=== PATIENT | female | born 1940 | race Caucasian/White ===

== ENCOUNTER → 2016-08-26 | Outpatient (CLI) | payer OTHER ==
[~2016-08-26] MED LIST: ATOR-26 PO; INDA1TAB3 PO; NABU500T3 PO; PRED-301 PO; PRLSR20 PO; SYN75 PO
--- NOTE | 2016-08-26 14:17 | MAMMOGRAPHY REPORT ---
BILATERAL DIGITAL SCREENING MAMMOGRAM WITH CAD: 08/26/2016 CLINICAL HISTORY: Routine screening. Patient has no complaints. TECHNIQUE: Current study was also evaluated with a Computer Aided Detection (CAD) system. Bilatera l CC and MLO views were obtained. COMPARISON: Comparison is made to exams dated: 10/22/2014 mammogram, 08/29/2012 mammogram, 09/07/2013 mammogram, 07/13/2011 mammogram, 06/29/2010 mammogram, and 06/13/2009 mammogram - [facility]. BREAST COMPOSITION: The tissue of both breasts is heterogeneously dense, which may obscure small ma sses. FINDINGS: No suspicious masses, calcifications, or areas of architectural distortion are noted in e ither breast. There has been no significant interval change compared to prior exams. Bilateral dennis gn vascular calcifications are again noted. IMPRESSION: ACR BI-RADS CATEGORY 2: BENIGN There is no mammographic evidence of malignancy. A 1 year screening mammogram is recommended. The p atient will receive written notification of the results. Approximately 10% of breast cancers are not detected with mammography. A negative mammographic repor t should not delay biopsy if a clinically suggestive mass is present. Amy Schroeder M.D. ah/:08/26/2016 13:45:24 Strategic Sourcing Specialist: Yumiko ARRIOLA(R)(M), [facility] letter sent: Normal 1/2 BI-RADS Code: ACR BI-RADS Category 2: Benign
== END | disposition home or self-care (01) ==
LOC: C.MAMM 13:14
PROVIDERS: ATTEND Internal Medicine
DX: Z12.31 Encounter for screening mammogram for malignant neoplasm of breast (principal); M79.671 Pain in right foot

== ENCOUNTER → 2016-08-26 | Outpatient (CLI) | payer OTHER | END | disposition home or self-care (01) | LOC: C.CPL 14:04 | PROVIDERS: ATTEND Orthopaedic Surgery Sports Medicine | DX: M79.671 Pain in right foot (principal) ==

== ENCOUNTER → 2016-11-02 | Outpatient (CLI) | payer OTHER ==
[2016-11-02 10:20] LABS: BASO % 0.2 %; BASO ABS # 0.02 K/uL (0-0.2); COMPLETE YES; EOS % 2.6 %; HEMATOCRIT 37.8 % (37-47); IG% 0.5 %; MEAN CELL VOLUME 86.7 fL (80-100); MEAN CORPUSCULAR HEMOGLOBIN 27.8 pg (25-34); MEAN PLATELET VOLUME 8.4 fL (7.4-10.4); MONO % 8.4 %; NEUT % 44.3 %; PLATELET COUNT 274 K/uL (130-400); RED BLOOD COUNT 4.36 M/uL (4.2-5.4); WHITE BLOOD COUNT 9.32 K/uL (4.8-10.8)
[2016-11-02 10:53] LABS: BLOOD UREA NITROGEN 25 mg/dl (7-18); BUN/CREATININE RATIO 16.8 (10-20); CALCIUM 8.5 mg/dl (8.5-10.1); CARBON DIOXIDE 29 mmol/L (21-32); CHLORIDE 106 mmol/L (98-107); GLUCOSE 74 mg/dl (70-99); POTASSIUM 4.3 mmol/L (3.5-5.1); SODIUM 141 mmol/L (136-145)
[2016-11-02 11:03] LABS: ESTIMATED AVERAGE GLUCOSE 126 mg/dl; HA1C FLAG Normal (Normal)
[2016-11-02 11:05] LABS: C-REACTIVE PROTEIN 5.69 mg/dl (0-0.29)
--- NOTE | 2016-11-11 11:53 | CODING QUERY MEDICAL NECESSITY ---
SUPPORTING DIAGNOSIS NEEDED A supporting diagnosis is required for the test/procedure performed on this patient in order for us to be reimbursed by the patient's insurance. Please provide a supporting diagnosis for the following test/procedure listed below next to the test name along with your signature. *If there is no additional diagnosis for this patient that would support the following test/procedure please document that below next to the test/procedure. Test(s)/Procedure(s) that require a supporting diagnosis: * GLYCATED HEMOGLOBIN DIAGNOSIS: * DOS:11/02/16 Provider Signature: Date: Thank you Floresita Young Health Information Management Once completed, please kindly fax back to [phone] For questions please call [phone]
== END | disposition home or self-care (01) ==
LOC: C.LAB1850 08:58
PROVIDERS: ATTEND Physician Assistant
DX: M19.90 Unspecified osteoarthritis, unspecified site (principal); N28.9 Disorder of kidney and ureter, unspecified; M06.4 Inflammatory polyarthropathy; R73.9 Hyperglycemia, unspecified

== ENCOUNTER → 2017-03-11 | Outpatient (CLI) | payer OTHER ==
[2017-03-11 12:14] LABS: BASO % 0.3 %; BASO ABS # 0.03 K/uL (0-0.2); COMPLETE YES; EOS % 1.7 %; HEMATOCRIT 39.7 % (37-47); IG% 0.7 %; LYMPH % 26.9 %; LYMPH ABS # 2.43 K/uL (1.2-3.4); MEAN CELL VOLUME 89.4 fL (80-100); MEAN CORPUSCULAR HEMOGLOBIN 28.4 pg (25-34); MEAN CORPUSCULAR HGB CONC 31.7 g/dl (32-36); MEAN PLATELET VOLUME 8.7 fL (7.4-10.4); MONO % 6.4 %; PLATELET COUNT 261 K/uL (130-400); RED BLOOD COUNT 4.44 M/uL (4.2-5.4); WHITE BLOOD COUNT 9.05 K/uL (4.8-10.8)
[2017-03-11 12:34] LABS: ALT/SGPT 26 U/L (12-78); AST/SGOT 21 U/L (15-37)
[2017-03-11 12:36] LABS: ALKALINE PHOSPHATASE 68 U/L (45-117)
== END | disposition home or self-care (01) ==
LOC: C.LAB1850 09:42
PROVIDERS: ATTEND Internal Medicine Rheumatology
DX: M06.041 Rheumatoid arthritis without rheumatoid factor, right hand (principal); M06.042 Rheumatoid arthritis without rheumatoid factor, left hand; Z79.52 Long term (current) use of systemic steroids; Z79.899 Other long term (current) drug therapy

== ENCOUNTER → 2017-04-25 | Outpatient (CLI) | payer OTHER ==
[2017-04-25 10:33] LABS: BASO % 0.1 %; BASO ABS # 0.01 K/uL (0-0.2); COMPLETE YES; EOS % 2.1 %; HEMATOCRIT 39.8 % (37-47); IG% 0.6 %; LYMPH % 39.6 %; LYMPH ABS # 3.45 K/uL (1.2-3.4); MEAN CELL VOLUME 89.8 fL (80-100); MEAN CORPUSCULAR HEMOGLOBIN 28.9 pg (25-34); MEAN CORPUSCULAR HGB CONC 32.2 g/dl (32-36); MEAN PLATELET VOLUME 8.7 fL (7.4-10.4); MONO % 8.5 %; NEUT % 49.1 %; PLATELET COUNT 241 K/uL (130-400); RED BLOOD COUNT 4.43 M/uL (4.2-5.4); WHITE BLOOD COUNT 8.71 K/uL (4.8-10.8)
[2017-04-25 10:57] LABS: ALT/SGPT 23 U/L (12-78); AST/SGOT 18 U/L (15-37); BLOOD UREA NITROGEN 39 mg/dl (7-18); BUN/CREATININE RATIO 24.5 (10-20); CALCIUM 8.6 mg/dl (8.5-10.1); CARBON DIOXIDE 27 mmol/L (21-32); CHLORIDE 106 mmol/L (98-107); GLUCOSE 79 mg/dl (70-99); POTASSIUM 4.4 mmol/L (3.5-5.1); SODIUM 140 mmol/L (136-145)
[2017-04-25 11:08] LABS: CHOLESTEROL 154 mg/dl (0-200); CHOLESTEROL/HDL RATIO 1.8; HDL CHOLESTEROL 85 mg/dl; LDL CHOLESTEROL CALCULATED 35 mg/dl; TRIGLYCERIDES 171 mg/dl (0-150); VERY LOW DENSITY LIPOPROT CALC 34 mg/dl
[2017-04-25 11:28] LABS: ESTIMATED AVERAGE GLUCOSE 123 mg/dl; HA1C FLAG Normal (Normal)
[2017-04-25 17:59] LABS: URINE APPEARANCE CLEAR (CLEAR); URINE BILIRUBIN NEG (NEG); URINE COLOR YELLOW; URINE EPITHELIAL CELL AUTO 0-5 /lpf (0-5); URINE NITRITE NEG (NEG); URINE SPECIFIC GRAVITY 1.019 (1.000-1.030); UROBILINOGEN NEG (NEG)
[2017-04-25 18:03] LABS: MANUAL MICROSCOPIC REQUIRED? NO; REVIEW REQ? NO
--- NOTE | 2017-04-29 12:36 | CODING QUERY MEDICAL NECESSITY ---
SUPPORTING DIAGNOSIS NEEDED A supporting diagnosis is required for the test/procedure performed on this patient in order for us to be reimbursed by the patient's insurance. Please provide a supporting diagnosis for the following test/procedure listed below next to the test name along with your signature. *If there is no additional diagnosis for this patient that would support the following test/procedure please document that below next to the test/procedure. Test(s)/Procedure(s) that require a supporting diagnosis: * HEMOGLOBIN A1C DIAGNOSIS: Provider Signature: Date: Thank you Sharlene Mace [employer] Information Management Once completed, please kindly fax back to [phone] For questions please call [phone]
== END | disposition home or self-care (01) ==
LOC: C.LABBC 08:23
PROVIDERS: ATTEND Internal Medicine
DX: E78.00 Pure hypercholesterolemia, unspecified (principal)

== ENCOUNTER → 2017-07-27 | Outpatient (CLI) | payer OTHER ==
--- NOTE | 2017-07-27 17:16 | DIAGNOSTIC IMAGING REPORT ---
R SHOULDER MIN 2 VIEWS ROUTINE CLINICAL HISTORY: 76 years-old Female presenting with S49.90XA Shoulder injuryright. TECHNIQUE: Internal rotation, external rotation, and Grashey views of the right shoulder were obtained. COMPARISON: Correlation made to chest x-ray from 04/30/2013. FINDINGS: Glenohumeral and acromioclavicular joints congruent. No advanced degenerative change. No acute fracture or malalignment. Cystic change suggested at the greater tuberosity suggesting chronic impingement. No radiographic soft tissue abnormality. Visualized portion of the right hemithorax normal. IMPRESSION: No acute osseous injury of the right shoulder. Electronically signed by: Ronak Guajardo M.D. 07/27/2017 5:14 PM Dictated Date/Time: 07/27/2017 5:13 PM
== END | disposition home or self-care (01) ==
LOC: C.RAD1850 16:17
PROVIDERS: ATTEND Physician Assistant
DX: S49.90XA Unspecified injury of shoulder and upper arm, unspecified arm, initial encounter (principal); X58.XXXA Exposure to other specified factors, initial encounter

== ENCOUNTER → 2017-09-13 | Outpatient (CLI) | payer OTHER ==
--- NOTE | 2017-09-14 13:59 | MAMMOGRAPHY REPORT ---
BILATERAL DIGITAL SCREENING MAMMOGRAM TOMOSYNTHESIS WITH CAD: 09/13/2017 CLINICAL HISTORY: Routine screening. Patient has no complaints. TECHNIQUE: Breast tomosynthesis in addition to standard 2D mammography was performed. Current study was also evaluated with a Computer Aided Detection (CAD) system. COMPARISON: Comparison is made to exams dated: 08/26/2016 mammogram, 10/22/2014 mammogram, 09/07/2013 m ammogram, 08/29/2012 mammogram, 07/13/2011 mammogram, and 06/29/2010 mammogram - [facility]. BREAST COMPOSITION: The tissue of both breasts is heterogeneously dense, which may obscure small mas ses. FINDINGS: There are moderate to marked vascular calcifications in the breasts. The parenchymal patte rn is unchanged. No developing mass, architectural distortion or cluster of suspicious microcalcifica tions is seen in either breast. IMPRESSION: ACR BI-RADS CATEGORY 2: BENIGN There is no mammographic evidence of malignancy. A 1 year screening mammogram is recommended. The pa tient will receive written notification of the results. Approximately 10% of breast cancers are not detected with mammography. A negative mammographic report should not delay biopsy if a clinically suggestive mass is present. Cristine Ervin M.D. ay/:09/13/2017 15:30:32 Software Client Architect: Saranya MOBLEY)(Haf[place])(BD), [facility] letter sent: Normal 1/2 BI-RADS Code: ACR BI-RADS Category 2: Benign
== END ==
LOC: C.MAMM 13:22
PROVIDERS: ATTEND Internal Medicine
DX: Z12.31 Encounter for screening mammogram for malignant neoplasm of breast (principal)

== ENCOUNTER → 2017-11-11 | Outpatient (CLI) | payer OTHER ==
[2017-11-11 09:35] LABS: BASO % 0.4 %; BASO ABS # 0.03 K/uL (0-0.2); EOS % 2.3 %; EOS ABS # 0.19 K/uL (0-0.5); HEMATOCRIT 40.1 % (37-47); HEMOGLOBIN 13.2 g/dL (12.0-16.0); IG# 0.05 K/uL (0.00-0.02); LYMPH % 44.8 %; MEAN CELL VOLUME 91.8 fL (80-100); MEAN CORPUSCULAR HEMOGLOBIN 30.2 pg (25-34); MEAN CORPUSCULAR HGB CONC 32.9 g/dl (32-36); MEAN PLATELET VOLUME 8.2 fL (7.4-10.4); MONO % 9.4 %; MONO ABS # 0.78 K/uL (0.11-0.59); NEUT % 42.5 %; NEUT ABS # 3.51 K/uL (1.4-6.5); PLATELET COUNT 238 K/uL (130-400); RED CELL DISTRIBUTION WIDTH SD 47.5 fL (36.4-46.3); WHITE BLOOD COUNT 8.26 K/uL (4.8-10.8)
[2017-11-11 09:48] LABS: ALBUMIN 3.5 gm/dl (3.4-5.0); ALT/SGPT 23 U/L (12-78); BLOOD UREA NITROGEN 38 mg/dl (7-18); CALCIUM 8.9 mg/dl (8.5-10.1); CARBON DIOXIDE 27 mmol/L (21-32); CHOLESTEROL 131 mg/dl (0-200); CREATININE 1.52 mg/dl (0.60-1.20); GLUCOSE 71 mg/dl (70-99); SODIUM 137 mmol/L (136-145)
[2017-11-11 09:57] LABS: ALKALINE PHOSPHATASE 71 U/L (45-117); AST/SGOT 21 U/L (15-37); LDL CHOLESTEROL CALCULATED 38 mg/dl; TOTAL PROTEIN 6.8 gm/dl (6.4-8.2)
[2017-11-11 10:01] LABS: HEMOGLOBIN A1C 5.8 % (4.5-5.6)
[2017-11-11 10:13] LABS: CREATININE RANDOM URINE 67.7 mg/dl
== END | disposition home or self-care (01) ==
LOC: C.LAB 07:42
PROVIDERS: ATTEND Internal Medicine
DX: M85.80 Other specified disorders of bone density and structure, unspecified site (principal); M19.90 Unspecified osteoarthritis, unspecified site; M06.041 Rheumatoid arthritis without rheumatoid factor, right hand; M06.042 Rheumatoid arthritis without rheumatoid factor, left hand; E78.00 Pure hypercholesterolemia, unspecified; Z79.899 Other long term (current) drug therapy

== ENCOUNTER → 2017-11-17 | Outpatient (CLI) | payer OTHER ==
--- NOTE | 2017-11-17 10:27 | DIAGNOSTIC IMAGING REPORT ---
ULTRASOUND ABDOMEN COMPLETE CLINICAL HISTORY: Generalized abdominal pain. COMPARISON STUDY: Abdominal CT dated 12/06/2007. TECHNIQUE: Real-time, grayscale, and color flow sonography of the abdomen was performed. Images are reviewed in the transverse and longitudinal planes. FINDINGS: Liver: The liver is normal in size and echotexture. There is no intrahepatic biliary ductal dilatation. The main portal vein is patent. Gallbladder: The gallbladder is normal in appearance. No gallstones are identified. There is no gallbladder wall thickening or pericholecystic fluid. A sonographic Guido's sign is reportedly absent. The common bile duct measures up to 0.4 cm in diameter. Pancreas: Visualized portions of the pancreatic head are grossly normal in appearance. The majority of the pancreas was not well visualized. Spleen: The spleen is normal in size and echotexture, measuring 7.6 cm in length. Kidneys: There is markedly asymmetric cortical atrophy of the left kidney as compared to the right. The left kidney is echogenic consistent with medical renal disease. There is no hydronephrosis. The right kidney measures 11.0 cm in length and the left kidney measures 5.2 cm in length. No shadowing calculi are identified. Abdominal vasculature: Visualized portions of the abdominal aorta are normal in caliber. Ascites: None. IMPRESSION: 1. No acute sonographic abnormality is identified. 2. There is markedly asymmetric cortical atrophy of the left kidney as compared to the right. This is similar to prior studies. 3. No gallstones are identified. Electronically signed by: Yanick Wolfe M.D. 11/17/2017 10:25 AM Dictated Date/Time: 11/17/2017 10:23 AM
== END | disposition home or self-care (01) ==
LOC: C.ULTR 09:00
PROVIDERS: ATTEND Internal Medicine
DX: R10.819 Abdominal tenderness, unspecified site (principal)

== ENCOUNTER → 2017-12-06 | Day surgery (SDC) | payer OTHER ==
[2017-12-01 08:54] VITALS: Ht 148.6 cm; Wt 60.0 kg
[~2017-12-06] VITALS: Ht 148.6 cm; Wt 60.0 kg
[~2017-12-06] MED LIST changes: +ACET-1311 PO; +CALC-51 PO; +CHOL2000 PO; +CYCL10TA6 PO; +DIAZ-165 PO; +DICL1GEL12 TD; +EZET10TA63 PO; +FENTANYL CITRATE INJ 50 MCG/1 ML 2 ML VIAL ONE; +HYDR200T5 PO; -INDA1TAB3 PO; +LEVO75TA5 PO; +LIDOCAINE HCL 2% 2 ML VIAL (20MG/ML) ONE; +LISI-729 PO; +MELO7.5T5 PO; +MULTTAB58 PO; -NABU500T3 PO; +OXYC-57 PO; +PROPOFOL IV EMULSION 10 MG/ML 20 ML VIAL ONE; +SODIUM CHLORIDE 0.9% 500ML 500 ML IV ONE; -SYN75 PO; +ULT50 PO
--- NOTE | 2017-12-06 11:53 | Endo History and Physical ---
History & Physical Date of Service: December 06, 2017. Chief Complaint: Change in bowel habits, GERD, Early satiety Referring Physician: Dr. Medina History of Present Illness 77 yo CF who presents for EGD and colonoscopy secondary to GERD, Early satiety and change in bowel habits. Past Surgical History Hx Cardiac Surgery: No Hx Internal Defibrillator: No Hx Pacemaker: No Hx Abdominal Surgery: Yes (HYSTERECTOMY, A&P REPAIR) Hx Post-Op Nausea and Vomiting: No Hx Cancer Surgery: No Hx Thoracic Surgery: No Hx Orthopedic: Yes (R FOOT 2ND TOE AMPUTATED) Hx Urinary Tract Surgery: Yes (URETEROLYSIS-MARCOS) Social History Smoking Status: Former Smoker Hx Substance Use: Yes (OXYCODONE PRN ) Hx Alcohol Use: Yes (OCCASIONAL GLASS OF WINE) Allergies Coded Allergies: No Known Allergies (Verified , 12/01/17) Current Medications Reported Home Medications Medications Dose Route/Sig Max Daily Dose Days Date Category Dose Instructions Vitamin D3 (Cholecalciferol) 2,000 Unit Cap 1 Cap PO DAILY 30 12/01/17 Reported Tylenol (Acetaminophen) 325 Mg Tab 325 Mg PO Q6H PRN 12/01/17 Reported Tramadol HCl 50 Mg Tab 1-2 Tabs PO Q4H PRN 12/01/17 Reported Percocet 5MG/325MG (Oxycodone/Acetaminophen) Tab 1 Tablet PO Q4H PRN 12/01/17 Reported PAIN Multivitamin (Multiple Vitamin) 1 Tab Tab 1 Tab PO DAILY 90 12/01/17 Reported Mobic (Meloxicam) 7.5 Mg Tab 7.5 Mg PO BID 12/01/17 Reported Prinivil (Lisinopril) 5 Mg Tab 5 Mg PO QAM 12/01/17 Reported Plaquenil (Hydroxychloroquine Sulfate) 200 Mg Tab 200 Mg PO DAILY 12/01/17 Reported Zetia (Ezetimibe) 10 Mg Tab 10 Mg PO DAILY 12/01/17 Reported Voltaren 1% Top Gel (Diclofenac Sodium (Topical)) 1 % Gel TD QID 12/01/17 Reported Valium (Diazepam) 5 Mg Tab 5 Mg PO DIRECTED PRN 12/01/17 Reported Flexeril (Cyclobenzaprine Hcl) 10 Mg Tab 1 Tab PO HS 30 12/01/17 Reported Calcium (Calcium Carbonate-Vitamin D) 1 Tab Tab 2 Tabs PO BID 12/01/17 Reported Levothyroxine Sodium 75 Mcg Tab 1 Tab PO DAILY 30 12/01/17 Reported Lipitor (Atorvastatin Calcium) 80 Mg Tab 80 Mg PO DAILY 11/26/07 Reported Prednisone 5 Mg Tab 7.5 Mg PO DAILY 11/26/07 Reported TAKES 1 1/2 TABS Prilosec (Omeprazole) 20 Mg Capcr 20 Mg PO BID 11/26/07 Reported Vital Signs Weight (Kilograms): 60 Height (Feet): 4 Height (Inches): 10.5 Physical Exam General Appearance: WD/WN, no apparent distress Respiratory/Chest: Auscultation: breath sounds normal Cardiovascular: Heart Auscultation: RRR Abdomen: Bowel Sounds: normal Inspection & Palpation: soft, non-distended, no tenderness, guarding & rebound Assessment and Plan Assessment: 77 yo CF who presents for EGD and colonoscopy secondary to GERD, Early satiety and change in bowel habits. Plan: Proceed with EGD and Colonoscopy.
--- NOTE | 2017-12-06 13:59 | Discharge Instructions ---
Endoscopy Patient Instructions Date / Procedure(s) Performed December 06, 2017. Colonoscopy, EGD Allergy Information Coded Allergies: No Known Allergies (Verified , 12/01/17) Discharge Date / Findings December 06, 2017. EGD: Hiatal hernia Colonoscopy: Diverticulosis, Internal hemorrhoids Medication Instructions Stopped Medication(s): Patient was told to hold mobic and plaquenil. OK to resume all medications today as prescribed Reported Home Medications Medications Dose Route/Sig Max Daily Dose Days Date Category Dose Instructions Vitamin D3 (Cholecalciferol) 2,000 Unit Cap 1 Cap PO DAILY 30 12/01/17 Reported Tylenol (Acetaminophen) 325 Mg Tab 325 Mg PO Q6H PRN 12/01/17 Reported Tramadol HCl 50 Mg Tab 1-2 Tabs PO Q4H PRN 12/01/17 Reported Percocet 5MG/325MG (Oxycodone/Acetaminophen) Tab 1 Tablet PO Q4H PRN 12/01/17 Reported PAIN Multivitamin (Multiple Vitamin) 1 Tab Tab 1 Tab PO DAILY 90 12/01/17 Reported Mobic (Meloxicam) 7.5 Mg Tab 7.5 Mg PO BID 12/01/17 Reported Prinivil (Lisinopril) 5 Mg Tab 5 Mg PO QAM 12/01/17 Reported Plaquenil (Hydroxychloroquine Sulfate) 200 Mg Tab 200 Mg PO DAILY 12/01/17 Reported Zetia (Ezetimibe) 10 Mg Tab 10 Mg PO DAILY 12/01/17 Reported Voltaren 1% Top Gel (Diclofenac Sodium (Topical)) 1 % Gel TD QID 12/01/17 Reported Valium (Diazepam) 5 Mg Tab 5 Mg PO DIRECTED PRN 12/01/17 Reported Flexeril (Cyclobenzaprine Hcl) 10 Mg Tab 1 Tab PO HS 30 12/01/17 Reported Calcium (Calcium Carbonate-Vitamin D) 1 Tab Tab 2 Tabs PO BID 12/01/17 Reported Levothyroxine Sodium 75 Mcg Tab 1 Tab PO DAILY 30 12/01/17 Reported Lipitor (Atorvastatin Calcium) 80 Mg Tab 80 Mg PO DAILY 11/26/07 Reported Prednisone 5 Mg Tab 7.5 Mg PO DAILY 11/26/07 Reported TAKES 1 1/2 TABS Prilosec (Omeprazole) 20 Mg Capcr 20 Mg PO BID 11/26/07 Reported Provider Instructions Activity Restrictions - No exercising or heavy lifting for 24 hours. - Do not drink alcohol the day of the procedure. - Do not drive a car or operate machinery until the day after the procedure. - Do not make any important decisions or sign important papers in 24 hours after the procedure. Following Day: - Return to full activity which may include returning to work/school. Diet Start your diet with liquids and light foods (jello, soup, juice, toast). Then eat your usual diet if not nauseated. Treatment For Common After Affects For mild abdominal pain, bloating, or excessive gas: - Rest - Eat lightly - Lie on right side Follow-Up Information Follow-up with Dr. Burke Medina as scheduled Anesthesia Information What You Should Know You have had a procedure that required some medicine to reduce anxiety and discomfort. This treatment is called moderate sedation. After receiving the treatment, you may be sleepy, but you will be able to breathe on your own. The effects of the treatment may last for several hours. Follow these instructions along with Activity/Diet recommendations noted above: * Do NOT do anything where dizziness or clumsiness would be dangerous. * Rest quietly at home today, then you can be up and about tomorrow. * Have a responsible person stay with you the rest of today. * You may have had an I.V. today. If so, you may take the dressing off later today. Recommendations Call your doctor if: * Trouble breathing * Continuous vomiting for more than 24 hours * Temperature above 101 degrees * Severe abdominal pain or bloating * Pain not relieved by pain medicine ordered * There is increased drainage or redness from any incision * A large amount of rectal bleeding greater than 2-3 tablespoons. (If you had a polyp/s removed or have hemorrhoids, a small amount of blood - from the rectum is to be expected.) * You have any unanswered questions or concerns. IN THE EVENT OF A SERIOUS EMERGENCY, GO TO THE NEAREST EMERGENCY ROOM Your discharge instructions were prepared by provider Shawn Jama. Patient Instructions Signature Page Shruthi Brannon Patient (or Guardian) Signature/Date: I have read and understand the instructions given to me by my caregivers. Caregiver/RN/Doctor Signature/Date: The above-named patient and/or guardian has received patient instructions on this date. + Original Patient Signature Page (only) stays with chart. Please make copy for patient.
--- NOTE | 2017-12-06 14:01 | GI REPORT ---
Patient Name: Shruthi Brannon Procedure Date: 12/06/2017 12:10 PM Date of : 1940 Admit Type: Outpatient Age: 77 Gender: Female Attending MD: Shawn Jama DO Procedure: Upper GI endoscopy Providers: Shawn Jama DO Referring MD: Burke Medina Indications: Gastro-esophageal reflux disease, Early satiety Medicines: Monitored Anesthesia Care Complications: No immediate complications. Estimated Blood Loss: Estimated blood loss: none. Procedure: Pre-Anesthesia Assessment: - Prior to the procedure, a History and Physical was performed, and patient medications and allergies were reviewed. The patient's tolerance of previous anesthesia was also reviewed. The risks and benefits of the procedure and the sedation options and risks were discussed with the patient. All questions were answered, and informed consent was obtained. Prior Anticoagulants: The patient has taken no previous anticoagulant or antiplatelet agents. ASA Grade Assessment: III - A patient with severe systemic disease. After reviewing the risks and benefits, the patient was deemed in satisfactory condition to undergo the procedure. After obtaining informed consent, the endoscope was passed under direct vision. Throughout the procedure, the patient's blood pressure, pulse, and oxygen saturations were monitored continuously. The scope was introduced through the mouth, and advanced to the second part of duodenum. The upper GI endoscopy was accomplished without difficulty. The patient tolerated the procedure well. Findings: The esophagus was normal. A large hiatal hernia was present. The examined duodenum was normal. Impression: - Normal esophagus. - Large hiatal hernia. - Normal examined duodenum. - No specimens collected. Recommendation: - Resume previous diet. - Continue present medications. - Return to primary care physician as previously scheduled. - Refer to a surgeon at appointment to be scheduled. Shawn Jama DO 12/06/2017 2:01:32 PM This report has been signed electronically. Note Initiated On: 12/06/2017 12:10 PM Number of Addenda: 0 I attest to the content of the Intraoperative Record and orders documented therein, exceptions below {[id number]}
--- NOTE | 2017-12-06 14:06 | GI REPORT ---
Patient Name: Shruthi Brannon Procedure Date: 12/06/2017 1:25 PM Date of : 1940 Admit Type: Outpatient Age: 77 Gender: Female Attending MD: Shawn Jama DO Procedure: Colonoscopy Providers: Shawn Jama DO Referring MD: Burke Medina Indications: Change in bowel habits Medicines: Monitored Anesthesia Care Complications: No immediate complications. Estimated Blood Loss: Estimated blood loss: none. Procedure: Pre-Anesthesia Assessment: - Prior to the procedure, a History and Physical was performed, and patient medications and allergies were reviewed. The patient's tolerance of previous anesthesia was also reviewed. The risks and benefits of the procedure and the sedation options and risks were discussed with the patient. All questions were answered, and informed consent was obtained. Prior Anticoagulants: The patient has taken no previous anticoagulant or antiplatelet agents. ASA Grade Assessment: III - A patient with severe systemic disease. After reviewing the risks and benefits, the patient was deemed in satisfactory condition to undergo the procedure. After I obtained informed consent, the scope was passed under direct vision. Throughout the procedure, the patient's blood pressure, pulse, and oxygen saturations were monitored continuously. The scope was introduced through the anus and advanced to the terminal ileum. The quality of the bowel preparation was good. The terminal ileum, ileocecal valve, appendiceal orifice, and rectum were photographed. The colonoscopy was performed with moderate difficulty due to restricted mobility of the colon and a redundant colon. Successful completion of the procedure was aided by changing the patient to a supine position and applying abdominal pressure. The patient tolerated the procedure fairly well. Findings: The perianal and digital rectal examinations were normal. Multiple small-mouthed diverticula were found in the sigmoid colon. Non-bleeding internal hemorrhoids were found during retroflexion. The hemorrhoids were small. Impression: - Diverticulosis in the sigmoid colon. - Non-bleeding internal hemorrhoids. - No specimens collected. Recommendation: - Resume previous diet. - Continue present medications. - No repeat colonoscopy due to age and the absence of advanced adenomas. - Return to primary care physician as previously scheduled. Shawn Jama DO 12/06/2017 2:05:46 PM This report has been signed electronically. Note Initiated On: 12/06/2017 1:25 PM Number of Addenda: 0 I attest to the content of the Intraoperative Record and orders documented therein, exceptions below {[id number]}
[2017-12-06 14:22] VITALS: BP 145/97; PULSE 82; O2SAT 100
--- NOTE | 2017-12-06 14:35 | Anesthesiology Progress Note ---
Anesthesia Post Op Note Date & Time December 06, 2017 at 14:34 Vital Signs Pain Intensity: 0 Vital Signs Past 12 Hours Date Time Temp Pulse Resp B/P (MAP) Pulse Ox O2 Delivery O2 Flow Rate FiO2 12/06/17 14:22 82 20 145/97 (113) 100 Room Air 12/06/17 14:12 79 20 153/68 (96) 99 Room Air 12/06/17 14:02 88 20 160/90 (113) 98 Room Air 12/06/17 12:02 36.7 104 22 191/95 (127) 98 Room Air Notes Mental Status: alert / awake / arousable, participated in evaluation Pt Amnestic to Procedure: Yes Nausea / Vomiting: adequately controlled Pain: adequately controlled Airway Patency, RR, SpO2: stable & adequate BP & HR: stable & adequate Hydration State: stable & adequate Anesthetic Complications: no major complications apparent
== END | disposition home or self-care (01) ==
LOC: C.GI 11:35
PROVIDERS: ATTEND Internal Medicine
DX: R19.4 Change in bowel habit (principal); K21.9 Gastro-esophageal reflux disease without esophagitis; R68.81 Early satiety; K57.30 Diverticulosis of large intestine without perforation or abscess without bleeding; K64.8 Other hemorrhoids; K44.9 Diaphragmatic hernia without obstruction or gangrene; I10 Essential (primary) hypertension; N18.9 Chronic kidney disease, unspecified; Z90.710 Acquired absence of both cervix and uterus; Z89.421 Acquired absence of other right toe(s); Z87.891 Personal history of nicotine dependence; Z79.899 Other long term (current) drug therapy; Z85.71 Personal history of Hodgkin lymphoma

== ENCOUNTER 2018-08-15 06:27 | Inpatient (IN) ==
--- NOTE | 2018-07-26 13:24 | Anesthesiology Consultation ---
Date of Service July 26, 2018 Assessment & Plan (1) Encounter for pre-operative examination: Chart Review Chart Review: Acceptable Risk for Surgery (PENDING REVIEW OF PREOP LABS) and Patient seen in Pre Admission Testing Teaching & Discussion Pre-Anesthesia Teaching/Discussion Notes: Instructed NPO after midnight before surgery,except medications with 15 cc of water. Medication instructions provided according to the PAT guidelines. History Surgery Operation Date: 08/15/18 12:30 Proposed Procedures p Right Total Knee Arthroplasty - Rudolph Rodriguez MD Height/Weight Height: 4 ft 10.5 in Weight: 60.5 kg Allergies Allergy/AdvReac Type Severity Reaction Status Date / Time No Known Allergies Allergy Unknown Verified 07/21/18 14:06 Medications Home Medications Medication Instructions Recorded Confirmed Last Taken atorvastatin 80 mg PO HS 05/05/18 07/21/18 05/04/18 cholecalciferol (vitamin D3) 2,000 unit PO QAM 05/05/18 07/21/18 05/05/18 [Vitamin D3] cyclobenzaprine 10 mg PO HS 05/05/18 07/21/18 05/04/18 ezetimibe [Zetia] 10 mg PO QAM 05/05/18 07/21/18 05/05/18 hydroxychloroquine [Plaquenil] 200 mg PO QAM 05/05/18 07/21/18 05/05/18 levothyroxine 75 mcg PO QAM 05/05/18 07/21/18 05/05/18 meloxicam 7.5 mg PO BID 05/05/18 07/21/18 05/05/18 multivitamin 1 tab PO QDD 05/05/18 07/21/18 05/05/18 omeprazole 20 mg PO BID 05/05/18 07/21/18 05/05/18 prednisone 7.5 mg PO DAILY 05/05/18 07/21/18 05/05/18 tramadol 50 - 100 mg PO Q6H PRN 05/05/18 07/21/18 Unknown acetaminophen [Tylenol Extra 1,000 mg PO UD PRN 07/21/18 07/21/18 Unknown Strength] calcium carbonate [Calcium 600] 600 mg PO UD 07/21/18 07/21/18 Unknown lisinopril 10 mg PO QAM 07/21/18 07/21/18 Unknown oxycodone-acetaminophen 1 - 2 tab PO Q6H PRN 07/21/18 07/21/18 Unknown Past Medical History Medical History Acid reflux CONTROLLED Chronic kidney disease 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 Hiatal hernia History of Hodgkin's lymphoma S/P RADIATION/CHEMO (2000) Hyperlipidemia Hypertension Hypothyroidism Mixed stress and urge urinary incontinence Rheumatoid arthritis ON PLAQUENIL AND CHRONIC PREDNISONE 7.5MG DAILY Sciatica Scoliosis Past Family History Family History Mother Family history of lung cancer Brother Family history of lung cancer Past Surgical History Surgical History History of bilateral cataract extraction RIGHT CATARACT EXTRACTION WITH IOL= 04/05/18= MAC SEDATION AT [facility] History of colonoscopy History of gynecologic surgery ANTERIOR AND POSTERIOR REPAIR History of hysterectomy History of removal of cyst HEAD (BENIGN) History of tonsillectomy History of urologic surgery URETEROLYSIS Past Anesthesia History No Hx of Anesthesia Complications and No Family Hx of Anesthesia Complications History of PONV No Motion Sickness Screening History of Motion Sickness: No Social History Smoking Status: Former smoker Smoking cigarettes per day: QUIT 1985 Do You Dip or Chew Tobacco: No Hx Alcohol Use: Yes Alcohol type: wine alcohol intake frequency: holidays/special occasions only Hx Substance Use: No substance use type: does not use Exercise / Class Metabolic Activity III < 4 Walking/Shop/Light housework Review of Systems Reflux controlled. Patient denies chest pain, shortness of breath, cough, wheezing, palpitations. Physical Exam Vital Signs VITALS BP 114/73 P 95 TEMP 99.0 SP02 94%RA RESP 20 Mildly decreased cervical extension. Small neck. Full TMJ range of motion. TMD 3 finger breaths Mallampati Score 2 Dentition: upper left front permanent implant (plan for cap procedure prior to surgery- surgeon aware) Lungs: clear throughout to auscultation Cardiac: regular rate and rhythm, no murmurs noted Spine: normal Carotid arteries: negative bruit Extremities: no edema Testing Electrocardiogram Date: 05/05/18 NSR at 81bpm. LAD. Voltage criternia for LVH. No significant change compared to 08/2016 per cardio. Chest X-Ray Date: 07/26/18 Large hiatal hernia. The heart is top normal for projection and there is atherosclerotic calcification of the thoracic aorta. Chronic interstitial thickening is similar to previous. There is mild elevation of the right hemidiaphragm with bibasilar scarring/atelectasis. Cervical Spine Date: 07/26/18 Degenerative changes within the cervical spine described above. Alignment remains intact throughout flexion and extension.
--- NOTE | 2018-07-26 13:27 | PAT Medication Instructions ---
Medication Instructions Date of Service July 26, 2018 Home Medications atorvastatin 80 mg PO HS cholecalciferol (vitamin D3) 2,000 unit PO QAM cyclobenzaprine 10 mg PO HS ezetimibe [Zetia] 10 mg PO QAM hydroxychloroquine [Plaquenil] 200 mg PO QAM levothyroxine 75 mcg PO QAM meloxicam 7.5 mg PO BID multivitamin 1 tab PO QDD omeprazole 20 mg PO BID prednisone 7.5 mg PO DAILY tramadol 50 - 100 mg PO Q6H PRN acetaminophen [Tylenol Extra 1,000 mg PO UD PRN calcium carbonate [Calcium 600] 600 mg PO UD lisinopril 10 mg PO QAM oxycodone-acetaminophen 1 - 2 tab PO Q6H PRN Continue as directed prednisone 7.5 mg PO DAILY ASK your surgeon for instructions meloxicam 7.5 mg PO BID ASK your prescriber and surgeon hydroxychloroquine [Plaquenil] 200 mg PO QAM DO NOT take the morning of surgery cholecalciferol (vitamin D3) 2,000 unit PO QAM calcium carbonate [Calcium 600] 600 mg PO UD lisinopril 10 mg PO QAM Take morning of surgery With a small sip of water, OTHERWISE NOTHING TO EAT OR DRINK AFTER MIDNIGHT: ezetimibe [Zetia] 10 mg PO QAM levothyroxine 75 mcg PO QAM omeprazole 20 mg PO BID tramadol 50 - 100 mg PO Q6H PRN (okay to take up to 4 hours prior to surgery if needed) acetaminophen [Tylenol Extra 1,000 mg PO UD PRN (okay to take up to 4 hours prior to surgery if needed) oxycodone-acetaminophen 1 - 2 tab PO Q6H PRN (okay to take up to 4 hours prior to surgery if needed) Take evening before surgery atorvastatin 80 mg PO HS cyclobenzaprine 10 mg PO HS multivitamin 1 tab PO QDD omeprazole 20 mg PO BID tramadol 50 - 100 mg PO Q6H PRN (if needed) acetaminophen [Tylenol Extra 1,000 mg PO UD PRN (if needed) oxycodone-acetaminophen 1 - 2 tab PO Q6H PRN (if needed) Other Notes If you have any questions please call us at [phone] or [phone] or [phone] or [phone]
--- NOTE | 2018-07-26 15:19 | XRay Report ---
XR cervical spine 2 or 3V CLINICAL HISTORY: RHEUMATOID ARTHRITIS. Preop. COMPARISON STUDY: None. FINDINGS: Lateral views of the cervical spine in neutral, flexion, and extension were performed. The cervical spine is visualized from C1 through T1. Severe disc space narrowing at C4-C5, C5-C6, and C6- C7. There is straightening of the cervical spine. Prevertebral soft tissues and the C1-C2 interval ar e intact. Moderate facet degenerative changes within the mid to lower cervical spine. There is 2 mm o f anterolisthesis of C4 and C5 and 1 mm of anterolisthesis of C6 on C7. This is maintained throughout flexion and extension. IMPRESSION: Degenerative changes within the cervical spine described above. Alignment remains intact throughout flexion and extension. Electronically signed by: Guillermo Tolbert M.D. 07/26/2018 3:18 PM
--- NOTE | 2018-07-26 15:25 | XRay Report ---
TWO VIEW CHEST CLINICAL HISTORY: Preoperative examination. FINDINGS: PA and lateral chest radiographs are compared to study dated 05/05/2018 and correlated with chest CT dated 04/28/2012. There is a large hiatal hernia. The heart is top normal for projection and there is atherosclerotic calcification of the thoracic aorta. The mediastinal contour is within bree l limits. Chronic interstitial thickening is similar to previous. There is mild elevation of the righ t hemidiaphragm with bibasilar scarring/atelectasis. There is no airspace consolidation, pleural effu gonzalez, or pneumothorax. The skeletal structures are osteopenic. Degenerative change and scoliosis are noted throughout the thoracic spine. Surgical clips are seen in the upper abdomen. IMPRESSION: 1. No active disease in the chest. 2. Hiatal hernia. Electronically signed by: Yanick Wolfe M.D. 07/26/2018 3:24 PM
[2018-07-26 15:58] LABS: Basophils # (auto) 0.01 K/uL (0-0.2); Basophils % (auto) 0.1 %; Eosinophils # (auto) 0.02 K/uL (0-0.5); Eosinophils % (auto) 0.2 %; Hematocrit (blood only) 38.2 % (37-47); Hemoglobin 12.4 g/dL (12.0-16.0); Immature Granulocytes # (auto) 0.06 K/uL (0.00-0.02); Immature Granulocytes % (auto) 0.6 %; Lymphocytes # (auto) 1.33 K/uL (1.2-3.4); Lymphocytes % (auto) 13.8 %; Mean Corpuscular Hgb Conc 32.5 g/dL (32-36); Mean Corpuscular Volume 94.6 fL (80-100); Mean Platelet Volume 8.6 fL (7.4-10.4); Monocytes % (auto) 3.1 %; Neutrophils # (auto) 7.95 K/uL (1.4-6.5); Neutrophils % (auto) 82.2 %; Platelet Count 287 K/uL (130-400); RDW Coefficient of Variation 13.8 % (11.5-14.5); RDW Standard Deviation 47.7 fL (36.4-46.3); Red Blood Count 4.04 M/uL (4.2-5.4); White Blood Count 9.67 K/uL (4.8-10.8)
[2018-07-26 16:11] LABS: Partial Thromboplastin Ratio 1.1; Partial Thromboplastin Time 29.6 Seconds (21.0-31.0)
[2018-07-26 16:18] LABS: BUN Creatinine Ratio 22.1 (10-20); Calcium 8.9 mg/dl (8.5-10.1); Creatinine Clr Calc Pharmacy 25.3 ml/min; Est GFR (African American) 39.1; Est GFR (Non-African American) 33.7
--- NOTE | 2018-08-12 10:58 | History and Physical Report ---
DATE OF ADMISSION: 08/15/2018 CHIEF COMPLAINT: Right knee pain. HISTORY OF PRESENT ILLNESS: A 77-year-old female who has been a long-term patient of my partner Dr. Feliciano. She has a long history of right knee pain and discomfort dating back to 5 plus years ago. She has been through extensive conservative treatment including steroid shots and viscosupplementation, which have become less successful over time. She describes anterior pain but some global pain medial and lateral. The more she walks, the more it hurts. It is increased going up and down steps. The last injections really have not helped much at all. Pain has become more disabling. She can participate in activities that she would like due to pain. She would like to proceed with surgical treatment. Of note, the patient has had arthritis managed by Dr. Doe, her ink maker. She has been on prednisone as well as multiple different medicines which do not seem to be helping much anymore. PAST MEDICAL HISTORY: 1. Hypertension. 2. Elevated cholesterol. 3. Sleep apnea. 4. Hypothyroidism. 5. Gastroesophageal reflux disease. 6. History of Hodgkin's disease in 2000, in remission. 7. Chronic renal insufficiency followed by Dr. Medina with a creatinine of 1.50. PAST SURGICAL HISTORY: 1. Tonsillectomy. 2. Hysterectomy. 3. A and P repair. 4. Ureterolysis. 5. 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 ALLERGIES: None. CURRENT MEDICATIONS: 1. Hydroxychloroquine 200 mg a day. 2. Lisinopril once a day. 3. Levothyroxine 75 mcg a day. 4. Prednisone 2.5 mg a day. 5. Zetia 10 mg. 6. Cyclobenzaprine 10 mg. 7. Omeprazole 20 mg. 8. Atorvastatin 80 mg. 9. Calcium 400 mg twice a day. 10. Vitamin D3 2000 International Units daily. 11. Tramadol 1-2 tablets at bedtime for sleep. SOCIAL HISTORY: A 77-year-old female. She does not smoke. One drink per week. FAMILY HISTORY: Noncontributory. REVIEW OF SYSTEMS: Significant for Hodgkin's disease in remission. She does have chronic renal insufficiency, followed by Dr. Medina. No chest pain, no shortness of breath. No signs of DVT or PE. PHYSICAL EXAMINATION: GENERAL: Reveals a pleasant, small elderly female. Looks to be in pretty good health. HEENT: Benign. NECK: Supple. No lymphadenopathy. LUNGS: Clear to auscultation. HEART: Has a regular rate and rhythm. ABDOMEN: Soft, nontender, nondistended. EXTREMITIES: Grossly neurovascularly intact except as follows: Examination of the right leg reveals patient ambulates independently. Fairly mild limp. She does have a [id number] sized knee effusion. Range of motion 0-125. She got crepitance with knee motion. No instability. No pain with hip motion. X-RAYS: The x-rays of the right knee were reviewed. She has a moderate tibiofemoral arthritis with advanced patellofemoral disease on the right side. ASSESSMENT: A 77-year-old female with a 5-plus-year history of increased right knee pain and discomfort, unresponsive to conservative treatment. Most severe disease in the patellofemoral compartment, but some tibiofemoral disease as well. She would like to proceed with surgical treatment. PLAN: We are going to take her to the operating room and will do a right total knee replacement. The risks and benefits of this procedure were explained to the patient, including but not limited to, DVT, PE, , infection, neurological injury, vascular injury, bleeding problem, pain, limited range of motion, stiffness, failure to relieve symptoms, incomplete relief of symptoms, need for further surgery in the future, fracture, leg length inequality, nerve palsy, failure to relieve her symptoms. The patient understands and desires to proceed. Informed consent was obtained. I did tell her that total knee replacement for patellofemoral arthritis is less predictable as far as pain relief and she is aware of this and would like to proceed. We will have to hold any NSAIDs due to her chronic renal insufficiency. We will follow her creatinine in the hospital. She will hold her lisinopril the morning of surgery. She should not need stress dose prednisone based on her low dose that she takes preoperatively. She does take tramadol which will make pain control a little bit more difficult postoperatively. As far as discharge plan, she is hoping to go to [facility] or maybe home with [facility]. We will see how she does in the hospital.
[~2018-08-15 06:27] MED LIST changes: -ACET-1311 PO; +ACETAMINOPHEN 500 MG TAB PO SCH; -ATOR-26 PO; +BUPIVACAINE 0.5 % 5 MG/1 ML PF 10ML VIAL ONE; +BUPIVACAINE LIPOSOME/PF 266 MG, BUPIVACAINE/EPINEPHRINE 50 ML, SODIUM CHLORIDE 0.9% 30 ... INFIL SCH; -CALC-51 PO; +CEFAZOLIN 2000MG 2,000 MG/15 ML SYR IV SCH; -CHOL2000 PO; -CYCL10TA6 PO; -DIAZ-165 PO; -DICL1GEL12 TD; -EZET10TA63 PO; +FAMOTIDINE 20 MG TAB PO SCH; -FENTANYL CITRATE INJ 50 MCG/1 ML 2 ML VIAL ONE; +GABAPENTIN 300 MG PO SCH; -HYDR200T5 PO; -LEVO75TA5 PO; -LIDOCAINE HCL 2% 2 ML VIAL (20MG/ML) ONE; -LISI-729 PO; +LR 60ML/HR IV SCH; -MELO7.5T5 PO; +METOCLOPRAMIDE HCL 10 MG TABLET PO SCH; -MULTTAB58 PO; -OXYC-57 PO; -PRED-301 PO; -PRLSR20 PO; -PROPOFOL IV EMULSION 10 MG/ML 20 ML VIAL ONE; +ROPIVACAINE 0.5% 5 MG/ML 30 ML VIAL ONE; -SODIUM CHLORIDE 0.9% 500ML 500 ML IV ONE; -ULT50 PO
[2018-08-15] MEDS ORDERED: EPINEPHrine INJ 1 MG/ML AMP ONE ×2 (06:28→09:04)
[2018-08-15] MEDS ORDERED: TRANEXAMIC ACID 1,000 MG **IV Intra-op IV SCH (06:30)
--- NOTE | 2018-08-15 06:57 | History & Physical Bridge Note ---
Date of Service August 15, 2018 History & Physical Bridge Note I have examined the patient, reviewed the History & Physical and in the interval since the performance of the History & Physical I have noted the following changes of clinical significance: no changes noted
[2018-08-15] MEDS: LR 500ML BOLUS, THEN 15ML/HR IV SCH ×6 (07:00→19:21)
[2018-08-15] MEDS ORDERED: LABETALOL HCL IV 5 MG/ML 20ML IV PRN (08:12)
[2018-08-15] MEDS ORDERED: PHENYLEPHRINE 100MCG/ML 5ML SYR IV PRN (08:12)
[2018-08-15] MEDS ORDERED: ATROPINE SULFATE 0.1 MG/ML 10ML SYR IV PRN (08:12)
[2018-08-15] MEDS ORDERED: ePHEDrine sulfate 50 MG/ML AMP IV PRN (08:12)
[2018-08-15] MEDS ORDERED: MEPERIDINE HCL 25 MG/ML CARP IV PRN (08:12)
[2018-08-15] MEDS ORDERED: fentaNYL citrate 100 MCG/2 ML VIAL IV PRN (08:12)
[2018-08-15] MEDS ORDERED: ONDANSETRON INJ 2 MG/ML 2 ML VIAL IV PRN ×2 (08:12→12:26)
[2018-08-15] MEDS ORDERED: fentaNYL citrate 100 MCG/2 ML VIAL ONE (08:16)
[2018-08-15] MEDS ORDERED: MIDAZOLAM HCL 1 MG/ML 2ML VIAL ONE (08:16)
[2018-08-15] MEDS ORDERED: BACITRACIN INJ 50,000 UNIT VIAL ONE (09:04)
[2018-08-15] MEDS ORDERED: SODIUM CHLORIDE 0.9% PF 50 ML VIAL ONE (09:04)
[2018-08-15] MEDS ORDERED: BUPIVACAINE LIPOSOME 1.3% 266 MG/20 ML VIAL INFIL ONE (09:04)
[2018-08-15] MEDS ORDERED: BUPIVACAINE 0.25% 30 ML VIAL ONE (09:05)
[2018-08-15] MEDS ORDERED: ePHEDrine sulfate 50 MG/ML SYR ONE (09:59)
[2018-08-15] MEDS ORDERED: PROPOFOL IV EMULSION 10 MG/ML 20 ML VIAL IV ONE (09:59)
[2018-08-15] MEDS ORDERED: PHENYLEPHRINE HCL 10 MG/ML VIAL ONE (09:59)
[2018-08-15] MEDS ORDERED: LIDOCAINE HCL 2% 2 ML VIAL/AMP(20MG/ML) INFIL ONE (09:59)
[2018-08-15] MEDS ORDERED: PHENYLEPHRINE 100MCG/ML 5ML SYR ONE (09:59)
--- NOTE | 2018-08-15 11:00 | Post Operative Brief Note ---
Immediate Post Op Note v1 Date of Surgery August 15, 2018 Pre & Post Diagnosis Operation Date: 08/15/18 08:50 Pre-Op Diagnosis: Right Knee Degenerative Joint Disease Post-Op Diagnosis: Right Knee Degenerative Joint Disease Procedure Operation Date: 08/15/18 08:50 Actual Procedures p Right Total Knee Arthroplasty(Right) - Rudolph Rodriguez MD Surgeon Rudolph Rodriguez MD Tutor Coordinator Sin, PAC Estimated Blood Loss 50 Findings Consistent with Post-Op Diagnosis Fluids 1000 cc Specimens Right Knee Drains Velázquez Catheter Anesthesia Type Spinal MAC Complications none Disposition Accompanied Patient To Recovery: No Disposition: Recovery Room
--- NOTE | 2018-08-15 11:49 | XRay Report ---
RIGHT KNEE 2 VIEWS History: Right total knee arthroplasty. Degenerative arthritis. Postop. FINDINGS: The patient is status post a right total knee arthroplasty. The hardware is intact. No frac ture or dislocation. Skin levy are in place. IMPRESSION: Right total knee arthroplasty. No evidence for hardware complication. Electronically signed by: Guillermo Tolbert M.D. 08/15/2018 11:48 AM
--- NOTE | 2018-08-15 11:58 | Anesthesiology Progress Note ---
Date of Service August 15, 2018 Anesthesia Post Procedure Vital Signs Vital Signs: Temp Pulse Pulse Resp BP Pulse Ox 08/15/18 11:45 97 H 13 113/79 97 08/15/18 11:35 36.3 C L 97 H 15 137/79 98 08/15/18 11:25 101 H 17 136/78 99 08/15/18 11:15 99 H 17 125/85 100 08/15/18 11:06 36.8 C 101 H 23 125/76 100 08/15/18 07:43 37 C 95 H 20 120/81 96 Pain Intensity Right Knee: Pain Intensity: 1 Notes Mental Status: alert / awake / arousable Patient Amnestic to Procedure: Yes Nausea / Vomiting: adequately controlled Pain: adequately controlled Airway Patency, RR, SpO2: stable & adequate BP & HR: stable & adequate Hydration State: stable & adequate Neuraxial Anesthesia: was administered and sensory block is resolving Anesthetic Complications: no major complications apparent and Pt Satisfied with anesthetic care
[2018-08-15] MEDS ORDERED: BISACODYL 10 MG SUPP PR PRN (12:26)
[2018-08-15] MEDS ORDERED: MAGNESIUM HYDROXIDE SUSP 30 ML UDC PO PRN (12:26)
[2018-08-15] MEDS ORDERED: METOCLOPRAMIDE HCL INJ 5 MG/ML 2 ML VIAL IV PRN (12:26)
[2018-08-15] MEDS ORDERED: ALUMINUM/MAGNESIUM SUSP 30 ML UDC PO PRN (12:26)
[2018-08-15] MEDS ORDERED: GLUCOSE 40% GEL 15 GM TUBE PO PRN (12:26)
[2018-08-15] MEDS ORDERED: CARBOHYDRATES FOR HYPOGLYCEMIA PO PRN (12:26)
[2018-08-15] MEDS ORDERED: GLUCAGON FOR INJ 1 MG VIAL SQ PRN (12:26)
[2018-08-15] MEDS ORDERED: DEXTROSE 50% 50 ML SYRINGE IV PRN (12:26)
[2018-08-15] MEDS ORDERED: GLUCOSE 10 TABS/TUBE PO PRN (12:26)
[2018-08-15] MEDS ORDERED: PHARMACY GLYCEMIC MGMT CONSULT PRN (12:29)
[2018-08-15] MEDS: SODIUM CHLORIDE 0.9% 1000ML 1,000 ML IV SCH ×2 (13:00→21:50)
[2018-08-15] MEDS: HYDROmorphone INJ 0.5 MG/0.5 ML SYR IV PRN ×3 (13:05→22:18)
[2018-08-15] MEDS: ACETAMINOPHEN 500 MG TAB PO SCH ×2 (13:48→21:01)
--- NOTE | 2018-08-15 13:51 | Operative Report ---
DATE OF OPERATION: 08/15/2018 SURGEON: Rudolph Rodriguez MD CHIEF MEDICAL DIRECTOR: USMAN Mansfield PREOPERATIVE DIAGNOSIS: Right knee degenerative joint disease. POSTOPERATIVE DIAGNOSIS: Right knee degenerative joint disease. PROCEDURE PERFORMED: Right cemented posterior stabilized total knee arthroplasty. COMPLICATIONS: None. ESTIMATED BLOOD LOSS: 50 mL. FLUID REPLACEMENT: 1000 mL crystalloid fluid replacement. ANESTHESIA: Spinal with adductor canal block. DRAINS: None. SPECIMENS: Right knee sent for pathology. OPERATIVE INDICATIONS: The patient is a 77-year-old female who has had a long history of right knee pain and discomfort. She has been followed by my partner, Dr. Feliciano as well as a naval architect specialist locally. She has been through extensive conservative care which became less successful over time. X-ray shows advanced patellofemoral arthritis. She had some fairly mild to moderate tibiofemoral arthritis. She failed all conservative treatment and is having recurrent pain, swelling and large knee effusions. The patient elected to proceed with operative treatment. OPERATIVE FINDINGS: Operative findings revealed advanced right knee DJD with grade 4 bone on bone disease of the trochlea as well as the patella, particularly the lateral facet. She had mild tracking of the patella laterally with eburnation of the trochlea laterally. She had some fairly akql-br-dqqahfrc tibiofemoral disease. She had a large knee joint effusion without slight valgus alignment to her knee. TOURNIQUET TIME: Tourniquet time was 55 minutes at 300 mmHg. OPERATIVE IMPLANTS: Operative implants consisted of: 1. A Biomet Vanguard size 60 right posterior stabilized femoral component. 2. A Biomet size 63 tibial tray. 3. A 10 mm posterior stabilized polyethylene insert. 4. A 28 x 8 all poly patella. OPERATIVE PROCEDURE: The patient was taken to the operating room, identified and placed on the operative table in supine position. All contact areas were appropriately padded. IV antibiotics were provided by anesthesia team. A spinal anesthetic and adductor canal block had been provided in the holding area. Velázquez catheter was placed in sterile fashion. A right thigh tourniquet was then placed and the right lower extremity was then prepped and draped in usual sterile fashion. The right leg was elevated and exsanguinated with Esmarch and tourniquet was placed at 300 mmHg. An anterior approach of the right knee was then performed through a longitudinal incision centered over the patella. Sharp dissection was carried through subcutaneous tissue down to the level of the extensor mechanism. A medial parapatellar arthrotomy incision was made. Some subperiosteal dissection was carried out medially. The fat pad resected from beneath the patellar tendon. The lateral patellofemoral ligament was released. The patella was everted and knee was flexed. The osteophytes were taken off the distal femur. The ACL and PCL were then released from the distal femur. The tibia subluxated anteriorly. The external tibial alignment jig was then placed in the anterior face of the tibia and adjusted 14 mm medially. Proximal tibial cut was made to remove about 2-3 mm of bone from the most deficient aspect of the medial tibial plateau. The tibia was sized to a size 63. Attention was then drawn to the femur. The distal femur was entered with a sharp drill. Intramedullary canal was suctioned. A right 5-degree valgus cutting guide was placed. Distal femoral cutting block was pinned in place. Distal femoral cut was made to take an additional 3 mm of bone off the distal femur. The knee was brought out into full extension. I did release some of the IT band and posterolateral capsule in order to equalize the extension gap. Great care was taken to protect the peroneal nerve at all times. The knee was then flexed. The femur was then sized to a size 60. The AP cutting block was pinned parallel to the epicondylar axis, which was 5 degrees of external rotation. The anterior cut, anterior chamfer, posterior cut, posterior chamfer cuts were made. Box cutting guide was placed and adjusted slightly lateral and the box cut was made. The knee was flexed. The remnants of the medial and lateral menisci were excised. The osteophytes were taken off the posterior aspect of the femur. I did release the popliteus in order to equalize the flexion gap. A right size 60 posterior stabilized femoral component was then placed followed by a size 63 tibial tray. The tibial tray was pinned in maximum external rotation. The drill and stem punch were used to create defect in proximal tibia for the tibial tray. I then trialed the knee and 10 mm insert fit most appropriately. Attention was then drawn to patella. The patella was cleaned of all soft tissues. Patella thickness was measured 23 mm medially and was cut down to 14. It was sized to a size 28 patella. Lug holes were drilled for the 28 patella. Lateral osteophyte was removed. The knee was taken through range of motion and patella tracked nicely with no thumbs test. I did downsize the patella slightly in order to maximize tracking. Attention was then drawn toward placement of permanent components. All trial components were removed. Bone plug was placed in the distal femur to limit blood loss. A double batch of Palacos G cement was mixed. A Biomet Vanguard 60 size right posterior stabilized femoral component, size 63 tibial tray, 10 mm posterior stabilized polyethylene insert, 28 x 8 all poly patella then cemented in place. Knee was brought down into full extension until the cement hardened. A final cement check was then performed. Pericapsular tissues were injected with a total of 100 mL of a combination of 20 mL of Exparel, 30 mL of normal saline, 50 mL of 0.25% Marcaine with epinephrine. The patient did receive 1 gram of tranexamic acid. The tourniquet was then let down for a tourniquet time of 55 minutes. Hemostasis was assured with use of electrocautery. The extensor mechanism was then closed with combination of #1 PDS suture and #1 Vicryl suture in a [id number] fashion. Extensor mechanism was checked and found to be intact. The subcutaneous tissues were then closed with #2 Dexon suture in a buried interrupted fashion. Skin was closed with skin levy. Leg was then cleaned, dried and a sterile dressing of Xeroform, 4 x 4, sterile cast padding and Francis bandage were applied. The patient was transferred to the recovery room in stable condition. The patient tolerated the procedure well with no complication. All needle and sponge counts were correct at the end of the operation. I attest to the content of the Intraoperative Record and any orders documented therein. Any exception s are noted below.
[2018-08-15] MEDS: MULTIVITAMIN TAB PO SCH (15:36)
[2018-08-15] MEDS: TRAMADOL HCL 50 MG TABLET PO PRN ×3 (15:50→21:48)
[2018-08-15] MEDS ORDERED: TRANEXAMIC ACID 1,000 MG in 0.9 % SODIUM CHLORIDE 100 ML IV SCH (18:00)
[2018-08-15] MEDS: FERROUS GLUCONATE 324 MG TAB PO SCH (18:10)
[2018-08-15] MEDS: CEFAZOLIN 1000MG 1,000 MG/7.5 ML SYR IV SCH (18:11)
[2018-08-15] MEDS: INSULIN ASPART 100 UNITS/ML 3 ML PEN SC SCH ×2 (18:19→20:58)
[2018-08-15] MEDS: SENNA 8.6 MG TAB PO SCH (20:52)
[2018-08-15] MEDS: DOCUSATE SODIUM 100 MG CAP PO SCH (20:53)
[2018-08-15] MEDS: ASPIRIN 81 MG ECTAB PO SCH (20:54)
[2018-08-15] MEDS: CYCLOBENZAPRINE HCL 10 MG TAB PO SCH (20:54)
[2018-08-15] MEDS: MELOXICAM 7.5 MG TAB PO SCH (20:55)
[2018-08-15] MEDS: ATORVASTATIN 40 MG TAB PO SCH (20:55)
[2018-08-15] MEDS: PANTOprazole 40 MG TAB PO SCH (20:56)
[2018-08-15] MEDS ORDERED: LISINOPRIL 10 MG TAB PO STA (22:35)
[2018-08-16] MEDS: CEFAZOLIN 1000MG 1,000 MG/7.5 ML SYR IV SCH (01:18)
[2018-08-16] MEDS: HYDROmorphone INJ 0.5 MG/0.5 ML SYR IV PRN ×4 (02:23→16:32)
[2018-08-16] MEDS: LEVOTHYROXINE SODIUM 75 MCG TABLET PO SCH (05:18)
[2018-08-16] MEDS: ACETAMINOPHEN 500 MG TAB PO SCH ×3 (05:18→21:39)
[2018-08-16 06:37] LABS: Hematocrit (blood only) 35.7 % (37-47); Hemoglobin 11.5 g/dL (12.0-16.0); Mean Corpuscular Hgb Conc 32.2 g/dL (32-36); Mean Corpuscular Volume 93.7 fL (80-100); Mean Platelet Volume 8.6 fL (7.4-10.4); Platelet Count 225 K/uL (130-400); RDW Coefficient of Variation 13.9 % (11.5-14.5); RDW Standard Deviation 47.6 fL (36.4-46.3); Red Blood Count 3.81 M/uL (4.2-5.4); White Blood Count 11.47 K/uL (4.8-10.8)
[2018-08-16 06:50] LABS: Estimated Average Glucose 128 mg/dl
[2018-08-16 07:04] LABS: BUN Creatinine Ratio 19.3 (10-20); Creatinine Clr Calc Pharmacy 26.1 ml/min; Est GFR (African American) 40.7; Est GFR (Non-African American) 35.1; Potassium 3.8 mmol/L (3.5-5.1)
[2018-08-16] MEDS: TRAMADOL HCL 50 MG TABLET PO PRN (08:44)
[2018-08-16] MEDS: FERROUS GLUCONATE 324 MG TAB PO SCH ×2 (08:45→17:55)
[2018-08-16] MEDS: DOCUSATE SODIUM 100 MG CAP PO SCH ×2 (08:46→20:21)
[2018-08-16] MEDS: ASPIRIN 81 MG ECTAB PO SCH ×2 (08:46→20:17)
[2018-08-16] MEDS: MELOXICAM 7.5 MG TAB PO SCH ×2 (08:47→20:18)
[2018-08-16] MEDS: CALCIUM CARBONATE 1250MG TAB PO SCH (08:48)
[2018-08-16] MEDS: HYDROXYCHLOROQUINE SULFATE 200 MG TAB PO SCH (08:49)
[2018-08-16] MEDS: CHOLECALCIFEROL 1,000 UNITS TAB PO SCH (08:49)
[2018-08-16] MEDS: PANTOprazole 40 MG TAB PO SCH ×2 (08:49→20:19)
[2018-08-16] MEDS: EZETIMIBE 10 MG TABLET PO SCH (08:50)
[2018-08-16] MEDS: predniSONE 5 MG TAB PO SCH (08:50)
[2018-08-16] MEDS: LISINOPRIL 10 MG TAB PO SCH (08:50)
[2018-08-16] MEDS ORDERED: MULTIVITAMIN TAB PO SCH (09:00)
[2018-08-16] MEDS ORDERED: PANTOprazole 40 MG TAB PO SCH (09:00)
[2018-08-16] MEDS: INSULIN ASPART 100 UNITS/ML 3 ML PEN SC SCH ×4 (09:19→21:38)
--- NOTE | 2018-08-16 10:59 | Anesthesiology Progress Note ---
Date of Service August 16, 2018 Anesthesia Post Procedure Vital Signs Vital Signs: Temp Pulse Pulse Resp BP BP Pulse Ox 08/16/18 08:05 37.4 C 90 20 176/94 H 95 08/16/18 03:20 36.8 C 86 16 150/75 H 92 08/15/18 23:25 36.9 C 95 H 16 163/82 H 93 08/15/18 22:48 173/91 H 08/15/18 22:05 188/103 H 08/15/18 19:23 36.8 C 86 18 156/96 H 92 08/15/18 15:02 36.4 C L 92 H 16 163/96 H 100 08/15/18 14:00 94 H 18 129/78 97 08/15/18 12:56 106 H 16 156/88 H 97 08/15/18 12:34 36.6 C 93 H 16 124/73 98 08/15/18 12:00 36.7 C 99 H 16 128/78 98 08/15/18 11:45 97 H 13 113/79 97 08/15/18 11:35 36.3 C L 97 H 15 137/79 98 08/15/18 11:25 101 H 17 136/78 99 08/15/18 11:15 99 H 17 125/85 100 08/15/18 11:06 36.8 C 101 H 23 125/76 100 Pain Intensity Right Knee: Pain Intensity: 7 Notes Mental Status: alert / awake / arousable and participated in evaluation Patient Amnestic to Procedure: Yes Nausea / Vomiting: adequately controlled Pain: adequately controlled Airway Patency, RR, SpO2: stable & adequate BP & HR: stable & adequate Hydration State: stable & adequate Neuraxial Anesthesia: was administered and sensory block resolved Anesthetic Complications: no major complications apparent and Pt Satisfied with anesthetic care
[2018-08-16] MEDS: MULTIVITAMIN TAB PO SCH (15:43)
--- NOTE | 2018-08-16 16:12 | Progress Note ---
DATE: 08/16/2018 SUBJECTIVE: A 77-year-old female postop day 1 from right knee replacement. Quite a bit more painful today. She chronically takes tramadol and does not feel like this is working adequately for her. No chest pain or shortness of breath. Not feeling dizzy or lightheaded. OBJECTIVE: VITAL SIGNS: Temperature 37.5. Vital signs stable. She has been hypertensive. PHYSICAL EXAMINATION: Reveals a pleasant, middle-aged female. She is lying in bed and talking to her daughter. She looks reasonably comfortable. EXTREMITIES: Examination of the right leg reveals the leg to be well aligned. She can dorsiflex and plantarflex her foot appropriately. She is neurologically intact. LABORATORY DATA: Hemoglobin is 11.5, hematocrit 35.7. Electrolytes are stable. Creatinine stable at 1.45. ASSESSMENT: A 77-year-old female postop day 1 from a right knee replacement, doing reasonably well. She is on chronic tramadol and would like better pain control. PLAN: 1. DVT prophylaxis including thigh-high TEDs, SCDs, and aspirin twice a day. 2. PT and OT. Weight bear as tolerated. Right total knee protocol. 3. Pain control. We are going to take her off the tramadol and put her on some oxycodone. She can continue to use Tylenol. Will use her NSAID that she used preoperative but have to be careful due to renal function. 4. Disposition: She is hoping to be discharged to rehab. Social service is working on that now.
[2018-08-16] MEDS: ATORVASTATIN 40 MG TAB PO SCH (20:20)
[2018-08-16] MEDS: SENNA 8.6 MG TAB PO SCH (20:20)
[2018-08-16] MEDS: CYCLOBENZAPRINE HCL 10 MG TAB PO SCH (20:21)
[2018-08-17] MEDS: OXYCODONE HCL IR 5 MG TAB (IMMEDIATE RELEASE) PO PRN ×5 (00:03→20:57)
[2018-08-17] MEDS: LEVOTHYROXINE SODIUM 75 MCG TABLET PO SCH (05:33)
[2018-08-17] MEDS: ACETAMINOPHEN 500 MG TAB PO SCH ×3 (05:33→20:59)
--- NOTE | 2018-08-17 07:48 | Progress Note ---
DATE: 08/17/2018 SUBJECTIVE: A 77-year-old white female postop day 2 from right knee replacement. Doing little bit better on the oxycodone. She certainly slept better last night. No chest pain or shortness of breath. Not feeling dizzy or lightheaded. OBJECTIVE: VITAL SIGNS: Temperature 37.5. Vital signs stable. GENERAL: Physical examination shows a pleasant elderly female. She is lying in bed, looks reasonably comfortable. EXTREMITIES: Examination of the right leg reveals the leg to be well aligned. Dressing is clean, dry and intact. Calf is soft and supple. She is neurologically intact. ASSESSMENT: A 77-year-old white female postop day 2 from right knee replacement, doing reasonably well. Pain seems to be a bit better on the oxycodone. PLAN: 1. DVT prophylaxis including thigh-high TEDs, SCDs, and aspirin twice a day. 2. PT/OT. Weight bear as tolerated. Right total knee protocol. 3. Pain control. Doing reasonably well on current pain regimen. Seems to be doing better on the oxycodone. If need, we may need to adjust to Dilaudid depending on her pain control. 4. Disposition: She is hoping to be discharged to rehab. I think we have a bed available today and will see how things go as far as her recovery and pain control.
[2018-08-17] MEDS: CALCIUM CARBONATE 1250MG TAB PO SCH (09:00)
[2018-08-17] MEDS: DOCUSATE SODIUM 100 MG CAP PO SCH ×2 (09:00→20:00)
[2018-08-17] MEDS: predniSONE 5 MG TAB PO SCH (09:00)
[2018-08-17] MEDS: PANTOprazole 40 MG TAB PO SCH ×2 (09:00→20:01)
[2018-08-17] MEDS: EZETIMIBE 10 MG TABLET PO SCH (09:01)
[2018-08-17] MEDS: CHOLECALCIFEROL 1,000 UNITS TAB PO SCH (09:01)
[2018-08-17] MEDS: HYDROXYCHLOROQUINE SULFATE 200 MG TAB PO SCH (09:02)
[2018-08-17] MEDS: LISINOPRIL 10 MG TAB PO SCH (09:02)
[2018-08-17] MEDS: MELOXICAM 7.5 MG TAB PO SCH ×2 (09:03→20:03)
[2018-08-17] MEDS: FERROUS GLUCONATE 324 MG TAB PO SCH ×2 (09:03→16:25)
[2018-08-17] MEDS: ASPIRIN 81 MG ECTAB PO SCH ×2 (09:03→20:00)
[2018-08-17] MEDS: INSULIN ASPART 100 UNITS/ML 3 ML PEN SC SCH ×4 (09:04→20:59)
[2018-08-17] MEDS: MULTIVITAMIN TAB PO SCH (15:08)
[2018-08-17] MEDS: ATORVASTATIN 40 MG TAB PO SCH (20:02)
[2018-08-17] MEDS: CYCLOBENZAPRINE HCL 10 MG TAB PO SCH (20:03)
[2018-08-17] MEDS: SENNA 8.6 MG TAB PO SCH (20:04)
[2018-08-18] MEDS: LEVOTHYROXINE SODIUM 75 MCG TABLET PO SCH (05:33)
[2018-08-18] MEDS: ACETAMINOPHEN 500 MG TAB PO SCH ×3 (05:34→21:42)
[2018-08-18] MEDS: OXYCODONE HCL IR 5 MG TAB (IMMEDIATE RELEASE) PO PRN ×4 (07:25→21:47)
--- NOTE | 2018-08-18 07:31 | Progress Note ---
DATE: 08/18/2018 SUBJECTIVE: A 77-year-old white female postop day 3 from right knee replacement. Continues to get better pain pacheco. She was planning on leaving yesterday but, bed not available at [facility]. No new complaints. Pain is improved a bit. No chest pain or shortness of breath. OBJECTIVE: VITAL SIGNS: Temperature is 36.9. Vital signs stable. GENERAL: Physical examination shows a pleasant, middle-aged female. She is lying in bed, looks reasonably comfortable. EXTREMITIES: Examination of the right leg reveals the leg to be well aligned. Dressing is clean, dry and intact. Swelling is pretty mild. Calf is soft and supple. She is neurologically intact. ASSESSMENT: A 77-year-old white female postop day 3 from right knee replacement, doing pretty well. Pain is improving. PLAN: 1. DVT prophylaxis including thigh-high TEDs, SCDs, and aspirin twice daily. 2. PT/OT - WBAT. Right TKR Protocol 3. Tranfer to [facility] or SNF when bed available. DICTATION ENDS HERE MTDD
[2018-08-18] MEDS: FERROUS GLUCONATE 324 MG TAB PO SCH ×2 (09:23→18:49)
[2018-08-18] MEDS: EZETIMIBE 10 MG TABLET PO SCH (09:24)
[2018-08-18] MEDS: DOCUSATE SODIUM 100 MG CAP PO SCH ×2 (09:24→21:42)
[2018-08-18] MEDS: MELOXICAM 7.5 MG TAB PO SCH ×2 (09:24→21:42)
[2018-08-18] MEDS: PANTOprazole 40 MG TAB PO SCH ×2 (09:25→21:42)
[2018-08-18] MEDS: predniSONE 5 MG TAB PO SCH (09:25)
[2018-08-18] MEDS: HYDROXYCHLOROQUINE SULFATE 200 MG TAB PO SCH (09:26)
[2018-08-18] MEDS: CALCIUM CARBONATE 1250MG TAB PO SCH (09:26)
[2018-08-18] MEDS: CHOLECALCIFEROL 1,000 UNITS TAB PO SCH (09:26)
[2018-08-18] MEDS: ASPIRIN 81 MG ECTAB PO SCH ×2 (09:27→21:42)
[2018-08-18] MEDS: LISINOPRIL 10 MG TAB PO SCH (09:27)
[2018-08-18] MEDS: INSULIN ASPART 100 UNITS/ML 3 ML PEN SC SCH ×4 (09:28→20:51)
[2018-08-18] MEDS: MULTIVITAMIN TAB PO SCH (16:58)
[2018-08-18] MEDS: CYCLOBENZAPRINE HCL 10 MG TAB PO SCH (21:42)
[2018-08-18] MEDS: ATORVASTATIN 40 MG TAB PO SCH (21:42)
[2018-08-18] MEDS: SENNA 8.6 MG TAB PO SCH (21:44)
[2018-08-19] MEDS: OXYCODONE HCL IR 5 MG TAB (IMMEDIATE RELEASE) PO PRN ×2 (02:55→09:12)
[2018-08-19] MEDS: ACETAMINOPHEN 500 MG TAB PO SCH (06:13)
[2018-08-19] MEDS: LEVOTHYROXINE SODIUM 75 MCG TABLET PO SCH (06:13)
--- NOTE | 2018-08-19 08:48 | Progress Note ---
DATE: 08/19/2018 SUBJECTIVE: A 77-year-old white female postop day 4 from a right knee replacement. She is doing pretty well. Pain is getting a little bit better daily. Just waiting for placement. No chest pain or shortness of breath. She has been frustrated by the placement issue. OBJECTIVE: VITAL SIGNS: Temperature 36.8. Vital signs stable. GENERAL: Physical examination shows a pleasant, middle-aged female. She is lying in bed, looks pretty comfortable. EXTREMITIES: Examination of the right leg reveals the leg to be well aligned. Dressing is clean, dry and intact. No drainage. Calf is soft and supple. ASSESSMENT: A 77-year-old white female postop day 4 from right total knee replacement, doing reasonably well. Pain seems to be improving. Just waiting for placement. PLAN: 1. DVT prophylaxis including thigh-high TEDs, SCDs, and aspirin twice a day. 2. PT/OT. Weight bear as tolerated. Right total knee protocol. 3. Pain control. Doing reasonably well with current pain regimen. 4. Disposition: Plan to discharge to [facility]. Waiting for bed availability. If not found, she is willing to go to a senior care facility as a second resort. BARTOLOME
[2018-08-19] MEDS: DOCUSATE SODIUM 100 MG CAP PO SCH (09:13)
[2018-08-19] MEDS: FERROUS GLUCONATE 324 MG TAB PO SCH (09:13)
[2018-08-19] MEDS: CHOLECALCIFEROL 1,000 UNITS TAB PO SCH (09:13)
[2018-08-19] MEDS: EZETIMIBE 10 MG TABLET PO SCH (09:13)
[2018-08-19] MEDS: PANTOprazole 40 MG TAB PO SCH (09:14)
[2018-08-19] MEDS: predniSONE 5 MG TAB PO SCH (09:14)
[2018-08-19] MEDS: ASPIRIN 81 MG ECTAB PO SCH (09:15)
[2018-08-19] MEDS: MELOXICAM 7.5 MG TAB PO SCH (09:15)
[2018-08-19] MEDS: CALCIUM CARBONATE 1250MG TAB PO SCH (09:15)
[2018-08-19] MEDS: LISINOPRIL 10 MG TAB PO SCH (09:16)
[2018-08-19] MEDS: HYDROXYCHLOROQUINE SULFATE 200 MG TAB PO SCH (09:16)
[2018-08-19] MEDS: INSULIN ASPART 100 UNITS/ML 3 ML PEN SC SCH (09:18)
--- NOTE | 2018-08-22 15:14 | Discharge Summary ---
ADMITTING PHYSICIAN AND SURGEON: Dr. Rodriguez. ADMITTING DIAGNOSIS: Right knee degenerative joint disease. SURGERY PERFORMED: Right total knee arthroplasty. SECONDARY DIAGNOSES: Hypertension, elevated cholesterol, sleep apnea, hypothyroidism, gastroesophageal reflux disease, history of Hodgkin's lymphoma, chronic renal insufficiency. CONSULTS: None obtained. HISTORY AND PHYSICAL EXAMINATION: Well documented in the patient's chart. HOSPITAL COURSE: The patient was admitted a 08/15/2018 and underwent total knee arthroplasty, tolerated the procedure well. There were no complications. She was transferred to the PACU postoperatively and later to the orthopedic floor for further care. She was given Ancef for antibiotic prophylaxis, MAYANK stockings, SCDs and aspirin for DVT prophylaxis. Hemoglobin, hematocrit and vital signs were monitored during hospital stay and remained stable. She developed some mild postoperative anemia, did not require any blood transfusions. There were no complications. On postoperative day 4, she was tolerating a diabetic diet. Pain was controlled with oral pain medicine. She was participating in physical therapy. On postop day 4, she was transferred to rehab facility. She was given printed discharge instructions including new prescriptions for extra strength Tylenol, aspirin, iron supplement and oxycodone. Continue her home medications with the exception of her home dose of Tylenol, which was changed. Discontinue Percocet and tramadol. Continue physical therapy, weightbearing as tolerated, MAYANK stockings. Follow up approximately 2 weeks postoperatively or sooner if any problems or concerns.
== END 2018-08-19 11:55 | DRG 470 ==
LOC: ASU 06:27 → 3E 11:07

== ENCOUNTER 2020-03-27 09:54 | Inpatient (IN) ==
[2020-03-27] MEDS ORDERED: SODIUM CHLORIDE 0.9% 1000ML 1,000 ML IV ONE (10:28)
[2020-03-27] MEDS ORDERED: METOCLOPRAMIDE HCL INJ 5 MG/ML 2 ML VIAL IV STA (10:29)
[2020-03-27 11:09] LABS: Basophils # (auto) 0.01 K/uL (0-0.2); Basophils % (auto) 0.1 %; Eosinophils % (auto) 1.1 %; Hematocrit (blood only) 34.3 % (37-47); Hemoglobin 12.2 g/dL (12.0-16.0); Immature Granulocytes % (auto) 1.1 %; Lymphocytes # (auto) 1.87 K/uL (1.2-3.4); Lymphocytes % (auto) 21.1 %; Mean Corpuscular Hgb Conc 35.6 g/dL (32-36); Mean Corpuscular Volume 87.3 fL (80-100); Mean Platelet Volume 7.8 fL (7.4-10.4); Monocytes # (auto) 1.19 K/uL (0.11-0.59); Monocytes % (auto) 13.4 %; Neutrophils # (auto) 5.61 K/uL (1.4-6.5); Neutrophils % (auto) 63.2 %; Platelet Count 251 K/uL (130-400); RDW Standard Deviation 42.2 fL (36.4-46.3); Red Blood Count 3.93 M/uL (4.2-5.4); White Blood Count 8.88 K/uL (4.8-10.8)
[2020-03-27 11:28] LABS: Alanine Aminotransferase 22 U/L (12-78); Albumin Level 3.1 gm/dl (3.4-5.0); Aspartate Aminotransferase 28 U/L (15-37); BUN Creatinine Ratio 16.9 (10-20); Blood Urea Nitrogen 21 mg/dl (7-18); Calcium 9.3 mg/dl (8.5-10.1); Carbon Dioxide 27 mmol/L (21-32); Chloride 85 mmol/L (98-107); Est GFR (African American) 49.5; Est GFR (Non-African American) 42.7; Glucose 83 mg/dl (70-99); Lipase 98 U/L (73-393); Potassium 3.9 mmol/L (3.5-5.1); Sodium 121 mmol/L (136-145)
[2020-03-27 11:30] LABS: Albumin Globulin Ratio 0.9 (0.9-2); Alkaline Phosphatase 67 U/L (45-117); Bilirubin,Total 0.5 mg/dl (0.2-1); Creatine Kinase 198 U/L (26-192); Globulin 3.5 gm/dl (2.5-4.0); Total Protein 6.6 gm/dl (6.4-8.2)
[2020-03-27] MEDS ORDERED: ROPINIROLE HCL 0.25 MG TABLET PO STA (11:40)
[2020-03-27] MEDS ORDERED: BENZTROPINE MESYLATE 1 MG/ML 2 ML AMP IV STA (11:40)
[2020-03-27] MEDS ORDERED: ONDANSETRON INJ 2 MG/ML 2 ML VIAL IV STA (11:41)
[2020-03-27 12:30] LABS: Appearance Urine Clear (Clear); Bilirubin Urine Negative (Negative); Blood Urine Negative (Negative); Color Urine Yellow; Glucose Urine UA Negative (Negative); Ketones Urine Negative (Negative); Leukocyte Esterase Urine Negative (Negative); Nitrite Urine Negative (Negative); Protein Urine Negative (Negative); Urobilinogen Urine Negative (Negative); pH Urine 6.5 (4.5-7.5)
[2020-03-27] MEDS ORDERED: HYDROCORTISONE SOD SUCCINATE 100 MG/2 ML VIAL IV STA (12:46)
[2020-03-27] MEDS ORDERED: LORazepam 0.5 MG/1 ML VIAL IV STA (12:53)
[2020-03-27] MEDS ORDERED: SODIUM CHLORIDE 0.9% 1000ML 500 ML IV ONE (13:35)
[2020-03-27] MEDS ORDERED: LORazepam 1 MG/2 ML VIAL IV STA ×2 (14:04→15:31)
[2020-03-27] MEDS ORDERED: levETIRAcetam 1,000 MG in 0.9 % SODIUM CHLORIDE 100 ML IV STA (14:07)
--- NOTE | 2020-03-27 14:46 | Emergency Department Note ---
History of Present Illness General Chief complaint: Vomiting Stated complaint: VOMITING, WEAK Time Seen by Provider: 03/27/20 10:23 Source: patient, family, RN notes reviewed and old records reviewed Mode of arrival: ambulatory Limitations: no limitations History of Present Illness Provider complaint: restless legs, vomiting Onset (ago): day(s) 1 Location: lower extremity Radiation: non-radiation Severity: moderate Pain Consistency: + intermittent Maximum Pain Intensity: 3 Current Pain Intensity: 3 Exacerbated By: + eating Associated symptoms: no chest pain, no fever/chills and no nausea/vomiting Treatments prior to arrival: none This is a 79-year-old female who recently had shoulder surgery and was placed on oxycodone who presents the emergency department complaining of nausea and vomiting. The patient has a history of inflammatory arthritis for which she takes prednisone. She also has a history of restless legs syndrome. Her family members concerned because her restless leg syndrome appears wildly out of control last evening. She takes Requip for this. Home Medications Home Medications Medication Instructions Recorded Confirmed Type cholecalciferol (vitamin D3) 2,000 unit PO QAM 05/05/18 03/27/20 History [Vitamin D3] multivitamin 1 tab PO QDD 05/05/18 03/27/20 History ezetimibe 10 mg tablet 10 mg PO QAM #90 tab 05/04/19 03/27/20 Rx calcium carbonate 600 mg calcium 600 mg PO BID tab 06/19/19 03/27/20 History (1,500 mg) tablet oxycodone-acetaminophen 5 mg-325 1 tab PO Q6H PRN #90 tab 06/21/19 03/27/20 Rx mg tablet ropinirole 0.25 mg tablet 0.25 mg PO HS #90 tab 07/03/19 03/27/20 Rx atorvastatin 80 mg tablet 80 mg PO HS #90 tab 07/16/19 03/27/20 Rx cyclobenzaprine 10 mg tablet 10 mg PO HS PRN #90 tab 07/16/19 03/27/20 Rx omeprazole 20 mg capsule,delayed 20 mg PO BID #180 cap 07/16/19 03/27/20 Rx release prednisone 5 mg tablet 7.5 mg PO DAILY #60 tab 08/15/19 03/27/20 Rx hydrochlorothiazide 25 mg tablet 25 mg PO DAILY #90 tab 09/27/19 03/27/20 Rx levothyroxine 75 mcg tablet 75 mcg PO QAM #90 tab 10/19/19 03/27/20 Rx ropinirole 2 mg tablet,extended 2 mg PO DAILY #90 tab 12/25/19 03/27/20 Rx release 24 hr diclofenac sodium 1 % topical gel 2 gm TOPICAL QID #100 gm 01/02/20 03/27/20 Rx tramadol 50 mg tablet 50 mg PO Q6H #100 tab 01/11/20 03/27/20 Rx hydroxychloroquine 200 mg tablet 200 mg PO BID #180 tab 01/31/20 03/27/20 Rx acetaminophen 1,000 mg PO Q6H PRN 03/06/20 03/27/20 History lisinopril 0 mg PO DAILY 03/27/20 03/27/20 History Allergies Allergy/AdvReac Type Severity Reaction Status Date / Time No Known Drug Allergies Allergy Verified 03/27/20 11:18 Past Med/Surg History Medical History Acid reflux Chronic kidney disease 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 Dysuria Hiatal hernia History of Hodgkin's lymphoma S/P RADIATION/CHEMO (2000) History of pelvic fracture Hyperlipidemia Hypertension Hypothyroidism Mixed stress and urge urinary incontinence Restless leg syndrome Rheumatoid arthritis ON PLAQUENIL AND CHRONIC PREDNISONE 7.5MG DAILY Sciatica Scoliosis Surgical History H/O foot surgery 2ND RT TOE REMOVED History of bilateral cataract extraction RIGHT CATARACT EXTRACTION WITH IOL= 04/05/18= MAC SEDATION AT [facility] History of colonoscopy History of gynecologic surgery ANTERIOR AND POSTERIOR REPAIR - colporrhaphy (for pelvic relaxation) History of removal of cyst HEAD (BENIGN) History of tonsillectomy History of tooth extraction History of total knee replacement RT History of urologic surgery URETEROLYSIS- 04/1995 [facility] [place]P vaginal hysterectomy Family History Mother Cardiac disorder Family history of lung cancer Brother Diabetes Family history of lung cancer Family history of diabetes mellitus Daughter Breast cancer Father Cardiac disorder Grandmother Diabetes Aunt Ovarian cancer paternal aunt Grandmother (Paternal) Family history of diabetes mellitus Denies family history of Colon cancer Colorectal cancer Social History Smoking Status: Unknown if ever smoked Cigarettes Per Day: QUIT + 30 YEARS AGO; Second Hand Exposure: No; Preferred Language: Japanese Communication Ability: Unable Communication Ability Comment: Non-verbal, confused at this time. Unable to answer any questions Visual Impairment: No Limitations Machine Maintenance Repairer Required: No Beliefs That Will Affect Care: None marital status: Current Living Situation: Family Current Living Situation Comment: unknown, accompanied to ED by daughters current occupational status: retired Feels Safe at Home: Yes Sunscreen Use: Yes (occasionally) Review of Systems A total of 10 systems reviewed and were otherwise negative Physical Exam Vital Signs Vital Signs - 24 hr 03/27/20 10:12 03/27/20 12:00 03/27/20 12:11 Temperature 36.6 C Temperature Source Oral Pulse Rate 80 Pulse Rate [Finger] 88 90 Pulse Rhythm Regular Pulse Rhythm [Finger] Regular Regular Pulse Strength Normal Pulse Strength [Finger] Normal Normal Respiratory Rate 16 18 18 Respiratory Effort / Characteristics Non-Labored Non-Labored Non-Labored Spontaneous Respiratory Depth Normal Normal Normal Respiratory Pattern Regular Regular Regular Blood Pressure 135/69 Blood Pressure [Left Arm] 166/118 H 166/118 H Blood Pressure Mean 91 Blood Pressure Mean [Left Arm] 134 134 Blood Pressure Position Sitting Blood Pressure Position [Left Arm] Lying Pulse Oximetry 98 95 97 Oxygen Delivery Method Room Air Room Air Room Air Sepsis Recent Fever Within 48 Hours No Sepsis New/Unexplained Change in Mental Status N/A Sepsis Action Taken by Nursing No Action Required 03/27/20 13:55 Temperature Temperature Source Pulse Rate Pulse Rate [Finger] 142 H Pulse Rhythm Pulse Rhythm [Finger] Pulse Strength Pulse Strength [Finger] Respiratory Rate 21 Respiratory Effort / Characteristics Respiratory Depth Respiratory Pattern Blood Pressure Blood Pressure [Left Arm] 179/157 H Blood Pressure Mean Blood Pressure Mean [Left Arm] 164 Blood Pressure Position Blood Pressure Position [Left Arm] Pulse Oximetry 94 Oxygen Delivery Method Room Air Sepsis Recent Fever Within 48 Hours Sepsis New/Unexplained Change in Mental Status Sepsis Action Taken by Nursing VITAL SIGNS - Vital signs and nursing notes were reviewed. GENERAL - 79-year-old female appearing stated age who is in no acute distress. Communicates well with provider and answers questions appropriately. SKIN - Without rashes. HEAD - NC/AT. EYES - PERRL with EOMI bilaterally. Sclera anicteric. Palpebral conjunctiva pink and moist with no injection noted. EARS - No deformities of external structures noted on gross examination bilaterally. No pain elicited with palpation of the tragus bilaterally. External auditory canals without discharge or otorrhea. Tympanic membranes pearly melton without retraction or bulging. No fluid or purulent material visualized behind the TM. Handle of malleus, umbo, cone of light, pars tensa/flaccid all easily visualized. NOSE - Midline and without cyanosis. No epistaxis or purulent drainage noted. Septum midline without deviation or septal hematoma noted. MOUTH/OROPHARYNX - Without perioral cyanosis. Buccal mucosa pink and moist and without leukoplakia. Tongue midline with equal elevation of palate bilaterally. No tonsillar hypertrophy, erythema, or exudates noted. dentition noted. NECK - Neck with FROM. Supple to palpation. lymphadenopathy noted. No nuchal rigidity. LUNGS - Chest wall symmetric without accessory muscle use, intercostals retractions, or central cyanosis. Normal vesicular breath sounds CTA B/L. No wheezes, rales, or rhonchi appreciated. CARDIAC - RRR with S1/S2. No murmur, rubs, or gallops appreciated. ABDOMEN - Abdominal contour without pulsations or visible masses. BS normoactive all four quadrants. No tenderness, palpable masses, hepatosplenomegaly, or ascites noted. EXTREMITIES - No clubbing or peripheral cyanosis. No pretibial edema present. +3/5 radial, posterior tibial, and dorsalis pedis pulses palpated throughout. RUE: shoulder in immobilizer NEUROLOGIC - Cranial nerves II through XII grossly intact. Sensory intact to light touch throughout. Patellar reflexes +2/4. PSYCH - A&Ox3 and cooperates fully with examiner. Pt is very pleasant and interacts well with examiner. Course Administered Medications Enoxaparin Sodium (Enoxaparin Inj 40 Mg/0.4 Ml Syr) 40 mg SQ QAM JOSE LUIS Stop: 04/27/20 08:59 Last Admin: 03/28/20 08:14 Dose: 40 mg Documented by: [id number] Ceftriaxone Sodium 2,000 mg/ (Dextrose) 50 mls @ 100 mls/hr IV DAILY JOSE LUIS; Protocol Stop: 04/07/20 08:59 Last Infusion: 03/28/20 08:55 Dose: 0 mls/hr Documented by: [id number] Admin: 03/28/20 08:29 Dose: 100 mls/hr Documented by: [id number] Dexmedetomidine HCl 200 mcg/ (Sodium Chloride) 50 mls @ 2.69 mls/hr IV .[id number] [facility]; Protocol Stop: 04/01/20 07:14 Last Admin: 03/28/20 07:36 Dose: 0.2 mcg/kg/hr, 2.7 mls/hr Documented by: [id number] Cosigned by: [id number] Discontinued Medications Benztropine Mesylate (Benztropine Mesylate 1 Mg/Ml 2 Ml Amp) 2 mg IV NOW STA Stop: 03/27/20 11:41 Last Admin: 03/27/20 11:59 Dose: 2 mg Documented by: [id number] Diphenhydramine HCl (Diphenhydramine Hcl 50 Mg/Ml Vial) Confirm Administered Dose 50 mg .ROUTE .STK-MED ONE Stop: 03/27/20 15:08 Last Admin: 03/27/20 15:28 Dose: 50 mg Documented by: [id number] Fentanyl Citrate (Fentanyl Citrate 1250mcg/250ml Nss) Confirm Administered Dose 1,250 mcg IV .STK-MED ONE Stop: 03/27/20 20:55 Last Admin: 03/27/20 21:55 Dose: Not Given Documented by: [id number] Fentanyl Citrate (Fentanyl Bolus From Bag) 50 mcg IV Q60M PRN PRN Reason: Pain or Agitation Stop: 04/10/20 20:59 Last Admin: 03/28/20 02:50 Dose: 50 mcg Documented by: [id number] Gadobutrol (Gadobutrol 65ml Vial) 6.7 ml IV ONCE ONE Stop: 03/28/20 00:21 Last Admin: 03/27/20 23:47 Dose: 6.7 ml Documented by: [id number] Hydrocortisone Sodium Succinate (Hydrocortisone Sod Succinate 100 Mg/2 Ml Vial) 100 mg IV NOW STA Stop: 03/27/20 12:47 Last Admin: 03/27/20 13:18 Dose: 100 mg Documented by: [id number] Sodium Chloride (Nss 1000ml) 1,000 mls @ 999 mls/hr IV .Q1H1M ONE Stop: 03/27/20 11:28 Last Infusion: 03/27/20 13:17 Dose: 0 mls/hr Documented by: [id number] Admin: 03/27/20 11:42 Dose: 999 mls/hr Documented by: [id number] Lorazepam (Ativan) 0.5 mg in 1 mls @ 1 mls/min IV NOW STA Stop: 03/27/20 12:54 Last Admin: 03/27/20 13:18 Dose: 1 mls/min Documented by: [id number] Sodium Chloride (Nss 1000ml) 500 mls @ 999 mls/hr IV .Q31M ONE Stop: 03/27/20 14:05 Last Infusion: 03/27/20 21:53 Dose: 0 mls/hr Documented by: [id number] Infusion: 03/27/20 16:24 Dose: 0 mls/hr Documented by: [id number] Admin: 03/27/20 14:30 Dose: 500 mls/hr Documented by: [id number] Lorazepam (Ativan) 1 mg in 2 mls @ 0.5 mls/min IV UD STA Stop: 03/27/20 14:07 Last Admin: 03/27/20 14:44 Dose: 0.5 mls/min Documented by: [id number] Levetiracetam 1,000 mg/ Sodium (Chloride) 110 mls @ 440 mls/hr IV NOW STA Stop: 03/27/20 14:21 Last Infusion: 03/27/20 15:00 Dose: 0 mls/hr Documented by: [id number] Admin: 03/27/20 14:45 Dose: 440 mls/hr Documented by: [id number] Sodium Chloride (Hypertonic Saline 3%) 50 mls @ 300 mls/hr IV .Q10M ONE Stop: 03/27/20 15:39 Last Admin: 03/27/20 16:25 Dose: Not Given Documented by: [id number] Lorazepam (Ativan) 1 mg in 2 mls @ 2 mls/min IV NOW STA Stop: 03/27/20 15:32 Last Admin: 03/27/20 15:32 Dose: 2 mls/min Documented by: [id number] Lorazepam (Ativan) 4 mg in 8 mls @ 4 mls/min IV NOW STA Stop: 03/27/20 16:30 Last Admin: 03/27/20 16:32 Dose: 4 mls/min Documented by: [id number] Vancomycin HCl 1,500 mg/ (Sodium Chloride) 530 mls @ 200 mls/hr IV NOW ONE Stop: 03/27/20 21:38 Last Infusion: 03/27/20 23:01 Dose: 0 mls/hr Documented by: [id number] Admin: 03/27/20 19:22 Dose: 200 mls/hr Documented by: [id number] Ampicillin Sodium 2,000 mg/ (Sodium Chloride) 100 mls @ 200 mls/hr IV Q6H JOSE LUIS; Protocol Stop: 04/06/20 19:29 Last Infusion: 03/27/20 21:55 Dose: 0 mls/hr Documented by: [id number] Admin: 03/27/20 19:20 Dose: 200 mls/hr Documented by: [id number] Ceftriaxone Sodium 2,000 mg/ (Dextrose) 50 mls @ 100 mls/hr IV Q12H JOSE LUIS; Protocol Stop: 04/06/20 17:59 Last Infusion: 03/27/20 19:23 Dose: 0 mls/hr Documented by: [id number] Admin: 03/27/20 18:40 Dose: 100 mls/hr Documented by: [id number] Acyclovir Sodium 550 mg/ (Dextrose) 261 mls @ 250 mls/hr IV Q12H JOSE LUIS; Protocol Stop: 04/06/20 19:59 Last Infusion: 03/27/20 21:52 Dose: 0 mls/hr Documented by: [id number] Admin: 03/27/20 19:22 Dose: 250 mls/hr Documented by: [id number] Dexamethasone Sodium Phosphate (10 mg/ Syringe) 2.5 mls @ 1 mls/min IV Q6H JOSE LUIS Stop: 03/31/20 18:59 Last Admin: 03/27/20 19:22 Dose: 1 mls/min Documented by: [id number] Acetaminophen (Ofirmev) 1,000 mg in 100 mls @ 400 mls/hr IV ONCE ONE Stop: 03/27/20 18:52 Last Infusion: 03/27/20 21:54 Dose: 0 mls/hr Documented by: [id number] Admin: 03/27/20 19:21 Dose: 400 mls/hr Documented by: [id number] Dextrose (D5w) 100 mls @ 999 mls/hr IV .Q6M ONE Stop: 03/27/20 20:47 Last Infusion: 03/27/20 21:57 Dose: 0 mls/hr Documented by: [id number] Admin: 03/27/20 20:42 Dose: 999 mls/hr Documented by: [id number] Fentanyl Citrate (Fentanyl Drip) 1,250 mcg in 250 mls @ 5 mls/hr IV .Q50H PRN; Protocol PRN Reason: Sedation Stop: 04/10/20 20:59 Last Titration: 03/28/20 07:35 Dose: 0 mcg/hr, 0 mls/hr Documented by: [id number] Cosigned by: [id number] Titration: 03/28/20 06:55 Dose: 25 mcg/hr, 5 mls/hr Documented by: [id number] Cosigned by: [id number] Titration: 03/28/20 05:36 Dose: 25 mcg/hr, 5 mls/hr Documented by: [id number] Cosigned by: [id number] Titration: 03/28/20 05:07 Dose: 0 mcg/hr, 0 mls/hr Documented by: [id number] Cosigned by: [id number] Titration: 03/28/20 01:26 Dose: 25 mcg/hr, 5 mls/hr Documented by: [id number] Cosigned by: [id number] Titration: 03/28/20 00:50 Dose: 50 mcg/hr, 10 mls/hr Documented by: [id number] Cosigned by: [id number] Admin: 03/27/20 21:33 Dose: 25 mcg/hr, 5 mls/hr Documented by: [id number] Cosigned by: [id number] Propofol (Diprivan) 1,000 mg in 100 mls @ 0 mls/hr IV .Q0M JOSE LUIS; Protocol Stop: 03/30/20 21:14 Last Titration: 03/28/20 07:37 Dose: 0 mcg/kg/min, 0 mls/hr Documented by: [id number] Titration: 03/28/20 04:17 Dose: 0 mcg/kg/min, 0 mls/hr Documented by: [id number] Titration: 03/28/20 02:50 Dose: 5 mcg/kg/min, 1.8 mls/hr Documented by: [id number] Titration: 03/28/20 02:21 Dose: 0 mcg/kg/min, 0 mls/hr Documented by: [id number] Titration: 03/28/20 02:08 Dose: 10 mcg/kg/min, 3.7 mls/hr Documented by: [id number] Titration: 03/28/20 01:26 Dose: 15 mcg/kg/min, 5.5 mls/hr Documented by: [id number] Titration: 03/28/20 00:50 Dose: 20 mcg/kg/min, 7.3 mls/hr Documented by: [id number] Titration: 03/27/20 23:51 Dose: 30 mcg/kg/min, 11 mls/hr Documented by: [id number] Admin: 03/27/20 21:34 Dose: 20 mcg/kg/min, 7.3 mls/hr Documented by: [id number] Cosigned by: [id number] Dextrose (D5w) 100 mls @ 999 mls/hr IV .Q6M ONE Stop: 03/28/20 01:45 Last Infusion: 03/28/20 02:08 Dose: 0 mls/hr Documented by: [id number] Admin: 03/28/20 01:50 Dose: 999 mls/hr Documented by: [id number] Dextrose (D5w) 100 mls @ 999 mls/hr IV .Q6M ONE Stop: 03/28/20 06:05 Last Infusion: 03/28/20 06:19 Dose: 0 mls/hr Documented by: [id number] Admin: 03/28/20 06:05 Dose: 999 mls/hr Documented by: [id number] Metoclopramide HCl (Metoclopramide Hcl Inj 5 Mg/Ml 2 Ml Vial) 10 mg IV NOW STA Stop: 03/27/20 10:30 Last Admin: 03/27/20 11:42 Dose: 10 mg Documented by: [id number] Miscellaneous (Rapid Sequence Induction Bag) Confirm Administered Dose 1 ea .ROUTE .STK-MED ONE Stop: 03/27/20 20:30 Last Admin: 03/27/20 20:29 Dose: 1 ea Documented by: [id number] Miscellaneous (Stat Iv Infusion Titration Per Protocol) 1 ea N/A NOW STA Stop: 03/28/20 07:03 Last Admin: 03/28/20 07:36 Dose: Not Given Documented by: [id number] Ondansetron HCl (Ondansetron Inj 2 Mg/Ml 2 Ml Vial) 4 mg IV NOW STA Stop: 03/27/20 11:42 Last Admin: 03/27/20 11:59 Dose: 4 mg Documented by: [id number] Propofol (Propofol Iv Emulsion 10 Mg/Ml 100 Ml Vial) Confirm Administered Dose 1,000 mg IV .STK-MED ONE Stop: 03/27/20 20:29 Last Admin: 03/27/20 21:54 Dose: Not Given Documented by: [id number] Ropinirole HCl (Ropinirole Hcl 0.25 Mg Tablet) 0.25 mg PO NOW STA Stop: 03/27/20 11:41 Last Admin: 03/27/20 12:03 Dose: 0.25 mg Documented by: [id number] Sodium Chloride (Sodium Chloride 3% 500 Ml Bag) Confirm Administered Dose 500 ml IV .STK-MED ONE Stop: 03/27/20 15:47 Last Admin: 03/27/20 15:50 Dose: 150 ml Documented by: [id number] Cosigned by: [id number] Critical Care Time I have personally spent greater than 30 minutes of critical care time in the direct management of this patient. This includes bedside care, interpretation of diagnostic studies, and testing, discussion with consultants, patient, and family members, and other required patient management activities. This 30 minutes is in excess of all separately billable procedures. Medical Decision Making Differential Diagnosis Infection, dehydration, metabolic abnormality, hypo/hyperglycemia, electrolyte disturbance, anemia, hypoxia, cardiac sources, intracerebral event, toxicologic, neurologic, as well as other pathologies. Medical Records Attestation: I reviewed the patient's medical records. Home Medications Current Medication List: was personally reviewed by me Laboratory Data Attestation: I reviewed the patient's lab results. Result diagrams: 03/28/20 04:53 03/28/20 04:53 Lab Results 03/27/20 03/27/20 03/27/20 Range/Units 10:56 10:56 10:56 WBC 8.88 (4.8-10.8) K/uL RBC 3.93 L (4.2-5.4) M/uL Hgb 12.2 (12.0-16.0) g/dL Hct 34.3 L (37-47) % MCV 87.3 (80-100) fL MCH 31.0 (25-34) pg MCHC 35.6 (32-36) g/dL RDW Std Deviation 42.2 (36.4-46.3) fL RDW Coeff of Sachin 13.0 (11.5-14.5) % Plt Count 251 (130-400) K/uL MPV 7.8 (7.4-10.4) fL Immature Gran % (Auto) 1.1 % Neut % (Auto) 63.2 % Lymph % (Auto) 21.1 % [place] % (Auto) 13.4 % Eos % (Auto) 1.1 % Baso % (Auto) 0.1 % Neut # (Auto) 5.61 (1.4-6.5) K/uL Lymph # (Auto) 1.87 (1.2-3.4) K/uL [place] # (Auto) 1.19 H (0.11-0.59) K/uL Eos # (Auto) 0.10 (0-0.5) K/uL Baso # (Auto) 0.01 (0-0.2) K/uL Immature Gran # (Auto) 0.10 H (0.00-0.02) K/uL Sodium 121 L (136-145) mmol/L Potassium 3.9 (3.5-5.1) mmol/L Chloride 85 L (98-107) mmol/L Carbon Dioxide 27 (21-32) mmol/L Anion Gap 9.0 (3-11) BUN 21 H (7-18) mg/dl Creatinine 1.22 H (0.6-1.2) mg/dl Est Cr Clr Drug Dosing Not Reportable Est GFR ( Amer) 49.5 Est GFR (Non-Af Amer) 42.7 BUN/Creatinine Ratio 16.9 (10-20) Glucose 83 (70-99) mg/dl Calcium 9.3 (8.5-10.1) mg/dl Total Bilirubin 0.5 (0.2-1) mg/dl AST 28 (15-37) U/L ALT 22 (12-78) U/L Alkaline Phosphatase 67 (45-117) U/L Total Creatine Kinase 198 H (26-192) U/L Total Protein 6.6 (6.4-8.2) gm/dl Albumin 3.1 L (3.4-5.0) gm/dl Globulin 3.5 (2.5-4.0) gm/dl Albumin/Globulin Ratio 0.9 (0.9-2) Lipase 98 (73-393) U/L Random Cortisol 14.95 mcg/dl Urine Color Urine Appearance (Clear) Urine pH (4.5-7.5) Ur Specific [place] (1.000-1.030) Urine Protein (Negative) Urine Glucose (UA) (Negative) Urine Ketones (Negative) Urine Blood (Negative) Urine Nitrite (Negative) Urine Bilirubin (Negative) Urine Urobilinogen (Negative) Ur Leukocyte Esterase (Negative) Urine Osmolality (500-800) mOsm/kg Ur Random Sodium mmol/L 03/27/20 03/27/20 03/27/20 Range/Units 12:15 12:15 12:15 WBC (4.8-10.8) K/uL RBC (4.2-5.4) M/uL Hgb (12.0-16.0) g/dL Hct (37-47) % MCV (80-100) fL MCH (25-34) pg MCHC (32-36) g/dL RDW Std Deviation (36.4-46.3) fL RDW Coeff of Sachin (11.5-14.5) % Plt Count (130-400) K/uL MPV (7.4-10.4) fL Immature Gran % (Auto) % Neut % (Auto) % Lymph % (Auto) % [place] % (Auto) % Eos % (Auto) % Baso % (Auto) % Neut # (Auto) (1.4-6.5) K/uL Lymph # (Auto) (1.2-3.4) K/uL [place] # (Auto) (0.11-0.59) K/uL Eos # (Auto) (0-0.5) K/uL Baso # (Auto) (0-0.2) K/uL Immature Gran # (Auto) (0.00-0.02) K/uL Sodium (136-145) mmol/L Potassium (3.5-5.1) mmol/L Chloride (98-107) mmol/L Carbon Dioxide (21-32) mmol/L Anion Gap (3-11) BUN (7-18) mg/dl Creatinine (0.6-1.2) mg/dl Est Cr Clr Drug Dosing Est GFR ( Amer) Est GFR (Non-Af Amer) BUN/Creatinine Ratio (10-20) Glucose (70-99) mg/dl Calcium (8.5-10.1) mg/dl Total Bilirubin (0.2-1) mg/dl AST (15-37) U/L ALT (12-78) U/L Alkaline Phosphatase (45-117) U/L Total Creatine Kinase (26-192) U/L Total Protein (6.4-8.2) gm/dl Albumin (3.4-5.0) gm/dl Globulin (2.5-4.0) gm/dl Albumin/Globulin Ratio (0.9-2) Lipase (73-393) U/L Random Cortisol mcg/dl Urine Color Yellow Urine Appearance Clear (Clear) Urine pH 6.5 (4.5-7.5) Ur Specific [place] 1.010 (1.000-1.030) Urine Protein Negative (Negative) Urine Glucose (UA) Negative (Negative) Urine Ketones Negative (Negative) Urine Blood Negative (Negative) Urine Nitrite Negative (Negative) Urine Bilirubin Negative (Negative) Urine Urobilinogen Negative (Negative) Ur Leukocyte Esterase Negative (Negative) Urine Osmolality 255 L (500-800) mOsm/kg Ur Random Sodium 39 mmol/L MDM Narrative Patient was seen and evaluated as above in room C3. Review was performed of nursing notes and vital signs. I did review pertinent previous visits and patient history. After obtaining a thorough history and physical examination the above work up was performed. This 79-year-old female comes emergency department complaining of vomiting as well as severe dystonic movements of her legs. The patient is on a low dose of prednisone daily and I suspect after her shoulder surgery she is experiencing adrenal insufficiency based on the fact that the patient's sodium and chloride have both dropped. I attempted to get the patient's chorionic movements under control by giving her Cogentin as well as Ativan without success. She was given 100 mg of Solu-Cortef and given a bolus and a half of fluid. She was also started on Keppra. Due to the hyponatremia I did discuss the case with the hospitalist service who did agree to admit the patient. An order was placed for continuous cardiac monitoring. The monitor shows a rate of 86 with Normal Sinus rhythm. The patient was evaluated during the global COVID- pandemic, and that diagnosis was suspected/considered upon their initial presentation. Their lawrence luation, treatment and testing was consistent with current guidelines for patients who present with complaints or symptoms that may be related to COVID- 19. Impression & Plan Acute hyponatremia, Inflammatory polyarthritis, Acute adrenal insufficiency Discharge Plan Visit Data Chief Complaint: Vomiting Stated Complaint: VOMITING, WEAK ED Provider: Shayne Jeff Discharge Problem: Acute hyponatremia, Inflammatory polyarthritis, Acute adrenal insufficiency Patient Disposition: Admitted As Inpatient Discharge Instructions Interventions: ED Discharge Assessment Last Done: 03/27/20 17:31
[2020-03-27] MEDS ORDERED: DiphenhydrAMINE HCL 50 MG/ML VIAL IV STA (15:05)
[2020-03-27] MEDS ORDERED: DiphenhydrAMINE HCL 50 MG/ML VIAL ONE (15:07)
[2020-03-27] MEDS ORDERED: SODIUM CHLORIDE 3 % 50 ML IV ONE (15:30)
[2020-03-27] MEDS ORDERED: SODIUM CHLORIDE 3 % 100 ML IV ONE (15:44)
[2020-03-27] MEDS ORDERED: SODIUM CHLORIDE 3% 500 ML BAG IV ONE (15:46)
[2020-03-27 16:13] LABS: iSTAT Creatinine 1.4 mg/dl (0.6-1.3); iSTAT Hemoglobin 12.6 g/dl (12.0-16.0); iSTAT Ionized Calcium 1.09 mmol/l (1.12-1.32); iSTAT Potassium 4.4 mmol/L (3.3-5.0)
--- NOTE | 2020-03-27 16:22 | CT Scan Report ---
CT head/brain wo con CLINICAL HISTORY: 79 years-old Female with seizure like activity. TECHNIQUE: Multiple axial CT images of the head were obtained without contrast. A dose lowering tech nique was utilized adhering to the principles of ALARA. CT DOSE: 1074.96 mGy.cm COMPARISON: Head CT 11/26/2007 FINDINGS: Motion degraded exam. The study was then repeated which is also motion degraded. No acute intracrania l hemorrhage, midline shift, intracranial mass, hydrocephalus, territorial ischemia or abnormal extra -axial collection. Age-related involutional changes. Patchy white matter hypodensities suggest chroni c microvascular ischemic disease. Cerebral vascular calcifications. The calvarium is intact. Prior bilateral lens replacement. The paranasal sinuses, mastoid air cells, and middle ear cavities are clear. IMPRESSION: Motion degraded exam. No acute intracranial abnormality. ACT 112: Negative or not required by law. The above report was generated using voice recognition software. It may contain grammatical, syntax o r spelling errors. Electronically signed by: Chris Wesley M.D. 03/27/2020 4:21 PM
[2020-03-27 16:23] LABS: BUN Creatinine Ratio 13.5 (10-20); Blood Urea Nitrogen 20 mg/dl (7-18); Calcium 9.3 mg/dl (8.5-10.1); Carbon Dioxide 18 mmol/L (21-32); Chloride 91 mmol/L (98-107); Est GFR (African American) 39.5; Est GFR (Non-African American) 34.1; Glucose 84 mg/dl (70-99); Potassium 4.3 mmol/L (3.5-5.1); Sodium 124 mmol/L (136-145)
[2020-03-27 16:24] LABS: Base Excess ABG -4.7 mEq/L (-9-1.8); HCO3 ABG 19 mmol/L (19-24); Oxygen Saturation ABG 88.6 % (90-95); PCO2 ABG 30 mmHg (35-46); PO2 ABG 59 mmHg (80-95); pH ABG 7.42 (7.35-7.45)
[2020-03-27 16:25] LABS: Allen Test Pos (Pos)
[2020-03-27] MEDS ORDERED: ETOMIDATE 2 MG/ML 20 ML VIAL IV ONE (16:25)
[2020-03-27] MEDS ORDERED: fentaNYL citrate 100 MCG/2 ML VIAL IV ONE (16:25)
[2020-03-27] MEDS ORDERED: LORazepam 4 MG/8 ML VIAL IV STA (16:29)
--- NOTE | 2020-03-27 17:05 | History & Physical Report ---
Date of Service March 27, 2020 Assessment & Plan (1) Drug induced akathisia: Unclear definitive cause due to multiple treatments given and certainly has some chronic movement disorder prior to this although suspect combination of metoclopramide (given in ER), possible recent opiate use (post surgery), missing her usual Requip this morning and hyponatremia contributing. Discussed with ICU as unable to control with multiple doses of Ativan. Clinical picture is unclear given number of different medications given in the ER and patient came in with her usual "restless leg syndrome" movement disorder. Once able recommend EKG, CT head, CT abdomen pelvis given presenting complaint of nausea and vomiting, blood cultures, consider lumbar puncture. (2) Acute encephalopathy: Same differential as above and below. (3) Acute hyponatremia: NSS approx 1.2L given in the ER. Hypertonic saline 3% 100ml bolus recommended by painter and body work. Repeat BMP taken during hypertonic saline appears to be increased. Based on history I suspect she has hypovolemic hyponatremic hyponatremia due to hydrochlorothiazide use and nausea and vomiting. Since second BMP taken during hypertonic saline infusion unclear whether initial normal saline made this worse may represent SIADH - will need CT head as above Given history of nausea and vomiting some concern of adrenal insufficiency on admission and given 100 mg IV hydrocortisone however patient was not hypotensive (see below). TSH pending Urine osmolality and sodium added to prior sample (4) Acute adrenal insufficiency: Concern for this admission due to hyponatremia, nausea, vomiting. However no hypotension. Random cortisol WNL. Will defer further hydrocortisone to ICU team. (5) Increased anion gap metabolic acidosis: After restless movements for multiple hours. Repeat BMP with anion gap metabolic acidosis. Suspect lactic acid induced with excessive movements. Will defer further IV fluids to ICU team. (6) Hypercholesterolemia: Holding atorvastatin with acute metabolic encephalopathy (7) Hypothyroidism: TSH pending. Switch PO levothyroxine to IV if WNL. (8) Rheumatoid arthritis: On hydroxychloroquine and prednisone chronically. Rheumatoid vs. inflammatory polyarthritis. (9) Hx of Hodgkin's disease: Notable history of this (10) Hypertension: Holding antihypertensives (11) DVT prophylaxis: Deferred prior to CT head Admission and Anticipated Discharge Date Admission Date: 03/27/2020 History of Present Illness Chief Complaint: Altered mental state, movement disorder, nausea and vomiting Primary Care Provider: MD Werner Cortezalesia Jadeteresa is a 79-year-old female who initially came to the emergency room due to nausea and vomiting. This started yesterday. She is recently been taking oxycodone after recent right shoulder surgery for chronic impingement, biceps tendinopathy and rotator cuff tears. When seen the patient was unable to give any history due to metabolic encephalopathy movement disorder. Her daughter was understandably distressed at bedside and difficult to get a full history but appears her nausea and vomiting started yesterday. No associated abdominal pain, melena, bright red blood in stool or change in bowels. Medicine was consulted for adrenal insufficiency and hyponatremia. On discussion with her nurse if she came in via wheelchair with mild movement disorders of her legs which is close to her baseline with an apparent diagnosis of restless leg syndrome for which she takes Requip although she missed her usual dose this morning, her restless leg syndrome was worse last night but the main reason for coming to the ER was the nausea and vomiting. She was orientated and able to have a full conversation when she came to the ER but did appear restless. In the ER she was initially treated with metoclopramide 10 mg IV and NSS 1 L rajwinder us. Due to her restless legs (I am unclear whether they are worsening at this time) she was given her usual Requip in addition to Cogentin 2 mg IV, then subsequent 0.5 mg Ativan IV. Labs showed hyponatremia with sodium 121 (previously 130 in February) therefore there was concern for adrenal insufficiency with chronic prednisone use, recent surgery and concurrent nausea and vomiting - she was treated with 100 mg IV hydrocortisone with additional NSS 500 ml bolus. Medicine were consulted for hyponatremia with suspected adrenal insufficiency. She was given an additional 1 mg IV Ativan 10 minutes prior to me seeing the patient. Her daughter reported since coming to the ER significant worsening of her movement disorder. The patient was not responding to voice or noxious stimuli when seen. She appeared restless in bed with large dancing movements of all 4 extremities but especially both legs. Suspected akathisia secondary to metoclopramide therefore 50 mg IV Benadryl given. Patient at risk to herself pulling out IV lines therefore she was placed in soft restraints at 2:30 PM. Normal saline was discontinued due to concern for SIADH and worsening hyponatremia. Repeat BMP ordered. Additional 1 mg Ativan given without any significant change in her movements. Discussed care with Dr. Dougherty (neurology) and Dr. Newby (ICU) due to potential need for further sedation and possible intubation who came to review the patient at bedside. Daughter has a video on her phone regarding her movement disorder last night. This shows the patient moving her legs constantly, rhythmically, int/ext rotation of the hip while patient is sleeping. Allergies Allergy/AdvReac Type Severity Reaction Status Date / Time No Known Drug Allergies Allergy Verified 03/27/20 11:18 Home Medications Home Medications Medication Instructions Recorded Confirmed Type cholecalciferol (vitamin D3) 2,000 unit PO QAM 05/05/18 03/27/20 History [Vitamin D3] multivitamin 1 tab PO QDD 05/05/18 03/27/20 History ezetimibe 10 mg tablet 10 mg PO QAM #90 tab 05/04/19 03/27/20 Rx calcium carbonate 600 mg calcium 600 mg PO BID tab 06/19/19 03/27/20 History (1,500 mg) tablet oxycodone-acetaminophen 5 mg-325 1 tab PO Q6H PRN #90 tab 06/21/19 03/27/20 Rx mg tablet ropinirole 0.25 mg tablet 0.25 mg PO HS #90 tab 07/03/19 03/27/20 Rx atorvastatin 80 mg tablet 80 mg PO HS #90 tab 07/16/19 03/27/20 Rx cyclobenzaprine 10 mg tablet 10 mg PO HS PRN #90 tab 07/16/19 03/27/20 Rx omeprazole 20 mg capsule,delayed 20 mg PO BID #180 cap 07/16/19 03/27/20 Rx release prednisone 5 mg tablet 7.5 mg PO DAILY #60 tab 08/15/19 03/27/20 Rx hydrochlorothiazide 25 mg tablet 25 mg PO DAILY #90 tab 09/27/19 03/27/20 Rx levothyroxine 75 mcg tablet 75 mcg PO QAM #90 tab 10/19/19 03/27/20 Rx ropinirole 2 mg tablet,extended 2 mg PO DAILY #90 tab 12/25/19 03/27/20 Rx release 24 hr diclofenac sodium 1 % topical gel 2 gm TOPICAL QID #100 gm 01/02/20 03/27/20 Rx tramadol 50 mg tablet 50 mg PO Q6H #100 tab 01/11/20 03/27/20 Rx hydroxychloroquine 200 mg tablet 200 mg PO BID #180 tab 01/31/20 03/27/20 Rx acetaminophen 1,000 mg PO Q6H PRN 03/06/20 03/27/20 History lisinopril 0 mg PO DAILY 03/27/20 03/27/20 History Past Med/Surg History Medical History (Updated 03/28/20 @ 09:44 by Tien Dougherty MD) Acid reflux Chronic kidney disease 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 Dysuria Hiatal hernia History of Hodgkin's lymphoma S/P RADIATION/CHEMO (2000) History of pelvic fracture Hyperlipidemia Hypertension Hypothyroidism Mixed stress and urge urinary incontinence Restless leg syndrome Rheumatoid arthritis ON PLAQUENIL AND CHRONIC PREDNISONE 7.5MG DAILY Sciatica Scoliosis Surgical History H/O foot surgery 2ND RT TOE REMOVED History of bilateral cataract extraction RIGHT CATARACT EXTRACTION WITH IOL= 04/05/18= MAC SEDATION AT [facility] History of colonoscopy History of gynecologic surgery ANTERIOR AND POSTERIOR REPAIR - colporrhaphy (for pelvic relaxation) History of removal of cyst HEAD (BENIGN) History of tonsillectomy History of tooth extraction History of total knee replacement RT History of urologic surgery [place]- [place] [facility] [place] Family History Mother Cardiac disorder Family history of lung cancer Brother Diabetes Family history of lung cancer Family history of diabetes mellitus Daughter Breast cancer Father Cardiac disorder Grandmother Diabetes Aunt Ovarian cancer paternal aunt Grandmother (Paternal) Family history of diabetes mellitus Denies family history of Colon cancer Colorectal cancer Social History Smoking Status: Never smoker Cigarettes Per Day: QUIT + 30 YEARS AGO; Second Hand Exposure: No; Hx Alcohol Use: Yes Alcohol type: wine Alcohol Intake Frequency Comment: Social Preferred Language: Macanese Communication Ability: Effective Communication Ability Comment: Non-verbal, confused at this time. 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 [employer] Feels Safe at Home: Yes Sunscreen Use: Yes (occasionally) Review of Systems Review of Systems: Unobtainable due to cognitive status Physical Exam Physical Exam: Unable to fully examine patient as writhing around in bed Constitutional: well developed and + acute distress (Flailing legs > arms in bed); + not well nourished Eyes: + anicteric sclerae and + abnormal pupil size (miotic, unable to examine if reactive due to constant movements) Respiratory: + respiratory distress, + retractions and + uses accessory muscles Cardiovascular: Rate/Rhythm: regular rhythm and + tachycardic Gastrointestinal (Abdomen): Percussion/Palpation: abdomen soft Neurologic: Alert, flailing all 4 extremities with some purposeful but uncontrolled movements trying to get out IV line. Right arm in sling after recent operation. Not responding to voice or noxious stimuli Psychiatric: Orientation: + not oriented x 3 Motor Behavior: + psychomotor agitation Results & Data Results & Data ([facility]) Vital Signs (Past 12 Hours) Vital Signs Temp Pulse Pulse Resp BP BP Pulse Ox 03/27/20 12:00 88 18 166/118 H 95 03/27/20 10:12 36.6 C 80 16 135/69 98 Code Status & VTE Plan Code Status Full VTE Prophylaxis Plan VTE Prophylaxis will be ordered: Yes Critical Care Time Critical Care Time: Yes Total Critical Care Time: 45 PG Care Time/CCT Total # of Minutes Spent Total Time Spent with Patient: Total time spent is greater than 50% in coordination of care (as documented) at patient's floor/unit and/or counseling patient: Critical Care Time: Yes Total Critical Care Time: 45 Coding Level of Care Code 47334 Initial Inpt Care Lvl 3 Diagnoses Drug induced akathisia G25.71 Acute encephalopathy G93.40 Acute hyponatremia E87.1 Acute adrenal insufficiency E27.40 Increased anion gap metabolic acidosis E87.2 Hypercholesterolemia E78.00 Hypothyroidism E03.9 Rheumatoid arthritis M06.9 Hx of Hodgkin's disease Z85.71 Hypertension I10 DVT prophylaxis Z29.9 Additional Codes Critical Care Time - Critical Care Time: Yes ([id number])
[2020-03-27] MEDS ORDERED: VANCOMYCIN CONSULT ACTIVE PRN (17:30)
[2020-03-27] MEDS ORDERED: PATIENT'S HEIGHT AND/OR WEIGHT NEEDED SCH (17:45)
--- NOTE | 2020-03-27 17:58 | Critical Care Consultation ---
Date of Consultation March 27, 2020 Assessment & Plan (1) Acute hyponatremia: 79 yo F w/ recent shoulder surgery here for vomiting found to have a sodium level of 121, patient developed choreiform movements while in the ED; she has a history of restless leg, she was febrile when she entered the ICU and differential includes hyponatremia leading to seizure, meningitis, serotonin syndrome, ruling out COVID given fevers and new oxygen requirement. Neuro - - CT head w/ no acute intracranial abnormality - concern for meningitis given fevers and altered mental status - plan for LP to further evaluation of CSF for signs consistent with meningitis - started Vancomycin dosed 20 mg/kg/dose - started Ceftriaxone 2,000 mg Q12H - started Ampicillin 2g - started acyclovir at 550 mg Q8H - EEG ordered - Utox. negative, glucose wnl. Cardiac - - Tachycardic to 132 - ECHO ordered Respiratory - - hypoxic, placed on 4L - CXR with cardiomegaly with pulmonary vascular congestion. - blood gas with primary respiratory alkalosis chronic with secondary metabolic acidosis and non gap metabolic acidosis GI - - Protonix 40 mg IV daily RENAL/LYTES - - Sodium as low as 121 improved to 125 after hypertonic saline, this may be secondary to medications, she was on prednisone, Hydroxychloroquine, HCTZ, and Tramadol which may have contributed to the low sodium - Cr. 1.47 up trending, continue to monitor w/ BMP - CK elevated at 1704 - - UA benign w/o LCE or nitrites ENDO - - slightly elevated TSH at 4.6 T4 nl. at 1.45 - ESR 27, CRP 4.93 HEME - - H&H 12.2 & 34.3 ID - - Concern for Meningitis given AMS, choreiform movements - Started Vancomycin, Ceftriaxone, Acyclovir, Ampicillin - Started Dexamethasone 10 mg Q6H for concern of meningitis - blood cultures drawn - Lactate 2.3 MSK - - CK elevated at 1704 - recheck at midnight to further evaluate for rhabdo LINES/IV ACCESS - PIV DVT PROPHYLAXIS - Lovenox Supervising Physician Co-Signing Physician Notes Dr. Varela was the resident-physician during care of patient. I separately evaluated patient for haynes portions of the history and the exam. I was present during the critical portion of medical decision making, and I discussed the case with the resident. I generally agree with the findings and plan except for any additions/exceptions noted. 79-year-old female with a past medical history of inflammatory joint disease and recent right shoulder rotator cuff surgery presenting to the hospital with nausea/vomiting, hyponatremia and acute encephalopathy. Apparently, when the patient first presented, she was alert and oriented and s ubsequently in the ER secondary to nausea she received Reglan and began having significant abnormal movements with her arms and legs. She was thrashing about in the ER when I was evaluating her. She was not responsive to vocal commands. She would not open her eyes. She did have small pupils that were reactive to light. She did not feel overly rigid. Reflexes were difficult to assess due to her thrashing. She received approximately 7 mg of Ativan total since her ER stay. She is currently obtunded but still thrashing around when agitated. She does withdraw to pain. She is currently saturating 90% on 4 L nasal cannula. I did give her a 150 mL bolus of 3% normal saline over 30 minutes due to concerns of acute hyponatremia. We are checking her sodium every 1 hour. Our goal is not to raise her sodium above 8 to 10 mEq in 24 hours. I discussed the case with the patient's daughters and indicated that we will need to perform a lumbar puncture to rule out meningitis as she began spiking fevers in the ICU. I am not certain that we will be able to do a lumbar puncture safely with her current condition. I did indicate that there is a strong possibility we will have to intubate her to perform the lumbar puncture safely and also for airway protection given her progressively worsening hypoxemia and altered mental status. We are currently giving her vancomycin, ceftriaxone, ampicillin and acyclovir to cover both bacterial and viral meningitis. Her CT head was negative for any acute bleed. EEG was performed at bedside with results pending. Urine drug screen was negative. Notably, the patient does take tramadol, HCTZ, Plaquenil, ropinirole and Flexeril. A number of these medications can cause hyponatremia. Neuroleptic malignant syndrome and serotonin syndrome are also on the differential. Her CK was elevated to nearly 2000. Lactic acid was elevated to 2.3. She did receive Keppra in the ER for possible seizure. TSH is within normal limits and thus I think thyroid storm is less likely. Patient is critically ill at this time and will continue to remain in the ICU. I have personally spent 114 minutes of critical care time in the direct management of this patient. This is a life/limb threatening event. This includes time spent evaluating patient, direct bedside care, chart review, placing orders, interpretation of diagnostic studies, discussion with c onsultants, patient, and/or family members regarding treatment decisions, as well as other required patient management activities. This time is exclusive of all separately billable procedures, and teaching time and separate from and in addition to any other critical care service time. History of Present Illness Attending Physician: Burke Oswald MD Shruthi Brannon is a 79-year-old female with a past medical history of HTN, CKD, HLD, Hypercholesteremia, Hodgkins disease, inflammatory arthritis, atrophy of the left kidney. She had a recent history of right shoulder surgery. She came in with vomiting and weakness. She has a history of restless leg syndrome and family showed us a video of the restless leg while the patient was sleeping the night prior. The patient's legs were writhing. When she entered the ER she was walking and talking. Her symptoms acutely worsened after receiving Reglan, developing writhing movements in all extremities and was nonresponsive. She was unresponsive, family was here but did not know her prior medical history. Allergies Allergy/AdvReac Type Severity Reaction Status Date / Time No Known Drug Allergies Allergy Verified 03/27/20 11:18 Home Medications Home Medications Medication Instructions Recorded Confirmed Type cholecalciferol (vitamin D3) 2,000 unit PO QAM 05/05/18 03/27/20 History [Vitamin D3] multivitamin 1 tab PO QDD 05/05/18 03/27/20 History ezetimibe 10 mg tablet 10 mg PO QAM #90 tab 05/04/19 03/27/20 Rx calcium carbonate 600 mg calcium 600 mg PO BID tab 06/19/19 03/27/20 History (1,500 mg) tablet oxycodone-acetaminophen 5 mg-325 1 tab PO Q6H PRN #90 tab 06/21/19 03/27/20 Rx mg tablet ropinirole 0.25 mg tablet 0.25 mg PO HS #90 tab 07/03/19 03/27/20 Rx atorvastatin 80 mg tablet 80 mg PO HS #90 tab 07/16/19 03/27/20 Rx cyclobenzaprine 10 mg tablet 10 mg PO HS PRN #90 tab 07/16/19 03/27/20 Rx omeprazole 20 mg capsule,delayed 20 mg PO BID #180 cap 07/16/19 03/27/20 Rx release prednisone 5 mg tablet 7.5 mg PO DAILY #60 tab 08/15/19 03/27/20 Rx hydrochlorothiazide 25 mg tablet 25 mg PO DAILY #90 tab 09/27/19 03/27/20 Rx levothyroxine 75 mcg tablet 75 mcg PO QAM #90 tab 10/19/19 03/27/20 Rx ropinirole 2 mg tablet,extended 2 mg PO DAILY #90 tab 12/25/19 03/27/20 Rx release 24 hr diclofenac sodium 1 % topical gel 2 gm TOPICAL QID #100 gm 01/02/20 03/27/20 Rx tramadol 50 mg tablet 50 mg PO Q6H #100 tab 01/11/20 03/27/20 Rx hydroxychloroquine 200 mg tablet 200 mg PO BID #180 tab 01/31/20 03/27/20 Rx acetaminophen 1,000 mg PO Q6H PRN 03/06/20 03/27/20 History lisinopril 0 mg PO DAILY 03/27/20 03/27/20 History Patient History Medical History Acid reflux Chronic kidney disease 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 Dysuria Hiatal hernia History of Hodgkin's lymphoma S/P RADIATION/CHEMO (2000) History of pelvic fracture Hyperlipidemia Hypertension Hypothyroidism Mixed stress and urge urinary incontinence Restless leg syndrome Rheumatoid arthritis ON PLAQUENIL AND CHRONIC PREDNISONE 7.5MG DAILY Sciatica Scoliosis Surgical History H/O foot surgery 2ND RT TOE REMOVED History of bilateral cataract extraction RIGHT CATARACT EXTRACTION WITH IOL= 04/05/18= MAC SEDATION AT [facility] History of colonoscopy History of gynecologic surgery ANTERIOR AND POSTERIOR REPAIR - colporrhaphy (for pelvic relaxation) History of removal of cyst HEAD (BENIGN) History of tonsillectomy History of tooth extraction History of total knee replacement RT History of urologic surgery URETEROLYSIS- 04/1995 [facility] [place] vaginal [place]rectomy Family History Mother Cardiac disorder Family history of lung cancer Brother Diabetes Family history of lung cancer Family history of diabetes mellitus Daughter Breast cancer Father Cardiac disorder Grandmother Diabetes Aunt Ovarian cancer paternal aunt Grandmother (Paternal) Family history of diabetes mellitus Denies family history of Colon cancer Colorectal cancer Social History Smoking Status: Unknown if ever smoked Cigarettes Per Day: QUIT + 30 YEARS AGO; Second Hand Exposure: No; Preferred Language: Kyrgyz Communication Ability: Unable Communication Ability Comment: Non-verbal, confused at this time. Unable to answer any questions Visual Impairment: No Limitations Manager Treasury Required: No Beliefs That Will Affect Care: None marital status: Current Living Situation: Family Current Living Situation Comment: unknown, accompanied to ED by daughters current occupational status: retired Feels Safe at Home: Yes Sunscreen Use: Yes (occasionally) Review of Systems Review of Systems: Unobtainable due to cognitive status Physical Exam Constitutional: + altered mental status Eyes: - reactive to light Neck: normal visual inspection Respiratory: normal respiratory effort, lungs clear to auscultation Cardiovascular: tachycardic, no murmur, no edema Gastrointestinal (Abdomen): normal bowel sounds, nTTP, no guarding Neurologic: - eyes reactive to light - muscles not rigid - no hyperreflexia appreciated on exam Results & Data Results & Data ([facility]) Vital Signs (Past 12 Hours) Vital Signs Temp Pulse Pulse Resp BP BP Pulse Ox 03/27/20 16:39 38.6 C H 03/27/20 16:35 123 H 114/95 97 03/27/20 13:55 142 H 21 179/157 H 94 03/27/20 12:11 90 18 166/118 H 97 03/27/20 12:00 88 18 166/118 H 95 03/27/20 10:12 36.6 C 80 16 135/69 98
[2020-03-27] MEDS ORDERED: cefTRIAXone SODIUM 2,000 MG in DEXTROSE 5% 50 ML IV SCH (18:00)
--- NOTE | 2020-03-27 18:06 | XRay Report ---
XR chest 1V portable HISTORY: 79 years-old Female Pt c/o AMS . Acutely altered mental status COMPARISON: Chest radiograph 6 07/26/2018 TECHNIQUE: Supine AP view of the chest FINDINGS: Moderate cardiomegaly. Hiatal hernia. Telemetry leads are coiled over the chest. Calcified plaque the thoracic aortic arch. Mild pulmonary vascular congestion. No pneumothorax, large pleural effusion or overt pulmonary edema. Mild bibasilar atelectasis. Degenerative changes of the shoulders and spine. IMPRESSION: 1. Cardiomegaly with pulmonary vascular congestion. 2. Hiatal hernia. ACT 112: Negative or not required by law. The above report was generated using voice recognition software. It may contain grammatical, syntax o r spelling errors. Electronically signed by: Chris Wesley M.D. 03/27/2020 6:05 PM
[2020-03-27 18:27] LABS: C Reactive Protein 4.93 mg/dl (0-0.29); Thyroid Stimulating Hormone 4.64 uIu/ml (0.300-4.500)
[2020-03-27] MEDS ORDERED: ICU PROTOCOL FOR HYPERGLYCEMIA PRN (18:27)
[2020-03-27] MEDS ORDERED: DEXAMETHASONE SOD PHOSPHATE 10 MG in SYRINGE 0 ML IV SCH ×2 (18:27→19:00)
[2020-03-27] MEDS ORDERED: ACETAMINOPHEN 1,000 MG/100 ML VIAL IV ONE (18:38)
[2020-03-27 18:39] LABS: T4 Free Thyroxine 1.45 ng/dl (0.8-1.6)
[2020-03-27 18:54] LABS: Amphetamines+Metham, Urine Neg (Neg); Barbiturates, Urine Neg (Neg); Benzodiazepine, Urine Neg (Neg); Cocaine, Urine Neg (Neg); MDMA (Ecstacy), Urine Neg (Neg); Methadone, Urine Neg (Neg); Opiate, Urine Neg (Neg); Phencyclidine, Urine Neg (Neg)
[2020-03-27] MEDS ORDERED: VANCOMYCIN HCL 1,500 MG in SODIUM CHLORIDE 0.9% 500 ML IV ONE (19:00)
[2020-03-27] MEDS ORDERED: AMPICILLIN 2,000 MG in SODIUM CHLOR 0.9% AD-VAN 100 ML IV SCH (19:30)
[2020-03-27 19:33] LABS: BUN Creatinine Ratio 16.5 (10-20); Creatinine Clr Calc Pharmacy 28.6 ml/min; Est GFR (African American) 47.1; Est GFR (Non-African American) 40.7
[2020-03-27 19:34] LABS: Calcium 9.1 mg/dl (8.5-10.1)
[2020-03-27 19:35] LABS: D Dimer 4230 ug/L FEU (0-500)
[2020-03-27] MEDS ORDERED: DEXTROSE 5% IV SCH (20:00)
[2020-03-27] MEDS ORDERED: ACYCLOVIR SOD IV SCH (20:00)
--- NOTE | 2020-03-27 20:08 | Billing Data ---
Date of Service March 27, 2020 Coding Level of Care Code Critical Care ea addt'l 30 min Time Spent (min) 114
--- NOTE | 2020-03-27 20:20 | Electroencephalogram ---
EEG Procedure Note Date of Service March 27, 2020 Start / End Times Start Time: 1921 End Time: [address] Varela History 79 year old with acute encephalopathy and abnormal involuntary movements Home Medication List Home Medications Medication Instructions Recorded Confirmed Type cholecalciferol (vitamin D3) 2,000 unit PO QAM 05/05/18 03/27/20 History [Vitamin D3] multivitamin 1 tab PO QDD 05/05/18 03/27/20 History ezetimibe 10 mg tablet 10 mg PO QAM #90 tab 05/04/19 03/27/20 Rx calcium carbonate 600 mg calcium 600 mg PO BID tab 06/19/19 03/27/20 History (1,500 mg) tablet oxycodone-acetaminophen 5 mg-325 1 tab PO Q6H PRN #90 tab 06/21/19 03/27/20 Rx mg tablet ropinirole 0.25 mg tablet 0.25 mg PO HS #90 tab 07/03/19 03/27/20 Rx atorvastatin 80 mg tablet 80 mg PO HS #90 tab 07/16/19 03/27/20 Rx cyclobenzaprine 10 mg tablet 10 mg PO HS PRN #90 tab 07/16/19 03/27/20 Rx omeprazole 20 mg capsule,delayed 20 mg PO BID #180 cap 07/16/19 03/27/20 Rx release prednisone 5 mg tablet 7.5 mg PO DAILY #60 tab 08/15/19 03/27/20 Rx hydrochlorothiazide 25 mg tablet 25 mg PO DAILY #90 tab 09/27/19 03/27/20 Rx levothyroxine 75 mcg tablet 75 mcg PO QAM #90 tab 10/19/19 03/27/20 Rx ropinirole 2 mg tablet,extended 2 mg PO DAILY #90 tab 12/25/19 03/27/20 Rx release 24 hr diclofenac sodium 1 % topical gel 2 gm TOPICAL QID #100 gm 01/02/20 03/27/20 Rx tramadol 50 mg tablet 50 mg PO Q6H #100 tab 01/11/20 03/27/20 Rx hydroxychloroquine 200 mg tablet 200 mg PO BID #180 tab 01/31/20 03/27/20 Rx acetaminophen 1,000 mg PO Q6H PRN 03/06/20 03/27/20 History lisinopril 0 mg PO DAILY 03/27/20 03/27/20 History Inpatient Medication List Vancomycin HCl 1,500 mg/ (Sodium Chloride) 530 mls @ 200 mls/hr IV NOW ONE Stop: 03/27/20 21:38 Last Admin: 03/27/20 19:22 Dose: 200 mls/hr Documented by: [id number] Ampicillin Sodium 2,000 mg/ (Sodium Chloride) 100 mls @ 200 mls/hr IV Q6H JOSE LUIS; Protocol Stop: 04/06/20 19:29 Last Admin: 03/27/20 19:20 Dose: 200 mls/hr Documented by: [id number] Ceftriaxone Sodium 2,000 mg/ (Dextrose) 50 mls @ 100 mls/hr IV Q12H JOSE LUIS; Protocol Stop: 04/06/20 17:59 Last Infusion: 03/27/20 19:23 Dose: 0 mls/hr Documented by: [id number] Admin: 03/27/20 18:40 Dose: 100 mls/hr Documented by: [id number] Acyclovir Sodium 550 mg/ (Dextrose) 261 mls @ 250 mls/hr IV Q12H JOSE LUIS; Protocol Stop: 04/06/20 19:59 Last Admin: 03/27/20 19:22 Dose: 250 mls/hr Documented by: [id number] Dexamethasone Sodium Phosphate (10 mg/ Syringe) 2.5 mls @ 1 mls/min IV Q6H JOSE LUIS Stop: 03/31/20 18:59 Last Admin: 03/27/20 19:22 Dose: 1 mls/min Documented by: [id number] Discontinued Medications Benztropine Mesylate (Benztropine Mesylate 1 Mg/Ml 2 Ml Amp) 2 mg IV NOW STA Stop: 03/27/20 11:41 Last Admin: 03/27/20 11:59 Dose: 2 mg Documented by: [id number] Diphenhydramine HCl (Diphenhydramine Hcl 50 Mg/Ml Vial) Confirm Administered Dose 50 mg .ROUTE .STK-MED ONE Stop: 03/27/20 15:08 Last Admin: 03/27/20 15:28 Dose: 50 mg Documented by: [id number] Hydrocortisone Sodium Succinate (Hydrocortisone Sod Succinate 100 Mg/2 Ml Vial) 100 mg IV NOW STA Stop: 03/27/20 12:47 Last Admin: 03/27/20 13:18 Dose: 100 mg Documented by: [id number] Sodium Chloride (Nss 1000ml) 1,000 mls @ 999 mls/hr IV .Q1H1M ONE Stop: 03/27/20 11:28 Last Infusion: 03/27/20 13:17 Dose: 0 mls/hr Documented by: [id number] Admin: 03/27/20 11:42 Dose: 999 mls/hr Documented by: [id number] Lorazepam (Ativan) 0.5 mg in 1 mls @ 1 mls/min IV NOW STA Stop: 03/27/20 12:54 Last Admin: 03/27/20 13:18 Dose: 1 mls/min Documented by: [id number] Sodium Chloride (Nss 1000ml) 500 mls @ 999 mls/hr IV .Q31M ONE Stop: 03/27/20 14:05 Last Infusion: 03/27/20 16:24 Dose: 0 mls/hr Documented by: [id number] Admin: 03/27/20 14:30 Dose: 500 mls/hr Documented by: [id number] Lorazepam (Ativan) 1 mg in 2 mls @ 0.5 mls/min IV UD STA Stop: 03/27/20 14:07 Last Admin: 03/27/20 14:44 Dose: 0.5 mls/min Documented by: [id number] Levetiracetam 1,000 mg/ Sodium (Chloride) 110 mls @ 440 mls/hr IV NOW STA Stop: 03/27/20 14:21 Last Infusion: 03/27/20 15:00 Dose: 0 mls/hr Documented by: [id number] Admin: 03/27/20 14:45 Dose: 440 mls/hr Documented by: [id number] Sodium Chloride (Hypertonic Saline 3%) 50 mls @ 300 mls/hr IV .Q10M ONE Stop: 03/27/20 15:39 Last Admin: 03/27/20 16:25 Dose: Not Given Documented by: [id number] Lorazepam (Ativan) 1 mg in 2 mls @ 2 mls/min IV NOW STA Stop: 03/27/20 15:32 Last Admin: 03/27/20 15:32 Dose: 2 mls/min Documented by: [id number] Lorazepam (Ativan) 4 mg in 8 mls @ 4 mls/min IV NOW STA Stop: 08/20/20 16:30 Last Admin: 03/27/20 16:32 Dose: 4 mls/min Documented by: [id number] Acetaminophen (Ofirmev) 1,000 mg in 100 mls @ 400 mls/hr IV ONCE ONE Stop: 03/27/20 18:52 Last Admin: 03/27/20 19:21 Dose: 400 mls/hr Documented by: [id number] Metoclopramide HCl (Metoclopramide Hcl Inj 5 Mg/Ml 2 Ml Vial) 10 mg IV NOW STA Stop: 03/27/20 10:30 Last Admin: 03/27/20 11:42 Dose: 10 mg Documented by: [id number] Ondansetron HCl (Ondansetron Inj 2 Mg/Ml 2 Ml Vial) 4 mg IV NOW STA Stop: 03/27/20 11:42 Last Admin: 03/27/20 11:59 Dose: 4 mg Documented by: [id number] Ropinirole HCl (Ropinirole Hcl 0.25 Mg Tablet) 0.25 mg PO NOW STA Stop: 03/27/20 11:41 Last Admin: 03/27/20 12:03 Dose: 0.25 mg Documented by: [id number] Sodium Chloride (Sodium Chloride 3% 500 Ml Bag) Confirm Administered Dose 500 ml IV .[employer] ONE Stop: 03/27/20 15:47 Last Admin: 03/27/20 15:50 Dose: 150 ml Documented by: [id number] Cosigned by: [id number] Description This is a 21 electrode EEG with a single channel dedicated to limited EKG. The electrodes were placed in accordance with the International 10-20 system. Interpretation The predominant background activity consists of a very irregular 3-5 Hz activity, of up to 40 mV in amplitude,seen symmetrically distributed over all head regions bilaterally. This activity has no attenuation with eye-opening or other alerting procedures. superimposed upon the background activity was very small amplitude 12 Hz activity seen in all head regions, waxing and waning throughout the recording. Photic stimulation was performed and elicited no change in the background activity and no abnormal responses were seen. Hyperventilation was not performed on this bedside ICu EEG. A moderate amount of muscle and movement artifact activity contaminated the recording, yet did not hinder interpretation to any significant degree. Throughout the recording, no focal abnormalities or potentially epileptogenic discharges were seen. In summary, this EEG was very abnormal with severe generalized slowing. The superimposed diffuse alpha pattern is not normal and indicative of an "alpha coma" Clinical Correlation The absence of potentially epileptogenic activity does not exclude a seizure disorder, since interictally, EEGs can be normal. However the abnormalities seen on this EEG correlate with a severe generalized encephalopathy, which could be due to a wide variety of causes. [facility] EEG Procedure Codes Indication for Procedure (1) Acute encephalopathy: (2) Acute hyponatremia: Neurology Neurology: 60991 EEG include record awake & drowsy
[2020-03-27] MEDS ORDERED: PROPOFOL IV EMULSION 10 MG/ML 100 ML VIAL IV ONE (20:28)
[2020-03-27] MEDS ORDERED: RAPID SEQUENCE INDUCTION BAG ONE (20:29)
[2020-03-27] MEDS ORDERED: DEXTROSE 5% 100 ML IV ONE (20:42)
--- NOTE | 2020-03-27 20:55 | Procedure Note ---
Procedure Note Date of Service March 27, 2020 APC: Wallace Rose PA-C. Attending: Dr. Newby A time-out was completed verifying correct patient, procedure, site, positioning. Patient was evaluated and required intubation for airway protection. Sedative agent used: Etomidate Paralysis agent used: None Consent signed and placed on chart per physician supervising procedure. The patient was prepared in the appropriate fashion. Sedation was achieved utilizing Etomidate, per Dr. Newby administration. The patient was easily ventilated using [id number] to achieve adequate oxygenation. A 7.5 [place] endotracheal tube was placed use Video Laryngoscope to 23 cm at the lip. The stylette was removed and balloon was inflated with 10mL of air. Appropriate Colorimetric change was appreciated. Bilateral breath sounds were heard without air sounds in the abdomen. Dr. Newby was present for the entire procedure. Post Intubation Chest X-ray confirms placement without pneumothorax. ET Tube found to be slightly deep into the RIGHT main bronchus. The ET Tube was withdrawn 2 cm per RT. Patient tolerated the procedure well and there were no immediate complications. Supervising Physician Co-Signing Physician Notes I was present for the entirety of the procedure and supervised. Coding CPT Codes Resuscitation - Resuscitation: 46974 Endotracheal Intubation, emergency ([id number]) [facility] [place] Procedure Codes (Charges) Resuscitation Resuscitation: 24456 Endotracheal Intubation, emergency
[2020-03-27] MEDS ORDERED: FENTANYL BOLUS FROM BAG IV PRN (21:00)
[2020-03-27] MEDS ORDERED: STAT IV Infusion **Titration per Protocol STA (21:00)
[2020-03-27] MEDS ORDERED: fentaNYL DRIP 1,250 MCG/250 ML BAG IV PRN (21:00)
[2020-03-27] MEDS ORDERED: PROPOFOL BOLUS FROM BAG IV PRN (21:02)
--- NOTE | 2020-03-27 21:03 | XRay Report ---
XR chest 1V portable HISTORY: 79 years-old Female post intubation acute respiratory failure COMPARISON: Chest radiograph 03/27/2020 TECHNIQUE: Portable supine AP view of the chest FINDINGS: Endotracheal tube has been placed which terminates 9 mm below the level of the carey with distal tip in the region of the right mainstem bronchus. Calcified plaque of the thoracic aortic arch. Cardiome amelia. Pulmonary vascular congestion. Hiatal hernia. Mild bibasilar densities. Degenerative changes of the shoulders and spine. IMPRESSION: 1. Low-lying endotracheal tube with distal tip projecting over the expected location of the proximal right mainstem bronchus. Retraction of approximately 2.5 cm recommended. 2. Cardiomegaly with pulmonary vascular congestion. 3. Hiatal hernia. 4. Mild bibasilar opacities suggest probable atelectasis. ACT 112: Negative or not required by law. The above report was generated using voice recognition software. It may contain grammatical, syntax o r spelling errors. Electronically signed by: Chris Wesley M.D. 03/27/2020 9:01 PM
[2020-03-27] MEDS ORDERED: propofoL 1,000 MG/100 ML VIAL IV SCH (21:15)
--- NOTE | 2020-03-27 21:28 | Procedure Note ---
Procedure Note Date of Service March 27, 2020 Note A time-out was completed verifying correct patient, procedure, site, positioning, and special equipment if applicable. The patient was placed in the left lateral decubitus position in a semi- position with help from the nursing staff. The area was cleansed and draped in usual sterile fashion. 1% lidocaine was used anesthetize the surrounding skin area. A 20-gauge 3.5-inch spinal needle was placed in the L3-L4 interspace. Clear cerebral spinal fluid was obtained. Four tubes were filled with 2 mL of CSF. These were sent for the usual tests, including 1 tube to be held for further analysis if needed. The needle was withdrawn. No significant bleeding noted. Coding CPT Codes Lumbar Puncture - Lumbar Puncture, Diagnostic: 59406 Lumbar Puncture, Diagnostic ([id number]) [facility] [place] Codes (Charges) Lumbar Puncture Lumbar Puncture, Diagnostic: 24765 Lumbar Puncture, Diagnostic
--- NOTE | 2020-03-27 21:30 | Procedure Note ---
Procedure Note Date of Service March 27, 2020 Procedure: Lumbar Puncture Attending: Dr. Newby APC: Wallace Rose PA-C Indication: Altered Mental Status, Fever Anesthesia: Lidocaine 1% Written consent was obtained and on the chart per attending provider. A time-out was completed verifying correct patient, procedure, site, positionin g, and special equipment if applicable. The patient was placed in the LEFT lateral decubitus position in a semi- position with help from the nursing staff. The area was cleansed and draped in usual sterile fashion utilizing betadine. 1% lidocaine was used anesthetize the surrounding skin area. A spinal needle was attempted to be inserted into the L4 interspace. I was unsuccessful at obtaining spinal fluid. The procedure was terminated by myself and taken over by my attending physician. Please see his note for separate attempt. was present for the entire procedure Estimated Blood Loss: Minimal The patient tolerated the procedure well and there were no complications. Supervising Physician Co-Signing Physician Notes I was present for the entirety of the procedure and supervised. Coding CPT Codes Lumbar Puncture - Lumbar Puncture, Diagnostic: 83737 Lumbar Puncture, Anesthesia, Lumbar Region; Diagnostic/Therap ([id number]) [facility] Procedure Codes (Charges) Lumbar Puncture Lumbar Puncture, Diagnostic: 82575 Lumbar Puncture, Anesthesia, Lumbar Region; Diagnostic/Therap
[2020-03-27 21:48] LABS: BUN Creatinine Ratio 14.9 (10-20); Calcium 8.5 mg/dl (8.5-10.1); Creatinine Clr Calc Pharmacy 26.9 ml/min; Est GFR (African American) 43.8; Est GFR (Non-African American) 37.8
[2020-03-27 21:52] LABS: CSF Count Tube # 3
[2020-03-27 21:53] LABS: Appearance CSF Clear; CSF Xanthrochromic No xanthochromia; Color CSF Colorless; Red Blood Cell CSF (A) 2 /uL (0-); Red Blood Cell CSF (B) 1 /uL (0-); White Blood Cell CSF (A) 0 /uL (0-5); White Blood Cell CSF (B) 0 /uL (0-5)
[2020-03-27 22:12] LABS: Total Protein CSF 57.9 mg/dl (15-45)
[2020-03-27 22:13] LABS: Lactate CSF 2.4 mmol/L (0.6-2.2)
[2020-03-27 23:00] LABS: BUN Creatinine Ratio 17.6 (10-20); Calcium 8.2 mg/dl (8.5-10.1); Creatinine Clr Calc Pharmacy 33.1 ml/min; Est GFR (African American) 56.1; Est GFR (Non-African American) 48.4; Potassium 3.9 mmol/L (3.5-5.1)
[2020-03-27 23:13] LABS: Cryptococcus neoformans/ga PCR Not Detected (NotDetected); Cytomegalovirus PCR Not Detected (NotDetected); Enterovirus PCR Not Detected (NotDetected); Escherichia coli K1 PCR Not Detected (NotDetected); Haemophilius influenzae PCR Not Detected (NotDetected); Herpes Simplex Virus 1 PCR Not Detected (NotDetected); Herpes Simplex Virus 2 PCR Not Detected (NotDetected); Human Herpes Virus 6 PCR Not Detected (NotDetected); Human Parechovirus PCR Not Detected (NotDetected); Listeria monocytogenes PCR Not Detected (NotDetected); Neisseria meningitidis PCR Not Detected (NotDetected); Streptococcus agalactiae PCR Not Detected (NotDetected); Streptococcus pneumoniae PCR Not Detected (NotDetected); Varicella Zoster Virus PCR Not Detected (NotDetected)
[2020-03-28] MEDS ORDERED: GADOBUTROL 65ML VIAL IV ONE (00:20)
[2020-03-28 01:32] LABS: BUN Creatinine Ratio 17.7 (10-20); Calcium 8.5 mg/dl (8.5-10.1); Creatinine Clr Calc Pharmacy 31.6 ml/min; Est GFR (African American) 53.2; Est GFR (Non-African American) 45.9; Potassium 3.9 mmol/L (3.5-5.1)
[2020-03-28] MEDS ORDERED: DEXTROSE 5% 100 ML IV ONE ×2 (01:40→06:00)
[2020-03-28 05:01] LABS: Hematocrit (blood only) 33.2 % (37-47); Hemoglobin 11.7 g/dL (12.0-16.0); Immature Granulocytes # (auto) 0.06 K/uL (0.00-0.02); Immature Granulocytes % (auto) 0.6 %; Lymphocytes # (auto) 0.65 K/uL (1.2-3.4); Lymphocytes % (auto) 6.9 %; Mean Corpuscular Hemoglobin 30.7 pg (25-34); Mean Corpuscular Hgb Conc 35.2 g/dL (32-36); Mean Corpuscular Volume 87.1 fL (80-100); Mean Platelet Volume 7.8 fL (7.4-10.4); Monocytes # (auto) 0.46 K/uL (0.11-0.59); Monocytes % (auto) 4.9 %; Neutrophils # (auto) 8.22 K/uL (1.4-6.5); Neutrophils % (auto) 87.6 %; Platelet Count 239 K/uL (130-400); RDW Coefficient of Variation 12.9 % (11.5-14.5); RDW Standard Deviation 41.8 fL (36.4-46.3); Red Blood Count 3.81 M/uL (4.2-5.4); White Blood Count 9.39 K/uL (4.8-10.8)
[2020-03-28 05:54] LABS: BUN Creatinine Ratio 19.4 (10-20); Calcium 8.7 mg/dl (8.5-10.1); Creatinine Clr Calc Pharmacy 33.4 ml/min; Est GFR (African American) 56.7; Est GFR (Non-African American) 48.9; Magnesium 1.9 mg/dl (1.8-2.4); Phosphorus 4.6 mg/dl (2.5-4.9); Potassium 4.1 mmol/L (3.5-5.1)
[2020-03-28] MEDS ORDERED: STAT IV Infusion **Titration per Protocol STA (07:02)
[2020-03-28] MEDS ORDERED: DEXMEDETOMIDINE HCL 200 MCG in SODIUM CHLORIDE 0.9% 48 ML IV SCH (07:15)
--- NOTE | 2020-03-28 07:33 | Magnetic Resonance Report ---
Brain MRI WITH AND WITHOUT CONTRAST HISTORY: ?cerebellar cva s/s - vomiting, altered mental status TECHNIQUE: Multiplanar multisequence MRI of the brain was performed both before and after the intrave nous administration of contrast. COMPARISON STUDY: Head CT 03/27/2020 FINDINGS: There is no mass, hematoma, midline shift, or acute infarct. The paranasal sinuses are myrna r. The mastoid air cells are clear. The ventricles and sulci demonstrate mild age-related involutiona l changes. A few scattered foci of T2 hyperintensity seen within the periventricular and subcortical white matter are nonspecific but suggestive of mild microvascular ischemic changes. The major vascula r flow voids at the skull base are well-maintained. No abnormal enhancement. IMPRESSION: No acute intracranial abnormality. A few scattered foci of T2 hyperintensity seen within the perivent ricular and subcortical white matter are nonspecific but favor mild microvascular ischemic change. ACT 112: Negative or not required by law. Electronically signed by: Guillermo Tolbert M.D. 03/28/2020 7:32 AM
--- NOTE | 2020-03-28 07:59 | XRay Report ---
XR chest 1V portable HISTORY: Intubation. Follow-up. COMPARISON: Chest 03/27/2020. FINDINGS: The endotracheal tube terminates approximately 1.5 cm and the carey. There are low lung vo lumes. No pneumothorax. Left basilar densities persist. The heart is normal in size. Mild interstitia l thickening, unchanged. Hiatal hernia is again noted. IMPRESSION: 1. The endotracheal tube terminates impression 1.5 cm from the carey. This could be retracted by cecy roximately 1 cm. 2. Low lung volumes and left basilar densities persist. 3. Hiatus hernia. ACT 112: Negative or not required by law. Electronically signed by: Guillermo Tolbert M.D. 03/28/2020 7:58 AM
[2020-03-28] MEDS: ENOXAPARIN INJ 40 MG/0.4 ML SYR SQ SCH (08:14)
--- NOTE | 2020-03-28 08:19 | Critical Care Progress Note ---
Date of Service March 28, 2020 Assessment & Plan (1) Acute hyponatremia: 79 yo F w/ recent shoulder surgery here for vomiting found to have a sodium level of 121, patient developed choreiform movements while in the ED; she has a history of restless leg, she was febrile when she entered the ICU and differential includes 2/2 polypharmacy, hyponatremia leading to seizure/AMS, meningitis, serotonin syndrome. Neuro - - Medications: HOLDING: Flexeril, Plaquenil, and HCTZ (due to hyponatremia) - CT head w/ no acute intracranial abnormality - MRI with global volume loss, no signs of infarction - concern for meningitis initially given fevers and altered mental status - LP performed and fluid not consistent with infection given clear fluid, elevated protein to 57.9 mg/dl (could be related to inflammatory arthritis), no xanthochromia - follow CSF micro - started empiric Ceftriaxone 2,000 mg for 48 hours and if afebrile discontinue tomorrow - EEG w/ diffuse slowing and signs consistent with alpha coma - U tox. negative, glucose wnl. - was on propofol and fentanyl and transitioned to Presedex and then discontinued this Cardiac - - Tachycardic to 132 - ECHO ordered to further evaluate pulmonary congestion on CXR Respiratory - - mechanically ventilated on CPAP - CXR with cardiomegaly with pulmonary vascular congestion. - initial blood gas with primary respiratory alkalosis chronic with secondary metabolic acidosis and non gap metabolic acidosis GI - - Protonix 40 mg IV daily RENAL/LYTES - - moderate hyponatremia initially 121 has been corrected to 128 - u. osm 255 initially with urine sodium 39 - hyponatremia may be secondary to medications, Prednisone, Hydroxychloroquine, HCTZ, and Tramadol which may have contributed to the low sodium - Cr. 1.09 improved likely 2/2 fluids, continue to monitor w/ BMP - CK elevated at 4701 - - UA benign w/o LCE or nitrites ENDO - - slightly elevated TSH at 4.6 T4 nl. at 1.45 - ESR 27, CRP 4.93, likely 2/2 inflammatory arthritis HEME - - H&H 12.2 & 34.3 ID - - Concern for Meningitis given AMS, choreiform movements - MRSA negative - Continue Ceftriaxone - blood cultures drawn - Lactate 2.3 MSK - - CK elevated at 1704 - recheck at midnight to further evaluate for rhabdomyolysis LINES/IV ACCESS - [facility] Admission and Anticipated Discharge Date Admission Date: March 27, 2020 Subjective Unable to obtain initially due to patient being intubated and sedated. After the patient was extubated she talked with the neurologist about events that happened 3 years prior. Her primary doctor was in to see her and brought up that she had called with leg pain and then the day of admission she had called with nausea. In talking with the patient she is interactive but seems to be altered, unable to answer questions appropriately. Review of Systems Review of Systems: Unobtainable due to endotracheal tube Physical Exam Constitutional: - very sleepy after extubation Eyes: - difficulty opening eye - pupils reactive to light Neck: normal visual inspection Respiratory: - lungs clear to auscultation Gastrointestinal (Abdomen): soft nTTP Skin: no rashes, warm and dry Neurologic: - alert oriented to person and place but not to time (thought it was 2000) Results & Data Results & Data ([facility]) Vital Signs (Past 12 Hours) Vital Signs Temp Pulse Resp BP Pulse Ox 03/28/20 07:32 68 12 100 03/28/20 07:08 36.8 C 71 83/53 L 99 03/28/20 06:09 36.6 C 81 133/84 100 03/28/20 05:27 72 9 L 100 03/28/20 05:23 36.8 C 84 140/93 100 03/28/20 04:08 36.8 C 68 95/53 L 100 03/28/20 03:25 75 15 100 03/28/20 03:09 36.6 C 88 147/86 H 100 03/28/20 02:15 36.7 C 71 86/53 L 100 03/28/20 01:32 36.7 C 77 90/60 L 100 03/28/20 01:28 14 03/28/20 00:35 36.6 C 81 101/69 100 03/28/20 00:33 36.5 C 84 111/80 100 03/28/20 00:19 81 15 100 03/27/20 23:03 36.6 C 110/65 100 03/27/20 22:15 36.7 C 80 100/63 100 03/27/20 22:05 36.7 C 85 99/66 L 100 03/27/20 22:00 36.7 C 87 99 03/27/20 21:55 36.7 C 97 H 159/107 H 99 03/27/20 21:45 36.8 C 91 H 101/62 98 03/27/20 21:35 36.8 C 100 H 176/96 H 98 03/27/20 21:26 36.9 C 97 H 110/75 96 03/27/20 21:13 22.0 C L 98 H 132/101 H 97 03/27/20 21:02 36.7 C 108 H 55/17 L 99 03/27/20 21:00 36.7 C 98 H 98 03/27/20 20:59 36.7 C 99 H 98 03/27/20 20:57 36.7 C 100 H 133/73 99 03/27/20 20:55 36.7 C 102 H 132/82 98 03/27/20 20:53 36.7 C 103 H 171/81 H 98 03/27/20 20:50 36.7 C 118 H 158/133 H 99 03/27/20 20:47 36.7 C 102 H 148/75 H 98 03/27/20 20:45 36.7 C 103 H 125/79 99 03/27/20 20:44 119 H 22 100 03/27/20 20:43 36.7 C 107 H 161/96 H 100 03/27/20 20:39 36.6 C 130 H 206/141 H 100 03/27/20 20:35 36.7 C 128 H 174/74 H 03/27/20 20:31 36.6 C 116 H 180/77 H 03/27/20 20:28 36.7 C 122 H 198/120 H 85 L
[2020-03-28] MEDS: cefTRIAXone SODIUM 2,000 MG in DEXTROSE 5% 50 ML IV SCH (08:29)
--- NOTE | 2020-03-28 09:53 | Neurology Consultation ---
Date of Consultation March 28, 2020 Assessment & Plan (1) Acute encephalopathy: (2) Acute hyponatremia: (3) Drug induced akathisia: (4) Rheumatoid arthritis: (5) Restless leg syndrome: the patient has a background of rheumatoid/inflammatory arthritis on steroids and hydroxychloroquine. She also carries a diagnosis of restless leg syndrome on ropinirole. She had increased leg movements and nausea and vomiting for 24 hours prior to admission and was noted in the ER to have a sodium of 121 (normal for her is in the 130s ). In the emergency room, she was given metoclopramide for the nausea and vomiting. This made her legs and restlessness in general worse. She received multiple different medications including benzodiazepines, diphenhydramine, Solu- Cortef, Ropinirole, and Cogentin. her mental status became worse and her movements were quite significant dyskinesias/akathisia. This morning her sodium is 128 and she is calm with a very normal mental status all things considered. She has no focal neurologic findings or meningeal signs. Lumbar puncture showed no signs of DEPARTMENT MGR infection or inflammation. The mildly elevated protein can be seen in individuals with significant rheumatoid arthritis or other chronic inflammatory disease. MRI of the brain showed no stroke or significant abnormalities. Hyponatremia was likely the trigger for all of her symptoms compound by multiple different medications in the emergency room. Even though the sodium was only as low as 121 this is a enough of a change, if done rapidly enough, to produce encephalopathy, focal neurologic findings, or even abnormal involuntary movements. EEG showed no seizure activity. In addition, I do not know how much narcotics she was taking at home. This could affect her mental status obviously. Recommendations: 1. try to keep off all DEPARTMENT MGR acting medications including benzodiazepines, levetiracetam, benztropine, narcotic pain medication, and diphenhydramine. 2. Continue on her usual outpatient medications otherwise. 3. observe over the next 12-24 hours. 4. I see no reason for additional neurologic testing at this time. Overall, I spent a total of 110 minutes with this case including review of records, review of MRI films, direct evaluation the patient at bedside, and discussing the case with the patient and RN at bedside and Dr. Newby, including differential diagnosis and treatment options. History of Present Illness Reason for Consultation: a 79-year-old, who I was asked to see at the request of Dr. Oswald, for neurologic consultation regarding acute encephalopathy and abnormal involuntary movements. Requesting Physician: Dr. Oswald Attending Physician: Izaiah Paez History of Present Illness patient has a longstanding history of rheumatoid / inflammatory arthritis on prednisone 7.5 milligrams daily and hydroxychloroquine 200 milligrams twice daily. In addition she has some chronic renal disease and a diagnosis of restless leg syndrome for which she takes ropinirole 2 milligram ER daily +0.2 5 milligrams IR at bedtime. The patient has a history of Hodgkin's lymphoma in 2000 post chemotherapy and radiation. The patient had a right shoulder arthroscopic surgery March 18 and has been on some oxycodone and tramadol since. I am not certain of the doses she was taken. Patient had some nausea and vomiting and was noted by her daughter that her restless legs syndrome symptoms were much worse -both of which were worse over the last 24 hours prior to admission. she arrived to the emergency room March 27 at 1012 with a temperature 36.6, pulse of 80, respiratory rate 16, blood pressure 135/69, and O2 saturation 98 percent. She had no focal neurologic findings but had restless moving legs. Her mental status was fairly good when she 1st arrived to the emergency room but she quickly became confused. She was given 10 milligrams metoclopramide IV and then 0.25 milligrams of Requip. She was also given Cogentin 2 milligrams IV followed by 0.5 milligrams Ativan IV. She had worse movements of her limbs and more confusion. Benadryl 50 milligrams IV was given but this did not help her movements either. CBC was unremarkable. Sodium was 121, BUN 21 and creatinine 1.22. CK was 198. over the next 15 hours this increased to 4701. she was given sodium and this morning her sodium was 128. Covid-19 was negative, ESR 27 and TSH 4.6. Lactate was 2.3 and CRP 4.93. Urine drug screen and urinalysis were unremarkable. urine osmolality was low at 214. CT scan of the head was unremarkable. EEG was remarkable for a severe encephalopathy and a "alpha coma" type pattern, yesterday evening. No focal findings or potentially epileptogenic discharges. MRI of the brain showed no acute stroke. She had a few nonspecific old small- vessel ischemic changes in the white matter. Lumbar puncture was performed and showed no white cells, 2 red cells, no xanthochromia, and a protein of 57.9. Gram stain and grow so far has been negative. CSF panel for infectious organisms was unremarkable although CSF Lyme is pending. The patient ended up being intubated overnight been ordered to be sedated for the lumbar puncture but this morning was extubated. When I arrive at the patient's bedside at 1000, the patient was awake and speaking to me. Her throat was sore and she felt tired but otherwise was in no pain or had any feelings of weakness or numbness in any particular arm or leg. She had no headache. She was not dizzy. Allergies Allergy/AdvReac Type Severity Reaction Status Date / Time No Known Drug Allergies Allergy Verified 03/27/20 11:18 Home Medications Home Medications Medication Instructions Recorded Confirmed Type cholecalciferol (vitamin D3) 2,000 unit PO QAM 05/05/18 03/27/20 History [Vitamin D3] multivitamin 1 tab PO QDD 05/05/18 03/27/20 History ezetimibe 10 mg tablet 10 mg PO QAM #90 tab 05/04/19 03/27/20 Rx calcium carbonate 600 mg calcium 600 mg PO BID tab 06/19/19 03/27/20 History (1,500 mg) tablet oxycodone-acetaminophen 5 mg-325 1 tab PO Q6H PRN #90 tab 06/21/19 03/27/20 Rx mg tablet ropinirole 0.25 mg tablet 0.25 mg PO HS #90 tab 07/03/19 03/27/20 Rx atorvastatin 80 mg tablet 80 mg PO HS #90 tab 07/16/19 03/27/20 Rx cyclobenzaprine 10 mg tablet 10 mg PO HS PRN #90 tab 07/16/19 03/27/20 Rx omeprazole 20 mg capsule,delayed 20 mg PO BID #180 cap 07/16/19 03/27/20 Rx release prednisone 5 mg tablet 7.5 mg PO DAILY #60 tab 08/15/19 03/27/20 Rx hydrochlorothiazide 25 mg tablet 25 mg PO DAILY #90 tab 09/27/19 03/27/20 Rx levothyroxine 75 mcg tablet 75 mcg PO QAM #90 tab 10/19/19 03/27/20 Rx ropinirole 2 mg tablet,extended 2 mg PO DAILY #90 tab 12/25/19 03/27/20 Rx release 24 hr diclofenac sodium 1 % topical gel 2 gm TOPICAL QID #100 gm 01/02/20 03/27/20 Rx tramadol 50 mg tablet 50 mg PO Q6H #100 tab 01/11/20 03/27/20 Rx hydroxychloroquine 200 mg tablet 200 mg PO BID #180 tab 01/31/20 03/27/20 Rx acetaminophen 1,000 mg PO Q6H PRN 03/06/20 03/27/20 History lisinopril 0 mg PO DAILY 03/27/20 03/27/20 History Patient History Medical History Acid reflux Chronic kidney disease 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 Dysuria Hiatal hernia History of Hodgkin's lymphoma S/P RADIATION/CHEMO (2000) History of pelvic fracture Hyperlipidemia Hypertension Hypothyroidism Mixed stress and urge urinary incontinence Restless leg syndrome Rheumatoid arthritis ON PLAQUENIL AND CHRONIC PREDNISONE 7.5MG DAILY Sciatica Scoliosis Surgical History H/O foot surgery 2ND RT TOE REMOVED History of bilateral cataract extraction RIGHT CATARACT EXTRACTION WITH IOL= 04/05/18= MAC SEDATION AT [facility] History of colonoscopy History of gynecologic surgery ANTERIOR AND POSTERIOR REPAIR - colporrhaphy (for pelvic relaxation) History of removal of cyst HEAD (BENIGN) History of tonsillectomy History of tooth extraction History of total knee replacement RT History of urologic surgery [place]RE[place]- [place] [facility] [place] Family History Mother , age 80 Cardiac disorder Family history of lung cancer Brother Diabetes Family history of lung cancer Family history of diabetes mellitus Daughter Breast cancer Father , age 57 Cardiac disorder Grandmother Diabetes Aunt Ovarian cancer paternal aunt Grandmother (Paternal) Family history of diabetes mellitus Denies family history of Colon cancer Colorectal cancer Social History Smoking Status: Never smoker Cigarettes Per Day: QUIT + 30 YEARS AGO; Second Hand Exposure: No; Hx Alcohol Use: Yes Alcohol type: wine Alcohol Intake Frequency Comment: Social Preferred Language: Tanzanian Communication Ability: Unable Communication Ability Comment: Non-verbal, confused at this time. 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 [employer] Feels Safe at Home: Yes Sunscreen Use: Yes (occasionally) Review of Systems Review of Systems: review of systems is limited due to her fatigue and recent extubation but she gives a fairly good answer to most questions Constitutional: + fatigue and + weakness; no fever Eyes: no diplopia, no eye pain and no worsening vision Ear, Nose, Mouth, Throat: + hoarseness; no hearing loss and no dizziness Respiratory: no cough and no dyspnea Cardiovascular: no chest pain, no palpitations and no lightheadedness Gastrointestinal: no abdominal pain, no nausea and no vomiting Genitourinary: no dysuria, no urinary frequency and no urinary incontinence Musculoskeletal: no back pain, no neck pain, no radicular pain, no joint pain and no myalgia Integumentary: no rash and no lesions Neurologic: + generalized weakness; no localized weakness, no tingling, no numbness, no tremor(s), no abnormal movements, no headache(s), no abnormal speech, no confusion and no memory loss Psychiatric: no depression, no irritability, no anxiety, no difficulty concentrating, no confusion and no hallucinations Endocrine: + fatigue; no flushing Hematologic / Lymphatic: no easy bleeding and no easy bruising Allergy / Immunological: no urticaria and no problem reported Exam (Neuro) Physical Exam: The patient is right-handed. The patient is awake, and fairly alert/attentive. Speech is slow and soft, without any obvious aphasia or dysarthria. Mentation and thought processes are intact, with orientation to person, place and time, and normal fund of knowledge. she recognized me and told me that she remembers seeing me 2 or 3 years ago when I gave a lecture at the [facility]. She told me the topic of the lecture as well. Attention and concentration are reasonable for condition. Mood and affect are normal and appropriate. General appearance and grooming are nor mal. Short and long-term memory are intact to conversation. The discs are sharp with positive venous pulsations bilaterally. There are no exudates, hemorrhages, or blood vessel changes seen. Pupils are 3 mm bilaterally and reactive to light. Extraocular eye muscles are intact without nystagmus. Visual acuity and visual anna seem normal grossly to confrontation. There are no deficits to sensation in the face in all 3 distributions of the fifth cranial nerve bilaterally. Corneal reflexes are positive bilaterally. Facial strength and symmetry was normal bilaterally. Hearing seems normal to wh isper and finger rub bilaterally. Palate moves well without asymmetry. There is normal sternocleidomastoid and trapezius (shoulder shrug) strength bilaterally. Tongue is midline with good strength bilaterally. Neck has a full range of motion without discomfort. There are no cervical bruits bilaterally. There are no cranial or ocular bruits. Heart is without murmur. There is a regular rhythm and rate. Cervical, thoracic, and lumbar spine are nontender to palpation. Gait is not tested. She cannot sit up in bed either. With outstretched arms there is no drift on the left. The right upper extremity is limited because her hand is in a sling. There are no resting, postural, or action tremors. There is no ataxia with finger to nose testing. There is good facility in the hands. No other abnormal involuntary movements are noted. Motor strength is 5/5 diffusely in the left upper extremity, including deltoids, biceps, triceps, brachioradialis, wrist flexors and extensors, instructional material director, and intr insic hand muscles. right upper extremity has good strength distally in the hand but proximally is not tested because her arm is in a sling. Motor strength is 5/5 diffusely in the legs bilaterally including hip flexors, quadriceps, hamstrings, gastrocnemius, tibialis anterior, tibialis posterior, and Peroneii muscles. Toe extensors are normal and there is good bulk in the extensor digitorum brevis muscles bilaterally. The limbs have good tone without rigidity or spasticity. There is no atrophy noted in the muscles. Muscle bulk is normal, there is no tenderness to palpation, no myotonia to percussion, and no fasciculations seen. Sensory examination is intact to touch and pin throughout all 4 limbs diffusely. Reflexes are 2/4 in the biceps, triceps, brachioradialis, quadriceps, and Achill es tendons bilaterally. There is no clonus bilaterally. Toes are Withdrawal/upgoing with plantar stimulation bilaterally. Peripheral pulses are present and of normal quality distally in all 4 limbs. There is no peripheral edema noted in the limbs. Results & Data ([facility]) Vital Signs (Past 12 Hours) Vital Signs Temp Pulse Resp BP Pulse Ox 03/28/20 09:01 36.9 C 78 16 135/70 97 03/28/20 08:38 36.9 C 70 109/63 99 03/28/20 08:00 36.9 C 67 100 03/28/20 07:38 36.8 C 68 92/62 L 99 03/28/20 07:32 68 12 100 03/28/20 07:08 36.8 C 71 83/53 L 99 03/28/20 06:09 36.6 C 81 133/84 100 03/28/20 05:27 72 9 L 100 03/28/20 05:23 36.8 C 84 140/93 100 03/28/20 04:08 36.8 C 68 95/53 L 100 03/28/20 03:25 75 15 100 03/28/20 03:09 36.6 C 88 147/86 H 100 03/28/20 02:15 36.7 C 71 86/53 L 100 03/28/20 01:32 36.7 C 77 90/60 L 100 03/28/20 01:28 14 03/28/20 00:35 36.6 C 81 101/69 100 03/28/20 00:33 36.5 C 84 111/80 100 03/28/20 00:19 81 15 100 03/27/20 23:03 36.6 C 110/65 100 03/27/20 22:15 36.7 C 80 100/63 100 03/27/20 22:05 36.7 C 85 99/66 L 100 03/27/20 22:00 36.7 C 87 99 03/27/20 21:55 36.7 C 97 H 159/107 H 99 03/27/20 21:45 36.8 C 91 H 101/62 98 03/27/20 21:35 36.8 C 100 H 176/96 H 98 03/27/20 21:26 36.9 C 97 H 110/75 96 Diagnostic Findings Brain MRI WITH AND WITHOUT CONTRAST HISTORY: ?cerebellar cva s/s - vomiting, altered mental status TECHNIQUE: Multiplanar multisequence MRI of the brain was performed both before and after the intravenous administration of contrast. COMPARISON STUDY: Head CT 03/27/2020 FINDINGS: There is no mass, hematoma, midline shift, or acute infarct. The paranasal sinuses are clear. The mastoid air cells are clear. The ventricles and sulci demonstrate mild age-related involutional changes. A few scattered foci of T2 hyperintensity seen within the periventricular and subcortical white matter are nonspecific but suggestive of mild microvascular ischemic changes. The major vascular flow voids at the skull base are well-maintained. No abnormal enhancement. IMPRESSION: No acute intracranial abnormality. A few scattered foci of T2 hyperintensity seen within the periventricular and subcortical white matter are nonspecific but favor mild microvascular ischemic change. ACT 112: Negative or not required by law. Electronically signed by: Guillermo Tolbert M.D. 03/28/2020 7:32 AM PG Care Time/CCT Total # of Minutes Spent Total Time Spent with Patient: Total time spent is greater than 50% in coordination of care (as documented) at patient's floor/unit and/or counseling patient: Coding Level of Care Code 05105 Initial Inpt Care Lvl 3 Diagnoses Acute encephalopathy G93.40 Acute hyponatremia E87.1 Drug induced akathisia G25.71 Rheumatoid arthritis M06.9 Restless leg syndrome G25.81 Time Spent (min) 110 Comment Add [id number] to the [id number]
[2020-03-28 10:18] LABS: BUN Creatinine Ratio 16.9 (10-20); Calcium 8.7 mg/dl (8.5-10.1); Creatinine Clr Calc Pharmacy 27.9 ml/min; Est GFR (Non-African American) 42.3; Potassium 3.9 mmol/L (3.5-5.1)
[2020-03-28] MEDS ORDERED: Nursing to Pharmacy Communication SCH (10:30)
[2020-03-28] MEDS ORDERED: PANTOprazole 40 MG in SYRINGE 0 ML IV SCH (11:00)
[2020-03-28 11:37] LABS: iSTAT Allen Test Pass; iSTAT Art Bld Gas pCO2 Correct 35 mmHg (35-46); iSTAT Art Bld Gas pH Corrected 7.369 (7.35-7.45); iSTAT Arterial Blood Gas HCO3 20 meg/L (19-24); iSTAT Arterial Blood Gas pCO2 36 mmHg (35-46); iSTAT Arterial Blood Gas pH 7.37 (7.35-7.45); iSTAT Arterial Blood Gas pO2 102 mmHg (80-95); iSTAT Arterial Blood Gas pO2 C 100; iSTAT Carbon Dioxide 21 mmol/L (24-31); iSTAT FiO2 30 %; iSTAT Hematocrit 33 % (37-47); iSTAT Hemoglobin 11.2 g/dl (12.0-16.0); iSTAT Potassium 3.9 mmol/L (3.3-5.0); iSTAT Site R Brachial; iSTAT Sodium 126 mmol/L (135-144)
[2020-03-28 11:37] LABS: iSTAT Allen Test Pass; iSTAT Arterial Blood Gas HCO3 20 meg/L (19-24); iSTAT Arterial Blood Gas pCO2 35 mmHg (35-46); iSTAT Arterial Blood Gas pH 7.36 (7.35-7.45); iSTAT Arterial Blood Gas pO2 94 mmHg (80-95); iSTAT Carbon Dioxide 21 mmol/L (24-31); iSTAT FiO2 30 %; iSTAT Site R Radial
--- NOTE | 2020-03-28 12:19 | Critical Care Progress Note ---
Date of Service March 28, 2020 Assessment & Plan (1) Acute metabolic encephalopathy: 79-year-old female with a history of lymphoma, retroperitoneal fibrosis, inflammatory arthropathy and severe restless leg syndrome presenting to the hospital due to nausea and vomiting and was found to have metabolic encephalopathy. She did receive several doses of Ativan in the emergency department which may have contributed to her worsening respiratory status and lethargy. She was given Ativan due to concerns of seizures and because her chloroform movements and dystonic movements were impeding the ability to provide her adequate care. Yesterday, due to worsening respiratory status we elected to intubate the patient and perform a lumbar puncture. Lumbar puncture did not reveal any evidence of infection thus far. Vancomycin, ampicillin and acyclovir were discontinued. She received a hypertonic bolus of 3% saline yesterday with improvement. She received 300 mL total of free water yesterday as her sodium was creeping up too quickly. It is now moving upwards appropriately. Our goal is to increase sodium by 8 to 10 mEq in a 24-hour span. We appear to be reaching that goal at this point. I suspect that her encephalopathy was likely multifactorial related to medication she received in the emergency department including Ativan, Reglan and possibly worsening hyponatremia after normal saline fluid boluses. 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 Her urine sodium was very elevated along with her urine osmolality. At this time, we are going to perform fluid restriction and allow her sodium to come up naturally. Avoid medications that could precipitate SIADH at this time. We will tentatively watch her in the ICU as she is having periodic episodes of hypotension. (2) Acute hyponatremia: (3) Inflammatory polyarthritis: (4) Acute hypoxemic respiratory failure: Admission and Anticipated Discharge Date Admission Date: March 27, 2020 Subjective Patient went is on a spontaneous breathing trial since 5:30 AM. She is doing very well on the spontaneous breathing trial. We elected to extubate her. She is following commands and speaking sentences. She is a bit lethargic. She is off Precedex. No fevers overnight. Review of Systems Review of Systems: All systems reviewed & are unremarkable except as noted in HPI & below Physical Exam Constitutional: WD/WN, vitals as above Eyes: PERRL, conjunctivae normal, anicteric sclerae ENMT: external ear and nose normal, oropharynx normal Ears: + hearing imp airment Neck: normal visual inspection Respiratory: normal respiratory effort Clear to auscultation bilaterally. Cardiovascular: RRR, no murmur, no edema Gastrointestinal (Abdomen): normal bowel sounds, soft, nontender, no hepatosplenomegaly Musculoskeletal: no cyanosis or clubbing, extremities motor strength 5/5 Skin: no rashes, warm and dry Neurologic: PERRL, EOMI, accommodation nl, no face palsy, no dysarthria Occasionally taking on her legs. Otherwise nonfocal. Psychiatric: Orientation: alert, oriented to person, oriented to place and cooperative Results & Data Results & Data ([facility]) Vital Signs (Past 12 Hours) Vital Signs Temp Pulse Resp BP Pulse Ox 03/28/20 11:18 98.6 F 71 13 94/71 L 92 03/28/20 10:07 98.8 F 71 20 91/49 L 95 03/28/20 10:00 98.6 F 67 15 96 03/28/20 09:01 98.4 F 78 16 135/70 97 03/28/20 08:38 98.4 F 70 109/63 99 03/28/20 08:00 98.4 F 67 100 03/28/20 07:38 98.2 F 68 92/62 L 99 03/28/20 07:32 68 12 100 03/28/20 07:08 98.2 F 71 83/53 L 99 03/28/20 06:09 97.9 F 81 133/84 100 03/28/20 05:27 72 9 L 100 03/28/20 05:23 98.2 F 84 140/93 100 03/28/20 04:08 98.2 F 68 95/53 L 100 03/28/20 03:25 75 15 100 03/28/20 03:09 97.9 F 88 147/86 H 100 03/28/20 02:15 98.1 F 71 86/53 L 100 03/28/20 01:32 98.1 F 77 90/60 L 100 03/28/20 01:28 14 03/28/20 00:35 97.9 F 81 101/69 100 03/28/20 00:33 97.7 F 84 111/80 100 03/28/20 00:19 81 15 100 I reviewed vital signs, labs and imaging Coding Level of Care Code Critical Care 1st 30-74 mins Diagnoses Acute metabolic encephalopathy G93.41 Acute hyponatremia E87.1 Inflammatory polyarthritis M06.4 Acute hypoxemic respiratory failure J96.01 Time Spent (min) 51
[2020-03-28 12:51] LABS: BUN Creatinine Ratio 18.2 (10-20); Calcium 8.7 mg/dl (8.5-10.1); Creatinine Clr Calc Pharmacy 27.2 ml/min; Est GFR (African American) 47.6; Est GFR (Non-African American) 41.1; Potassium 3.9 mmol/L (3.5-5.1)
--- NOTE | 2020-03-28 13:36 | XCELERA ---
[id number] \\[id number]
[2020-03-28] MEDS: predniSONE 5 MG TAB PO SCH (14:14)
[2020-03-28] MEDS: LEVOTHYROXINE SODIUM 75 MCG TABLET PO SCH (14:14)
[2020-03-28] MEDS ORDERED: VANCOMYCIN HCL 1,000 MG in SODIUM CHLORIDE 0.9% 250 ML IV SCH (16:00)
[2020-03-28] MEDS: ROPINIROLE HCL 1 MG TABLET PO SCH (20:03)
--- NOTE | 2020-03-28 21:43 | Hospitalist Progress Note ---
Date of Service March 28, 2020 Assessment & Plan (1) Drug induced akathisia: I appreciate input from Neuro (below in bold). It appears mostly her change of mental status was iatrogenic. Will transfer her out of the ICU. Doubt meningiits due to low WBC. will conitnue to monitor her for 24 hours. The patient has a background of rheumatoid/inflammatory arthritis on steroids and hydroxychloroquine. She also carries a diagnosis of restless leg syndrome on ropinirole. She had increased leg movements and nausea and vomiting for 24 hours prior to admission and was noted in the ER to have a sodium of 121 (normal for her is in the 130s ). In the emergency room, she was given metoclopramide for the nausea and vomiting. This made her legs and restlessness in general worse. She received multiple different medications including benzodiazepines, diphenhydramine, Solu-Cortef, Ropinirole, and Cogentin. her mental status became worse and her movements were quite significant dyskinesias/akathisia. This morning her sodium is 128 and she is calm with a very normal mental status all things considered. She has no focal neurologic findings or meningeal signs. Lumbar puncture showed no signs of [employer] infection or inflammation. The mildly elevated protein can be seen in individuals with significant rheumatoid arthritis or other chronic inflammatory disease. MRI of the brain showed no stroke or significant abnormalities. Hyponatremia was likely the trigger for all of her symptoms compound by multiple different medications in the emergency room. Even though the sodium was only as low as 121 this is a enough of a change, if done rapidly enough, to produce encephalopathy, focal neurologic findings, or even abnormal involuntary movements. EEG showed no seizure activity. In addition, I do not know how much narcotics she was taking at home. This could affect her mental status obviously. (2) Acute encephalopathy: Same differential as above and below. (3) Acute hyponatremia: NSS approx 1.2L given in the ER. Hypertonic saline 3% 100ml bolus recommended by log peeler. Repeat BMP taken during hypertonic saline appears to be increased. Based on history I suspect she has hypovolemic hyponatremic hyponatremia due to hydrochlorothiazide use and nausea and vomiting. Since second BMP taken during hypertonic saline infusion unclear whether initial normal saline made this worse may represent SIADH - will need CT head as above Given history of nausea and vomiting some concern of adrenal insufficiency on admission and given 100 mg IV hydrocortisone however patient was not hypotensive (see below). TSH pending Urine osmolality and sodium added to prior sample (4) Acute adrenal insufficiency: Concern for this admission due to hyponatremia, nausea, vomiting. However no hypotension. Random cortisol WNL. Will defer further hydrocortisone to ICU team. (5) Increased anion gap metabolic acidosis: After restless movements for multiple hours. Repeat BMP with anion gap metabolic acidosis. Suspect lactic acid induced with excessive movements. Will defer further IV fluids to ICU team. (6) Hypercholesterolemia: Holding atorvastatin with acute metabolic encephalopathy (7) Hypothyroidism: resumed home levothyroxine medication (8) Rheumatoid arthritis: On hydroxychloroquine and prednisone chronically. Rheumatoid vs. inflammatory polyarthritis. (9) Hx of Hodgkin's disease: Notable history of this (10) Hypertension: Holding antihypertensives (11) DVT prophylaxis: Deferred prior to CT head Admission and Anticipated Discharge Date Admission Date: March 27, 2020 Subjective 79 yo female is drowsy. Patient does not report significant complaints today. Family is not at bedside. Review of Systems Review of Systems: All systems reviewed & are unremarkable except as noted in HPI & below Physical Exam Physical Exam: Constitutional: well developed Eyes: + anicteric sclerae Respiratory: CTA/ B/L Cardiovascular: Rate/Rhythm: regular rhythm and + tachycardic Gastrointestinal (Abdomen): Percussion/Palpation: abdomen soft Neurologic: Drowsy. Psychiatric: Orientation: oriented to person. Results & Data Results & Data ([facility]) Vital Signs (Past 12 Hours) Vital Signs Temp Pulse Resp BP Pulse Ox 03/28/20 19:28 81 03/28/20 19:20 36.7 C 78 18 113/69 93 03/28/20 17:00 93 H 23 128/57 L 95 03/28/20 16:00 83 19 100/59 L 96 03/28/20 15:02 37.5 C 89 22 115/66 99 03/28/20 14:24 37.6 C H 86 21 96/56 L 98 03/28/20 14:00 83 12 94 03/28/20 13:01 37.3 C 77 13 109/55 L 94 03/28/20 12:00 37.1 C 85 18 114/56 L 98 03/28/20 11:18 37.0 C 71 13 94/71 L 92 08/21/20 10:07 37.1 C 71 20 91/49 L 95 03/28/20 10:00 37.0 C 67 15 96 PG Care Time/CCT Total # of Minutes Spent Total Time Spent with Patient: Total time spent is greater than 50% in coordination of care (as documented) at patient's floor/unit and/or counseling patient: Coding Level of Care Code 90171 Subseq Hosp Care Lvl 3 Diagnoses Drug induced akathisia G25.71 Acute encephalopathy G93.40 Acute hyponatremia E87.1 Acute adrenal insufficiency E27.40 Increased anion gap metabolic acidosis E87.2 Hypercholesterolemia E78.00 Hypothyroidism E03.9 Rheumatoid arthritis M06.9 Hx of Hodgkin's disease Z85.71 Hypertension I10 DVT prophylaxis Z29.9 Time Spent (min) 35
[2020-03-29] MEDS: LEVOTHYROXINE SODIUM 75 MCG TABLET PO SCH (06:43)
[2020-03-29] MEDS: ACETAMINOPHEN 500 MG TAB PO PRN ×2 (06:44→18:24)
[2020-03-29] MEDS: predniSONE 5 MG TAB PO SCH (08:15)
[2020-03-29] MEDS: ENOXAPARIN INJ 40 MG/0.4 ML SYR SQ SCH (08:15)
[2020-03-29] MEDS: cefTRIAXone SODIUM 2,000 MG in DEXTROSE 5% 50 ML IV SCH (08:15)
[2020-03-29 11:44] LABS: Basophils # (auto) 0.01 K/uL (0-0.2); Basophils % (auto) 0.1 %; Eosinophils # (auto) 0.02 K/uL (0-0.5); Eosinophils % (auto) 0.2 %; Hematocrit (blood only) 30.7 % (37-47); Hemoglobin 10.8 g/dL (12.0-16.0); Immature Granulocytes # (auto) 0.07 K/uL (0.00-0.02); Immature Granulocytes % (auto) 0.6 %; Lymphocytes # (auto) 0.94 K/uL (1.2-3.4); Lymphocytes % (auto) 8.3 %; Mean Corpuscular Hemoglobin 30.7 pg (25-34); Mean Corpuscular Hgb Conc 35.2 g/dL (32-36); Mean Corpuscular Volume 87.2 fL (80-100); Mean Platelet Volume 7.8 fL (7.4-10.4); Monocytes # (auto) 0.77 K/uL (0.11-0.59); Monocytes % (auto) 6.8 %; Neutrophils # (auto) 9.45 K/uL (1.4-6.5); Platelet Count 251 K/uL (130-400); RDW Coefficient of Variation 13.2 % (11.5-14.5); RDW Standard Deviation 42.7 fL (36.4-46.3); Red Blood Count 3.52 M/uL (4.2-5.4); White Blood Count 11.26 K/uL (4.8-10.8)
[2020-03-29 12:07] LABS: Albumin Level 2.9 gm/dl (3.4-5.0); BUN Creatinine Ratio 17.7 (10-20); Calcium 8.5 mg/dl (8.5-10.1); Creatinine Clr Calc Pharmacy 30.3 ml/min; Est GFR (African American) 54.3; Est GFR (Non-African American) 46.8; Potassium 3.5 mmol/L (3.5-5.1); Uric Acid 7.8 mg/dl (2.6-7.2)
[2020-03-29 12:10] LABS: Albumin Globulin Ratio 0.9 (0.9-2); Bilirubin,Total 0.3 mg/dl (0.2-1); Globulin 3.1 gm/dl (2.5-4.0)
--- NOTE | 2020-03-29 12:24 | Nephrology Consultation ---
Date of Consultation March 29, 2020 Assessment & Plan (1) Acute hyponatremia: Hyponatremia in the setting nausea, vomiting, recent surgery, thiazide diuretics. No evidence of adrenal insufficiency, urine osmolality relatively low. History of repeated episode of mild hyponatremia with hydr ochlorothiazide, Prednisone and Gabapentin. -- Sodium seems to have stabilized and slowly improving, last sodium was 127. continue to monitor with serum sodium every 6 hours, avoid any further IV fluid. Expect sodium to slowly improve -- keep off of thiazide diuretics in future, continue lisinopril and increase dose as needed --check renal panel in am --DC rdz catheter Will follow Thank you for allowing me to participate in your patient's care. It was a pleasure to see alanna (2) Chronic renal insufficiency: (3) Hypertension: History of Present Illness Reason for Consultation: allacute hyponatremia Attending Physician: Izaiah Paez History of Present Illness Alanna Brannon is a 79-year-old female with history of recent right shoulder surgery, admitted to the hospital with hyponatremia and acute change in mental status. nephrology consult was requested to manage hyponatremia. electronic medical records are reviewed in detail during patient's visit and had discussion with patient's daughter was at bedside. Alanna initially came to the ER with nausea and vomiting Which started the day prior to admission. She is recently been taking oxycodone after recent right shoulder surgery on 03/18/20. No associated abdominal pain, melena, bright red blood in stool or change in bowels. According to the report, on admission she was otherwise awake, alert and oriented. In ER she was initially treated with metoclopramide 10 mg IV and NSS 1 L bolus. She was given her usual Requip in addition to Cogentin 2 mg IV, then subsequent 0.5 mg Ativan IV. She was also treated with 100 mg IV Hydrocortisone due to the concern of adrenal insufficiency with her history of chronic prednisone use for rheumatoid arthritis. Eventually while in ER she became restless and there was concern for sepsis/meningitis. Admission lab showed hyponatremia with sodium 121. Prior record review showed she had history of repeated episodes of hyponatremia with serum sodium 129-130. She has been on hydrochlorothiazide 25 mg p.o. daily. Has stage III CKD, baseline creatinine variable from 1.2-1.5, on admission creatinine was 1.3 which has been relatively stable. Considering change in mental status she was given 3% saline and sodium improved over 24 hours to 129. urine osmolality was relatively low around 210-250. Random cortisol was normal. LP was done but no evidence of meningitis. She had to be intubated on 03/27/2022 to the [facility] however successfully extubated yesterday morning and she has been maintaining her oxygen saturation since extubation. Overall clinically she has been doing much better over last 24 hours however serum sodium dropped again to 126 this morning. Blood pressure has been stable, has been afebrile. Allergies Allergy/AdvReac Type Severity Reaction Status Date / Time No Known Drug Allergies Allergy Verified 03/27/20 11:18 Home Medications Home Medications Medication Instructions Recorded Confirmed Type cholecalciferol (vitamin D3) 2,000 unit PO QAM 05/05/18 03/27/20 History [Vitamin D3] multivitamin 1 tab PO QDD 05/05/18 03/27/20 History ezetimibe 10 mg tablet 10 mg PO QAM #90 tab 05/04/19 03/27/20 Rx calcium carbonate 600 mg calcium 600 mg PO BID tab 06/19/19 03/27/20 History (1,500 mg) tablet oxycodone-acetaminophen 5 mg-325 1 tab PO Q6H PRN #90 tab 06/21/19 03/27/20 Rx mg tablet ropinirole 0.25 mg tablet 0.25 mg PO HS #90 tab 07/03/19 03/27/20 Rx atorvastatin 80 mg tablet 80 mg PO HS #90 tab 07/16/19 03/27/20 Rx cyclobenzaprine 10 mg tablet 10 mg PO HS PRN #90 tab 07/16/19 03/27/20 Rx omeprazole 20 mg capsule,delayed 20 mg PO BID #180 cap 07/16/19 03/27/20 Rx release prednisone 5 mg tablet 7.5 mg PO DAILY #60 tab 08/15/19 03/27/20 Rx hydrochlorothiazide 25 mg tablet 25 mg PO DAILY #90 tab 09/27/19 03/27/20 Rx levothyroxine 75 mcg tablet 75 mcg PO QAM #90 tab 10/19/19 03/27/20 Rx ropinirole 2 mg tablet,extended 2 mg PO DAILY #90 tab 12/25/19 03/27/20 Rx release 24 hr diclofenac sodium 1 % topical gel 2 gm TOPICAL QID #100 gm 05/27/20 08/20/20 Rx tramadol 50 mg tablet 50 mg PO Q6H #100 tab 01/11/20 03/27/20 Rx hydroxychloroquine 200 mg tablet 200 mg PO BID #180 tab 01/31/20 03/27/20 Rx acetaminophen 1,000 mg PO Q6H PRN 03/06/20 03/27/20 History lisinopril 0 mg PO DAILY 03/27/20 03/27/20 History Patient History Medical History (Updated 03/28/20 @ 12:15 by Kimo Newby MD) Acid reflux Acute hyponatremia Acute hypoxemic respiratory failure Acute metabolic encephalopathy Chronic kidney disease 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 Dysuria Hiatal hernia History of Hodgkin's lymphoma S/P RADIATION/CHEMO (2000) History of pelvic fracture Hyperlipidemia Hypertension Hypothyroidism Mixed stress and urge urinary incontinence Restless leg syndrome Rheumatoid arthritis ON PLAQUENIL AND CHRONIC PREDNISONE 7.5MG DAILY Sciatica Scoliosis Surgical History H/O foot surgery 2ND RT TOE REMOVED History of bilateral cataract extraction RIGHT CATARACT EXTRACTION WITH IOL= 04/05/18= MAC SEDATION AT [facility] History of colonoscopy History of gynecologic surgery ANTERIOR AND POSTERIOR REPAIR - colporrhaphy (for pelvic relaxation) History of removal of cyst HEAD (BENIGN) History of tonsillectomy History of tooth extraction History of total knee replacement RT History of urologic surgery URETEROLYSIS- 04/1995 [facility] S/P vaginal hysterectomy Family History Mother , age 80 Cardiac disorder Family history of lung cancer Brother Diabetes Family history of lung cancer Family history of diabetes mellitus Daughter Breast cancer Father , age 57 Cardiac disorder Grandmother Diabetes Aunt Ovarian cancer paternal aunt Grandmother (Paternal) Family history of diabetes mellitus Denies family history of Colon cancer Colorectal cancer Social History Smoking Status: Never smoker Cigarettes Per Day: QUIT + 30 YEARS AGO; Second Hand Exposure: No; Hx Alcohol Use: Yes Alcohol type: wine Alcohol Intake Frequency Comment: Social Preferred Language: Taiwanese Communication Ability: Effective Communication Ability Comment: Non-verbal, confused at this time. 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 [employer] Feels Safe at Home: Yes Sunscreen Use: Yes (occasionally) Review of Systems Review of Systems: All systems reviewed & are unremarkable except as noted in HPI & below Physical Exam Constitutional: WD/WN, vitals as above no acute distress Eyes: PERRL, conjunctivae normal, anicteric sclerae ENMT: external ear and nose normal, oropharynx normal Ears: no hearing impairment Neck: trachea midline Respiratory: normal respiratory effort, lungs clear to auscultation no cough Auscultation: no crackles, no rales and no wheezes Cardiovascular: RRR, no murmur, no edema Gastrointestinal (Abdomen): normal bowel sounds, soft, nontender, no hepatosplenomegaly Percussion/Palpation: abdomen nontender, no guarding and abdomen not rigid Musculoskeletal: Extremities: extremities normal to inspection Gait: normal gait Skin: no rashes, warm and dry Neurologic: moves all extremities and awake Psychiatric: A+Ox3, euthymic affect Results & Data ([facility]) Vital Signs (Past 12 Hours) Vital Signs Temp Pulse Resp BP Pulse Ox 03/29/20 11:22 37.0 C 71 18 122/71 95 03/29/20 07:37 93 H 03/29/20 06:54 36.8 C 87 18 114/64 97 03/29/20 04:09 37 C 73 18 102/56 L 93 03/29/20 02:22 82 PG Care Time/CCT Total # of Minutes Spent Total Time Spent with Patient: Total time spent is greater than 50% in coordination of care (as documented) at patient's floor/unit and/or counseling patient: Coding Level of Care Code 49314 Inpt Consult Level 5 Diagnoses Acute hyponatremia E87.1 Chronic renal insufficiency N18.9 Hypertension I10
[2020-03-29] MEDS ORDERED: ROPINIROLE HCL 1 MG TABLET PO ONE (12:52)
[2020-03-29] MEDS: CHLORASEPTIC 1.4% SOLN 180 ML BTL MT PRN ×2 (16:16→20:35)
[2020-03-29] MEDS: ROPINIROLE HCL 1 MG TABLET PO SCH (20:35)
[2020-03-29] MEDS: SODIUM CHLORIDE 1 GM TABLET PO SCH (20:38)
--- NOTE | 2020-03-29 22:05 | Hospitalist Progress Note ---
Date of Service March 29, 2020 Assessment & Plan (1) Drug induced akathisia: It appears this was likely secondary to her medications. This could have been multifactorial as well with her hyponatremia also playing a role. Currently she is feeling better. will continue to monitor for another 24 hours. Will hold medications that may worsen her mental status. Patient will need to followup with nephrology. iNFECTIOUS etiology appears to have been ruled out. I appreciate input from Neuro (below in bold). It appears mostly her change of mental status was iatrogenic. The patient has a background of rheumatoid/inflammatory arthritis on steroids and hydroxychloroquine. She also carries a diagnosis of restless leg syndrome on ropinirole. She had increased leg movements and nausea and vomiting for 24 hours prior to admission and was noted in the ER to have a sodium of 121 (normal for her is in the 130s ). In the emergency room, she was given metoclopramide for the nausea and vomiting. This made her legs and restlessness in general worse. She received multiple different medications including benzodiazepines, diphenhydramine, Solu- Cortef, Ropinirole, and Cogentin. her mental status became worse and her movements were quite significant dyskinesias/akathisia. This morning her sodium is 128 and she is calm with a very normal mental status all things considered. She has no focal neurologic findings or meningeal signs. 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 The mildly elevated protein can be seen in individuals with significant rheumatoid arthritis or other chronic inflammatory disease. MRI of the brain showed no stroke or significant abnormalities. Hyponatremia was likely the trigger for all of her symptoms compound by multiple different medications in the emergency room. Even though the sodium was only as low as 121 this is a enough of a change, if done rapidly enough, to produce encephalopathy, focal neurologic findings, or even abnormal involuntary movements. EEG showed no seizure activity. In addition, I do not know how much narcotics she was taking at home. This could affect her mental status obviously. (2) Acute encephalopathy: Same differential as above and below. (3) Acute hyponatremia: Sodium has been gradually improving, now in the mid 120s[address] on sodium tablets, and fluid restriction. will continue to monitor. Likely SIADH. (4) Acute adrenal insufficiency: Concern for this admission due to hyponatremia, nausea, vomiting. However no hypotension. Random cortisol WNL. Will defer further hydrocortisone to ICU team. (5) Increased anion gap metabolic acidosis: After restless movements for multiple hours. Repeat BMP with anion gap metabolic acidosis. Suspect lactic acid induced with excessive movements. Will defer further IV fluids to ICU team. (6) Hypercholesterolemia: Holding atorvastatin with acute metabolic encephalopathy (7) Hypothyroidism: resumed home levothyroxine medication (8) Rheumatoid arthritis: On hydroxychloroquine and prednisone chronically. Rheumatoid vs. inflammatory polyarthritis. (9) Hx of Hodgkin's disease: Notable history of this (10) Hypertension: Holding antihypertensives (11) DVT prophylaxis: Deferred prior to CT head Admission and Anticipated Discharge Date Admission Date: March 27, 2020 Subjective Patient reports feeling better. Patient's main complaint is her pain when she swallows. Her daughter is at bedside. They have multiple questions regarding why her chorea and lethargy occurred. This was answered. Review of Systems Review of Systems: All systems reviewed & are unremarkable except as noted in HPI & below Physical Exam Physical Exam: Constitutional: WD/WN, vitals as above no acute distress Eyes: PERRL, conjunctivae normal, anicteric sclerae ENMT: external ear and nose normal, oropharynx normal Ears: no hearing impairment Neck: trachea midline Respiratory: normal respiratory effort, lungs clear to auscultation no cough Auscultation: no crackles, no rales and no wheezes Cardiovascular: RRR, no murmur, no edema Gastrointestinal (Abdomen): normal bowel sounds, soft, nontender, no hepatosple nomegaly Percussion/Palpation: abdomen nontender, no guarding and abdomen not rigid Musculoskeletal: Extremities: extremities normal to inspection Gait: normal gait Skin: no rashes, warm and dry Neurologic: moves all extremities and awake Psychiatric: A+Ox3, euthymic affect Results & Data Results & Data ([facility]) Vital Signs (Past 12 Hours) Vital Signs Temp Pulse Resp BP Pulse Ox 03/29/20 19:03 36.8 C 81 16 122/67 95 03/29/20 14:53 70 03/29/20 14:48 36.5 C 66 18 128/75 95 03/29/20 11:22 37.0 C 71 18 122/71 95 PG Care Time/CCT Total # of Minutes Spent Total Time Spent with Patient: Total time spent is greater than 50% in coordination of care (as documented) at patient's floor/unit and/or counseling patient: Coding Level of Care Code 15065 Subseq Hosp Care Lvl 3 Diagnoses Drug induced akathisia G25.71 Acute encephalopathy G93.40 Acute hyponatremia E87.1 Acute adrenal insufficiency E27.40 Increased anion gap metabolic acidosis E87.2 Hypercholesterolemia E78.00 Hypothyroidism E03.9 Rheumatoid arthritis M06.9 Hx of Hodgkin's disease Z85.71 Hypertension I10 DVT prophylaxis Z29.9 Time Spent (min) 35
[2020-03-30] MEDS: ACETAMINOPHEN 500 MG TAB PO PRN (04:24)
[2020-03-30] MEDS: LEVOTHYROXINE SODIUM 75 MCG TABLET PO SCH (06:13)
[2020-03-30 06:55] LABS: Albumin Level 2.7 gm/dl (3.4-5.0); BUN Creatinine Ratio 17.7 (10-20); Creatinine Clr Calc Pharmacy 37.8 ml/min; Est GFR (African American) 69.6; Est GFR (Non-African American) 60.1; Potassium 3.5 mmol/L (3.5-5.1)
[2020-03-30 06:58] LABS: Phosphorus 1.9 mg/dl (2.5-4.9)
[2020-03-30] MEDS: predniSONE 5 MG TAB PO SCH (08:09)
[2020-03-30] MEDS: SODIUM CHLORIDE 1 GM TABLET PO SCH (08:09)
[2020-03-30] MEDS: CHLORASEPTIC 1.4% SOLN 180 ML BTL MT PRN ×2 (08:10→11:42)
[2020-03-30] MEDS: ENOXAPARIN INJ 40 MG/0.4 ML SYR SQ SCH (08:10)
--- NOTE | 2020-03-30 10:17 | Neurology Progress Note ---
Date of Service March 30, 2020 Assessment & Plan (1) Acute encephalopathy: (2) Acute hyponatremia: (3) Drug induced akathisia: (4) Rheumatoid arthritis: (5) Restless leg syndrome: the patient has a background of rheumatoid/inflammatory arthritis on steroids and hydroxychloroquine. She also carries a diagnosis of restless leg syndrome on ropinirole. What I saw on the video tape brought in by the daughter from the night before admission did not look like restless legs but some type of a significant movement disorder. Patient had been taking significant doses of oxycodone leading up to admission over that week. She had increased leg movements and nausea and vomiting for 24 hours prior to admission and was noted in the ER to have a sodium of 121 (normal for her is in the 130s ). In the emergency room, she was given metoclopramide for the nausea and vomiting. This made her legs and restlessness in general worse. She received multiple different medications including benzodiazepines, diphenhydramine, Solu- Cortef, Ropinirole, and Cogentin. her mental status became worse and her movements were quite significant dyskinesias/akathisia. This morning her sodium is 129 and she is calm with a very normal mental status, no encephalopathy, meningeal signs, or focal neurologic findings. Lumbar puncture showed no signs of PALS SPECIALIST infection or inflammation. The mildly elevated protein can be seen in individuals with significant rheumatoid arthritis or other chronic inflammatory disease. MRI of the brain showed no stroke or significant abnormalities. EEG showed no seizure activity. Hyponatremia as well as excessive narcotic usage, were likely the triggers for all of her symptoms, compound by multiple different medications in the emergency room. Even though the sodium was only as low as 121 this is a enough of a change, if done rapidly enough, to produce encephalopathy, focal neurologic findings, or even abnormal involuntary movements. Excessive narcotic usage could give encephalopathy and abnormal involuntary movements Recommendations: 1. Keep off all PALS SPECIALIST acting medications for now, including benzodiazepines, levetiracetam, benztropine, narcotic pain medication, and diphenhydramine. 2. Continue on her usual outpatient medications otherwise. 3. I would be happy to follow as an outpatient (In 2-3 weeks) to further investigate and treat her restlessness and gait issues. 4. Otherwise, I see no reason for additional neurologic testing at this time. Overall, I spent a total of 40 minutes with this case including review of records, direct evaluation the patient at bedside, and discussion of the case with the patient and 2 daughters at bedside, and Dr. Paez, including differential diagnosis and treatment options. Admission and Anticipated Discharge Date Admission Date: March 27, 2020 Subjective the patient is feeling improved this morning. She has no recall of the events of March 28 or seeing me in the ICU that day. Currently she has no complaint of pain or headache. She walked to the bathroom this morning and felt that her balance was off. She is not dizzy. She has no significant restlessness of the legs this morning. Both daughters are present at bedside and I watched a video of her legs moving the night before admission while she was lying down. It looked like a more significant, nonrhythmic,movement disorder such as chorea or a severe dyskinesia. It was bilateral , and somewhat irregular, in the legs only. Blood pressure is 163/71 this morning. Sodium was 129. She has anemia and low albumin. The patient told me that after her shoulder surgery, she was taking 2 tablets of oxycodone 5 mg every 6 hours for couple of days then she went down to 1 tablet every 6 hours. Seems like she was taking it regularly since surgery. Results & Data ([facility]) Vital Signs (Past 12 Hours) Vital Signs Temp Pulse Pulse Resp BP Pulse Ox 03/30/20 07:27 78 03/30/20 07:01 36.4 C L 68 18 163/71 H 98 03/30/20 07:00 36.4 C L 65 18 120/78 90 03/30/20 04:14 36.6 C 74 18 129/66 97 03/30/20 00:18 72 03/29/20 23:44 36.5 C 73 19 138/72 97 Exam (Neuro) Physical Exam: She is awake and alert. Speech is without aphasia or dysarthria. Mood and affect seem normal appropriate. Thought processes are intact with good memory to conversation except for the events around her admission through the next day. Pupils are bilaterally symmetrical and reactive. Extraocular eye muscles are intact without nystagmus. There is no facial droop. She has no bradykinesia, masklike face, or abnormal involuntary movements seen. Coordination is normal in the left arm with good facility. Strength is 5/5. Leg strength is 5/5 he with good tone as well. The right upper extremity is in a sling but she has good supervisor of way strength distally. Neck is supple. PG Care Time/CCT Total # of Minutes Spent Total Time Spent with Patient: Total time spent is greater than 50% in coordination of care (as documented) at patient's floor/unit and/or counseling patient: Coding Level of Care Code 77602 Subseq Hosp Care Lvl 3 Diagnoses Acute encephalopathy G93.40 Acute hyponatremia E87.1 Drug induced akathisia G25.71 Rheumatoid arthritis M06.9 Restless leg syndrome G25.81 Time Spent (min) 40
--- NOTE | 2020-03-30 10:23 | Nephrology Progress Note ---
Date of Service March 30, 2020 Assessment & Plan (1) Acute hyponatremia: Hyponatremia in the setting nausea, vomiting, recent surgery, thiazide diuretics. No evidence of adrenal insufficiency, urine osmolality relatively low. History of repeated episode of mild hyponatremia with hydrochlo rothiazide, Prednisone and Gabapentin. Sodium improved to 129, renal function improved,continue to monitor,avoid any further IV fluid. Expect sodium to slowly improve --liberalize salt in diet, continue on salt tab on DC --keep off of thiazide diuretics in future, continue lisinopril and increase dose as needed. If BP high or volume overload, start on lasix 20 /d Will follow while in patient, no out pt nephrology f/u needed, f/u with PCP. Admission and Anticipated Discharge Date Admission Date: March 27, 2020 Renetta Hawkins was seen and examined this am with family at bedside. Overall doing better. Still has some nausea but no F/C, SOB, CP, abdominal pain. Review of Systems Review of Systems: All systems reviewed & are unremarkable except as noted in HPI & below Physical Exam Constitutional: well developed and well nourished; no acute distress Respiratory: normal respiratory effort, lungs clear to auscultation Cardiovascular: RRR, no murmur, no edema Neurologic: moves all extremities and awake; not confused Psychiatric: A+Ox3, euthymic affect Results & Data ([facility]) Vital Signs (Past 12 Hours) Vital Signs Temp Pulse Pulse Resp BP Pulse Ox 03/30/20 07:27 78 03/30/20 07:01 36.4 C L 68 18 163/71 H 98 03/30/20 07:00 36.4 C L 65 18 120/78 90 03/30/20 04:14 36.6 C 74 18 129/66 97 03/30/20 00:18 72 03/29/20 23:44 36.5 C 73 19 138/72 97 PG Care Time/CCT Total # of Minutes Spent Total Time Spent with Patient: Total time spent is greater than 50% in coordination of care (as documented) at patient's floor/unit and/or counseling patient: Coding Level of Care Code 26580 Subseq Hosp Care Lvl 3 Diagnoses Acute hyponatremia E87.1
[2020-03-30] MEDS ORDERED: ALUMINUM/MAGNESIUM SUSP 30 ML UDC PO STA (11:29)
[2020-03-30] MEDS ORDERED: ROPINIROLE HCL 1 MG TABLET PO ONE (12:00)
[2020-03-31 14:15] LABS: HSV Type 1 DNA Not Detected (Not Detected); HSV Type 1&2 DNA Source CSF; HSV Type 2 DNA Not Detected (Not Detected)
[2020-04-02 18:36] LABS: Enterovirus RNA by PCR Not Detected (Not Detected); Herpes Virus 6 (DNA) Not Detected (Not Detected); Herpes Virus 6 (DNA) Source CSF; Lyme IgG Band Pattern CSF DNR; Lyme IgG CSF NO BANDS DETECTED; Lyme IgM Band Pattern CSF DNR; Lyme IgM CSF NO BANDS DETECTED; VDRL Qualitative CSF Nonreactive (Nonreactive)
--- NOTE | 2020-04-06 21:06 | Discharge Summary ---
Date of Service March 30, 2020 Admission HPI Per Admitting Provider Shruthi Brannon is a 79-year-old female who initially came to the emergency room due to nausea and vomiting. This started yesterday. She is recently been taking oxycodone after recent right shoulder surgery for chronic impingement, biceps tendinopathy and rotator cuff tears. When seen the patient was unable to give any history due to metabolic encephalopathy movement disorder. Her daughter was understandably distressed at bedside and difficult to get a full history but appears her nausea and vomiting started yesterday. No associated abdominal pain, melena, bright red blood in stool or change in bowels. Medicine was consulted for adrenal insufficiency and hyponatremia. On discussion with her nurse if she came in via wheelchair with mild movement disorders of her legs which is close to her baseline with an apparent diagnosis of restless leg syndrome for which she takes Requip although she missed her usual dose this morning, her restless leg syndrome was worse last night but the main reason for coming to the ER was the nausea and vomiting. She was orientated and able to have a full conversation when she came to the ER but did appear restless. In the ER she was initially treated with metoclopramide 10 mg IV and NSS 1 L bolus. Due to her restless legs (I am unclear whether they are worsening at this time) she was given her usual Requip in addition to Cogentin 2 mg IV, then subsequent 0.5 mg Ativan IV. Labs showed hyponatremia with sodium 121 (previously 130 in February) therefore there was concern for adrenal insufficiency with chronic prednisone use, recent surgery and concurrent nausea and vomiting - she was treated with 100 mg IV hydrocortisone with additional NSS 500 ml bolus. Medicine were consulted for hyponatremia with suspected adrenal insufficiency. She was given an additional 1 mg IV Ativan 10 minutes prior to me seeing the patient. Her daughter reported since coming to the ER significant worsening of her movement disorder. The patient was not responding to voice or noxious stimuli when seen. She appeared restless in bed with large dancing movements of all 4 extremities but especially both legs. Suspected akathisia secondary to metoclopramide therefore 50 mg IV Benadryl given. Patient at risk to herself pulling out IV lines therefore she was placed in soft restraints at 2:30 PM. Normal saline was discontinued due to concern for SIADH and worsening hyponatre nahum. Repeat BMP ordered. Additional 1 mg Ativan given without any significant change in her movements. Discussed care with Dr. Dougherty (neurology) and Dr. Newby (ICU) due to potential need for further sedation and possible intubation who came to review the patient at bedside. Daughter has a video on her phone regarding her movement disorder last night. This shows the patient moving her legs constantly, rhythmically, int/ext rotation of the hip while patient is sleeping. Principal Diagnosis Drug induced akathisia Discharge Exam Constitutional: WD/WN, vitals as above no acute distress Eyes: PERRL, conjunctivae normal, anicteric sclerae ENMT: external ear and nose normal, oropharynx normal Ears: no hearing impairment Neck: trachea midline Respiratory: normal respiratory effort, lungs clear to auscultation no cough Auscultation: no crackles, no rales and no wheezes Cardiovascular: RRR, no murmur, no edema Gastrointestinal (Abdomen): normal bowel sounds, soft, nontender, no hepatosplenomegaly Percussion/Palpation: abdomen nontender, no guarding and abdomen not rigid Musculoskeletal: Extremities: extremities normal to inspection Gait: normal gait Skin: no rashes, warm and dry Neurologic: moves all extremities and awake Psychiatric: A+Ox3, euthymic affect Discharge Data Allergies Allergy/AdvReac Type Severity Reaction Status Date / Time No Known Drug Allergies Allergy Verified 04/01/20 13:11 Consultations 03/27/20 13:21 ED Decision to Admit Stat 03/27/20 18:27 Consult Case Management - Discharge Planning Routine Consult Pan Washer Routine 03/27/20 18:41 Consult Neurology Routine 03/29/20 01:13 Consult Nephrology Routine Ordered Studies 03/27/20 16:04 CT head/brain wo con Stat 03/27/20 22:00 MR brain wo/w con Urgent Hospital Course (1) Drug induced akathisia: It appears this was likely secondary to her medications. This could have been multifactorial as well with her hyponatremia also playing a role. Currently she is feeling better. will continue to monitor for another 24 hours. Will hold medications that may worsen her mental status. Patient will need to followup with nephrology. iNFECTIOUS etiology appears to have been ruled out. I appreciate input from Neuro (below in bold). It appears mostly her change of mental status was iatrogenic. The patient has a background of rheumatoid/inflammatory arthritis on steroids and hydroxychloroquine. She also carries a diagnosis of restless leg syndrome on ropinirole. the patient has a background of rheumatoid/inflammatory arthritis on steroids and hydroxychloroquine. She also carries a diagnosis of restless leg syndrome on ropinirole. What I saw on the video tape brought in by the daughter from the night before admission did not look like restless legs but some type of a significant movement disorder. Patient had been taking significant doses of oxycodone leading up to admission over that week. She had increased leg movements and nausea and vomiting for 24 hours prior to admission and was noted in the ER to have a sodium of 121 (normal for her is in the 130s ). In the emergency room, she was given metoclopramide for the nausea and vomiting. This made her legs and restlessness in general worse. She received multiple different medications including benzodiazepines, diphenhydramine, Solu- Cortef, Ropinirole, and Cogentin. her mental status became worse and her movements were quite significant dyskinesias/akathisia. This morning her sodium is 129 and she is calm with a very normal mental status, no encephalopathy, meningeal signs, or focal neurologic findings. Lumbar puncture showed no signs of CAR AUDIO INSTALLER infection or inflammation. The mildly elevated protein can be seen in individuals with significant rheumatoid arthritis or other chronic inflammatory disease. MRI of the brain showed no stroke or significant abnormalities. EEG showed no seizure activity. Hyponatremia as well as excessive narcotic usage, were likely the triggers for all of her symptoms, compound by multiple different medications in the emergency room. Even though the sodium was only as low as 121 this is a enough of a change, if done rapidly enough, to produce encephalopathy, focal neurologic findings, or even abnormal involuntary movements. Excessive narcotic usage could give encephalopathy and abnormal involuntary movements Recommendations: 1. Keep off all CAR AUDIO INSTALLER acting medications for now, including benzodiazepines, levetiracetam, benztropine, narcotic pain medication, and diphenhydramine. 2. Continue on her usual outpatient medications otherwise. 3. I would be happy to follow as an outpatient (In 2-3 weeks) to further investigate and treat her restlessness and gait issues. 4. Otherwise, I see no reason for additional neurologic testing at this time. (2) Acute encephalopathy: Same differential as above and below. (3) Acute hyponatremia: improved on salt tablet. will monitor as outpatient. (4) Acute adrenal insufficiency: Concern for this admission due to hyponatremia, nausea, vomiting. However no hypotension. Random cortisol WNL. (5) Increased anion gap metabolic acidosis: resolved. (6) Hypercholesterolemia: Holding atorvastatin with acute metabolic encephalopathy (7) Hypothyroidism: resumed home levothyroxine medication (8) Rheumatoid arthritis: On hydroxychloroquine and prednisone chronically. Rheumatoid vs. inflammatory polyarthritis. (9) Hx of Hodgkin's disease: Notable history of this (10) Hypertension: resumed meds but will hold hctz (11) DVT prophylaxis: Deferred prior to CT head Total Time Total Time Spent Total Time Spent (In Minutes): 32 Total Time Includes: Examination of the Patient, Discharge Planning and Medication Reconciliation Discharge Plan Discharge Items Patient Disposition: Home - Self-Care Reason For Visit: CHOREA, HYPONATREMIA Discharge Diagnosis: hyponatremia Activity: Resume your previous activity Non-emergency contact: Primary Care Provider Call non-emergency contact if: you have any medication questions Follow-up/Referrals: Burke Medina MD [Primary Care Provider] - Diet: Regular Addtl Attending Provider Instructions: You were found to have low sodium level. We stopped your thiazide medication as this may decrease your sodium. Will have you recheck your sodium in 3-5 days. We also stopped the zetia as well given rhadomyolysis, continue statin. we added amlodipine to your medication list as well. We stopped other medications that may worsen your movement or make you confused. We recommend you followup with your PCP. Pending Studies at Discharge: No Stand-Alone Forms: My [facility] [employer], Smoking Cessation Medications and DC Order Prescriptions: New sodium chloride 1 gram Tablet 1 g PO DAILY Qty: 30 RF: 0 amlodipine 2.5 mg tablet 2.5 mg PO PM Qty: 30 RF: 0 Continued ropinirole 0.25 mg tablet 0.25 mg PO HS Qty: 90 RF: 3 prednisone 5 mg tablet 7.5 mg PO DAILY Qty: 60 RF: 5 levothyroxine 75 mcg tablet 75 mcg PO QAM Qty: 90 RF: 3 ropinirole 2 mg tablet extended release 24 hr 2 mg PO DAILY Qty: 90 RF: 3 diclofenac sodium 1 % gel 2 gm topical QID Qty: 100 RF: 3 hydroxychloroquine [Plaquenil] 200 mg tablet 200 mg PO BID Qty: 180 RF: 3 atorvastatin 80 mg tablet 80 mg PO HS Qty: 90 RF: 3 omeprazole 20 mg capsule,delayed release(DR/EC) 20 mg PO BID Qty: 180 RF: 3 multivitamin Tablet 1 tab PO QDD RF: 0 cholecalciferol (vitamin D3) [Vitamin D3] 2,000 unit Capsule 2,000 unit PO QAM RF: 0 calcium carbonate [Calcium 600] 600 mg calcium (1,500 mg) tablet 600 mg PO BID RF: 0 acetaminophen 500 mg Tablet 1,000 mg PO Q6H PRN (Reason: Pain) RF: 0 Changed lisinopril 10 mg tablet 20 mg PO PM Qty: 0 RF: 0 Discontinued ezetimibe [Zetia] 10 mg tablet 10 mg PO QAM Qty: 90 RF: 3 oxycodone-acetaminophen 5-325 mg tablet 1 tab PO Q6H PRN (Reason: pain) Qty: 90 RF: 0 hydrochlorothiazide 25 mg tablet 25 mg PO DAILY Qty: 90 RF: 3 tramadol 50 mg tablet 50 mg PO Q6H Qty: 100 RF: 0 cyclobenzaprine 10 mg tablet 10 mg PO HS PRN (Reason: muscle spasm) Qty: 90 RF: 3 Discharge Orders: Discharge Order (Routine); Ordered 03/30/20 Ordered By: Izaiah Paez Admission Data Admit Date/Time: 03/27/20 15:49 Attending Provider: Izaiah Paez Admit Provider: Burke Oswald Primary Care Provider: Burke Medina Other Providers: Burke Oswald ; Kimo Newby ; Tien Doguherty ; Nikki Doherty Other Interventions: Discharge Summary Assessment (RN) Last Done: 03/30/20 11:08 Coding Level of Care Code D/C Day Management >30 mins Diagnoses Drug induced akathisia G25.71 Acute encephalopathy G93.40 Acute hyponatremia E87.1 Acute adrenal insufficiency E27.40 Increased anion gap metabolic acidosis E87.2 Hypercholesterolemia E78.00 Hypothyroidism E03.9 Rheumatoid arthritis M06.9 Hx of Hodgkin's disease Z85.71 Hypertension I10 DVT prophylaxis Z29.9
== END 2020-03-30 13:12 | disposition home or self-care (01) | DRG 56 ==
LOC: ED 09:54 → 1E 15:49 → SUATTDRO 15:49 → 1E 17:31 → 2N 03-28 19:03

== ENCOUNTER 2020-04-22 20:51 | Observation (INO) ==
[2020-04-22] MEDS ORDERED: diphenhydrAMINE 50 MG/ML VIAL IV STA (21:42)
[2020-04-22] MEDS: SODIUM CHLORIDE 0.9% 500 ML IV SCH (21:55)
[2020-04-22 21:59] LABS: Basophils # (auto) 0.02 K/uL (0-0.2); Basophils % (auto) 0.2 %; Eosinophils # (auto) 0.05 K/uL (0-0.5); Eosinophils % (auto) 0.4 %; Hematocrit (blood only) 32.4 % (37-47); Hemoglobin 11.3 g/dL (12.0-16.0); Immature Granulocytes # (auto) 0.04 K/uL (0.00-0.02); Immature Granulocytes % (auto) 0.3 %; Lymphocytes # (auto) 3.43 K/uL (1.2-3.4); Lymphocytes % (auto) 28.2 %; Mean Corpuscular Hemoglobin 30.8 pg (25-34); Mean Corpuscular Hgb Conc 34.9 g/dL (32-36); Mean Corpuscular Volume 88.3 fL (80-100); Mean Platelet Volume 7.6 fL (7.4-10.4); Monocytes # (auto) 1.28 K/uL (0.11-0.59); Monocytes % (auto) 10.5 %; Neutrophils # (auto) 7.36 K/uL (1.4-6.5); Neutrophils % (auto) 60.4 %; Platelet Count 284 K/uL (130-400); RDW Coefficient of Variation 13.3 % (11.5-14.5); Red Blood Count 3.67 M/uL (4.2-5.4); White Blood Count 12.18 K/uL (4.8-10.8)
[2020-04-22 22:09] LABS: Partial Thromboplastin Ratio 1.2; Partial Thromboplastin Time 32.9 Seconds (21.0-31.0); Prothrombin Time 10.5 Seconds (9.0-12.0)
[2020-04-22 22:16] LABS: Albumin Level 3.5 gm/dl (3.4-5.0); BUN Creatinine Ratio 16.9 (10-20); Calcium 9.4 mg/dl (8.5-10.1); Creatinine Clr Calc Pharmacy 36.4 ml/min; Est GFR (Non-African American) 57.8; Magnesium 1.8 mg/dl (1.8-2.4); Potassium 4.3 mmol/L (3.5-5.1)
[2020-04-22] MEDS ORDERED: DEXTROSE 50% 50 ML SYRINGE IV ONE (22:18)
[2020-04-22 22:19] LABS: Albumin Globulin Ratio 1.1 (0.9-2); Bilirubin,Total 0.4 mg/dl (0.2-1); Globulin 3.3 gm/dl (2.5-4.0); Total Protein 6.8 gm/dl (6.4-8.2)
[2020-04-22] MEDS ORDERED: LORazepam 0.5 MG/1 ML VIAL IV STA (22:26)
[2020-04-22 22:27] LABS: Appearance Urine Clear (Clear); Bacteria Urine Automated Negative (Negative); Bilirubin Urine Negative (Negative); Blood Urine 1+ (Negative); Color Urine Yellow; Glucose Urine UA Negative (Negative); Ketones Urine Negative (Negative); Leukocyte Esterase Urine 3+ (Negative); Nitrite Urine Negative (Negative); Protein Urine Negative (Negative); RBC Urine Automated 0-4 /hpf (0-4); Specific Gravity Urine 1.006 (1.000-1.030); Urobilinogen Urine Negative (Negative); WBC Urine Automated >30 /hpf (0-5); pH Urine 6.5 (4.5-7.5)
[2020-04-22] MEDS ORDERED: cefTRIAXone SODIUM 1,000 MG/50 ML BAG IV STA (22:58)
[2020-04-23] MEDS ORDERED: DEXTROSE 50% 50 ML SYRINGE IV ONE (00:28)
[2020-04-23] MEDS ORDERED: MULTI-VITAMIN INFUSION 10 ML, THIAMINE HCL 100 MG, FOLIC ACID 1 MG in SODIUM CHLORIDE 0... IV ONE (00:28)
--- NOTE | 2020-04-23 00:59 | History & Physical Report ---
Date of Service April 23, 2020 Assessment & Plan (1) Acute encephalopathy: Acute encephalopathy/drug-induced akathisia- Patient's symptoms today, appear to be similar to previous admission. We will rehydrate as noted above. Will place on ceftriaxone to treat UTI as noted above. We will hold hydroxychloroquine, which may be contributing to hypoglycemia, and ropinirole, which may be contributing to abnormal body movements. We will check Lyme disease, TSH, free T4, B12 and folate levels Consult neurology Present on Admission?: Yes (2) Acute UTI: Follow urine culture and sensitivity. Continue empiric ceftriaxone 1 g IV every 24 hours begun in the ED. Present on Admission?: Yes (3) Hypoglycemia: Glucose was 69 on entrance BMP, and only improved to 88 after 1 amp of D50. We will give additional 1 amp of D50. Patient is receiving a banana bag at this time, and will then place on D5 NSS + KCl 20 mEq at 100 mils per hour. Repeat renal panel, magnesium and CBC with differential in a.m. Present on Admission?: Yes (4) Chronic hyponatremia: Sodium was 124 upon admission, and was 123 upon discharge on April 01. Patient looks very dry at this time, and will hydrate as noted above. Present on Admission?: Yes (5) Drug induced akathisia: See above Present on Admission?: Yes (6) Hypothyroidism: Check a TSH and free T4. If not optimized, may be contributing to hyponatremia. Present on Admission?: Yes (7) Rheumatoid arthritis: For now, holding hydroxychloroquine. Patient is noted to have history of acute adrenal insufficiency. Will consider a trial of hydrocortisone 100 mg IV every 8 hours. Will hold off on adding any additional medications at this time, due to issues noted with previous hospitalization Present on Admission?: Yes (8) Hypercholesterolemia: Continue atorvastatin if the patient is able to take, otherwise will be held Present on Admission?: Yes (9) Hypertension: Holding lisinopril and amlodipine for now, as patient will be primarily n.p.o. due to current mental status Present on Admission?: Yes History of Present Illness Chief Complaint: The patient is brought to the emergency department due to 2 days of continuous movement of legs and inability to sleep Primary Care Provider: Burke Medina MD The patient is a 79-year-old female with a past medical history including restless leg syndrome, insomnia, acute encephalopathy, drug-induced akathisia, rheumatoid arthritis, hyponatremia, acute adrenal insufficiency, hypercholesterolemia, hypertension, hypothyroidism, inflammatory polyarthritis, history of Hodgkin's disease, retroperitoneal fibrosis, CKD, mixed urinary incontinence and history of right total knee arthroplasty. She was most recently admitted to [facility] from March 27 through March 30 for similar symptoms, and at that time developed acute respiratory compromise, requiring intubation and ICU admission. The patient symptoms were thought to be due to drug side effect. Family reports that her PCP was concerned about patient possibly being on too many medications. The patient herself was unable to contribute to the HPI or review of systems, and is in constant motion during examination, with twisting upper body and lower extremities [id number] in a writhing motion. Allergies Allergy/AdvReac Type Severity Reaction Status Date / Time No Known Drug Allergies Allergy Unknown Verified 04/22/20 23:34 Home Medications Home Medications Medication Instructions Recorded Confirmed Type cholecalciferol (vitamin D3) 2,000 unit PO QAM 05/05/18 04/22/20 History [Vitamin D3] multivitamin 1 tab PO QDD 05/05/18 04/22/20 History calcium carbonate 600 mg calcium 600 mg PO BID tab 06/19/19 04/22/20 History (1,500 mg) tablet atorvastatin 80 mg tablet 80 mg PO HS #90 tab 07/16/19 04/22/20 Rx omeprazole 20 mg capsule,delayed 20 mg PO BID #180 cap 07/16/19 04/22/20 Rx release levothyroxine 75 mcg tablet 75 mcg PO QAM #90 tab 10/19/19 04/22/20 Rx hydroxychloroquine 200 mg tablet 200 mg PO BID #180 tab 01/31/20 04/22/20 Rx acetaminophen 1,000 mg PO Q6H PRN 03/06/20 04/22/20 History lisinopril 20 mg PO PM #0 tab 03/30/20 04/22/20 Rx sodium chloride 1 g PO DAILY #30 tab 03/30/20 04/22/20 Rx ropinirole 2 mg tablet,extended 2 mg PO DAILY #90 tab 04/08/20 04/22/20 Rx release 24 hr amlodipine 2.5 mg tablet 2.5 mg PO PM #30 tab 04/18/20 04/22/20 Rx ropinirole 0.25 mg tablet 0.25 mg PO HS #90 tab 04/18/20 04/22/20 Rx cyclobenzaprine 10 mg PO HS PRN 04/22/20 04/22/20 History diclofenac sodium 2 gm TOPICAL QID PRN 04/22/20 04/22/20 History Past Med/Surg History Medical History Acid reflux Chronic kidney disease 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 Dysuria Hiatal hernia History of Hodgkin's lymphoma S/P RADIATION/CHEMO (2000) History of pelvic fracture Hyperlipidemia Hypertension Hypothyroidism Mixed stress and urge urinary incontinence Restless leg syndrome Rheumatoid arthritis ON PLAQUENIL AND CHRONIC PREDNISONE 7.5MG DAILY Sciatica Scoliosis Surgical History H/O foot surgery 2ND RT TOE REMOVED History of bilateral cataract extraction RIGHT CATARACT EXTRACTION WITH IOL= 04/05/18= MAC SEDATION AT [facility] History of colonoscopy History of gynecologic surgery ANTERIOR AND POSTERIOR REPAIR - colporrhaphy (for pelvic relaxation) History of removal of cyst HEAD (BENIGN) History of tonsillectomy History of tooth extraction History of total knee replacement RT History of urologic surgery [place] [facility] [place] Family History Mother , age 80 Cardiac disorder Family history of lung cancer Brother Diabetes Family history of lung cancer Family history of diabetes mellitus Daughter Breast cancer Father , age 57 Cardiac disorder Grandmother Diabetes Aunt Ovarian cancer paternal aunt Grandmother (Paternal) Family history of diabetes mellitus Denies family history of Colon cancer Colorectal cancer Social History Smoking Status: Never smoker Tobacco Type: Cigarettes Cigarettes Per Day: QUIT + 30 YEARS AGO; Second Hand Exposure: No; Hx Alcohol Use: No Hx Substance Use: No Preferred Language: [place] Communication Ability: Effective Visual Impairment: No Limitations Land Clearer Required: No Beliefs That Will Affect Care: None marital status: / Current Living Situation: Family Current Living Situation Comment: daughter 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 HEENT--PERRL, EOMI, mucous membranes and oropharynx dry. Neck--supple. No JVD. No bruits. Thyroid normal, trachea midline, no adenopathy. Heart--normal S1 and S2. No murmurs, rubs or gallops. Lungs--clear bilaterally, no respiratory distress, no accessory muscle use. Abdomen--normal bowel sounds and soft. Nontender. Nondistended. Extremities--no cyanosis or clubbing. No edema. Dermatologic--see above Neurologic--cranial nerves II through XII grossly intact. Rheumatologic--right shoulder in sling, otherwise appears to move all body parts equally Psychiatric--nonresponsive, and in continual motion in the ED. Results & Data Results & Data ([facility]) Vital Signs (Past 12 Hours) Vital Signs Temp Pulse Pulse Resp BP BP Pulse Ox 04/23/20 00:00 99 H 18 155/84 H 96 04/22/20 22:51 98 H 18 96 04/22/20 22:29 95 04/22/20 22:11 24 95 04/22/20 20:54 98.6 F 89 20 146/83 H 95 Laboratory Results Laboratory Results WBC 12.18 K/uL (4.8-10.8) H 04/22/20 21:48 RBC 3.67 M/uL (4.2-5.4) L 04/22/20 21:48 Hgb 11.3 g/dL (12.0-16.0) L 04/22/20 21:48 Hct 32.4 % (37-47) L 04/22/20 21:48 MCV 88.3 fL (80-100) 04/22/20 21:48 MCH 30.8 pg (25-34) 04/22/20 21:48 MCHC 34.9 g/dL (32-36) 04/22/20 21:48 RDW Std Deviation 43.0 fL (36.4-46.3) 04/22/20 21:48 RDW Coeff of Sachin 13.3 % (11.5-14.5) 04/22/20 21:48 Plt Count 284 K/uL (130-400) 04/22/20 21:48 MPV 7.6 fL (7.4-10.4) 04/22/20 21:48 Immature Gran % (Auto) 0.3 % 04/22/20 21:48 Neut % (Auto) 60.4 % 04/22/20 21:48 Lymph % (Auto) 28.2 % 04/22/20 21:48 Dickinson % (Auto) 10.5 % 04/22/20 21:48 Eos % (Auto) 0.4 % 04/22/20 21:48 Baso % (Auto) 0.2 % 04/22/20 21:48 Neut # (Auto) 7.36 K/uL (1.4-6.5) H 04/22/20 21:48 Lymph # (Auto) 3.43 K/uL (1.2-3.4) H 04/22/20 21:48 Dickinson # (Auto) 1.28 K/uL (0.11-0.59) H 04/22/20 21:48 Eos # (Auto) 0.05 K/uL (0-0.5) 04/22/20 21:48 Baso # (Auto) 0.02 K/uL (0-0.2) 04/22/20 21:48 Immature Gran # (Auto) 0.04 K/uL (0.00-0.02) H 04/22/20 21:48 PT 10.5 Seconds (9.0-12.0) 04/22/20 21:48 INR 1.0 (0.9-1.1) 04/22/20 21:48 APTT 32.9 Seconds (21.0-31.0) H 04/22/20 21:48 PTT Ratio 1.2 04/22/20 21:48 Sodium 124 mmol/L (136-145) L 04/22/20 21:48 Potassium 4.3 mmol/L (3.5-5.1) 04/22/20 21:48 Chloride 92 mmol/L (98-107) L 04/22/20 21:48 Carbon Dioxide 24 mmol/L (21-32) 04/22/20 21:48 Anion Gap 8.0 (3-11) 04/22/20 21:48 BUN 16 mg/dl (7-18) 04/22/20 21:48 Creatinine 0.95 mg/dl (0.6-1.2) 04/22/20 21:48 Est Cr Clr Drug Dosing 36.4 ml/min 04/22/20 21:48 Est GFR ( Amer) 67.0 04/22/20 21:48 Est GFR (Non-Af Amer) 57.8 04/22/20 21:48 BUN/Creatinine Ratio 16.9 (10-20) 04/22/20 21:48 Glucose 69 mg/dl (70-99) L 04/22/20 21:48 POC Glucose 73 mg/dl (70-99) 04/23/20 02:43 Lactate 1.9 mmol/L (0.4-2.0) 04/22/20 23:05 Calcium 9.4 mg/dl (8.5-10.1) 04/22/20 21:48 Magnesium 1.8 mg/dl (1.8-2.4) 04/22/20 21:48 Total Bilirubin 0.4 mg/dl (0.2-1) 04/22/20 21:48 AST 23 U/L (15-37) 04/22/20 21:48 ALT 21 U/L (12-78) 04/22/20 21:48 Alkaline Phosphatase 77 U/L (45-117) 04/22/20 21:48 Ammonia 14.4 umol/L (11-32) 04/22/20 23:05 Total Creatine Kinase 182 U/L (26-192) 04/22/20 21:48 Total Protein 6.8 gm/dl (6.4-8.2) 04/22/20 21:48 Albumin 3.5 gm/dl (3.4-5.0) 04/22/20 21:48 Globulin 3.3 gm/dl (2.5-4.0) 04/22/20 21:48 Albumin/Globulin Ratio 1.1 (0.9-2) 04/22/20 21:48 Urine Color Yellow 04/22/20 22:13 Urine Appearance Clear (Clear) 04/22/20 22:13 Urine pH 6.5 (4.5-7.5) 04/22/20 22:13 Ur Specific Imperial 1.006 (1.000-1.030) 04/22/20 22:13 Urine Protein Negative (Negative) 04/22/20 22:13 Urine Glucose (UA) Negative (Negative) 04/22/20 22:13 Urine Ketones Negative (Negative) 04/22/20 22:13 Urine Blood 1+ (Negative) H 04/22/20 22:13 Urine Nitrite Negative (Negative) 04/22/20 22:13 Urine Bilirubin Negative (Negative) 04/22/20 22:13 Urine Urobilinogen Negative (Negative) 04/22/20 22:13 Ur Leukocyte Esterase 3+ (Negative) H 04/22/20 22:13 Urine WBC (Auto) >30 /hpf (0-5) H 04/22/20 22:13 Urine RBC (Auto) 0-4 /hpf (0-4) 04/22/20 22:13 U Hyaline Cast (Auto) 1-5 /lpf (0-5) 04/22/20 22:13 U Epithel Cells (Auto) 5-10 /lpf (0-5) H 04/22/20 22:13 Urine Bacteria (Auto) Negative (Negative) 04/22/20 22:13 Diagnostic Findings [facility] Patient: NADIR RHODES (Female) : 44 Status: ER Date: 04/22/20 22:51 Room #: History: pt shaking uncontrallaby had rotator cuff sx in march been shaking ever since cant stop best images obtainable Slices: 90 Priors: Tech: iNcolas Barnhart @ [phone] Exams: CT HEAD Contrast: Accession Numbers: [id number] Preliminary Findings Only See Final Report For Complete Findings CT HEAD: Comparison: MRI brain 03/27/20. Study degraded by motion artifact. No evidence of acute ICH, mass effect, or edema. No skull fracture. Sinuses and mastoid air cells appear clear. Radiologist: Carmita Rachel M.D. Study ready at 22:56 and initial results transmitted at 22:57 *This report constitutes a preliminary interpretation only. Non-acute findings felt to be unrelated to the clinical presentation may not be discussed in this report. The study will be interpreted and a final report will be generated by the local Radiologist the following shift. To reach the hospital radiology department call [phone]. If a discrepancy is found between the preliminary and final interpretations of this study, please notify us via our Client Portal at [email or web address] QA [email or web address].You can also fax this report with a description of the discrepancy, or include the final report, to our daytime fax number [phone].If faxing, please indicate the severity of discrepancy using one of the following categories: [ ] 1 - Agree/Informational [ ] 2 - Unlikely to Affect Management [ ] 3 - Possible Eventual Change of Management [ ] 4 - Probable Immediate Change of Management For all other patient related information, please fax us at [phone]. [id number] Code Status & VTE Plan Code Status Full code VTE Prophylaxis Plan VTE Prophylaxis will be ordered: Yes PG Care Time/CCT Total # of Minutes Spent Total Time Spent with Patient: Total time spent is greater than 50% in coordination of care (as documented) at patient's floor/unit and/or counseling patient: Coding Level of Care Code 15613 Initial Inpt Care Lvl 3 Diagnoses Acute encephalopathy G93.40 Acute UTI N39.0 Hypoglycemia E16.2 Chronic hyponatremia E87.1 Drug induced akathisia G25.71 Hypothyroidism E03.9 Rheumatoid arthritis M06.9 Hypercholesterolemia E78.00 Hypertension I10
--- NOTE | 2020-04-23 01:59 | Emergency Department Note ---
History of Present Illness General Chief complaint: Leg Weakness, Bilateral Stated complaint: LEG IS MOVING HASNT SLEPT FOR 2 DAYS Time Seen by Provider: 04/22/20 21:36 History of Present Illness Provider complaint: Restless legs Onset (ago): day(s) 5 Location: lower extremity, left and right Radiation: non-radiation Associated symptoms: no confusion, no chest pain, no fever/chills, no nausea/vomiting and no shortness of breath 79-year-old female with a history of restless leg syndrome presents emergency department for restless legs. She states since Tuesday she is not been able control her legs. She states she has not slept since Tuesday. Patient denies any fever, falls, loss of taste or smell, blood in her urine, dysuria, chest pain or difficulty breathing. No nausea vomiting or diarrhea. Home Medications Home Medications Medication Instructions Recorded Confirmed Type cholecalciferol (vitamin D3) 2,000 unit PO QAM 05/05/18 04/22/20 History [Vitamin D3] multivitamin 1 tab PO QDD 05/05/18 04/22/20 History calcium carbonate 600 mg calcium 600 mg PO BID tab 06/19/19 04/22/20 History (1,500 mg) tablet atorvastatin 80 mg tablet 80 mg PO HS #90 tab 07/16/19 04/22/20 Rx omeprazole 20 mg capsule,delayed 20 mg PO BID #180 cap 07/16/19 04/22/20 Rx release levothyroxine 75 mcg tablet 75 mcg PO QAM #90 tab 10/19/19 04/22/20 Rx hydroxychloroquine 200 mg tablet 200 mg PO BID #180 tab 01/31/20 04/22/20 Rx acetaminophen 1,000 mg PO Q6H PRN 03/06/20 04/22/20 History lisinopril 20 mg PO PM #0 tab 03/30/20 04/22/20 Rx sodium chloride 1 g PO DAILY #30 tab 03/30/20 04/22/20 Rx ropinirole 2 mg tablet,extended 2 mg PO DAILY #90 tab 04/08/20 04/22/20 Rx release 24 hr amlodipine 2.5 mg tablet 2.5 mg PO PM #30 tab 04/18/20 04/22/20 Rx ropinirole 0.25 mg tablet 0.25 mg PO HS #90 tab 04/18/20 04/22/20 Rx cyclobenzaprine 10 mg PO HS PRN 04/22/20 04/22/20 History diclofenac sodium 2 gm TOPICAL QID PRN 04/22/20 04/22/20 History Allergies Allergy/AdvReac Type Severity Reaction Status Date / Time No Known Drug Allergies Allergy Unknown Verified 04/22/20 23:34 Past Med/Surg History Medical History Acid reflux Chronic kidney disease 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 History of colonoscopy History of gynecologic surgery ANTERIOR AND POSTERIOR REPAIR - colporrhaphy (for pelvic relaxation) History of removal of cyst HEAD (BENIGN) History of tonsillectomy History of tooth extraction History of total knee replacement RT History of urologic surgery URETEROLYSIS- 04/1995 [facility] – [place] S/P vaginal hysterectomy Family History Mother , age 80 Cardiac disorder Family history of lung cancer Brother Diabetes Family history of lung cancer Family history of diabetes mellitus Daughter Breast cancer Father , age 57 Cardiac disorder Grandmother Diabetes Aunt Ovarian cancer paternal aunt Grandmother (Paternal) Family history of diabetes mellitus Denies family history of Colon cancer Colorectal cancer Social History Smoking Status: Former smoker Tobacco Type: Cigarettes Cigarettes Per Day: QUIT + 30 YEARS AGO; Second Hand Exposure: No; Hx Alcohol Use: Yes Alcohol type: wine Alcohol Intake Frequency Comment: Social Preferred Language: Martiniquais Communication Ability: Effective Visual Impairment: No Limitations Security Controls Assessor Required: No Beliefs That Will Affect Care: None marital status: / Current Living Situation: Family Current Living Situation Comment: unknown, accompanied to ED by daughters 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 [employer] Feels Safe at Home: Yes Sunscreen Use: Yes (occasionally) Review of Systems A total of 10 systems reviewed and were otherwise negative Physical Exam Vital Signs Vital Signs - 24 hr 04/22/20 20:54 04/22/20 22:11 04/22/20 22:29 Temperature 37.0 C Temperature Source Oral Pulse Rate 89 Pulse Rate [Apical] Respiratory Rate 20 24 Respiratory Effort / Characteristics Non-Labored Spontaneous Non-Labored Respiratory Depth Normal Blood Pressure 146/83 H Blood Pressure [Left Arm] Blood Pressure Mean 104 Blood Pressure Mean [Left Arm] Pulse Oximetry 95 95 95 Oxygen Delivery Method Room Air Room Air Room Air Sepsis New/Unexplained Change in Mental Status N/A Sepsis Action Taken by Nursing No Action Required 04/22/20 22:51 04/23/20 00:00 Temperature Temperature Source Pulse Rate Pulse Rate [Apical] 98 H 99 H Respiratory Rate 18 18 Respiratory Effort / Characteristics Respiratory Depth Blood Pressure Blood Pressure [Left Arm] 155/84 H Blood Pressure Mean Blood Pressure Mean [Left Arm] 107 Pulse Oximetry 96 96 Oxygen Delivery Method Room Air Room Air Sepsis New/Unexplained Change in Mental Status Sepsis Action Taken by Nursing Physical Exam GENERAL: She is oriented to person, place, and time. She appears well-developed and well-nourished. She does not appear distressed. HENT: Exam performed. -Head: Normocephalic and atraumatic. -Right Ear: External ear normal. No mastoid tenderness. -Left Ear: External ear normal. No mastoid tenderness. -Mouth/Throat: The oropharynx is clear and moist. No trismus in the jaw. No dental abscesses or uvula swelling. No oropharyngeal exudate or tonsillar abscesses. EYES: Conjunctivae and EOM are normal. Pupils are equal, round, and reactive to light. Right eye exhibits no discharge. Left eye exhibits no discharge. No s cleral icterus. NECK: Normal range of motion. Neck supple. No JVD present. No spinous process tenderness present. No carotid bruit present. No rigidity. No tracheal deviation and normal range of motion present. No Brudzinski's sign and no Kernig's sign noted. CV: Normal rate, regular rhythm, normal heart sounds and intact distal pulses. There is no peripheral edema. Palpable radial pulses bue. PULM/CHEST: Effort normal and breath sounds normal. No respiratory distress. No stridor. She has no wheezes. She has no rales. -Chest Wall: She exhibits no tenderness. ABD: The abdomen is soft. Bowel sounds are normal. She has no distension. No mass is present. There is no tenderness. There is no rebound, no guarding, no Guido's sign and no tenderness at McBurney's point. Rovsig negative MUSC/SKEL: Chorea-like movements of the bilateral legs. Right shoulder is in shoulder immobilizer. NEURO: Motor and sensation grossly intact. PSYCH: She has a normal mood and affect. Behavior is normal. Judgment and thought content normal. Course Course 2135: The patient was evaluated in room C12. A complete history and physical exam was performed. EMR reviewed. Patient has a history of insomnia, restless leg syndrome, acute encephalopathy, drug-induced akathisia, rheumatoid arthritis, hyponatremia, adrenal insufficiency and hypertension. EMR reviewed patient had rotator cuff surgery done by Dr. Pacheco on March 18, 2020. On March 27, 2020 the patient was seen in the emergency department for weakness and vomiting. Also seen for restless legs. Patient was taking prednisone at that time and Requip. Patient was given Cogentin and Ativan 7 mg total as well as Solu-Cortef in the emergency department. Patient lumbar puncture was performed which showed no signs of meningitis. Patient was hyponatremic and required hypertonic saline. It was thought that the patient was having drug- induced akathisia due to polypharmacy and her hyponatremia. Patient saw nephrology Dr. Medina on April 18. The patient was hyponatremic at that time. Dr. Medina did not think that her hyponatremia was causing her sym ptomology. Cardiac monitoring: An order was placed for continuous cardiac monitoring. The monitor shows a rate of 90 with sinus rhythm Family is extremely concerned about the patient receiving too many medications including and not limited to Ativan and Cogentin due to her previous emergency visit where she required to be intubated due to the medications she was given. I had a long discussion with them and they were in agreement to try 25 mg of Benadryl to help calm the patient down and help her sleep. 2234: Labs show a glucose of 69. 1 amp of D50 ordered. Family is in agreement to take Ativan 0.5 mg at this time. 2300: Urinalysis shows possible UTI. Rocephin ordered. 2337: Vital signs stable. Patient continues to have chorea-like movements. Labs show UTI. Patient's blood sugar improved minimally with 1 amp of D50 going up into the 80s. Patient is not listed to be on any sulfonylureas, insulin, or metformin. Lactic acid and ammonia within normal limits. White blood cell count minimally elevated at 12.18. Sodium is 124, it does appear to be at the patient's baseline. Imaging within normal limits. [facility] notified 0030: Dr. Virgen evaluated the patient is asking that another amp of D50 be given. Administered Medications Sodium Chloride (Nss) 500 mls @ 125 mls/hr IV .Q4H JOSE LUIS Stop: 05/22/20 21:44 Last Admin: 04/22/20 21:55 Dose: 125 mls/hr Documented by: [id number] Discontinued Medications Dextrose (Dextrose 50% 50 Ml Syringe) 50 ml IV NOW ONE Stop: 04/22/20 22:19 Last Admin: 04/22/20 22:22 Dose: 50 ml Documented by: [id number] Dextrose (Dextrose 50% 50 Ml Syringe) 50 ml IV NOW ONE Stop: 04/23/20 00:29 Last Admin: 04/23/20 00:34 Dose: 50 ml Documented by: [id number] Diphenhydramine HCl (Diphenhydramine Hcl 50 Mg/Ml Vial) 25 mg IV NOW STA Stop: 04/22/20 21:43 Last Admin: 04/22/20 21:55 Dose: 25 mg Documented by: [id number] Lorazepam (Ativan) 0.5 mg in 1 mls @ 1 mls/min IV NOW STA Stop: 04/22/20 22:27 Last Admin: 04/22/20 22:36 Dose: 1 mls/min Documented by: [id number] Ceftriaxone Sodium (Rocephin) 1,000 mg in 50 mls @ 100 mls/hr IV NOW STA Stop: 04/22/20 23:27 Last Infusion: 04/22/20 23:54 Dose: 0 mls/hr Documented by: [id number] Admin: 04/22/20 23:24 Dose: 100 mls/hr Documented by: [id number] Multivitamins 10 ml/ Thiamine HCl 100 mg/ Folic Acid 1 mg/Sodium Chloride 1,011.2 mls @ 1,011.2 mls/hr IV .Q1H ONE Stop: 04/23/20 01:27 Last Admin: 04/23/20 00:57 Dose: 1,011.2 mls/hr Documented by: [id number] Critical Care Time Critical Care Time: Yes Total Critical Care Time: 69 I have personally spent greater than 69 minutes of critical care time in the direct management of this patient. This includes bedside care, interpretation of diagnostic studies, and testing, discussion with consultants, patient, and family members, and other required patient management activities. This 69 minutes is in excess of all separately billable procedures. Medical Decision Making Laboratory Data Result diagrams: 04/22/20 21:48 04/22/20 21:48 Lab Results 04/22/20 04/22/20 04/22/20 Range/Units 21:48 21:48 21:48 WBC 12.18 H (4.8-10.8) K/uL RBC 3.67 L (4.2-5.4) M/uL Hgb 11.3 L (12.0-16.0) g/dL Hct 32.4 L (37-47) % MCV 88.3 (80-100) fL MCH 30.8 (25-34) pg MCHC 34.9 (32-36) g/dL RDW Std Deviation 43.0 (36.4-46.3) fL RDW Coeff of [place] 13.3 (11.5-14.5) % Plt Count 284 (130-400) K/uL MPV 7.6 (7.4-10.4) fL Immature Gran % (Auto) 0.3 % Neut % (Auto) 60.4 % Lymph % (Auto) 28.2 % [place] % (Auto) 10.5 % Eos % (Auto) 0.4 % Baso % (Auto) 0.2 % Neut # (Auto) 7.36 H (1.4-6.5) K/uL Lymph # (Auto) 3.43 H (1.2-3.4) K/uL [place] # (Auto) 1.28 H (0.11-0.59) K/uL Eos # (Auto) 0.05 (0-0.5) K/uL Baso # (Auto) 0.02 (0-0.2) K/uL Immature Gran # (Auto) 0.04 H (0.00-0.02) K/uL PT 10.5 (9.0-12.0) Seconds INR 1.0 (0.9-1.1) APTT 32.9 H (21.0-31.0) Seconds PTT Ratio 1.2 Sodium 124 L (136-145) mmol/L Potassium 4.3 (3.5-5.1) mmol/L Chloride 92 L (98-107) mmol/L Carbon Dioxide 24 (21-32) mmol/L Anion Gap 8.0 (3-11) BUN 16 (7-18) mg/dl Creatinine 0.95 (0.6-1.2) mg/dl Est Cr Clr Drug Dosing 36.4 ml/min Est GFR ( Amer) 67.0 Est GFR (Non-Af Amer) 57.8 BUN/Creatinine Ratio 16.9 (10-20) Glucose 69 L (70-99) mg/dl POC Glucose (70-99) mg/dl Lactate (0.4-2.0) mmol/L Calcium 9.4 (8.5-10.1) mg/dl Magnesium 1.8 (1.8-2.4) mg/dl Total Bilirubin 0.4 (0.2-1) mg/dl AST 23 (15-37) U/L ALT 21 (12-78) U/L Alkaline Phosphatase 77 (45-117) U/L Ammonia (11-32) umol/L Total Creatine Kinase 182 (26-192) U/L Total Protein 6.8 (6.4-8.2) gm/dl Albumin 3.5 (3.4-5.0) gm/dl Globulin 3.3 (2.5-4.0) gm/dl Albumin/Globulin Ratio 1.1 (0.9-2) Urine Color Urine Appearance (Clear) Urine pH (4.5-7.5) Ur Specific [place] (1.000-1.030) Urine Protein (Negative) Urine Glucose (UA) (Negative) Urine Ketones (Negative) Urine Blood (Negative) Urine Nitrite (Negative) Urine Bilirubin (Negative) Urine Urobilinogen (Negative) Ur Leukocyte Esterase (Negative) Urine WBC (Auto) (0-5) /hpf Urine RBC (Auto) (0-4) /hpf U Hyaline Cast (Auto) (0-5) /lpf U Epithel Cells (Auto) (0-5) /lpf Urine Bacteria (Auto) (Negative) 04/22/20 04/22/20 04/22/20 Range/Units 22:13 23:05 23:05 WBC (4.8-10.8) K/uL RBC (4.2-5.4) M/uL Hgb (12.0-16.0) g/dL Hct (37-47) % MCV (80-100) fL MCH (25-34) pg MCHC (32-36) g/dL RDW Std Deviation (36.4-46.3) fL RDW Coeff of Sachin (11.5-14.5) % Plt Count (130-400) K/uL MPV (7.4-10.4) fL Immature Gran % (Auto) % Neut % (Auto) % Lymph % (Auto) % [place] % (Auto) % Eos % (Auto) % Baso % (Auto) % Neut # (Auto) (1.4-6.5) K/uL Lymph # (Auto) (1.2-3.4) K/uL [place] # (Auto) (0.11-0.59) K/uL Eos # (Auto) (0-0.5) K/uL Baso # (Auto) (0-0.2) K/uL Immature Gran # (Auto) (0.00-0.02) K/uL PT (9.0-12.0) Seconds INR (0.9-1.1) APTT (21.0-31.0) Seconds PTT Ratio Sodium (136-145) mmol/L Potassium (3.5-5.1) mmol/L Chloride (98-107) mmol/L Carbon Dioxide (21-32) mmol/L Anion Gap (3-11) BUN (7-18) mg/dl Creatinine (0.6-1.2) mg/dl Est Cr Clr Drug Dosing ml/min Est GFR ( Amer) Est GFR (Non-Af Amer) BUN/Creatinine Ratio (10-20) Glucose (70-99) mg/dl POC Glucose (70-99) mg/dl Lactate 1.9 (0.4-2.0) mmol/L Calcium (8.5-10.1) mg/dl Magnesium (1.8-2.4) mg/dl Total Bilirubin (0.2-1) mg/dl AST (15-37) U/L ALT (12-78) U/L Alkaline Phosphatase (45-117) U/L Ammonia 14.4 (11-32) umol/L Total Creatine Kinase (26-192) U/L Total Protein (6.4-8.2) gm/dl Albumin (3.4-5.0) gm/dl Globulin (2.5-4.0) gm/dl Albumin/Globulin Ratio (0.9-2) Urine Color Yellow Urine Appearance Clear (Clear) Urine pH 6.5 (4.5-7.5) Ur Specific [place] 1.006 (1.000-1.030) Urine Protein Negative (Negative) Urine Glucose (UA) Negative (Negative) Urine Ketones Negative (Negative) Urine Blood 1+ H (Negative) Urine Nitrite Negative (Negative) Urine Bilirubin Negative (Negative) Urine Urobilinogen Negative (Negative) Ur Leukocyte Esterase 3+ H (Negative) Urine WBC (Auto) >30 H (0-5) /hpf Urine RBC (Auto) 0-4 (0-4) /hpf U Hyaline Cast (Auto) 1-5 (0-5) /lpf U Epithel Cells (Auto) 5-10 H (0-5) /lpf Urine Bacteria (Auto) Negative (Negative) 04/22/20 Range/Units 23:33 WBC (4.8-10.8) K/uL RBC (4.2-5.4) M/uL Hgb (12.0-16.0) g/dL Hct (37-47) % MCV (80-100) fL MCH (25-34) pg MCHC (32-36) g/dL RDW Std Deviation (36.4-46.3) fL RDW Coeff of Sachin (11.5-14.5) % Plt Count (130-400) K/uL MPV (7.4-10.4) fL Immature Gran % (Auto) % Neut % (Auto) % Lymph % (Auto) % [place] % (Auto) % Eos % (Auto) % Baso % (Auto) % Neut # (Auto) (1.4-6.5) K/uL Lymph # (Auto) (1.2-3.4) K/uL [place] # (Auto) (0.11-0.59) K/uL Eos # (Auto) (0-0.5) K/uL Baso # (Auto) (0-0.2) K/uL Immature Gran # (Auto) (0.00-0.02) K/uL PT (9.0-12.0) Seconds INR (0.9-1.1) APTT (21.0-31.0) Seconds PTT Ratio Sodium (136-145) mmol/L Potassium (3.5-5.1) mmol/L Chloride (98-107) mmol/L Carbon Dioxide (21-32) mmol/L Anion Gap (3-11) BUN (7-18) mg/dl Creatinine (0.6-1.2) mg/dl Est Cr Clr Drug Dosing ml/min Est GFR ( Amer) Est GFR (Non-Af Amer) BUN/Creatinine Ratio (10-20) Glucose (70-99) mg/dl POC Glucose 88 (70-99) mg/dl Lactate (0.4-2.0) mmol/L Calcium (8.5-10.1) mg/dl Magnesium (1.8-2.4) mg/dl Total Bilirubin (0.2-1) mg/dl AST (15-37) U/L ALT (12-78) U/L Alkaline Phosphatase (45-117) U/L Ammonia (11-32) umol/L Total Creatine Kinase (26-192) U/L Total Protein (6.4-8.2) gm/dl Albumin (3.4-5.0) gm/dl Globulin (2.5-4.0) gm/dl Albumin/Globulin Ratio (0.9-2) Urine Color Urine Appearance (Clear) Urine pH (4.5-7.5) Ur Specific [place] (1.000-1.030) Urine Protein (Negative) Urine Glucose (UA) (Negative) Urine Ketones (Negative) Urine Blood (Negative) Urine Nitrite (Negative) Urine Bilirubin (Negative) Urine Urobilinogen (Negative) Ur Leukocyte Esterase (Negative) Urine WBC (Auto) (0-5) /hpf Urine RBC (Auto) (0-4) /hpf U Hyaline Cast (Auto) (0-5) /lpf U Epithel Cells (Auto) (0-5) /lpf Urine Bacteria (Auto) (Negative) Imaging Data My Impression: Chest x-ray negative. Airway clear. No pneumothorax. No co nsolidation. No cardiomegaly or cephalization.. No free air under the diaphragm. No fractures of the skeletal structures. Radiologist's Impression: PreliminaryFindingsOnly See Final Report For Complete Findings CT HEAD: Comparison: MRI brain 03/27/20. Studydegraded bymotion artifact. No evidence of acute ICH, mass effect, or edema. No skull fracture. Sinuses and mastoid air cells appear clear. Radiologist: Carmita Rachel M.D. Study ready at 22:56 and initial results transmitted at 22:57 MDM Narrative 2135: The patient was evaluated in room C12. A complete history and physical exam was performed. EMR reviewed. Patient has a history of insomnia, restless leg syndrome, acute encephalopathy, drug-induced akathisia, rheumatoid arthritis, hyponatremia, adrenal insufficiency and hypertension. EMR reviewed patient had rotator cuff surgery done by Dr. Pacheco on March 18, 2020. On March 27, 2020 the patient was seen in the emergency department for weakness and vomiting. Also seen for restless legs. Patient was taking prednisone at that time and Requip. Patient was given Cogentin and Ativan 7 mg total as well as Solu-Cortef in the emergency department. Patient lumbar puncture was performed which showed no signs of meningitis. Patient was hyponatremic and required hypertonic saline. It was thought that the patient was having drug- induced akathisia due to polypharmacy and her hyponatremia. Patient saw nephrology Dr. Medina on April 18. The patient was hyponatremic at that time. Dr. Medina did not think that her hyponatremia was causing her sy mptomology. Cardiac monitoring: An order was placed for continuous cardiac monitoring. The monitor shows a rate of 90 with sinus rhythm Family is extremely concerned about the patient receiving too many medications including and not limited to Ativan and Cogentin due to her previous emergency visit where she required to be intubated due to the medications she was given. I had a long discussion with them and they were in agreement to try 25 mg of Benadryl to help calm the patient down and help her sleep. 223: Labs show a glucose of 69. 1 amp of D50 ordered. Family is in agreement to take Ativan 0.5 mg at this time. 2300: Urinalysis shows possible UTI. Rocephin ordered. 2337: Vital signs stable. Patient continues to have chorea-like movements. Labs show UTI. Patient's blood sugar improved minimally with 1 amp of D50 going up into the 80s. Patient is not listed to be on any sulfonylureas, insulin, or metformin. Lactic acid and ammonia within normal limits. White blood cell count minimally elevated at 12.18. Sodium is 124, it does appear to be at the patient's baseline. Imaging within normal limits. [facility]gen notified 0030: Dr. Virgen evaluated the patient is asking that another amp of D50 be given. Impression & Plan Hypoglycemia, Acute hyponatremia, Acute UTI Discharge Plan Visit Data Chief Complaint: Leg Weakness, Bilateral Stated Complaint: LEG IS MOVING HASNT SLEPT FOR 2 DAYS ED Provider: Nahun Soler Discharge Problem: Hypoglycemia, Acute hyponatremia, Acute UTI Patient Disposition: Admitted As Inpatient Forms Stand Alone Forms: My [facility] Prescriptions Prescriptions: No Action levothyroxine 75 mcg tablet 75 mcg PO QAM Qty: 90 RF: 3 hydroxychloroquine [Plaquenil] 200 mg tablet 200 mg PO BID Qty: 180 RF: 3 ropinirole 2 mg tablet extended release 24 hr 2 mg PO DAILY Qty: 90 RF: 3 atorvastatin 80 mg tablet 80 mg PO HS Qty: 90 RF: 3 omeprazole 20 mg capsule,delayed release(DR/EC) 20 mg PO BID Qty: 180 RF: 3 ropinirole 0.25 mg tablet 0.25 mg PO HS Qty: 90 RF: 3 amlodipine 2.5 mg tablet 2.5 mg PO PM Qty: 30 RF: 5 multivitamin Tablet 1 tab PO QDD RF: 0 cholecalciferol (vitamin D3) [Vitamin D3] 2,000 unit Capsule 2,000 unit PO QAM RF: 0 sodium chloride 1 gram Tablet 1 g PO DAILY Qty: 30 RF: 0 lisinopril 10 mg tablet 20 mg PO PM Qty: 0 RF: 0 cyclobenzaprine 10 mg tablet 10 mg PO HS PRN (Reason: Muscle Spasm) RF: 0 diclofenac sodium 1 % gel 2 gm topical QID PRN (Reason: Pain) RF: 0 calcium carbonate [Calcium 600] 600 mg calcium (1,500 mg) tablet 600 mg PO BID RF: 0 acetaminophen 500 mg Tablet 1,000 mg PO Q6H PRN (Reason: Pain) RF: 0 Referrals Referrals: Burke Medina MD [Primary Care Provider] -
[2020-04-23] MEDS ORDERED: GLUCOSE 10 TABS/TUBE PO PRN (02:13)
[2020-04-23] MEDS ORDERED: DEXTROSE 50% 50 ML SYRINGE IV PRN (02:13)
[2020-04-23] MEDS ORDERED: CARBOHYDRATES FOR HYPOGLYCEMIA PO PRN (02:13)
[2020-04-23] MEDS ORDERED: GLUCOSE 40% GEL 15 GM TUBE PO PRN (02:13)
[2020-04-23] MEDS ORDERED: DICLOFENAC SOD 1% GEL 100 GM TUBE EXT PRN (02:13)
[2020-04-23] MEDS ORDERED: GLUCAGON FOR INJ 1 MG VIAL SQ PRN (02:13)
[2020-04-23] MEDS: SODIUM CHLORIDE 0.9% 500 ML IV SCH (02:16)
[2020-04-23] MEDS: SODIUM CHLORIDE 1 GM TABLET PO SCH ×3 (02:47→21:54)
[2020-04-23] MEDS: D5NSS + 20MEQ KCL 20 MEQ/1,000 ML BAG IV SCH ×2 (02:47→13:53)
[2020-04-23 06:04] LABS: T4 Free Thyroxine 1.23 ng/dl (0.8-1.6); Thyroid Stimulating Hormone 11.3 uIu/ml (0.300-4.500)
[2020-04-23 06:12] LABS: Albumin Level 3.1 gm/dl (3.4-5.0); BUN Creatinine Ratio 12.3 (10-20); Calcium 9.2 mg/dl (8.5-10.1); Creatinine Clr Calc Pharmacy 34.9 ml/min; Est GFR (African American) 63.7; Phosphorus 3.7 mg/dl (2.5-4.9); Potassium 4.4 mmol/L (3.5-5.1)
[2020-04-23] MEDS: ACETAMINOPHEN 500 MG TAB PO PRN ×2 (06:21→15:44)
[2020-04-23] MEDS ORDERED: LEVOTHYROXINE SODIUM 75 MCG TABLET PO SCH (06:30)
[2020-04-23 07:10] LABS: Lyme Ab IgG w/WB Rflx Negative (Negative); Lyme Ab IgM w/WB Rflx Negative (Negative)
--- NOTE | 2020-04-23 07:16 | CT Scan Report ---
HEAD CT NONCONTRAST CT DOSE: 844.62 mGy.cm HISTORY: choreiform movements TECHNIQUE: Multiaxial CT images of the head were performed without the use of intravenous contrast. A utomated exposure control was utilized for this study. A dose lowering technique was utilized adheri ng to the principles of ALARA. Comparison: Head CT 03/27/2020. Findings: Significant motion artifact resulting in near nondiagnostic evaluation of brain. The calvar ium and skull base are intact. The ventricles and sulci are within normal limits. There is no definit e mass, hematoma, midline shift, or acute infarct. Impression: Significant motion artifact resulting in near nondiagnostic evaluation of the brain. No definite acut e intracranial abnormality. ACT 112: Negative or not required by law. Electronically signed by: Guillermo Tolbert M.D. 04/23/2020 7:15 AM
--- NOTE | 2020-04-23 07:41 | XRay Report ---
XR chest 1V portable HISTORY: SEPSIS COMPARISON: Chest 03/28/2020. FINDINGS: No pneumothorax. No pleural effusions. No focal lung consolidations to suggest pneumonia. N o evidence for pulmonary edema. The heart remains mildly enlarged. There is a large hiatus hernia, un changed. IMPRESSION: Stable cardiomegaly and a large hiatus hernia. ACT 112: Negative or not required by law. Electronically signed by: Guillermo Tolbert M.D. 04/23/2020 7:40 AM
--- NOTE | 2020-04-23 10:43 | Hospitalist Progress Note ---
Date of Service April 23, 2020 Assessment & Plan Admission and Anticipated Discharge Date Admission Date: April 23, 2020 79-year-old female with a past medical history including restless leg syndrome, insomnia, acute encephalopathy, drug-induced akathisia, rheumatoid arthritis, hyponatremia, acute adrenal insufficiency, hypercholesterolemia, hypertension, hypothyroidism, inflammatory polyarthritis, history of Hodgkin's disease, retroperitoneal fibrosis, CKD, mixed urinary incontinence and history of right total knee arthroplasty. She was most recently admitted to [facility] from March 27 through March 30 for similar symptoms. The patient's symptoms were thought to be due to drug side effect. Family reports that her PCP was concerned about patient possibly being on too many medications. Acute encephalopathy/drug-induced akathisia- Patient's symptoms today, appear to be similar to previous admission. rehydrated We will hold hydroxychloroquine, which may be contributing to hypoglycemia, and ropinirole, which may be contributing to abnormal body movements. Lyme disease negative, TSH elevated at 11.3, free T4 wnl 1.23 - will give Mg. Sulfate 2g Consult neurology - taper Ropinirole - add Gabapentin Acute UTI: Urine culture grew GNB, but given patient is without symptoms assume asymptomatic bacteremia discontinued empiric ceftriaxone 1 g IV every 24 hours begun in the ED. Hypoglycemia: Glucose was 69 on entrance BMP, and only improved to 88 after 1 amp of D50. Was give 1 amp of D50. -placed on D5 NSS + KCl 20 mEq at 100 mils per hour. Chronic hyponatremia: Sodium was 124 upon admission, and was 123 upon discharge on April 01. - sodium has normalized, hydrate as noted above. Drug induced akathisia: See above Hypothyroidism: - TSH 11.3, FT4 41.23 - may be contributing to hyponatremia. Rheumatoid arthritis: For now, holding hydroxychloroquine. - Patient is noted to have history of acute adrenal insufficiency. - Will hold off on adding any additional medications at this time, due to issues noted with previous hospitalization Hypercholesterolemia: Continue atorvastatin if the patient is able to take, otherwise will be held Hypertension: Holding lisinopril and amlodipine for now, as patient will be primarily n.p.o. due to current mental status DVT: SCD's Code: full Diet: regular Supervising Physician Co-Signing Physician Notes I personally examined the patient and verified all haynes points of history and exam, discussed case, and agree with decision making with Dr Varela. legs a little better than before. neuro input appreciated. vitals noted nad mild involuntary leg movements no focal neuro deficits dyskinesia - agree likely requip. agree w gabapentin. will give mag sulfate tonight to try to help ease restlessness during the transition otherwise as above Subjective Brought up that it has been since Tuesday evening at 11PM that she slept last. She has tried Ambien in the past but had a fall on this. She has also tried Melatonin 5 mg once and 10 mg once and did not have improvement in the past. She has had RSL since 2004 and was planning to see Dr. Dougherty on . Review of Systems Review of Systems: Constitutional: denies fevers, chills Cardiology: denies chest pain or palpitations Pulmonary: denies cough, shortness of breath : admits increased frequency (relates to IV fluid), denies urgency and dysuria [not feeling similar to prior UTI's] Physical Exam Constitutional: WD/WN, vitals as above Eyes: PERRL, conjunctivae normal, anicteric sclerae Neck: normal visual inspection Respiratory: normal respiratory effort, lungs clear to auscultation Cardiovascular: RRR, no murmur, no edema Gastrointestinal (Abdomen): normal bowel sounds, soft, nontender, no hepatosplenomegaly Musculoskeletal: - writhing movements of the lower extremity with continual movement - able to stop the movements while examining her lower extremity - increased reflexes bilaterally in the lower extremity Skin: no rashes, warm and dry Results & Data Results & Data ([facility]) Vital Signs (Past 12 Hours) Vital Signs Temp Pulse Pulse Pulse Resp BP Pulse Ox 04/23/20 07:00 36.8 C 100 H 18 162/51 H 94 04/23/20 03:13 107 H 04/23/20 02:11 36.9 C 101 H 18 160/75 H 97 04/23/20 00:00 99 H 18 155/84 H 96 04/22/20 22:51 98 H 18 96 CBC Results Results Complete Blood Count Results: RBC 3.67 M/uL (4.2-5.4) L 04/22/20 WBC 12.18 K/uL (4.8-10.8) H 04/22/20 Hgb 11.3 g/dL (12.0-16.0) L 04/22/20 Hct 32.4 % (37-47) L 04/22/20 Plt Count 284 K/uL (130-400) 04/22/20 Chemistry ([facility]) Results [facility] Results: Sodium 131 mmol/L (136-145) L 04/23/20 Potassium 4.4 mmol/L (3.5-5.1) 04/23/20 Chloride 101 mmol/L (98-107) 04/23/20 BUN 12 mg/dl (7-18) 04/23/20 Creatinine 0.99 mg/dl (0.6-1.2) 04/23/20 Glucose 79 mg/dl (70-99) 04/23/20 Resident Activity Tracking Resident Involvement: Resident Care Provided Care Provided: Adult Hospital Medicine
[2020-04-23 13:57] LABS: Folate (Folic Acid) > 24.00 ng/ml (>5.38); Vitamin B12 695 pg/ml (211-911)
--- NOTE | 2020-04-23 14:36 | Neurology Consultation ---
Date of Consultation April 23, 2020 Assessment & Plan (1) Dyskinesia: Shruthi Brannon is a 79 yo woman w/ PMH of HTN, HLD, hypothyroidism, h/o Hodkin's lymphoma, CKD, GERD, chronic hyponatremia, RLS, RA and scoliosis who p/t [facility] with worsening restless legs. # Dyskinesias with acute worsening: her exam is most c/w dyskinesia, no clear restless legs from her description and the video provided by her daughter. Worry that the cause of her her symptoms could be 2/2 ropinirole ER and excessive dopamine (https://www.nejm.org/doi/full/10.1056/ytrv981351095573586) as dyskinesias are a relatively common side effect of buttermaker continuous churn use. Cannot r/o effect of worsening hypothyroidism (https://journals.HipLogiqpub.com/doi/10.1177/9378067548475283) - transition to immediate release formulation only and wean as follows: 0.5mg bid for 4 days, then 0.5mg qhs for 3 days, then stop - start gabapentin 300mg qhs (2-3 hours prior to sleep). Can uptitrate as needed in 1-2 weeks if she notices worsening restless legs symptoms. This may also help with her sleep which was another issue that she discussed. - treatment of hypothyroidism per primary team Thank you for this interesting consult. Plan of care discussed with primary team. Please call or text with questions. (2) Restless leg syndrome: (3) Hypothyroidism: (4) Rheumatoid arthritis: History of Present Illness Attending Physician: Randall Hoskins DO History of Present Illness Shruthi Brannon is a 79 yo woman w/ PMH of HTN, HLD, hypothyroidism, h/o Hodkin's lymphoma, CKD, GERD, chronic hyponatremia, RLS, RA and scoliosis who p/t [facility] with worsening restless legs. In the ED, she was afebrile with BP 146/83, HR 89, RR 20, satting 95% on room air. Labs notable for WBC 12.18, hemoglobin 11.3, platelets 284, sodium 124, potassium 4.3, chloride 92, creatinine 0.95, glucose low at 69, INR 1.0, calcium/magnesium within normal, LFTs within normal, CK 182, ammonia 14.4, lactate 1.9, UA with 1+ blood/pyuria/positive leukoesterase but no bacteria. Further lab work showed B12 695, folate >24, TSH elevated at 11.3 with normal free T4, Lyme negative. Independently reviewed CT head that shows no clear hemorrhage or new hypodensity though there is significant motion artifact; there is also calcification noted predominantly in the right mesial temporal lobe and trace calcification in the left basal ganglia. When she was admitted last month with similar movements, she had ferritin 310. On examination today, she reports that she has a several year history of what she calls "involuntary leg movements" that sometimes spreads to her trunk or arms. These events are distractible and also occur during sleep. She denies any urge to move her legs or temporary relief of any abnormal sensation when she moves her legs. Leg movements have been around since at least 2004 and feel like they have worsened slowly over time with acute periods of worsening like what prompted her current admission. Asked her PCP to start her on requip (not sure when); is currently on requip ER and IR. Denies any triggers, anything that makes symptoms better/worse, denies significant caffeine or alcohol intake. No family h/o movement disorders that she is aware of. Denies any exposure to antipsychotics now or in the past. Allergies Allergy/AdvReac Type Severity Reaction Status Date / Time No Known Drug Allergies Allergy Unknown Verified 04/22/20 23:34 Home Medications Home Medications Medication Instructions Recorded Confirmed Type cholecalciferol (vitamin D3) 2,000 unit PO QAM 05/05/18 04/22/20 History [Vitamin D3] multivitamin 1 tab PO QDD 05/05/18 04/22/20 History calcium carbonate 600 mg calcium 600 mg PO BID tab 06/19/19 04/22/20 History (1,500 mg) tablet atorvastatin 80 mg tablet 80 mg PO HS #90 tab 07/16/19 04/22/20 Rx omeprazole 20 mg capsule,delayed 20 mg PO BID #180 cap 07/16/19 04/22/20 Rx release levothyroxine 75 mcg tablet 75 mcg PO QAM #90 tab 10/19/19 04/22/20 Rx hydroxychloroquine 200 mg tablet 200 mg PO BID #180 tab 01/31/20 04/22/20 Rx acetaminophen 1,000 mg PO Q6H PRN 03/06/20 04/22/20 History lisinopril 20 mg PO PM #0 tab 03/30/20 04/22/20 Rx sodium chloride 1 g PO DAILY #30 tab 03/30/20 04/22/20 Rx ropinirole 2 mg tablet,extended 2 mg PO DAILY #90 tab 04/08/20 04/22/20 Rx release 24 hr amlodipine 2.5 mg tablet 2.5 mg PO PM #30 tab 04/18/20 04/22/20 Rx ropinirole 0.25 mg tablet 0.25 mg PO HS #90 tab 04/18/20 04/22/20 Rx cyclobenzaprine 10 mg PO HS PRN 04/22/20 04/22/20 History diclofenac sodium 2 gm TOPICAL QID PRN 04/22/20 04/22/20 History Patient History Medical History Acid reflux 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 Dysuria Hiatal hernia History of Hodgkin's lymphoma S/P RADIATION/CHEMO (2000) History of pelvic fracture Hyperlipidemia Hypertension Hypothyroidism Mixed stress and urge urinary incontinence Restless leg syndrome Rheumatoid arthritis ON PLAQUENIL AND CHRONIC PREDNISONE 7.5MG DAILY Sciatica Scoliosis Surgical History H/O foot surgery 2ND RT TOE REMOVED History of bilateral cataract extraction RIGHT CATARACT EXTRACTION WITH IOL= 04/05/18= MAC SEDATION AT [facility] History of colonoscopy History of gynecologic surgery ANTERIOR AND POSTERIOR REPAIR - colporrhaphy (for pelvic relaxation) History of removal of cyst HEAD (BENIGN) History of tonsillectomy History of tooth extraction History of total knee replacement RT History of urologic surgery URETEROLYSIS- 04/1995 [facility] [place] [place] S/P vaginal hysterectomy Family History Mother , age 80 Cardiac disorder Family history of lung cancer Brother Diabetes Family history of lung cancer Family history of diabetes mellitus Daughter Breast cancer Father , age 57 Cardiac disorder Grandmother Diabetes Aunt Ovarian cancer paternal aunt Grandmother (Paternal) Family history of diabetes mellitus Denies family history of Colon cancer Colorectal cancer Social History Smoking Status: Never smoker Tobacco Type: Cigarettes Cigarettes Per Day: QUIT + 30 YEARS AGO; Second Hand Exposure: No; Hx Alcohol Use: No Hx Substance Use: No Preferred Language: Faroese Communication Ability: Effective Visual Impairment: No Limitations Wet Washer Machine Required: No Beliefs That Will Affect Care: None marital status: / Current Living Situation: Family Current Living Situation Comment: daughter 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 Exam (Neuro) Physical Exam: General Exam: GEN: NAD, sitting in chair. HEENT: No conjunctival injection, no rhinorrhea. CV: RRR, no peripheral edema PULM: Nonlabored respirations on room air. Neuro Exam: MS: Awake and Alert. Oriented to person, place, and date. Speech fluent and appropriate without dysarthria or paraphasic errors. Language intact including naming, comprehension, repetition. Cognition and memory grossly intact. Attention intact. No neglect. CN: Visual anna full. No extinction to double simultaneous stimuli. No clear optic disc edema on fundoscopic exam. PERRLA OU, pupils pinpoint. EOMI without nystagmus. Facial sensation intact to LT. Facial muscles full and symmetric. Hearing intact to conversation. Uvula midline with symmetric palatal elevation. Shoulder shrug normal. Tongue midline. MOTOR: Normal bulk and tone. No pronator drift. LUE strength 5/5 at deltoids, biceps, triceps, wrist flexors and extensors (difficult to assess RUE given recent shoulder surgery/pain); 5/5 hand grasp bilaterally. BLE strength 5/5 at iliopsoas, hamstrings, quadriceps, tibialis anterior, and gastrocnemius bilaterally. + dyskinesias in BLEs that would stop when distracted REFLEXES: 1+ at biceps, triceps, brachioradialis, absent patella and absent Achilles bilaterally. Flexor plantar responses bilaterally. SENSORY: Intact to LT without extinction to double simultaneous stimuli. Vibration intact in BUEs, diminished in BLEs up to her knees. COORDINATION: No dysmetria or ataxia on [id number] and roif-rt-daze b ilaterally. Normal Flaok bilaterally. GAIT: deferred given physical status Results & Data ([facility]) Vital Signs (Past 12 Hours) Vital Signs Temp Pulse Pulse Resp BP Pulse Ox 04/23/20 11:37 36.9 C 84 20 145/74 H 96 04/23/20 08:00 96 H 04/23/20 07:00 36.8 C 100 H 18 162/51 H 94 04/23/20 03:13 107 H PG Care Time/CCT Total # of Minutes Spent Total Time Spent with Patient: Total time spent is greater than 50% in coordination of care (as documented) at patient's floor/unit and/or counseling patient: Coding Level of Care Code 49337 Initial Inpt Care Lvl 3 Diagnoses Dyskinesia G24.9 Restless leg syndrome G25.81 Hypothyroidism E03.9 Rheumatoid arthritis M06.9
[2020-04-23] MEDS ORDERED: GABAPENTIN 300 MG CAP PO SCH (18:00)
--- NOTE | 2020-04-23 18:40 | Communication Note ---
Date of Service: April 23, 2020 asked to clarify re ?CKD - not clear - given age, cockroft gault becomes less accurate. technically creatinine in normal range. possible CKD but hard to truly tell or stage without 24hr urine which would not be of clinical utility
[2020-04-23] MEDS ORDERED: ATORVASTATIN 40 MG TAB PO SCH (21:00)
[2020-04-23] MEDS: rOPINIRole HCL 0.25 MG TABLET PO SCH (21:53)
[2020-04-23] MEDS ORDERED: cefTRIAXone SODIUM 1,000 MG in DEXTROSE 5% 50 ML IV SCH (22:00)
[2020-04-23] MEDS: MAGNESIUM SULFATE / D5W 1 GM/100 ML BAG IV SCH (22:00)
[2020-04-24 06:01] LABS: Basophils # (auto) 0.02 K/uL (0-0.2); Basophils % (auto) 0.3 %; Eosinophils # (auto) 0.01 K/uL (0-0.5); Eosinophils % (auto) 0.2 %; Hematocrit (blood only) 31.2 % (37-47); Hemoglobin 10.7 g/dL (12.0-16.0); Immature Granulocytes # (auto) 0.02 K/uL (0.00-0.02); Immature Granulocytes % (auto) 0.3 %; Lymphocytes % (auto) 30.3 %; Mean Corpuscular Hemoglobin 31.1 pg (25-34); Mean Corpuscular Hgb Conc 34.3 g/dL (32-36); Mean Corpuscular Volume 90.7 fL (80-100); Mean Platelet Volume 7.6 fL (7.4-10.4); Monocytes # (auto) 0.71 K/uL (0.11-0.59); Monocytes % (auto) 11.3 %; Neutrophils # (auto) 3.61 K/uL (1.4-6.5); Neutrophils % (auto) 57.6 %; Platelet Count 250 K/uL (130-400); RDW Coefficient of Variation 13.6 % (11.5-14.5); RDW Standard Deviation 45.2 fL (36.4-46.3); Red Blood Count 3.44 M/uL (4.2-5.4); White Blood Count 6.27 K/uL (4.8-10.8)
[2020-04-24 06:26] LABS: Albumin Level 2.8 gm/dl (3.4-5.0); BUN Creatinine Ratio 13.7 (10-20); Calcium 8.7 mg/dl (8.5-10.1); Est GFR (African American) 70.5; Est GFR (Non-African American) 60.9; Potassium 4.4 mmol/L (3.5-5.1)
[2020-04-24 06:27] LABS: Phosphorus 4.2 mg/dl (2.5-4.9)
[2020-04-24] MEDS ORDERED: LEVOTHYROXINE SODIUM 88 MCG TABLET PO SCH (06:30)
[2020-04-24] MEDS: MAGNESIUM SULFATE / D5W 1 GM/100 ML BAG IV SCH (07:36)
[2020-04-24] MEDS: ACETAMINOPHEN 500 MG TAB PO PRN (07:43)
[2020-04-24] MEDS: SODIUM CHLORIDE 1 GM TABLET PO SCH (07:43)
[2020-04-24] MEDS: rOPINIRole HCL 0.25 MG TABLET PO SCH (07:43)
--- NOTE | 2020-04-24 14:28 | Discharge Summary ---
Date of Service April 24, 2020 Admission HPI Per Admitting Provider The patient is a 79-year-old female with a past medical history including restless leg syndrome, insomnia, acute encephalopathy, drug-induced akathisia, rheumatoid arthritis, hyponatremia, acute adrenal insufficiency, hypercholesterolemia, hypertension, hypothyroidism, inflammatory polyarthritis, history of Hodgkin's disease, retroperitoneal fibrosis, CKD, mixed urinary incontinence and history of right total knee arthroplasty. She was most recently admitted to [facility] from March 27 through March 30 for similar symptoms, and at that time developed acute respiratory compromise, requiring intubation and ICU admission. The patient symptoms were thought to be due to drug side effect. Family reports that her PCP was concerned about patient possibly being on too many medications. The patient herself was unable to contribute to the HPI or review of systems, and is in constant motion during examination, with twisting upper body and lower extremities [id number] in a writhing motion. Principal Diagnosis dyskinesia Discharge Exam Constitutional WD/WN, vitals as above Eyes PERRL, conjunctivae normal, anicteric sclerae Neck normal visual inspection Respiratory normal respiratory effort, lungs clear to auscultation Cardiovascular RRR, no murmur, no edema Gastrointestinal (Abdomen) normal bowel sounds, soft, nontender, no hepatosplenomegaly Skin no rashes, warm and dry Discharge Data Allergies Allergy/AdvReac Type Severity Reaction Status Date / Time No Known Drug Allergies Allergy Unknown Verified 04/22/20 23:34 Consultations 04/22/20 23:37 ED Decision to Admit Stat 04/23/20 02:13 Consult Case Management - Discharge Planning Routine Consult Neurology Routine Ordered Studies 04/22/20 21:42 CT head/brain wo con Urgent Hospital Course (1) Dyskinesia: 79-year-old female with a past medical history including restless leg syndrome, insomnia, acute encephalopathy, drug-induced akathisia, rheumatoid arthritis, hyponatremia, acute adrenal insufficiency, hypercholesterolemia, hypertension, hypothyroidism, inflammatory polyarthritis, history of Hodgkin's disease, retroperitoneal fibrosis, CKD, mixed urinary incontinence and history of right total knee arthroplasty. Presenting with insomnia for 2 days that was secondary to leg movement that were uncontrollable per the patient patient's symptoms were thought to be due to drug side effect (Ropinirole) vs. functional vs. hypothyroidism induced. Uncontrolled leg movements leading to insomnia Lyme disease negative, TSH elevated at 11.3, free T4 wnl 1.23 Consult neurology - taper Ropinirole IR .5 BID 4 days, .5 qhs 3 days then stop - add Gabapentin 300 mg QHS, to help with symptoms and sleep disturbance Acute UTI: - Urine culture grew GNB, and patient was on ceftriaxone in the ER but picture seems more consistent with asymptomatic bacteremia given lack of UTI symptoms Hypoglycemia: - Glucose was 69 on entrance BMP, and only improved during course Chronic hyponatremia: - Sodium was 124 upon admission, and was 123 upon discharge on April 01. - sodium normalized over hospital course Hypothyroidism: - TSH 11.3, FT4 1.23 - may be contributing to hyponatremia. - further evaluation and treatment per primary care provider Rheumatoid arthritis: - holding hydroxychloroquine during hospitalization - discharged on home medication Hypercholesterolemia: - Continue atorvastatin Hypertension: - continue home medications By CMS guidelines, a determination that the admission or continued stay is not medically necessary has been made by a member of the UR committee and a physician for this hospital stay, therefore a Code 44 will be completed and the Inpatient admission will be changed to outpatient. Total Time Total Time Spent Total Time Spent (In Minutes): <30 Discharge Plan Discharge Items Patient Disposition: Home - Self-Care Reason For Visit: DYSKINESIA, UTI Discharge Diagnosis: Dyskinesia Activity: Per Instructions section Non-emergency contact: Primary Care Provider and Neurologist Call non-emergency contact if: your symptoms worsen Follow-up/Referrals: Burke Medina MD [Primary Care Provider] - 04/30/20 2:00 pm Tien Dougherty MD [Physician] - (Dr. Dougherty's office will call you to reschedule your appt. that was to be today. If you don't hear from them by Tuesday, please call their office at [phone] for appt.) Diet: Regular Addtl Attending Provider Instructions: Leg movements You came to the hospital in part for worsening movement of your legs. We are decreasing the dose of your Ropinirole. We are also adding Gabapentin that may take some time to work effectively, and this will also help with sleep. Trouble with sleep You had not slept for multiple days and were only having a couple hours of sleep prior to this. You will be using the Gabapentin for your leg movements and this may help in two ways. 1. It will decrease the leg movements and this was keeping you awake. 2. This will cause drowsiness as a side effect which will be helpful for you. Ropinirole - transition to immediate release formulation only and wean as follows: 0.5mg bid for 4 days, then 0.5mg qhs for 3 days, then stop. Gabapentin - start gabapentin 300mg qhs (2-3 hours prior to sleep). Can increase as needed in 1-2 weeks. Hypothyroidism You will need to follow up with your primary doctor to further evaluate and treat your hypothyroidism. Pending Studies at Discharge: Yes Studies:: blood cultures no growth at 24H Stand-Alone Forms: My [facility], Smoking Cessation Medications and DC Order Prescriptions: New gabapentin 300 mg capsule 300 mg PO HS Qty: 30 RF: 0 ropinirole 0.5 mg tablet See Rx Instructions .ROUTE .COMPLEX Qty: 11 RF: 0 Continued levothyroxine 75 mcg tablet 75 mcg PO QAM Qty: 90 RF: 3 hydroxychloroquine [Plaquenil] 200 mg tablet 200 mg PO BID Qty: 180 RF: 3 atorvastatin 80 mg tablet 80 mg PO HS Qty: 90 RF: 3 omeprazole 20 mg capsule,delayed release(DR/EC) 20 mg PO BID Qty: 180 RF: 3 ropinirole 0.25 mg tablet 0.25 mg PO HS Qty: 90 RF: 3 amlodipine 2.5 mg tablet 2.5 mg PO PM Qty: 30 RF: 5 multivitamin Tablet 1 tab PO QDD RF: 0 cholecalciferol (vitamin D3) [Vitamin D3] 2,000 unit Capsule 2,000 unit PO QAM RF: 0 sodium chloride 1 gram Tablet 1 g PO DAILY Qty: 30 RF: 0 lisinopril 10 mg tablet 20 mg PO PM Qty: 0 RF: 0 cyclobenzaprine 10 mg tablet 10 mg PO HS PRN (Reason: Muscle Spasm) RF: 0 diclofenac sodium 1 % gel 2 gm topical QID PRN (Reason: Pain) RF: 0 calcium carbonate [Calcium 600] 600 mg calcium (1,500 mg) tablet 600 mg PO BID RF: 0 acetaminophen 500 mg Tablet 1,000 mg PO Q6H PRN (Reason: Pain) RF: 0 Discontinued ropinirole 2 mg tablet extended release 24 hr 2 mg PO DAILY Qty: 90 RF: 3 Discharge Orders: Discharge Order (Routine); Ordered 04/24/20 Ordered By: Carmelo Saunders/Other Patient Handouts: Controlling High Blood Pressure, Hypoglycemia (Low Blood Sugar) Admission Data Admit Date/Time: 04/23/20 00:57 Attending Provider: Randall Hoskins Admit Provider: Axel Celis Primary Care Provider: Burke Medina Other Providers: Axel Celis ; Tien Dougherty Other Interventions: Discharge Summary Assessment (RN) Last Done: 04/24/20 15:58 Supervising Physician Co-Signing Physician Notes I personally examined the patient and verified all haynes points of history and exam, discussed case, and agree with decision making with Dr Varela. slept well. legs feeling better. feels like going home. vitals noted nad mild involuntary leg movements no focal neuro deficits dyskinesia - requip as possible culprit. also concern on possibly some functional. wean requip, started on gabapentin. stable for home. otherwise as above otherwise as above Resident Activity Tracking Resident Involvement: Resident Care Provided Care Provided: Adult Hospital Medicine CBC Results Results Complete Blood Count Results: RBC 3.44 M/uL (4.2-5.4) L 04/24/20 WBC 6.27 K/uL (4.8-10.8) 04/24/20 Hgb 10.7 g/dL (12.0-16.0) L 04/24/20 Hct 31.2 % (37-47) L 04/24/20 Plt Count 250 K/uL (130-400) 04/24/20 Chemistry (BMP) Results BMP Results: Sodium 133 mmol/L (136-145) L 04/24/20 Potassium 4.4 mmol/L (3.5-5.1) 04/24/20 Chloride 103 mmol/L (98-107) 04/24/20 BUN 13 mg/dl (7-18) 04/24/20 Creatinine 0.91 mg/dl (0.6-1.2) 04/24/20 Glucose 78 mg/dl (70-99) 04/24/20
--- NOTE | 2020-04-24 15:01 | Communication Note ---
Date of Service: April 24, 2020 By CMS guidelines, a determination that the admission or continued stay is not medically necessary has been made by a member of the UR committee and a physician for this hospital stay, therefore a Code 44 will be completed and the Inpatient admission will be changed to outpatient. Burke Araujo MD Member, Utilization Review Committee
--- NOTE | 2020-04-24 15:07 | Neurology Progress Note ---
Date of Service April 24, 2020 Assessment & Plan (1) Dyskinesia: Shruthi Brannon is a 79 yo woman w/ PMH of HTN, HLD, hypothyroidism, h/o Hodkin's lymphoma, CKD, GERD, chronic hyponatremia, RLS, RA and scoliosis who p/t [facility] with worsening restless legs. # Dyskinesias with acute worsening: her exam is most c/w dyskinesia, no clear restless legs from her description and the video provided by her daughter. Worry that the cause of her her symptoms could be 2/2 ropinirole ER and excessive dopamine (https://www.nejm.org/doi/full/10.1056/mkuh234418110509589) as dyskinesias are a relatively common side effect of custodial use. Cannot r/o effect of worsening hypothyroidism (https://journals.[employer].com/doi/10.1177/0437669106431981). Improved since starting gabapentin and weaning down ropinirole dose. - transition to immediate release formulation only and wean as follows: 0.5mg bid for 3 days (last bid dose AM of 04/27) , then 0.5mg qhs for 3 days, then stop (last dose PM of 04/30) - start gabapentin 300mg qhs (2-3 hours prior to sleep). Can uptitrate as needed in 1-2 weeks if she notices worsening restless legs symptoms. This may also help with her sleep which was another issue that she discussed. - treatment of hypothyroidism and RA per primary team - follow up with Dr Dougherty as newly scheduled Thank you for this interesting consult. Plan of care discussed with primary team. Please call or text with questions. (2) Restless leg syndrome: (3) Hypothyroidism: (4) Rheumatoid arthritis: Admission and Anticipated Discharge Date Admission Date: April 23, 2020 Subjective NAEs overnight. Doing much better today. Was able to finally sleep overnight. Denies any side effects or difficulties with new medication. Was inquiring about her RA medications. Review of Systems Review of Systems: 14 point review of systems completed and negative except as in HPI. Results & Data ([facility]) Vital Signs (Past 12 Hours) Vital Signs Temp Pulse Resp BP Pulse Ox 04/24/20 06:55 37.2 C 77 18 166/84 H 97 Exam (Neuro) Physical Exam: General Exam: GEN: NAD, sitting in chair. HEENT: No conjunctival injection, no rhinorrhea. CV: RRR, no peripheral edema PULM: Nonlabored respirations on room air. Neuro Exam: MS: Awake and Alert. Oriented to person, place, and date. Speech fluent and appropriate without dysarthria or paraphasic errors. Language intact including naming, comprehension, repetition. Cognition and memory grossly intact. Atte ntion intact. No neglect. CN: Visual anna full. No extinction to double simultaneous stimuli. No clear optic disc edema on fundoscopic exam. PERRLA OU, pupils pinpoint. EOMI without nystagmus. Facial sensation intact to LT. Facial muscles full and symmetric. Hearing intact to conversation. Uvula midline with symmetric palatal elevation. Shoulder shrug normal. Tongue midline. MOTOR: Normal bulk and tone. No pronator drift. LUE strength 5/5 at deltoids, biceps, triceps, wrist flexors and extensors (difficult to assess RUE given recent shoulder surgery/pain); 5/5 hand grasp bilaterally. BLE strength 5/5 at iliopsoas, hamstrings, quadriceps, tibialis anterior, and gastrocnemius bilaterally. No dyskinesias noted on examination today. REFLEXES: 1+ at biceps, triceps, brachioradialis, absent patella and absent Achilles bilaterally. Flexor plantar responses bilaterally. SENSORY: Intact to LT without extinction to double simultaneous stimuli. Vibration intact in BUEs, diminished in BLEs up to her knees. COORDINATION: No dysmetria or ataxia on [id number] and ctoy-ko-shvy bilaterally. Normal Flako bilaterally. GAIT: deferred given physical status PG Care Time/CCT Total # of Minutes Spent Total Time Spent with Patient: Total time spent is greater than 50% in coordination of care (as documented) at patient's floor/unit and/or counseling patient: Coding Level of Care Code 63767 Subseq Hosp Care Lvl 2 Diagnoses Dyskinesia G24.9 Restless leg syndrome G25.81 Hypothyroidism E03.9 Rheumatoid arthritis M06.9
--- NOTE | 2020-04-24 19:56 | Billing Data ---
Date of Service April 24, 2020 Coding Level of Care Code 36292 OBS Care - Discharge
[2020-04-24] MEDS ORDERED: lisinopril 20 MG TAB PO SCH (21:00)
[2020-04-24] MEDS ORDERED: amLODIPine BESYLATE 5 MG TAB PO SCH (21:00)
== END 2020-04-24 16:28 | disposition home or self-care (01) ==
LOC: ED 20:51 → INTOOBSV 04-23 00:57 → 2S 04-23 00:57 → SUATTDRO 04-23 00:57 → 2S 04-23 01:38 → 3N 04-23 18:38

== ENCOUNTER 2022-03-06 08:55 | Inpatient (IN) ==
[2022-03-06] MEDS ORDERED: ONDANSETRON INJ 2 MG/ML 2 ML VIAL IV STA (09:15)
[2022-03-06] MEDS ORDERED: SODIUM CHLORIDE 0.9% 500 ML IV SCH (09:15)
--- NOTE | 2022-03-06 09:19 | Emergency Department Note ---
History of Present Illness General Chief complaint: Chest Pain Stated complaint: PUT IN DEFIB ON TUES/VOMITING/CHEST PAIN Time Seen by Provider: 03/06/22 09:01 History of Present Illness Maximum Pain Intensity: 3 81-year-old female presents to the ED with a chief complaint of nausea and dry heaves. The patient just got home from [place] last night around midnight. She started having the symptoms this morning. She was discharged from a hospital in [place] after having a ST elevation SD. The patient had her heart attack on a week ago. The patient's hospitalization, she also developed ventricular tachycardia and an AICD was placed. The patient does have some mild chest discomfort this morning. She rates it a 3/10. No fevers. While she was in the hospital, she was treated with antibiotics for a UTI as well. Denies diarrhea Home Medications Medication Instructions Recorded Confirmed Type cholecalciferol (vitamin D3) 50 2,000 unit PO QAM 05/05/18 03/06/22 History mcg (2,000 unit) capsule (Vitamin D3) multivitamin 1 tab PO QDD 05/05/18 03/06/22 History calcium carbonate 600 mg calcium 600 mg PO BID 06/19/19 03/06/22 History (1,500 mg) tablet (Calcium) ascorbic acid (vitamin C) 500 mg 500 mg PO DAILY #30 tabs 08/21/20 03/06/22 Rx tablet ferrous sulfate 325 mg (65 mg 325 mg PO DAILY #30 tabs 08/21/20 03/06/22 Rx iron) tablet,delayed release amlodipine 2.5 mg tablet 2.5 mg PO DAILY #90 tabs 04/24/21 03/06/22 Rx acetaminophen 500 mg tablet 1,000 mg PO Q8H PRN Pain 06/30/21 03/06/22 History omeprazole 20 mg capsule,delayed 20 mg PO BID #180 caps 07/29/21 03/06/22 Rx release lisinopril 10 mg tablet 20 mg PO HS 08/13/21 03/06/22 History cyclobenzaprine 5 mg tablet 5 mg PO BID PRN muscle spasm #60 11/02/21 03/06/22 Rx tabs levothyroxine 100 mcg tablet 100 mcg PO DAILY #14 tabs 11/02/21 03/06/22 Rx atorvastatin 80 mg tablet 80 mg PO HS #90 tabs 12/14/21 03/06/22 Rx hydroxychloroquine 200 mg tablet 200 mg PO DAILY #90 tabs 12/29/21 03/06/22 Rx (Plaquenil) tramadol 50 mg tablet 50 mg PO Q8H PRN pain #90 tabs 02/01/22 03/06/22 Rx rotigotine 1 mg/24 hour 1 mg transdermal DAILY #90 ea 02/02/22 03/06/22 Rx transdermal 24 hour patch (Neupro) diclofenac sodium 1 % topical gel 2 g topical QID PRN Pain #100 grams 02/03/22 03/06/22 Rx Brilinta 90 mg PO BID 03/06/22 03/06/22 History amiodarone 200 mg PO DAILY 03/06/22 03/06/22 History aspirin 81 mg PO DAILY 03/06/22 03/06/22 History losartan 25 mg tablet (Cozaar) 25 mg PO DAILY 03/06/22 03/06/22 History metoprolol succinate 100 mg PO DAILY 03/06/22 03/06/22 History Allergies Allergy/AdvReac Type Severity Reaction Status Date / Time No Known Drug Allergies Allergy Unknown Verified 03/06/22 11:47 Past Med/Surg History Medical History Acid reflux Acute encephalopathy Acute hyponatremia Acute SD Acute UTI 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 Dysuria Hiatal hernia History of Hodgkin's lymphoma S/P RADIATION/CHEMO (2000) History of pelvic fracture Hyperlipidemia Hypertension Hypothyroidism Mixed stress and urge urinary incontinence Restless leg syndrome Rheumatoid arthritis ON PLAQUENIL AND CHRONIC PREDNISONE 7.5MG DAILY Sciatica Scoliosis Stage 3b chronic kidney disease Surgical History H/O foot surgery 2ND RT TOE REMOVED History of bilateral cataract extraction RIGHT CATARACT EXTRACTION WITH IOL= 04/05/18= MAC SEDATION AT [facility] History of colonoscopy History of gynecologic surgery ANTERIOR AND POSTERIOR REPAIR - colporrhaphy (for pelvic relaxation) History of removal of cyst HEAD (BENIGN) History of tonsillectomy History of tooth extraction History of total knee replacement RT History of urologic surgery URETEROLYSIS- 04/1995 [facility] S/P vaginal hysterectomy Family History Mother , age 80 Cardiac disorder Family history of lung cancer Brother Diabetes Family history of lung cancer Family history of diabetes mellitus Daughter Breast cancer Father , age 57 Cardiac disorder Grandmother Diabetes Aunt Ovarian cancer paternal aunt Grandmother (Paternal) Family history of diabetes mellitus Other Cancer Heart disease No family history of adverse response to anesthesia No family history of bleeding disorder Denies family history of Colon cancer Colorectal cancer Social History Smoking Status: Former smoker Tobacco Type: Cigarettes Cigarettes Per Day: QUIT + 30 YEARS AGO; Second Hand Exposure: No; Hx Alcohol Use: Yes Alcohol type: wine Alcohol Intake Frequency Comment: Social about every three months Hx Substance Use: No Preferred Language: Icelandic Communication Ability: Effective Visual Impairment: No Limitations Hearing Ability: Use of Hearing Aid Dish Carrier Required: No Beliefs That Will Affect Care: None marital status: / Current Living Situation: Family Current Living Situation Comment: daughter 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 [employer] Feels Safe at Home: Yes Childhood Exposure to Second-Hand Smoke: Yes (parent smoked) Dental Care, Regularly: Yes Sunscreen Use: Yes (occasionally) Assistive Devices: None Review of Systems A total of 10 systems reviewed and were otherwise negative Physical Exam Vital Signs Vital Signs - 24 hr 03/06/22 09:03 03/06/22 09:43 03/06/22 09:43 Temperature 36.6 C Temperature Source Oral Pulse Rate 70 Pulse Rate [Apical] 68 Pulse Rate from SpO2 Sensor Pulse Rhythm Regular Pulse Strength Normal Respiratory Rate 20 20 Respiratory Effort / Characteristics Non-Labored Spontaneous Non-Labored Spontaneous Respiratory Depth Normal Normal Respiratory Pattern Regular Regular Blood Pressure 127/69 Blood Pressure [Right Arm] 100/56 L Blood Pressure Mean 88 Blood Pressure Mean [Right Arm] 70 Blood Pressure Position Sitting Pulse Oximetry 97 98 98 Oxygen Delivery Method Room Air Room Air Room Air Sepsis Recent Fever Within 48 Hours No Sepsis New/Unexplained Change in Mental Status No Sepsis Action Taken by Nursing No Action Required 03/06/22 09:43 03/06/22 09:10 03/06/22 09:30 Temperature Temperature Source Pulse Rate 67 70 67 Pulse Rate [Apical] Pulse Rate from SpO2 Sensor 69 Pulse Rhythm Pulse Strength Respiratory Rate 20 18 14 Respiratory Effort / Characteristics Respiratory Depth Respiratory Pattern Blood Pressure Blood Pressure [Right Arm] Blood Pressure Mean Blood Pressure Mean [Right Arm] Blood Pressure Position Pulse Oximetry 98 99 Oxygen Delivery Method Room Air Sepsis Recent Fever Within 48 Hours Sepsis New/Unexplained Change in Mental Status Sepsis Action Taken by Nursing 03/06/22 09:42 03/06/22 09:42 03/06/22 10:00 Temperature Temperature Source Pulse Rate 68 Pulse Rate [Apical] Pulse Rate from SpO2 Sensor 67 Pulse Rhythm Pulse Strength Respiratory Rate 21 Respiratory Effort / Characteristics Respiratory Depth Respiratory Pattern Blood Pressure 100/56 L 124/57 L Blood Pressure [Right Arm] Blood Pressure Mean 70 79 Blood Pressure Mean [Right Arm] Blood Pressure Position Pulse Oximetry 97 Oxygen Delivery Method Sepsis Recent Fever Within 48 Hours Sepsis New/Unexplained Change in Mental Status Sepsis Action Taken by Nursing 03/06/22 10:00 03/06/22 10:30 03/06/22 10:30 Temperature Temperature Source Pulse Rate 66 61 Pulse Rate [Apical] Pulse Rate from SpO2 Sensor 65 Pulse Rhythm Pulse Strength Respiratory Rate 18 13 Respiratory Effort / Characteristics Respiratory Depth Respiratory Pattern Blood Pressure 108/65 Blood Pressure [Right Arm] Blood Pressure Mean 79 Blood Pressure Mean [Right Arm] Blood Pressure Position Pulse Oximetry 95 95 Oxygen Delivery Method Sepsis Recent Fever Within 48 Hours Sepsis New/Unexplained Change in Mental Status Sepsis Action Taken by Nursing 03/06/22 11:00 03/06/22 11:00 03/06/22 11:30 Temperature Temperature Source Pulse Rate 64 Pulse Rate [Apical] Pulse Rate from SpO2 Sensor 63 Pulse Rhythm Pulse Strength Respiratory Rate 13 Respiratory Effort / Characteristics Respiratory Depth Respiratory Pattern Blood Pressure 116/72 123/67 Blood Pressure [Right Arm] Blood Pressure Mean 86 85 Blood Pressure Mean [Right Arm] Blood Pressure Position Pulse Oximetry 96 Oxygen Delivery Method Sepsis Recent Fever Within 48 Hours Sepsis New/Unexplained Change in Mental Status Sepsis Action Taken by Nursing 03/06/22 11:30 Temperature Temperature Source Pulse Rate 66 Pulse Rate [Apical] Pulse Rate from SpO2 Sensor 63 Pulse Rhythm Pulse Strength Respiratory Rate 17 Respiratory Effort / Characteristics Respiratory Depth Respiratory Pattern Blood Pressure Blood Pressure [Right Arm] Blood Pressure Mean Blood Pressure Mean [Right Arm] Blood Pressure Position Pulse Oximetry 96 Oxygen Delivery Method Sepsis Recent Fever Within 48 Hours Sepsis New/Unexplained Change in Mental Status Sepsis Action Taken by Nursing CONSTITUTIONAL/VITAL SIGNS: Reviewed / noted above. GENERAL: Non-toxic in appearance. INTEGUMENTARY: Warm, dry, and [place]. HEAD: Normocephalic. EYES: without scleral icterus or trauma. ENT/OROPHARYNX: clear and moist. LYMPHADENOPATHY/NECK: Is supple without lymphadenopathy or meningismus. RESPIRATORY: Clear to auscultation bilaterally. No increased work of breathing. CARDIOVASCULAR: Regular rate and rhythm. GI/ABDOMEN: Soft and nontender. No organomegaly or pulsatile mass. EXTREMITIES: Warm and well perfused. BACK: No CVA tenderness. NEUROLOGICAL: Intact without focal deficits. PSYCHIATRIC: normal affect. MUSCULOSKELETAL: Normally developed with good muscle tone. TRIAGE NURSING DOCUMENTATION REVIEWED. Course Administered Medications Discontinued Medications Sodium Chloride (Nss) 500 mls @ 999 mls/hr IV .Q31M JOSE LUIS Stop: 03/06/22 09:45 Last Infusion: 03/06/22 10:30 Dose: 0 mls/hr Documented By: Admin: 03/06/22 09:42 Dose: 999 mls/hr Documented By: MAYRA Ondansetron HCl (Ondansetron Inj 2 Mg/Ml 2 Ml Vial) 4 mg IV NOW STA Stop: 03/06/22 09:16 Last Admin: 03/06/22 09:41 Dose: 4 mg Documented By: MAYRA Medical Decision Making Differential Diagnosis Differential includes acute coronary syndrome, myocardial infarction, CVA, TIA, anemia, infection, pneumonia, UTI, pyelonephritis, poor nutrition, dehydration, electrolyte disturbance,hypoglycemia. Gastroenteritis, food borne illness, infections, appendicitis, diverticulitis, inflammatory bowel disease, obstruction, GI bleed, biliary pathology, volvulus, as well as other pathologies. Medical Records Attestation: I reviewed the patient's medical records. Home Medications Current Medication List: was personally reviewed by me Laboratory Data Attestation: I reviewed the patient's lab results. Result diagrams: 03/06/22 09:35 03/06/22 09:35 Lab Results 03/06/22 03/06/22 03/06/22 Range/Units 09:35 09:35 09:35 WBC 9.64 (4.8-10.8) K/ul RBC 3.29 L (3.93-5.22) M/uL Hgb 10.1 L (12.0-16.0) g/dl Hct 30.3 L (34.1-44.9) % MCV 92.1 (80.0-100.0) fL MCH 30.7 (25.0-34.0) pg MCHC 33.3 (32.0-36.0) g/dL RDW Std Deviation 47.3 H (36.4-46.3) fL RDW Coeff of Sachin 13.8 (11.5-14.5) % Plt Count 312 (130-400) K/uL MPV 8.9 L (9.4-12.3) fL Immature Gran % (Auto) 4.8 % Neut % (Auto) 71.6 % Lymph % (Auto) 12.1 % [place] % (Auto) 8.5 % Eos % (Auto) 2.3 % Baso % (Auto) 0.7 % Neut # (Auto) 6.90 H (1.4-6.5) K/uL Lymph # (Auto) 1.17 L (1.2-3.4) K/uL [place] # (Auto) 0.82 (0.24-0.82) K/uL Eos # (Auto) 0.22 (0-0.50) K/uL Baso # (Auto) 0.07 (0-0.2) K/uL Immature Gran # (Auto) 0.46 H (0.00-0.02) K/uL Sodium 128 L (136-145) mmol/L Potassium 3.8 (3.5-5.1) mmol/L Chloride 95 L (98-107) mmol/L Carbon Dioxide 23 (21-32) mmol/L Anion Gap 10 (3-11) BUN 26 H (6-23) mg/dl Creatinine 1.20 (0.6-1.2) mg/dl Est Cr Clr Drug Dosing 27.7 ml/min Est GFR ( Amer) 49.8 ml/min Est GFR (Non-Af Amer) 43.0 ml/min BUN/Creatinine Ratio 21.7 H (10-20) Glucose 100 H (70-99(Fasting)) mg/dl Calcium 8.4 L (8.5-10.1) mg/dl Total Bilirubin 0.7 (0.2-1.0) mg/dl AST 57 H (13-39) U/L ALT 31 (7-52) U/L Alkaline Phosphatase 117 H (34-104) U/L Troponin I High Sens 3735.9 H* (0-14) pg/ml Total Protein 6.7 (6.0-8.3) gm/dl Albumin 3.1 L (3.4-5.0) gm/dl Globulin 3.6 (2.5-4.0) gm/dl Albumin/Globulin Ratio 0.9 (0.9-2) Lipase 13 (11-82) U/L TSH 11.758 H (0.300-4.500) uIu/ml Imaging Data Radiologist's Impression: Chest X-Ray 03/06/22 09:16 XR chest 1V portable HISTORY: 81 years-old Female weakness acute weakness COMPARISON: Chest radiographs 11/30/2021 TECHNIQUE: Portable AP view of the chest FINDINGS: The cardiac silhouette is enlarged. Left subclavian pacer. Atherosclerosis of the aorta. No pneumothorax, large pleural effusion or overt pulmonary edema. Mild blunting of the costophrenic angles. Hiatal hernia. Degenerative changes of the shoulders and spine. IMPRESSION: 1. Cardiomegaly without acute process. 2. Subsegmental bibasilar opacities suggest atelectasis. 3. Hiatal hernia. ACT 112: Negative or not required by law. The above report was generated using voice recognition software. It may contain grammatical, syntax or spelling errors. Electronically signed by: Ted Wesley M.D. 03/06/2022 9:56 AM ECG Data Attestation: I personally reviewed and interpreted this ECG as follows: Additional Comments: EKG: Per my interpretation shows a normal sinus rhythm at a rate of 72. Right bundle branch block. No PVCs. No ST elevation. MDM Narrative 81-year-old female presents with some nausea and vomiting as well as some mild chest discomfort status post cardiac cath with placement of a circumflex stent and AICD. Twelve-lead EKG shows a sinus rhythm with a right bundle branch block and no acute ischemic changes. A chest x-ray does not show any acute process. The patient CBC was unremarkable. Chemistry panel shows a sodium of 128 but otherwise unremarkable. Troponin is elevated at 3735. The patient was told the results of the test. She was treated with IV fluids and IV Zofran. She is feeling much better with the regards to the nausea and dry heaves. Patient did have some mild chest pain earlier. The troponin might be trending downward from the higher number given that she was just recently discharged from the hospital in [place]. I did speak with the hospitalist about observing the patient. They will see the patient for further evaluation and care. Impression & Plan Nausea & vomiting, Elevated troponin Discharge Plan Visit Data Chief Complaint: Chest Pain Stated Complaint: PUT IN DEFIB ON TUES/VOMITING/CHEST PAIN ED Provider: Shayne Santillan Discharge Problem: Nausea & vomiting, Elevated troponin Patient Disposition: Being Evaluated by Hospitalist Forms Stand Alone Forms: My [facility] Prescriptions Prescriptions: No Action ascorbic acid (vitamin C) 500 mg tablet 500 mg PO DAILY Qty: 30 6RF ferrous sulfate 325 mg (65 mg iron) tablet,delayed release (DR/EC) 325 mg PO DAILY Qty: 30 6RF amlodipine 2.5 mg tablet 2.5 mg PO DAILY Qty: 90 3RF omeprazole 20 mg capsule,delayed release(DR/EC) 20 mg PO BID Qty: 180 3RF atorvastatin 80 mg tablet 80 mg PO HS Qty: 90 3RF hydroxychloroquine [Plaquenil] 200 mg tablet 200 mg PO DAILY Qty: 90 3RF tramadol 50 mg tablet 50 mg PO Q8H PRN (Reason: pain) Qty: 90 0RF Neupro 1 mg/24 hour patch 24 hour 1 mg transdermal DAILY Qty: 90 1RF diclofenac sodium 1 % gel 2 g topical QID PRN (Reason: Pain) Qty: 100 1RF acetaminophen 500 mg tablet 1,000 mg PO Q8H PRN (Reason: Pain) levothyroxine 100 mcg tablet 100 mcg PO DAILY Qty: 14 0RF cyclobenzaprine 5 mg tablet 5 mg PO BID PRN (Reason: muscle spasm) Qty: 60 1RF multivitamin Tablet 1 tab PO QDD cholecalciferol (vitamin D3) [Vitamin D3] 2,000 unit Capsule 2,000 unit PO QAM calcium carbonate [Calcium 600] 600 mg calcium (1,500 mg) tablet 600 mg PO BID lisinopril 10 mg tablet 20 mg PO HS losartan [Cozaar] 25 mg Tablet 25 mg PO DAILY Brilinta 90 mg tablet 90 mg PO BID amiodarone 200 mg tablet 200 mg PO DAILY aspirin 81 mg tablet 81 mg PO DAILY metoprolol succinate 100 mg tablet 100 mg PO DAILY Referrals Referrals: Hackenberger,Madidson L., MD [Primary Care Provider] -
[2022-03-06 09:46] LABS: Basophils # (auto) 0.07 K/uL (0-0.2); Basophils % (auto) 0.7 %; Eosinophils # (auto) 0.22 K/uL (0-0.50); Eosinophils % (auto) 2.3 %; Hematocrit (blood only) 30.3 % (34.1-44.9); Hemoglobin 10.1 g/dl (12.0-16.0); Immature Granulocytes # (auto) 0.46 K/uL (0.00-0.02); Immature Granulocytes % (auto) 4.8 %; Lymphocytes # (auto) 1.17 K/uL (1.2-3.4); Lymphocytes % (auto) 12.1 %; Mean Corpuscular Hemoglobin 30.7 pg (25.0-34.0); Mean Corpuscular Hgb Conc 33.3 g/dL (32.0-36.0); Mean Corpuscular Volume 92.1 fL (80.0-100.0); Mean Platelet Volume 8.9 fL (9.4-12.3); Monocytes # (auto) 0.82 K/uL (0.24-0.82); Monocytes % (auto) 8.5 %; Neutrophils % (auto) 71.6 %; Platelet Count 312 K/uL (130-400); RDW Coefficient of Variation 13.8 % (11.5-14.5); RDW Standard Deviation 47.3 fL (36.4-46.3); Red Blood Count 3.29 M/uL (3.93-5.22); White Blood Count 9.64 K/ul (4.8-10.8)
--- NOTE | 2022-03-06 09:58 | XRay Report ---
XR chest 1V portable HISTORY: 81 years-old Female weakness acute weakness COMPARISON: Chest radiographs 11/30/2021 TECHNIQUE: Portable AP view of the chest FINDINGS: The cardiac silhouette is enlarged. Left subclavian pacer. Atherosclerosis of the aorta. No pneumotho rax, large pleural effusion or overt pulmonary edema. Mild blunting of the costophrenic angles. Hiata l hernia. Degenerative changes of the shoulders and spine. IMPRESSION: 1. Cardiomegaly without acute process. 2. Subsegmental bibasilar opacities suggest atelectasis. 3. Hiatal hernia. ACT 112: Negative or not required by law. The above report was generated using voice recognition software. It may contain grammatical, syntax o r spelling errors. Electronically signed by: Ted Wesley M.D. 03/06/2022 9:56 AM
[2022-03-06 10:15] LABS: Albumin Globulin Ratio 0.9 (0.9-2); Albumin Level 3.1 gm/dl (3.4-5.0); BUN Creatinine Ratio 21.7 (10-20); Bilirubin,Total 0.7 mg/dl (0.2-1.0); Calcium 8.4 mg/dl (8.5-10.1); Creatinine Clr Calc Pharmacy 27.7 ml/min; Est GFR (African American) 49.8 ml/min; Globulin 3.6 gm/dl (2.5-4.0); Potassium 3.8 mmol/L (3.5-5.1); Total Protein 6.7 gm/dl (6.0-8.3)
[2022-03-06 10:21] LABS: Troponin I High Sensitivity 3735.9 pg/ml (0-14)
[2022-03-06 10:26] LABS: Thyroid Stimulating Hormone 11.758 uIu/ml (0.300-4.500)
--- NOTE | 2022-03-06 12:49 | History & Physical Report ---
Date of Service March 06, 2022 Assessment & Plan (1) Nausea & vomiting: Plan: Presenting issue. Believe to be simple GI upset from general medical issues, travel, and large number of new medications. Seems to have been alleviated by Zofran. Do not think at this time that it is an anginal-equivalent symptom. - Zofran PRN (2) Elevated troponin: Plan: Initial troponin on presentation was 3,736. However, troponin on presentation for her MS in [place] was 65,000. I do not have any records to indicate what her peak was, but certainly higher. I do not think she is having acute cardiac ischemia, but will trend to be sure. EKG on presentation does not show acute ischemic changes. - Trend troponins and EKGs (3) CAD (coronary artery disease): Plan: S/p acute MS in [place] requiring 1 stent (per ED report, it was to the LCx, but patient is not sure). - Continue ASA/Brilinta (patient denies missing any doses) - Continue Toprol 100 mg - Hold lisinopril & losartan (double-checked this with daughter, Jess, and I think she is taking both) -> Will get echo and see if she would be a candidate for Entresto. - Continue atorvastatin - Echo ordered - Cardiology consulted - Discussed case with Dr. Arellano - Monitor volume status as she has some mild LE edema. Will get BNP with next troponin. (4) Chronic hyponatremia: Plan: Na has been as low as 123 in the past. Prior urine osms actually on the low end as well in priors from 03/2020, so not consistent with SIADH. Do not see any meds that would reduce sodium. - Na on admission was 128 with repeat 131. - Urine osms ordered (5) Stage 3b chronic kidney disease: Plan: Baseline Cr ~1.1 - 1.3, CrCl ~30. 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 - Presently at baseline - Monitor Cr; renally dose meds (6) Rheumatoid arthritis: Plan: No flare presently. - Continue home Plaquenil & chronic prednisone - Continue GI ppx (7) Periodic limb movement disorder: Plan: - Continue home rotigotine patch (patient's daughter will bring it in) (8) Hypertension: Plan: BP in the ER is 105/75. - Hold home amlodipine, lisinopril, & losartan (holding amlodipine because I think Entresto will lower it and she won't need amlodipine) (9) Hypothyroidism: Plan: TSH was 11.8 on presentation, but 1.45 in 10/2021. No signs/symptoms of hypo- /hyperthyroidism. Given significant medical illness, would not adjust at this time. - Continue home Synthroid 100 mcg (10) DVT prophylaxis: Plan: Heparin 5,000 units SQ Q12h DNR - Discussed with patient. She is DNR, meaning she does not want CPR or further external defibrillation. If ICD is not successful in defibrillating her, she would not want further attempts. She is willing to be intubated for 2-3 days. She reports her family is aware of her wishes. History of Present Illness Primary Care Provider: Maddison Metzger MD 81yo F w/ hx of rheumatoid arthritis, restless leg, and recent MS who presents with nausea and vomiting. The patient's history is very interesting. She was in [place] for a [employer] conference. She had had about 3 days of nausea and unsettled stomach. On 02/25, she began to have chest pressure (9/10) with radiation up to the left jaw along with worsening of her nausea. There were no exacerbating or ameliorating factors that she recalls. She presented to an ER near her hotel and was diagnosed as having an acute MS. It is not clear whether this was a STEMI or NSTEMI, and the patient does not recall; however, her notes indicate that her HS-trop at the time of presentation were 65,478 pg/mL. She reports she was transferred to another hospital, and she reports one installers mechanical attempt to do the catheterization, but could not, so they had to call a second installers mechanical in to put in her stent. Per report from the ER provider, the stent is in the LCx, but the patient is not sure about this. At some point in the hospitalization, she reports she began to have chest pain again, similar to her presenting chest pain. She reports that they put two plastic pads on her. The doctor told her "Your heart is dying." and then she reports, "The world exploded." After that event (presumably an episode of VT and emergent cardioversion), an ICD was inserted. She was discharged on 03/04 and flew home on 03/05. She reports she was given enough medication from the hospit al that she has had enough and has been taking her medication faithfully, including this morning. Yesterday, while traveling home, she reports that she was tired and had some mild nausea and loss of appetite. She was able to eat, just didn't have a lot that was appetizing. This morning, she felt that her bowels were "tight" and had her daughter cut up some fruit for her. She ate just a little and started to have significant nausea and dry heaving which prompted her to come to the hospital. However, she clearly denies any chest pain similar to her presenting chest pain (or any chest pain at all). She was given Zofran and now her nausea has improved as well. Allergies Allergy/AdvReac Type Severity Reaction Status Date / Time No Known Drug Allergies Allergy Unknown Verified 03/06/22 11:47 Home Medications Medication Instructions Recorded Confirmed Type cholecalciferol (vitamin D3) 50 2,000 unit PO QAM 05/05/18 03/06/22 History mcg (2,000 unit) capsule (Vitamin D3) multivitamin 1 tab PO QDD 05/05/18 03/06/22 History calcium carbonate 600 mg calcium 600 mg PO BID 06/19/19 03/06/22 History (1,500 mg) tablet (Calcium) ascorbic acid (vitamin C) 500 mg 500 mg PO DAILY #30 tabs 08/21/20 03/06/22 Rx tablet ferrous sulfate 325 mg (65 mg 325 mg PO DAILY #30 tabs 08/21/20 03/06/22 Rx iron) tablet,delayed release amlodipine 2.5 mg tablet 2.5 mg PO DAILY #90 tabs 04/24/21 03/06/22 Rx acetaminophen 500 mg tablet 1,000 mg PO Q8H PRN Pain 06/30/21 03/06/22 History omeprazole 20 mg capsule,delayed 20 mg PO BID #180 caps 07/29/21 03/06/22 Rx release lisinopril 10 mg tablet 20 mg PO HS 08/13/21 03/06/22 History cyclobenzaprine 5 mg tablet 5 mg PO BID PRN muscle spasm #60 11/02/21 03/06/22 Rx tabs levothyroxine 100 mcg tablet 100 mcg PO DAILY #14 tabs 11/02/21 03/06/22 Rx atorvastatin 80 mg tablet 80 mg PO HS #90 tabs 12/14/21 03/06/22 Rx hydroxychloroquine 200 mg tablet 200 mg PO DAILY #90 tabs 12/29/21 03/06/22 Rx (Plaquenil) tramadol 50 mg tablet 50 mg PO Q8H PRN pain #90 tabs 02/01/22 03/06/22 Rx rotigotine 1 mg/24 hour 1 mg transdermal DAILY #90 ea 02/02/22 03/06/22 Rx transdermal 24 hour patch (Neupro) diclofenac sodium 1 % topical gel 2 g topical QID PRN Pain #100 grams 02/03/22 03/06/22 Rx Brilinta 90 mg PO BID 03/06/22 03/06/22 History amiodarone 200 mg PO DAILY 03/06/22 03/06/22 History aspirin 81 mg PO DAILY 03/06/22 03/06/22 History losartan 25 mg tablet (Cozaar) 25 mg PO DAILY 03/06/22 03/06/22 History metoprolol succinate 100 mg PO DAILY 03/06/22 03/06/22 History Past Med/Surg History Medical History Acid reflux Acute encephalopathy Acute hyponatremia Acute MS Acute UTI CAD (coronary artery disease) MS in [place] in 02/2022. 1 stent placed (believe LCx, but not sure). 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 Dysuria Hiatal hernia History of Hodgkin's lymphoma S/P RADIATION/CHEMO (2000) History of pelvic fracture Hyperlipidemia Hypertension Hypothyroidism Mixed stress and urge urinary incontinence Restless leg syndrome Rheumatoid arthritis ON PLAQUENIL AND CHRONIC PREDNISONE 7.5MG DAILY Sciatica Scoliosis Stage 3b chronic kidney disease Surgical History H/O foot surgery 2ND RT TOE REMOVED History of bilateral cataract extraction RIGHT CATARACT EXTRACTION WITH IOL= 04/05/18= MAC SEDATION AT [facility] History of colonoscopy History of gynecologic surgery ANTERIOR AND POSTERIOR REPAIR - colporrhaphy (for pelvic relaxation) History of removal of cyst HEAD (BENIGN) History of tonsillectomy History of tooth extraction History of total knee replacement RT History of urologic [place] [facility] [place] Family History Mother , age 80 Cardiac disorder Family history of lung cancer Brother Diabetes Family history of lung cancer Family history of diabetes mellitus Daughter Breast cancer Father , age 57 Cardiac disorder Grandmother Diabetes Aunt Ovarian cancer paternal aunt Grandmother (Paternal) Family history of diabetes mellitus Other Cancer Heart disease No family history of adverse response to anesthesia No family history of bleeding disorder Denies family history of Colon cancer Colorectal cancer Social History Smoking Status: Former smoker Tobacco Type: Cigarettes Cigarettes Per Day: QUIT + 30 YEARS AGO; Second Hand Exposure: No; Hx Alcohol Use: Yes Alcohol type: wine Alcohol Intake Frequency Comment: Social about every three months Hx Substance Use: No Preferred Language: Yoruba Communication Ability: Effective Visual Impairment: No Limitations Hearing Ability: Use of Hearing Aid 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: No Beliefs That Will Affect Care: None marital status: / Current Living Situation: Family Current Living Situation Comment: daughter 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 [employer] Feels Safe at Home: Yes Childhood Exposure to Second-Hand Smoke: Yes (parent smoked) Dental Care, Regularly: Yes Sunscreen Use: Yes (occasionally) Assistive Devices: None Review of Systems Review of Systems: All systems reviewed & are unremarkable except as noted in HPI & below Physical Exam Constitutional: WD/WN, vitals as above Eyes: EOM intact bilaterally; no conjunctival abnormality ENMT: external ear and nose normal, oropharynx normal Neck: trachea midline, no thyromegaly normal visual inspection Respiratory: normal respiratory effort, lungs clear to auscultation no respiratory distress Cardiovascular: Rate/Rhythm: regular rate and regular rhythm Extremities: no edema Gastrointestinal (Abdomen): Inspection/Auscultation: abdomen normal to inspection; abdomen not distended Percussion/Palpation: abdomen soft; abdomen nontender, no guarding and abdomen not rigid Musculoskeletal: no cyanosis or clubbing, extremities motor strength 5/5 Skin: no rashes, warm and dry Neurologic: moves all extremities and awake Psychiatric: Orientation: alert, oriented to person and cooperative Results & Data Results & Data (MN) Vital Signs (Past 12 Hours) Vital Signs Temp Pulse Pulse Resp BP BP Pulse Ox 03/06/22 11:30 66 17 96 03/06/22 11:30 123/67 03/06/22 11:00 64 13 96 03/06/22 11:00 116/72 03/06/22 10:30 108/65 03/06/22 10:30 61 13 95 03/06/22 10:00 66 18 95 03/06/22 10:00 124/57 L 03/06/22 09:42 68 21 97 03/06/22 09:42 100/56 L 03/06/22 09:30 67 14 03/06/22 09:10 70 18 99 03/06/22 09:43 67 20 98 03/06/22 09:43 68 20 100/56 L 98 03/06/22 09:43 98 03/06/22 09:03 36.6 C 70 20 127/69 97 O2 Del Method 03/06/22 11:30 03/06/22 11:30 03/06/22 11:00 03/06/22 11:00 03/06/22 10:30 03/06/22 10:30 03/06/22 10:00 03/06/22 10:00 03/06/22 09:42 03/06/22 09:42 03/06/22 09:30 03/06/22 09:10 03/06/22 09:43 Room Air 03/06/22 09:43 Room Air 03/06/22 09:43 Room Air 03/06/22 09:03 Room Air Code Status & VTE Plan VTE Prophylaxis Plan VTE Prophylaxis will be ordered: Yes PG Care Time/CCT Total # of Minutes Spent Total Time Spent with Patient: Total time spent is greater than 50% in coordination of care (as documented) at patient's floor/unit and/or counseling patient: Coding Level of Care Code INT OBSERVATION CARE 70M LVL 3 Diagnoses Nausea & vomiting R11.2 Elevated troponin R77.8 CAD (coronary artery disease) I25.10 Chronic hyponatremia E87.1 Stage 3b chronic kidney disease N18.32 Rheumatoid arthritis M06.041; M06.042 Laterality: bilateral Rheumatoid arthritis location: hand Rheumatoid factor presence: without rheumatoid factor Periodic limb movement disorder G47.61 Hypertension I10 Hypertension type: primary hypertension Hypothyroidism E03.9 Hypothyroidism type: acquired DVT prophylaxis Z29.9 (1) Rheumatoid arthritis Laterality: bilateral Rheumatoid arthritis location: hand Rheumatoid factor presence: without rheumatoid factor Qualified Code(s): M06.041 - Rheumatoid arthritis without rheumatoid factor, right hand; M06.042 - Rheumatoid arthritis without rheumatoid factor, left hand (2) Hypothyroidism Hypothyroidism type: acquired Qualified Code(s): E03.9 - Hypothyroidism, unspecified (3) Hypertension Hypertension type: primary hypertension Qualified Code(s): I10 - Essential (primary) hypertension
[2022-03-06 13:58] LABS: BUN Creatinine Ratio 21.2 (10-20); Calcium 7.9 mg/dl (8.5-10.1); Creatinine Clr Calc Pharmacy 29.4 ml/min; Est GFR (African American) 53.5 ml/min; Est GFR (Non-African American) 46.2 ml/min; Potassium 3.6 mmol/L (3.5-5.1)
[2022-03-06 14:03] LABS: Troponin I High Sensitivity 3178.5 pg/ml (0-14)
[2022-03-06 15:20] LABS: T4 Free Thyroxine 1.52 ng/dl (0.61-1.60)
--- NOTE | 2022-03-06 15:20 | XCELERA ---
[id number]
[2022-03-06] MEDS: FUROSEMIDE INJ 20 MG/2 ML VIAL IV ONE ×2 (19:40→19:47)
[2022-03-06] MEDS: TICAGRELOR 90 MG TAB PO SCH (21:03)
[2022-03-06] MEDS: HEPARIN SOD 5,000 UNIT/0.5 ML VIAL SQ SCH (21:03)
[2022-03-06] MEDS: ATORVASTATIN 40 MG TAB PO SCH (21:03)
[2022-03-07] MEDS: ACETAMINOPHEN 500 MG TAB PO PRN (00:34)
[2022-03-07] MEDS: traMADol HCL 50 MG TABLET PO PRN ×3 (01:35→23:33)
[2022-03-07] MEDS: ONDANSETRON INJ 2 MG/ML 2 ML VIAL IV PRN (02:48)
[2022-03-07] MEDS: LEVOTHYROXINE SODIUM 100 MCG TABLET PO SCH (06:23)
[2022-03-07 07:39] LABS: Hematocrit (blood only) 28.9 % (34.1-44.9); Hemoglobin 9.4 g/dl (12.0-16.0); Mean Corpuscular Hemoglobin 30.1 pg (25.0-34.0); Mean Corpuscular Hgb Conc 32.5 g/dL (32.0-36.0); Mean Corpuscular Volume 92.6 fL (80.0-100.0); Platelet Count 347 K/uL (130-400); RDW Coefficient of Variation 13.8 % (11.5-14.5); RDW Standard Deviation 47.1 fL (36.4-46.3); Red Blood Count 3.12 M/uL (3.93-5.22); White Blood Count 7.36 K/ul (4.8-10.8)
[2022-03-07 08:08] LABS: Troponin I High Sensitivity 3171.1 pg/ml (0-14)
[2022-03-07 08:10] LABS: Albumin Globulin Ratio 0.9 (0.9-2); Albumin Level 2.8 gm/dl (3.4-5.0); BUN Creatinine Ratio 21.8 (10-20); Bilirubin,Total 0.6 mg/dl (0.2-1.0); Calcium 8.1 mg/dl (8.5-10.1); Creatinine Clr Calc Pharmacy 29.4 ml/min; Est GFR (African American) 55.3 ml/min; Est GFR (Non-African American) 47.7 ml/min; Globulin 3.2 gm/dl (2.5-4.0); Magnesium 2.1 mg/dl (1.7-2.4); Potassium 3.9 mmol/L (3.5-5.1)
[2022-03-07] MEDS: PANTOprazole 40 MG TAB PO SCH (09:16)
[2022-03-07] MEDS: ASPIRIN 81 MG ECTAB PO SCH (09:16)
[2022-03-07] MEDS: TICAGRELOR 90 MG TAB PO SCH ×2 (09:16→21:29)
[2022-03-07] MEDS: HYDROXYCHLOROQUINE SULFATE 200 MG TAB PO SCH (09:16)
[2022-03-07] MEDS: METOPROLOL SUCC 50MG EXT REL TAB PO SCH (09:16)
[2022-03-07] MEDS: AMIODARONE 200 MG TAB PO SCH (09:16)
[2022-03-07] MEDS: HEPARIN SOD 5,000 UNIT/0.5 ML VIAL SQ SCH ×2 (09:17→21:29)
--- NOTE | 2022-03-07 10:24 | Cardiology Consultation ---
Date of Consultation March 07, 2022 Assessment & Plan (1) CAD (coronary artery disease): (2) S/P coronary artery stent placement: (3) Ischemic cardiomyopathy: (4) Chronic systolic CHF (congestive heart failure): (5) S/P ICD (internal cardiac defibrillator) procedure: (6) Hypertension: (7) Hyperlipidemia: (8) Ventricular tachycardia: Plan ASSESSMENT/PLAN: 1. CAD s/p DE and PCI: Records from her February 2022 DE hospitalization not available at the time of this no. No angina. Continue aspirin 81 mg daily indefinitely. Continue Brilinta for at least 1 year. Anti-platelet therapy recommendations discussed with her. Continue high-intensity statin therapy and beta-estela. Given that she had a significant DE, also recommend spironolactone. Cardiac rehab. 2. Chronic heart failure with reduced EF: Based on her symptoms, she is likely mildly hypervolemic. This was not the reason for her presentation, but would recommend Lasix 20 mg IV x1 now. Start spironolactone 25 mg p.o. daily. Start low-dose Entresto. Continue metoprolol succinate. Recommend SG LT 2 inhibitor at the time of discharge. Recommend heart failure program. Low-sodium diet, less than 2000 mg daily. Recommended daily weights and to bring her weights to each appointment in the outpatient setting. 3. Ischemic cardiomyopathy: Will repeat echo as an outpatient after titration of her medical therapy. ICD in place for secondary prevention. 4. Ventricular tachycardia: Presumed ventricular tachycardia as she was awake for the event but required emergent cardioversion. On amiodarone. Will arrange for electrophysiology consultation as an outpatient for management of her ventricular arrhythmia and also ICD. Monitor transaminase levels and TSH closely while on amiodarone. 5. ICD: Electrophysiology referral for device management. 6. Hypertension: Blood pressure has been well controlled. Recommendations as above. 7. Dyslipidemia: Continue high-intensity statin therapy. Goal LDL < 70. 8. Nausea: As per primary service. 9. Disposition: Close follow-up in the cardiology outpatient office will be arranged. I will be in the office tomorrow however someone from the cardiology team will stop by, likely Shara Nguyen of the Heart failure program, or Dr. Sevilla of electrophysiology who will be on-call for Cardiology throughout the week. Patient care communicated with primary hospitalist, Dr. Montejo. Today's visit was 48 minutes in duration, with greater than 50% of that time spent [id number], counseling patient, coordinating care, chart review, and documentation. Thank you for allowing me to participate in the care of your patient. Please call for any other questions or concerns. Sincerely, Sarkis Arellano M.D. History of Present Illness Reason for Consultation: Recent DE s/p PCI and VT arrest s/p ICD Requesting Physician: Dr. Santamaria Attending Physician: Jarret Montejo, History of Present Illness Mrs. Brannon is a very pleasant 81-year-old female with history significant for CAD s/p acute DE and PCI (in [place] on 02/25/2022), ventricular arrhythmia with emergent cardioversion, ICD placement, hypertension, CKD with nonfunctioning left kidney, chronic hyponatremia, dyslipidemia, and rheumatoid arthritis. While in [place] for a conference, she developed substernal chest pressure with radiation to the left jaw on 02/25/2022 and took a taxi to a local hospital. She was found to have an DE and was transferred emergently by ambulance to a larger facility. Leading up to her chest discomfort, she had been experiencing nausea. According to the H&P, her high sensitivity to troponin at the time of presentation was 65,478. When at the larger facility, she was quickly taken to the catheter builder and underwent PCI x1. Later during her hospital stay, she developed recurrent chest discomfort and underwent emergent cardioversion for presumed ventricular arrhythmia. She underwent ICD placement and was discharged on 03/04/2022 on amiodarone and returned home on 03/05/2022. She has records from her hospital stay in [place] however they are at home with her daughter and therefore details of her [place] care are not well known at the time of this consult. Her daughter was asked to bring the records to her outpatient cardiology appointment so that they can be scanned into medical record. During her hospital stay, lisinopril was replaced with losartan. Current medication list at home states that she is on losartan and lisinopril but her and her daughter state that she is no longer taking lisinopril, but rather losartan. She had been taking prednisone 7.5 mg daily chronically but that was discontinued. She was admitted to this facility on 03/06/2022 after presenting with nausea and vomiting. She has not had any recurrent chest discomfort other than some left lateral chest pain overnight near the incision of her ICD. She denies any angina. She received Zofran with resolution of her nausea but did have another episode overnight, once again resolving with Zofran. The nausea and dry heaving occurred after eating fruit and given her recent hospital stay in [place], she came here for evaluation. Her initial high sensitivity troponin was 3735 and it trended downward. Her ECG on presentation demonstrated sinus rhythm with right bundle branch block with possible inferior and lateral infarct. She admits to some mild orthopnea overnight but without hypoxia. She has dyspnea with exertion. She has had lower extremity edema but believes it has improved here. Lasix 20 mg IV x1 was ordered, but according to EHR, it was not given. She denies melena, hematochezia, hematuria, abdominal pain, diarrhea, palpitations, syncope, or near-syncope. Chronically she has maintained a low-sodium diet, less than 2000 mg daily. Review of systems: As above. Review of systems otherwise negative/unremarkable. Family history: Her mother and father had cardiac issues. Social history: She quit smoking in 1984. Occasional alcohol. She is a . Four children. Grandchildren. Her daughter, Jess, participated in today's visit via speaker phone. She was alone at the bedside. Allergies Allergy/AdvReac Type Severity Reaction Status Date / Time No Known Drug Allergies Allergy Unknown Verified 03/06/22 11:47 Home Medications Medication Instructions Recorded Confirmed Type cholecalciferol (vitamin D3) 50 2,000 unit PO QAM 05/05/18 03/06/22 History mcg (2,000 unit) capsule (Vitamin D3) multivitamin 1 tab PO QDD 05/05/18 03/06/22 History calcium carbonate 600 mg calcium 600 mg PO BID 06/19/19 03/06/22 History (1,500 mg) tablet (Calcium) ascorbic acid (vitamin C) 500 mg 500 mg PO DAILY #30 tabs 08/21/20 03/06/22 Rx tablet ferrous sulfate 325 mg (65 mg 325 mg PO DAILY #30 tabs 08/21/20 03/06/22 Rx iron) tablet,delayed release amlodipine 2.5 mg tablet 2.5 mg PO DAILY #90 tabs 04/24/21 03/06/22 Rx acetaminophen 500 mg tablet 1,000 mg PO Q8H PRN Pain 06/30/21 03/06/22 History omeprazole 20 mg capsule,delayed 20 mg PO BID #180 caps 07/29/21 03/06/22 Rx release lisinopril 10 mg tablet 20 mg PO HS 08/13/21 03/06/22 History cyclobenzaprine 5 mg tablet 5 mg PO BID PRN muscle spasm #60 11/02/21 03/06/22 Rx tabs levothyroxine 100 mcg tablet 100 mcg PO DAILY #14 tabs 11/02/21 03/06/22 Rx atorvastatin 80 mg tablet 80 mg PO HS #90 tabs 12/14/21 03/06/22 Rx hydroxychloroquine 200 mg tablet 200 mg PO DAILY #90 tabs 12/29/21 03/06/22 Rx (Plaquenil) tramadol 50 mg tablet 50 mg PO Q8H PRN pain #90 tabs 02/01/22 03/06/22 Rx rotigotine 1 mg/24 hour 1 mg transdermal DAILY #90 ea 02/02/22 03/06/22 Rx transdermal 24 hour patch (Neupro) diclofenac sodium 1 % topical gel 2 g topical QID PRN Pain #100 grams 02/03/22 03/06/22 Rx Brilinta 90 mg PO BID 03/06/22 03/06/22 History amiodarone 200 mg PO DAILY 03/06/22 03/06/22 History aspirin 81 mg PO DAILY 03/06/22 03/06/22 History losartan 25 mg tablet (Cozaar) 25 mg PO DAILY 03/06/22 03/06/22 History metoprolol succinate 100 mg PO DAILY 03/06/22 03/06/22 History Patient History Medical History (Updated 03/07/22 @ 10:39 by Simone Arellano MD) Acid reflux Acute encephalopathy Acute hyponatremia Acute DE Acute UTI CAD (coronary artery disease) DE in [place] in 02/2022. 1 stent placed (believe LCx, but not sure). 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 Dysuria Hiatal hernia History of Hodgkin's lymphoma S/P RADIATION/CHEMO (2000) History of pelvic fracture Hyperlipidemia Hypertension Hypothyroidism Ischemic cardiomyopathy Mixed stress and urge urinary incontinence Restless leg syndrome Rheumatoid arthritis ON PLAQUENIL AND CHRONIC PREDNISONE 7.5MG DAILY Sciatica Scoliosis Stage 3b chronic kidney disease Ventricular tachycardia Surgical History (Updated 03/07/22 @ 10:39 by Simone Arellano MD) H/O foot surgery 2ND RT TOE REMOVED History of bilateral cataract extraction RIGHT CATARACT EXTRACTION WITH IOL= 04/05/18= MAC SEDATION AT [facility] History of colonoscopy History of gynecologic surgery ANTERIOR AND POSTERIOR REPAIR - colporrhaphy (for pelvic relaxation) History of removal of cyst HEAD (BENIGN) History of tonsillectomy History of tooth extraction History of total knee replacement RT History of urologic surgery URETEROLYSIS- 04/1995 [facility] [place] S/P coronary artery stent placement S/P ICD (internal cardiac defibrillator) procedure S/P vaginal hysterectomy Family History Mother , age 80 Cardiac disorder Family history of lung cancer Brother Diabetes Family history of lung cancer Family history of diabetes mellitus Daughter Breast cancer Father , age 57 Cardiac disorder Grandmother Diabetes Aunt Ovarian cancer paternal aunt Grandmother (Paternal) Family history of diabetes mellitus Other Cancer Heart disease No family history of adverse response to anesthesia No family history of bleeding disorder Denies family history of Colon cancer Colorectal cancer Social History Smoking Status: Former smoker Tobacco Type: Cigarettes Cigarettes Per Day: QUIT + 30 YEARS AGO; Second Hand Exposure: No; Hx Alcohol Use: No Hx Substance Use: No Preferred Language: Sinhala Communication Ability: Effective Visual Impairment: No Limitations Hearing Ability: Use of Hearing Aid Assistant [employer] Required: No Beliefs That Will Affect Care: None marital status: / Current Living Situation: Alone Current Living Situation Comment: home alone w/ daughter close & friends close. 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 Alert and oriented. HEENT: Anicteric sclera. Neck: No appreciable JVD. No hepatic jugular reflux. No bruits. Normal carotid upstrokes bilaterally. Cardiac: PMI was nondisplaced. No ventricular heave. Regular rate and rhythm. Normal S1-S2. S3 noted. 1/6 systolic murmur. No rubs or gallops. Pulmonary: Clear to auscultation bilaterally without wheezes, rales, or rhonchi. Abdomen: Soft, nontender, nondistended, with normoactive bowel sounds. No bruits noted. Extremities: 2+ radial pulses bilaterally. 2+ posterior tibialis pulses bilaterally. No edema or cyanosis. Psychiatric: Affect appears appropriate. Left chest: ICD site without erythema or discharge. Results & Data ([facility]) Vital Signs (Past 12 Hours) Vital Signs Temp Pulse Pulse Pulse Resp BP Pulse Ox 03/07/22 09:55 69 03/07/22 08:13 36.5 C 63 16 111/57 L 99 03/07/22 03:32 36.5 C 60 16 101/62 96 03/06/22 22:48 37.1 C 85 17 113/67 96 O2 Del Method 03/07/22 09:55 03/07/22 08:13 Room Air 03/07/22 03:32 Room Air 03/06/22 22:48 Room Air Intake & Output 03/05/22 03/06/22 03/07/22 03/08/22 06:59 06:59 06:59 06:59 Intake Total 500 / 500 Output Total 375 / 375 Balance 125 / 125 Weight 112 lb 7.995 oz Laboratory Results Laboratory Results - last 24 hr 03/06/22 03/06/22 03/06/22 09:35 13:07 13:07 WBC RBC Hgb Hct MCV MCH MCHC RDW Std Deviation RDW Coeff of Sachin Plt Count MPV Sodium 131 L Potassium 3.6 Chloride 100 Carbon Dioxide 23 Anion Gap 8 BUN 24 H Creatinine 1.13 Est Cr Clr Drug Dosing 29.4 Est GFR ( Amer) 53.5 Est GFR (Non-Af Amer) 46.2 BUN/Creatinine Ratio 21.2 H Glucose 89 Calcium 7.9 L Magnesium Total Bilirubin AST ALT Alkaline Phosphatase Troponin I High Sens 3178.5 H* B-Natriuretic Peptide 1716 H Total Protein Albumin Globulin Albumin/Globulin Ratio Free T4 1.52 Urine Osmolality SARS-CoV-2, RNA, NAAT 03/06/22 03/06/22 03/07/22 13:10 20:50 06:39 WBC 7.36 RBC 3.12 L Hgb 9.4 L Hct 28.9 L MCV 92.6 MCH 30.1 MCHC 32.5 RDW Std Deviation 47.1 H RDW Coeff of Sachin 13.8 Plt Count 347 MPV 9.0 L Sodium Potassium Chloride Carbon Dioxide Anion Gap BUN Creatinine Est Cr Clr Drug Dosing Est GFR ( Amer) Est GFR (Non-Af Amer) BUN/Creatinine Ratio Glucose Calcium Magnesium Total Bilirubin AST ALT Alkaline Phosphatase Troponin I High Sens B-Natriuretic Peptide Total Protein Albumin Globulin Albumin/Globulin Ratio Free T4 Urine Osmolality 281 L SARS-CoV-2, RNA, NAAT NEGATIVE 03/07/22 06:39 WBC RBC Hgb Hct MCV MCH MCHC RDW Std Deviation RDW Coeff of Sachin Plt Count MPV Sodium 132 L Potassium 3.9 Chloride 102 Carbon Dioxide 20 L Anion Gap 10 BUN 24 H Creatinine 1.10 Est Cr Clr Drug Dosing 29.4 Est GFR ( Amer) 55.3 Est GFR (Non-Af Amer) 47.7 BUN/Creatinine Ratio 21.8 H Glucose 70 Calcium 8.1 L Magnesium 2.1 Total Bilirubin 0.6 AST 43 H ALT 24 Alkaline Phosphatase 99 Troponin I High Sens 3171.1 H* B-Natriuretic Peptide Total Protein 6.0 Albumin 2.8 L Globulin 3.2 Albumin/Globulin Ratio 0.9 Free T4 Urine Osmolality SARS-CoV-2, RNA, NAAT Diagnostic Findings Telemetry personally reviewed: Sinus rhythm. No arrhythmia. Echo 03/06/2022: Normal LV size. EF 35%. Akinesis of the inferolateral wall and base to mid anterolateral wall. Anterior and inferior soto appear hypokinetic but are not as well visualized. Moderate left atrial dilation. No significant valvular abnormalities. Normal RVSP. ECG personally reviewed 03/06/2022 at 9:09 a.m.: Sinus rhythm 72 beats per minute. RBBB. Lateral infarct. Possible inferior infarct. Chest x-ray 03/06/2022: No acute process per Radiology. Medications Administered Current Inpatient Medications Acetaminophen (Acetaminophen 500 Mg Tab) 1,000 mg PO Q8H PRN PRN Reason: Mild Pain Stop: 04/05/22 16:39 Last Admin: 03/07/22 00:34 Dose: 1,000 mg Amiodarone HCl (Amiodarone 200 Mg Tab) 200 mg PO DAILY JOSE LUIS Stop: 04/06/22 08:59 Last Admin: 03/07/22 09:16 Dose: 200 mg Aspirin (Aspirin 81 Mg Ectab) 81 mg PO DAILY JOSE LUIS Stop: 04/06/22 08:59 Last Admin: 03/07/22 09:16 Dose: 81 mg Atorvastatin Calcium (Atorvastatin 40 Mg Tab) 80 mg PO HS JOSE LUIS Stop: 04/05/22 20:59 Last Admin: 03/06/22 21:03 Dose: 80 mg Cyclobenzaprine HCl (Cyclobenzaprine Hcl 5 Mg Tab) 5 mg PO BID PRN PRN Reason: muscle spasm Stop: 04/05/22 16:39 Heparin Sodium (Porcine) (Heparin Sod 5,000 Unit/0.5 Ml Vial) 5,000 units SQ Q12 JOSE LUIS Stop: 04/05/22 20:59 Last Admin: 03/07/22 09:17 Dose: 5,000 units Hydroxychloroquine Sulfate (Hydroxychloroquine Sulfate 200 Mg Tab) 200 mg PO DAILY JOSE LUIS Stop: 04/06/22 08:59 Last Admin: 03/07/22 09:16 Dose: 200 mg Levothyroxine Sodium (Levothyroxine Sodium 100 Mcg Tablet) 100 mcg PO DAILYBB [facility] Stop: 04/06/22 06:29 Last Admin: 03/07/22 06:23 Dose: 100 mcg Metoprolol Succinate (Metoprolol Succ 50mg Ext Rel Tab) 100 mg PO DAILY JOSE LUIS Stop: 04/06/22 08:59 Last Admin: 03/07/22 09:16 Dose: 100 mg Miscellaneous (* Rotigotine [Neupro] 1 Mg/24 Hour*Order Awaiting Action) 1 each N/A QS JOSE LUIS Stop: 04/06/22 00:00 Last Admin: 03/07/22 07:33 Dose: Not Given Ondansetron HCl (Ondansetron Inj 2 Mg/Ml 2 Ml Vial) 4 mg IV Q4H PRN PRN Reason: Nausea Stop: 04/05/22 16:39 Last Admin: 03/07/22 02:48 Dose: 4 mg Pantoprazole Sodium (Pantoprazole 40 Mg Tab) 40 mg PO QAM [facility] Stop: 04/06/22 08:59 Last Admin: 03/07/22 09:16 Dose: 40 mg Ticagrelor (Ticagrelor 90 Mg Tab) 90 mg PO BID JOSE LUIS Stop: 04/05/22 20:59 Last Admin: 03/07/22 09:16 Dose: 90 mg Tramadol HCl (Tramadol Hcl 50 Mg Tablet) 50 mg PO Q8H PRN PRN Reason: Moderate or severe pain Stop: 04/05/22 16:39 Last Admin: 03/07/22 01:35 Dose: 50 mg PG Care Time/CCT Total # of Minutes Spent Total Time Spent with Patient: Total time spent is greater than 50% in coordination of care (as documented) at patient's floor/unit and/or counseling patient: Coding Level of Care Code 18874 Office/Outpt Visit, New Diagnoses CAD (coronary artery disease) I25.10 S/P coronary artery stent placement Z95.5 Ischemic cardiomyopathy I25.5 Chronic systolic CHF (congestive heart failure) I50.22 S/P ICD (internal cardiac defibrillator) procedure Z95.810 Hypertension I10 Hypertension type: primary hypertension Hyperlipidemia E78.5 Ventricular tachycardia I47.2 (1) Hypertension Hypertension type: primary hypertension Qualified Code(s): I10 - Essential (primary) hypertension
[2022-03-07] MEDS ORDERED: FUROSEMIDE INJ 20 MG/2 ML VIAL IV ONE (10:47)
[2022-03-07] MEDS: SPIRONOLACTONE 25 MG TAB PO SCH (11:35)
[2022-03-07] MEDS: CYCLOBENZAPRINE HCL 5 MG TAB PO PRN (11:40)
--- NOTE | 2022-03-07 15:03 | Hospitalist Progress Note ---
Date of Service March 07, 2022 Assessment & Plan (1) Hyperlipidemia: (2) Chronic systolic CHF (congestive heart failure): (3) S/P coronary artery stent placement: (4) DVT prophylaxis: (5) CAD (coronary artery disease): (6) Nausea & vomiting: (7) Elevated troponin: (8) Stage 3b chronic kidney disease: (9) Chronic hyponatremia: (10) Rheumatoid arthritis: (11) Restless leg syndrome: Plan #Nausea & vomiting -Vomiting is resolving and nausea is improving with prn Zofran. -Most likely d/t recent traveling, new medications, and not an infectious source. #Elevated troponin (s/p acute ID in [place] requiring 1 stent) -On admission, troponin was 3,736. Flat troponins x 3. -Per H&P's note, Troponin when she was admitted with ID in [place] around 65,000 -EKG here without acute ischemic changes -Will monitor EKG and clinical signs of acute cardiac ischemia. #HFrEF--ischemic etiology--slight fluid overload, in exacerbation. -TTE here with showed EF 35%; with akinesis of the inferolateral wall and base to mid anterolateral wall; anterior and inferior soto are hypokinetic but not well visualized -BNP was 1716 -Given Lasix 20mg IV today -Start spironolactone 25mg PO daily and Entresto -Continue metoprolol succinate 100mg daily -Stop losartan -SGLT-2 inhibitor at the time of discharge -Consulted for the heart failure program as an outpatient -Monitor I's and O's, daily weights #CAD (coronary artery disease), HLD - Continue ASA/Brilinta (patient denies missing any doses) - Continue metoprolol succinate 100 mg daily - Continue atorvastatin 80mg daily; goal LDL < 70 - Appreciate cardiology recommendations #History of ventricular arrhythmia - continue home amiodarone 200mg daily - Has ICD in place - can follow with EP as an outpatient #Hypertension: - BP in acceptable range since admission - Holding home amlodipine since we have started Entresto - stopped losartan #Chronic hyponatremia: -Has been as low as 123 in the past. Na is 132 today. 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 -Cr today was 1.1 -Will continue to monitor in AM labs #Rheumatoid arthritis - Continue home Plaquenil & chronic prednisone - Continue GI ppx with Protonix #Periodic limb movement disorder: - Continue home rotigotine patch (brought from home) - received 1 time dose of 0.25mg Ativan between patches due to severe symptoms #Hypothyroidism -TSH was elevated at 11.8 on presentation. No signs/symptoms of hypothyroidism -Most likely due to sick thyroid -Continue home Synthroid 100 mcg. -Patient recently prescribed amiodarone which can cause a elevated TSH but unlikely the cause due to recently been added. - Will need repeat TSH post-hospital discharge Code status: Conditional Code. "DNR - Discussed with patient. She is DNR, meaning she does not want CPR or further external defibrillation. If ICD is not successful in defibrillating her, she would not want further attempts. She is willing to be intubated for 2-3 days. She reports her family is aware of her wishes. DVT ppx: Heparin SQ Q12h Consults: Cardiology Dispo: med/surg Thank you for allowing me to participate in the care of your patient. -Dr. Yanick Zuleta PGY1 Admission and Anticipated Discharge Date Admission Date: March 06, 2022 Supervising Physician Co-Signing Physician Notes Patient seen and examined independently of PGY-1 Dr. Zuleta. Agree with history, exam findings, assessment and plan of care as outlined. In brief, Shruthi is a 81 year old female with history of CAD (recent ID and ventricular arrhythmia with subsequent ICD placement), RA, HTN, restless leg admitted with nausea. Left-sided chest pain. Received anti-emetic earlier in the day with resolution of her nausea. Seen earlier while she was having significant involuntary leg movement/spasms due to her patch expiring. Her daughter is bringing a new patch for her form home. Reviewed H&P, Emergency Department note, and scanned outside records. VS and nursing notes reviewed. Well appearing. No JVD Heart with regular rate and rhythm. Trace edema in the lower extremities. Lungs are clear to auscultation throughout. Labs and imaging reviewed. 1. Nausea. At this time, this is unlikely to be an anginal equivalent. Troponins x3 were flat. ?secondary to recent travel and new medications. 2. Elevated troponin in the setting of known CAD and recent cath. Serial troponins have been flat 3. Chest pain. Secondary to recent ICD placement. No signs of infection. 4. CAD, recent ID. Recently had a stent placed in [place]. Continue ASA and Brillinta x 1 year. Continue atorvastatin 80mg, goal LDL < 70. 5. HFrEF. Ischemic etiology. EF 35%. Normal LV side with reduced EF. Akinesis of the inferolateral wall and base to mid anterolateral wall. Anterior and inferior soto are hypokinetic but not well visualized. Started Entresto. Stopped home losartan. Start spironolactone 25mg daily. Continue home metoprolol XL 100mg. Slightly elevated BNP. Received 20mg IV Lasix. Appreciate cardiology recommendations. 6. History of ventricular arrhythmia. Has ICD placed. Continue amiodarone 200mg daily. Can follow up with EP for device monitoring. 7. HTN. Discontinue home amlodipine, given that we have started several new medications that affect her blood pressure. 8. Normocytic Anemia. New. Hgb 9.4 (previous baseline 12-13). Check iron, B12, folate, although this appears a bit more acute since her hgb in January was 12. 2. Check FOBT. 9. Hyponatremia. Improving. On admission, Na 128Do not think this is necessarily chronic in nature since Na level sfrom October 2020 through January 2022 have been in a normal range. This may be an acute drop, ?secondary to slight volume overload. 10. Elevated AST and AlkP. ?Improving, but will need to keep an eye on this as she was recently started on amiodarone. 11. Hypothyroid. TSH 11, free T4 1.52. In October, TSH was at goal of < 2.5. Home dose of levothyroxine is 100mcg. ?Less likely to be due to very recently started amiodarone 12. CKD, Stage 3b. At baseline. 13. RA. Continue home hydroxychloroquine. 14. Periodic limb movement disorder. Patch for Neupro . New patch placed (not on formulary so daughter had to bring this in from home). Given a one time dose of 0.25mg Ativan due to the continued discomfort, spasm as the new patch takes effect. Dispo: pending clinical improvement. Subjective Patient was seen bedside this AM. Her only complaint today is that she has some L sided CP that gets worse with movement, taking a deep breath, and when touching the area. She states that it does not feel like her ID that she had last week. She denies any more vomiting and the nausea is getting better. She denies any SOB. Review of Systems Review of Systems: All systems reviewed & are unremarkable except as noted in HPI & below Physical Exam Constitutional: WD/WN, vitals as above Eyes: EOM intact bilaterally ENMT: external ear and nose normal, oropharynx normal Neck: trachea midline, no thyromegaly normal visual inspection Respiratory: normal respiratory effort, lungs clear to auscultation normal respiratory effort; no respiratory distress Cardiovascular: Rate/Rhythm: regular rate and regular rhythm Extremities: no edema Gastrointestinal (Abdomen): Inspection/Auscultation: abdomen normal to inspection; abdomen not distended Percussion/Palpation: abdomen soft; abdomen nontender, no guarding and abdomen not rigid Musculoskeletal: no cyanosis or clubbing, extremities motor strength 5/5 Skin: no rashes, warm and dry Neurologic: moves all extremities and awake Psychiatric: Orientation: alert, oriented to person and cooperative Results & Data Results & Data ([facility]) Vital Signs (Past 12 Hours) Vital Signs Temp Pulse Pulse Pulse Resp BP Pulse Ox 03/07/22 09:55 69 03/07/22 08:13 36.5 C 63 16 111/57 L 99 03/07/22 03:32 36.5 C 60 16 101/62 96 O2 Del Method 03/07/22 09:55 03/07/22 08:13 Room Air 03/07/22 03:32 Room Air Resident Activity Tracking Resident Involvement: Resident Care Provided Care Provided: Adult [facility] Medicine (1) Rheumatoid arthritis Laterality: bilateral Rheumatoid arthritis location: hand Rheumatoid factor presence: without rheumatoid factor Qualified Code(s): M06.041 - Rheumatoid arthritis without rheumatoid factor, right hand; M06.042 - Rheumatoid arthritis without rheumatoid factor, left hand
[2022-03-07] MEDS ORDERED: LORazepam 0.25 MG in SYRINGE 0.125 ML IV ONE (15:29)
--- NOTE | 2022-03-07 19:25 | Electrocardiogram Report ---
Test Reason : Blood Pressure : / mmHG Vent. Rate : 072 BPM Atrial Rate : 072 BPM P-R Int : 164 ms QRS Dur : 144 ms QT Int : 492 ms P-R-T Axes : 025 -34 012 degrees QTc Int : 538 ms Normal sinus rhythm Possible Left atrial enlargement Left axis deviation Right bundle branch block Lateral infarct , age undetermined Cannot rule out Inferior infarct , age undetermined Abnormal ECG When compared with ECG of 09-AUG-2021 11:36, Right bundle branch block is now Present Lateral infarct is now Present Confirmed by Simone Arellano ([id number]) on 03/07/2022 7:25:02 PM Referred By: REFERRED SELF Confirmed By:Simone Arellano
[2022-03-07] MEDS: VALSARTAN/SACUBITRIL 26/24MG TAB PO SCH (21:28)
[2022-03-07] MEDS: ATORVASTATIN 40 MG TAB PO SCH (21:29)
[2022-03-07] MEDS ORDERED: Nursing to Pharmacy Communication SCH (21:30)
[2022-03-07] MEDS: ROTIGOTINE PATCH TD SCH (21:50)
[2022-03-07] MEDS: [UNRECOGNIZED DRUG - REMARK] SCH (21:51)
[2022-03-08] MEDS: ACETAMINOPHEN 500 MG TAB PO PRN ×2 (01:18→13:06)
[2022-03-08] MEDS: LEVOTHYROXINE SODIUM 100 MCG TABLET PO SCH (05:35)
[2022-03-08 06:46] LABS: Hematocrit (blood only) 28.7 % (34.1-44.9); Hemoglobin 9.4 g/dl (12.0-16.0); Mean Corpuscular Hemoglobin 30.6 pg (25.0-34.0); Mean Corpuscular Hgb Conc 32.8 g/dL (32.0-36.0); Mean Corpuscular Volume 93.5 fL (80.0-100.0); Mean Platelet Volume 8.9 fL (9.4-12.3); Platelet Count 379 K/uL (130-400); RDW Coefficient of Variation 13.7 % (11.5-14.5); RDW Standard Deviation 46.9 fL (36.4-46.3); Red Blood Count 3.07 M/uL (3.93-5.22); White Blood Count 6.59 K/ul (4.8-10.8)
[2022-03-08 07:07] LABS: Albumin Globulin Ratio 0.9 (0.9-2); Albumin Level 2.9 gm/dl (3.4-5.0); BUN Creatinine Ratio 19.5 (10-20); Bilirubin,Total 0.7 mg/dl (0.2-1.0); Calcium 8.4 mg/dl (8.5-10.1); Creatinine Clr Calc Pharmacy 24.3 ml/min; Est GFR (Non-African American) 37.9 ml/min; Globulin 3.2 gm/dl (2.5-4.0); Potassium 3.8 mmol/L (3.5-5.1); Total Protein 6.1 gm/dl (6.0-8.3)
[2022-03-08 07:20] LABS: Folate (Folic Acid) > 22.30 ng/ml (>5.38)
[2022-03-08 07:21] LABS: Vitamin B12 1397 pg/ml (180-914)
[2022-03-08 07:47] LABS: Basophils # (auto) 0.07 K/uL (0-0.2); Basophils % (auto) 1.1 %; Eosinophils # (auto) 0.22 K/uL (0-0.50); Eosinophils % (auto) 3.3 %; Immature Granulocytes # (auto) 0.57 K/uL (0.00-0.02); Immature Granulocytes % (auto) 8.6 %; Lymphocytes # (auto) 1.54 K/uL (1.2-3.4); Lymphocytes % (auto) 23.4 %; Monocytes % (auto) 12.1 %; Neutrophils # (auto) 3.39 K/uL (1.4-6.5); Neutrophils % (auto) 51.5 %; RBC Morphology Unremarkable
[2022-03-08] MEDS: traMADol HCL 50 MG TABLET PO PRN ×2 (08:02→22:07)
[2022-03-08] MEDS: ONDANSETRON INJ 2 MG/ML 2 ML VIAL IV PRN (08:02)
[2022-03-08] MEDS: HYDROXYCHLOROQUINE SULFATE 200 MG TAB PO SCH (09:51)
[2022-03-08] MEDS: METOPROLOL SUCC 50MG EXT REL TAB PO SCH (09:51)
[2022-03-08] MEDS: AMIODARONE 200 MG TAB PO SCH (09:51)
[2022-03-08] MEDS: PANTOprazole 40 MG TAB PO SCH (09:51)
[2022-03-08] MEDS: VALSARTAN/SACUBITRIL 26/24MG TAB PO SCH ×2 (09:51→20:36)
[2022-03-08] MEDS: HEPARIN SOD 5,000 UNIT/0.5 ML VIAL SQ SCH ×2 (09:51→20:33)
[2022-03-08] MEDS: ASPIRIN 81 MG ECTAB PO SCH (09:51)
[2022-03-08] MEDS: SPIRONOLACTONE 25 MG TAB PO SCH (09:51)
[2022-03-08] MEDS: CYCLOBENZAPRINE HCL 5 MG TAB PO PRN ×2 (09:51→22:54)
[2022-03-08] MEDS: TICAGRELOR 90 MG TAB PO SCH ×2 (09:52→20:35)
--- NOTE | 2022-03-08 12:05 | Cardiology Progress Note ---
Date of Service March 08, 2022 Assessment & Plan (1) CAD (coronary artery disease): (2) S/P coronary artery stent placement: (3) Ischemic cardiomyopathy: (4) Chronic systolic CHF (congestive heart failure): (5) S/P ICD (internal cardiac defibrillator) procedure: (6) Hypertension: (7) Hyperlipidemia: (8) Ventricular tachycardia: Plan ASSESSMENT/PLAN: 1. CAD s/p VT and PCI: Records from her February 2022 VT hospitalization not available. No angina. Continue aspirin 81 mg daily indefinitely. Continue Brilinta for at least 1 year. Continue high-intensity statin therapy and beta- estela. Given that she had a significant VT, Spironolactone initiated. Cardiac rehab. 2. Chronic heart failure with reduced EF: She appears euvolemic today. Had Lasix 20 mg IV yesterday. Creatinine is up slightly this am. Would discharge with Lasix 20 mg PRN with close monitoring (weight gain, SOB, edema). She should have outpatient labs prior to her HF follow up. Continue spironolactone 25 mg p.o. daily, Entresto, and metoprolol succinate. Continue to titrate as outpatient, may be limited secondary to hypotension. Recommend SGLT2i at the time of discharge. Enroll in the heart failure program. This was discussed and she was agreeable to enrollment. Low-sodium diet, less than 2000 mg daily. Strict I&Os. Recommended daily weights and to bring her weights to each appointment in the outpatient setting. 3. Ischemic cardiomyopathy: Will repeat echo as an outpatient after titration of her medical therapy. ICD in place for secondary prevention. 4. Ventricular tachycardia: Presumed ventricular tachycardia as she was awake for the event but required emergent cardioversion. On amiodarone. Will arrange for electrophysiology consultation as an outpatient for management of her ventricular arrhythmia and also ICD. Monitor transaminase levels and TSH closely while on amiodarone. 5. ICD: Electrophysiology referral for device management. 6. Hypertension: Blood pressure has been well controlled. Hypotensive today but asymptomatic. May limit titration. 7. Dyslipidemia: Continue high-intensity statin therapy. Goal LDL < 70. 8. Nausea: As per primary service. 9. Disposition: Close follow-up in the cardiology outpatient office will be arranged. Heart failure follow up- 03/16/22 at 1030. Will also need EP follow up. Admission and Anticipated Discharge Date Admission Date: March 08, 2022 Subjective Patient is sitting comfortably in the bedside chair. She reports she's feeling ok this morning. She did not sleep well due to back pain and nausea. She denies PND. Her head was slightly elevated for comfort. She feels like she needs to take a deep breath intermittently while at rest. She fernández been ambulating to the bathroom and worked with PT this am without much difficulty. She is saturating well on room air. Weight is 112 lb today on standing scale. I&Os neutral but with multiple unmeasured voids. She denies chest pain, cough, or palpitations. Physical Exam Physical Exam: Gen.: No acute distress. Alert and oriented. HEENT: Anicteric sclera. Neck: No appreciable JVD. No hepatic jugular reflux. No bruits. Normal carotid upstrokes bilaterally. Cardiac: PMI was nondisplaced. No ventricular heave. Regular rate and rhythm. No rmal S1-S2. S3 noted. 1/6 systolic murmur. No rubs or gallops. Pulmonary: Normal respiratory effort. Clear to auscultation bilaterally without wheezes, rales, or rhonchi. Abdomen: Soft, nontender, nondistended, with normoactive bowel sounds. No bruits noted. Extremities: 2+ radial pulses bilaterally. 2+ posterior tibialis pulses bilaterally. No edema or cyanosis. Psychiatric: Affect appears appropriate. Left chest: ICD site well healed without erythema or discharge. Results & Data ([facility]) Vital Signs (Past 12 Hours) Vital Signs Temp Pulse Pulse Pulse Resp BP Pulse Ox 03/08/22 11:21 97.3 F L 83 18 92/57 L 98 03/08/22 10:47 68 03/08/22 07:21 97.9 F 64 18 92/54 L 95 03/08/22 03:48 73 18 121/75 03/08/22 02:38 97.9 F 71 18 90/57 L 95 03/08/22 00:00 O2 Del Method 03/08/22 11:21 Room Air 03/08/22 10:47 03/08/22 07:21 Room Air 03/08/22 03:48 03/08/22 02:38 Room Air 03/08/22 00:00 Room Air PG Care Time/CCT Total # of Minutes Spent Total Time Spent with Patient: Total time spent is greater than 50% in coordination of care (as documented) at patient's floor/unit and/or counseling patient: Coding Level of Care Code 13333 Subseq Hosp Care Lvl 3 Diagnoses CAD (coronary artery disease) I25.10 S/P coronary artery stent placement Z95.5 Ischemic cardiomyopathy I25.5 Chronic systolic CHF (congestive heart failure) I50.22 S/P ICD (internal cardiac defibrillator) procedure Z95.810 Hypertension I10 Hypertension type: primary hypertension Hyperlipidemia E78.5 Ventricular tachycardia I47.2 (1) Hypertension Hypertension type: primary hypertension Qualified Code(s): I10 - Essential (primary) hypertension
--- NOTE | 2022-03-08 12:37 | Hospitalist Progress Note ---
Date of Service March 08, 2022 Assessment & Plan (1) Hyperlipidemia: (2) Chronic systolic CHF (congestive heart failure): (3) S/P coronary artery stent placement: (4) DVT prophylaxis: (5) CAD (coronary artery disease): (6) Nausea & vomiting: (7) Elevated troponin: (8) Stage 3b chronic kidney disease: (9) Chronic hyponatremia: (10) Rheumatoid arthritis: (11) Restless leg syndrome: Plan #Nausea & vomiting -Vomiting is resolving and nausea is improved with prn Zofran. -Most likely d/t recent traveling, new medications, and not an infectious source. #Weight loss -Patient has poor appetite; nutrition consulted. -Patient's weight loss is a little bit of a concern and should be continued to monitored on discharge. -Consider CT Abd/Pelvis for further work up #Generalized weakness - deconditioning from recent UT - lives alone - will need cardiac rehab on discharge; but in the short term, PT and OT recommending SNF -Case manger aware--likely for [facility] #HFrEF--ischemic etiology--slight fluid overload, in exacerbation. -TTE here with showed EF 35%; with akinesis of the inferolateral wall and base to mid anterolateral wall; anterior and inferior soto are hypokinetic but not well visualized -BNP was 1716 -Given Lasix 20mg IV today -Start spironolactone 25mg PO daily and Entresto -Continue metoprolol succinate 100mg daily -Stop losartan -SGLT-2 inhibitor at the time of discharge -Will follow up with HF program as an outpatient -Monitor I's and O's, daily weights -Will need cardiac rehab on discharge #CAD (coronary artery disease), HLD - Continue ASA and Brillinta - Continue metoprolol succinate 100 mg daily - Continue atorvastatin 80mg daily; goal LDL < 70 - Appreciate cardiology recommendations #History of ventricular arrhythmia - continue home amiodarone 200mg daily - Has ICD in place - can follow with EP as an outpatient #Elevated troponin (s/p acute UT in [place] requiring 1 stent) -On admission, troponin was 3,736. Flat troponins x 3. -Per H&P's note, Troponin when she was admitted with UT in [place] around 65,000 -EKG here without acute ischemic changes -Will monitor EKG and clinical signs of acute cardiac ischemia. #Hypertension: - BP in acceptable range since admission and maybe even slightly low - Holding home amlodipine since we have started Entresto - stopped losartan #Hyponatremia: -Has been as low as 123 in the past. Na is 131 today. 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 -Cr today was 1.1 -Will continue to monitor in AM labs #Rheumatoid arthritis - Continue home Plaquenil - Continue GI ppx with Protonix #Periodic limb movement disorder: - Continue home rotigotine patch (brought from home) - received 1 time dose of 0.25mg Ativan between patches due to severe symptoms on 03/07 #Hypothyroidism -TSH was elevated at 11.8 on presentation. No signs/symptoms of hypothyroidism -Most likely due to sick thyroid -Repeat TSH pending for tomorrow AM, but continue synthroid 100mcg in the meantime -Continue home Synthroid 100 mcg. -Patient recently prescribed amiodarone which can cause a elevated TSH but unlikely the cause due to recently been added. -Will need repeat TSH post-hospital discharge Code status: Conditional Code. "DNR - Discussed with patient. She is DNR, meaning she does not want CPR or further external defibrillation. If ICD is not successful in defibrillating her, she would not want further attempts. She is willing to be intubated for 2-3 days. She reports her family is aware of her wishes. DVT ppx: Heparin SQ Q12h Consults: Cardiology Dispo: med/surg Thank you for allowing me to participate in the care of your patient. -Dr. Yanick Zuleta PGY1 Admission and Anticipated Discharge Date Admission Date: March 08, 2022 Supervising Physician Co-Signing Physician Notes Patient seen and examined independently of PGY-1 Dr. Zuleta. Agree with history, exam findings, assessment and plan of care as outlined. In brief, Shruthi is a 81 year old female with history of CAD (recent UT and ventricular arrhythmia with subsequent ICD placement), RA, HTN, restless leg adm itted with nausea. Has not had any further vomiting. Some nausea, but improved with zofran. Reports >10 pound weight loss over the last few months. She reports decreased appetite and a sensation of just being exhausted with eating/early satiety. This is not normal for her. No night sweats, chills. No unexplained fevers. No abdominal pain, nausea or vomiting correlated with oral intake. Had an EGD and colonoscopy a couple of years ago with Dr. Jama that were normal. VS and nursing notes reviewed. Well appearing. No JVD Heart with regular rate and rhythm. Trace edema in the lower extremities. Lungs are clear to auscultation throughout. ICD in the upper left chest. Overlying and surrounding skin with erythemat. Labs and imaging reviewed. 1. Nausea. Not an anginal equivalent. Troponins x3 were flat. ?secondary to recent travel and new medications. 2. Elevated troponin in the setting of known CAD and recent cath. Serial troponins have been flat 3. Chest pain. Secondary to recent ICD placement. No signs of infection. 4. CAD, recent UT. Recently had a stent placed in [place]. Continue ASA and Brillinta x 1 year. Continue atorvastatin 80mg, goal LDL < 70. 5. HFrEF. Ischemic etiology. EF 35%. Normal LV side with reduced EF. Akinesis of the inferolateral wall and base to mid anterolateral wall. Anterior and inferior soto are hypokinetic but not well visualized. Started Entresto. Stopped home losartan. Start spironolactone 25mg daily. Continue home metoprolol XL 100mg. Slightly elevated BNP. Received 20mg IV Lasix yesterday. Appreciate cardiology recommendations. 6. History of ventricular arrhythmia. Has ICD placed. Continue amiodarone 200mg daily. Ok to remove sling to avoid frozen shoulder and frozen elbow. Can follow up with EP for device monitoring. 7. HTN. Discontinue home amlodipine, given that we have started several new medications that affect her blood pressure. 8. Weight loss/decreased appetite. Unclear if this is due to slow deconditioning from recent cardiac issue vs malignancy. Consider CT A/P for further work up. 9. Normocytic Anemia. New. Hgb 9.4 (previous baseline 12-13). B12 and folate are appropriate. Awaiting ferritin level. Check FOBT. 10.Hyponatremia. On admission, Na 128. Do not think this is necessarily chronic in nature since Na level from October 2020 through January 2022 have been in a normal range. This may be an acute drop secondary to decreased oral intake as she appears euvolemic today. 11. Elevted AST and AlkP. Normalized. 12. Hypothyroid. TSH 11, free T4 1.52. In October, TSH was at goal of < 2.5. Home dose of levothyroxine is 100mcg. ?Less likely to be due to very recently started amiodarone. Repeat TSH for the AM. 13. CKD, Stage 3b. At baseline. 14. RA. Continue home hydroxychloroquine. 15. Periodic limb movement disorder. Continue Neupro patch. Dispo: pending placement--likely [facility]. PT/OT recommend SNF level (<3 hours) Subjective Patient was seen bedside this morning. She c/o Nausea that has been well controlled on zofran. She has had a normal BM yesterday. Patient states that she has a poor appetitie and has a 10 pound weight loss over the past couple of months. She denies any night sweats. Review of Systems Review of Systems: All systems reviewed & are unremarkable except as noted in HPI & below Physical Exam Constitutional: WD/WN, vitals as above Eyes: EOM intact bilaterally ENMT: external ear and nose normal, oropharynx normal Neck: trachea midline, no thyromegaly normal visual inspection Respiratory: normal respiratory effort, lungs clear to auscultation normal respiratory effort; no respiratory distress Cardiovascular: Rate/Rhythm: regular rate and regular rhythm Extremities: no edema Gastrointestinal (Abdomen): Inspection/Auscultation: abdomen normal to inspection; abdomen not distended Percussion/Palpation: abdomen soft; abdomen nontender, no guarding and abdomen not rigid Musculoskeletal: no cyanosis or clubbing, extremities motor strength 5/5 Skin: no rashes, warm and dry Neurologic: moves all extremities and awake Psychiatric: Orientation: alert, oriented to person and cooperative Results & Data Results & Data ([facility]) Vital Signs (Past 12 Hours) Vital Signs Temp Pulse Pulse Pulse Resp BP Pulse Ox 03/08/22 11:21 36.3 C L 83 18 92/57 L 98 03/08/22 10:47 68 03/08/22 07:21 36.6 C 64 18 92/54 L 95 03/08/22 03:48 73 18 121/75 03/08/22 02:38 36.6 C 71 18 90/57 L 95 O2 Del Method 03/08/22 11:21 Room Air 03/08/22 10:47 03/08/22 07:21 Room Air 03/08/22 03:48 03/08/22 02:38 Room Air Resident Activity Tracking Resident Involvement: Resident Care Provided Care Provided: Adult Hospital Medicine (1) Rheumatoid arthritis Laterality: bilateral Rheumatoid arthritis location: hand Rheumatoid factor presence: without rheumatoid factor Qualified Code(s): M06.041 - Rheumatoid arthritis without rheumatoid factor, right hand; M06.042 - Rheumatoid arthritis without rheumatoid factor, left hand
[2022-03-08] MEDS: ATORVASTATIN 40 MG TAB PO SCH (20:33)
[2022-03-08] MEDS: ROTIGOTINE PATCH TD SCH (20:34)
[2022-03-08] MEDS: [UNRECOGNIZED DRUG - REMARK] SCH (20:35)
[2022-03-09] MEDS: LEVOTHYROXINE SODIUM 100 MCG TABLET PO SCH (05:38)
[2022-03-09 07:49] LABS: Hematocrit (blood only) 29.2 % (34.1-44.9); Hemoglobin 9.6 g/dl (12.0-16.0); Mean Corpuscular Hgb Conc 32.9 g/dL (32.0-36.0); Mean Corpuscular Volume 91.3 fL (80.0-100.0); Mean Platelet Volume 8.7 fL (9.4-12.3); Platelet Count 399 K/uL (130-400); RDW Coefficient of Variation 13.5 % (11.5-14.5); RDW Standard Deviation 45.1 fL (36.4-46.3); White Blood Count 8.04 K/ul (4.8-10.8)
[2022-03-09 08:09] LABS: Basophils # (auto) 0.09 K/uL (0-0.2); Basophils % (auto) 1.1 %; Eosinophils # (auto) 0.31 K/uL (0-0.50); Eosinophils % (auto) 3.9 %; Immature Granulocytes # (auto) 0.55 K/uL (0.00-0.02); Immature Granulocytes % (auto) 6.8 %; Lymphocytes # (auto) 1.97 K/uL (1.2-3.4); Lymphocytes % (auto) 24.5 %; Monocytes # (auto) 0.95 K/uL (0.24-0.82); Monocytes % (auto) 11.8 %; Neutrophils # (auto) 4.17 K/uL (1.4-6.5); Neutrophils % (auto) 51.9 %; RBC Morphology Unremarkable
[2022-03-09 08:20] LABS: Albumin Level 2.9 gm/dl (3.4-5.0); Bilirubin,Total 0.6 mg/dl (0.2-1.0); Calcium 8.4 mg/dl (8.5-10.1); Creatinine Clr Calc Pharmacy 22.1 ml/min; Est GFR (Non-African American) 32.8 ml/min; Potassium 4.4 mmol/L (3.5-5.1); Total Protein 5.9 gm/dl (6.0-8.3)
[2022-03-09] MEDS: METOPROLOL SUCC 50MG EXT REL TAB PO SCH (08:32)
[2022-03-09] MEDS: ASPIRIN 81 MG ECTAB PO SCH (08:32)
[2022-03-09] MEDS: HYDROXYCHLOROQUINE SULFATE 200 MG TAB PO SCH (08:32)
[2022-03-09] MEDS: PANTOprazole 40 MG TAB PO SCH ×2 (08:32→20:10)
[2022-03-09] MEDS: SPIRONOLACTONE 25 MG TAB PO SCH (08:32)
[2022-03-09] MEDS: VALSARTAN/SACUBITRIL 26/24MG TAB PO SCH ×2 (08:32→20:09)
[2022-03-09] MEDS: AMIODARONE 200 MG TAB PO SCH (08:33)
[2022-03-09] MEDS: HEPARIN SOD 5,000 UNIT/0.5 ML VIAL SQ SCH ×2 (08:33→20:10)
[2022-03-09] MEDS: TICAGRELOR 90 MG TAB PO SCH ×2 (08:33→20:09)
[2022-03-09] MEDS: traMADol HCL 50 MG TABLET PO PRN ×2 (08:47→23:11)
--- NOTE | 2022-03-09 10:57 | Cardiology Progress Note ---
Date of Service March 09, 2022 Assessment & Plan (1) CAD (coronary artery disease): (2) S/P coronary artery stent placement: (3) Ischemic cardiomyopathy: (4) Chronic systolic CHF (congestive heart failure): (5) S/P ICD (internal cardiac defibrillator) procedure: (6) Hypertension: (7) Hyperlipidemia: (8) Ventricular tachycardia: Plan ASSESSMENT/PLAN: 1. CAD s/p [place] and PCI: Records from her February 2022 [place] hospitalization not available. No angina. Continue aspirin 81 mg daily indefinitely. Continue Brilinta for at least 1 year. Continue high-intensity statin therapy and beta- estela. Given that she had a significant [place], Spironolactone initiated. Cardiac rehab. 2. Chronic heart failure with reduced EF: She appears euvolemic today. She has not had diuretics x 2 days. Creatinine continues to trend up slightly but consistent with her previous baseline. Would discharge with Lasix 20 mg PRN with close monitoring (weight gain, SOB, edema). She was educated on PRN use today. She should have outpatient labs prior to her HF follow up. Continue spironolactone 25 mg p.o. daily, Entresto, and metoprolol succinate. Continue to titrate as outpatient, may be limited secondary to hypotension. Recommend SGLT2i at the time of discharge. Enroll in the heart failure program. This was discussed and she was agreeable to enrollment. Low-sodium diet, less than 2000 mg daily. Strict I&Os. Recommended daily weights and to bring her weights to each appointment in the outpatient setting. 3. Ischemic cardiomyopathy: Will repeat echo as an outpatient after titration of her medical therapy. ICD in place for secondary prevention. 4. Ventricular tachycardia: Presumed ventricular tachycardia as she was awake for the event but required emergent cardioversion. On amiodarone. Will arrange for electrophysiology consultation as an outpatient for management of her v entricular arrhythmia and also ICD. Monitor transaminase levels and TSH closely while on amiodarone. 5. ICD: Electrophysiology referral for device management. 6. Hypertension: Blood pressure has been well controlled. Hypotensive today but asymptomatic. May limit titration. 7. Dyslipidemia: Continue high-intensity statin therapy. Goal LDL < 70. 8. Nausea: As per primary service. 9. Disposition: Close follow-up in the cardiology outpatient office will be arranged. Heart failure follow up- 03/16/22 at 1030. Will also need EP follow up. Admission and Anticipated Discharge Date Admission Date: March 08, 2022 Subjective Patient is resting comfortably in bed. She reports she's feeling well this morning. She slept well last night. She denies PND. Her head was slightly elevated for comfort. She feels like she needs to take a deep breath intermittently while at rest. She fernández been ambulating to the bathroom and worked with PT without much difficulty. She is saturating well on room air. Weight is trending up but not a standing weight. I&Os are positive but with multiple unmeasured voids. She denies chest pain, cough, or palpitations. Physical Exam Physical Exam: Gen.: No acute distress. Alert and oriented. HEENT: Anicteric sclera. Neck: No appreciable JVD. No hepatic jugular reflux. No bruits. Normal carotid upstrokes bilaterally. Cardiac: PMI was nondisplaced. No ventricular heave. Regular rate and rhythm. Normal S1-S2. S3 noted. 1/6 systolic murmur. No rubs or gallops. Pulmonary: Normal respiratory effort. Clear to auscultation bilaterally without wheezes, rales, or rhonchi. Abdomen: Soft, nontender, nondistended, with normoactive bowel sounds. No bruits noted. Extremities: 2+ radial pulses bilaterally. 2+ posterior tibialis pulses bilater ally. No edema or cyanosis. Psychiatric: Affect appears appropriate. Left chest: ICD site healing well. Results & Data ([facility]) Vital Signs (Past 12 Hours) Vital Signs Temp Pulse Pulse Resp BP Pulse Ox O2 Del Method 03/09/22 07:59 61 03/09/22 07:57 98.2 F 68 18 103/66 94 Room Air 03/09/22 03:06 97.9 F 59 L 16 104/66 94 Room Air 03/08/22 23:15 97.9 F 81 16 92/51 L 97 Room Air PG Care Time/CCT Total # of Minutes Spent Total Time Spent with Patient: Total time spent is greater than 50% in coordination of care (as documented) at patient's floor/unit and/or counseling patient: Coding Level of Care Code 95841 Subseq Hosp Care Lvl 3 Diagnoses CAD (coronary artery disease) I25.10 S/P coronary artery stent placement Z95.5 Ischemic cardiomyopathy I25.5 Chronic systolic CHF (congestive heart failure) I50.22 S/P ICD (internal cardiac defibrillator) procedure Z95.810 Hypertension I10 Hypertension type: primary hypertension Hyperlipidemia E78.5 Ventricular tachycardia I47.2 (1) Hypertension Hypertension type: primary hypertension Qualified Code(s): I10 - Essential (primary) hypertension
[2022-03-09] MEDS: ACETAMINOPHEN 500 MG TAB PO PRN (12:21)
[2022-03-09] MEDS: ONDANSETRON INJ 2 MG/ML 2 ML VIAL IV PRN ×2 (13:03→19:24)
--- NOTE | 2022-03-09 16:21 | Hospitalist Progress Note ---
Date of Service March 09, 2022 Assessment & Plan (1) Hyperlipidemia: (2) Chronic systolic CHF (congestive heart failure): (3) S/P coronary artery stent placement: (4) DVT prophylaxis: (5) CAD (coronary artery disease): (6) Nausea & vomiting: (7) Elevated troponin: (8) Stage 3b chronic kidney disease: (9) Chronic hyponatremia: (10) Rheumatoid arthritis: (11) Restless leg syndrome: (12) Dehydration, mild: Plan #Nausea & vomiting -Vomiting is resolving and nausea is improved with prn Zofran. -Most likely d/t recent traveling, new medications, and not an infectious source. #Generalized weakness #Poor appetite #Weight loss -Patient has poor appetite; nutrition consulted. - will need cardiac rehab on discharge; but in the short term, PT and OT recommending SNF -Case manger aware--likely for [facility] Fecal + blood -Patient's hemoglobin has been stable. -Patient will need colonoscopy on discharge #Mild dehydration -Patient blood pressure is a little low, cr went up to 1.5 -Fluids not needed at this time, will hold Lasix at this time and monitor tomorrow. #HFrEF--ischemic etiology--slight fluid overload, in exacerbation. -TTE here with showed EF 35%; with akinesis of the inferolateral wall and base to mid anterolateral wall; anterior and inferior soto are hypokinetic but not well visualized -BNP was 1716 must like 2/2 [facility] last week. -Given Lasix 20mg IV today. Holding lasix for now. -Start spironolactone 25mg PO daily and Entresto -Continue metoprolol succinate 100mg daily -Stop losartan -SGLT-2 inhibitor at the time of discharge -Will follow up with HF program as an outpatient -Monitor I's and O's, daily weights -Will need cardiac rehab on discharge #CAD (coronary artery disease), HLD - Continue ASA and Brillinta - Continue metoprolol succinate 100 mg daily - Continue atorvastatin 80mg daily; goal LDL < 70 - Appreciate cardiology recommendations #History of ventricular arrhythmia - continue home amiodarone 200mg daily - Has ICD in place - can follow with EP as an outpatient #Elevated troponin (s/p acute [facility] in [place] requiring 1 stent) -On admission, troponin was 3,736. Flat troponins x 3. -Per H&P's note, Troponin when she was admitted with [facility] in [place] around 65,000 -EKG here without acute ischemic changes -Will monitor EKG and clinical signs of acute cardiac ischemia. #Hypertension: - BP in acceptable range since admission and maybe even slightly low - Holding home amlodipine since we have started Entresto - stopped losartan #Hyponatremia: -Has been as low as 123 in the past. Na is 131 today. 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 -Cr today was 1.1 -Will continue to monitor in AM labs #Rheumatoid arthritis - Continue home Plaquenil - Continue GI ppx with Protonix #Periodic limb movement disorder: - Continue home rotigotine patch (brought from home) - received 1 time dose of 0.25mg Ativan between patches due to severe symptoms on 03/07 #Hypothyroidism -TSH was elevated at 11.8 on presentation. No signs/symptoms of hypothyroidism -Most likely due to sick thyroid -Repeat TSH pending for tomorrow AM, but continue synthroid 100mcg in the [place] antime -Continue home Synthroid 100 mcg. -Patient recently prescribed amiodarone which can cause a elevated TSH but unlikely the cause due to recently been added. -Will need repeat TSH post-hospital discharge Code status: Conditional Code. "DNR - Discussed with patient. She is DNR, meaning she does not want CPR or further external defibrillation. If ICD is not successful in defibrillating her, she would not want further attempts. She is willing to be intubated for 2-3 days. She reports her family is aware of her wishes. DVT ppx: Heparin SQ Q12h Consults: Cardiology Dispo: med/surg Thank you for allowing me to participate in the care of your patient. -Dr. Yanick Zuleta PGY1 Admission and Anticipated Discharge Date Admission Date: March 08, 2022 Supervising Physician Co-Signing Physician Notes I personally examined the patient and verified all haynes points of history and exam, discussed case, and agree with decision making with Dr Zuleta Still with some degree of nausea. Also notes early satiety. This seems to have contributed to the weight loss. She notes that [place] eat much while she was [place], and definitely predates her [facility]. She relates that it probably got worse that she was flying back, although most of this was gleaned from very directed questioni ng. Not feeling weak or lightheaded. No orthostasis. Vitals noted, in general she is awake and alert pleasant no distress. HEENT normocephalic atraumatic mucous membranes moist. Breathing unlabored no accessory muscle use good effort. Abdomen shows no significant epigastric tendernessmaybe mild discomfort but really even then only to deep palpation no guarding rebound or rigidity. No masses organomegaly.. 1. Nausea. Not an anginal equivalent. Troponins x3 were flat. Seems to be multifactorialprobably gastric in etiology given the nausea, early satiety, food aversionall leading to mild malnutrition with 10 pounds of weight lossfor now, aggressive acid suppression and supportive care, low threshold for EGD if she does not improve, or if medications are not able to be weaned. 2. Elevated troponin in the setting of known CAD and recent cath. Serial troponins have been flat 3. Chest pain. Secondary to recent ICD placement. No signs of infection. 4. CAD, recent [facility]. Recently had a stent placed in [place]. Continue ASA a nd Brillinta x 1 year. Continue atorvastatin 80mg, goal LDL < 70. 5. Acute on chronic systolic CHF initiallynow more compensated to what appears to be chronic systolic CHF. HFrEF. Ischemic etiology. EF 35%. Normal LV side with reduced EF. Akinesis of the inferolateral wall and base to mid anterolateral wall. Anterior and inferior soto are hypokinetic but not well visualized. Started Entresto. Continue med management/afterload reduction 6. History of ventricular arrhythmia. Has ICD placed. Continue amiodarone 200mg daily. Ok to remove sling to avoid frozen shoulder and frozen elbow. Can follow up with EP for device monitoring. 7. HTN. Meds as per HFrEF. Blood pressure quite tightbut no symptoms. 8. Weight loss/decreased appetite. With mild malnutrition/weight losssee above, most likely would tie together with nausea. Aggressive acid suppression, low threshold for EGD. With fecal occult blood positiveshe will need a colonoscopy evaluation in the near future regardless. 9. Normocytic Anemia. New. Hgb 9.4 (previous baseline 12-13). B12 and folate are appropriate. FOBT positive. GI evaluation as outpatient 10.Hyponatremia. Fairly mild. Follow periodically 11. Elevted AST and AlkP. Normalized. 12. Hypothyroid. TSH likely sick euthyroidoutpatient follow-up.. 13. CKD, Stage 3b. At baseline. 14. RA. Continue home hydroxychloroquine. 15. Periodic limb movement disorder. Continue Neupro patch. Dispo: pending placement--likely [facility]. Subjective Patient was seen bedside this afternoon. She c/o poor appetite and nausea. She states that the poor appetite started during her trip to [place]. Her nausea is controlled with Zofran and she says that she has had this nausea for a long time now. She usually treats it just with darien theodora but when she was coming home from her trip darien theodora was not able to completely control it. She denies any SOB, orthopnea, or chest pain. Review of Systems Review of Systems: All systems reviewed & are unremarkable except as noted in HPI & below Physical Exam Constitutional: WD/WN, vitals as above Eyes: EOM intact bilaterally ENMT: external ear and nose normal, oropharynx normal Neck: trachea midline, no thyromegaly normal visual inspection Respiratory: normal respiratory effort, lungs clear to auscultation normal respiratory effort; no respiratory distress Cardiovascular: Rate/Rhythm: regular rate and regular rhythm Extremities: no edema Gastrointestinal (Abdomen): Inspection/Auscultation: abdomen normal to inspection; abdomen not distended Percussion/Palpation: abdomen soft; abdomen nontender, no guarding and abdomen not rigid Musculoskeletal: no cyanosis or clubbing, extremities motor strength 5/5 Skin: no rashes, warm and dry Neurologic: moves all extremities and awake Psychiatric: Orientation: alert, oriented to person and cooperative Results & Data Results & Data ([facility]) Vital Signs (Past 12 Hours) Vital Signs Temp Pulse Pulse Resp BP BP Pulse Ox 03/09/22 11:15 36.8 C 58 L 18 102/68 95 03/09/22 07:59 61 03/09/22 07:57 36.8 C 68 18 103/66 94 O2 Del Method 03/09/22 11:15 Room Air 03/09/22 07:59 03/09/22 07:57 Room Air Resident Activity Tracking Resident Involvement: Resident Care Provided Care Provided: Adult Hospital Medicine (1) Rheumatoid arthritis Laterality: bilateral Rheumatoid arthritis location: hand Rheumatoid factor presence: without rheumatoid factor Qualified Code(s): M06.041 - Rheumatoid arthritis without rheumatoid factor, right hand; M06.042 - Rheumatoid arthritis without rheumatoid factor, left hand
--- NOTE | 2022-03-09 17:42 | Billing Data ---
Date of Service March 09, 2022 Coding Level of Care Code 84467 Subseq Hosp Care Lvl 3
[2022-03-09] MEDS: ATORVASTATIN 40 MG TAB PO SCH (20:09)
[2022-03-09] MEDS: [UNRECOGNIZED DRUG - REMARK] SCH (20:10)
[2022-03-09] MEDS: ROTIGOTINE PATCH TD SCH (20:11)
[2022-03-09] MEDS: FAMOTIDINE 20 MG TAB PO SCH (23:11)
[2022-03-10] MEDS: LEVOTHYROXINE SODIUM 100 MCG TABLET PO SCH (05:46)
[2022-03-10] MEDS: ACETAMINOPHEN 500 MG TAB PO PRN (05:52)
[2022-03-10 07:20] LABS: Hematocrit (blood only) 28.6 % (34.1-44.9); Hemoglobin 9.3 g/dl (12.0-16.0); Mean Corpuscular Hemoglobin 30.1 pg (25.0-34.0); Mean Corpuscular Hgb Conc 32.5 g/dL (32.0-36.0); Mean Corpuscular Volume 92.6 fL (80.0-100.0); Mean Platelet Volume 8.5 fL (9.4-12.3); Platelet Count 388 K/uL (130-400); RDW Coefficient of Variation 13.9 % (11.5-14.5); RDW Standard Deviation 46.7 fL (36.4-46.3); Red Blood Count 3.09 M/uL (3.93-5.22); White Blood Count 7.67 K/ul (4.8-10.8)
--- NOTE | 2022-03-10 07:39 | Hospitalist Progress Note ---
Date of Service March 10, 2022 Assessment & Plan (1) Hyperlipidemia: (2) Chronic systolic CHF (congestive heart failure): (3) S/P coronary artery stent placement: (4) DVT prophylaxis: (5) CAD (coronary artery disease): (6) Nausea & vomiting: (7) Elevated troponin: (8) Stage 3b chronic kidney disease: (9) Chronic hyponatremia: (10) Rheumatoid arthritis: (11) Restless leg syndrome: (12) Dehydration, mild: Plan #Nausea & vomiting -Vomiting is resolving and nausea is improved with prn Zofran. -Most likely d/t recent traveling, new medications, and not an infectious source. #Generalized weakness #Poor appetite #Weight loss -Patient has poor appetite; nutrition consulted. - will need cardiac rehab on discharge; but in the short term, PT and OT recommending SNF -Case manger aware--likely for [facility] Fecal + blood -Patient's hemoglobin has been stable. -Patient will need colonoscopy on discharge #Mild dehydration -Patient blood pressure is a little low, cr went up to 1.5 -Fluids not needed at this time, will hold Lasix at this time and monitor tomorrow. #HFrEF--ischemic etiology--slight fluid overload, in exacerbation. -TTE here with showed EF 35%; with akinesis of the inferolateral wall and base to mid anterolateral wall; anterior and inferior soto are hypokinetic but not well visualized -BNP was 1716 must like 2/2 CT last week. -Given Lasix 20mg IV today. Holding lasix for now. -Start spironolactone 25mg PO daily and Entresto -Continue metoprolol succinate 100mg daily -Stop losartan -SGLT-2 inhibitor at the time of discharge -Will follow up with HF program as an outpatient -Monitor I's and O's, daily weights -Will need cardiac rehab on discharge #CAD (coronary artery disease), HLD - Continue ASA and Brillinta - Continue metoprolol succinate 100 mg daily - Continue atorvastatin 80mg daily; goal LDL < 70 - Appreciate cardiology recommendations #History of ventricular arrhythmia - continue home amiodarone 200mg daily - Has ICD in place - can follow with EP as an outpatient #Elevated troponin (s/p acute CT in [place] requiring 1 stent) -On admission, troponin was 3,736. Flat troponins x 3. -Per H&P's note, Troponin when she was admitted with CT in [place] around 65,000 -EKG here without acute ischemic changes -Will monitor EKG and clinical signs of acute cardiac ischemia. #Hypertension: - BP in acceptable range since admission and maybe even slightly low - Holding home amlodipine since we have started Entresto - stopped losartan #Hyponatremia: -Has been as low as 123 in the past. Na is 131 today. 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 -Cr today was 1.1 -Will continue to monitor in AM labs #Rheumatoid arthritis - Continue home Plaquenil - Continue GI ppx with Protonix #Periodic limb movement disorder: - Continue home rotigotine patch (brought from home) - received 1 time dose of 0.25mg Ativan between patches due to severe symptoms on 03/07 #Hypothyroidism -TSH was elevated at 11.8 on presentation. No signs/symptoms of hypothyroidism -Most likely due to sick thyroid -Repeat TSH pending for tomorrow AM, but continue synthroid 100mcg in the vt antime -Continue home Synthroid 100 mcg. -Patient recently prescribed amiodarone which can cause a elevated TSH but unlikely the cause due to recently been added. -Will need repeat TSH post-hospital discharge Code status: Conditional Code. "DNR - Discussed with patient. She is DNR, meaning she does not want CPR or further external defibrillation. If ICD is not successful in defibrillating her, she would not want further attempts. She is willing to be intubated for 2-3 days. She reports her family is aware of her wishes. DVT ppx: Heparin SQ Q12h Consults: Cardiology Dispo: med/surg Thank you for allowing me to participate in the care of your patient. -Dr. Yanick Zuleta PGY1 Admission and Anticipated Discharge Date Admission Date: March 08, 2022 Physical Exam Constitutional: WD/WN, vitals as above Eyes: EOM intact bilaterally ENMT: external ear and nose normal, oropharynx normal Neck: trachea midline, no thyromegaly normal visual inspection Respiratory: normal respiratory effort, lungs clear to auscultation normal respiratory effort; no respiratory distress Cardiovascular: Rate/Rhythm: regular rate and regular rhythm Extremities: no edema Gastrointestinal (Abdomen): Inspection/Auscultation: abdomen normal to inspection; abdomen not distended Percussion/Palpation: abdomen soft; abdomen nontender, no guarding and abdomen not rigid Musculoskeletal: no cyanosis or clubbing, extremities motor strength 5/5 Skin: no rashes, warm and dry Neurologic: moves all extremities and awake Psychiatric: Orientation: alert, oriented to person and cooperative Results & Data Results & Data ([facility]) Vital Signs (Past 12 Hours) Vital Signs Temp Pulse Pulse Resp BP Pulse Ox O2 Del Method 03/10/22 07:05 74 03/10/22 03:56 36.9 C 68 18 98/60 L 95 Room Air 03/09/22 22:39 36.8 C 80 18 99/62 L 91 Room Air 03/09/22 23:36 69 (1) Rheumatoid arthritis Rheumatoid arthritis location: hand Rheumatoid factor presence: without rheumatoid factor Laterality: bilateral Qualified Code(s): M06.041 - Rheumatoid arthritis without rheumatoid factor, right hand; M06.042 - Rheumatoid arthritis without rheumatoid factor, left hand
[2022-03-10 07:53] LABS: BUN Creatinine Ratio 17.1 (10-20); Calcium 8.5 mg/dl (8.5-10.1); Creatinine Clr Calc Pharmacy 19.8 ml/min; Est GFR (African American) 34.1 ml/min; Est GFR (Non-African American) 29.4 ml/min; Potassium 4.7 mmol/L (3.5-5.1)
[2022-03-10] MEDS: SUCRALFATE 1 GM/10 ML UDC PO SCH ×2 (08:05→12:06)
[2022-03-10] MEDS: PANTOprazole 40 MG TAB PO SCH (08:05)
[2022-03-10] MEDS: FAMOTIDINE 20 MG TAB PO SCH (08:05)
[2022-03-10] MEDS: TICAGRELOR 90 MG TAB PO SCH (08:06)
[2022-03-10] MEDS: HYDROXYCHLOROQUINE SULFATE 200 MG TAB PO SCH (08:06)
[2022-03-10] MEDS: METOPROLOL SUCC 50MG EXT REL TAB PO SCH (08:06)
[2022-03-10] MEDS: ASPIRIN 81 MG ECTAB PO SCH (08:06)
[2022-03-10] MEDS: VALSARTAN/SACUBITRIL 26/24MG TAB PO SCH (08:06)
[2022-03-10] MEDS: AMIODARONE 200 MG TAB PO SCH (08:06)
[2022-03-10] MEDS: HEPARIN SOD 5,000 UNIT/0.5 ML VIAL SQ SCH (08:06)
[2022-03-10] MEDS: SPIRONOLACTONE 25 MG TAB PO SCH (08:06)
[2022-03-10] MEDS: ONDANSETRON INJ 2 MG/ML 2 ML VIAL IV PRN (09:30)
--- NOTE | 2022-03-10 17:56 | Billing Data ---
Date of Service March 10, 2022 Coding Level of Care Code D/C DAY MANAGEMENT <30 MINS
--- NOTE | 2022-03-11 00:11 | Discharge Summary ---
Date of Service March 11, 2022 Admission HPI Per Admitting Provider 81yo F w/ hx of rheumatoid arthritis, restless leg, and recent OR who presents with nausea and vomiting. The patient's history is very interesting. She was in [place] for a [employer] conference. She had had about 3 days of nausea and unsettled stomach. On 02/25, she began to have chest pressure (9/10) with radiation up to the left jaw along with worsening of her nausea. There were no exacerbating or ameliorating factors that she recalls. She presented to an ER near her hotel and was diagnosed as having an acute OR. It is not clear whether this was a STEMI or NSTEMI, and the patient does not recall; however, her notes indicate that her HS-trop at the time of presentation were 65,478 pg/mL. She reports she was transferred to another hospital, and she reports one spacecraft systems engineer attempt to do the catheterization, but could not, so they had to call a second spacecraft systems engineer in to put in her stent. Per report from the ER provider, the stent is in the LCx, but the patient is not sure about this. At some point in the hospitalization, she reports she began to have chest pain again, similar to her presenting chest pain. She reports that they put two plastic pads on her. The doctor told her "Your heart is dying." and then she reports, "The world exploded." After that event (presumably an episode of VT and emergent cardioversion), an ICD was inserted. She was discharged on 03/04 and flew home on 03/05. She reports she was given enough medication from the hospital that she has had enough and has been taking her medication faithfully, including this morning. Yesterday, while traveling home, she reports that she was tired and had some mild nausea and loss of appetite. She was able to eat, just didn't have a lot that was appetizing. This morning, she felt that her bowels were "tight" and had her daughter cut up some fruit for her. She ate just a little and started to have significant nausea and dry heaving which prompted her to come to the hospital. However, she clearly denies any chest pain similar to her presenting chest pain (or any chest pain at all). She was given Zofran and now her nausea has improved as well. Admission Exam Per Admitting Provider Constitutional: WD/WN, vitals as above Eyes: EOM intact bilaterally; no conjunctival abnormality ENMT: external ear and nose normal, oropharynx normal Neck: trachea midline, no thyromegaly normal visual inspection Respiratory: normal respiratory effort, lungs clear to auscultation no respiratory distress Cardiovascular: Rate/Rhythm: regular rate and regular rhythm Extremities: no edema Gastrointestinal (Abdomen): Inspection/Auscultation: abdomen normal to inspection; abdomen not distended Percussion/Palpation: abdomen soft; abdomen nontender, no guarding and abdomen not rigid Musculoskeletal: no cyanosis or clubbing, extremities motor strength 5/5 Skin: no rashes, warm and dry Neurologic: moves all extremities and awake Psychiatric: Orientation: alert, oriented to person and cooperative Principal Diagnosis NAUSEA,EMESIS,RECENT OR,VT ARREST,ICD Discharge Exam Constitutional: WD/WN, vitals as above Eyes: EOM intact bilaterally ENMT: external ear and nose normal, oropharynx normal Neck: trachea midline, no thyromegaly normal visual inspection Respiratory: normal respiratory effort, lungs clear to auscultation normal respiratory effort; no respiratory distress Cardiovascular: L Rate/Rhythm: regular rate and regular rhythm Extremities: no edema Gastrointestinal (Abdomen): Inspection/Auscultation: abdomen normal to inspection; abdomen not distended Percussion/Palpation: abdomen soft; abdomen nontender, no guarding and abdomen not rigid Musculoskeletal: no cyanosis or clubbing, extremities motor strength 5/5 Skin: no rashes, warm and dry Neurologic: moves all extremities and awake Psychiatric: Orientation: alert, oriented to person and cooperative Discharge Data Allergies Allergy/AdvReac Type Severity Reaction Status Date / Time No Known Drug Allergies Allergy Unknown Verified 03/06/22 11:47 Consultations 03/06/22 12:04 ED Decision to Admit Stat 03/06/22 12:10 Consult Cardiology Routine 03/07/22 10:49 [facility] Referral Routine Hospital Course (1) Hyperlipidemia: (2) Chronic systolic CHF (congestive heart failure): (3) S/P coronary artery stent placement: (4) DVT prophylaxis: (5) CAD (coronary artery disease): (6) Nausea & vomiting: (7) Elevated troponin: (8) Stage 3b chronic kidney disease: (9) Chronic hyponatremia: (10) Rheumatoid arthritis: (11) Restless leg syndrome: (12) Dehydration, mild: Plan Nausea & vomiting -Vomiting is resolving and nausea improved with prn Zofran. -Most likely d/t recent traveling, new medications, and not an infectious source -Treating with GI cocktail -- Pantoprazole 40mg BID, famotidine 20mg BID, carafate - Recommend continuing above and tapering as symptoms improve -If continuing, consider discussion with gastroenterology or PCP about possible EGD #Generalized weakness #Poor appetite #Weight loss -Patient has poor appetite; nutrition consulted. - will need cardiac rehab on discharge; but in the short term, PT and OT recommending SNF -Case manger aware -- plan for [facility] -Patient's hemoglobin has been stable. -Patient will need colonoscopy on discharge -- recommend outpatient follow up with PCP for discussion #Mild dehydration -Patient blood pressure is a little low, cr went up to 1.6 (baseline usually around 1.3) -IV fluids held in the setting of HFrEF, Lasix held -Recommend increasing PO intake and monitor closely at rehab #HFrEF--ischemic etiology--slight fluid overload, in exacerbation. -TTE here with showed EF 35%; with akinesis of the inferolateral wall and base to mid anterolateral wall; anterior and inferior soto are hypokinetic but not well visualized -BNP was 1716 most likely 2/2 OR last week. -Given Lasix 20mg IV earlier in hospitalization-- none further given in light of above -Start spironolactone 25mg PO daily and Entresto 26/ -Continue metoprolol succinate 100mg daily -Stop losartan -Can consider starting SGLT-2 inhibitor at time of DC -Follow up with HF program as an outpatient -Will need cardiac rehab on discharge #CAD (coronary artery disease), HLD - Continue ASA and Brillinta - Continue metoprolol succinate 100 mg daily - Continue atorvastatin 80mg daily; goal LDL < 70 - Appreciate cardiology recommendations #History of ventricular arrhythmia - continue home amiodarone 200mg daily - Has ICD in place - can follow with EP as an outpatient #Elevated troponin (s/p acute OR in [place] requiring 1 stent) -On admission, troponin was 3,736. Flat troponins x 3. -Per H&P's note, Troponin when she was admitted with OR in [place] around 65,000 -EKG here without acute ischemic changes -Will monitor EKG and clinical signs of acute cardiac ischemia. #Hypertension: - BP in acceptable range since admission and maybe even slightly low - Holding home amlodipine since we have started Entresto - stopped losartan #Hyponatremia: -Has been as low as 123 in the past. 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 - Somewhat elevated to 1.6 at DC -Continue to monitor #Rheumatoid arthritis - Continue home Plaquenil - Continue GI prophylaxis with Protonix #Periodic limb movement disorder: - Continue home rotigotine patch - received 1 time dose of 0.25mg Ativan between patches due to severe symptoms on 03/07 #Hypothyroidism -TSH was elevated at 11.8 on presentation. No signs/symptoms of hypothyroidism -Most likely due to sick thyroid -Continue home Synthroid 100 mcg. -Patient recently prescribed amiodarone which can cause a elevated TSH but unlikely the cause due to recently been added. -Will need repeat TSH post-hospital discharge Code status: Conditional Code. "DNR - Discussed with patient. She is DNR, mean ing she does not want CPR or further external defibrillation. If ICD is not successful in defibrillating her, she would not want further attempts. She is willing to be intubated for 2-3 days. She reports her family is aware of her wishes. Dispo: Transfer to rehab Total Time Total Time Spent Total Time Spent (In Minutes): 60 Discharge Plan Discharge Items Patient Disposition: Transfer Inpatient Rehab Fac Reason For Visit: NAUSEA,EMESIS,RECENT OR,VT ARREST,ICD Discharge Diagnosis: As above Activity: Per Instructions section Non-emergency contact: Primary Care Provider, Testing Manager and Crocodile Farmer Call non-emergency contact if: you have any medication questions, your symptoms worsen, your pain is not controlled, your pain is worsening and your pain is unusual for you Follow-up/Referrals: Maddison Metzger MD [Primary Care Provider] - Shara Nguyen PA-C [Physician Meat Passer] - 03/16/22 10:30 am (Congestive Heart Failure Program Appointment Information Early follow up is essential to managing your heart failure. An appointment has been scheduled for you with the [facility] within 7 days of discharge. Anticipate this visit to be 30-60 minutes long. Please expect a brazing machine operator helper phone call from one of our nurses approximately 48 hours from discharge. They will also be placing an order for lab work to be completed 1-2 days prior to your heart failure follow up appointment. Please be sure to have this done so we can go over the results when you come in. Office Location The cardiology office building is located in front of the hospital at [address] Bring the following with you to your follow-up doctor appointments: Please bring your daily weight log any discharge paperwork all of your medication bottles with you to this visit. ) Diet: Heart Healthy Addtl Attending Provider Instructions: Nausea & vomiting -Vomiting is resolving and nausea improved with prn Zofran. -Most likely d/t recent traveling, new medications, and not an infectious source -Treating with GI cocktail -- Pantoprazole 40mg BID, famotidine 20mg BID, carafate - Recommend continuing above and tapering as symptoms improve -If continuing, consider discussion with gastroenterology or PCP about possible EGD #Generalized weakness #Poor appetite #Weight loss -Patient has poor appetite; nutrition consulted. - will need cardiac rehab on discharge; but in the short term, PT and OT r ecommending SNF -Case manger aware -- plan for [facility] -Patient's hemoglobin has been stable. -Patient will need colonoscopy on discharge -- recommend outpatient follow up with PCP for discussion #Mild dehydration -Patient blood pressure is a little low, cr went up to 1.6 (baseline usually around 1.3) -IV fluids held in the setting of HFrEF, Lasix held -Recommend increasing PO intake and monitor closely at rehab #HFrEF--ischemic etiology--slight fluid overload, in exacerbation. -TTE here with showed EF 35%; with akinesis of the inferolateral wall and base to mid anterolateral wall; anterior and inferior soto are hypokinetic but not well visualized -BNP was 1716 most likely 2/2 OR last week. -Given Lasix 20mg IV earlier in hospitalization-- none further given in light of above -Start spironolactone 25mg PO daily and Entresto -Continue metoprolol succinate 100mg daily -Stop losartan -Can consider starting SGLT-2 inhibitor at time of DC -Follow up with HF program as an outpatient -Will need cardiac rehab on discharge #CAD (coronary artery disease), HLD - Continue ASA and Brillinta - Continue metoprolol succinate 100 mg daily - Continue atorvastatin 80mg daily; goal LDL < 70 - Appreciate cardiology recommendations #History of ventricular arrhythmia - continue home amiodarone 200mg daily - Has ICD in place - can follow with EP as an outpatient #Elevated troponin (s/p acute OR in [place] requiring 1 stent) -On admission, troponin was 3,736. Flat troponins x 3. -Per H&P's note, Troponin when she was admitted with OR in [place] around 65,000 -EKG here without acute ischemic changes -Will monitor EKG and clinical signs of acute cardiac ischemia. #Hypertension: - BP in acceptable range since admission and maybe even slightly low - Holding home amlodipine since we have started Entresto - stopped losartan #Hyponatremia: -Has been as low as 123 in the past. 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 - Somewhat elevated to 1.6 at DC -Continue to monitor #Rheumatoid arthritis - Continue home Plaquenil - Continue GI prophylaxis with Protonix #Periodic limb movement disorder: - Continue home rotigotine patch - received 1 time dose of 0.25mg Ativan between patches due to severe symptoms on 03/07 #Hypothyroidism -TSH was elevated at 11.8 on presentation. No signs/symptoms of hypothyroidism -Most likely due to sick thyroid -Continue home Synthroid 100 mcg. -Patient recently prescribed amiodarone which can cause a elevated TSH but unlikely the cause due to recently been added. -Will need repeat TSH post-hospital discharge Code status: Conditional Code. "DNR - Discussed with patient. She is DNR, meaning she does not want CPR or further external defibrillation. If ICD is not successful in defibrillating her, she would not want further attempts. She is willing to be intubated for 2-3 days. She reports her family is aware of her wishes. Dispo: Transfer to rehab Pending Studies at Discharge: No Stand-Alone Forms: My [facility] Skilled Items Patient informed of condition?: Yes DNR: Yes (Conditional code: Only invasive airway techniques accepted) Discharge Level of Care: Acute rehab Communicable Disease: No Discharge Prognosis: Improving Lines: None Urinary Catheter: No Medications and DC Order Prescriptions: New sucralfate 100 mg/mL Suspension 1 g PO AC 30 Days Qty: 900 0RF spironolactone 25 mg Tablet 25 mg PO QAM 30 Days Qty: 30 0RF famotidine 20 mg Tablet 20 mg PO BID 30 Days Qty: 60 0RF pantoprazole 40 mg Tablet,Delayed Release (Dr/Ec) 40 mg PO BID 30 Days Qty: 60 0RF Entresto 24-26 mg Tablet 1 tab PO BID 30 Days Qty: 60 0RF Continued ascorbic acid (vitamin C) 500 mg tablet 500 mg PO DAILY Qty: 30 6RF ferrous sulfate 325 mg (65 mg iron) tablet,delayed release (DR/EC) 325 mg PO DAILY Qty: 30 6RF amlodipine 2.5 mg tablet 2.5 mg PO DAILY Qty: 90 3RF atorvastatin 80 mg tablet 80 mg PO HS Qty: 90 3RF hydroxychloroquine [Plaquenil] 200 mg tablet 200 mg PO DAILY Qty: 90 3RF tramadol 50 mg tablet 50 mg PO Q8H PRN (Reason: pain) Qty: 90 0RF Neupro 1 mg/24 hour patch 24 hour 1 mg transdermal DAILY Qty: 90 1RF diclofenac sodium 1 % gel 2 g topical QID PRN (Reason: Pain) Qty: 100 1RF acetaminophen 500 mg tablet 1,000 mg PO Q8H PRN (Reason: Pain) levothyroxine 100 mcg tablet 100 mcg PO DAILY Qty: 14 0RF cyclobenzaprine 5 mg tablet 5 mg PO BID PRN (Reason: muscle spasm) Qty: 60 1RF multivitamin Tablet 1 tab PO QDD cholecalciferol (vitamin D3) [Vitamin D3] 2,000 unit Capsule 2,000 unit PO QAM calcium carbonate [Calcium 600] 600 mg calcium (1,500 mg) tablet 600 mg PO BID Brilinta 90 mg tablet 90 mg PO BID amiodarone 200 mg tablet 200 mg PO DAILY aspirin 81 mg tablet 81 mg PO DAILY metoprolol succinate 100 mg tablet 100 mg PO DAILY Discontinued omeprazole 20 mg capsule,delayed release(DR/EC) 20 mg PO BID Qty: 180 3RF lisinopril 10 mg tablet 20 mg PO HS losartan [Cozaar] 25 mg Tablet 25 mg PO DAILY Discharge Orders: Discharge Order (Routine); Ordered 03/10/22 Ordered By: Nathaniel Orta Admission Data Admit Date/Time: 03/08/22 09:54 Attending Provider: Randall Hoskins Admit Provider: Byron Santamaria Primary Care Provider: Maddison Metzger Other Providers: Byron Santamaria ; Simone Arellano ; [facility] ; Shara Nguyen Other Interventions: Discharge Summary Assessment (RN) Last Done: 03/10/22 12:44 Supervising Physician Co-Signing Physician Notes I personally examined the patient and verified all haynes points of history and exam, discussed case, and agree with decision making with Dr Zuleta feeling a little better still early satiety and a little nausea - feels up to going to rehab. Vitals noted, in general she is awake and alert pleasant no distress. HEENT normocephalic atraumatic mucous membranes moist. Breathing unlabored no accessory muscle use good effort. no pallor or icterus no focal neuro deficits. 1.Nausea. Not an anginal equivalent. Troponins x3 were flat. Seems to be multifactorialprobably gastric in etiology given the nausea, early satiety, food aversionall leading to mild malnutrition with 10 pounds of weight lossfor now, aggressive acid suppression and supportive care, low threshold for EGD if she does not improve, or if medications are not able to be weaned. 2.Elevated troponin in the setting of known CAD and recent cath. Serial troponins have been flat 3.Chest pain. Secondary to recent ICD placement. No signs of infection. 4.CAD, recent OR. Recently had a stent placed in [place]. Continue ASA and Brillinta x 1 year. Continue atorvastatin 80mg, goal LDL < 70. 5. Acute on chronic systolic CHF initiallynow more compensated to what appears to be chronic systolic CHF.HFrEF. Ischemic etiology. EF 35%. Normal LV side with reduced EF. Akinesis of the inferolateral wall and base to mid anterolateral wall. Anterior and inferior soto are hypokinetic but not well visualized. Started Entresto. Continue med management/afterload reduction 6.History of ventricular arrhythmia. Has ICD placed. Continue amiodarone 200mg daily. Ok to remove sling to avoid frozen shoulder and frozen elbow. Can follow up with EP for device monitoring. 7.HTN. Meds as per HFrEF. Blood pressure quite tightbut no symptoms. 8. Weight loss/decreased appetite. With mild malnutrition/weight losssee above, most likely would tie together with nausea. Aggressive acid suppression, low threshold for EGD (probably if doesn't show significant improvement in ~1- 2wks along with ability to wean back on acid suppression). With fecal occult blood positiveshe will need a colonoscopy evaluation in the near future regardless. 9.Normocytic Anemia. New. Hgb 9.4 (previous baseline 12-13). B12 and folate are appropriate. FOBT positive. GI evaluation as outpatient 10.Hyponatremia. Fairly mild. Follow periodically 11.Elevted AST and AlkP. Normalized. 12.Hypothyroid. TSH likely sick euthyroidoutpatient follow-up.. 13.CKD, Stage 3b. At baseline. 14.RA. Continue home hydroxychloroquine. 15.Periodic limb movement disorder. Continue Neupro patch. Dispo: [facility]. Resident Activity Tracking Resident Involvement: Resident Care Provided Care Provided: Adult [facility] Medicine
== END 2022-03-10 14:00 | DRG 391 ==
LOC: ED 08:55 → 2N 08:55 → SUATTDRO 12:24 → 2N 15:57 → SUATTDRO 03-08 09:54

== ENCOUNTER 2022-03-19 11:02 | Inpatient (IN) ==
[2022-03-19 11:26] LABS: Basophils # (auto) 0.02 K/uL (0-0.2); Basophils % (auto) 0.2 %; Eosinophils # (auto) 0.01 K/uL (0-0.50); Eosinophils % (auto) 0.1 %; Hematocrit (blood only) 28.2 % (34.1-44.9); Hemoglobin 9.2 g/dl (12.0-16.0); Immature Granulocytes # (auto) 0.13 K/uL (0.00-0.02); Immature Granulocytes % (auto) 1.5 %; Lymphocytes # (auto) 1.15 K/uL (1.2-3.4); Mean Corpuscular Hemoglobin 30.1 pg (25.0-34.0); Mean Corpuscular Hgb Conc 32.6 g/dL (32.0-36.0); Mean Corpuscular Volume 92.2 fL (80.0-100.0); Mean Platelet Volume 9.2 fL (9.4-12.3); Monocytes # (auto) 1.05 K/uL (0.24-0.82); Monocytes % (auto) 11.9 %; Neutrophils # (auto) 6.46 K/uL (1.4-6.5); Neutrophils % (auto) 73.3 %; Platelet Count 283 K/uL (130-400); RDW Coefficient of Variation 14.1 % (11.5-14.5); RDW Standard Deviation 47.8 fL (36.4-46.3); Red Blood Count 3.06 M/uL (3.93-5.22); White Blood Count 8.82 K/ul (4.8-10.8)
[2022-03-19] MEDS ORDERED: SODIUM CHLORIDE 0.9% 1000ML 500 ML IV ONE (11:45)
--- NOTE | 2022-03-19 11:46 | Emergency Department Note ---
History of Present Illness General Chief complaint: Abnormal Labs/Diagnostic Testing Stated complaint: ABNORMAL LABS, WEAKNESS, NAUSEA Time Seen by Provider: 03/19/22 11:31 History of Present Illness Maximum Pain Intensity: 5 81-year-old female presents to the ED with a chief complaint of ongoing dry heaves for the past couple of days. She had some electrolyte abnormalities noted at [facility] today where she currently resides since being discharged from the hospital over a week and a half ago. She also reports some periodic sudden shortness of breath. The patient reports some epigastric discomfort which she feels is related to her dry heaves. She has also had some decreased p.o. intake for the past day or 2. The patient reportedly had hyponatremia, hyperkalemia as well as a increase in her creatinine on this morning's outpatient blood work. No additional complaints at this time. No diarrhea. EMS provided IV Zofran in route. The patient did report that she was having some issues with nausea and vomiting even prior to her hospitalization in [place] 3 weeks ago when she had her acute ND. Home Medications Medication Instructions Recorded Confirmed Type cholecalciferol (vitamin D3) 50 2,000 unit PO QAM 05/05/18 03/16/22 History mcg (2,000 unit) capsule (Vitamin D3) multivitamin 1 tab PO QDD 05/05/18 03/16/22 History calcium carbonate 600 mg calcium 600 mg PO BID 06/19/19 03/16/22 History (1,500 mg) tablet (Calcium) ascorbic acid (vitamin C) 500 mg 500 mg PO DAILY #30 tabs 08/21/20 03/16/22 Rx tablet ferrous sulfate 325 mg (65 mg 325 mg PO DAILY #30 tabs 08/21/20 03/16/22 Rx iron) tablet,delayed release amlodipine 2.5 mg tablet 2.5 mg PO DAILY #90 tabs 04/24/21 03/16/22 Rx acetaminophen 500 mg tablet 1,000 mg PO Q8H PRN Pain 06/30/21 03/16/22 History cyclobenzaprine 5 mg tablet 5 mg PO BID PRN muscle spasm #60 11/02/21 03/16/22 Rx tabs levothyroxine 100 mcg tablet 100 mcg PO DAILY #14 tabs 11/02/21 03/16/22 Rx atorvastatin 80 mg tablet 80 mg PO HS #90 tabs 12/14/21 03/16/22 Rx hydroxychloroquine 200 mg tablet 200 mg PO DAILY #90 tabs 12/29/21 03/16/22 Rx (Plaquenil) tramadol 50 mg tablet 50 mg PO Q8H PRN pain #90 tabs 02/01/22 03/16/22 Rx rotigotine 1 mg/24 hour 1 mg transdermal DAILY #90 ea 02/02/22 03/16/22 Rx transdermal 24 hour patch (Neupro) diclofenac sodium 1 % topical gel 2 g topical QID PRN Pain #100 grams 02/03/22 03/16/22 Rx Brilinta 90 mg PO BID 03/06/22 03/16/22 History amiodarone 200 mg PO DAILY 03/06/22 03/16/22 History aspirin 81 mg PO DAILY 03/06/22 03/16/22 History metoprolol succinate 100 mg PO DAILY 03/06/22 03/16/22 History famotidine 20 mg tablet 20 mg PO BID 30 days #60 tabs 03/10/22 03/16/22 Rx pantoprazole 40 mg tablet,delayed 40 mg PO BID 30 days #60 tabs 03/10/22 03/16/22 Rx release sacubitril 24 mg-valsartan 26 mg 1 tab PO BID 30 days #60 tabs 03/10/22 03/16/22 Rx tablet (Entresto) spironolactone 25 mg tablet 25 mg PO QAM 30 days #30 tabs 03/10/22 03/16/22 Rx sucralfate 100 mg/mL oral 1 g (10 mL) PO AC 30 days #900 mL 03/10/22 03/16/22 Rx suspension Allergies Allergy/AdvReac Type Severity Reaction Status Date / Time No Known Drug Allergies Allergy Unknown Verified 03/16/22 10:43 Past Med/Surg History Medical History Acid reflux Acute encephalopathy Acute hyponatremia Acute ND Acute UTI CAD (coronary artery disease) ND in [place] in 02/2022. 1 stent placed (believe LCx, but not sure). 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 Dysuria Hiatal hernia History of Hodgkin's lymphoma S/P RADIATION/CHEMO (2000) History of pelvic fracture Hyperlipidemia Hypertension Hypothyroidism Ischemic cardiomyopathy Mixed stress and urge urinary incontinence Restless leg syndrome Rheumatoid arthritis ON PLAQUENIL AND CHRONIC PREDNISONE 7.5MG DAILY Sciatica Scoliosis Stage 3b chronic kidney disease Ventricular tachycardia Surgical History H/O foot surgery 2ND RT TOE REMOVED History of bilateral cataract extraction RIGHT CATARACT EXTRACTION WITH IOL= 04/05/18= MAC SEDATION AT [facility] History of colonoscopy History of gynecologic surgery ANTERIOR AND POSTERIOR REPAIR - colporrhaphy (for pelvic relaxation) History of removal of cyst HEAD (BENIGN) History of tonsillectomy History of tooth extraction History of total knee replacement RT History of urologic surgery [place] [facility] [place] coronary artery stent placement S/P ICD (internal cardiac defibrillator) procedure S/P vaginal hysterectomy Family History Mother , age 80 Cardiac disorder Family history of lung cancer Brother Diabetes Family history of lung cancer Family history of diabetes mellitus Daughter Breast cancer Father , age 57 Cardiac disorder Grandmother Diabetes Aunt Ovarian cancer paternal aunt Grandmother (Paternal) Family history of diabetes mellitus Other Cancer Heart disease No family history of adverse response to anesthesia No family history of bleeding disorder Denies family history of Colon cancer Colorectal cancer Social History Smoking Status: Never smoker Tobacco Type: Cigarettes Cigarettes Per Day: QUIT + 30 YEARS AGO; Second Hand Exposure: No; Hx Alcohol Use: No Hx Substance Use: No Preferred Language: [place] Verde[place] Communication Ability: Effective Visual Impairment: No Limitations Hearing Ability: Use of Hearing Aid Hot Car Charger Required: No Beliefs That Will Affect Care: None marital status: / Current Living Situation: Alone Current Living Situation Comment: home alone w/ daughter close & friends close. 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 [employer] Feels Safe at Home: Yes Childhood Exposure to Second-Hand Smoke: Yes (parent smoked) Dental Care, Regularly: Yes Sunscreen Use: Yes (occasionally) Assistive Devices: Brace/Splint/Immobilizer Review of Systems A total of 10 systems reviewed and were otherwise negative Physical Exam Vital Signs Vital Signs - 24 hr 03/19/22 11:19 03/19/22 11:12 03/19/22 11:12 Temperature 36.4 C L Temperature Source Oral Pulse Rate 81 Pulse Rate [Left Radial] 81 Pulse Rhythm Pulse Rhythm [Left Radial] Regular Respiratory Rate 20 20 Respiratory Effort / Characteristics Non-Labored Non-Labored Respiratory Depth Normal Normal Respiratory Pattern Regular Regular Blood Pressure 109/86 Blood Pressure [Left Arm] 109/86 Blood Pressure Mean 93 Blood Pressure Mean [Left Arm] 93 Blood Pressure Position Lying Blood Pressure Position [Left Arm] Lying Pulse Oximetry 98 98 Oxygen Delivery Method Room Air Room Air Room Air Oxygen Flow Rate Sepsis Recent Fever Within 48 Hours No Sepsis New/Unexplained Change in Mental Status No Sepsis Action Taken by Nursing No Action Required 03/19/22 11:12 03/19/22 11:17 03/19/22 11:18 Temperature Temperature Source Pulse Rate 81 Pulse Rate [Left Radial] 73 Pulse Rhythm Regular Pulse Rhythm [Left Radial] Regular Respiratory Rate 20 20 Respiratory Effort / Characteristics Non-Labored Respiratory Depth Normal Respiratory Pattern Regular Blood Pressure Blood Pressure [Left Arm] 109/86 Blood Pressure Mean Blood Pressure Mean [Left Arm] 93 Blood Pressure Position Blood Pressure Position [Left Arm] Lying Pulse Oximetry 98 94 Oxygen Delivery Method Room Air Room Air Room Air Oxygen Flow Rate 94 Sepsis Recent Fever Within 48 Hours Sepsis New/Unexplained Change in Mental Status Sepsis Action Taken by Nursing 03/19/22 11:18 Temperature Temperature Source Pulse Rate 75 Pulse Rate [Left Radial] Pulse Rhythm Regular Pulse Rhythm [Left Radial] Respiratory Rate 20 Respiratory Effort / Characteristics Respiratory Depth Respiratory Pattern Blood Pressure Blood Pressure [Left Arm] Blood Pressure Mean Blood Pressure Mean [Left Arm] Blood Pressure Position Blood Pressure Position [Left Arm] Pulse Oximetry 94 Oxygen Delivery Method Room Air Oxygen Flow Rate Sepsis Recent Fever Within 48 Hours Sepsis New/Unexplained Change in Mental Status Sepsis Action Taken by Nursing CONSTITUTIONAL/VITAL SIGNS: Reviewed / noted above. GENERAL: Non-toxic in appearance. INTEGUMENTARY: Warm, dry, and pale. HEAD: Normocephalic. EYES: without scleral icterus or trauma. ENT/OROPHARYNX: clear and moist. LYMPHADENOPATHY/NECK: Is supple without lymphadenopathy or meningismus. RESPIRATORY: Clear to auscultation bilaterally. No increased work of breathing. CARDIOVASCULAR: Regular rate and rhythm. GI/ABDOMEN: Soft and nontender. No organomegaly or pulsatile mass. EXTREMITIES: Warm and well perfused. BACK: No CVA tenderness. NEUROLOGICAL: Intact without focal deficits. PSYCHIATRIC: normal affect. MUSCULOSKELETAL: Normally developed with good muscle tone. TRIAGE NURSING DOCUMENTATION REVIEWED. Course Administered Medications Discontinued Medications Sodium Chloride (Nss 1000ml) 500 mls @ 999 mls/hr IV .Q31M ONE Stop: 03/19/22 12:15 Last Infusion: 03/19/22 13:00 Dose: 0 mls/hr Documented By: Admin: 03/19/22 12:03 Dose: 999 mls/hr Documented By: MIKE Medical Decision Making Medical Records Attestation: I reviewed the patient's medical records. Home Medications Current Medication List: was personally reviewed by me Laboratory Data Attestation: I reviewed the patient's lab results. Result diagrams: 03/19/22 11:13 03/19/22 11:13 Lab Results 03/19/22 03/19/22 03/19/22 Range/Units 11:13 11:13 11:13 WBC 8.82 (4.8-10.8) K/ul RBC 3.06 L (3.93-5.22) M/uL Hgb 9.2 L (12.0-16.0) g/dl Hct 28.2 L (34.1-44.9) % MCV 92.2 (80.0-100.0) fL MCH 30.1 (25.0-34.0) pg MCHC 32.6 (32.0-36.0) g/dL RDW Std Deviation 47.8 H (36.4-46.3) fL RDW Coeff of Sachin 14.1 (11.5-14.5) % Plt Count 283 (130-400) K/uL MPV 9.2 L (9.4-12.3) fL Immature Gran % (Auto) 1.5 % Neut % (Auto) 73.3 % Lymph % (Auto) 13.0 % [place] % (Auto) 11.9 % Eos % (Auto) 0.1 % Baso % (Auto) 0.2 % Neut # (Auto) 6.46 (1.4-6.5) K/uL Lymph # (Auto) 1.15 L (1.2-3.4) K/uL [place] # (Auto) 1.05 H (0.24-0.82) K/uL Eos # (Auto) 0.01 (0-0.50) K/uL Baso # (Auto) 0.02 (0-0.2) K/uL Immature Gran # (Auto) 0.13 H (0.00-0.02) K/uL PT 18.5 H (9.0-12.0) Seconds INR 1.8 H (0.9-1.1) APTT 41.6 H (21.0-31.0) Seconds PTT Ratio 1.5 Sodium 124 L (136-145) mmol/L Potassium 5.4 H (3.5-5.1) mmol/L Chloride 94 L (98-107) mmol/L Carbon Dioxide 16 L (21-32) mmol/L Anion Gap 14 H (3-11) BUN 37 H (6-23) mg/dl Creatinine 2.36 H (0.6-1.2) mg/dl Est Cr Clr Drug Dosing 14.4 ml/min Est GFR ( Amer) 22.0 ml/min Est GFR (Non-Af Amer) 19.0 ml/min BUN/Creatinine Ratio 15.7 (10-20) Glucose 68 L (70-99(Fasting)) mg/dl Calcium 8.5 (8.5-10.1) mg/dl Total Bilirubin 1.4 H (0.2-1.0) mg/dl AST 1730 H (13-39) U/L ALT 808 H (7-52) U/L Alkaline Phosphatase 216 H (34-104) U/L Troponin I High Sens 225.3 H* D (0-14) pg/ml Total Protein 6.3 (6.0-8.3) gm/dl Albumin 3.4 (3.4-5.0) gm/dl Globulin 2.9 (2.5-4.0) gm/dl Albumin/Globulin Ratio 1.2 (0.9-2) Lipase (11-82) U/L 03/19/22 Range/Units 11:13 WBC (4.8-10.8) K/ul RBC (3.93-5.22) M/uL Hgb (12.0-16.0) g/dl Hct (34.1-44.9) % MCV (80.0-100.0) fL MCH (25.0-34.0) pg MCHC (32.0-36.0) g/dL RDW Std Deviation (36.4-46.3) fL RDW Coeff of Sachin (11.5-14.5) % Plt Count (130-400) K/uL MPV (9.4-12.3) fL Immature Gran % (Auto) % Neut % (Auto) % Lymph % (Auto) % [place] % (Auto) % Eos % (Auto) % Baso % (Auto) % Neut # (Auto) (1.4-6.5) K/uL Lymph # (Auto) (1.2-3.4) K/uL [place] # (Auto) (0.24-0.82) K/uL Eos # (Auto) (0-0.50) K/uL Baso # (Auto) (0-0.2) K/uL Immature Gran # (Auto) (0.00-0.02) K/uL PT (9.0-12.0) Seconds INR (0.9-1.1) APTT (21.0-31.0) Seconds PTT Ratio Sodium (136-145) mmol/L Potassium (3.5-5.1) mmol/L Chloride (98-107) mmol/L Carbon Dioxide (21-32) mmol/L Anion Gap (3-11) BUN (6-23) mg/dl Creatinine (0.6-1.2) mg/dl Est Cr Clr Drug Dosing ml/min Est GFR ( Amer) ml/min Est GFR (Non-Af Amer) ml/min BUN/Creatinine Ratio (10-20) Glucose (70-99(Fasting)) mg/dl Calcium (8.5-10.1) mg/dl Total Bilirubin (0.2-1.0) mg/dl AST (13-39) U/L ALT (7-52) U/L Alkaline Phosphatase (34-104) U/L Troponin I High Sens (0-14) pg/ml Total Protein (6.0-8.3) gm/dl Albumin (3.4-5.0) gm/dl Globulin (2.5-4.0) gm/dl Albumin/Globulin Ratio (0.9-2) Lipase 90 H (11-82) U/L Imaging Data Radiologist's Impression: Abdomen/Pelvis CT 03/19/22 11:42 CT OF THE ABDOMEN AND PELVIS WITHOUT CONTRAST CLINICAL HISTORY: Epigastric pain, nausea and vomiting. COMPARISON STUDY: CT of the abdomen and pelvis December 06, 2007. Renal ultrasound May 05, 2018. TECHNIQUE: Axial images of the abdomen and pelvis were obtained without IV contrast. Images were reviewed in the axial, sagittal, and coronal planes. Automated exposure control was utilized for the study. A dose lowering tech nique was utilized adhering to the principles of ALARA. FINDINGS: A hiatal hernia is noted with partially intrathoracic stomach. Interstitial pulmonary edema is present. Small right and trace left pleural effusions are present. Cardiomegaly is noted. Pacer lead is partially imaged. Evaluation of the abdomen and pelvis is suboptimal on this unenhanced exam. No pneumatosis, free air or portal venous gas is present. There is trace perihepatic ascites. There is layering hyperdense material within the gallbladder. The gallbladder is not distended however there is moderate pericholecystic fluid which extends into the right upper quadrant. This fluid is adjacent to the right colon. No colonic wall thickening is identified. There is no evidence for a bowel obstruction. No biliary or pancreatic ductal dilatation is noted. There is no right hydronephrosis. Marked left renal atrophy is again noted. Soft tissue adjacent to the distal abdominal aorta, aortic bifurcation and left common iliac artery is unchanged since CT of December 05, 2017. A me senteric nodule measuring 2.3 cm contains hyperdense foci. This is unchanged since CT of December 06, 2007 and probably benign. Sigmoid diverticulosis is noted without evidence for acute diverticulitis. Soft tissue gas within the subcutaneous tissues of the lower anterior abdominal wall is likely related to injections. No acute fracture or suspicious lesion within the visualized skeletal structures. Appendix is normal. IMPRESSION: 1. Pericholecystic fluid and infiltration extending into the right upper quadrant, adjacent to the right colon. Hyperdense material within the gallbladder. Acute cholecystitis is the diagnosis of exclusion however the gallbladder is not distended. Right upper quadrant ultrasound is recommended for further evaluation. A colonic etiology is within the differential but considered less likely. No colon wall thickening. No bowel obstruction. 2. Small right and trace left pleural effusions. Mild interstitial pulmonary edema. 3. Hiatal hernia with partially intrathoracic stomach. 4. Subcutaneous gas within the anterior abdominal wall, likely related to injections. ACT 112: Negative or not required by law. Electronically signed by: Wally Nichols M.D. 03/19/2022 12:51 PM Chest X-Ray 03/19/22 11:42 XR chest 1V portable CLINICAL HISTORY: Nausea and vomiting. COMPARISON STUDY: Chest radiograph March 06, 2022. FINDINGS: Left subclavian pacer/AICD is in place. Moderate cardiomegaly is unchanged. Hiatal hernia is noted. There is pulmonary vascular congestion. Possible small bilateral pleural effusions with bibasilar opacities favor atelectasis. IMPRESSION: 1. Cardiomegaly with pulmonary vascular congestion. 2. Possible small bilateral pleural effusions with mild bibasilar opacities that favor atelectasis. ACT 112: Negative or not required by law. Electronically signed by: Wally Nichols M.D. 03/19/2022 11:59 AM ECG Data Attestation: I personally reviewed and interpreted this ECG as follows: Additional Comments: Twelve-lead EKG: Per my interpretation shows a normal sinus rhythm at a rate of 75. No ST elevation. No PVCs. Normal QTC. Right bundle branch block. MDM Narrative 81-year-old female presents [facility] with a chief complaint of abnormal labs including hyponatremia, hyperkalemia and some acute kidney injury. The patient was admitted to the hospital here on March 06 after returning from [place] having had an acute ND there. The patient was then sent to [facility]. The patient over the past few days has been having nausea and vomiting and dry heaves that have been worse than her baseline nausea and vomiting since being sent to [facility]. She has had a worsening of her BUN and creatinine today and a somewhat progressive worsening since she was admitted there. For the past 48 hours or so she has had rather incessant dry heaves. She has not been able to eat or drink much. She does not have any abdominal tenderness on my exam. CBC is unremarkable. Hemoglobin is baseline at 9.2. Tw elve-lead EKG shows a sinus rhythm with a right bundle branch block at a rate of 75 without acute ischemic changes. INR is 1.8. Does not appear to be on chronic anticoagulation. The BUN is 37 the creatinine is 2.36. This is up from her baseline it was near normal. Potassium slightly elevated 5.4. Troponin is mildly elevated to 25. This is down from around 3000 when she was admitted last time. Chest x-ray shows some cardiomegaly with some pulmonary vascular congestion. Total bilirubin is elevated at 1.4, AST is 1730, ALT is 808 and alkaline phosphatase is 216. Lipase is unremarkable. CT scan shows some pericholecystic fluid infiltration extending into the right upper quadrant. The re are some hyperdense material in the gallbladder. Acute cholecystitis is a diagnosis of exclusion however the radiologist states that the gallbladder not distended. The patient was hydrated with some IV fluids. She was seen by the hospitalist for further evaluation and care. The patient was given an empiric dose of Zosyn here. The patient was seen by medicine service for further evaluation and care. Impression & Plan Nausea & vomiting, Acute kidney injury, Acute cholecystitis, Transaminitis Discharge Plan Visit Data Chief Complaint: Abnormal Labs/Diagnostic Testing Stated Complaint: ABNORMAL LABS, WEAKNESS, NAUSEA ED Provider: Shayne Santillan Discharge Problem: Nausea & vomiting, Acute kidney injury, Acute cholecystitis, Transaminitis Patient Disposition: Being Evaluated by Hospitalist Forms Stand Alone Forms: [facility] Prescriptions Prescriptions: No Action ascorbic acid (vitamin C) 500 mg tablet 500 mg PO DAILY Qty: 30 6RF ferrous sulfate 325 mg (65 mg iron) tablet,delayed release (DR/EC) 325 mg PO DAILY Qty: 30 6RF amlodipine 2.5 mg tablet 2.5 mg PO DAILY Qty: 90 3RF atorvastatin 80 mg tablet 80 mg PO HS Qty: 90 3RF hydroxychloroquine [Plaquenil] 200 mg tablet 200 mg PO DAILY Qty: 90 3RF tramadol 50 mg tablet 50 mg PO Q8H PRN (Reason: pain) Qty: 90 0RF Neupro 1 mg/24 hour patch 24 hour 1 mg transdermal DAILY Qty: 90 1RF diclofenac sodium 1 % gel 2 g topical QID PRN (Reason: Pain) Qty: 100 1RF acetaminophen 500 mg tablet 1,000 mg PO Q8H PRN (Reason: Pain) levothyroxine 100 mcg tablet 100 mcg PO DAILY Qty: 14 0RF cyclobenzaprine 5 mg tablet 5 mg PO BID PRN (Reason: muscle spasm) Qty: 60 1RF multivitamin Tablet 1 tab PO QDD cholecalciferol (vitamin D3) [Vitamin D3] 2,000 unit Capsule 2,000 unit PO QAM calcium carbonate [Calcium 600] 600 mg calcium (1,500 mg) tablet 600 mg PO BID Brilinta 90 mg tablet 90 mg PO BID amiodarone 200 mg tablet 200 mg PO DAILY aspirin 81 mg tablet 81 mg PO DAILY metoprolol succinate 100 mg tablet 100 mg PO DAILY sucralfate 100 mg/mL Suspension 1 g PO AC 30 Days Qty: 900 0RF spironolactone 25 mg Tablet 25 mg PO QAM 30 Days Qty: 30 0RF Hold Instructions: MURRAY famotidine 20 mg Tablet 20 mg PO BID 30 Days Qty: 60 0RF pantoprazole 40 mg Tablet,Delayed Release (Dr/Ec) 40 mg PO BID 30 Days Qty: 60 0RF Entresto 24-26 mg Tablet 1 tab PO BID 30 Days Qty: 60 0RF Hold Instructions: MURRAY Referrals Referrals: Maddison Metzger MD [Primary Care Provider] -
[2022-03-19 11:51] LABS: BUN Creatinine Ratio 15.7 (10-20); Calcium 8.5 mg/dl (8.5-10.1); Creatinine Clr Calc Pharmacy 14.4 ml/min; Potassium 5.4 mmol/L (3.5-5.1)
[2022-03-19 11:53] LABS: INR 1.8 (0.9-1.1); Partial Thromboplastin Ratio 1.5; Partial Thromboplastin Time 41.6 Seconds (21.0-31.0); Prothrombin Time 18.5 Seconds (9.0-12.0)
--- NOTE | 2022-03-19 12:00 | XRay Report ---
XR chest 1V portable CLINICAL HISTORY: Nausea and vomiting. COMPARISON STUDY: Chest radiograph March 06, 2022. FINDINGS: Left subclavian pacer/AICD is in place. Moderate cardiomegaly is unchanged. Hiatal hernia i s noted. There is pulmonary vascular congestion. Possible small bilateral pleural effusions with biba silar opacities favor atelectasis. IMPRESSION: 1. Cardiomegaly with pulmonary vascular congestion. 2. Possible small bilateral pleural effusions with mild bibasilar opacities that favor atelectasis. ACT 112: Negative or not required by law. Electronically signed by: Wally Nichols M.D. 03/19/2022 11:59 AM
[2022-03-19 12:05] LABS: Albumin Globulin Ratio 1.2 (0.9-2); Albumin Level 3.4 gm/dl (3.4-5.0); Bilirubin,Total 1.4 mg/dl (0.2-1.0); Globulin 2.9 gm/dl (2.5-4.0); Total Protein 6.3 gm/dl (6.0-8.3); Troponin I High Sensitivity 225.3 pg/ml (0-14)
--- NOTE | 2022-03-19 12:49 | History & Physical Report ---
Date of Service March 19, 2022 Assessment & Plan (1) Nausea & vomiting: Plan: Shruthi is a 81-year-old female with a past medical history of V. tach with ICD, chronic systolic CHF and CAD s/p PCI, trigger finger, CKD 3B, hearing loss, periodic limb movement disorder/dyskinesia, chronic hyponatremia, already, hyperlipidemia, hypertension, hypothyroidism, Hodgkin's disease who present to the emergency department with nausea, dry heaves, and electrolyte abnormalities. Was discharged from the hospital on 03/11/2022 for nausea/vomiting with positive fecal occult blood test and with slight HFrEF exacerbation. Nausea/vomiting/transaminitis Patient reports symptoms preceded her hospitalization in [place] for [place], she had had poor appetite worsened with meals and pain in the right upper quadrant which has continued and not improved Amiodarone side effect considered, however patient symptoms seem to precede this Gallbladder eval as below, patient does have history of hiatal hernia with partial intrathoracic stomach With transaminitis Sodium 124, potassium 5.4, creatinine acutely elevated to 2.36 in the setting of minimal to poor intake and nonbilious/nonbloody emesis Patient appears volume contracted, fatigued No fever/chills/sweats Continue sucralfate, PPI, H2 Zofran as needed CT A/P: Pericholecystic fluid and infiltration extending into the right upper quadrant, adjacent to the right colon. Hyperdense material within the gallbladder. Acute cholecystitis is the diagnosis of exclusion however the gallbladder is not distended. Right upper quadrant ultrasound is recommended for further evaluation. A colonic etiology is within the differential but considered less likely. No colon wall thickening. No bowel obstruction.2. Small right and trace left pleural effusions. Mild interstitial pulmonary edema.3. Hiatal hernia with partially intrathoracic stomach.4. Subcutaneous gas within the anterior abdominal wall, likely related to injections. Ultrasound gallbladder pending Anticipate likely follow-up with MRCP versus HIDA scan may be required based on above INR is elevated to 1.8, patient does not take anticoagulants including warfarin/DOAC's. Liver panel is pending including acute hepatitis panel and mono. Liver echotexture on CT grossly normal N.p.o., maintenance fluids Patient with heart failure, but is clinically dry on assessment. CT with mild pulmonary edema. Limited repeat echo pending. Cautious IV fluids follow carefully for signs of volume overload Chronic anemia Hemoglobin 9.2, baseline appears in the nines MCV 92 B12/folate recently checked, both elevated with supplementation Iron studies: Ferritin elevated, TSAT low end normal, U IBC normal, TIBC slightly low 03/08/2022 consistent with anemia of chronic disease Trend CBC, transfusion threshold 8.0 given cardiac history - INR as noted Hyponatremia -Sodium 124, acutely decreased from baseline of approximately 131 Potassium 5.4 Creatinine 2.36 elevated from baseline of approximately 1.331.64 Suspect in the setting of volume/solute depletion with poor p.o. intake and persistent nausea/dry heaves History of heart failure with some pulmonary vascular congestioneffusion. Will admit and give antiemetics, cautious IV fluids Hypertension Amlodipine held for low normal blood pressure Toprol all, spironolactone, Entresto as otherwise noted Hypothyroidism Continue Synthroid TSH previously elevated, will recheck for free T4. TSH may be falsely elevated in the setting of acute illness Chronic CHF reduced ejection fraction, history of V. tach with ICD, PCI to circumflex while in [place] 1 month ago Entresto held for MURRAY - CXR: Cardiomegaly with pulmonary vascular congestion. Possible small bilateral pleural effusions/mild bibasilar opacities suspicious for atelectasis Spironolactone held for MURRAY Continue metoprolol Lasix deferred with MURRAY and volume depletion Continue amiodarone 200 mg daily Continue atorvastatin nightly Continue aspirin/Brilinta - Troponin high-sensitivity 225.3. Trended. Previously in the 3000 ~12 days ago. - No clinical chest pain/pressure. If patient require surgical intervention for cystitis/choledocholithiasis, will require optimization and is medically complex including DAPT within 1 month window of TN. After above initial eval, consult cardiology for optimization and commendations RA Plaquenil temporarily held DVT prophylaxis: Heparin with MURRAY CODE STATUS: DNR/DNI, leonardo at bedside Disposition: PCU while cardiac eval Diet: N.p.o. pending above (2) Mild sleep apnea: (3) Hypothyroidism: (4) Hypertension: (5) Hyperlipidemia: (6) Hypercholesterolemia: (7) Elevated troponin: (8) Chronic systolic CHF (congestive heart failure): (9) CAD (coronary artery disease): (10) Sleep related rhythmic movement disorder: (11) SNHL (sensorineural hearing loss): (12) Stage 3b chronic kidney disease: (13) Transaminitis: (14) Ventricular tachycardia: History of Present Illness Primary Care Provider: Maddison Metzger MD Shruthi is a 81-year-old female with a past medical history of V. tach with ICD, chronic systolic CHF and CAD s/p PCI, trigger finger, CKD 3B, hearing loss, periodic limb movement disorder/dyskinesia, chronic hyponatremia, already, hyperlipidemia, hypertension, hypothyroidism, Hodgkin's disease who present to the emergency department with nausea, dry heaves, and electrolyte abnormalities. Was discharged from the hospital on 03/11/2022 for nausea/vomiting with positive fecal occult blood test and with slight HFrEF exacerbation. [facility], last few days with +N/+V/+dry heaves worsening over last few days. To the point of being unable to eat/drink and progressively volume de pleted. Hyponatremia, MURRAY at [facility]. Trop 225. Chest pain free and was previously in 3000s. EKG: no acute ST segment changes/consistent with acute ischemia. Per Pt/Daughter: Had an MRI in [facility] and arrived there February 22 (1 month ago). On the started feeling nauseus. Was seen for medical care there and had a heart attack. attempted cath, called a specialist who put a stent in a 99% circumflex blockage. Defib placed on March 0209/09 and VT arrest. Released from the hospital on March 04. [place] [facility] [place] started ~- while in [place]. was at [facility] and dc to [facility] for OT/PT. Continued to have persistent nausea with poor PO intake. +SoB for a few days. Not eating well. +Addominal pain with dry heaves, denies chest pain/chest pressure. Zoan works OK IV, but cant keep the oral tabs down at [facility]. Denies light-colored stool/jesus clip. Stool. Does Dors right upper quadrant pain with food and diminished appetite which preceded her hospitalization to [place], she notes 1 to 2 weeks of poor appetite and intake beforehand. This was concurrent with some diarrhea worsened with foods, no jesus colored/light-colored stools Medical History: Reviewed Medications: Reviewed Surgical History: Reviewed Allergies: Reviewed Social History: No tobacco product use. Rare social EtoH use yearly. No MM use/RR drug use Code Status: Surrogate VESTA Greco daughter. [phone]. DNR/DNI. Allergies Allergy/AdvReac Type Severity Reaction Status Date / Time No Known Drug Allergies Allergy Unknown Verified 03/16/22 10:43 Home Medications Medication Instructions Recorded Confirmed Type cholecalciferol (vitamin D3) 50 2,000 unit PO QAM 05/05/18 03/16/22 History mcg (2,000 unit) capsule (Vitamin D3) multivitamin 1 tab PO QDD 05/05/18 03/16/22 History calcium carbonate 600 mg calcium 600 mg PO BID 06/19/19 03/16/22 History (1,500 mg) tablet (Calcium) ascorbic acid (vitamin C) 500 mg 500 mg PO DAILY #30 tabs 08/21/20 03/16/22 Rx tablet ferrous sulfate 325 mg (65 mg 325 mg PO DAILY #30 tabs 08/21/20 03/16/22 Rx iron) tablet,delayed release amlodipine 2.5 mg tablet 2.5 mg PO DAILY #90 tabs 04/24/21 03/16/22 Rx acetaminophen 500 mg tablet 1,000 mg PO Q8H PRN Pain 06/30/21 03/16/22 History cyclobenzaprine 5 mg tablet 5 mg PO BID PRN muscle spasm #60 11/02/21 03/16/22 Rx tabs levothyroxine 100 mcg tablet 100 mcg PO DAILY #14 tabs 11/02/21 03/16/22 Rx atorvastatin 80 mg tablet 80 mg PO HS #90 tabs 12/14/21 03/16/22 Rx hydroxychloroquine 200 mg tablet 200 mg PO DAILY #90 tabs 12/29/21 03/16/22 Rx (Plaquenil) tramadol 50 mg tablet 50 mg PO Q8H PRN pain #90 tabs 02/01/22 03/16/22 Rx rotigotine 1 mg/24 hour 1 mg transdermal DAILY #90 ea 02/02/22 03/16/22 Rx transdermal 24 hour patch (Neupro) diclofenac sodium 1 % topical gel 2 g topical QID PRN Pain #100 grams 02/03/22 03/16/22 Rx Brilinta 90 mg PO BID 03/06/22 03/16/22 History amiodarone 200 mg PO DAILY 03/06/22 03/16/22 History aspirin 81 mg PO DAILY 03/06/22 03/16/22 History metoprolol succinate 100 mg PO DAILY 03/06/22 03/16/22 History famotidine 20 mg tablet 20 mg PO BID 30 days #60 tabs 03/10/22 03/16/22 Rx pantoprazole 40 mg tablet,delayed 40 mg PO BID 30 days #60 tabs 03/10/22 03/16/22 Rx release sacubitril 24 mg-valsartan 26 mg 1 tab PO BID 30 days #60 tabs 03/10/22 03/16/22 Rx tablet (Entresto) spironolactone 25 mg tablet 25 mg PO QAM 30 days #30 tabs 03/10/22 03/16/22 Rx sucralfate 100 mg/mL oral 1 g (10 mL) PO AC 30 days #900 mL 03/10/22 03/16/22 Rx suspension Past Med/Surg History Medical History Acid reflux Acute encephalopathy Acute hyponatremia Acute TN Acute UTI CAD (coronary artery disease) [place] in [place] in 02/2022. 1 stent placed (believe LCx, but not sure). 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 Dysuria Hiatal hernia History of Hodgkin's lymphoma S/P RADIATION/CHEMO (2000) History of pelvic fracture Hyperlipidemia Hypertension Hypothyroidism Ischemic cardiomyopathy Mixed stress and urge urinary incontinence Restless leg syndrome Rheumatoid arthritis ON PLAQUENIL AND CHRONIC PREDNISONE 7.5MG DAILY Sciatica Scoliosis Stage 3b chronic kidney disease Ventricular tachycardia Surgical History H/O foot surgery 2ND RT TOE REMOVED History of bilateral cataract extraction RIGHT CATARACT EXTRACTION WITH IOL= 04/05/18= [facility] SEDATION AT [facility] [place] History of colonoscopy History of gynecologic surgery ANTERIOR AND POSTERIOR REPAIR - colporrhaphy (for pelvic relaxation) History of removal of cyst HEAD (BENIGN) History of tonsillectomy History of tooth extraction History of total knee replacement RT History of urologic surgery URETEROLYSIS- 04/1995 [facility] S/P coronary artery stent placement S/P ICD (internal cardiac defibrillator) procedure S/P vaginal hysterectomy Family History Mother , age 80 Cardiac disorder Family history of lung cancer Brother Diabetes Family history of lung cancer Family history of diabetes mellitus Daughter Breast cancer Father , age 57 Cardiac disorder Grandmother Diabetes Aunt Ovarian cancer paternal aunt Grandmother (Paternal) Family history of diabetes mellitus Other Cancer Heart disease No family history of adverse response to anesthesia No family history of bleeding disorder Denies family history of Colon cancer Colorectal cancer Social History Smoking Status: Never smoker Tobacco Type: Cigarettes Cigarettes Per Day: QUIT + 30 YEARS AGO; Second Hand Exposure: No; Hx Alcohol Use: No Hx Substance Use: No Preferred Language: Vietnamese Communication Ability: Effective Visual Impairment: No Limitations Hearing Ability: Use of Hearing Aid Stoneworking Belt Sander Required: No Beliefs That Will Affect Care: None marital status: / Current Living Situation: Alone Current Living Situation Comment: home alone w/ daughter close & friends close. 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 NAD. Cooperative. HEENT: Atraumatic, normocephalic. Vision/hearing grossly intact. Pupils equal and reactive to light. Pulm: CTAB A&P. -wheezes, -rales, -rhonchi. Symmetrical chest rise. No increase in work of breathing. No respiratory distress. Cardiac: RRR, soft systolic murmur. Radial pulses intact and symmetrical. No JVD appreciated. Well-healing ICD site at left chest, no overlying erythema/discharge/dehiscence. Abdominal: Focally tender in right upper quadrant with some epigastric tenderness Extremities: Warm, dry. No pitting edema. PT pulses intact bilaterally. Radial pulse intact bilaterally. Ankle dorsiflexion/plantarflexion, work and family life consultant strength 5/5, although with fatigue throughout testing Results & Data Results & Data ([facility]) Vital Signs (Past 12 Hours) Vital Signs Temp Pulse Pulse Resp BP BP Pulse Ox 03/19/22 11:12 81 20 98 03/19/22 11:12 03/19/22 11:12 81 20 109/86 98 03/19/22 11:19 36.4 C L 81 20 109/86 98 O2 Del Method 03/19/22 11:12 Room Air 03/19/22 11:12 Room Air 03/19/22 11:12 Room Air 03/19/22 11:19 Room Air PG Care Time/CCT Total # of Minutes Spent Total Time Spent with Patient: Total time spent is greater than 50% in coordination of care (as documented) at patient's floor/unit and/or counseling patient: Coding Level of Care Code 52667 Initial Inpt Care Lvl 3 Diagnoses Nausea & vomiting R11.2 Mild sleep apnea G47.30 Hypothyroidism E03.9 Hypothyroidism type: acquired Hypertension I10 Hypertension type: primary hypertension Hyperlipidemia E78.5 Hypercholesterolemia E78.00 Elevated troponin R77.8 Chronic systolic CHF (congestive heart failure) I50.22 CAD (coronary artery disease) I25.10 Sleep related rhythmic movement disorder G47.69 SNHL (sensorineural hearing loss) H90.5 Stage 3b chronic kidney disease N18.32 Transaminitis R74.01 Ventricular tachycardia I47.2 (1) Hypothyroidism Hypothyroidism type: acquired Qualified Code(s): E03.9 - Hypothyroidism, unspecified (2) Hypertension Hypertension type: primary hypertension Qualified Code(s): I10 - Essential (primary) hypertension
--- NOTE | 2022-03-19 12:53 | CT Scan Report ---
CT OF THE ABDOMEN AND PELVIS WITHOUT CONTRAST CLINICAL HISTORY: Epigastric pain, nausea and vomiting. COMPARISON STUDY: CT of the abdomen and pelvis December 06, 2007. Renal ultrasound May 05, 2018. TECHNIQUE: Axial images of the abdomen and pelvis were obtained without IV contrast. Images were revi ewed in the axial, sagittal, and coronal planes. Automated exposure control was utilized for the maria d dy. A dose lowering technique was utilized adhering to the principles of ALARA. FINDINGS: A hiatal hernia is noted with partially intrathoracic stomach. Interstitial pulmonary edema is present. Small right and trace left pleural effusions are present. Cardiomegaly is noted. Pacer l ead is partially imaged. Evaluation of the abdomen and pelvis is suboptimal on this unenhanced exam. No pneumatosis, free air or portal venous gas is present. There is trace perihepatic ascites. There i s layering hyperdense material within the gallbladder. The gallbladder is not distended however there is moderate pericholecystic fluid which extends into the right upper quadrant. This fluid is adjacen t to the right colon. No colonic wall thickening is identified. There is no evidence for a bowel obst ruction. No biliary or pancreatic ductal dilatation is noted. There is no right hydronephrosis. Marke d left renal atrophy is again noted. Soft tissue adjacent to the distal abdominal aorta, aortic bifur cation and left common iliac artery is unchanged since CT of December 05, 2017. A mesenteric nodule davonte uring 2.3 cm contains hyperdense foci. This is unchanged since CT of December 06, 2007 and probably dennis gn. Sigmoid diverticulosis is noted without evidence for acute diverticulitis. Soft tissue gas within the subcutaneous tissues of the lower anterior abdominal wall is likely related to injections. No ac ewiiaapaayp fracture or suspicious lesion within the visualized skeletal structures. Appendix is normal. IMPRESSION: 1. Pericholecystic fluid and infiltration extending into the right upper quadrant, adjacent to the ri ght colon. Hyperdense material within the gallbladder. Acute cholecystitis is the diagnosis of exclu gonzalez however the gallbladder is not distended. Right upper quadrant ultrasound is recommended for fur ther evaluation. A colonic etiology is within the differential but considered less likely. No colon w all thickening. No bowel obstruction. 2. Small right and trace left pleural effusions. Mild interstitial pulmonary edema. 3. Hiatal hernia with partially intrathoracic stomach. 4. Subcutaneous gas within the anterior abdominal wall, likely related to injections. ACT 112: Negative or not required by law. Electronically signed by: Wally Nichols M.D. 03/19/2022 12:51 PM
[2022-03-19] MEDS ORDERED: PIPERACILLIN/TAZOBACTAM 4.5 GM/120 ML BAG IV ONE (13:15)
[2022-03-19] MEDS ORDERED: ONDANSETRON INJ 2 MG/ML 2 ML VIAL IV PRN (13:19)
[2022-03-19] MEDS: SODIUM CHLORIDE 0.9% 500 ML IV SCH ×3 (13:32→20:37)
--- NOTE | 2022-03-19 15:25 | Ultrasound Report ---
US gallbladder CLINICAL HISTORY: ?sho/choledoco TECHNIQUE: Multiple real-time sonographic images of the right upper quadrant were obtained. Comparison: None available at the time of this dictation. FINDINGS: The liver is diffusely homogenous with normal contour and echogenicity. No focal mass lesions are see n. No intrahepatic ductal dilatation is seen. No stones are seen. The gallbladder wall appears th ickened measuring up to 5 mm in diameter. A sonographic Guido's sign was elicited by the painter rough . The common duct measures 0.55 cm in diameter at the level of the hepatic artery. The visualized portions of the pancreas appear normal. The right kidney shows normal echogenicity, cortical thickness and renal contour. The right kidney sh ows no evidence of hydronephrosis or mass. Trace fat stranding is seen without vandana fluid. IMPRESSION: Thickened gallbladder wall and positive sonographic Guido's sign compatible with acute cholecystitis , possibly acalculous cholecystitis. ACT 112: Negative or not required by law. Electronically signed by: Ray Farooq M.D. 03/19/2022 3:24 PM
[2022-03-19] MEDS ORDERED: MoRPHine SULFATE 2 MG/ML CARP ONE (15:28)
[2022-03-19] MEDS ORDERED: MoRPHine SULFATE 2 MG/ML CARP IV STA (15:34)
[2022-03-19] MEDS ORDERED: NITROGLYCERIN SL 0.4 MG/TAB TAB SL STA (15:34)
[2022-03-19] MEDS ORDERED: NITROGLYCERIN 2% OINTMENT 30GM TUBE ONE (16:26)
--- NOTE | 2022-03-19 16:58 | Cardiology Consultation ---
Date of Consultation March 19, 2022 Assessment & Plan (1) CAD (coronary artery disease): (2) S/P coronary artery stent placement: (3) Ischemic cardiomyopathy: (4) Chronic systolic CHF (congestive heart failure): (5) S/P ICD (internal cardiac defibrillator) procedure: (6) Ventricular tachycardia: (7) Acute cholecystitis: (8) Nausea & vomiting: (9) Chest pain: (10) Elevated transaminase level: (11) Elevated troponin: (12) Hyperkalemia: (13) [id number] kidney injury: Plan ASSESSMENT/PLAN: 1. CAD s/p Cx PCI: Had an episode of chest discomfort although she believes it to be different than her CA. Recommend cycling troponin following this episode of chest discomfort. Preliminary echo review demonstrated similar LV systolic function compared to 03/06/2022 echo with formal review to follow. Given recent STEMI and PCI, would recommend continuation of aspirin 81 mg daily and second anti-platelet therapy, currently on Brilinta. Would hold statin therapy given significantly elevated transaminase levels. Continue metoprolol. 2. Ischemic cardiomyopathy: Continue beta-estela. Entresto and spironolactone have been held as an outpatient due to concern for hypovolemia and abnormal renal function. Now hyperkalemic. Would not resume those medications at this time. 3. Chronic heart failure with reduced EF: She is not hypervolemic and if anything, hypovolemic. She has received IV fluids as per the hospitalist service. Entresto and spironolactone have been held as an outpatient due to hypovolemia in the setting of reduced oral intake and nausea and vomiting. 4. Ventricular tachycardia s/p ICD: No further events known. Recommend discontinuation of amiodarone for now given significantly elevated transaminase levels. Continue beta-estela. 5. Chest pain: Suspicious for cardiac etiology however if her circumflex stent would have thrombosed, would expect ST elevations, which are not present. Troponin also trending downward. Recommend continue trending of her troponin level following this episode of chest pain. No obvious new wall motion abnormalities on preliminary review of today's echo. Formal review of the echo is pending. Fortunately, her pain has subsided with medical therapy. 6. Elevated transaminase level: Would hold amiodarone and statin therapy. Further formal workup is pending with hospitalist service. 7. Elevated troponin: Troponin has been trending downward since her last hospitalization. Read trend troponins given chest pain today. 8. Hyperkalemia: Repeat labs are pending with hospitalist service. 9. Acute on chronic kidney injury: As per hospitalist service. She is likely hypovolemic given poor oral intake and acutely ill. 10. Nausea/vomiting: This has been present since before her myocardial infarction. There is concern for acute cholecystitis on imaging. She has been seen by Dr. Edmondson with surgery. He has recommended transfer to a tertiary care center for percutaneous cholecystostomy tube. Given her recent cardiac events, there is elevated cardiac risk for procedures. 11. Disposition: Complex medical issues. Patient care discussed with Dr. Edmondson of surgery and also Dr. Moulton of the primary hospitalist service. If she remains hospitalized here, Dr. Posey will be covering. Thank you for allowing me to participate in the care of your patient. Please call for any other questions or concerns. Sincerely, Sarkis Arellano M.D. History of Present Illness Reason for Consultation: High risk, chest pain, pending echo, positive troponin Requesting Physician: Dr. Moulton Attending Physician: Dr. Moulton History of Present Illness Mrs. Brannon is a very pleasant 81-year-old female with history significant for CAD s/p acute CA and PCI (in [place] on 02/25/2022), ventricular arrhythmia with emergent cardioversion, ICD placement, hypertension, CKD with nonfunctioning left kidney, chronic hyponatremia, dyslipidemia, and rheumatoid arthritis. Cardiac history: While in [place] for a conference, she developed substernal chest pressure with radiation to the left jaw on 02/25/2022 and took a taxi to a local hospital. She was found to have STEMI and was transferred emergently by ambulance to a larger facility. Leading up to her chest discomfort, she had been experiencing nausea. According to the H&P, her high sensitivity to troponin at the time of presentation was 65,478. When at the larger facility, she was quickly taken to the collaborating supervising physician and underwent circumflex PCI x1. Later during her hospital stay, she developed recurrent chest discomfort and underwent emergent cardioversion for presumed ventricular arrhythmia. She underwent ICD placement and was discharged on 03/04/2022 on amiodarone and returned home on 03/05/2022. She has had the following studies/procedures: 1. Cardiac catheterization 02/25/2022 [facility]: In setting of STEMI. Atherothrombotic occlusion of the circumflex. Underwent PCI with 3.5 x 15 mm Xience [place]; post dilated to 3.75 mm. 2. Echo 03/01/2022 [facility]: Moderately reduced LV systolic function. EF 35-40%. Severe hypokinesis lateral and inferolateral wall from base to mid segments. Mild left atrial dilation. Mild to moderate MR. 3. Single-chamber ICD 03/02/2022 [facility]ajal: Bee 4. Echo 03/06/2022 [facility]: Normal LV size. EF 35%. Akinesis of the inferolateral wall and base to mid anterolateral wall. Anterior and inferior soto appear hypokinetic but were not well visualized. Moderate left atrial dilation. No significant valvular abnormalities. Normal RVSP. She presented to the emergency department today from [facility]. She continues to have nausea and dry heaving and sometimes will vomit her pills. She has decreased oral intake because of her symptoms. Her nausea and dry heaving have been present since before her CA. She also has noted epigastric discomfort. In the emergency department today, she was noted to have acute on chronic renal insufficiency, mild hyperkalemia, worsening hyponatremia, and significantly elevated transaminase levels. She underwent imaging including a gallbladder ultrasound which demonstrated a thickened gallbladder wall and positive sonographic Guido sign compatible with acute cholecystitis. While here, she developed substernal chest discomfort described as a pressure sensation. She states it is different than her prior myocardial infarction however. She denies shortness of breath, syncope, near-syncope, palpitations, edema, melena, hematochezia, hematuria, or ICD shock. She does not feel well. The substernal chest discomfort improved following nitroglycerin and morphine. Her abdominal pain also significantly improved. She reports mild epigastric pain. She was last seen in the Heart failure program on 03/16/2022 and appeared hypovolemic at that time per documentation. She had lost 10 lb and reported loose stools and poor oral intake. Entresto and spironolactone had been held prior to that appointment and she actually had received IV fluids with a prior Review of systems:As above. Review of systems otherwise negative/unremarkable. Family history:Her mother and father had cardiac issues. Social history:She quit smoking in 1984. Occasional alcohol. She is a . Four children. Grandchildren. Her daughter, Jess, was present at the bedside. Allergies Allergy/AdvReac Type Severity Reaction Status Date / Time No Known Drug Allergies Allergy Unknown Verified 03/19/22 16:16 Home Medications Medication Instructions Recorded Confirmed Type Magnesium Hydroxide 8% Susp 30 ml PO DAILY 03/19/22 History Sucralfate Susp 1gm/10ml 1 g PO AC 03/19/22 History acetaminophen 325 mg tablet 650 mg PO .Q4UD 03/19/22 03/19/22 History (Tylenol) amiodarone 200 mg tablet 200 mg PO DAILY 03/19/22 03/19/22 History ascorbic acid (vitamin C) 500 mg 500 mg PO DAILY 03/19/22 03/19/22 History tablet (Vitamin C) aspirin 81 mg chewable tablet 81 mg PO DAILY 03/19/22 03/19/22 History atorvastatin 80 mg tablet 80 mg PO DAILY 03/19/22 03/19/22 History bisacodyl 10 mg rectal suppository 10 mg IN .DAILY UD 03/19/22 03/19/22 History calcium carbonate 500 mg calcium 500 mg PO BID 03/19/22 03/19/22 History (1,250 mg) tablet cholecalciferol (vitamin D3) 50 50 mcg PO DAILY 03/19/22 03/19/22 History mcg (2,000 unit) capsule (Vitamin D3) cyclobenzaprine 5 mg tablet 5 mg PO BID PRN Muscle Spasm 03/19/22 03/19/22 His tory diclofenac sodium 1 % topical gel 2 g topical QID PRN Pain 03/19/22 03/19/22 History docusate sodium 100 mg capsule 100 mg PO BID 03/19/22 03/19/22 History famotidine 20 mg tablet 20 mg PO BID 03/19/22 03/19/22 History ferrous sulfate 325 mg (65 mg 325 mg PO DAILY 03/19/22 03/19/22 History iron) tablet (iron) heparin (porcine) 5,000 unit/mL 5,000 unit subcut Q12H 03/19/22 03/19/22 History injection syringe hydroxychloroquine 200 mg tablet 200 mg PO DAILY 03/19/22 03/19/22 History levothyroxine 100 mcg tablet 100 mcg PO DAILY 03/19/22 03/19/22 History metoprolol succinate 100 mg 100 mg PO DAILY 03/19/22 03/19/22 History tablet,extended release 24 hr multivitamin 1 tab PO DAILY 03/19/22 03/19/22 History ondansetron 4 mg disintegrating 4 mg PO Q6H PRN Nausea 03/19/22 03/19/22 History tablet pantoprazole 40 mg tablet,delayed 40 mg PO BID 03/19/22 03/19/22 History release polyethylene glycol 3350 17 gram 17 g PO DAILY 03/19/22 03/19/22 History oral powder packet (Miralax) prednisone 5 mg tablet 5 mg PO DAILY 03/19/22 03/19/22 History rotigotine 1 mg/24 hour 1 mg transdermal HS 03/19/22 03/19/22 History transdermal 24 hour patch sacubitril 24 mg-valsartan 26 mg 1 tab PO Q12 03/19/22 03/19/22 History tablet senna-docusate sodium tablet 1 tab PO .Q LUNCH 03/19/22 03/19/22 History spironolactone 25 mg tablet 25 mg PO DAILY 03/19/22 03/19/22 History ticagrelor 90 mg tablet (Brilinta) 90 mg PO Q12 03/19/22 03/19/22 History tramadol 50 mg tablet 50 mg PO Q8H PRN Pain 03/19/22 03/19/22 History Patient History Medical History Acid reflux Acute encephalopathy Acute hyponatremia Acute CA Acute UTI CAD (coronary artery disease) CA in [place] in 02/2022. 1 stent placed (believe LCx, but not sure). 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 Dysuria Hiatal hernia History of Hodgkin's lymphoma S/P RADIATION/CHEMO (2000) History of pelvic fracture Hyperlipidemia Hypertension Hypothyroidism Ischemic cardiomyopathy Mixed stress and urge urinary incontinence Restless leg syndrome Rheumatoid arthritis ON PLAQUENIL AND CHRONIC PREDNISONE 7.5MG DAILY Sciatica Scoliosis Stage 3b chronic kidney disease Ventricular tachycardia Surgical History H/O foot surgery 2ND RT TOE REMOVED History of bilateral cataract extraction RIGHT CATARACT EXTRACTION WITH IOL= 04/05/18= [facility] SEDATION AT [facility] History of colonoscopy History of gynecologic surgery ANTERIOR AND POSTERIOR REPAIR - colporrhaphy (for pelvic relaxation) History of removal of cyst HEAD (BENIGN) History of tonsillectomy History of tooth extraction History of total knee replacement RT History of [place]rologic [place] [facility] [place] coronary artery stent placement S/P ICD (internal cardiac defibrillator) procedure S/P vaginal hysterectomy Family History Mother , age 80 Cardiac disorder Family history of lung cancer Brother Diabetes Family history of lung cancer Family history of diabetes mellitus Daughter Breast cancer Father , age 57 Cardiac disorder Grandmother Diabetes Aunt Ovarian cancer paternal aunt Grandmother (Paternal) Family history of diabetes mellitus Other Cancer Heart disease No family history of adverse response to anesthesia No family history of bleeding disorder Denies family history of Colon cancer Colorectal cancer Social History Smoking Status: Never smoker Tobacco Type: Cigarettes Cigarettes Per Day: QUIT + 30 YEARS AGO; Second Hand Exposure: No; Hx Alcohol Use: No Hx Substance Use: No Preferred Language: Uzbek Communication Ability: Effective Visual Impairment: No Limitations Hearing Ability: Use of Hearing Aid Forestry Worker Required: No Beliefs That Will Affect Care: None marital status: / Current Living Situation: Alone Current Living Situation Comment: home alone w/ daughter close & friends close. 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 Alert. HEENT: Anicteric sclera. Neck: No appreciable JVD. Normal carotid upstrokes bilaterally. Cardiac: PMI was nondisplaced. No ventricular heave. Regular. Normal S1-S2. 1/6 systolic murmur. No rubs or gallops. Pulmonary: Clear to auscultation bilaterally without wheezes, rales, or rhonchi. Abdomen: Soft, nondistended, with hypoactive bowel sounds. No bruits noted. Mild tenderness in the epigastric area. Extremities: 2+ radial pulses bilaterally. 2+ posterior tibialis pulses bilaterally. No edema or cyanosis. Left chest: ICD site without erythema or discharge. Results & Data ([facility]) Vital Signs (Past 12 Hours) Vital Signs Temp Pulse Pulse Resp BP BP Pulse Ox 03/19/22 15:17 68 20 134/74 94 03/19/22 11:18 75 20 94 03/19/22 11:18 03/19/22 11:17 73 20 109/86 94 03/19/22 11:12 81 20 98 03/19/22 11:12 03/19/22 11:12 81 20 109/86 98 03/19/22 11:19 36.4 C L 81 20 109/86 98 O2 Del Method O2 Flow Rate 03/19/22 15:17 03/19/22 11:18 Room Air 03/19/22 11:18 Room Air 94 03/19/22 11:17 Room Air 03/19/22 11:12 Room Air 03/19/22 11:12 Room Air 03/19/22 11:12 Room Air 03/19/22 11:19 Room Air Laboratory Results Laboratory Results - last 24 hr 03/19/22 03/19/22 03/19/22 11:13 11:13 11:13 WBC 8.82 RBC 3.06 L Hgb 9.2 L Hct 28.2 L MCV 92.2 MCH 30.1 MCHC 32.6 RDW Std Deviation 47.8 H RDW Coeff of Sachin 14.1 Plt Count 283 MPV 9.2 L Immature Gran % (Auto) 1.5 Neut % (Auto) 73.3 Lymph % (Auto) 13.0 [place] % (Auto) 11.9 Eos % (Auto) 0.1 Baso % (Auto) 0.2 Neut # (Auto) 6.46 Lymph # (Auto) 1.15 L [place] # (Auto) 1.05 H Eos # (Auto) 0.01 Baso # (Auto) 0.02 Immature Gran # (Auto) 0.13 H PT 18.5 H INR 1.8 H APTT 41.6 H PTT Ratio 1.5 Sodium 124 L Potassium 5.4 H Chloride 94 L Carbon Dioxide 16 L Anion Gap 14 H BUN 37 H Creatinine 2.36 H Est Cr Clr Drug Dosing 14.4 Est GFR ( Amer) 22.0 Est GFR (Non-Af Amer) 19.0 BUN/Creatinine Ratio 15.7 Glucose 68 L Calcium 8.5 Phosphorus Magnesium Total Bilirubin 1.4 H AST 1730 H ALT 808 H Alkaline Phosphatase 216 H Troponin I High Sens 225.3 H* D Total Protein 6.3 Albumin 3.4 Globulin 2.9 Albumin/Globulin Ratio 1.2 Lipase Hepatitis A IgM Ab Hep Bs Antigen Hep Bs Ag Confirmation Hep B Core IgM Ab Hepatitis C Ab (EIA) Hep C Ab Signal/Cutoff Monoscreen SARS-CoV-2, RNA, NAAT 03/19/22 03/19/22 03/19/22 11:13 11:13 14:25 WBC RBC Hgb Hct MCV MCH MCHC RDW Std Deviation RDW Coeff of [place] Plt Count MPV Immature Gran % (Auto) Neut % (Auto) Lymph % (Auto) [place] % (Auto) Eos % (Auto) Baso % (Auto) Neut # (Auto) Lymph # (Auto) [place] # (Auto) Eos # (Auto) Baso # (Auto) Immature Gran # (Auto) PT INR APTT PTT Ratio Sodium Potassium Chloride Carbon Dioxide Anion Gap BUN Creatinine Est Cr Clr Drug Dosing Est GFR ( Amer) Est GFR (Non-Af Amer) BUN/Creatinine Ratio Glucose Calcium Phosphorus Magnesium Total Bilirubin AST ALT Alkaline Phosphatase Troponin I High Sens Total Protein Albumin Globulin Albumin/Globulin Ratio Lipase 90 H Hepatitis A IgM Ab Pending Hep Bs Antigen Pending Hep Bs Ag Confirmation Pending Hep B Core IgM Ab Pending Hepatitis C Ab (EIA) Pending Hep C Ab Signal/Cutoff Pending Monoscreen Negative SARS-CoV-2, RNA, NAAT 03/19/22 03/19/22 03/19/22 14:25 15:15 16:53 WBC RBC Hgb Hct MCV MCH MCHC RDW Std Deviation RDW Coeff of Sachin Plt Count MPV Immature Gran % (Auto) Neut % (Auto) Lymph % (Auto) [place] % (Auto) Eos % (Auto) Baso % (Auto) Neut # (Auto) Lymph # (Auto) [place] # (Auto) Eos # (Auto) Baso # (Auto) Immature Gran # (Auto) PT INR APTT PTT Ratio Sodium Pending Potassium Pending Chloride Pending Carbon Dioxide Pending Anion Gap Pending BUN Pending Creatinine Pending Est Cr Clr Drug Dosing Pending Est GFR ( Amer) Pending Est GFR (Non-Af Amer) Pending BUN/Creatinine Ratio Pending Glucose Pending Calcium Pending Phosphorus Pending Magnesium Pending Total Bilirubin Pending AST Pending ALT Pending Alkaline Phosphatase Pending Troponin I High Sens 205.8 H* Total Protein Pending Albumin Pending Globulin Pending Albumin/Globulin Ratio Pending Lipase Hepatitis A IgM Ab Hep Bs Antigen Hep Bs Ag Confirmation Hep B Core IgM Ab Hepatitis C Ab (EIA) Hep C Ab Signal/Cutoff Monoscreen SARS-CoV-2, RNA, NAAT NEGATIVE Diagnostic Findings Records from [place] were reviewed including cardiac catheterization report, echo report, and ICD placement report. These were outlined in the HPI. ECG personally reviewed 03/19/2022 at 11:12 a.m.: Sinus rhythm 75 beats per m inute. RBBB. Lateral infarct. ECG 03/19/2022 at 3:19 p.m.: Sinus rhythm 70 beats per minute. RBBB. (with chest pain) Ultrasound report reviewed as noted above in HPI. Medications Administered Current Inpatient Medications Sodium Chloride (Nss) 500 mls @ 125 mls/hr IV .Q4H [facility] Stop: 04/18/22 11:44 Last Admin: 03/19/22 16:23 Dose: 125 mls/hr Nitroglycerin (Nitroglycerin 2% Ointment 30gm Tube) 0.5 inch EXT Q6H JOSE LUIS Stop: 04/18/22 16:14 Last Admin: 03/19/22 16:29 Dose: 0.5 inch Ondansetron HCl (Ondansetron Inj 2 Mg/Ml 2 Ml Vial) 4 mg IV Q6H PRN PRN Reason: Nausea And Vomiting Stop: 04/18/22 13:18 PG Care Time/CCT Total # of Minutes Spent Total Time Spent with Patient: Total time spent is greater than 50% in coordination of care (as documented) at patient's floor/unit and/or counseling patient: Coding Level of Care Code 12854 Initial Inpt Care Lvl 3 Diagnoses CAD (coronary artery disease) I25.10 S/P coronary artery stent placement Z95.5 Ischemic cardiomyopathy I25.5 Chronic systolic CHF (congestive heart failure) I50.22 S/P ICD (internal cardiac defibrillator) procedure Z95.810 Ventricular tachycardia I47.2 Acute cholecystitis K81.0 Nausea & vomiting R11.2 Chest pain R07.9 Elevated transaminase level R74.01 Elevated troponin R77.8 Hyperkalemia E87.5 [id number] kidney injury N17.9; N18.9
--- NOTE | 2022-03-19 17:06 | Surgery Consultation ---
Date of Consultation March 19, 2022 Assessment & Plan (1) Nausea & vomiting: She has a normal white blood cell count and minimal abdominal pain. I wonder if she does not have a viral hepatitis as etiology of her elevated LFTs. Agree with MRCP. If she continues to have evidence of cholecystitis she would be too high of a surgical risk for cholecystectomy. I would recommend transfer to a tertiary center for percutaneous cholecystostomy tube. I discussed all this with her and her daughter at bedside and they are agreeable to the plan. I will contact primary service. (2) Acute kidney injury: (3) Dehydration, mild: (4) Transaminitis: (5) S/P ICD (internal cardiac defibrillator) procedure: (6) Chronic systolic CHF (congestive heart failure): (7) Ischemic cardiomyopathy: (8) S/P coronary artery stent placement: (9) CAD (coronary artery disease): History of Present Illness History of Present Illness 81-year-old female who recently underwent emergent cardiac catheterization with stent placement while traveling in [place] several weeks ago. She has been having several weeks of nausea with vomiting. She does have some mild upper abdominal pain. Work-up to this point shows acute kidney failure as well as elia vated LFTs and potential cholecystitis on imaging. Allergies Allergy/AdvReac Type Severity Reaction Status Date / Time No Known Drug Allergies Allergy Unknown Verified 03/19/22 16:16 Home Medications Medication Instructions Recorded Confirmed Type Magnesium Hydroxide 8% Susp 30 ml PO DAILY 03/19/22 History Sucralfate Susp 1gm/10ml 1 g PO AC 03/19/22 History acetaminophen 325 mg tablet 650 mg PO .Q4UD 03/19/22 03/19/22 History (Tylenol) amiodarone 200 mg tablet 200 mg PO DAILY 03/19/22 03/19/22 History ascorbic acid (vitamin C) 500 mg 500 mg PO DAILY 03/19/22 03/19/22 History tablet (Vitamin C) aspirin 81 mg chewable tablet 81 mg PO DAILY 03/19/22 03/19/22 History atorvastatin 80 mg tablet 80 mg PO DAILY 03/19/22 03/19/22 History bisacodyl 10 mg rectal suppository 10 mg MI .DAILY UD 03/19/22 03/19/22 History calcium carbonate 500 mg calcium 500 mg PO BID 03/19/22 03/19/22 History (1,250 mg) tablet cholecalciferol (vitamin D3) 50 50 mcg PO DAILY 03/19/22 03/19/22 History mcg (2,000 unit) capsule (Vitamin D3) cyclobenzaprine 5 mg tablet 5 mg PO BID PRN Muscle Spasm 03/19/22 03/19/22 History diclofenac sodium 1 % topical gel 2 g topical QID PRN Pain 03/19/22 03/19/22 History docusate sodium 100 mg capsule 100 mg PO BID 03/19/22 03/19/22 History famotidine 20 mg tablet 20 mg PO BID 03/19/22 03/19/22 History ferrous sulfate 325 mg (65 mg 325 mg PO DAILY 03/19/22 03/19/22 History iron) tablet (iron) heparin (porcine) 5,000 unit/mL 5,000 unit subcut Q12H 03/19/22 03/19/22 History injection syringe hydroxychloroquine 200 mg tablet 200 mg PO DAILY 03/19/22 03/19/22 History levothyroxine 100 mcg tablet 100 mcg PO DAILY 03/19/22 03/19/22 History metoprolol succinate 100 mg 100 mg PO DAILY 03/19/22 03/19/22 History tablet,extended release 24 hr multivitamin 1 tab PO DAILY 03/19/22 03/19/22 History ondansetron 4 mg disintegrating 4 mg PO Q6H PRN Nausea 03/19/22 03/19/22 History tablet pantoprazole 40 mg tablet,delayed 40 mg PO BID 03/19/22 03/19/22 History release polyethylene glycol 3350 17 gram 17 g PO DAILY 03/19/22 03/19/22 History oral powder packet (Miralax) prednisone 5 mg tablet 5 mg PO DAILY 03/19/22 03/19/22 History rotigotine 1 mg/24 hour 1 mg transdermal HS 03/19/22 03/19/22 History transdermal 24 hour patch sacubitril 24 mg-valsartan 26 mg 1 tab PO Q12 03/19/22 03/19/22 History tablet senna-docusate sodium tablet 1 tab PO .Q LUNCH 03/19/22 03/19/22 History spironolactone 25 mg tablet 25 mg PO DAILY 03/19/22 03/19/22 History ticagrelor 90 mg tablet (Brilinta) 90 mg PO Q12 03/19/22 03/19/22 History tramadol 50 mg tablet 50 mg PO Q8H PRN Pain 03/19/22 03/19/22 History Patient History Medical History Acid reflux Acute encephalopathy Acute hyponatremia Acute [place] Acute UTI CAD (coronary artery disease) [place] in [place] in 02/2022. 1 stent placed (believe LCx, but not sure). 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 Dysuria Hiatal hernia History of Hodgkin's lymphoma S/P RADIATION/CHEMO (2000) History of pelvic fracture Hyperlipidemia Hypertension Hypothyroidism Ischemic cardiomyopathy Mixed stress and urge urinary incontinence Restless leg syndrome Rheumatoid arthritis ON PLAQUENIL AND CHRONIC PREDNISONE 7.5MG DAILY Sciatica Scoliosis Stage 3b chronic kidney disease Ventricular tachycardia Surgical History H/O foot surgery 2ND RT TOE REMOVED History of bilateral cataract extraction RIGHT CATARACT EXTRACTION WITH IOL= 04/05/18= MAC SEDATION AT [facility] History of colonoscopy History of gynecologic surgery ANTERIOR AND POSTERIOR REPAIR - colporrhaphy (for pelvic relaxation) History of removal of cyst HEAD (BENIGN) History of tonsillectomy History of tooth extraction History of total knee replacement RT History of urologic surgery URETEROLYSIS- 04/1995 [facility] [place] S/P coronary artery stent placement S/P ICD (internal cardiac defibrillator) procedure S/P vaginal hysterectomy Family History Mother , age 80 Cardiac disorder Family history of lung cancer Brother Diabetes Family history of lung cancer Family history of diabetes mellitus Daughter Breast cancer Father , age 57 Cardiac disorder Grandmother Diabetes Aunt Ovarian cancer paternal aunt Grandmother (Paternal) Family history of diabetes mellitus Other Cancer Heart disease No family history of adverse response to anesthesia No family history of bleeding disorder Denies family history of Colon cancer Colorectal cancer Social History Smoking Status: Never smoker Tobacco Type: Cigarettes Cigarettes Per Day: QUIT + 30 YEARS AGO; Second Hand Exposure: No; Hx Alcohol Use: No Hx Substance Use: No Preferred Language: Kyrgyz Communication Ability: Effective Visual Impairment: No Limitations Hearing Ability: Use of Hearing Aid [employer] Technical Director Required: No Beliefs That Will Affect Care: None marital status: / Current Living Situation: Alone Current Living Situation Comment: home alone w/ daughter close & friends close. 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 She is oriented ENMT: Pupils are equal and reactive to light and accommodation. Mucous membranes are dry. Cranial nerves intact Neck: Supple Respiratory: No respiratory distress. Mild increase in accessory muscle use Cardiovascular: Regular Gastrointestinal (Abdomen): Soft. Mild epigastric tenderness. No guarding. Skin: Cool. Pale. Decreased skin turgor Results & Data ([facility]) Vital Signs (Past 12 Hours) Vital Signs Temp Pulse Pulse Resp BP BP Pulse Ox 03/19/22 15:17 68 20 134/74 94 03/19/22 11:18 75 20 94 03/19/22 11:18 03/19/22 11:17 73 20 109/86 94 03/19/22 11:12 81 20 98 03/19/22 11:12 03/19/22 11:12 81 20 109/86 98 03/19/22 11:19 36.4 C L 81 20 109/86 98 O2 Del Method O2 Flow Rate 03/19/22 15:17 03/19/22 11:18 Room Air 03/19/22 11:18 Room Air 94 03/19/22 11:17 Room Air 03/19/22 11:12 Room Air 03/19/22 11:12 Room Air 03/19/22 11:12 Room Air 03/19/22 11:19 Room Air PG Care Time/CCT Total # of Minutes Spent Total Time Spent with Patient: Total time spent is greater than 50% in coordination of care (as documented) at patient's floor/unit and/or counseling patient: Coding Level of Care Code 05044 Initial Inpt Care Lvl 3 Diagnoses Nausea & vomiting R11.2 Acute kidney injury N17.9 Dehydration, mild E86.0 Transaminitis R74.01 S/P ICD (internal cardiac defibrillator) procedure Z95.810 Chronic systolic CHF (congestive heart failure) I50.22 Ischemic cardiomyopathy I25.5 S/P coronary artery stent placement Z95.5 CAD (coronary artery disease) I25.10
[2022-03-19 17:32] LABS: Albumin Globulin Ratio 1.2 (0.9-2); Albumin Level 3.1 gm/dl (3.4-5.0); BUN Creatinine Ratio 15.6 (10-20); Bilirubin,Total 1.3 mg/dl (0.2-1.0); Calcium 7.8 mg/dl (8.5-10.1); Creatinine Clr Calc Pharmacy 15.1 ml/min; Est GFR (African American) 23.4 ml/min; Est GFR (Non-African American) 20.2 ml/min; Globulin 2.6 gm/dl (2.5-4.0); Magnesium 1.5 mg/dl (1.7-2.4); Phosphorus 4.2 mg/dl (2.5-4.9); Total Protein 5.7 gm/dl (6.0-8.3)
[2022-03-19] MEDS ORDERED: NITROGLYCERIN SL 0.4 MG/TAB TAB SL PRN (17:58)
[2022-03-19] MEDS ORDERED: NITROGLYCERIN 2% OINTMENT 30GM TUBE EXT SCH (18:00)
--- NOTE | 2022-03-19 18:01 | Discharge Summary ---
Date of Service March 19, 2022 Admission HPI Per Admitting Provider Shruthi is a 81-year-old female with a past medical history of V. tach with ICD, chronic systolic CHF and CAD s/p PCI, trigger finger, CKD 3B, hearing loss, periodic limb movement disorder/dyskinesia, chronic hyponatremia, already, hyperlipidemia, hypertension, hypothyroidism, Hodgkin's disease who present to the emergency department with nausea, dry heaves, and electrolyte abnormalities. Was discharged from the hospital on 03/11/2022 for nausea/vomiting with positive fecal occult blood test and with slight HFrEF exacerbation. Per ER At [facility], last few days with +N/+V/+dry heaves worsening over last few d ays. To the point of being unable to eat/drink and progressively volume depleted. Hyponatremia, MURRAY at [facility]. Trop 225. Chest pain free and was previously in 3000s. EKG: no acute ST segment changes/consistent with acute ischemia. Per Pt/Daughter: Had an MRI in [facility] and arrived there February 22 (1 month ago). On the started feeling nauseus. Was seen for medical care there and had a heart attack. attempted cath, called a specialist who put a stent in a 99% circumflex blockage. Defib placed on March 0209/09 and VT arrest. Released from the hospital on March 04. Returned to [facility] for nausea which started ~- while in [place]. - was at [facility] and dc to [facility] for OT/PT. Continued to have persistent nausea with poor PO intake. +SoB for a few days. Not eating well. +Addominal pain with dry heaves, denies chest pain/chest pressure, fever, chills, presyncope. Zofran works OK IV, but cant keep the oral tabs down at [facility]. Denies light-colored stool/jesus clip. Stool. Does Dors right upper quadrant pain with food and diminished appetite which preceded her hospitalization to [place], she notes 1 to 2 weeks of poor appetite and intake beforehand. This was concurrent with some diarrhea worsened with foods, no jesus colored/light-colored stools. Medical History: Reviewed Medications: Reviewed Surgical History: Reviewed Allergies: Reviewed Social History: No tobacco product use. Rare social EtoH use yearly. No MM use/RR drug use Code Status: Surrogate VESTA Greco daughter. [phone]. DNR/DNI. Principal Diagnosis Acute cholecystitis ? Shock liver High cardiac risk, recent NM with VT arrest and s/p circumflex stent and ICD placement Transaminitis Discharge Exam General: A&Ox3. NAD. Cooperative. HEENT: Atraumatic, normocephalic. Vision/hearing grossly intact. Pupils equal and reactive to light. Pulm: CTAB A&P. -wheezes, -rales, -rhonchi. Symmetrical chest rise. No increase in work of breathing. No respiratory distress. Cardiac: RRR, soft systolic murmur. Radial pulses intact and symmetrical. No JVD appreciated. Well-healing ICD site at left chest, no overlying erythema/discharge/dehiscence. Abdominal: Focally tender in right upper quadrant with some epigastric tenderness Extremities: Warm, dry. No pitting edema. PT pulses intact bilaterally. Radial pulse intact bilaterally. Ankle dorsiflexion/plantarflexion, child nutrition assistant strength 5/5, although with fatigue throughout testing Discharge Data Allergies Allergy/AdvReac Type Severity Reaction Status Date / Time No Known Drug Allergies Allergy Unknown Verified 03/19/22 16:16 Consultations 03/19/22 12:44 ED Decision to Admit Stat 03/19/22 15:35 Consult Cardiology Routine 03/19/22 15:38 Consult General Surgery Routine Ordered Studies 03/19/22 11:42 CT abd pelvis wo con Stat 03/19/22 13:19 gallbladder Urgent Hospital Course (1) Cljcw-[id number]-zxafnmt kidney injury: Shruthi is a 81-year-old female with a past medical history of V. tach with ICD, chronic systolic CHF and CAD s/p PCI, trigger finger, CKD 3B, hearing loss, periodic limb movement disorder/dyskinesia, chronic hyponatremia, already, hyperlipidemia, hypertension, hypothyroidism, Hodgkin's disease who present to the emergency department with nausea, dry heaves, and electrolyte abnormalities. Was discharged from the hospital on 03/11/2022 for nausea/vomiting with positive fecal occult blood test and with slight HFrEF exacerbation. Patient is with Nausea/vomiting/transaminitis Suspected cholecystitis Patient reports symptoms preceded her hospitalization in [place] for NM, she had had poor appetite worsened with meals and pain in the right upper quadrant which has continued and not improved Amiodarone side effect considered, however patient symptoms seem to precede this Gallbladder eval as below, patient does have history of hiatal hernia with partial intrathoracic stomach With transaminitis, suspect hypovolemia with shock liver superimposed on poor perfusion with recent NM and acute cholecystitis Amnio started last month for VT with arrest in the setting of NM, cannot rule out transaminitis due to amiodarone toxicity Sodium 124, potassium 5.4, creatinine acutely elevated to 2.36 in the setting of minimal to poor intake and nonbilious/nonbloody emesis Patient appears volume contracted, fatigued - Hypotensive to 80s on admit, SBP normalized with IVF + Zosyn No fever/chills/sweats Continue sucralfate, PPI, H2 Zofran as needed CT A/P: Pericholecystic fluid and infiltration extending into the right upper quadrant, adjacent to the right colon. Hyperdense material within the gallbladder. Acute cholecystitis is the diagnosis of exclusion however the gallbladder is not distended. Right upper quadrant ultrasound is recommended for further evaluation. A colonic etiology is within the differential but considered less likely. No colon wall thickening. No bowel obstruction.2. Small right and trace left pleural effusions. Mild interstitial pulmonary edema.3. Hiatal hernia with partially intrathoracic stomach.4. Subcutaneous gas within the anterior abdominal wall, likely related to injections. Ultrasound gallbladder Thickened gallbladder wall and positive sonographic Guido's sign compatible with acute cholecystitis, possibly acalculous cholecystitis. MRCP unable to be done due to recent placement of ICD. INR is elevated to 1.8, patient does not take anticoagulants including warfarin/DOAC's. Liver panel is pending including acute hepatitis panel and mono. Liver echotexture on CT grossly normal Patient with heart failure, but is clinically dry on assessment. CT with mild pulmonary edema. Limited repeat echo pending. Cautious IV fluids follow carefully for signs of volume overload Patient recommended for transfer to [facility] given very high cardiac risk, high burden of illness, and if with acute cholecystitis confirmed on HIDA would benefit from percutaneous drainage rather than surgical intervention Chronic anemia Hemoglobin 9.2, baseline appears in the nines MCV 92 B12/folate recently checked, both elevated with supplementation Iron studies: Ferritin elevated, TSAT low end normal, U IBC normal, TIBC slightly low 03/08/2022 consistent with anemia of chronic disease Trend CBC, transfusion threshold 8.0 given cardiac history - INR as noted Hyponatremia -Sodium 124, acutely decreased from baseline of approximately 131 Potassium 5.4 Creatinine 2.36 elevated from baseline of approximately 1.331.64 Suspect in the setting of volume/solute depletion with poor p.o. intake and persistent nausea/dry heaves History of heart failure with some pulmonary vascular congestioneffusion. Will admit and give antiemetics, received initial fluid resuscitation, cautious over hydration due to EF 35% Hypertension Amlodipine held for low normal blood pressure Toprol all, spironolactone, Entresto as otherwise noted Hypothyroidism Continue Synthroid TSH previously elevated, will recheck for free T4. TSH may be falsely elevated in the setting of acute illness Chronic CHF reduced ejection fraction, history of V. tach with ICD, PCI to circumflex while in [place] 1 month ago Entresto held for MURRAY - CXR: Cardiomegaly with pulmonary vascular congestion. Possible small bilateral pleural effusions/mild bibasilar opacities suspicious for atelectasis Spironolactone held for MURRAY Continue metoprolol Lasix deferred with MURRAY and volume depletion Continue amiodarone 200 mg daily Statin held Continue aspirin/Brilinta - Troponin high-sensitivity 225.3. Downtrending, without acute signs of ischemia on EKG previously in the 3000 ~12 days ago. - No clinical chest pain/pressure. If patient require surgical intervention for cystitis/choledocholithiasis, will require optimization and is medically complex including DAPT within 1 month window of NM. After above initial eval, consult cardiology for optimization and commendations Patient did have an episode of chest pain which improved and pain completely resolved following nitro, Nitropaste and 1 mg of morphine. Repeat EKG without acute ST segment changes/repolarization changes. Cardiology consulted. Appreciate recommendations. Amnio discontinued for significantly elevated transaminases. Recommend continuing to be trended troponins. You hold Entresto/spironolactone for MURRAY. Repeat limited echo shows EF 35%, similar to prior wall motion on initial review RA Plaquenil temporarily held (2) Hyperkalemia: (3) Acute cholecystitis: (4) Transaminitis: (5) S/P ICD (internal cardiac defibrillator) procedure: (6) Ventricular tachycardia: Total Time Total Time Spent Total Time Spent (In Minutes): Time spend day of discharge 90 minutes including direct patient care, documentation, review of labs and images, and coordination of care. Patient was discharged same day of admission, billing code adjusted Discharge Plan Discharge Items Patient Disposition: Transfer Acute Care Hospital Reason For Visit: ?GABRIELA, RECENT NM, ELEVATED TROP Discharge Diagnosis: Hypotension with MURRAY and volume depletion Cholecystitis ? Shock liver High cardiac risk, recent ACS s/p PCI and ICD placement Activity: Per Instructions section Non-emergency contact: Specialist Call non-emergency contact if: you have any medication questions Follow-up/Referrals: Maddison Metzger MD [Primary Care Provider] - Diet: Nothing by Mouth Addtl Attending Provider Instructions: Shruthi is a 81-year-old female with a past medical history of V. tach with ICD, chronic systolic CHF and CAD s/p PCI, trigger finger, CKD 3B, hearing loss, periodic limb movement disorder/dyskinesia, chronic hyponatremia, already, hyperlipidemia, hypertension, hypothyroidism, Hodgkin's disease who present to the emergency department with nausea, dry heaves, and electrolyte abnormalities. Was discharged from the hospital on 03/11/2022 for nausea/vomiting with positive fecal occult blood test and with slight HFrEF exacerbation. Nausea/vomiting/transaminitis Suspected cholecystitis Patient reports symptoms preceded her hospitalization in [place] for NM, she had had poor appetite worsened with meals and pain in the right upper quadrant which has continued and not improved Amiodarone side effect considered, however patient symptoms seem to precede this Gallbladder eval as below, patient does have history of hiatal hernia with partial intrathoracic stomach With transaminitis, suspect hypovolemia with shock liver superimposed on poor perfusion with recent NM and acute cholecystitis Amnio started last month for VT with arrest in the setting of NM, cannot rule out transaminitis due to amiodarone toxicity Sodium 124, potassium 5.4, creatinine acutely elevated to 2.36 in the setting of minimal to poor intake and nonbilious/nonbloody emesis Patient appears volume contracted, fatigued - Hypotensive to 80s on admit, SBP normalized with IVF + Zosyn No fever/chills/sweats Continue sucralfate, PPI, H2 Zofran as needed CT A/P: Pericholecystic fluid and infiltration extending into the right upper quadrant, adjacent to the right colon. Hyperdense material within the gallbladder. Acute cholecystitis is the diagnosis of exclusion however the gallbladder is not distended. Right upper quadrant ultrasound is recommended for further evaluation. A colonic etiology is within the differential but considered less likely. No colon wall thickening. No bowel obstruction.2. Small right and trace left pleural effusions. Mild interstitial pulmonary edema.3. Hiatal hernia with partially intrathoracic stomach.4. Subcutaneous gas within the anterior abdominal wall, likely related to injections. Ultrasound gallbladder Thickened gallbladder wall and positive sonographic Guido's sign compatible with acute cholecystitis, possibly acalculous cholecystitis. MRCP unable to be done due to recent placement of ICD. INR is elevated to 1.8, patient does not take anticoagulants including warfarin/DOAC's. Liver panel is pending including acute hepatitis panel and mono. Liver echotexture on CT grossly normal Patient with heart failure, but is clinically dry on assessment. CT with mild pulmonary edema. Limited repeat echo pending. Cautious IV fluids follow carefully for signs of volume overload Patient recommended for transfer to [facility] given very high cardiac risk, high burden of illness, and if with acute cholecystitis confirmed on HIDA would benefit from percutaneous drainage rather than surgical intervention Chronic anemia Hemoglobin 9.2, baseline appears in the nines MCV 92 B12/folate recently checked, both elevated with supplementation Iron studies: Ferritin elevated, TSAT low end normal, U IBC normal, TIBC slightly low 03/08/2022 consistent with anemia of chronic disease Trend CBC, transfusion threshold 8.0 given cardiac history - INR as noted Hyponatremia -Sodium 124, acutely decreased from baseline of approximately 131 Potassium 5.4 Creatinine 2.36 elevated from baseline of approximately 1.331.64 Suspect in the setting of volume/solute depletion with poor p.o. intake and persistent nausea/dry heaves History of heart failure with some pulmonary vascular congestioneffusion. Will admit and give antiemetics, received initial fluid resuscitation, cautious over hydration due to EF 35% Hypertension Amlodipine held for low normal blood pressure Toprol all, spironolactone, Entresto as otherwise noted Hypothyroidism Continue Synthroid TSH previously elevated, will recheck for free T4. TSH may be falsely elevated in the setting of acute illness Chronic CHF reduced ejection fraction, history of V. tach with ICD, PCI to circumflex while in [place] 1 month ago Entresto held for MURRAY - CXR: Cardiomegaly with pulmonary vascular congestion. Possible small bilateral pleural effusions/mild bibasilar opacities suspicious for atelectasis Spironolactone held for MURRAY Continue metoprolol Lasix deferred with MURRAY and volume depletion Continue amiodarone 200 mg daily Statin held Continue aspirin/Brilinta - Troponin high-sensitivity 225.3. Downtrending, without acute signs of ischemia on EKG previously in the 3000 ~12 days ago. - No clinical chest pain/pressure. If patient require surgical intervention for cystitis/choledocholithiasis, will require optimization and is medically complex including DAPT within 1 month window of NM. After above initial eval, consult cardiology for optimization and commendations Repeat limited echo shows EF 35%, similar to prior wall motion on initial review RA Plaquenil temporarily held Pending Studies at Discharge: No Stand-Alone Forms: My [facility] Skilled Items Patient informed of condition?: Yes DNR: Yes Discharge Level of Care: Other Communicable Disease: No Discharge Prognosis: Deteriorating Lines: Peripheral IV Urinary Catheter: No Medications and DC Order Prescriptions: Continued multivitamin Tablet 1 tab PO DAILY atorvastatin 80 mg tablet 80 mg PO DAILY acetaminophen [Tylenol] 325 mg Tablet 650 mg PO .Q4UD polyethylene glycol 3350 [Miralax] 17 gram Powder In Packet 17 g PO DAILY amiodarone 200 mg tablet 200 mg PO DAILY metoprolol succinate 100 mg Tablet Extended Release 24 Hr 100 mg PO DAILY spironolactone 25 mg Tablet 25 mg PO DAILY levothyroxine 100 mcg tablet 100 mcg PO DAILY famotidine 20 mg Tablet 20 mg PO BID calcium carbonate 500 mg calcium (1,250 mg) Tablet 500 mg PO BID ascorbic acid (vitamin C) [Vitamin C] 500 mg Tablet 500 mg PO DAILY bisacodyl 10 mg Suppository 10 mg DC .DAILY UD pantoprazole 40 mg Tablet,Delayed Release (Dr/Ec) 40 mg PO BID Rx Instructions: Take before a meal ferrous sulfate [iron] 325 mg (65 mg iron) Tablet 325 mg PO DAILY docusate sodium 100 mg Capsule 100 mg PO BID aspirin 81 mg tablet,chewable 81 mg PO DAILY hydroxychloroquine 200 mg Tablet 200 mg PO DAILY ondansetron 4 mg Tablet,Disintegrating 4 mg PO Q6H PRN (Reason: Nausea) senna-docusate sodium Tablet 1 tab PO .Q LUNCH heparin (porcine) 5,000 unit/mL Syringe 5,000 unit SUBCUT Q12H cyclobenzaprine 5 mg Tablet 5 mg PO BID PRN (Reason: Muscle Spasm) diclofenac sodium 1 % gel 2 g TOPICAL QID PRN (Reason: Pain) cholecalciferol (vitamin D3) [Vitamin D3] 50 mcg (2,000 unit) Capsule 50 mcg PO DAILY Brilinta 90 mg tablet 90 mg PO Q12 rotigotine 1 mg/24 hour Patch 24 Hour 1 mg TRANSDERMAL HS Rx Instructions: Remove daily sacubitril-valsartan 24-26 mg Tablet 1 tab PO Q12 Magnesium Hydroxide 8% Susp 30 ml PO DAILY Rx Instructions: 2.4gm Sucralfate Susp 1gm/10ml 1 g PO AC Rx Instructions: tid ac prednisone 5 mg Tablet 5 mg PO DAILY tramadol 50 mg Tablet 50 mg PO Q8H PRN (Reason: Pain) Discharge Orders: Discharge Order (Routine); Ordered 03/19/22 Ordered By: Ronak Moulton Admission Data Admit Date/Time: 03/19/22 13:18 Attending Provider: Ronak Moulton Admit Provider: Ronak Moluton Primary Care Provider: Maddison Metzger Other Providers: Ronak Moulton ; Simone Arellano ; Darinel Edmondson Coding Level of Care Code OBSERV/HOSP SAME DATE LVL 3 Diagnoses Daqdf-ni-giktzea kidney injury N17.9; N18.9 Hyperkalemia E87.5 Acute cholecystitis K81.0 Transaminitis R74.01 S/P ICD (internal cardiac defibrillator) procedure Z95.810 Ventricular tachycardia I47.2
--- NOTE | 2022-03-19 19:35 | XCELERA ---
[id number]
[2022-03-19] MEDS ORDERED: TICAGRELOR 90 MG TAB PO SCH (21:00)
[2022-03-19] MEDS ORDERED: ATORVASTATIN 40 MG TAB PO SCH (21:00)
[2022-03-19] MEDS ORDERED: PIPERACILLIN/TAZOBACTAM 3.375 GM in DEXTROSE 5% 100 ML IV SCH (22:00)
[2022-03-20] MEDS ORDERED: LEVOTHYROXINE SODIUM 100 MCG TABLET PO SCH (06:30)
--- NOTE | 2022-03-20 06:35 | Electrocardiogram Report ---
Test Reason : Blood Pressure : / mmHG Vent. Rate : 075 BPM Atrial Rate : 075 BPM P-R Int : 196 ms QRS Dur : 168 ms QT Int : 498 ms P-R-T Axes : 031 -61 000 degrees QTc Int : 556 ms Normal sinus rhythm with sinus arrhythmia Possible Left atrial enlargement Left axis deviation Right bundle branch block Lateral infarct (cited on or before 06-MAR-2022) Abnormal ECG When compared with ECG of 06-MAR-2022 09:09, No significant change Confirmed by Simone Arellano ([id number]) on 03/20/2022 6:34:24 AM Referred By: REFERRED SELF Confirmed By:Simone Arellano
[2022-03-20] MEDS ORDERED: AMIODARONE 200 MG TAB PO SCH (09:00)
[2022-03-20] MEDS ORDERED: ASPIRIN 81 MG ECTAB PO SCH (09:00)
[2022-03-20] MEDS ORDERED: METOPROLOL SUCC 50MG EXT REL TAB PO SCH (09:00)
--- NOTE | 2022-03-20 11:52 | Electrocardiogram Report ---
Test Reason : Blood Pressure : / mmHG Vent. Rate : 070 BPM Atrial Rate : 070 BPM P-R Int : 178 ms QRS Dur : 156 ms QT Int : 480 ms P-R-T Axes : 049 -52 -08 degrees QTc Int : 518 ms Normal sinus rhythm Possible Left atrial enlargement Left axis deviation Right bundle branch block Lateral infarct (cited on or before 06-MAR-2022) Possible Inferior infarct (cited on or before 06-MAR-2022) Abnormal ECG When compared with ECG of 19-MAR-2022 11:12, No significant change was found Confirmed by Elieser Posey ([id number]) on 03/20/2022 11:51:48 AM Referred By: REFERRED SELF Confirmed By:Elieser Posey
[2022-03-22 07:47] LABS: HBSAG NON-REACTIVE (NON-REACTIVE); Hepatitis A Antibody IgM NON-REACTIVE (NON-REACTIVE); Hepatitis B Core Antibody IgM NON-REACTIVE (NON-REACTIVE)
== END 2022-03-19 21:36 | disposition short-term general hospital (02) | DRG 445 ==
LOC: ED 11:02 → EDINP 13:18

== ENCOUNTER 2022-04-18 14:58 | Inpatient (IN) ==
[2022-04-18 15:33] LABS: Basophils # (auto) 0.02 K/uL (0-0.2); Basophils % (auto) 0.3 %; Eosinophils # (auto) 0.03 K/uL (0-0.50); Eosinophils % (auto) 0.4 %; Hematocrit (blood only) 29.4 % (34.1-44.9); Hemoglobin 9.4 g/dl (12.0-16.0); Immature Granulocytes # (auto) 0.12 K/uL (0.00-0.02); Immature Granulocytes % (auto) 1.8 %; Lymphocytes # (auto) 0.91 K/uL (1.2-3.4); Lymphocytes % (auto) 13.4 %; Mean Corpuscular Hemoglobin 30.2 pg (25.0-34.0); Mean Corpuscular Volume 94.5 fL (80.0-100.0); Mean Platelet Volume 8.3 fL (9.4-12.3); Monocytes # (auto) 0.39 K/uL (0.24-0.82); Monocytes % (auto) 5.7 %; Neutrophils # (auto) 5.34 K/uL (1.4-6.5); Neutrophils % (auto) 78.4 %; Platelet Count 298 K/uL (130-400); RDW Coefficient of Variation 16.6 % (11.5-14.5); RDW Standard Deviation 54.4 fL (36.4-46.3); Red Blood Count 3.11 M/uL (3.93-5.22); White Blood Count 6.81 K/ul (4.8-10.8)
[2022-04-18 15:51] LABS: INR 1.5 (0.9-1.1); Partial Thromboplastin Ratio 1.1; Partial Thromboplastin Time 30.2 Seconds (21.0-31.0); Prothrombin Time 16.1 Seconds (9.0-12.0)
[2022-04-18 15:57] LABS: Alanine Aminotransferase 28 U/L (7-52); Albumin Globulin Ratio 1.2 (0.9-2); Albumin Level 3.7 gm/dl (3.4-5.0); Alkaline Phosphatase 111 U/L (34-104); Anion Gap 17 (3-11); Aspartate Aminotransferase 38 U/L (13-39); BUN Creatinine Ratio 24.6 (10-20); Bilirubin,Total 0.8 mg/dl (0.2-1.0); Blood Urea Nitrogen 46 mg/dl (6-23); Carbon Dioxide 17 mmol/L (21-32); Chloride 93 mmol/L (98-107); Est GFR (African American) 29.1 ml/min; Est GFR (Non-African American) 25.1 ml/min; Globulin 3.1 gm/dl (2.5-4.0); Glucose 92 mg/dl (70-99(Fasting)); Potassium 4.4 mmol/L (3.5-5.1); Sodium 127 mmol/L (136-145); Total Protein 6.8 gm/dl (6.0-8.3)
[2022-04-18 16:01] LABS: Troponin I High Sensitivity 44.2 pg/ml (0-14)
--- NOTE | 2022-04-18 16:47 | Emergency Department Note ---
History of Present Illness General Chief complaint: Cardiac Assessment Stated complaint: BLUE FOOT, SLURRED SPEECH, SOB, PT OF DR FUNES Time Seen by Provider: 04/18/22 16:11 Source: patient and family Mode of arrival: wheelchair Limitations: no limitations History of Present Illness Provider complaint: Blue discoloration to right big toe and foot, slurred speech Maximum Pain Intensity: 3 This is a 81-year-old female who presents with concern for worsening blue discoloration to her right great toe and foot as well as slurred speech over the last 2 to 3 days per family at bedside. Patient does reside in a local facility and daughter talks to her daily. She states that her speech was slightly slurred yesterday and she thought it was because she had just woke up. She states a friend texted her today and noted that her speech has been slurred in preceding days also. Daughter states today her speech seems normal. Denies any difficulty with word finding, headaches recurrent dizziness. She denies any other weakness or vision changes. Family also states that last evening they noted that she had a slight discoloration to the right great toe. They contacted the on-call employment counselor that evening Dr. Posey and were directed to contact the office in the morning. She states they were seen in the cardiology office by one of the PAs and had an arterial Doppler done of the right lower extremity. She states that they found a flap in a blood vessel in her groin that they think is secondary to the cardiac catheterization she had back in February for a heart attack. I think that a small piece of that came off and caused an occlusion of a blood vessel in her foot or toe causing the discoloration. Patient is on aspirin and Brilinta currently given the recent coronary intervention. States the spot on her toe that was involved is painful. She denies numbness or tingling. Daughter states this morning when she went to visit her they noticed that the bottoms of all of her toes and even correction down the plantar aspect of her foot was now blue and she had increased pain. Daughter states that by arrival here that had improved. Pt seen during a time of high acuity and national emergency pandemic while wearing PPE. Home Medications Medication Instructions Recorded Confirmed Type acetaminophen 325 mg tablet 650 mg PO Q4 PRN Pain 03/19/22 04/18/22 History (Tylenol) amiodarone 200 mg tablet 200 mg PO DAILY 03/19/22 04/18/22 History aspirin 81 mg chewable tablet 81 mg PO DAILY 03/19/22 04/18/22 History docusate sodium 100 mg capsule 100 mg PO BID 03/19/22 04/18/22 History ferrous sulfate 325 mg (65 mg 325 mg PO DAILY 03/19/22 04/18/22 History iron) tablet (iron) levothyroxine 100 mcg tablet 100 mcg PO DAILY 03/19/22 04/18/22 History multivitamin 1 tab PO DAILY 03/19/22 04/18/22 History pantoprazole 40 mg tablet,delayed 40 mg PO BID 03/19/22 04/18/22 History release prednisone 5 mg tablet 5 mg PO DAILY 03/19/22 04/18/22 History ticagrelor 90 mg tablet (Brilinta) 90 mg PO Q12 03/19/22 04/18/22 History rotigotine 1 mg/24 hour 2 mg transdermal HS #90 ea 03/22/22 04/18/22 Rx transdermal 24 hour patch hydroxyzine HCl 25 mg tablet 25 mg PO HS PRN Anxiety 04/08/22 04/18/22 History metoprolol succinate 25 mg 25 mg PO DAILY 04/08/22 04/18/22 History tablet,extended release 24 hr omeprazole 20 mg capsule,delayed 20 mg PO DAILY 04/08/22 04/18/22 History release thiamine HCl (vitamin B1) 100 mg 100 mg PO DAILY 04/08/22 04/18/22 History tablet furosemide 40 mg tablet 40 mg PO DAILY PRN weight gain 04/14/22 04/18/22 History senna-docusate sodium tablet 1 tab PO BID PRN Constipation 04/14/22 04/18/22 History tramadol 50 mg tablet 50 mg PO Q6H PRN Pain #240 tabs 04/14/22 04/18/22 Rx atorvastatin 80 mg tablet 80 mg PO DAILY #90 tabs 04/16/22 04/18/22 Rx apixaban 2.5 mg tablet (Eliquis) 2.5 mg PO BID #60 tabs 04/19/22 Rx Allergies Allergy/AdvReac Type Severity Reaction Status Date / Time gabapentin Allergy Unknown Verified 04/18/22 19:05 Past Med/Surg History Medical History Acid reflux Acute encephalopathy Acute hyponatremia Acute CT Acute UTI CAD (coronary artery disease) CT in [place] in 02/2022. 1 stent placed (believe LCx, but not sure). 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 Dehydration, mild DVT prophylaxis Dysuria Elevated troponin Hiatal hernia History of Hodgkin's lymphoma S/P RADIATION/CHEMO (2000) History of pelvic fracture Hyperlipidemia Hypertension Hypothyroidism Ischemic cardiomyopathy Mixed stress and urge urinary incontinence Nausea & vomiting Restless leg syndrome Rheumatoid arthritis ON PLAQUENIL AND CHRONIC PREDNISONE 7.5MG DAILY Sciatica Scoliosis Stage 3b chronic kidney disease Ventricular tachycardia Surgical History H/O foot surgery 2ND RT TOE REMOVED History of bilateral cataract extraction RIGHT CATARACT EXTRACTION WITH IOL= 04/05/18= MAC SEDATION AT [facility] History of colonoscopy History of gynecologic surgery ANTERIOR AND POSTERIOR REPAIR - colporrhaphy (for pelvic relaxation) History of removal of cyst HEAD (BENIGN) History of tonsillectomy History of tooth extraction History of total knee replacement RT History of urologic surgery URETEROLYSIS- 04/1995 [facility] [place] S/P coronary artery stent placement S/P ICD (internal cardiac defibrillator) procedure S/P vaginal hysterectomy Family History Mother , age 80 Cardiac disorder Family history of lung cancer Brother Diabetes Family history of lung cancer Family history of diabetes mellitus Daughter Breast cancer Father , age 57 Cardiac disorder Grandmother Diabetes Aunt Ovarian cancer paternal aunt Grandmother (Paternal) Family history of diabetes mellitus Other Cancer Heart disease No family history of adverse response to anesthesia No family history of bleeding disorder Denies family history of Colon cancer Colorectal cancer Social History Smoking Status: Never smoker Tobacco Type: Cigarettes Cigarettes Per Day: QUIT + 30 YEARS AGO; Second Hand Exposure: No; Do You Dip or Chew Tobacco: No; Hx Alcohol Use: No Hx Substance Use: No Preferred Language: Yakut Communication Ability: Effective Visual Impairment: No Limitations Hearing Ability: Use of Hearing Aid Clerical Specialist Required: No Beliefs That Will Affect Care: None marital status: / Current Living Situation: Personal Care Facility Current Living Situation Comment: [facility] 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 [employer] Other Information That Helps Us Care for You: No Feels Safe at Home: Yes Safety Concerns: Feels Safe At This Time Childhood Exposure to Second-Hand Smoke: Yes (parent smoked) Dental Care, Regularly: Yes Sunscreen Use: Yes (occasionally) Assistive Devices: Walker Review of Systems A total of 10 systems reviewed and were otherwise negative All systems reviewed & are unremarkable except as noted in HPI & below Physical Exam Vital Signs Vital Signs - 24 hr 04/18/22 22:30 04/19/22 00:00 04/19/22 00:00 Temperature 36.4 C L 36.4 C L Temperature Source Oral Oral Pulse Rate Pulse Rate [Finger] 58 L 56 L 58 L Pulse Rhythm [Finger] Regular Regular Regular Pulse Strength [Finger] Normal Normal Normal Respiratory Rate 16 16 16 Respiratory Effort / Characteristics Non-Labored Spontaneous Non-Labored Spontaneous Non-Labored Spontaneous Respiratory Depth Normal Normal Normal Respiratory Pattern Regular Regular Blood Pressure [Left Arm] 127/86 133/87 133/87 Blood Pressure Mean [Left Arm] 99 102 102 Blood Pressure Position [Left Arm] Lying Lying Pulse Oximetry 97 97 Oxygen Delivery Method Room Air Room Air 04/19/22 08:01 04/19/22 13:44 04/19/22 13:17 Temperature 36.7 C 36.5 C Temperature Source Oral Oral Pulse Rate 55 L Pulse Rate [Finger] 53 L 57 L Pulse Rhythm [Finger] Pulse Strength [Finger] Respiratory Rate 18 14 Respiratory Effort / Characteristics Non-Labored Spontaneous Respiratory Depth Normal Respiratory Pattern Regular Blood Pressure [Left Arm] 122/74 125/74 Blood Pressure Mean [Left Arm] 90 91 Blood Pressure Position [Left Arm] Semi-fowlers Semi-fowlers Pulse Oximetry 96 93 Oxygen Delivery Method Room Air Room Air 04/19/22 14:18 Temperature Temperature Source Pulse Rate 56 L Pulse Rate [Finger] Pulse Rhythm [Finger] Pulse Strength [Finger] Respiratory Rate Respiratory Effort / Characteristics Respiratory Depth Respiratory Pattern Blood Pressure [Left Arm] Blood Pressure Mean [Left Arm] Blood Pressure Position [Left Arm] Pulse Oximetry Oxygen Delivery Method GENERAL: alert, well appearing, well nourished, no distress, non-toxic EYE EXAM: normal conjunctiva, PERRL and EOM's grossly intact OROPHARYNX: no exudate, no erythema, lips, buccal mucosa, and tongue normal and mucous membranes are moist NECK: supple, no nuchal rigidity, no adenopathy, non-tender LUNGS: Clear to auscultation. Normal chest wall mechanics, no w/r/r HEART: no murmurs, S1 normal and S2 normal, pacemaker noted left anterior superior chest wall ABDOMEN: abdomen soft, non-tender, normo-active bowel sounds, no masses, no rebound or guarding. BACK: Back is symmetrical on inspection and there is no deformity, no midline tenderness, no CVA tenderness. SKIN: no rashes and no bruising UPPER EXTREMITIES: upper extremities are grossly normal. FROM, nml pulses b/l. LOWER EXTREMITIES: No pitting edema. FROM, nml pulses b/l. Chronic appearing deformities of toes bilaterally, slight cyanotic appearance with surrounding edema noted to the plantar aspect of the right great toe slightly laterally, this area is tender to palpation, no other obvious wounds or open sores, pulses otherwise palpable, sensation intact bilaterally NEURO EXAM: Normal sensorium, cranial nerves II-XII grossly intact, normal speech, no gross weakness of arms, no gross weakness of legs. Gross sensation intact. Course Administered Medications Acetaminophen (Acetaminophen 325 Mg Tab) 650 mg PO Q4 PRN PRN Reason: Pain Stop: 05/19/22 00:18 Last Admin: 04/19/22 13:39 Dose: 650 mg Documented By: ALECIA Amiodarone HCl (Amiodarone 200 Mg Tab) 200 mg PO DAILY [facility] Stop: 05/19/22 08:59 Last Admin: 04/19/22 09:05 Dose: 200 mg Documented By: GAUTAM Heparin Sodium/Dextrose (Heparin Sodium/Dextrose) 25,000 units in 500 mls @ 13 mls/hr IV .Q24H [facility]; Protocol Stop: 05/19/22 00:18 Last Titration: 04/19/22 19:05 Dose: 650 units/hr, 13 mls/hr Documented By: ALECIA Co-signed By: ESTELLE Admin: 04/19/22 10:32 Dose: 600 units/hr, 12 mls/hr Documented By: GAUTAM Co-signed By: AV Titration: 04/19/22 10:00 Dose: 600 units/hr, 12 mls/hr Documented By: GAUTAM Co-signed By: AV Titration: 04/19/22 08:10 Dose: 0 units/hr, 0 mls/hr Documented By: GAUTAM Co-signed By: CHRISTIE Admin: 04/19/22 01:04 Dose: 850 units/hr, 17 mls/hr Documented By: JAIRON Co-signed By: VESTA Lactated Ringer's (Lr) 1,000 mls @ 80 mls/hr IV .[id number] [facility] Stop: 04/20/22 00:44 Last Admin: 04/19/22 13:24 Dose: 80 mls/hr Documented By: MARGE Levothyroxine Sodium (Levothyroxine Sodium 100 Mcg Tablet) 100 mcg PO DAILYBB [facility] Stop: 05/19/22 06:29 Last Admin: 04/19/22 06:19 Dose: 100 mcg Documented By: JAIRON Metoprolol Succinate (Metoprolol Succ 25mg Ext Rel Tab) 25 mg PO DAILY [facility] Stop: 05/19/22 08:59 Last Admin: 04/19/22 10:02 Dose: 25 mg Documented By: GAUTAM Pantoprazole Sodium (Pantoprazole 40 Mg Tab) 40 mg PO AC@0730,1630 [facility] Stop: 05/19/22 07:29 Last Admin: 04/19/22 17:03 Dose: 40 mg Documented By: Admin: 04/19/22 06:19 Dose: 40 mg Documented By: JAIRON Prednisone (Prednisone 5 Mg Tab) 5 mg PO DAILY [facility] Stop: 05/19/22 08:59 Last Admin: 04/19/22 09:05 Dose: 5 mg Documented By: GAUTAM Rotigotine (Rotigotine Patch 1mg/24hrs) 2 patch TD DAILY [facility] Stop: 05/19/22 17:59 Last Admin: 04/19/22 19:06 Dose: 2 patch Documented By: ALECIA Thiamine HCl (Thiamine Hcl 100 Mg Tab) 100 mg PO DAILY [facility] Stop: 05/19/22 08:59 Last Admin: 04/19/22 10:03 Dose: 100 mg Documented By: GAUTAM Tramadol HCl (Tramadol Hcl 50 Mg Tablet) 50 mg PO Q6H PRN PRN Reason: Pain Stop: 05/19/22 00:18 Last Admin: 04/19/22 20:12 Dose: 50 mg Documented By: ESTELLE Discontinued Medications Aspirin (Aspirin 81 Mg Chew) 81 mg PO DAILY [facility] Stop: 05/19/22 08:59 Last Admin: 04/19/22 09:59 Dose: 81 mg Documented By: GAUTAM Atorvastatin Calcium (Atorvastatin 40 Mg Tab) 80 mg PO NOW STA Stop: 04/18/22 22:40 Last Admin: 04/18/22 23:17 Dose: 80 mg Documented By: MEE Clopidogrel Bisulfate (Clopidogrel Bisulfate 300 Mg Tab) 300 mg PO NOW STA Stop: 04/19/22 13:35 Last Admin: 04/19/22 15:45 Dose: 300 mg Documented By: ALECIA Hydroxyzine HCl (Hydroxyzine Hcl 25 Mg Tab) 25 mg PO NOW STA Stop: 04/18/22 22:40 Last Admin: 04/18/22 22:56 Dose: 25 mg Documented By: MEE Sodium Chloride (Nss) 500 mls @ 80 mls/hr IV .Q6H15M [facility] Stop: 05/18/22 16:44 Last Admin: 04/19/22 16:49 Dose: Not Given Documented By: Infusion: 04/19/22 01:14 Dose: 0 mls/hr Documented By: Infusion: 04/18/22 22:23 Dose: 0 mls/hr Documented By: Admin: 04/18/22 17:33 Dose: 80 mls/hr Documented By: GAUTAM Lactated Ringer's (Lr) 1,000 mls @ 100 mls/hr IV .Q10H [facility] Stop: 04/19/22 21:53 Last Infusion: 04/19/22 05:59 Dose: 0 mls/hr Documented By: Admin: 04/19/22 01:03 Dose: 80 mls/hr Documented By: JAIRON Famotidine 20 mg/ Syringe 5 mls @ 2.5 mls/min IV NOW ONE Stop: 04/19/22 17:01 Last Admin: 04/19/22 17:10 Dose: 2.5 mls/min Documented By: ANG Conroy (Order Awaiting Action: Rotigotine 1 Mg/24 Hour Patch 24 Hour) 1 each N/A QS [facility] Stop: 05/19/22 07:59 Last Admin: 04/19/22 16:42 Dose: Not Given Documented By: Admin: 04/19/22 16:42 Dose: Not Given Documented By: ES Miscellaneous (Stop Order) 1 each N/A ONE ONE Stop: 04/19/22 18:01 Last Admin: 04/19/22 17:03 Dose: Not Given Documented By: ES Morphine Sulfate (Morphine Sulfate 2 Mg/Ml Carp) 2 mg IV NOW STA Stop: 04/19/22 16:11 Last Admin: 04/19/22 16:23 Dose: 2 mg Documented By: [employer] Morphine Sulfate (Morphine Sulfate 2 Mg/Ml Carp) 2 mg IV NOW STA Stop: 04/19/22 16:40 Last Admin: 04/19/22 17:02 Dose: Not Given Documented By: ES Nitroglycerin (Nitroglycerin Sl 0.4 Mg/Tab Tab) 0.4 mg SL NOW STA Stop: 04/19/22 16:11 Last Admin: 04/19/22 16:22 Dose: 0.4 mg Documented By: ALECIA Potassium Chloride (Potassium Chloride Crtab 20 Meq Tabcr) 20 meq PO NOW STA Stop: 04/19/22 12:49 Last Admin: 04/19/22 13:24 Dose: 20 meq Documented By: MARGE Ticagrelor (Ticagrelor 90 Mg Tab) 90 mg PO NOW STA Stop: 04/18/22 22:40 Last Admin: 04/18/22 22:56 Dose: 90 mg Documented By: MEE Tramadol HCl (Tramadol Hcl 50 Mg Tablet) 50 mg PO NOW STA Stop: 04/18/22 22:40 Last Admin: 04/18/22 22:55 Dose: 50 mg Documented By: MEE Medical Decision Making Differential Diagnosis Thrombosis, embolic event, acute arterial occlusion or insufficiency, CVA, ICH, dysrhythmia, infection, as well as others were considered Medical Records Attestation: I reviewed the patient's medical records. Home Medications Current Medication List: was personally reviewed by me Laboratory Data Attestation: I reviewed the patient's lab results. Result diagrams: 04/19/22 06:48 04/19/22 06:48 Lab Results 04/18/22 04/18/22 04/18/22 Range/Units 15:22 15:22 15:22 WBC 6.81 (4.8-10.8) K/ul RBC 3.11 L (3.93-5.22) M/uL Hgb 9.4 L (12.0-16.0) g/dl Hct 29.4 L (34.1-44.9) % MCV 94.5 (80.0-100.0) fL MCH 30.2 (25.0-34.0) pg MCHC 32.0 (32.0-36.0) g/dL RDW Std Deviation 54.4 H (36.4-46.3) fL RDW Coeff of Sachin 16.6 H (11.5-14.5) % Plt Count 298 (130-400) K/uL MPV 8.3 L (9.4-12.3) fL Immature Gran % (Auto) 1.8 % Neut % (Auto) 78.4 % Lymph % (Auto) 13.4 % [place] % (Auto) 5.7 % Eos % (Auto) 0.4 % Baso % (Auto) 0.3 % Neut # (Auto) 5.34 (1.4-6.5) K/uL Lymph # (Auto) 0.91 L (1.2-3.4) K/uL [place] # (Auto) 0.39 (0.24-0.82) K/uL Eos # (Auto) 0.03 (0-0.50) K/uL Baso # (Auto) 0.02 (0-0.2) K/uL Immature Gran # (Auto) 0.12 H (0.00-0.02) K/uL PT 16.1 H (9.0-12.0) Seconds INR 1.5 H (0.9-1.1) APTT 30.2 (21.0-31.0) Seconds PTT Ratio 1.1 Sodium 127 L (136-145) mmol/L Potassium 4.4 (3.5-5.1) mmol/L Chloride 93 L (98-107) mmol/L Carbon Dioxide 17 L (21-32) mmol/L Anion Gap 17 H (3-11) BUN 46 H (6-23) mg/dl Creatinine 1.87 H (0.6-1.2) mg/dl Est Cr Clr Drug Dosing Not Reportable Est GFR ( Amer) 29.1 ml/min Est GFR (Non-Af Amer) 25.1 ml/min BUN/Creatinine Ratio 24.6 H (10-20) Glucose 92 (70-99(Fasting)) mg/dl Lactate (0.4-2.0) mmol/L Calcium 9.0 (8.5-10.1) mg/dl Magnesium (1.7-2.4) mg/dl Iron (35-150) mcg/dl TIBC (250-450) mcg/dl Unsaturated IBC (155-355) mcg/dl Transferrin % Sat (15-50) % Ferritin (8-388) ng/ml Total Bilirubin 0.8 (0.2-1.0) mg/dl AST 38 (13-39) U/L ALT 28 (7-52) U/L Alkaline Phosphatase 111 H (34-104) U/L Troponin I High Sens 44.2 H D (0-14) pg/ml Total Protein 6.8 (6.0-8.3) gm/dl Albumin 3.7 (3.4-5.0) gm/dl Globulin 3.1 (2.5-4.0) gm/dl Albumin/Globulin Ratio 1.2 (0.9-2) SARS-CoV-2, RNA, NAAT (NEGATIVE) 04/18/22 04/19/22 04/19/22 Range/Units 21:50 00:34 00:42 WBC (4.8-10.8) K/ul RBC (3.93-5.22) M/uL Hgb (12.0-16.0) g/dl Hct (34.1-44.9) % MCV (80.0-100.0) fL MCH (25.0-34.0) pg MCHC (32.0-36.0) g/dL RDW Std Deviation (36.4-46.3) fL RDW Coeff of Sachin (11.5-14.5) % Plt Count (130-400) K/uL MPV (9.4-12.3) fL Immature Gran % (Auto) % Neut % (Auto) % Lymph % (Auto) % [place] % (Auto) % Eos % (Auto) % Baso % (Auto) % Neut # (Auto) (1.4-6.5) K/uL Lymph # (Auto) (1.2-3.4) K/uL [place] # (Auto) (0.24-0.82) K/uL Eos # (Auto) (0-0.50) K/uL Baso # (Auto) (0-0.2) K/uL Immature Gran # (Auto) (0.00-0.02) K/uL PT (9.0-12.0) Seconds INR (0.9-1.1) APTT (21.0-31.0) Seconds PTT Ratio Sodium (136-145) mmol/L Potassium (3.5-5.1) mmol/L Chloride (98-107) mmol/L Carbon Dioxide (21-32) mmol/L Anion Gap (3-11) BUN (6-23) mg/dl Creatinine (0.6-1.2) mg/dl Est Cr Clr Drug Dosing Est GFR ( Amer) ml/min Est GFR (Non-Af Amer) ml/min BUN/Creatinine Ratio (10-20) Glucose (70-99(Fasting)) mg/dl Lactate 3.2 H* (0.4-2.0) mmol/L Calcium (8.5-10.1) mg/dl Magnesium 2.0 (1.7-2.4) mg/dl Iron (35-150) mcg/dl TIBC (250-450) mcg/dl Unsaturated IBC (155-355) mcg/dl Transferrin % Sat (15-50) % Ferritin (8-388) ng/ml Total Bilirubin (0.2-1.0) mg/dl AST (13-39) U/L ALT (7-52) U/L Alkaline Phosphatase (34-104) U/L Troponin I High Sens 48.4 H (0-14) pg/ml Total Protein (6.0-8.3) gm/dl Albumin (3.4-5.0) gm/dl Globulin (2.5-4.0) gm/dl Albumin/Globulin Ratio (0.9-2) SARS-CoV-2, RNA, NAAT NEGATIVE (NEGATIVE) 04/19/22 04/19/22 04/19/22 Range/Units 00:51 00:51 06:48 WBC 8.06 8.11 (4.8-10.8) K/ul RBC 3.05 L 2.93 L (3.93-5.22) M/uL Hgb 9.4 L 9.0 L (12.0-16.0) g/dl Hct 28.5 L 26.6 L (34.1-44.9) % MCV 93.4 90.8 (80.0-100.0) fL MCH 30.8 30.7 (25.0-34.0) pg MCHC 33.0 33.8 (32.0-36.0) g/dL RDW Std Deviation 54.0 H 51.7 H (36.4-46.3) fL RDW Coeff of Sachin 16.9 H 16.6 H (11.5-14.5) % Plt Count 296 251 (130-400) K/uL MPV 8.6 L 8.3 L (9.4-12.3) fL Immature Gran % (Auto) 1.1 % Neut % (Auto) 60.8 % Lymph % (Auto) 26.8 % [place] % (Auto) 8.7 % Eos % (Auto) 2.4 % Baso % (Auto) 0.2 % Neut # (Auto) 4.90 (1.4-6.5) K/uL Lymph # (Auto) 2.16 (1.2-3.4) K/uL [place] # (Auto) 0.70 (0.24-0.82) K/uL Eos # (Auto) 0.19 (0-0.50) K/uL Baso # (Auto) 0.02 (0-0.2) K/uL Immature Gran # (Auto) 0.09 H (0.00-0.02) K/uL PT 15.6 H (9.0-12.0) Seconds INR 1.5 H (0.9-1.1) APTT 31.6 H (21.0-31.0) Seconds PTT Ratio 1.1 Sodium (136-145) mmol/L Potassium (3.5-5.1) mmol/L Chloride (98-107) mmol/L Carbon Dioxide (21-32) mmol/L Anion Gap (3-11) BUN (6-23) mg/dl Creatinine (0.6-1.2) mg/dl Est Cr Clr Drug Dosing Est GFR ( Amer) ml/min Est GFR (Non-Af Amer) ml/min BUN/Creatinine Ratio (10-20) Glucose (70-99(Fasting)) mg/dl Lactate (0.4-2.0) mmol/L Calcium (8.5-10.1) mg/dl Magnesium (1.7-2.4) mg/dl Iron (35-150) mcg/dl TIBC (250-450) mcg/dl Unsaturated IBC (155-355) mcg/dl Transferrin % Sat (15-50) % Ferritin (8-388) ng/ml Total Bilirubin (0.2-1.0) mg/dl AST (13-39) U/L ALT (7-52) U/L Alkaline Phosphatase (34-104) U/L Troponin I High Sens (0-14) pg/ml Total Protein (6.0-8.3) gm/dl Albumin (3.4-5.0) gm/dl Globulin (2.5-4.0) gm/dl Albumin/Globulin Ratio (0.9-2) SARS-CoV-2, RNA, NAAT (NEGATIVE) 04/19/22 04/19/22 04/19/22 Range/Units 06:48 06:48 06:48 WBC (4.8-10.8) K/ul RBC (3.93-5.22) M/uL Hgb (12.0-16.0) g/dl Hct (34.1-44.9) % MCV (80.0-100.0) fL MCH (25.0-34.0) pg MCHC (32.0-36.0) g/dL RDW Std Deviation (36.4-46.3) fL RDW Coeff of Sachin (11.5-14.5) % Plt Count (130-400) K/uL MPV (9.4-12.3) fL Immature Gran % (Auto) % Neut % (Auto) % Lymph % (Auto) % [place] % (Auto) % Eos % (Auto) % Baso % (Auto) % Neut # (Auto) (1.4-6.5) K/uL Lymph # (Auto) (1.2-3.4) K/uL [place] # (Auto) (0.24-0.82) K/uL Eos # (Auto) (0-0.50) K/uL Baso # (Auto) (0-0.2) K/uL Immature Gran # (Auto) (0.00-0.02) K/uL PT (9.0-12.0) Seconds INR (0.9-1.1) APTT > 139.0 H* (21.0-31.0) Seconds PTT Ratio > 5.1 Sodium 128 L (136-145) mmol/L Potassium 3.3 L D (3.5-5.1) mmol/L Chloride 95 L (98-107) mmol/L Carbon Dioxide 21 (21-32) mmol/L Anion Gap 12 H (3-11) BUN 49 H (6-23) mg/dl Creatinine 1.75 H (0.6-1.2) mg/dl Est Cr Clr Drug Dosing 16.8 Est GFR ( Amer) 31.5 ml/min Est GFR (Non-Af Amer) 27.2 ml/min BUN/Creatinine Ratio 28.0 H (10-20) Glucose 68 L (70-99(Fasting)) mg/dl Lactate (0.4-2.0) mmol/L Calcium 8.4 L (8.5-10.1) mg/dl Magnesium (1.7-2.4) mg/dl Iron 55 (35-150) mcg/dl TIBC 236 L (250-450) mcg/dl Unsaturated IBC 181 (155-355) mcg/dl Transferrin % Sat 23 (15-50) % Ferritin 758.2 H (8-388) ng/ml Total Bilirubin (0.2-1.0) mg/dl AST (13-39) U/L ALT (7-52) U/L Alkaline Phosphatase (34-104) U/L Troponin I High Sens (0-14) pg/ml Total Protein (6.0-8.3) gm/dl Albumin (3.4-5.0) gm/dl Globulin (2.5-4.0) gm/dl Albumin/Globulin Ratio (0.9-2) SARS-CoV-2, RNA, NAAT (NEGATIVE) 04/19/22 04/19/22 Range/Units 09:03 09:03 WBC (4.8-10.8) K/ul RBC (3.93-5.22) M/uL Hgb (12.0-16.0) g/dl Hct (34.1-44.9) % MCV (80.0-100.0) fL MCH (25.0-34.0) pg MCHC (32.0-36.0) g/dL RDW Std Deviation (36.4-46.3) fL RDW Coeff of Sachin (11.5-14.5) % Plt Count (130-400) K/uL MPV (9.4-12.3) fL Immature Gran % (Auto) % Neut % (Auto) % Lymph % (Auto) % [place] % (Auto) % Eos % (Auto) % Baso % (Auto) % Neut # (Auto) (1.4-6.5) K/uL Lymph # (Auto) (1.2-3.4) K/uL [place] # (Auto) (0.24-0.82) K/uL Eos # (Auto) (0-0.50) K/uL Baso # (Auto) (0-0.2) K/uL Immature Gran # (Auto) (0.00-0.02) K/uL PT (9.0-12.0) Seconds INR (0.9-1.1) APTT 73.6 H* (21.0-31.0) Seconds PTT Ratio 2.7 Sodium (136-145) mmol/L Potassium (3.5-5.1) mmol/L Chloride (98-107) mmol/L Carbon Dioxide (21-32) mmol/L Anion Gap (3-11) BUN (6-23) mg/dl Creatinine (0.6-1.2) mg/dl Est Cr Clr Drug Dosing Est GFR ( Amer) ml/min Est GFR (Non-Af Amer) ml/min BUN/Creatinine Ratio (10-20) Glucose (70-99(Fasting)) mg/dl Lactate 1.5 (0.4-2.0) mmol/L Calcium (8.5-10.1) mg/dl Magnesium (1.7-2.4) mg/dl Iron (35-150) mcg/dl TIBC (250-450) mcg/dl Unsaturated IBC (155-355) mcg/dl Transferrin % Sat (15-50) % Ferritin (8-388) ng/ml Total Bilirubin (0.2-1.0) mg/dl AST (13-39) U/L ALT (7-52) U/L Alkaline Phosphatase (34-104) U/L Troponin I High Sens (0-14) pg/ml Total Protein (6.0-8.3) gm/dl Albumin (3.4-5.0) gm/dl Globulin (2.5-4.0) gm/dl Albumin/Globulin Ratio (0.9-2) SARS-CoV-2, RNA, NAAT (NEGATIVE) Imaging Data Radiologist's Impression: Head CT 04/18/22 16:39 CT head/brain wo con CLINICAL HISTORY: 81 years-old Female with slurred speech. Acute strokelike symptoms TECHNIQUE: Multiple axial CT images of the head were obtained without contrast. A dose lowering technique was utilized adhering to the principles of ALARA. CT DOSE: 537.48 mGy.cm COMPARISON: None. FINDINGS: No acute intracranial hemorrhage, midline shift, intracranial mass, hydrocephalus, territorial ischemia or abnormal extra-axial collection. Mild involutional changes. White matter hypodensities suggest chronic microvascular ischemic disease. Cerebral vascular calcifications. Study is mildly motion degraded. The calvarium is intact. Prior bilateral lens repair. The paranasal sinuses, mastoid air cells, and middle ear cavities are clear. IMPRESSION: No acute intracranial abnormality. ACT 112: Negative or not required by law. The above report was generated using voice recognition software. It may contain grammatical, syntax or spelling errors. Electronically signed by: Ted Wesley M.D. 04/18/2022 5:36 PM Ultrasound arterial right lower extremity: Scattered moderate atherosclerotic disease involving the arteries of the right lower extremities with areas of biphasic flow suggestive of moderate disease and areas of moderate narrowings. More severe disease involving the right peroneal artery and distal anterior tibial artery along with dorsalis pedis with possible areas of high-grade stenosis at these levels. Radiologist: Joycelyn Cornelius MD ECG Data Attestation: I personally reviewed and interpreted this ECG as follows: Indication: + other Rate (beats per minute): 57 Rhythm: + sinus bradycardia ECG Intervals/blocks: + Right Bundle branch block and + Prolonged QT ECG [place]: + Left axis deviation ECG ST segments: + Nonspecific ST abnormalities MDM Narrative An order was placed for continuous cardiac monitoring. The monitor shows a rate of _58_ with _sinus bradycardia__ rhythm. This is a 81 yo female who presents with several complaints including discoloration of her right foot and family's concern for recent slurred speech. Both of these had improved by the time of her presentation to the ER. VS stable and pt afebrile. Pulses faint but palpable in the LE. No pain out of proportion or paresthesias. Minimal discoloration to lateral plantar aspect of great toe distally. Neuro exam without focal deficits. Labs with worsening hyponatremia and increasing creatinine. VS stable throughout. CT head without contrast performed due to GFR. US right LE with areas of high grade stenosis, however no mention by overnight rad of previously noted R ext fem artery thrombosis. Patient does take ASA and brilinta daily. Case discussed with hospitalist for additional evaluation and treatment. Patient and family made aware of all results, verbalized understanding. Impression & Plan Arterial insufficiency of lower extremity, Hyponatremia, Dysarthria, Creatinine elevation Discharge Plan Visit Data Chief Complaint: Cardiac Assessment Stated Complaint: BLUE FOOT, SLURRED SPEECH, SOB, PT OF DR FUNES ED Provider: Shruthi Dunbar Discharge Problem: Arterial insufficiency of lower extremity, Hyponatremia, Dysarthria, Creatinine elevation Patient Disposition: Admitted As Inpatient Discharge Instructions Interventions: ED Discharge Assessment Last Done: 04/18/22 23:42
[2022-04-18] MEDS: SODIUM CHLORIDE 0.9% 500 ML IV SCH (17:33)
--- NOTE | 2022-04-18 17:39 | CT Scan Report ---
CT head/brain wo con CLINICAL HISTORY: 81 years-old Female with slurred speech. Acute strokelike symptoms TECHNIQUE: Multiple axial CT images of the head were obtained without contrast. A dose lowering tech nique was utilized adhering to the principles of ALARA. CT DOSE: 537.48 mGy.cm COMPARISON: None. FINDINGS: No acute intracranial hemorrhage, midline shift, intracranial mass, hydrocephalus, territorial ischem ia or abnormal extra-axial collection. Mild involutional changes. White matter hypodensities suggest chronic microvascular ischemic disease. Cerebral vascular calcifications. Study is mildly motion degr aded. The calvarium is intact. Prior bilateral lens repair. The paranasal sinuses, mastoid air cells, and m iddle ear cavities are clear. IMPRESSION: No acute intracranial abnormality. ACT 112: Negative or not required by law. The above report was generated using voice recognition software. It may contain grammatical, syntax o r spelling errors. Electronically signed by: Ted Wesley M.D. 04/18/2022 5:36 PM
[2022-04-18] MEDS ORDERED: TICAGRELOR 90 MG TAB PO STA (22:39)
[2022-04-18] MEDS ORDERED: hydrOXYzine HCl 25 MG TAB PO STA (22:39)
[2022-04-18] MEDS ORDERED: traMADol HCL 50 MG TABLET PO STA (22:39)
[2022-04-18] MEDS ORDERED: ATORVASTATIN 40 MG TAB PO STA (22:39)
--- NOTE | 2022-04-18 22:41 | History & Physical Report ---
Date of Service April 18, 2022 Assessment & Plan (1) Embolic disease of toe: Plan: Palpable pulses, extremities are warm. Arterial ultrasound as above We will initiate heparin for anticoagulation Hold aspirin and Brilinta Cardiology consultation appreciated Check 2D echo (2) [id number] kidney injury: Plan: Gentle IV hydration LR at 80 mL/h x 1 L Avoid nephrotoxic agents Repeat chemistry in the (3) Chronic systolic CHF (congestive heart failure): Plan: Compensated. Check 2D echo Continue home metoprolol (4) CAD (coronary artery disease): Plan: Status post ME angioplasty with stent placement to circumflex. Patient with pos t ME VT status post ICD placement now on amiodarone therapy Continue aspirin Continue atorvastatin 80 Continue metoprolol Continue amiodarone (5) Hypertension: Plan: Blood pressure stable Continue home medications (6) Hypothyroidism: Plan: Chronic. Continue Synthroid 100 mcg p.o. daily History of Present Illness Chief Complaint: Blue toes Primary Care Provider: Maddison Metzger MD Shruthi Brannon is a 81-year-old female with history of coronary artery disease status post ME 02/25/2023 while in [place]. She had PCI of the circumflex with stent placement. Post ME ventricular arrhythmia status post cardioversion with subsequent placement of AICD. Ischemic cardiomyopathy with last recorded EF of 35%. Patient follows with cardiology as well as heart failure clinic. She noted dusky discoloration of the tip of the right great toe on 04/15/2022 associated with some mild tenderness. She was seen in heart failure clinic as well as vascular medicine clinic on 04/16/2022. Concerns for possible embolic process. She had an in office arterial duplex which showed focal, mobile thrombus of the right external iliac artery thought to be the culprit for the embolism to her toe. The case was discussed with Dr. Bose. Decision not to proceed with full dose anticoagulation at that time given patient's age, anemia and frailty. She was continued on dual antiplatelet therapy with aspirin and Brilinta. She was instructed to return to care should her symptoms worsen. Patient noted yesterday worsening of the dusky discoloration, now involving the tips of all toes on the right and left as well as a portion of the dorsal surface of the feet. Additionally, there was some question of slurred speech over the last 2 days. Daughter reports the patient was speaking as if her dentures were not fitting properly. The speech seemed slightly garbled but not every word and would occur intermittently. No complaint of fever, chills, headache, focal deficit. No abdominal pain, vomiting. Patient had some nausea with dry heaving this morning. She has baseline intermittent shortness of breath and "twinges of chest pain" which she is not concerned about at this time. She denies edema, orthopnea or weight gain. She continues on a low-sodium diet. Is compliant with medications In the ER patient is afebrile, hemodynamically stable. ER course: Normal saline, tramadol, hydroxyzine, Brilinta, Lipitor Allergies Allergy/AdvReac Type Severity Reaction Status Date / Time gabapentin Allergy Unknown Verified 04/18/22 19:05 Home Medications Medication Instructions Recorded Confirmed Type acetaminophen 325 mg tablet 650 mg PO Q4 PRN Pain 03/19/22 04/18/22 History (Tylenol) amiodarone 200 mg tablet 200 mg PO DAILY 03/19/22 04/18/22 History aspirin 81 mg chewable tablet 81 mg PO DAILY 03/19/22 04/18/22 History docusate sodium 100 mg capsule 100 mg PO BID 03/19/22 04/18/22 History ferrous sulfate 325 mg (65 mg 325 mg PO DAILY 03/19/22 04/18/22 History iron) tablet (iron) levothyroxine 100 mcg tablet 100 mcg PO DAILY 03/19/22 04/18/22 History multivitamin 1 tab PO DAILY 03/19/22 04/18/22 History pantoprazole 40 mg tablet,delayed 40 mg PO BID 03/19/22 04/18/22 History release prednisone 5 mg tablet 5 mg PO DAILY 03/19/22 04/18/22 History ticagrelor 90 mg tablet (Brilinta) 90 mg PO Q12 03/19/22 04/18/22 History rotigotine 1 mg/24 hour 2 mg transdermal HS #90 ea 03/22/22 04/18/22 Rx transdermal 24 hour patch hydroxyzine HCl 25 mg tablet 25 mg PO HS PRN Anxiety 04/08/22 04/18/22 History metoprolol succinate 25 mg 25 mg PO DAILY 04/08/22 04/18/22 History tablet,extended release 24 hr omeprazole 20 mg capsule,delayed 20 mg PO DAILY 04/08/22 04/18/22 History release thiamine HCl (vitamin B1) 100 mg 100 mg PO DAILY 04/08/22 04/18/22 History tablet furosemide 40 mg tablet 40 mg PO DAILY PRN weight gain 04/14/22 04/18/22 History senna-docusate sodium tablet 1 tab PO BID PRN Constipation 04/14/22 04/18/22 History tramadol 50 mg tablet 50 mg PO Q6H PRN Pain #240 tabs 04/14/22 04/18/22 Rx atorvastatin 80 mg tablet 80 mg PO DAILY #90 tabs 04/16/22 04/18/22 Rx Past Med/Surg History Medical History Acid reflux Acute encephalopathy Acute hyponatremia Acute ME Acute UTI CAD (coronary artery disease) ME in [place] in 02/2022. 1 stent placed (believe LCx, but not sure). 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 Dehydration, mild DVT prophylaxis Dysuria Elevated troponin Hiatal hernia History of Hodgkin's lymphoma S/P RADIATION/CHEMO (2000) History of pelvic fracture Hyperlipidemia Hypertension Hypothyroidism Ischemic cardiomyopathy Mixed stress and urge urinary incontinence Nausea & vomiting Restless leg syndrome Rheumatoid arthritis ON PLAQUENIL AND CHRONIC PREDNISONE 7.5MG DAILY Sciatica Scoliosis Stage 3b chronic kidney disease Ventricular tachycardia Surgical History H/O foot surgery 2ND RT TOE REMOVED History of bilateral cataract extraction RIGHT CATARACT EXTRACTION WITH IOL= 04/05/18= [facility] SEDATION AT [facility] History of colonoscopy History of gynecologic surgery ANTERIOR AND POSTERIOR REPAIR - colporrhaphy (for pelvic relaxation) History of removal of cyst HEAD (BENIGN) History of tonsillectomy History of tooth extraction History of total knee replacement RT History of urologic surgery URETEROLYSIS- 04/1995 [facility] S/P coronary artery stent placement S/P ICD (internal cardiac defibrillator) procedure S/P vaginal hysterectomy Family History Mother , age 80 Cardiac disorder Family history of lung cancer Brother Diabetes Family history of lung cancer Family history of diabetes mellitus Daughter Breast cancer Father , age 57 Cardiac disorder Grandmother Diabetes Aunt Ovarian cancer paternal aunt Grandmother (Paternal) Family history of diabetes mellitus Other Cancer Heart disease No family history of adverse response to anesthesia No family history of bleeding disorder Denies family history of Colon cancer Colorectal cancer Social History Smoking Status: Never smoker Tobacco Type: Cigarettes Cigarettes Per Day: QUIT + 30 YEARS AGO; Second Hand Exposure: No; Hx Alcohol Use: No Hx Substance Use: No Preferred Language: Pashto Communication Ability: Effective Visual Impairment: No Limitations Hearing Ability: Use of Hearing Aid District Court Judge Required: No Beliefs That Will Affect Care: None marital status: / Current Living Situation: Alone Current Living Situation Comment: home alone w/ daughter close & friends close. 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 [employer] Feels Safe at Home: Yes Childhood Exposure to Second-Hand Smoke: Yes (parent smoked) Dental Care, Regularly: Yes Sunscreen Use: Yes (occasionally) Assistive Devices: Brace/Splint/Immobilizer Review of Systems Review of Systems: All systems reviewed & are unremarkable except as noted in HPI & below Physical Exam Physical Exam: General: frail, elderly female patient resting comfortably, NAD, non-toxic in appearance, AA&O x 4 Skin: warm, dry, intact, no rashes or lesions HEENT: NC/AT, PERRL, EOMI, anicteric sclera, conjunctiva without injection, external ear normal to inspection and nontender, nares patent, moist mucus membranes, dentition intact, no oropharyngeal lesions, neck supple, trachea midline, no LAD, no thyromegaly, no JVD Heart: +S1/S2, regular, bradycardic, 4/6 blowing murmur at apex, no rubs or gallops, ICD in place. Pulses palpable in bilateral UE, femoral, L DP and PT and R PT. Feet are warm. Tip of great toe on right with small area of dusky discoloration, no ulceration Lungs: equal air entry bilaterally, no rales/rhonchi/wheezes Abd: +BS, soft, NT/ND, no masses/organomegaly/ascites Ext: warm, 2+ pulses in UE/LE bilaterally, no clubbing/cyanosis or edema, claw toe deformity Neuro: nonfocal, patient AA&O x 4, speech intact, no facial droop, moving all extremities on command with equal strength 5/5 Results & Data Results & Data ([facility]) Vital Signs (Past 12 Hours) Vital Signs Temp Pulse Pulse Resp BP BP Pulse Ox 04/18/22 22:30 58 L 16 127/86 04/18/22 20:57 59 L 18 133/68 98 04/18/22 18:30 60 18 126/76 96 04/18/22 16:29 60 18 147/77 H 97 04/18/22 15:03 37 C 79 18 130/87 100 O2 Del Method 04/18/22 22:30 04/18/22 20:57 04/18/22 18:30 Room Air 04/18/22 16:29 Room Air 04/18/22 15:03 Room Air Laboratory Results Laboratory Results WBC 6.81 K/ul (4.8-10.8) 04/18/22 15: RBC 3.11 M/uL (3.93-5.22) L 04/18/22 15:22 Hgb 9.4 g/dl (12.0-16.0) L 04/18/22 15:22 Hct 29.4 % (34.1-44.9) L 04/18/22 15: MCV 94.5 fL (80.0-100.0) 04/18/22 15: MCH 30.2 pg (25.0-34.0) 04/18/22 15: MCHC 32.0 g/dL (32.0-36.0) 04/18/22 15:22 RDW Std Deviation 54.4 fL (36.4-46.3) H 04/18/22 15:22 RDW Coeff of Sachin 16.6 % (11.5-14.5) H 04/18/22 15: Plt Count 298 K/uL (130-400) 04/18/22 15: MPV 8.3 fL (9.4-12.3) L 04/18/22 15:22 Immature Gran % (Auto) 1.8 % 04/18/22: Neut % (Auto) 78.4 % 04/18/22: Lymph % (Auto) 13.4 % 04/18/22:22 [place] % (Auto) 5.7 % 04/18/22 15:22 Eos % (Auto) 0.4 % 04/18/22 15:22 Baso % (Auto) 0.3 % 04/18/22 15:22 Neut # (Auto) 5.34 K/uL (1.4-6.5) 04/18/22 15:22 Lymph # (Auto) 0.91 K/uL (1.2-3.4) L 04/18/22 15:22 [place] # (Auto) 0.39 K/uL (0.24-0.82) 04/18/22 15:22 Eos # (Auto) 0.03 K/uL (0-0.50) 04/18/22 15:22 Baso # (Auto) 0.02 K/uL (0-0.2) 04/18/22 15: Immature Gran # (Auto) 0.12 K/uL (0.00-0.02) H 04/18/22 15:22 PT 16.1 Seconds (9.0-12.0) H 04/18/22 15:22 INR 1.5 (0.9-1.1) H 04/18/22 15:22 APTT 30.2 Seconds (21.0-31.0) 04/18/22 15:22 PTT Ratio 1.1 04/18/22 15:22 Sodium 127 mmol/L (136-145) L 04/18/22 15:22 Potassium 4.4 mmol/L (3.5-5.1) 04/18/22 15:22 Chloride 93 mmol/L (98-107) L 04/18/22 15:22 Carbon Dioxide 17 mmol/L (21-32) L 04/18/22 15:22 Anion Gap 17 (3-11) H 04/18/22 15:22 BUN 46 mg/dl (6-23) H 04/18/22 15:22 Creatinine 1.87 mg/dl (0.6-1.2) H 04/18/22 15:22 Est Cr Clr Drug Dosing Not Reportable 04/18/22 15:22 Est GFR ( Amer) 29.1 ml/min 04/18/22 15:22 Est GFR (Non-Af Amer) 25.1 ml/min 04/18/22 15:22 BUN/Creatinine Ratio 24.6 (10-20) H 04/18/22 15:22 Glucose 92 mg/dl (70-99(Fasting)) 04/18/22 15:22 Calcium 9.0 mg/dl (8.5-10.1) 04/18/22 15:22 Total Bilirubin 0.8 mg/dl (0.2-1.0) 04/18/22 15:22 AST 38 U/L (13-39) 04/18/22 15: ALT 28 U/L (7-52) 04/18/22 15:22 Alkaline Phosphatase 111 U/L (34-104) H 04/18/22 15:22 Troponin I High Sens 44.2 pg/ml (0-14) H D 04/18/22 15: Total Protein 6.8 gm/dl (6.0-8.3) 04/18/22 15: Albumin 3.7 gm/dl (3.4-5.0) 04/18/22 15: Globulin 3.1 gm/dl (2.5-4.0) 04/18/22 15:22 Albumin/Globulin Ratio 1.2 (0.9-2) 04/18/22 15:22 SARS-CoV-2, RNA, NAAT NEGATIVE (NEGATIVE) 04/18/22 21:[address] 04/18/22 16:39 CT head/brain wo con CLINICAL HISTORY: 81 years-old Female with slurred speech. Acute strokelike sym ptoms TECHNIQUE: Multiple axial CT images of the head were obtained without contrast. A dose lowering technique was utilized adhering to the principles of ALARA. CT DOSE: 537.48 mGy.cm COMPARISON: None. FINDINGS: No acute intracranial hemorrhage, midline shift, intracranial mass, hydrocephalus, territorial ischemia or abnormal extra-axial collection. Mild involutional changes. White matter hypodensities suggest chronic microvascular ischemic disease. Cerebral vascular calcifications. Study is mildly motion degraded. The calvarium is intact. Prior bilateral lens repair. The paranasal sinuses, mastoid air cells, and middle ear cavities are clear. IMPRESSION: No acute intracranial abnormality. ACT 112: Negative or not required by law. The above report was generated using voice recognition software. It may contain grammatical, syntax or spelling errors. Electronically signed by: Ted Wesley M.D. 04/18/2022 5:36 PM Diagnostic Findings Ultrasound arterial right lower extremity: Per stat radscattered moderate atherosclerotic disease involving the arteries of the right lower extremity with areas of biphasic flow suggestive of moderate disease and areas of moderate narrowing. More severe disease involving the right peroneal artery and distal anterior tibial artery along the dorsalis pedis with possible areas of high- grade stenosis at these levels. PG Care Time/CCT Total # of Minutes Spent Total Time Spent with Patient: Total time spent is greater than 50% in coordination of care (as documented) at patient's floor/unit and/or counseling patient: Coding Level of Care Code INT OBSERVATION CARE 70M LVL 3 Diagnoses Embolic disease of toe I74.3 [id number] kidney injury N17.9; N18.9 Chronic systolic CHF (congestive heart failure) I50.22 CAD (coronary artery disease) I25.10 Hypertension I10 Hypertension type: primary hypertension Hypothyroidism E03.9 Hypothyroidism type: acquired (1) Hypertension Hypertension type: primary hypertension Qualified Code(s): I10 - Essential (primary) hypertension (2) Hypothyroidism Hypothyroidism type: acquired Qualified Code(s): E03.9 - Hypothyroidism, unspecified
[2022-04-19] MEDS ORDERED: Heparin IV Adult Wt-Based Standard *NO* Bolus Protocol IV SCH (00:19)
[2022-04-19] MEDS ORDERED: LACTATED RINGER'S 1,000 ML IV SCH ×2 (00:19→12:15)
[2022-04-19] MEDS ORDERED: DOCUSATE SODIUM 100 MG CAP PO PRN (00:19)
[2022-04-19] MEDS ORDERED: ONDANSETRON INJ 2 MG/ML 2 ML VIAL IV PRN (00:19)
[2022-04-19] MEDS ORDERED: hydrOXYzine HCl 25 MG TAB PO PRN (00:19)
[2022-04-19] MEDS ORDERED: ACETAMINOPHEN 325 MG TAB PO PRN (00:19)
[2022-04-19] MEDS: HEPARIN SODIUM/DEXTROSE 25,000 UNITS/500 ML BAG IV SCH ×2 (01:04→10:32)
[2022-04-19 01:11] LABS: Basophils # (auto) 0.02 K/uL (0-0.2); Basophils % (auto) 0.2 %; Eosinophils # (auto) 0.19 K/uL (0-0.50); Eosinophils % (auto) 2.4 %; Hematocrit (blood only) 28.5 % (34.1-44.9); Hemoglobin 9.4 g/dl (12.0-16.0); Immature Granulocytes # (auto) 0.09 K/uL (0.00-0.02); Immature Granulocytes % (auto) 1.1 %; Lymphocytes # (auto) 2.16 K/uL (1.2-3.4); Lymphocytes % (auto) 26.8 %; Mean Corpuscular Hemoglobin 30.8 pg (25.0-34.0); Mean Corpuscular Volume 93.4 fL (80.0-100.0); Mean Platelet Volume 8.6 fL (9.4-12.3); Monocytes % (auto) 8.7 %; Neutrophils % (auto) 60.8 %; Platelet Count 296 K/uL (130-400); RDW Coefficient of Variation 16.9 % (11.5-14.5); Red Blood Count 3.05 M/uL (3.93-5.22); White Blood Count 8.06 K/ul (4.8-10.8)
[2022-04-19 01:16] LABS: Troponin I High Sensitivity 48.4 pg/ml (0-14)
[2022-04-19 01:31] LABS: INR 1.5 (0.9-1.1); Partial Thromboplastin Ratio 1.1; Partial Thromboplastin Time 31.6 Seconds (21.0-31.0); Prothrombin Time 15.6 Seconds (9.0-12.0)
[2022-04-19] MEDS: LEVOTHYROXINE SODIUM 100 MCG TABLET PO SCH (06:19)
[2022-04-19] MEDS: PANTOprazole 40 MG TAB PO SCH ×2 (06:19→17:03)
[2022-04-19 07:02] LABS: Hematocrit (blood only) 26.6 % (34.1-44.9); Mean Corpuscular Hemoglobin 30.7 pg (25.0-34.0); Mean Corpuscular Hgb Conc 33.8 g/dL (32.0-36.0); Mean Corpuscular Volume 90.8 fL (80.0-100.0); Mean Platelet Volume 8.3 fL (9.4-12.3); Platelet Count 251 K/uL (130-400); RDW Coefficient of Variation 16.6 % (11.5-14.5); RDW Standard Deviation 51.7 fL (36.4-46.3); Red Blood Count 2.93 M/uL (3.93-5.22); White Blood Count 8.11 K/ul (4.8-10.8)
[2022-04-19 07:49] LABS: Partial Thromboplastin Ratio > 5.1
--- NOTE | 2022-04-19 07:58 | Ultrasound Report ---
RIGHT LOWER EXTREMITY ARTERIAL DOPPLER ULTRASOUND CLINICAL HISTORY: discoloration right foot/toe COMPARISON STUDY: None available at time of interpretation. TECHNIQUE: Color and duplex Doppler sonography of the arterial system of the right lower extremity wa s performed. FINDINGS: Moderate atherosclerotic plaque within the right lower extremity is noted. No elevated [place] cities are identified. There is biphasic flow within the right common femoral, superficial femoral an d popliteal arteries. There is biphasic flow within the right posterior tibial artery as well. There is monophasic and biphasic flow within the right peroneal, dorsalis pedis and anterior tibial arterie s. IMPRESSION: 1. Moderate atherosclerotic plaque within the right lower extremity. 2. No elevated velocities to suggest a hemodynamically significant stenosis by sonography. 3. Predominantly biphasic flow within the right lower extremity. Monophasic flow within portions of t he right calf vessels, as above. ACT 112: Negative or not required by law. Electronically signed by: Wally Nichols M.D. 04/19/2022 7:57 AM
[2022-04-19 08:08] LABS: Partial Thromboplastin Time > 139.0 Seconds (21.0-31.0)
[2022-04-19 08:09] LABS: Calcium 8.4 mg/dl (8.5-10.1); Creatinine Clr Calc Pharmacy 16.8 ml/min; Est GFR (African American) 31.5 ml/min; Est GFR (Non-African American) 27.2 ml/min; Potassium 3.3 mmol/L (3.5-5.1)
[2022-04-19] MEDS ORDERED: ASPIRIN 81 MG CHEW PO SCH (09:00)
[2022-04-19] MEDS: predniSONE 5 MG TAB PO SCH (09:05)
[2022-04-19] MEDS: AMIODARONE 200 MG TAB PO SCH (09:05)
--- NOTE | 2022-04-19 09:41 | Hospitalist Progress Note ---
Date of Service April 19, 2022 Assessment & Plan (1) Embolic disease of toe: Plan: Recent NH/PCI in [facility] February 2022 with ICD placement for sustained Ventricular Arrhythmia. Lactic 3.2 on admit, normal on repeat w/ IVF Admitted in March for possible sepsis/acute cholecystitis with elevated LFTs, however patient reports when transferred to [place], felt sepsis 2nd to cardiogenic shock treated with milrinone gtt and diuretics and discharge to rehab 03/30 (reported had mottling of her right toes/extension up her foot at discharge) States was given lasix 40mg PO by [facility] for 2lb weight gain on tuesday Progression of pain/blue 1st toe on RIGHT FOOT had US with Dr Bose, which showed possible focal mobile thrombus of right external iliac artery responsible for embolus to her toe as cardiac cath in February performed via right POLITICAL THEORY PROFESSOR acess Arterial Duplex: * 1. Moderate atherosclerotic plaque within the right lower extremity * 2. No elevated velocities to suggest a hemodynamically significant stenosis by sonography. * 3. Predominantly biphasic flow within the right lower extremity. Monophasic flow within portions of the right calf vessels, as above. On Brilinta/Aspirin post PCI Discussed with Dr Bose given no Brilinta ordered -- was to be on as pirin/Brilinta post PCI On Heparin gtt Recommendations to continue patient on Eliquis and switch the Brilinta to Plavix Given Plavix/Brilinta not overlap, given loading dose 300mg x 1 now plavix, start 75mg plavix in am. DISCONTINUE ASPIRIN plans to d/c heparin gtt this evening and start Eliquis, reduced to 2.5mg BID based on kidney function given concerns for embolic phenomenon -- asked to velasquez check should continue for at least 3 months for possible POLITICAL THEORY PROFESSOR thrombus/emoboli No need for DVT/PE dosing per cardiology kidney function reduced but prior to recent events was much better Per discussion with cardiology, continue to hold Entresto, if still hypokalemic tomorrow can consider resuming her spironolactone continue to hold lasix, can resume as needed for weight >100lb at rehab 2D Echo Normal LV size, mild concentric LVH LVEF 40-45%. Akinetic inferolateral wall. severely hypokinetic inferior wall Borderline dilated RV, RV function mildly reduced Moderate Mitral regurgitation Borderline pulmonary hypertension (est PASP >35mmHg). Positive bubble study. No LV thrombus. Compared to study March 19, 2022, LV function slightly improved. Continue to monitor inpatient for any bleeding F/u Dr Bose, repeat arterial duplex 1 month Will need f/u CHF clinic as well (2) Ispqn-ev-qmolnzv kidney injury: Plan: 2nd to dehydration, given lasix at [facility] for 3lb weight gain holding lasix, IVF ordered Renal dose meds when able/avoid nephrotoxic agents when able BMP in AM (3) Chronic systolic CHF (congestive heart failure): Plan: Compensated. 2D echo as above Cards on consult Monitor weights/intake Continued on metoprolol Entresto and spirnolactone previously placed on hold -- continue to hold (resume spironolactone if K low in AM per cards) IVF as above, continue to hold lasix, resume if wt <100lb Monitor (4) CAD (coronary artery disease): Plan: Status post NH angioplasty with stent placement to circumflex. Patient with post NH VT status post ICD placement now on amiodarone therapy Aspirin/brilinta --> plavix/Eliquis as above continue amiodarone, atorvastatin, metoprolol No CP reported like prior NH this summer (5) Hypertension: Plan: Blood pressure stable 125/74 Continue metoprolol, other meds on hold as outlined (6) Hypothyroidism: Plan: Chronic, and maintained on synthroid 100mcg daily appears last TSH was elevated to 13.75 in march (was 11 prior in February) Will repeat level in AM, consider increasing her Synthroid dose (7) Discoloration of skin of toe: Plan: as above (8) Elevated transaminase level: Plan: ALP elevated -- see above, HIDA negative at [place] cardiogenic shock Improved on repeat, no abd pain (9) S/P ICD (internal cardiac defibrillator) procedure: Plan: noted, placed for V arrhythmia s/p PCI for NH in [place] (10) S/P coronary artery stent placement: (11) Stage 3b chronic kidney disease: Plan: prior to NH/recent hospitalizations Cr was closer to 1 (up to 2.24 prior to t ransfer to [place] in March) Cr 1.87 on admit, repeat 1.75 IVF ordered holding diuretics for now BMP in AM (12) Hypomagnesemia: Plan: 1.5 on admit, IV replacement ordered wnl on repeat (13) Hypokalemia: Plan: 3.3 on am labs, 20meq po replacement ordered BMP in AM (14) Hyponatremia: Plan: chronic issue based on prior labs appears usually closer to 130s na 127 on admit, likely 2nd to dehydration/volume drop from lasix given at [facility] IVF ordered --> Na 128 on repeat and closer to baseline finish current bag, repeat level in AM add urine studies if needed based on repeat levels Plan continued inpatient stay, changed to full admit moved to telemetry for closer monitoring given recent NH/ICD and transfer to [place] for cardiogenic shock Admission and Anticipated Discharge Date Admission Date: April 18, 2022 Subjective Patient evaluated this morning. Stated seen by cards tuesday, but previously had been thinking was initially her gallbladder but then at tertiary they determined it was sepsis with cardiogenic shock and she had mottling up her RLE and blue toes. She states she was up 2lb yesterday at [facility] and they gave her a dose of lasix, she believes 40mg by mouth and she has been going to the bathroom with increased urination. She states the blue discoloration in her toes was concerning and weakness was her primary symptom that brought her to the hospital. She described some chest pressure sensation/ache but no chest pain similar to prior episode in February with her NH which she describes as crushing chest pain. She denies shortness of breath or increased shortness of breath prior to lasix at [facility]. Discussed NH cardiology on consult and moving to a monitored bed. She denies any palpitations or lightheaded/dizziness. She notes when she was attempting to get ready to go out to breakfast she was leaning over to put her shoes on and developed some nausea and dry heaving with some phlegm production. Denied any further sensation or n/v or abdominal pain. However, on exam is mildly tender to palpation RUQ however prior GB disease ruled out with negative HIDA. She notes this discomfort from her hiatal hernia. Denies any history of anemia but on iron supplementation. She denies any blood in her urine or stool. Review of Systems Review of Systems: All systems reviewed & are unremarkable except as noted in HPI & below Physical Exam Physical Exam: General: WD frail eldrly female sitting up in bed, NAD alert to person/place/time, cooperative HEENT: head normocephalic, atraumatic, mm slightly dry, trachea midline without deviation Chest: ICD in place Resp: CTAB, diminished in the bases, no rales/wheezing, on room air CV: bradycardic (rate 58bpm), +holosystolic murmur at apex, pulses palpable b/l LE, feet warm bilaterally RIGHT great toe with dusky discoloration (reportedly had mottling spreading up her leg), non painful to palpation GI: +BS, soft, nontender MSK/Neuro: moves all extremities R great toe with dusky appearance, non tender to palpation. claw toe 2nd digit right foot strength 5/5 bilaterally no focal deficit Psych: AOx3, pleasant and cooperative Skin: see above, otherwise warm,dry Results & Data Results & Data ([facility]) Vital Signs (Past 12 Hours) Vital Signs Temp Pulse Resp BP Pulse Ox O2 Del Method 04/19/22 08:01 36.7 C 53 L 18 122/74 96 Room Air 04/19/22 00:00 36.4 C L 58 L 16 133/87 97 Room Air 04/19/22 00:00 36.4 C L 56 L 16 133/87 97 Room Air 04/18/22 22:30 58 L 16 127/86 Laboratory Results 04/19/22 04/19/22 04/19/22 Range/Units 09:03 09:03 06:48 WBC (4.8-10.8) K/ul RBC (3.93-5.22) M/uL Hgb (12.0-16.0) g/dl Hct (34.1-44.9) % MCV (80.0-100.0) fL MCH (25.0-34.0) pg MCHC (32.0-36.0) g/dL RDW Std Deviation (36.4-46.3) fL RDW Coeff of Sachin (11.5-14.5) % Plt Count (130-400) K/uL MPV (9.4-12.3) fL Immature Gran % (Auto) % Neut % (Auto) % Lymph % (Auto) % [place] % (Auto) % Eos % (Auto) % Baso % (Auto) % Neut # (Auto) (1.4-6.5) K/uL Lymph # (Auto) (1.2-3.4) K/uL [place] # (Auto) (0.24-0.82) K/uL Eos # (Auto) (0-0.50) K/uL Baso # (Auto) (0-0.2) K/uL Immature Gran # (Auto) (0.00-0.02) K/uL PT (9.0-12.0) Seconds INR (0.9-1.1) APTT 73.6 H* (21.0-31.0) Seconds PTT Ratio 2.7 Sodium (136-145) mmol/L Potassium (3.5-5.1) mmol/L Chloride (98-107) mmol/L Carbon Dioxide (21-32) mmol/L Anion Gap (3-11) BUN (6-23) mg/dl Creatinine (0.6-1.2) mg/dl Est Cr Clr Drug Dosing Est GFR ( Amer) ml/min Est GFR (Non-Af Amer) ml/min BUN/Creatinine Ratio (10-20) Glucose (70-99(Fasting)) mg/dl Lactate 1.5 (0.4-2.0) mmol/L Calcium (8.5-10.1) mg/dl Magnesium (1.7-2.4) mg/dl Iron 55 (35-150) mcg/dl TIBC 236 L (250-450) mcg/dl Unsaturated IBC 181 (155-355) mcg/dl Transferrin % Sat 23 (15-50) % Ferritin 758.2 H (8-388) ng/ml Total Bilirubin (0.2-1.0) mg/dl AST (13-39) U/L ALT (7-52) U/L Alkaline Phosphatase (34-104) U/L Troponin I High Sens (0-14) pg/ml Total Protein (6.0-8.3) gm/dl Albumin (3.4-5.0) gm/dl Globulin (2.5-4.0) gm/dl Albumin/Globulin Ratio (0.9-2) SARS-CoV-2, RNA, NAAT (NEGATIVE) 04/19/22 04/19/22 04/19/22 Range/Units 06:48 06:48 06:48 WBC 8.11 (4.8-10.8) K/ul RBC 2.93 L (3.93-5.22) M/uL Hgb 9.0 L (12.0-16.0) g/dl Hct 26.6 L (34.1-44.9) % MCV 90.8 (80.0-100.0) fL MCH 30.7 (25.0-34.0) pg MCHC 33.8 (32.0-36.0) g/dL RDW Std Deviation 51.7 H (36.4-46.3) fL RDW Coeff of Sachin 16.6 H (11.5-14.5) % Plt Count 251 (130-400) K/uL MPV 8.3 L (9.4-12.3) fL Immature Gran % (Auto) % Neut % (Auto) % Lymph % (Auto) % [place] % (Auto) % Eos % (Auto) % Baso % (Auto) % Neut # (Auto) (1.4-6.5) K/uL Lymph # (Auto) (1.2-3.4) K/uL [place] # (Auto) (0.24-0.82) K/uL Eos # (Auto) (0-0.50) K/uL Baso # (Auto) (0-0.2) K/uL Immature Gran # (Auto) (0.00-0.02) K/uL PT (9.0-12.0) Seconds INR (0.9-1.1) APTT > 139.0 H* (21.0-31.0) Seconds PTT Ratio > 5.1 Sodium 128 L (136-145) mmol/L Potassium 3.3 L D (3.5-5.1) mmol/L Chloride 95 L (98-107) mmol/L Carbon Dioxide 21 (21-32) mmol/L Anion Gap 12 H (3-11) BUN 49 H (6-23) mg/dl Creatinine 1.75 H (0.6-1.2) mg/dl Est Cr Clr Drug Dosing 16.8 Est GFR ( Amer) 31.5 ml/min Est GFR (Non-Af Amer) 27.2 ml/min BUN/Creatinine Ratio 28.0 H (10-20) Glucose 68 L (70-99(Fasting)) mg/dl Lactate (0.4-2.0) mmol/L Calcium 8.4 L (8.5-10.1) mg/dl Magnesium (1.7-2.4) mg/dl Iron (35-150) mcg/dl TIBC (250-450) mcg/dl Unsaturated IBC (155-355) mcg/dl Transferrin % Sat (15-50) % Ferritin (8-388) ng/ml Total Bilirubin (0.2-1.0) mg/dl AST (13-39) U/L ALT (7-52) U/L Alkaline Phosphatase (34-104) U/L Troponin I High Sens (0-14) pg/ml Total Protein (6.0-8.3) gm/dl Albumin (3.4-5.0) gm/dl Globulin (2.5-4.0) gm/dl Albumin/Globulin Ratio (0.9-2) SARS-CoV-2, RNA, NAAT (NEGATIVE) 04/19/22 04/19/22 04/19/22 Range/Units 00:51 00:51 00:42 WBC 8.06 (4.8-10.8) K/ul RBC 3.05 L (3.93-5.22) M/uL Hgb 9.4 L (12.0-16.0) g/dl Hct 28.5 L (34.1-44.9) % MCV 93.4 (80.0-100.0) fL MCH 30.8 (25.0-34.0) pg MCHC 33.0 (32.0-36.0) g/dL RDW Std Deviation 54.0 H (36.4-46.3) fL RDW Coeff of Sachin 16.9 H (11.5-14.5) % Plt Count 296 (130-400) K/uL MPV 8.6 L (9.4-12.3) fL Immature Gran % (Auto) 1.1 % Neut % (Auto) 60.8 % Lymph % (Auto) 26.8 % [place] % (Auto) 8.7 % Eos % (Auto) 2.4 % Baso % (Auto) 0.2 % Neut # (Auto) 4.90 (1.4-6.5) K/uL Lymph # (Auto) 2.16 (1.2-3.4) K/uL [place] # (Auto) 0.70 (0.24-0.82) K/uL Eos # (Auto) 0.19 (0-0.50) K/uL Baso # (Auto) 0.02 (0-0.2) K/uL Immature Gran # (Auto) 0.09 H (0.00-0.02) K/uL PT 15.6 H (9.0-12.0) Seconds INR 1.5 H (0.9-1.1) APTT 31.6 H (21.0-31.0) Seconds PTT Ratio 1.1 Sodium (136-145) mmol/L Potassium (3.5-5.1) mmol/L Chloride (98-107) mmol/L Carbon Dioxide (21-32) mmol/L Anion Gap (3-11) BUN (6-23) mg/dl Creatinine (0.6-1.2) mg/dl Est Cr Clr Drug Dosing Est GFR ( Amer) ml/min Est GFR (Non-Af Amer) ml/min BUN/Creatinine Ratio (10-20) Glucose (70-99(Fasting)) mg/dl Lactate 3.2 H* (0.4-2.0) mmol/L Calcium (8.5-10.1) mg/dl Magnesium (1.7-2.4) mg/dl Iron (35-150) mcg/dl TIBC (250-450) mcg/dl Unsaturated IBC (155-355) mcg/dl Transferrin % Sat (15-50) % Ferritin (8-388) ng/ml Total Bilirubin (0.2-1.0) mg/dl AST (13-39) U/L ALT (7-52) U/L Alkaline Phosphatase (34-104) U/L Troponin I High Sens (0-14) pg/ml Total Protein (6.0-8.3) gm/dl Albumin (3.4-5.0) gm/dl Globulin (2.5-4.0) gm/dl Albumin/Globulin Ratio (0.9-2) SARS-CoV-2, RNA, NAAT (NEGATIVE) 04/19/22 04/18/22 04/18/22 Range/Units 00:34 21:50 15:22 WBC (4.8-10.8) K/ul RBC (3.93-5.22) M/uL Hgb (12.0-16.0) g/dl Hct (34.1-44.9) % MCV (80.0-100.0) fL MCH (25.0-34.0) pg MCHC (32.0-36.0) g/dL RDW Std Deviation (36.4-46.3) fL RDW Coeff of Sachin (11.5-14.5) % Plt Count (130-400) K/uL MPV (9.4-12.3) fL Immature Gran % (Auto) % Neut % (Auto) % Lymph % (Auto) % [place] % (Auto) % Eos % (Auto) % Baso % (Auto) % Neut # (Auto) (1.4-6.5) K/uL Lymph # (Auto) (1.2-3.4) K/uL [place] # (Auto) (0.24-0.82) K/uL Eos # (Auto) (0-0.50) K/uL Baso # (Auto) (0-0.2) K/uL Immature Gran # (Auto) (0.00-0.02) K/uL PT (9.0-12.0) Seconds INR (0.9-1.1) APTT (21.0-31.0) Seconds PTT Ratio Sodium 127 L (136-145) mmol/L Potassium 4.4 (3.5-5.1) mmol/L Chloride 93 L (98-107) mmol/L Carbon Dioxide 17 L (21-32) mmol/L Anion Gap 17 H (3-11) BUN 46 H (6-23) mg/dl Creatinine 1.87 H (0.6-1.2) mg/dl Est Cr Clr Drug Dosing Not Reportable Est GFR ( Amer) 29.1 ml/min Est GFR (Non-Af Amer) 25.1 ml/min BUN/Creatinine Ratio 24.6 H (10-20) Glucose 92 (70-99(Fasting)) mg/dl Lactate (0.4-2.0) mmol/L Calcium 9.0 (8.5-10.1) mg/dl Magnesium 2.0 (1.7-2.4) mg/dl Iron (35-150) mcg/dl TIBC (250-450) mcg/dl Unsaturated IBC (155-355) mcg/dl Transferrin % Sat (15-50) % Ferritin (8-388) ng/ml Total Bilirubin 0.8 (0.2-1.0) mg/dl AST 38 (13-39) U/L ALT 28 (7-52) U/L Alkaline Phosphatase 111 H (34-104) U/L Troponin I High Sens 48.4 H 44.2 H D (0-14) pg/ml Total Protein 6.8 (6.0-8.3) gm/dl Albumin 3.7 (3.4-5.0) gm/dl Globulin 3.1 (2.5-4.0) gm/dl Albumin/Globulin Ratio 1.2 (0.9-2) SARS-CoV-2, RNA, NAAT NEGATIVE (NEGATIVE) 04/18/22 04/18/22 Range/Units 15:22 15:22 WBC 6.81 (4.8-10.8) K/ul RBC 3.11 L (3.93-5.22) M/uL Hgb 9.4 L (12.0-16.0) g/dl Hct 29.4 L (34.1-44.9) % MCV 94.5 (80.0-100.0) fL MCH 30.2 (25.0-34.0) pg MCHC 32.0 (32.0-36.0) g/dL RDW Std Deviation 54.4 H (36.4-46.3) fL RDW Coeff of Sachin 16.6 H (11.5-14.5) % Plt Count 298 (130-400) K/uL MPV 8.3 L (9.4-12.3) fL Immature Gran % (Auto) 1.8 % Neut % (Auto) 78.4 % Lymph % (Auto) 13.4 % [place] % (Auto) 5.7 % Eos % (Auto) 0.4 % Baso % (Auto) 0.3 % Neut # (Auto) 5.34 (1.4-6.5) K/uL Lymph # (Auto) 0.91 L (1.2-3.4) K/uL [place] # (Auto) 0.39 (0.24-0.82) K/uL Eos # (Auto) 0.03 (0-0.50) K/uL Baso # (Auto) 0.02 (0-0.2) K/uL Immature Gran # (Auto) 0.12 H (0.00-0.02) K/uL PT 16.1 H (9.0-12.0) Seconds INR 1.5 H (0.9-1.1) APTT 30.2 (21.0-31.0) Seconds PTT Ratio 1.1 Sodium (136-145) mmol/L Potassium (3.5-5.1) mmol/L Chloride (98-107) mmol/L Carbon Dioxide (21-32) mmol/L Anion Gap (3-11) BUN (6-23) mg/dl Creatinine (0.6-1.2) mg/dl Est Cr Clr Drug Dosing Est GFR ( Amer) ml/min Est GFR (Non-Af Amer) ml/min BUN/Creatinine Ratio (10-20) Glucose (70-99(Fasting)) mg/dl Lactate (0.4-2.0) mmol/L Calcium (8.5-10.1) mg/dl Magnesium (1.7-2.4) mg/dl Iron (35-150) mcg/dl TIBC (250-450) mcg/dl Unsaturated IBC (155-355) mcg/dl Transferrin % Sat (15-50) % Ferritin (8-388) ng/ml Total Bilirubin (0.2-1.0) mg/dl AST (13-39) U/L ALT (7-52) U/L Alkaline Phosphatase (34-104) U/L Troponin I High Sens (0-14) pg/ml Total Protein (6.0-8.3) gm/dl Albumin (3.4-5.0) gm/dl Globulin (2.5-4.0) gm/dl Albumin/Globulin Ratio (0.9-2) SARS-CoV-2, RNA, NAAT (NEGATIVE) Diagnostic Findings Duplex Scan Lower Extremity Artery 04/18/22 16:39 RIGHT LOWER EXTREMITY ARTERIAL DOPPLER ULTRASOUND CLINICAL HISTORY: discoloration right foot/toe COMPARISON STUDY: None available at time of interpretation. TECHNIQUE: Color and duplex Doppler sonography of the arterial system of the right lower extremity was performed. FINDINGS: Moderate atherosclerotic plaque within the right lower extremity is noted. No elevated [place]cities are identified. There is biphasic flow within the right common femoral, superficial femoral and popliteal arteries. There is biphasic flow within the right posterior tibial artery as well. There is monophasic and biphasic flow within the right peroneal, dorsalis pedis and anterior tibial arteries. IMPRESSION: 1. Moderate atherosclerotic plaque within the right lower extremity. 2. No elevated velocities to suggest a hemodynamically significant stenosis by sonography. 3. Predominantly biphasic flow within the right lower extremity. Monophasic flow within portions of the right calf vessels, as above. ACT 112: Negative or not required by law. Electronically signed by: Wally Nichols M.D. 04/19/2022 7:[address] 04/18/22 16:39 CT head/brain wo con CLINICAL HISTORY: 81 years-old Female with slurred speech. Acute strokelike symptoms TECHNIQUE: Multiple axial CT images of the head were obtained without contrast. A dose lowering technique was utilized adhering to the principles of ALARA. CT DOSE: 537.48 mGy.cm COMPARISON: None. FINDINGS: No acute intracranial hemorrhage, midline shift, intracranial mass, hydrocephalus, territorial ischemia or abnormal extra-axial collection. Mild involutional changes. White matter hypodensities suggest chronic microvascular ischemic disease. Cerebral vascular calcifications. Study is mildly motion degraded. The calvarium is intact. Prior bilateral lens repair. The paranasal sinuses, mastoid air cells, and middle ear cavities are clear. IMPRESSION: No acute intracranial abnormality. ACT 112: Negative or not required by law. The above report was generated using voice recognition software. It may contain grammatical, syntax or spelling errors. Electronically signed by: Ted Wesley M.D. 04/18/2022 5:36 PM ECHOCARDIOGRAM Normal LV size, mild concentric LVH LVEF 40-45%. Akinetic inferolateral wall. severely hypokinetic inferior wall Borderline dilated RV, RV function mildly reduced Moderate Mitral regurgitation Borderline pulmonary hypertension (est PASP >35mmHg). Positive bubble study. No LV thrombus. Compared to study March 19, 2022, LV function slightly improved. PG Care Time/CCT Total # of Minutes Spent Total Time Spent with Patient: Total time spent is greater than 50% in coordination of care (as documented) at patient's floor/unit and/or counseling patient: Coding Level of Care Code 66221 Subseq Hosp Care Lvl 3 Diagnoses Embolic disease of toe I74.3 [id number] kidney injury N17.9; N18.9 Chronic systolic CHF (congestive heart failure) I50.22 CAD (coronary artery disease) I25.10 Hypertension I10 Hypertension type: primary hypertension Hypothyroidism E03.9 Hypothyroidism type: acquired Discoloration of skin of toe L81.9 Elevated transaminase level R74.01 S/P ICD (internal cardiac defibrillator) procedure Z95.810 S/P coronary artery stent placement Z95.5 Stage 3b chronic kidney disease N18.32 Hypomagnesemia E83.42 Hypokalemia E87.6 Hyponatremia E87.1 (1) Hypertension Hypertension type: primary hypertension Qualified Code(s): I10 - Essential (primary) hypertension (2) Hypothyroidism Hypothyroidism type: acquired Qualified Code(s): E03.9 - Hypothyroidism, unspecified
[2022-04-19 09:43] LABS: Partial Thromboplastin Ratio 2.7
[2022-04-19 09:47] LABS: Partial Thromboplastin Time 73.6 Seconds (21.0-31.0)
[2022-04-19] MEDS: METOPROLOL SUCC 25MG EXT REL TAB PO SCH (10:02)
[2022-04-19] MEDS: THIAMINE HCL 100 MG TAB PO SCH (10:03)
--- NOTE | 2022-04-19 10:20 | Electrocardiogram Report ---
Test Reason : Blood Pressure : / mmHG Vent. Rate : 057 BPM Atrial Rate : 057 BPM P-R Int : 178 ms QRS Dur : 152 ms QT Int : 528 ms P-R-T Axes : 050 -29 -23 degrees QTc Int : 513 ms Poor data quality, interpretation may be adversely affected Sinus bradycardia Right bundle branch block Lateral infarct (cited on or before 06-MAR-2022) Abnormal ECG When compared with ECG of 19-MAR-2022 15:19, Questionable change in initial forces of Lateral leads Confirmed by Elieser Posey ([id number]) on 04/19/2022 10:20:34 AM Referred By: Ellis Morse Confirmed By:Elieser Posey
--- NOTE | 2022-04-19 12:39 | XCELERA ---
[id number]
[2022-04-19] MEDS ORDERED: POTASSIUM CHLORIDE CRTAB 20 MEQ TABCR PO STA (12:48)
[2022-04-19 13:16] LABS: Ferritin 758.2 ng/ml (8-388)
[2022-04-19] MEDS ORDERED: CLOPIDOGREL BISULFATE 300 MG TAB PO STA (13:34)
--- NOTE | 2022-04-19 14:17 | Cardiology Consultation ---
Date of Consultation April 19, 2022 Assessment & Plan (1) Discoloration of skin of toe: 2. Coronary artery disease --STEMI 02/2022, PCI of circumflex 3. HFrEF/Ischemic cardiomyopathy--EF40-45%, Inferolateral wall motion abnormality 4. Moderate MR 5. Vtach status post ICD 6. Acute on chronic renal insufficiency 7. Anemia 8. Hyponatremia 9. Moderate nonobstructive PADmobile right MANAGER INPATIENT mass thrombus versus plaque dislodgment post femoral access 10. Grossly positive bubble study most consistent with PFO Patient admitted with concern for increased discoloration of right toes and possible emboli. Previously noted to have a mobile mass in right MANAGER INPATIENT most consistent with thrombus versus plaque dislodgment, less likely closure device. On review of arterial duplex from admission right MANAGER INPATIENT plaque appears unchanged from Tuesday. No evidence of acute obstruction throughout arterial system into pedal vessels. Does have what appears to be rather large PFO On echo but otherwise no real cardioembolic sources. Today toes are not discolored and appear well-perfused after IV fluids overnight. May be having some microemboli but overall suspect changes may have been related to vasoconstriction in the setting of dehydration/low output. Going forward recommend: For possible MANAGER INPATIENT thrombus/emboli recommend anticoagulation for at least 3 months. Transition heparin to Eliquis 2.5 mg twice daily Would avoid triple therapy. Transition Brilinta to clopidogrel. Stop aspirin Continue to hold Lasix. Can resume as needed for weight >100 lbs at rehab Potassium supplementation today. If renal function continues to improve resume low-dose spironolactone Continue current metoprolol, amiodarone. Possibly discontinue amiodarone as an outpatient Continue statin Continue to monitor on telemetry overnight From a cardiovascular standpoint possible discharge back to rehab tomorrow Follow-up with CHF clinic as scheduled Repeat arterial duplex in 1 month History of Present Illness Reason for Consultation: High risk, chest pain, pending echo, positive troponin Requesting Physician: Dr. Moulton Attending Physician: Solitario Sage MD History of Present Illness Mrs. Brannon is a very pleasant 81-year-old female with history significant for CAD s/p acute AR and PCI (in [place] on 02/25/2022), sustained post AR ventricular arrhythmias post ICD placement, hypertension, CKD with nonfunctioning left kidney, chronic hyponatremia, dyslipidemia, and rheumatoid arthritis. Patient was seen in cardiology office 3 days ago for heart failure follow-up. At that time endorsed purpleish discoloration of right great toe. Underwent limited ultrasound which showed question of mobile right MANAGER INPATIENT thrombus versus disrupted plaque. Surveillance recommended. Readmitted yesterday due to question of increased purple discoloration of multiple toes on right foot as well as episode of questionable slurred speech. Repeat labs notable for hyponatremia with sodium 127 and elevated creatinine up to 1.87. Hemoglobin stable at 9.4. Repeat arterial duplex showed moderate nonobstructive disease in right lower extremity with predominantly multiphasic flow throughout. Head CT negative. Was started on heparin infusion overnight and given IV fluids. Today reports feeling back to recent baseline. States toe discoloration improved and denies any right lower extremity pain. Reports some chest tenderness after repeat echocardiogram today. Speech back to normal. Denies significant shortness of breath. Repeat echo today shows EF 40 to 45% with inferior/inferolateral wall motion abnormality. Moderate MR, no LV thrombus. Had grossly positive bubble study. Cardiac history: - 02/25/2022 acute AR in [place] while at a conference. PCI to circumflex. ICD placed. Discharged 03/0403/06/2022 rehospitalized at [facility] for nausea/vomiting, dehydration, discharged 03/1003/19/2022 readmitted again with vomiting. Elevated LFTs and concern for cholecystitis/cholangitis. Transferred to [facility]. Biliary pathology thought less likely. Treated for cardiogenic shock with milrinone drip and diuretics. Discharged back to rehab 03/30 She has had the following studies/procedures: 1. Cardiac catheterization 02/25/2022 [facility]: In setting of STEMI. Atherothrombotic occlusion of the circumflex. Underwent PCI with 3.5 x 15 mm Xience [place]; post dilated to 3.75 mm. 2. Echo 03/01/2022 [place]: Moderately reduced LV systolic function. EF 35-40%. Severe hypokinesis lateral and inferolateral wall from base to mid segments. Mild left atrial dilation. Mild to moderate MR. 3. Single-chamber ICD 03/02/2022 [facility]: Bee 4. Echo 03/06/2022 [facility]: Normal LV size. EF 35%. Akinesis of the inferolateral wall and base to mid anterolateral wall. Anterior and inferior soto appear hypokinetic but were not well visualized. Moderate left atrial dilation. No significant valvular abnormalities. Normal RVSP. 5. Echo 03/19/2022: EF 35 to 40%, akinetic inferolateral wall, hypokinetic base to mid anterolateral Family history:Her mother and father had cardiac issues. Social history:She quit smoking in 1984. Occasional alcohol. She is a . Four children. Grandchildren. Allergies Allergy/AdvReac Type Severity Reaction Status Date / Time gabapentin Allergy Unknown Verified 04/18/22 19:05 Home Medications Medication Instructions Recorded Confirmed Type acetaminophen 325 mg tablet 650 mg PO Q4 PRN Pain 03/19/22 04/18/22 History (Tylenol) amiodarone 200 mg tablet 200 mg PO DAILY 03/19/22 04/18/22 History aspirin 81 mg chewable tablet 81 mg PO DAILY 03/19/22 04/18/22 History docusate sodium 100 mg capsule 100 mg PO BID 03/19/22 04/18/22 History ferrous sulfate 325 mg (65 mg 325 mg PO DAILY 03/19/22 04/18/22 History iron) tablet (iron) levothyroxine 100 mcg tablet 100 mcg PO DAILY 03/19/22 04/18/22 History multivitamin 1 tab PO DAILY 03/19/22 04/18/22 History pantoprazole 40 mg tablet,delayed 40 mg PO BID 03/19/22 04/18/22 History release prednisone 5 mg tablet 5 mg PO DAILY 03/19/22 04/18/22 History ticagrelor 90 mg tablet (Brilinta) 90 mg PO Q12 03/19/22 04/18/22 History rotigotine 1 mg/24 hour 2 mg transdermal HS #90 ea 03/22/22 04/18/22 Rx transdermal 24 hour patch hydroxyzine HCl 25 mg tablet 25 mg PO HS PRN Anxiety 04/08/22 04/18/22 History metoprolol succinate 25 mg 25 mg PO DAILY 04/08/22 04/18/22 History tablet,extended release 24 hr omeprazole 20 mg capsule,delayed 20 mg PO DAILY 04/08/22 04/18/22 History release thiamine HCl (vitamin B1) 100 mg 100 mg PO DAILY 04/08/22 04/18/22 History tablet furosemide 40 mg tablet 40 mg PO DAILY PRN weight gain 04/14/22 04/18/22 History senna-docusate sodium tablet 1 tab PO BID PRN Constipation 04/14/22 04/18/22 History tramadol 50 mg tablet 50 mg PO Q6H PRN Pain #240 tabs 04/14/22 04/18/22 Rx atorvastatin 80 mg tablet 80 mg PO DAILY #90 tabs 04/16/22 04/18/22 Rx apixaban 2.5 mg tablet (Eliquis) 2.5 mg PO BID #60 tabs 04/19/22 Rx Patient History Medical History Acid reflux Acute encephalopathy Acute hyponatremia Acute AR Acute UTI CAD (coronary artery disease) AR in [place] in 02/2022. 1 stent placed (believe LCx, but not sure). 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 Dehydration, mild DVT prophylaxis Dysuria Elevated troponin Hiatal hernia History of Hodgkin's lymphoma S/P RADIATION/CHEMO (2000) History of pelvic fracture Hyperlipidemia Hypertension Hypothyroidism Ischemic cardiomyopathy Mixed stress and urge urinary incontinence Nausea & vomiting Restless leg syndrome Rheumatoid arthritis ON PLAQUENIL AND CHRONIC PREDNISONE 7.5MG DAILY Sciatica Scoliosis Stage 3b chronic kidney disease Ventricular tachycardia Surgical History H/O foot surgery 2ND RT TOE REMOVED History of bilateral cataract extraction RIGHT CATARACT EXTRACTION WITH IOL= 04/05/18= MAC SEDATION AT [facility] History of colonoscopy History of gynecologic surgery ANTERIOR AND POSTERIOR REPAIR - colporrhaphy (for pelvic relaxation) History of removal of cyst HEAD (BENIGN) History of tonsillectomy History of tooth extraction History of total knee replacement RT History of urologic surgery URETEROLYSIS- 04/1995 [facility] S/P coronary artery stent placement S/P ICD (internal cardiac defibrillator) procedure S/P vaginal hysterectomy Family History Mother , age 80 Cardiac disorder Family history of lung cancer Brother Diabetes Family history of lung cancer Family history of diabetes mellitus Daughter Breast cancer Father , age 57 Cardiac disorder Grandmother Diabetes Aunt Ovarian cancer paternal aunt Grandmother (Paternal) Family history of diabetes mellitus Other Cancer Heart disease No family history of adverse response to anesthesia No family history of bleeding disorder Denies family history of Colon cancer Colorectal cancer Social History Smoking Status: Never smoker Tobacco Type: Cigarettes Cigarettes Per Day: QUIT + 30 YEARS AGO; Second Hand Exposure: No; Hx Alcohol Use: No Hx Substance Use: No Preferred Language: Hungarian Communication Ability: Effective Visual Impairment: No Limitations Hearing Ability: Use of Hearing Aid Shirt Cleaner Required: No Beliefs That Will Affect Care: None marital status: / Current Living Situation: Personal Care Facility Current Living Situation Comment: [facility] 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 Neck: No appreciable JVD. Lungs: Clear to auscultation bilaterally without rales, rhonchi or wheezes. Cardiac: Regular rate and rhythm. S1-S2 normal. 2 out of 6 holosystolic murmur at the apex. ICD in place, Incision well-healed Abdomen: Soft Diffuse mild tenderness Extremities/vascular: --No edema --Right great toe Normal color today, dark discoloration of the tip of her toe. No ulceration.Post resection of second toe --Right femoral pulse 2+, . Remaining toes with normal color, normal capillary refill PT pulses 2+ bilaterally. 2+ DP on the left 1+ DP on the right Neurologic: Nonfocal Psychiatric: Affect appropriate. Alert and oriented. Results & Data ([facility]) Vital Signs (Past 12 Hours) Vital Signs Temp Pulse Resp BP Pulse Ox O2 Del Method 04/19/22 13:44 97.7 F 57 L 14 125/74 93 Room Air 04/19/22 08:01 98.1 F 53 L 18 122/74 96 Room Air PG Care Time/CCT Total # of Minutes Spent Total Time Spent with Patient: Total time spent is greater than 50% in coordination of care (as documented) at patient's floor/unit and/or counseling patient: Coding Level of Care Code 03234 Initial Inpt Care Lvl 3 Diagnoses Discoloration of skin of toe L81.9
[2022-04-19] MEDS ORDERED: MoRPHine SULFATE 2 MG/ML CARP IV STA ×2 (16:10→16:39)
[2022-04-19] MEDS ORDERED: NITROGLYCERIN SL 0.4 MG/TAB TAB SL STA (16:10)
[2022-04-19] MEDS ORDERED: MoRPHine SULFATE 4 MG/ML 1 ML CARP\\VIAL IV PRN (16:39)
[2022-04-19] MEDS: SODIUM CHLORIDE 0.9% 500 ML IV SCH (16:49)
[2022-04-19] MEDS ORDERED: FAMOTIDINE 20 MG in SYRINGE 3 ML IV ONE (17:00)
[2022-04-19 17:29] LABS: Partial Thromboplastin Ratio 1.6; Partial Thromboplastin Time 44.2 Seconds (21.0-31.0)
[2022-04-19 18:05] LABS: Troponin I High Sensitivity 38.3 pg/ml (0-14)
[2022-04-19 18:07] LABS: Folate (Folic Acid) > 22.30 ng/ml (>5.38)
[2022-04-19 18:08] LABS: Vitamin B12 1199 pg/ml (180-914)
[2022-04-19] MEDS: ROTIGOTINE TD SCH (19:06)
[2022-04-19] MEDS: traMADol HCL 50 MG TABLET PO PRN (20:12)
[2022-04-19] MEDS ORDERED: APIXABAN 2.5 MG TAB PO SCH (21:00)
[2022-04-19] MEDS: ATORVASTATIN 40 MG TAB PO SCH (21:51)
[2022-04-20 01:41] LABS: Partial Thromboplastin Ratio 2.3
[2022-04-20 01:47] LABS: Partial Thromboplastin Time 63.2 Seconds (21.0-31.0)
[2022-04-20] MEDS: LEVOTHYROXINE SODIUM 100 MCG TABLET PO SCH (05:51)
[2022-04-20 07:18] LABS: Basophils # (auto) 0.04 K/uL (0-0.2); Basophils % (auto) 0.5 %; Eosinophils # (auto) 0.27 K/uL (0-0.50); Eosinophils % (auto) 3.3 %; Hematocrit (blood only) 28.4 % (34.1-44.9); Hemoglobin 9.3 g/dl (12.0-16.0); Immature Granulocytes # (auto) 0.06 K/uL (0.00-0.02); Immature Granulocytes % (auto) 0.7 %; Lymphocytes # (auto) 1.82 K/uL (1.2-3.4); Lymphocytes % (auto) 22.2 %; Mean Corpuscular Hemoglobin 30.7 pg (25.0-34.0); Mean Corpuscular Hgb Conc 32.7 g/dL (32.0-36.0); Mean Corpuscular Volume 93.7 fL (80.0-100.0); Mean Platelet Volume 8.8 fL (9.4-12.3); Monocytes # (auto) 0.65 K/uL (0.24-0.82); Monocytes % (auto) 7.9 %; Neutrophils # (auto) 5.37 K/uL (1.4-6.5); Neutrophils % (auto) 65.4 %; Platelet Count 223 K/uL (130-400); RDW Coefficient of Variation 17.3 % (11.5-14.5); RDW Standard Deviation 55.4 fL (36.4-46.3); Red Blood Count 3.03 M/uL (3.93-5.22); White Blood Count 8.21 K/ul (4.8-10.8)
[2022-04-20 07:29] LABS: Partial Thromboplastin Ratio 1.4; Partial Thromboplastin Time 38.7 Seconds (21.0-31.0)
[2022-04-20 07:38] LABS: Albumin Globulin Ratio 1.3 (0.9-2); BUN Creatinine Ratio 25.5 (10-20); Bilirubin,Total 0.6 mg/dl (0.2-1.0); Calcium 7.1 mg/dl (8.5-10.1); Creatinine Clr Calc Pharmacy 20.9 ml/min; Est GFR (Non-African American) 35.3 ml/min; Globulin 2.3 gm/dl (2.5-4.0); Magnesium 1.8 mg/dl (1.7-2.4); Potassium 3.3 mmol/L (3.5-5.1); Total Protein 5.3 gm/dl (6.0-8.3)
[2022-04-20] MEDS ORDERED: POTASSIUM CHLORIDE CRTAB 20 MEQ TABCR PO STA (07:47)
--- NOTE | 2022-04-20 07:52 | Hospitalist Progress Note ---
Date of Service April 20, 2022 Assessment & Plan (1) Embolic disease of toe: Plan: [facility] [place] for sustained Ventricular Arrhythmia. Lactic 3.2 on admit, normal on repeat w/ IVF Admitted in March for possible sepsis/acute cholecystitis with elevated LFTs, however patient reports when transferred to [place], felt sepsis 2nd to cardiogenic shock treated with milrinone gtt and diuretics and discharge to rehab 03/30 (reported had mottling of her right toes/extension up her foot at discharge) States was given lasix 40mg PO by [facility]eria for 2lb weight gain on tuesday Progression of pain/blue 1st toe on RIGHT FOOT -- had U/S with Dr Bose, which showed possible focal mobile thrombus of right external iliac artery responsible for embolus to her toe as cardiac cath in February performed via right [employer] access Arterial Duplex: Moderate atherosclerotic plaque within the right lower extremity. No elevated velocities to suggest a hemodynamically significant stenosis by sonography. Predominantly biphasic flow within the right lower extremity. Monophasic flow within portions of the right calf vessels, as above. ECHO w/ LVEF 40-45%, moderate MR, borderline pulmonary HTN. +bubble study (compared to prior study 03/19, EF slightly improved) On Brilinta/Aspirin post PCI --> given Plavix 300mg 04/19, continue 75mg daily as placing on Eliquis 2.5mg BID evening 04/20(on heparin through tonight) DISCONTINUED ASPIRIN Continue to monitor inpatient for any bleeding 04/20 had episode of nausea/vomiting x 1 afternoon 04/19 --NONE FURTHER given morphine 2mg IV x 2, nitro x 1 with relief, repeat troponin not further increased EKG without ST elevation epigastric discomfort, lipase elevated but ?if related to n/v decision to continue heparin gtt for now rather than convert to eliquis last evening given such Lactic checked given embolic disease for fear of ischemic gut, lactic wnl. LDH not elevated BNP elevated BMP with significant electrolyte derangements, weirdly Na now wnl. K 3.3, 20meq provided.Cr improved 1.41 added back spironolactone 12.5mg daily per nephrology/hypoK on labs. Hold lasix, resume at [facility] if wt>100lb) Nephrology consulted --given high AG, felt related to MURRAY w/ low serum chloride. ordered 1L IVF, discussed with cards and they rec capping at 500cc GI consulted given Abd discomfort --> added pepcid BID, carafate. Not candidate for surgical correction of intrathoracic hiatal hernia given cardiac comorbidities consider imaging, but given stability holding off. Per [facility] notes, consideration for bentyl as needed Regarding n/v abdominal discomforts, patient does have hx chronic prednisone use for her rheumatoid arthritis. 5mg daily, no prior stress dosing see on prior admits but BPs borderline Ordered hydrocortisone for today, monitor response, and transition back to her usual prednisone after 24-48 hour stress dosing Monitor AM labs, likely d/c back to [facility] tomorrow on eliquis, outpt f/u Dr Bose, repeat arterial duplex 1 month.. considering d/c amio outpatient Will need f/u CHF clinic as well, resume lasix if weight >100lb. (2) Adrenal insufficiency: Plan: suspected in patient with chronic predisone use ordered hydrocortisone IV for today, titrate had prior stress dose steroids in past//tapers, but nothing recently given abdominal discomfort/nausea/vomiting yesterday and hypokalemia with lower BPs prior, believe stress dosing warranted. Also was hospitalized for cardiogenic shock in the past month, unclear if ever got stress dose steroids at that time. ordered hydrocortisone for today, monitor (3) [id number] kidney injury: Plan: 2nd to dehydration, given lasix at [facility] for 3lb weight gain holding lasix, IVF ordered on admission, none further given elevated BNP Renal dose meds when able/avoid nephrotoxic agents when able Cr improved, but with anion gap to 31? see nephrology note, given IVF for today, suspect related to MURRAY and low chloride BMP in AM (4) Chronic systolic CHF (congestive heart failure): Plan: Compensated. 2D echo as above Cards on consult Monitor weights/intake Continued on metoprolol Entresto and spironolactone previously placed on hold -- continue to hold en tresto resumed spironolactone 12.5mg for 04/20 per cards/continued hypokalemia IVF as above, continue to hold lasix, resume if wt <100lb Monitor status, close f/u CHF clinic (5) CAD (coronary artery disease): Plan: Status post [place] angioplasty with stent placement to circumflex. Patient with post [place] VT status post ICD placement now on amiodarone therapy Aspirin/brilinta --> plavix/Eliquis as above continue amiodarone, atorvastatin, metoprolol No CP reported like prior [place] this summer (6) Hypertension: Plan: BP stable 124/78 continue BB resume spironolactone 12.5mg daily continue to hold Entresto/lasix as outlined Monitor (7) Hypothyroidism: Plan: Chronic, and maintained on Synthroid 100mcg daily --appears last TSH was elevated to 13.75 in march (was 11 prior in February), likely reactive Repeat TSH wnl 2.58 (8) Discoloration of skin of toe: Plan: as above (9) Elevated transaminase level: Plan: ALP elevated -- see above, HIDA negative at [place] cardiogenic shock LFTs all wnl on repeat (10) S/P ICD (internal cardiac defibrillator) procedure: Plan: noted, placed for V arrhythmia s/p PCI for [place] in [place] (11) S/P coronary artery stent placement: (12) Stage 3b chronic kidney disease: Plan: prior to [place]/recent hospitalizations Cr was closer to 1 (up to 2.24 prior to transfer to [place] in March) Cr 1.87 on admit, repeat 1.75 --> 1.4 with additional IVF 04/19 Additional 500cc for 04/20 holding lasix, resume spironolactone BMP in AM (13) Hypomagnesemia: Plan: 1.5 on admit, IV replacement ordered wnl on repeat (14) Hypokalemia: Plan: 3.3 on am labs, 20meq po replacement ordered BMP in AM (15) Hyponatremia: Plan: chronic issue based on prior labs appears usually closer to 130s na 127 on admit, likely 2nd to dehydration/volume drop from lasix given at [facility] IVF ordered --> Na 128 on repeat and closer to baseline finish current bag, repeat level in AM add urine studies if needed based on repeat levels repeat Na 138 (16) Rheumatoid arthritis: Plan continued inpatient stay, hopeful d/c tomorrow if stable on eliquis/cr improved Admission and Anticipated Discharge Date Admission Date: April 19, 2022 Subjective eval this morning, feeling much better than last evening. Discussed lactic wnl and LDH wnl, trop decreased from prior. Discussed remain on heparin gtt for now but will plan for eliquis when able to transition. no further nausea/vomiting pain much improved, only VERY SMALL amount of pressure. No shortness of breath, nausea. Ate this morning but early satiety. Discussed BNP elevation but wanting to avoid diuretics for now until convene with nephrology given CR while improved, also with other electrolyte derangements. Discussed stress dose steroids given abd discomfort/hypokalemia/nausea/vomiting on chronic steroids. She notes she had been on tapers in the past. Got morphine for pain yesterday, but admits she has moved her bowels four times yesterday, nothing yet this morning. Will check stool study. Discussed GI/Nephro consults. No fever/chills, cough or sputum production. Had small IV infiltrate to R arm this morning, changed by RN. Currently waiting to work with therapy. RN to administer metoprolol this morning, HR consistently daniel 50-60s, has ICD and was to see Dr Sevilla for pacemaker check. Review of Systems Review of Systems: All systems reviewed & are unremarkable except as noted in HPI & below Physical Exam Physical Exam: General: WD frail eldrly female sitting up in bed, NAD alert to person/place/time, cooperative HEENT: head normocephalic, atraumatic, mm slightly dry, trachea midline without deviation Chest: ICD in place, incision well healed Resp: CTAB, diminished in the bases, no rales/wheezing, on room air 96% CV: bradycardic (rate 55bpm), +holosystolic murmur at apex, pulses palpable b/l LE, feet warm bilaterally RIGHT great toe with dusky discoloration, minimally tender GI: +BS, decreased epigastric discomfort, soft, no guarding/rebound MSK/Neuro: moves all extremities R great toe with dusky appearance, non tender to palpation. claw toe 2nd digit right foot strength 5/5 bilaterally no focal deficit Psych: AOx3, pleasant and cooperative Skin: see above, otherwise warm,dry Results & Data Results & Data ([facility]) Vital Signs (Past 12 Hours) Vital Signs Temp Pulse Pulse Resp BP Pulse Ox O2 Del Method 04/20/22 07:14 36.4 C L 56 L 16 132/79 97 Room Air 04/20/22 03:39 36.5 C 55 L 18 103/63 94 Room Air 04/19/22 23:27 36.5 C 55 L 18 103/68 97 04/19/22 22:25 54 L 04/19/22 20:00 36.5 C 52 L 16 124/80 95 Laboratory Results 04/20/22 04/20/22 04/20/22 Range/Units 06:38 06:38 06:38 WBC 8.21 (4.8-10.8) K/ul RBC 3.03 L (3.93-5.22) M/uL Hgb 9.3 L (12.0-16.0) g/dl Hct 28.4 L (34.1-44.9) % MCV 93.7 (80.0-100.0) fL MCH 30.7 (25.0-34.0) pg MCHC 32.7 (32.0-36.0) g/dL RDW Std Deviation 55.4 H (36.4-46.3) fL RDW Coeff of Sachin 17.3 H (11.5-14.5) % Plt Count 223 (130-400) K/uL MPV 8.8 L (9.4-12.3) fL Immature Gran % (Auto) 0.7 % Neut % (Auto) 65.4 % Lymph % (Auto) 22.2 % Carter % (Auto) 7.9 % Eos % (Auto) 3.3 % Baso % (Auto) 0.5 % Neut # (Auto) 5.37 (1.4-6.5) K/uL Lymph # (Auto) 1.82 (1.2-3.4) K/uL Carter # (Auto) 0.65 (0.24-0.82) K/uL Eos # (Auto) 0.27 (0-0.50) K/uL Baso # (Auto) 0.04 (0-0.2) K/uL Immature Gran # (Auto) 0.06 H (0.00-0.02) K/uL APTT (21.0-31.0) Seconds PTT Ratio Sodium 138 D (136-145) mmol/L Potassium 3.3 L (3.5-5.1) mmol/L Chloride 88 L (98-107) mmol/L Carbon Dioxide 19 L (21-32) mmol/L Anion Gap 31 H (3-11) BUN 36 H (6-23) mg/dl Creatinine 1.41 H D (0.6-1.2) mg/dl Est Cr Clr Drug Dosing 20.9 ml/min Est GFR ( Amer) 41.0 ml/min Est GFR (Non-Af Amer) 35.3 ml/min BUN/Creatinine Ratio 25.5 H (10-20) Glucose 76 (70-99(Fasting)) mg/dl Lactate (0.4-2.0) mmol/L Calcium 7.1 L (8.5-10.1) mg/dl Magnesium 1.8 (1.7-2.4) mg/dl Iron (35-150) mcg/dl TIBC (250-450) mcg/dl Unsaturated IBC (155-355) mcg/dl Transferrin % Sat (15-50) % Ferritin (8-388) ng/ml Total Bilirubin 0.6 (0.2-1.0) mg/dl AST 37 (13-39) U/L ALT 31 (7-52) U/L Alkaline Phosphatase 100 (34-104) U/L Lactate Dehydrogenase (86-244) U/L Troponin I High Sens (0-14) pg/ml B-Natriuretic Peptide (0-100) pg/ml Total Protein 5.3 L D (6.0-8.3) gm/dl Albumin 3.0 L (3.4-5.0) gm/dl Globulin 2.3 L (2.5-4.0) gm/dl Albumin/Globulin Ratio 1.3 (0.9-2) Lipase (11-82) U/L Vitamin B12 (180-914) pg/ml Folate (>5.38) ng/ml TSH Pending 04/20/22 04/20/22 04/19/22 Range/Units 06:38 00:54 17:03 WBC (4.8-10.8) K/ul RBC (3.93-5.22) M/uL Hgb (12.0-16.0) g/dl Hct (34.1-44.9) % MCV (80.0-100.0) fL MCH (25.0-34.0) pg MCHC (32.0-36.0) g/dL RDW Std Deviation (36.4-46.3) fL RDW Coeff of Sachin (11.5-14.5) % Plt Count (130-400) K/uL MPV (9.4-12.3) fL Immature Gran % (Auto) % Neut % (Auto) % Lymph % (Auto) % Carter % (Auto) % Eos % (Auto) % Baso % (Auto) % Neut # (Auto) (1.4-6.5) K/uL Lymph # (Auto) (1.2-3.4) K/uL Carter # (Auto) (0.24-0.82) K/uL Eos # (Auto) (0-0.50) K/uL Baso # (Auto) (0-0.2) K/uL Immature Gran # (Auto) (0.00-0.02) K/uL APTT 38.7 H 63.2 H* (21.0-31.0) Seconds PTT Ratio 1.4 2.3 Sodium (136-145) mmol/L Potassium (3.5-5.1) mmol/L Chloride (98-107) mmol/L Carbon Dioxide (21-32) mmol/L Anion Gap (3-11) BUN (6-23) mg/dl Creatinine (0.6-1.2) mg/dl Est Cr Clr Drug Dosing ml/min Est GFR ( Amer) ml/min Est GFR (Non-Af Amer) ml/min BUN/Creatinine Ratio (10-20) Glucose (70-99(Fasting)) mg/dl Lactate (0.4-2.0) mmol/L Calcium (8.5-10.1) mg/dl Magnesium (1.7-2.4) mg/dl Iron (35-150) mcg/dl TIBC (250-450) mcg/dl Unsaturated IBC (155-355) mcg/dl Transferrin % Sat (15-50) % Ferritin (8-388) ng/ml Total Bilirubin (0.2-1.0) mg/dl AST (13-39) U/L ALT (7-52) U/L Alkaline Phosphatase (34-104) U/L Lactate Dehydrogenase 198 (86-244) U/L Troponin I High Sens (0-14) pg/ml B-Natriuretic Peptide (0-100) pg/ml Total Protein (6.0-8.3) gm/dl Albumin (3.4-5.0) gm/dl Globulin (2.5-4.0) gm/dl Albumin/Globulin Ratio (0.9-2) Lipase (11-82) U/L Vitamin B12 (180-914) pg/ml Folate (>5.38) ng/ml TSH 04/19/22 04/19/22 04/19/22 Range/Units 17:03 17:03 17:03 WBC (4.8-10.8) K/ul RBC (3.93-5.22) M/uL Hgb (12.0-16.0) g/dl Hct (34.1-44.9) % MCV (80.0-100.0) fL MCH (25.0-34.0) pg MCHC (32.0-36.0) g/dL RDW Std Deviation (36.4-46.3) fL RDW Coeff of Sachin (11.5-14.5) % Plt Count (130-400) K/uL MPV (9.4-12.3) fL Immature Gran % (Auto) % Neut % (Auto) % Lymph % (Auto) % Carter % (Auto) % Eos % (Auto) % Baso % (Auto) % Neut # (Auto) (1.4-6.5) K/uL Lymph # (Auto) (1.2-3.4) K/uL Carter # (Auto) (0.24-0.82) K/uL Eos # (Auto) (0-0.50) K/uL Baso # (Auto) (0-0.2) K/uL Immature Gran # (Auto) (0.00-0.02) K/uL APTT (21.0-31.0) Seconds PTT Ratio Sodium (136-145) mmol/L Potassium (3.5-5.1) mmol/L Chloride (98-107) mmol/L Carbon Dioxide (21-32) mmol/L Anion Gap (3-11) BUN (6-23) mg/dl Creatinine (0.6-1.2) mg/dl Est Cr Clr Drug Dosing ml/min Est GFR ( Amer) ml/min Est GFR (Non-Af Amer) ml/min BUN/Creatinine Ratio (10-20) Glucose (70-99(Fasting)) mg/dl Lactate 1.4 (0.4-2.0) mmol/L Calcium (8.5-10.1) mg/dl Magnesium (1.7-2.4) mg/dl Iron (35-150) mcg/dl TIBC (250-450) mcg/dl Unsaturated IBC (155-355) mcg/dl Transferrin % Sat (15-50) % Ferritin (8-388) ng/ml Total Bilirubin (0.2-1.0) mg/dl AST (13-39) U/L ALT (7-52) U/L Alkaline Phosphatase (34-104) U/L Lactate Dehydrogenase (86-244) U/L Troponin I High Sens 38.3 H D (0-14) pg/ml B-Natriuretic Peptide (0-100) pg/ml Total Protein (6.0-8.3) gm/dl Albumin (3.4-5.0) gm/dl Globulin (2.5-4.0) gm/dl Albumin/Globulin Ratio (0.9-2) Lipase 382 H (11-82) U/L Vitamin B12 1199 H (180-914) pg/ml Folate > 22.30 (>5.38) ng/ml TSH 04/19/22 04/19/22 04/19/22 Range/Units 17:03 17:03 09:03 WBC (4.8-10.8) K/ul RBC (3.93-5.22) M/uL Hgb (12.0-16.0) g/dl Hct (34.1-44.9) % MCV (80.0-100.0) fL MCH (25.0-34.0) pg MCHC (32.0-36.0) g/dL RDW Std Deviation (36.4-46.3) fL RDW Coeff of Sachin (11.5-14.5) % Plt Count (130-400) K/uL MPV (9.4-12.3) fL Immature Gran % (Auto) % Neut % (Auto) % Lymph % (Auto) % Carter % (Auto) % Eos % (Auto) % Baso % (Auto) % Neut # (Auto) (1.4-6.5) K/uL Lymph # (Auto) (1.2-3.4) K/uL Carter # (Auto) (0.24-0.82) K/uL Eos # (Auto) (0-0.50) K/uL Baso # (Auto) (0-0.2) K/uL Immature Gran # (Auto) (0.00-0.02) K/uL APTT 44.2 H (21.0-31.0) Seconds PTT Ratio 1.6 Sodium (136-145) mmol/L Potassium (3.5-5.1) mmol/L Chloride (98-107) mmol/L Carbon Dioxide (21-32) mmol/L Anion Gap (3-11) BUN (6-23) mg/dl Creatinine (0.6-1.2) mg/dl Est Cr Clr Drug Dosing ml/min Est GFR ( Amer) ml/min Est GFR (Non-Af Amer) ml/min BUN/Creatinine Ratio (10-20) Glucose (70-99(Fasting)) mg/dl Lactate 1.5 (0.4-2.0) mmol/L Calcium (8.5-10.1) mg/dl Magnesium (1.7-2.4) mg/dl Iron (35-150) mcg/dl TIBC (250-450) mcg/dl Unsaturated IBC (155-355) mcg/dl Transferrin % Sat (15-50) % Ferritin (8-388) ng/ml Total Bilirubin (0.2-1.0) mg/dl AST (13-39) U/L ALT (7-52) U/L Alkaline Phosphatase (34-104) U/L Lactate Dehydrogenase (86-244) U/L Troponin I High Sens (0-14) pg/ml B-Natriuretic Peptide 4266 H (0-100) pg/ml Total Protein (6.0-8.3) gm/dl Albumin (3.4-5.0) gm/dl Globulin (2.5-4.0) gm/dl Albumin/Globulin Ratio (0.9-2) Lipase (11-82) U/L Vitamin B12 (180-914) pg/ml Folate (>5.38) ng/ml TSH 04/19/22 04/19/22 04/19/22 Range/Units 09:03 06:48 06:48 WBC (4.8-10.8) K/ul RBC (3.93-5.22) M/uL Hgb (12.0-16.0) g/dl Hct (34.1-44.9) % MCV (80.0-100.0) fL MCH (25.0-34.0) pg MCHC (32.0-36.0) g/dL RDW Std Deviation (36.4-46.3) fL RDW Coeff of Sachin (11.5-14.5) % Plt Count (130-400) K/uL MPV (9.4-12.3) fL Immature Gran % (Auto) % Neut % (Auto) % Lymph % (Auto) % Carter % (Auto) % Eos % (Auto) % Baso % (Auto) % Neut # (Auto) (1.4-6.5) K/uL Lymph # (Auto) (1.2-3.4) K/uL Carter # (Auto) (0.24-0.82) K/uL Eos # (Auto) (0-0.50) K/uL Baso # (Auto) (0-0.2) K/uL Immature Gran # (Auto) (0.00-0.02) K/uL APTT 73.6 H* > 139.0 H* (21.0-31.0) Seconds PTT Ratio 2.7 > 5.1 Sodium (136-145) mmol/L Potassium (3.5-5.1) mmol/L Chloride (98-107) mmol/L Carbon Dioxide (21-32) mmol/L Anion Gap (3-11) BUN (6-23) mg/dl Creatinine (0.6-1.2) mg/dl Est Cr Clr Drug Dosing ml/min Est GFR ( Amer) ml/min Est GFR (Non-Af Amer) ml/min BUN/Creatinine Ratio (10-20) Glucose (70-99(Fasting)) mg/dl Lactate (0.4-2.0) mmol/L Calcium (8.5-10.1) mg/dl Magnesium (1.7-2.4) mg/dl Iron 55 (35-150) mcg/dl TIBC 236 L (250-450) mcg/dl Unsaturated IBC 181 (155-355) mcg/dl Transferrin % Sat 23 (15-50) % Ferritin 758.2 H (8-388) ng/ml Total Bilirubin (0.2-1.0) mg/dl AST (13-39) U/L ALT (7-52) U/L Alkaline Phosphatase (34-104) U/L Lactate Dehydrogenase (86-244) U/L Troponin I High Sens (0-14) pg/ml B-Natriuretic Peptide (0-100) pg/ml Total Protein (6.0-8.3) gm/dl Albumin (3.4-5.0) gm/dl Globulin (2.5-4.0) gm/dl Albumin/Globulin Ratio (0.9-2) Lipase (11-82) U/L Vitamin B12 (180-914) pg/ml Folate (>5.38) ng/ml TSH 04/19/22 Range/Units 06:48 WBC (4.8-10.8) K/ul RBC (3.93-5.22) M/uL Hgb (12.0-16.0) g/dl Hct (34.1-44.9) % MCV (80.0-100.0) fL MCH (25.0-34.0) pg MCHC (32.0-36.0) g/dL RDW Std Deviation (36.4-46.3) fL RDW Coeff of Sachin (11.5-14.5) % Plt Count (130-400) K/uL MPV (9.4-12.3) fL Immature Gran % (Auto) % Neut % (Auto) % Lymph % (Auto) % Carter % (Auto) % Eos % (Auto) % Baso % (Auto) % Neut # (Auto) (1.4-6.5) K/uL Lymph # (Auto) (1.2-3.4) K/uL Carter # (Auto) (0.24-0.82) K/uL Eos # (Auto) (0-0.50) K/uL Baso # (Auto) (0-0.2) K/uL Immature Gran # (Auto) (0.00-0.02) K/uL APTT (21.0-31.0) Seconds PTT Ratio Sodium 128 L (136-145) mmol/L Potassium 3.3 L D (3.5-5.1) mmol/L Chloride 95 L (98-107) mmol/L Carbon Dioxide 21 (21-32) mmol/L Anion Gap 12 H (3-11) BUN 49 H (6-23) mg/dl Creatinine 1.75 H (0.6-1.2) mg/dl Est Cr Clr Drug Dosing 16.8 ml/min Est GFR ( Amer) 31.5 ml/min Est GFR (Non-Af Amer) 27.2 ml/min BUN/Creatinine Ratio 28.0 H (10-20) Glucose 68 L (70-99(Fasting)) mg/dl Lactate (0.4-2.0) mmol/L Calcium 8.4 L (8.5-10.1) mg/dl Magnesium (1.7-2.4) mg/dl Iron (35-150) mcg/dl TIBC (250-450) mcg/dl Unsaturated IBC (155-355) mcg/dl Transferrin % Sat (15-50) % Ferritin (8-388) ng/ml Total Bilirubin (0.2-1.0) mg/dl AST (13-39) U/L ALT (7-52) U/L Alkaline Phosphatase (34-104) U/L Lactate Dehydrogenase (86-244) U/L Troponin I High Sens (0-14) pg/ml B-Natriuretic Peptide (0-100) pg/ml Total Protein (6.0-8.3) gm/dl Albumin (3.4-5.0) gm/dl Globulin (2.5-4.0) gm/dl Albumin/Globulin Ratio (0.9-2) Lipase (11-82) U/L Vitamin B12 (180-914) pg/ml Folate (>5.38) ng/ml TSH PG Care Time/CCT Total # of Minutes Spent Total Time Spent with Patient: Total time spent is greater than 50% in coordination of care (as documented) at patient's floor/unit and/or counseling patient: Coding Level of Care Code 99862 Subseq Hosp Care Lvl 3 Diagnoses Embolic disease of toe I74.3 Adrenal insufficiency E27.40 [id number] kidney injury N17.9; N18.9 Chronic systolic CHF (congestive heart failure) I50.22 CAD (coronary artery disease) I25.10 Hypertension I10 Hypertension type: primary hypertension Hypothyroidism E03.9 Hypothyroidism type: acquired Discoloration of skin of toe L81.9 Elevated transaminase level R74.01 S/P ICD (internal cardiac defibrillator) procedure Z95.810 S/P coronary artery stent placement Z95.5 Stage 3b chronic kidney disease N18.32 Hypomagnesemia E83.42 Hypokalemia E87.6 Hyponatremia E87.1 Rheumatoid arthritis M06.041; M06.042 Laterality: bilateral Rheumatoid arthritis location: hand Rheumatoid factor presence: without rheumatoid factor (1) Rheumatoid arthritis Laterality: bilateral Rheumatoid arthritis location: hand Rheumatoid factor presence: without rheumatoid factor Qualified Code(s): M06.041 - Rheumatoid arthritis without rheumatoid factor, right hand; M06.042 - Rheumatoid arthritis without rheumatoid factor, left hand (2) Hypothyroidism Hypothyroidism type: acquired Qualified Code(s): E03.9 - Hypothyroidism, unspecified (3) Hypertension Hypertension type: primary hypertension Qualified Code(s): I10 - Essential (primary) hypertension
[2022-04-20] MEDS: traMADol HCL 50 MG TABLET PO PRN (08:02)
--- NOTE | 2022-04-20 08:44 | Nephrology Consultation ---
Date of Consultation April 20, 2022 Assessment & Plan (1) Acute kidney injury: * Resolved. Likely related to recent hospitalization for ASCVD (2) Chronic kidney disease, stage III (moderate): * CKD stage G3b/A3 (moderate impairment). 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 Baseline Cr has been 1.4 w/ EGFR 35 cc/min. Urine microscopy has been acellular. UPCR 0.3 (3) Metabolic acidosis: * High AG metabolic acidosis related to MURRAY and low serum chloride * Will provide 1 L 0.9 NS and monitor response * PRP in am History of Present Illness Reason for Consultation: Acidosis Attending Physician: Solitario Sage MD History of Present Illness Ms. Brannon is a 81 year old white female who is seen at the request of [facility] for evaluation of acidosis. Medical records in the EMR were reviewed today and are summarized as follows: Ms. Brannon has CKD stage G3b/A3 (moderate impairment). 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 Baseline Cr has been 1.4 w/ EGFR 35 cc/min. Urine microscopy has been acellular. UPCR 0.3. Ms. 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 In 02/26 Ms. Brannon suffered AMI while visiting [place]. She underwent cardiac catheterization and PCI. Post procedure she suffered ventricular arrhythmia requiring AICD placement. Ms. Brannon was admitted to [facility] 04/18/22 for evaluation of ischemia involving her R foot. US revealed THERMAL CUTTER HAND thrombus vs. disrupted plaque. She was subsequently started on IV heparin and reports that her R foot discomfort is improved. Her toes are less cyanotic. Initial laboratory studies revealed MURRAY w/ Cr 1.87. This has improved to Cr 1.4. Patient has developed mild metabolic acidosis w/ HCO3 19 and AG 31. Allergies Allergy/AdvReac Type Severity Reaction Status Date / Time gabapentin Allergy Unknown Verified 04/18/22 19:05 Home Medications Medication Instructions Recorded Confirmed Type acetaminophen 325 mg tablet 650 mg PO Q4 PRN Pain 03/19/22 04/18/22 History (Tylenol) amiodarone 200 mg tablet 200 mg PO DAILY 03/19/22 04/18/22 History aspirin 81 mg chewable tablet 81 mg PO DAILY 03/19/22 04/18/22 History docusate sodium 100 mg capsule 100 mg PO BID 03/19/22 04/18/22 History ferrous sulfate 325 mg (65 mg 325 mg PO DAILY 03/19/22 04/18/22 History iron) tablet (iron) levothyroxine 100 mcg tablet 100 mcg PO DAILY 03/19/22 04/18/22 History multivitamin 1 tab PO DAILY 03/19/22 04/18/22 History pantoprazole 40 mg tablet,delayed 40 mg PO BID 03/19/22 04/18/22 History release prednisone 5 mg tablet 5 mg PO DAILY 03/19/22 04/18/22 History ticagrelor 90 mg tablet (Brilinta) 90 mg PO Q12 03/19/22 04/18/22 History rotigotine 1 mg/24 hour 2 mg transdermal HS #90 ea 03/22/22 04/18/22 Rx transdermal 24 hour patch hydroxyzine HCl 25 mg tablet 25 mg PO HS PRN Anxiety 04/08/22 04/18/22 History metoprolol succinate 25 mg 25 mg PO DAILY 04/08/22 04/18/22 History tablet,extended release 24 hr omeprazole 20 mg capsule,delayed 20 mg PO DAILY 04/08/22 04/18/22 History release thiamine HCl (vitamin B1) 100 mg 100 mg PO DAILY 04/08/22 04/18/22 History tablet furosemide 40 mg tablet 40 mg PO DAILY PRN weight gain 04/14/22 04/18/22 History senna-docusate sodium tablet 1 tab PO BID PRN Constipation 04/14/22 04/18/22 History tramadol 50 mg tablet 50 mg PO Q6H PRN Pain #240 tabs 04/14/22 04/18/22 Rx atorvastatin 80 mg tablet 80 mg PO DAILY #90 tabs 04/16/22 04/18/22 Rx apixaban 2.5 mg tablet (Eliquis) 2.5 mg PO BID #60 tabs 04/19/22 Rx Patient History Medical History Acid reflux Acute encephalopathy Acute hyponatremia Acute SC Acute UTI CAD (coronary artery disease) SC in [place] in 02/2022. 1 stent placed (believe LCx, but not sure). 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 Dehydration, mild DVT prophylaxis Dysuria Elevated troponin Hiatal hernia History of Hodgkin's lymphoma S/P RADIATION/CHEMO (2000) History of pelvic fracture Hyperlipidemia Hypertension Hypothyroidism Ischemic cardiomyopathy Mixed stress and urge urinary incontinence Nausea & vomiting Restless leg syndrome Rheumatoid arthritis ON PLAQUENIL AND CHRONIC PREDNISONE 7.5MG DAILY Sciatica Scoliosis Stage 3b chronic kidney disease Ventricular tachycardia Surgical History H/O foot surgery 2ND RT TOE REMOVED History of bilateral cataract extraction RIGHT CATARACT EXTRACTION WITH IOL= 04/05/18= MAC SEDATION AT [facility] History of colonoscopy History of gynecologic surgery ANTERIOR AND POSTERIOR REPAIR - colporrhaphy (for pelvic relaxation) History of removal of cyst HEAD (BENIGN) History of tonsillectomy History of tooth extraction History of total knee replacement RT History of [place]rologic surgery [place] [facility] [place] coronary artery stent placement S/P ICD (internal cardiac defibrillator) procedure S/P vaginal hysterectomy Family History Mother , age 80 Cardiac disorder Family history of lung cancer Brother Diabetes Family history of lung cancer Family history of diabetes mellitus Daughter Breast cancer Father , age 57 Cardiac disorder Grandmother Diabetes Aunt Ovarian cancer paternal aunt Grandmother (Paternal) Family history of diabetes mellitus Other Cancer Heart disease No family history of adverse response to anesthesia No family history of bleeding disorder Denies family history of Colon cancer Colorectal cancer Social History Smoking Status: Never smoker Tobacco Type: Cigarettes Cigarettes Per Day: QUIT + 30 YEARS AGO; Second Hand Exposure: No; Do You Dip or Chew Tobacco: No; Hx Alcohol Use: No Hx Substance Use: No Preferred Language: Mozambican Communication Ability: Effective Visual Impairment: No Limitations Hearing Ability: Use of Hearing Aid Tax Services Intern Required: No Beliefs That Will Affect Care: None marital status: / Current Living Situation: Personal Care Facility Current Living Situation Comment: [facility] 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 [employer] Other Information That Helps Us Care for You: No Feels Safe at Home: Yes Safety Concerns: Feels Safe At This Time Childhood Exposure to Second-Hand Smoke: Yes (parent smoked) Dental Care, Regularly: Yes Sunscreen Use: Yes (occasionally) Assistive Devices: Walker Review of Systems Constitutional: no fever Eyes: no worsening vision Ear, Nose, Mouth, Throat: no problem reported Respiratory: no problem reported Cardiovascular: no chest pain Gastrointestinal: no abdominal pain, no vomiting and no diarrhea/loose stools Genitourinary: no dysuria Physical Exam Constitutional: not in distress Eyes: PERRL ENMT: external ear and nose normal, oropharynx normal Neck: trachea midline, no thyromegaly Respiratory: normal respiratory effort, lungs clear to auscultation Cardiovascular: Rate/Rhythm: regular rate and regular rhythm AICD palpable beneath L clavicle Gastrointestinal (Abdomen): normal bowel sounds, soft, nontender, no hepatosplenomegaly Skin: R great toe appears dusky [facility] Vital Signs (Past 12 Hours) Vital Signs Temp Pulse Pulse Resp BP Pulse Ox O2 Del Method 04/20/22 07:14 36.4 C L 56 L 16 132/79 97 Room Air 04/20/22 03:39 36.5 C 55 L 18 103/63 94 Room Air 04/19/22 23:27 36.5 C 55 L 18 103/68 97 04/19/22 22:25 54 L Laboratory Results Laboratory Tests 03/06/22 04/20/22 04/20/22 09:35 06:38 06:38 WBC 8.21 Hgb 9.3 L Hct 28.4 L Plt Count 223 Sodium 138 D Potassium 3.3 L Chloride 88 L Carbon Dioxide 19 L BUN 36 H Creatinine 1.20 1.41 H D Glucose 76 PG Care Time/CCT Total # of Minutes Spent Total Time Spent with Patient: Total time spent is greater than 50% in coordination of care (as documented) at patient's floor/unit and/or counseling patient: Coding Level of Care Code 99661 Inpt Consult Level 5 Diagnoses Acute kidney injury N17.9 Chronic kidney disease, stage III (moderate) N18.30 Metabolic acidosis E87.2
[2022-04-20] MEDS: HYDROCORTISONE SOD 20 MG in SYRINGE 0 ML IV SCH ×3 (09:15→20:08)
[2022-04-20] MEDS: CLOPIDOGREL BISULFATE 75 MG TAB PO SCH (09:16)
[2022-04-20] MEDS: PANTOprazole 40 MG TAB PO SCH ×2 (09:34→16:36)
[2022-04-20] MEDS: METOPROLOL SUCC 25MG EXT REL TAB PO SCH ×2 (09:34→09:41)
[2022-04-20] MEDS: THIAMINE HCL 100 MG TAB PO SCH (09:34)
[2022-04-20] MEDS: AMIODARONE 200 MG TAB PO SCH (09:34)
[2022-04-20] MEDS: ROTIGOTINE TD SCH ×2 (09:35→20:04)
--- NOTE | 2022-04-20 10:46 | Gastrointestinal Consultation ---
Date of Consultation April 20, 2022 Assessment & Plan (1) Hiatal hernia: (2) Nausea: Plan Patient is a 81 yo female with intrathoracic stomach, large hiatal hernia, & recent findings concerning for cholecystitis. These issues have been evaluated by surgical services during a tertiary admission at [facility] and unfortunately it was felt that due to patient's cardiovascular comorbidities, she was not a candidate for repair of the hernia and intrathoracic as well as fo r a cholecystectomy. Her WBC count is appropriate, she is afebrile, has no jaundice or elevated LFTs. Given the lipase elevation with epigastric pain, we can update her CT scan however beyond that there is little to offer at this facility beyond symptom management. Would ensure she is on Protonix 40 mg BID, Famotidine 20 mg BID, Carafate 1 gm four times daily, and anti-emetic therapy prn. Follow LFTs. Do not trend Lipase. History of Present Illness Reason for Consultation: Abdominal pain, intrathoracic stomach Attending Physician: Solitario Sage MD History of Present Illness Patient is a 81 yo female with CAD with recent OK status post PCI and ICD placement in [place] in February 2022, adrenal insufficiency, arterterial occlusion, CKD3, HLD, chronic systolic CHF, ischemic cardiomyopathy, SNHL, JASON, CTS, cervical radiculopathy, RLS, & chronic hyponatremia. She was recently hospitalized and subsequently transferred to [facility] and there were concerns of cholecystitis on imaging. She also had imaging findings of intrathoracic stomach with a large hiatal hernia. She notes that she was evaluated at [place] while hospitalized, but unfortunately due to her cardiac status they felt that she was too high risk to pursue a cholecystectomy and cardiothoracic intervention for the intrathoracic stomach. She has had intermittent LFT elevation felt to be associated with the gallbladder. She notes intermittent dry heaving and epigastric pain. She presented back to [facility] with dusky discoloration of the tip of the right great toe on 04/15/22. There was pain as well. Patient has been prescribed Aspirin and Brilinta for these issues, however since admission is on a heparin drip and under the care of the vascular team. Bilirubin, AST, & ALT presently normal. Lipase has been mildly elevated on 2 occasions. No updated abdominal imaging available at this time. Last EGD in 2018. She was noted to have a large hiatal hernia and was referred to a surgeon, however she decided not to have surgery at that time. She notes dry-heaving intermittently and intermittent epigastric pain. Her home med list shows Protonix 40 mg BID & Omeprazole 20 mg daily but she is unsure of which she is taking. Allergies Allergy/AdvReac Type Severity Reaction Status Date / Time gabapentin Allergy Unknown Verified 04/18/22 19:05 Home Medications Medication Instructions Recorded Confirmed Type acetaminophen 325 mg tablet 650 mg PO Q4 PRN Pain 03/19/22 04/18/22 History (Tylenol) amiodarone 200 mg tablet 200 mg PO DAILY 03/19/22 04/18/22 History aspirin 81 mg chewable tablet 81 mg PO DAILY 03/19/22 04/18/22 History docusate sodium 100 mg capsule 100 mg PO BID 03/19/22 04/18/22 History ferrous sulfate 325 mg (65 mg 325 mg PO DAILY 03/19/22 04/18/22 History iron) tablet (iron) levothyroxine 100 mcg tablet 100 mcg PO DAILY 03/19/22 04/18/22 History multivitamin 1 tab PO DAILY 03/19/22 04/18/22 History pantoprazole 40 mg tablet,delayed 40 mg PO BID 03/19/22 04/18/22 History release prednisone 5 mg tablet 5 mg PO DAILY 03/19/22 04/18/22 History ticagrelor 90 mg tablet (Brilinta) 90 mg PO Q12 03/19/22 04/18/22 History rotigotine 1 mg/24 hour 2 mg transdermal HS #90 ea 03/22/22 04/18/22 Rx transdermal 24 hour patch hydroxyzine HCl 25 mg tablet 25 mg PO HS PRN Anxiety 04/08/22 04/18/22 History metoprolol succinate 25 mg 25 mg PO DAILY 04/08/22 04/18/22 History tablet,extended release 24 hr omeprazole 20 mg capsule,delayed 20 mg PO DAILY 04/08/22 04/18/22 History release thiamine HCl (vitamin B1) 100 mg 100 mg PO DAILY 04/08/22 04/18/22 History tablet furosemide 40 mg tablet 40 mg PO DAILY PRN weight gain 04/14/22 04/18/22 History senna-docusate sodium tablet 1 tab PO BID PRN Constipation 04/14/22 04/18/22 History tramadol 50 mg tablet 50 mg PO Q6H PRN Pain #240 tabs 04/14/22 04/18/22 Rx atorvastatin 80 mg tablet 80 mg PO DAILY #90 tabs 04/16/22 04/18/22 Rx apixaban 2.5 mg tablet (Eliquis) 2.5 mg PO BID #60 tabs 04/19/22 Rx Patient History Medical History Acid reflux Acute encephalopathy Acute hyponatremia Acute OK Acute UTI CAD (coronary artery disease) OK in [place] in 02/2022. 1 stent placed (believe LCx, but not sure). 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 Dehydration, mild DVT prophylaxis Dysuria Elevated troponin Hiatal hernia History of Hodgkin's lymphoma S/P RADIATION/CHEMO (2000) History of pelvic fracture Hyperlipidemia Hypertension Hypothyroidism Ischemic cardiomyopathy Mixed stress and urge urinary incontinence Nausea & vomiting Restless leg syndrome Rheumatoid arthritis ON PLAQUENIL AND CHRONIC PREDNISONE 7.5MG DAILY Sciatica Scoliosis Stage 3b chronic kidney disease Ventricular tachycardia Surgical History H/O foot surgery 2ND RT TOE REMOVED History of bilateral cataract extraction RIGHT CATARACT EXTRACTION WITH IOL= 04/05/18= MAC SEDATION AT [facility] History of colonoscopy History of gynecologic surgery ANTERIOR AND POSTERIOR REPAIR - colporrhaphy (for pelvic relaxation) History of removal of cyst HEAD (BENIGN) History of tonsillectomy History of tooth extraction History of total knee replacement RT History of urologic surgery URETEROLYSIS- 04/1995 [facility] [place] S/P coronary artery stent placement S/P ICD (internal cardiac defibrillator) procedure S/P vaginal hysterectomy Family History Mother , age 80 Cardiac disorder Family history of lung cancer Brother Diabetes Family history of lung cancer Family history of diabetes mellitus Daughter Breast cancer Father , age 57 Cardiac disorder Grandmother Diabetes Aunt Ovarian cancer paternal aunt Grandmother (Paternal) Family history of diabetes mellitus Other Cancer Heart disease No family history of adverse response to anesthesia No family history of bleeding disorder Denies family history of Colon cancer Colorectal cancer Social History Smoking Status: Never smoker Tobacco Type: Cigarettes Cigarettes Per Day: QUIT + 30 YEARS AGO; Second Hand Exposure: No; Do You Dip or Chew Tobacco: No; Hx Alcohol Use: No Hx Substance Use: No Preferred Language: Bengali Communication Ability: Effective Visual Impairment: No Limitations Hearing Ability: Use of Hearing Aid Burner Technician Required: No Beliefs That Will Affect Care: None marital status: / Current Living Situation: Personal Care Facility Current Living Situation Comment: [facility] 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 [employer] Other Information That Helps Us Care for You: No Feels Safe at Home: Yes Safety Concerns: Feels Safe At This Time Childhood Exposure to Second-Hand Smoke: Yes (parent smoked) Dental Care, Regularly: Yes Sunscreen Use: Yes (occasionally) Assistive Devices: Walker Review of Systems Constitutional: no fever and no chills Respiratory: no cough and no dyspnea Cardiovascular: no chest pain Gastrointestinal: + abdominal pain and + nausea; no vomiting and no change in bowel habits Integumentary: + change in skin color Hematologic / Lymphatic: no unexplained weight loss Physical Exam Constitutional: no acute distress Respiratory: normal respiratory effort Cardiovascular: Rate/Rhythm: regular rate Gastrointestinal (Abdomen): normal bowel sounds, soft, nontender, no hepatosplenomegaly Musculoskeletal: Head/Neck/Chest: normocephalic Psychiatric: Orientation: alert and oriented x 3 Results & Data ([facility]) Vital Signs (Past 12 Hours) Vital Signs Temp Pulse Resp BP Pulse Ox O2 Del Method 04/20/22 07:14 36.4 C L 56 L 16 132/79 97 Room Air 04/20/22 03:39 36.5 C 55 L 18 103/63 94 Room Air 04/19/22 23:27 36.5 C 55 L 18 103/68 97 PG Care Time/CCT Total # of Minutes Spent Total Time Spent with Patient: Total time spent is greater than 50% in coordination of care (as documented) at patient's floor/unit and/or counseling patient: Coding Level of Care Code 55987 Initial Inpt Care Lvl 3 Diagnoses Hiatal hernia K44.9 Nausea R11.0
[2022-04-20] MEDS ORDERED: SODIUM CHLORIDE 0.9% 1000ML 1,000 ML IV SCH (12:30)
[2022-04-20] MEDS: SUCRALFATE 1 GM/10 ML UDC PO SCH ×3 (13:33→20:08)
--- NOTE | 2022-04-20 13:45 | Electrocardiogram Report ---
Test Reason : Blood Pressure : / mmHG Vent. Rate : 056 BPM Atrial Rate : 056 BPM P-R Int : 162 ms QRS Dur : 094 ms QT Int : 500 ms P-R-T Axes : 037 -31 -04 degrees QTc Int : 482 ms Poor data quality, interpretation may be adversely affected Sinus bradycardia Possible Left atrial enlargement Left axis deviation Lateral infarct (cited on or before 06-MAR-2022) Abnormal ECG When compared with ECG of 18-APR-2022 15:11, Right bundle branch block is no longer Present Confirmed by Elieser Posey ([id number]) on 04/20/2022 1:45:10 PM Referred By: Ellis Morse Confirmed By:Elieser Posey
--- NOTE | 2022-04-20 17:25 | Cardiology Progress Note ---
Date of Service April 20, 2022 Assessment & Plan (1) Discoloration of skin of toe: Plan: 2. Coronary artery disease --STEMI 02/2022, PCI of circumflex 3. HFrEF/Ischemic cardiomyopathy--EF40-45%, Inferolateral wall motion abnormality 4. Moderate MR 5. Vtach status post ICD 6. Acute on chronic renal insufficiency 7. Anemia 8. Hyponatremia 9. 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 Grossly positive bubble study most consistent with PFO Stable from a cardiac standpoint. No significant congestion on exam Respiratory status at recent baseline. Toes more cyanotic today diffusely. Low suspicion for embolic event. Continue clopidogrel, Eliquis for at least 3 months Continue to hold Lasix. Can resume as needed for weight >100 lbs at rehab Potassium supplementation today. Resume spironolactone 12.5 mg daily Continue current metoprolol, amiodarone. Possibly discontinue amiodarone as an outpatient Continue statin From a cardiovascular standpoint possible discharge back to personal care Follow-up with CHF clinic as scheduled Repeat arterial duplex in 1 month Admission and Anticipated Discharge Date Admission Date: April 19, 2022 Subjective Feeling better today. Up walking the halls with PT. Denied significant shortness of breath or chest pain. Telemetry reviewedno events Review of Systems Review of Systems: All systems reviewed & are unremarkable except as noted in HPI & below Physical Exam Physical Exam: General: No acute distress HEENT: Sclerae anicteric. Neck: No appreciable JVD. Lungs: Clear to auscultation bilaterally without rales, rhonchi or wheezes. Cardiac: Regular rate and rhythm. S1-S2 normal. 2 out of 6 holosystolic murmur at the apex. ICD in place, Incision well-healed Abdomen: Soft Diffuse mild tenderness Extremities/vascular: --No edema -- Distal extremities cool, toes more cyanotic today. No ulceration.Post resection of second toe --Right femoral pulse 2+, sluggish capillary refill, PT pulses 2+ bilaterally. 2+ DP on the left 1+ DP on the right Neurologic: Nonfocal Psychiatric: Affect appropriate. Alert and oriented. Results & Data ([facility]) Vital Signs (Past 12 Hours) Vital Signs Temp Pulse Pulse Resp BP BP Pulse Ox 04/20/22 16:00 97.5 F L 55 L 17 124/78 96 04/20/22 12:48 55 L 04/20/22 11:22 97.7 F 54 L 112/68 97 04/20/22 07:14 97.5 F L 56 L 16 132/79 97 O2 Del Method 04/20/22 16:00 Room Air 04/20/22 12:48 04/20/22 11:22 Room Air 04/20/22 07:14 Room Air PG Care Time/CCT Total # of Minutes Spent Total Time Spent with Patient: Total time spent is greater than 50% in coordination of care (as documented) at patient's floor/unit and/or counseling patient: Coding Level of Care Code 73648 Subseq Hosp Care Lvl 3 Diagnoses Discoloration of skin of toe L81.9
[2022-04-20] MEDS ORDERED: DICYCLOMINE HCL 10 MG CAP PO PRN (17:52)
[2022-04-20] MEDS: SPIRONOLACTONE 12.5 MG TAB PO SCH (18:34)
[2022-04-20] MEDS ORDERED: HEPARIN: STOP ORDER ONE (20:00)
[2022-04-20] MEDS: ATORVASTATIN 40 MG TAB PO SCH (20:07)
[2022-04-20] MEDS: APIXABAN 2.5 MG TAB PO SCH (20:07)
[2022-04-20] MEDS: FAMOTIDINE 20 MG TAB PO SCH (20:07)
[2022-04-21] MEDS: LEVOTHYROXINE SODIUM 100 MCG TABLET PO SCH (05:15)
[2022-04-21 06:25] LABS: Basophils # (auto) 0.01 K/uL (0-0.2); Basophils % (auto) 0.1 %; Eosinophils # (auto) 0.01 K/uL (0-0.50); Eosinophils % (auto) 0.1 %; Hematocrit (blood only) 29.2 % (34.1-44.9); Hemoglobin 9.4 g/dl (12.0-16.0); Immature Granulocytes # (auto) 0.06 K/uL (0.00-0.02); Immature Granulocytes % (auto) 0.8 %; Lymphocytes % (auto) 16.1 %; Mean Corpuscular Hemoglobin 30.7 pg (25.0-34.0); Mean Corpuscular Hgb Conc 32.2 g/dL (32.0-36.0); Mean Corpuscular Volume 95.4 fL (80.0-100.0); Mean Platelet Volume 8.7 fL (9.4-12.3); Monocytes # (auto) 0.54 K/uL (0.24-0.82); Monocytes % (auto) 7.3 %; Neutrophils # (auto) 5.62 K/uL (1.4-6.5); Neutrophils % (auto) 75.6 %; Platelet Count 253 K/uL (130-400); RDW Coefficient of Variation 17.8 % (11.5-14.5); RDW Standard Deviation 59.3 fL (36.4-46.3); Red Blood Count 3.06 M/uL (3.93-5.22); White Blood Count 7.44 K/ul (4.8-10.8)
[2022-04-21 06:28] LABS: Albumin Level 3.4 gm/dl (3.4-5.0); BUN Creatinine Ratio 21.8 (10-20); Calcium 8.4 mg/dl (8.5-10.1); Creatinine Clr Calc Pharmacy 22.1 ml/min; Est GFR (Non-African American) 37.9 ml/min; Potassium 4.2 mmol/L (3.5-5.1)
[2022-04-21 06:33] LABS: Partial Thromboplastin Ratio 1.3; Partial Thromboplastin Time 34.7 Seconds (21.0-31.0)
--- NOTE | 2022-04-21 07:25 | Hospitalist Progress Note ---
Date of Service April 21, 2022 Assessment & Plan (1) Embolic disease of toe: Plan: [facility] with ICD placement for sustained Ventricular Arrhythmia. Lactic 3.2 on admit, normal on repeat w/ IVF Admitted in March for possible sepsis/acute cholecystitis with elevated LFTs, however patient reports when transferred to [place], felt sepsis 2nd to cardiogenic shock treated with milrinone gtt and diuretics and discharge to rehab 03/30 (reported had mottling of her right toes/extension up her foot at discharge) States was given lasix 40mg PO by taqueria for 2lb weight gain on tuesday Progression of pain/blue 1st toe on RIGHT FOOT -- had U/S with Dr Bose, which showed possible focal mobile thrombus of right external iliac artery responsible for embolus to her toe as cardiac cath in February performed via right CLINICAL IMMUNOLOGIST access Arterial Duplex: Moderate atherosclerotic plaque within the right lower extremity. No elevated velocities to suggest a hemodynamically significant stenosis by sonography. Predominantly biphasic flow within the right lower extremity. Monophasic flow within portions of the right calf vessels, as above. ECHO w/ LVEF 40-45%, moderate MR, borderline pulmonary HTN. +bubble study (compared to prior study 03/19, EF slightly improved) On Brilinta/Aspirin post PCI --> given Plavix 300mg 04/19, continue 75mg daily ELIQUIS 2.5mg BID started PM 04/20 given renal function -- continue at d/c at least 3 months (consider longer given probable PFO w/ + bubble study) DISCONTINUED ASPIRIN NO BLEEDING reported episode n/v 04/19, resolved with pain control. Lactic/LDH wnl checked to r/o ischemic gut GI consulted, added pepcid BID, carafate QID and continue at d/c for hiatal hernia 04/21 BNP elevated prior, however provided 500cc NSS per nephrology for volume depl etion and high anion gap with low Chloride level Na stable on repeat, chlroide improved Bicarb low, ordered NaHCO3 x 2 doses per nephrology Cr improved with IVF/spironolactone to 1.33 Weight 103lb, given dose lasix 20mg PO x 1 this morning per discussion with cardiology Also, given stress dose steroids hydrocortisone 20mg IV TID 04/20, decreased to 10mg IV TID for today and resume usual 5mg thereafter Will need close f/u CHF clinic --> stable for d/c from cardiac standpoint and need repeat arterial studies in 1 month. (2) Adrenal insufficiency: Plan: suspected in patient with chronic prednisone use Also was hospitalized for cardiogenic shock in the past month, unclear if ever got stress dose steroids at that time. ordered hydrocortisone IV for 04/20, titrated to 20mg TID for today then usual 5mg for tomorrow given abd discomfort/n/v with lower BPs Monitor response to decreasing dose plans for 5mg to resume in AM (3) Eoxih-ly-vbuxwwe kidney injury: Plan: 2nd to dehydration, given lasix at [facility] for 3lb weight gain holding lasix, IVF ordered on admission, none further given elevated BNP Renal dose meds when able/avoid nephrotoxic agents when able Cr improved, but with anion gap to 31 04/20 due to low serum chloride 500cc NSS provided Cr 1.31 on am labs, spirinolactone 12.5mg resumed 04/20, lasix 20mg PO x 1 today NaHCO3 x 2 doses ordered per nephrology, repeat urine studyordered for AM BMP in AM (4) Chronic systolic CHF (congestive heart failure): Plan: Compensated, however slight JVD/orthopnea reported 04/21 after IVF/steroids 04/20 2D echo as above Cards on consult Monitor weights/intake (+1800cc yesterday, up 3L since admit, wt 103lb today, baseline weight ~100lb) t Continued on metoprolol Entresto remains on hold, spironolactone resumed 12.5mg 04/20, continued Lasix 20mg PO x 1 today, resume as weights >100lb Close f/u CHF clinic at discharge (5) CAD (coronary artery disease): Plan: Status post SD angioplasty with stent placement to circumflex. Patient with post SD VT status post ICD placement now on amiodarone therapy Aspirin/brilinta --> plavix/Eliquis as above continue amiodarone, atorvastatin, metoprolol consideration for discontinuing amiodarone outpatient No CP reported like prior SD this summer (6) Hypertension: Plan: BP stable 124/78 continue BB resumed spironolactone 12.5mg daily 04/20, lasix 20mg 04/21 continue to hold Entresto as outlined Monitor (7) Hypothyroidism: Plan: Chronic, and maintained on Synthroid 100mcg daily --appears last TSH was elevated to 13.75 in march (was 11 prior in February), likely reactive Repeat TSH wnl 2.58 consideration to d/c amiodarone outpatient (8) Discoloration of skin of toe: Plan: as above (9) Elevated transaminase level: Plan: ALP elevated -- see above, HIDA negative at [place] cardiogenic shock LFTs all wnl on repeat (10) S/P ICD (internal cardiac defibrillator) procedure: Plan: noted, placed for V arrhythmia s/p PCI for SD in [place] (11) S/P coronary artery stent placement: (12) Stage 3b chronic kidney disease: Plan: prior to SD/recent hospitalizations Cr was closer to 1 (up to 2.24 prior to transfer to [place] in March) Cr 1.87 on admit, repeat 1.75 --> 1.4 with additional IVF 04/19 Additional 500cc for 04/20 lasix/spironolactone as outlined Cr 1.3 Nephrology consulted as above BMP/urine studies in AM (13) Hypomagnesemia: Plan: 1.5 on admit, IV replacement ordered wnl on repeat, added to AM labs (14) Hypokalemia: Plan: 3.3 on am labs, 20meq po replacement ordered previously, resumed spironolactone 04/20 K wnl on am labs monitor (15) Hyponatremia: Plan: chronic issue based on prior labs appears usually closer to 130s na 127 on admit, likely 2nd to dehydration/volume drop from lasix given at [facility] IVF ordered --> Na 128 on repeat and closer to baseline finish current bag, repeat level in AM add urine studies if needed based on repeat levels repeat Na 138? Repeat about same as baseline lasix as above, sodium bicarb as nephrology repeat TSH wnl BMP in AM (16) Rheumatoid arthritis: Plan: on chroninc prednisone, stress dosing as above (17) Metabolic acidosis: Plan: as above, improving nephro on consult labs in AM (18) Hiatal hernia: Plan: prior not surgically corrects, partially intrathoracic gi consulted continue PPI BID, added pepcid BID/carafate and would continue at d/c consideration for repeat CTAP but no additional offerings can f/u outpatient if continued issues reported by GI discussion this morning Plan continued inpatient stay given lasix x 1, bicarb ordered by nephrology monitor I&O, weights, any bleeding monitor labs in AM, if stable d/c to [facility] w/ close CHF follow up and repeat arterial studies with Dr Bose 1 month Admission and Anticipated Discharge Date Admission Date: April 19, 2022 Subjective Patient evaluated this morning. Doing well. Some shortness of breath with laying flat. Weight 103lb. Discussed weight up, given lasix per cardiology. Will need close CHF f/u. No chest pain, occasional GI twinge from hiatal hernia but improved with the pepcid and carafate. Denies any bleeding in urine or stool since placed on eliquis. Was going to d/c today but wanting to stay per nephrology for sodium bicarb. Discussed will plan to transition back to her usual prednisone for AM but given stress dosing, decreased for today. Urology to obtain urine studies in AM Questions/concerns addressed. Review of Systems Review of Systems: All systems reviewed & are unremarkable except as noted in HPI & below Physical Exam Physical Exam: General: WD frail eldrly female sitting up in bed, NAD alert to person/place/time, cooperative HEENT: head normocephalic, atraumatic, mmm, trachea midline without deviation, slight JVD Chest: ICD in place, incision well healed Resp: CTAB, diminished in the bases, no rales/wheezing, on room air94% CV: regular, rate 64bpm), +holosystolic murmur at apex, pulses palpable b/l LE, feet warm bilaterally RIGHT great toe with dusky discoloration (much less), minimally tender decreased GI: +BS, decreased epigastric discomfort, soft, no guarding/rebound MSK/Neuro: moves all extremities R great toe with dusky appearance, non tender to palpation. claw toe 2nd digit right foot strength 5/5 bilaterally no focal deficit diminished DP on the right compared to the left Psych: AOx3, pleasant and cooperative Skin: see above, otherwise warm,dry Results & Data Results & Data ([facility]) Vital Signs (Past 12 Hours) Vital Signs Temp Pulse Resp BP Pulse Ox O2 Del Method 04/21/22 03:00 36.5 C 68 18 121/69 94 Room Air 04/20/22 23:00 36.8 C 64 18 118/76 96 Room Air Laboratory Results 04/21/22 04/21/22 04/21/22 Range/Units 05:45 05:45 05:45 WBC 7.44 (4.8-10.8) K/ul RBC 3.06 L (3.93-5.22) M/uL Hgb 9.4 L (12.0-16.0) g/dl Hct 29.2 L (34.1-44.9) % MCV 95.4 (80.0-100.0) fL MCH 30.7 (25.0-34.0) pg MCHC 32.2 (32.0-36.0) g/dL RDW Std Deviation 59.3 H (36.4-46.3) fL RDW Coeff of Sachin 17.8 H (11.5-14.5) % Plt Count 253 (130-400) K/uL MPV 8.7 L (9.4-12.3) fL Immature Gran % (Auto) 0.8 % Neut % (Auto) 75.6 % Lymph % (Auto) 16.1 % Grant % (Auto) 7.3 % Eos % (Auto) 0.1 % Baso % (Auto) 0.1 % Neut # (Auto) 5.62 (1.4-6.5) K/uL Lymph # (Auto) 1.20 (1.2-3.4) K/uL Grant # (Auto) 0.54 (0.24-0.82) K/uL Eos # (Auto) 0.01 (0-0.50) K/uL Baso # (Auto) 0.01 (0-0.2) K/uL Immature Gran # (Auto) 0.06 H (0.00-0.02) K/uL APTT 34.7 H (21.0-31.0) Seconds PTT Ratio 1.3 Sodium 128 L D (136-145) mmol/L Potassium 4.2 D (3.5-5.1) mmol/L Chloride 99 (98-107) mmol/L Carbon Dioxide 19 L (21-32) mmol/L Anion Gap 10 (3-11) BUN 29 H (6-23) mg/dl Creatinine 1.33 H (0.6-1.2) mg/dl Est Cr Clr Drug Dosing 22.1 ml/min Est GFR ( Amer) 44.0 ml/min Est GFR (Non-Af Amer) 37.9 ml/min BUN/Creatinine Ratio 21.8 H (10-20) Glucose 129 H (70-99(Fasting)) mg/dl Calcium 8.4 L (8.5-10.1) mg/dl Albumin 3.4 (3.4-5.0) gm/dl PG Care Time/CCT Total # of Minutes Spent Total Time Spent with Patient: Total time spent is greater than 50% in coordination of care (as documented) at patient's floor/unit and/or counseling patient: Coding Level of Care Code 76049 Subseq Hosp Care Lvl 3 Diagnoses Embolic disease of toe I74.3 Adrenal insufficiency E27.40 Glraz-dw-auwizlk kidney injury N17.9; N18.9 Chronic systolic CHF (congestive heart failure) I50.22 CAD (coronary artery disease) I25.10 Hypertension I10 Hypertension type: primary hypertension Hypothyroidism E03.9 Hypothyroidism type: acquired Discoloration of skin of toe L81.9 Elevated transaminase level R74.01 S/P ICD (internal cardiac defibrillator) procedure Z95.810 S/P coronary artery stent placement Z95.5 Stage 3b chronic kidney disease N18.32 Hypomagnesemia E83.42 Hypokalemia E87.6 Hyponatremia E87.1 Rheumatoid arthritis M06.041; M06.042 Laterality: bilateral Rheumatoid arthritis location: hand Rheumatoid factor presence: without rheumatoid factor Metabolic acidosis E87.2 Hiatal hernia K44.9 (1) Rheumatoid arthritis Laterality: bilateral Rheumatoid arthritis location: hand Rheumatoid factor presence: without rheumatoid factor Qualified Code(s): M06.041 - Rheumatoid arthritis without rheumatoid factor, right hand; M06.042 - Rheumatoid arthritis without rheumatoid factor, left hand (2) Hypothyroidism Hypothyroidism type: acquired Qualified Code(s): E03.9 - Hypothyroidism, unspecified (3) Hypertension Hypertension type: primary hypertension Qualified Code(s): I10 - Essential (primary) hypertension
[2022-04-21] MEDS: SPIRONOLACTONE 12.5 MG TAB PO SCH (08:39)
[2022-04-21] MEDS: HYDROCORTISONE SOD 20 MG in SYRINGE 0 ML IV SCH (08:39)
[2022-04-21] MEDS: THIAMINE HCL 100 MG TAB PO SCH (08:40)
[2022-04-21] MEDS: METOPROLOL SUCC 25MG EXT REL TAB PO SCH (08:40)
[2022-04-21] MEDS: APIXABAN 2.5 MG TAB PO SCH ×2 (08:40→20:24)
[2022-04-21] MEDS: SUCRALFATE 1 GM/10 ML UDC PO SCH ×4 (08:40→20:22)
[2022-04-21] MEDS: FAMOTIDINE 20 MG TAB PO SCH ×2 (08:40→20:25)
[2022-04-21] MEDS: CLOPIDOGREL BISULFATE 75 MG TAB PO SCH (08:40)
[2022-04-21] MEDS: AMIODARONE 200 MG TAB PO SCH (08:40)
[2022-04-21] MEDS: PANTOprazole 40 MG TAB PO SCH ×2 (08:41→17:33)
--- NOTE | 2022-04-21 09:00 | Nephrology Progress Note ---
Date of Service April 21, 2022 Assessment & Plan (1) Acute kidney injury: Plan: * Resolved. Likely related to recent hospitalization for ASCVD (2) Chronic kidney disease, stage III (moderate): Plan: * CKD stage G3b/A3 (moderate impairment). 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 Baseline Cr has been 1.4 w/ EGFR 35 cc/min. Urine microscopy has been acellular. UPCR 0.3 (3) Metabolic acidosis: Plan: * Chloride is WNL this am and AG has corrected following 0.9NS administration * Serum sodium is mildly low this am, HCO3 is 19. Will provide NaHCO3 650 mg po BID x 2 doses * PRP, urine osmolality in am Admission and Anticipated Discharge Date Admission Date: April 19, 2022 Subjective Ms. Brannon was evaluated in her hospital room this morning. She tolerated gentle hydration yesterday without dyspnea. She reports that the cyanosis involving her R foot has improved. Review of Systems Constitutional: no fever Eyes: no worsening vision Ear, Nose, Mouth, Throat: no problem reported Respiratory: no problem reported Cardiovascular: no chest pain Gastrointestinal: no abdominal pain, no vomiting and no diarrhea/loose stools Genitourinary: no dysuria Physical Exam Constitutional: not in distress Eyes: PERRL ENMT: external ear and nose normal, oropharynx normal Neck: trachea midline, no thyromegaly Respiratory: normal respiratory effort, lungs clear to auscultation Cardiovascular: Rate/Rhythm: regular rate and regular rhythm Gastrointestinal (Abdomen): normal bowel sounds, soft, nontender, no hepatosplenomegaly Results & Data ([facility]) Vital Signs (Past 12 Hours) Vital Signs Temp Pulse Resp BP Pulse Ox O2 Del Method 04/21/22 03:00 36.5 C 68 18 121/69 94 Room Air 04/20/22 23:00 36.8 C 64 18 118/76 96 Room Air Laboratory Results Laboratory Tests 04/21/22 04/21/22 05:45 05:45 WBC 7.44 Hgb 9.4 L Hct 29.2 L Plt Count 253 Sodium 128 L D Potassium 4.2 D Chloride 99 Carbon Dioxide 19 L BUN 29 H Creatinine 1.33 H Glucose 129 H Calcium 8.4 L Albumin 3.4 PG Care Time/CCT Total # of Minutes Spent Total Time Spent with Patient: Total time spent is greater than 50% in coordination of care (as documented) at patient's floor/unit and/or counseling patient: Coding Level of Care Code 17446 Subseq Hosp Care Lvl 3 Diagnoses Acute kidney injury N17.9 Chronic kidney disease, stage III (moderate) N18.30 Metabolic acidosis E87.2
[2022-04-21] MEDS: SODIUM BICARBONATE 650 MG TAB PO SCH ×2 (10:25→20:24)
--- NOTE | 2022-04-21 11:19 | Cardiology Progress Note ---
Date of Service April 21, 2022 Assessment & Plan (1) Discoloration of skin of toe: Plan: 2. Coronary artery disease --STEMI 02/2022, PCI of circumflex 3. HFrEF/Ischemic cardiomyopathy--EF40-45%, Inferolateral wall motion abnormality 4. Moderate MR 5. Vtach status post ICD 6. Acute on chronic renal insufficiency 7. Anemia 8. Hyponatremia 9. 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 Grossly positive bubble study most consistent with PFO WT up, new JVD, mild orthopnea today. Recorded I/O up 4L over admit Renal function improved -- Would give 40mg PO lasix today. Continue daily weights. PRN lasix for weight >100 lbs at personal care Continue clopidogrel, Eliquis for at least 3 months Continue Toprol XL and spironolactone 12.5 mg daily Continue amiodarone. Possibly discontinue amiodarone as an outpatient Continue statin From a cardiovascular standpoint OK with discharge back to personal care with close CHF clinic f/up. Repeat arterial duplex in 1 month Admission and Anticipated Discharge Date Admission Date: April 19, 2022 Subjective Overall feeling well but does report some episodic shortness of breath, more so when lying flat. No chest pain. Telemetry reviewed -- no events +1800 yesterday, up almost 4L since admission. WT up to 103 today Review of Systems Review of Systems: All systems reviewed & are unremarkable except as noted in HPI & below Physical Exam Physical Exam: General: No acute distress HEENT: Sclerae anicteric. Neck: JVP 9-10 Lungs: Clear to auscultation bilaterally without rales, rhonchi or wheezes. Cardiac: Regular rate and rhythm. S1-S2 normal. 2 out of 6 holosystolic murmur at the apex. ICD in place, Incision well-healed Abdomen: Soft Diffuse mild tenderness Extremities/vascular: --No edema -- Distal extremities warm. No ulceration.Post resection of second toe --Right femoral pulse 2+, normal capillary refill. 2+ DP/PT on the left, 1+ PT, diminished DP on the right Neurologic: Nonfocal Psychiatric: Affect appropriate. Alert and oriented. Results & Data ([facility]) Vital Signs (Past 12 Hours) Vital Signs Temp Pulse Resp BP Pulse Ox O2 Del Method 04/21/22 03:00 97.7 F 68 18 121/69 94 Room Air PG Care Time/CCT Total # of Minutes Spent Total Time Spent with Patient: Total time spent is greater than 50% in coordination of care (as documented) at patient's floor/unit and/or counseling patient: Coding Level of Care Code 98462 Subseq Hosp Care Lvl 3 Diagnoses Discoloration of skin of toe L81.9
[2022-04-21] MEDS: FUROSEMIDE 20 MG TAB PO SCH (12:44)
[2022-04-21] MEDS: HYDROCORTISONE SOD 10 MG in SYRINGE 0 ML IV SCH ×2 (13:30→20:25)
[2022-04-21] MEDS: ROTIGOTINE TD SCH (20:22)
[2022-04-21] MEDS: ATORVASTATIN 40 MG TAB PO SCH (20:24)
[2022-04-21] MEDS: traMADol HCL 50 MG TABLET PO PRN (23:06)
[2022-04-22] MEDS: LEVOTHYROXINE SODIUM 100 MCG TABLET PO SCH (05:55)
[2022-04-22] MEDS: CLOPIDOGREL BISULFATE 75 MG TAB PO SCH (07:56)
[2022-04-22] MEDS: METOPROLOL SUCC 25MG EXT REL TAB PO SCH (07:56)
[2022-04-22] MEDS: predniSONE 5 MG TAB PO SCH (07:56)
[2022-04-22] MEDS: THIAMINE HCL 100 MG TAB PO SCH (07:56)
[2022-04-22] MEDS: SPIRONOLACTONE 12.5 MG TAB PO SCH (07:56)
[2022-04-22] MEDS: APIXABAN 2.5 MG TAB PO SCH (07:56)
[2022-04-22] MEDS: AMIODARONE 200 MG TAB PO SCH (07:56)
[2022-04-22] MEDS: PANTOprazole 40 MG TAB PO SCH (07:57)
[2022-04-22] MEDS: FUROSEMIDE 20 MG TAB PO SCH (07:57)
[2022-04-22] MEDS: FAMOTIDINE 20 MG TAB PO SCH (07:57)
[2022-04-22] MEDS: SUCRALFATE 1 GM/10 ML UDC PO SCH ×2 (07:57→12:55)
[2022-04-22 08:17] LABS: Partial Thromboplastin Ratio 1.3; Partial Thromboplastin Time 36.9 Seconds (21.0-31.0)
[2022-04-22 08:40] LABS: BUN Creatinine Ratio 20.8 (10-20); Calcium 8.4 mg/dl (8.5-10.1); Creatinine Clr Calc Pharmacy 18.5 ml/min; Est GFR (African American) 35.4 ml/min; Est GFR (Non-African American) 30.6 ml/min; Magnesium 1.8 mg/dl (1.7-2.4); Potassium 4.2 mmol/L (3.5-5.1)
--- NOTE | 2022-04-22 08:42 | Nephrology Progress Note ---
Date of Service April 22, 2022 Assessment & Plan (1) Acute kidney injury: Plan: * Resolved. Likely related to recent hospitalization for ASCVD (2) Chronic kidney disease, stage III (moderate): Plan: * CKD stage G3b/A3 (moderate impairment). 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 Baseline Cr has been 1.4 w/ EGFR 35 cc/min. Urine microscopy has been acellular. UPCR 0.3 (3) Metabolic acidosis: Plan: * Continue NaHCO3 650 mg po daily (4) Hyponatremia: Plan: * h/o mild hyponatremia w/ serum Na 130 - 135 mmol/L * Serum Na is trending up w/ NaHCO3 administration Admission and Anticipated Discharge Date Admission Date: April 19, 2022 Subjective Ms. Brannon was evaluated in her hospital room this morning. She slept poorly last night and is anxious to return home. She reports that the cyanosis involving her R foot has improved. Review of Systems Constitutional: no fever Eyes: no worsening vision Ear, Nose, Mouth, Throat: no problem reported Respiratory: no problem reported Cardiovascular: no chest pain Gastrointestinal: no abdominal pain, no vomiting and no diarrhea/loose stools Genitourinary: no dysuria Physical Exam Constitutional: not in distress Eyes: PERRL ENMT: external ear and nose normal, oropharynx normal Neck: trachea midline, no thyromegaly Respiratory: normal respiratory effort, lungs clear to auscultation Cardiovascular: Rate/Rhythm: regular rate and regular rhythm Gastrointestinal (Abdomen): normal bowel sounds, soft, nontender, no hepatosplenomegaly Results & Data ([facility]) Vital Signs (Past 12 Hours) Vital Signs Temp Pulse Resp BP Pulse Ox O2 Del Method 04/22/22 03:15 36.6 C 70 20 131/88 100 Room Air 04/21/22 22:19 36.6 C 74 22 135/87 99 Room Air Laboratory Results Laboratory Tests 04/21/22 04/22/22 05:45 07:42 Sodium 129 L Potassium 4.2 Chloride 98 Carbon Dioxide 20 L Anion Gap 11 BUN 33 H Creatinine 1.59 H Est GFR (Non-Af Amer) 30.6 Glucose 89 Calcium 8.4 L Magnesium 1.8 Albumin 3.4 PG Care Time/CCT Total # of Minutes Spent Total Time Spent with Patient: Total time spent is greater than 50% in coordination of care (as documented) at patient's floor/unit and/or counseling patient: Coding Level of Care Code 69687 Subseq Hosp Care Lvl 3 Diagnoses Acute kidney injury N17.9 Chronic kidney disease, stage III (moderate) N18.30 Metabolic acidosis E87.2 Hyponatremia E87.1
--- NOTE | 2022-04-22 10:30 | Cardiology Progress Note ---
Date of Service April 22, 2022 Assessment & Plan (1) Discoloration of skin of toe: Plan: 2. Coronary artery disease --STEMI 02/2022, PCI of circumflex 3. HFrEF/Ischemic cardiomyopathy--EF40-45%, Inferolateral wall motion abnormality 4. Moderate MR 5. Vtach status post ICD 6. Acute on chronic renal insufficiency 7. Anemia 8. Hyponatremia 9. 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 Grossly positive bubble study most consistent with PFO Stable from a cardiovascular standpoint for discharge -- Received additional 20mg lasix today. On discharge would return to PRN lasix 40mg for new symptoms or weight gain > 2lbs/day at personal care. Follow-up with CHF clinic next week. Continue clopidogrel, Eliquis for at least 3 months Continue Toprol XL and spironolactone 12.5 mg daily Continue amiodarone. Possibly discontinue amiodarone as an outpatient Continue statin Repeat arterial duplex in 1 month Admission and Anticipated Discharge Date Admission Date: April 19, 2022 Subjective Reports anxiety overnight and symptoms consistent with her prior restless leg symptoms. Occasional episodes of dyspnea but no shortness of breath at rest or lying flat. No chest pain. Denies pain in feet bilaterally. Review of Systems Review of Systems: All systems reviewed & are unremarkable except as noted in HPI & below Physical Exam Physical Exam: General: No acute distress HEENT: Sclerae anicteric. Neck: No clear JVD Lungs: Clear to auscultation bilaterally without rales, rhonchi or wheezes. Cardiac: Regular rate and rhythm. S1-S2 normal. 2 out of 6 holosystolic murmur at the apex. ICD in place, Incision well-healed Abdomen: Soft Diffuse mild tenderness Extremities/vascular: --No edema -- Distal extremities warm. No ulceration.Post resection of second toe --Right femoral pulse 2+, normal capillary refill. 2+ DP/PT on the left, 1+ PT, diminished DP on the right Neurologic: Nonfocal Psychiatric: Affect appropriate. Alert and oriented. Results & Data ([facility]) Vital Signs (Past 12 Hours) Vital Signs Temp Pulse Resp BP BP Pulse Ox O2 Del Method 04/22/22 08:00 97.7 F 69 18 128/80 98 Room Air 04/22/22 03:15 97.9 F 70 20 131/88 100 Room Air PG Care Time/CCT Total # of Minutes Spent Total Time Spent with Patient: Total time spent is greater than 50% in coordination of care (as documented) at patient's floor/unit and/or counseling patient: Coding Level of Care Code 42549 Subseq Hosp Care Lvl 3 Diagnoses Discoloration of skin of toe L81.9
--- NOTE | 2022-04-22 12:46 | Discharge Summary ---
Date of Service April 22, 2022 Admission HPI Per Admitting Provider Alanna Brannon is a 81-year-old female with history of coronary artery disease status post NV 02/25/2023 while in [place]. She had PCI of the circumflex with stent placement. Post NV ventricular arrhythmia status post cardioversion with subsequent placement of AICD. Ischemic cardiomyopathy with last recorded EF of 35%. Patient follows with cardiology as well as heart failure clinic. She noted dusky discoloration of the tip of the right great toe on 04/15/2022 associated with some mild tenderness. She was seen in heart failure clinic as well as vascular medicine clinic on 04/16/2022. Concerns for possible embolic process. She had an in office arterial duplex which showed focal, mobile thrombus of the right external iliac artery thought to be the culprit for the embolism to her toe. The case was discussed with Dr. Bose. Decision not to proceed with full dose anticoagulation at that time given patient's age, anemia and frailty. She was continued on dual antiplatelet therapy with aspirin and Brilinta. She was instructed to return to care should her symptoms worsen. Patient noted yesterday worsening of the dusky discoloration, now involving the tips of all toes on the right and left as well as a portion of the dorsal surface of the feet. Additionally, there was some question of slurred speech over the last 2 days. Daughter reports the patient was speaking as if her dentures were not fitting properly. The speech seemed slightly garbled but not every word and would occur intermittently. No complaint of fever, chills, headache, focal deficit. No abdominal pain, vomiting. Patient had some nausea with dry heaving this morning. She has baseline intermittent shortness of breath and "twinges of chest pain" which she is not concerned about at this time. She denies edema, orthopnea or weight gain. She continues on a low-sodium diet. Is compliant with medications In the ER patient is afebrile, hemodynamically stable. ER course: Normal saline, tramadol, hydroxyzine, Brilinta, Lipitor Principal Diagnosis Possible common femoral artery thrombus/emboli Suspected hypoperfusion from Lasix causing blue discoloration of toe Discharge Exam Constitutional WD/WN, vitals as above Respiratory normal respiratory effort, lungs clear to auscultation Cardiovascular RRR, no murmur, no edema Extremities: + abnormal capillary refill (increased refill time in toes b/l with R/L blueish tinge) Gastrointestinal (Abdomen) normal bowel sounds, soft, nontender, no hepatosplenomegaly Psychiatric A+Ox3, euthymic affect Discharge Data Allergies Allergy/AdvReac Type Severity Reaction Status Date / Time gabapentin Allergy Unknown Verified 04/18/22 19:05 Consultations 04/18/22 21:57 ED Decision to Admit Stat 04/19/22 00:19 Consult Cardiology Routine 04/19/22 18:25 Consult Gastroenterology Routine 04/20/22 07:55 Consult Nephrology Routine Ordered Studies 04/18/22 16:39 CT head/brain wo con Stat IMPRESSION: No acute intracranial abnormality. US doppler leg [US arterial duplex LE RT] Urgent IMPRESSION: 1. Moderate atherosclerotic plaque within the right lower extremity. 2. No elevated velocities to suggest a hemodynamically significant stenosis by sonography. 3. Predominantly biphasic flow within the right lower extremity. Monophasic flow within portions of the right calf vessels, as above. Hospital Course (1) Embolic disease of toe: alanna Brannon is a 81 year old female who was admitted to [facility] from April 18 - 2021 due to blue discoloration of her toes. Suspected related to plaque vs embolic event from prior cardiac catheterization and discussed with Dr Bose and as you were placed on a heparin drip inpatient, it is not clear if this was truly embolic, however decision to place her on Eliquis 2.5mg PO BID was decided. For that reason and to prevent risk of bleeding, BRILLINTA was STOPPED, and she was transitioned to PLAVIX 75mg daily. ASPIRIN has been DISCONTINUED. She will need repeat arterial studies with Dr Bose in the next month. Suspect Lasix caused her temporary discoloration of your toes on admission due to temporary reduced perfusion. On discharge would return to PRN lasix 40mg for new symptoms or weight gain > 2lbs/day at personal care.No routine Lasix will be given. She will resume spironolactone at 12.5mg daily and should continue the metoprolol. Entresto remains on hold due to hypotension on this when restarted. For her abdominal discomfort, this was felt to be multifactorial. She has a hiatal hernia which was not amendable to surgical repair given cardiac disease/high risk, as well as possible adrenal insufficiency that she should have stress dose steroids (double dose) when acutely ill, and she was treated with IV hydrocortisone during her inpatient stay but will resume her usual 5mg dose on disharge. Sodium bicarbonate was started by nephrology due to her chronic kidney disease and metabolic acidosis. Recommend following up with your primary care provider for ongoing management of this. Gastroenterology were also consulted and they recommend you continue the protonix twice daily, and have added Pepcid twice daily and Carafate four times daily with meals to help with any reflux issues. Further imaging such as endosc opy was held off, and if continued issues you may follow up with Dr Jama as an outpatient. (2) Adrenal insufficiency: (3) Ebocl-cy-elsgwll kidney injury: (4) Chronic systolic CHF (congestive heart failure): (5) CAD (coronary artery disease): (6) Hypertension: (7) Hypothyroidism: (8) Discoloration of skin of toe: (9) Elevated transaminase level: (10) S/P ICD (internal cardiac defibrillator) procedure: (11) S/P coronary artery stent placement: (12) Stage 3b chronic kidney disease: (13) Hypomagnesemia: (14) Hypokalemia: (15) Hyponatremia: (16) Rheumatoid arthritis: (17) Metabolic acidosis: (18) Hiatal hernia: Total Time Total Time Spent Total Time Spent (In Minutes): 40 Discharge Plan Discharge Items Patient Disposition: Transfer Care Home Fac Reason For Visit: BLUE TOES Discharge Diagnosis: Possible common femoral artery thrombus/emboli Suspected hypoperfusion from Lasix causing blue discoloration of toe Activity: Resume your previous activity Non-emergency contact: Primary Care Provider Call non-emergency contact if: you have any medication questions and your symptoms worsen Follow-up/Referrals: Maddison Metzger MD [Primary Care Provider] - 05/03/22 11:00 am (with Floresita Blandon) Shara Nguyen PA-C [Physician Chief Construction Inspector] - 04/29/22 10:30 am Diet: Heart Healthy, Low Fat and Low Sodium (2gm) Addtl Attending Provider Instructions: You have been hospitalized for blue discoloration of your toes. This was felt potentially related to plaque vs embolic event from prior cardiac catheterization and discussed with Dr Bose and as you were placed on a heparin drip inpatient, it is not clear if this was truly embolic, however decision to p lace you on Eliquis 2.5mg by mouth twice daily was decided. For that reason and to prevent risk of bleeding, your BRILLINTA was STOPPED, and you were transition to PLAVIX 75mg daily. Your ASPIRIN has been DISCONTINUED. You will continue Eliquis 2.5mg by mouth TWICE daily given renal function. You will need repeat arterial studies with Dr Bose in the next month. You have had your spironolactone resumed at 12.5mg daily and should continue the metoprolol. Your Lasix and Entresto remain on hold. Continue low salt diet and monitoring of weight daily. If weight > 2lbs/day, can take Lasix 40 mg PO daily as needed per Dr Bose. You should also follow up with the CHF clinic - suspect lasix caused your temporary discoloration of your toes on admission due to temporary reduced perfusion. Your previously elevated liver enzymes were normalized on repeat, and as discussed previously, this could have been from prior admission for SHOCK. For your abdominal discomfort, this was felt to be multifactorial. You have a hiatal hernia which was not amendable to surgical repair given cardiac disease/high risk, as well as possible adrenal insufficiency that you should have stress dose steroids (double dose) when acutely ill, and you were given IV steroids with hydrocortisone and resume your usual 5mg dose. Sodium bicarbonate was started by nephrology due to your chronic kidney disease and metabolic acidosis. Recommend following up with your primary care provider for ongoing management of this. Gastroenterology were also consulted and they recommend you continue the pr otonix twice daily, and have added Pepcid twice daily and Carafate four times daily with meals to help with any reflux issues. Further imaging was held off, and if continued issues you may follow up with Dr Jama as an outpatient. Please follow up with primary care in the next 7-10 days to monitor your progress after discharge. Please return to the ER with any recurrence of chest pain, worsening shortness of breath, inability to keep up with oral intake for for any other symptoms concerning for you. It has been a pleasure being a part of the medical team providing for you while you have been in the hospital. Take care! Pending Studies at Discharge: No Stand-Alone Forms: My [facility] Skilled Items Patient informed of condition?: Yes DNR: Yes Discharge Level of Care: Skilled Communicable Disease: No Discharge Prognosis: Stable Lines: None Urinary Catheter: No Medications and DC Order Prescriptions: New Eliquis 2.5 mg tablet 2.5 mg PO BID Qty: 60 0RF clopidogrel 75 mg Tablet 75 mg PO QAM Qty: 30 0RF famotidine 20 mg Tablet 20 mg PO BID Qty: 60 0RF sodium bicarbonate 650 mg Tablet 650 mg PO DAILY Qty: 30 0RF spironolactone 25 mg Tablet 12.5 mg PO DAILY Qty: 30 0RF pantoprazole 40 mg tablet,delayed release (DR/EC) 40 mg PO BID Qty: 60 0RF Continued rotigotine 1 mg/24 hour patch 24 hour 2 mg TRANSDERMAL HS Qty: 90 3RF Rx Instructions: Remove daily tramadol 50 mg tablet 50 mg PO Q6H PRN (Reason: Pain) Qty: 240 0RF atorvastatin 80 mg tablet 80 mg PO DAILY Qty: 90 3RF Rx Instructions: new, did not start yet thiamine HCl (vitamin B1) 100 mg tablet 100 mg PO DAILY hydroxyzine HCl 25 mg tablet 25 mg PO HS PRN (Reason: Anxiety) metoprolol succinate 25 mg tablet extended release 24 hr 25 mg PO DAILY furosemide 40 mg tablet 40 mg PO DAILY PRN (Reason: weight gain) multivitamin Tablet 1 tab PO DAILY acetaminophen [Tylenol] 325 mg Tablet 650 mg PO Q4 PRN (Reason: Pain) amiodarone 200 mg tablet 200 mg PO DAILY levothyroxine 100 mcg tablet 100 mcg PO DAILY ferrous sulfate [iron] 325 mg (65 mg iron) Tablet 325 mg PO DAILY docusate sodium 100 mg Capsule 100 mg PO BID prednisone 5 mg Tablet 5 mg PO DAILY senna-docusate sodium Tablet 1 tab PO BID PRN (Reason: Constipation) Discontinued omeprazole 20 mg capsule,delayed release(DR/EC) 20 mg PO DAILY pantoprazole 40 mg Tablet,Delayed Release (Dr/Ec) 40 mg PO BID Rx Instructions: Take before a meal aspirin 81 mg tablet,chewable 81 mg PO DAILY Brilinta 90 mg tablet 90 mg PO Q12 No Action sucralfate 100 mg/mL suspension 1 g PO ACHS Qty: 120 5RF Discharge Orders: Discharge Order (Routine); Ordered 04/22/22 Ordered By: Burke Oswald Admission Data Admit Date/Time: 04/19/22 15:16 Attending Provider: Burke Oswald Admit Provider: Karina Rodriguez Primary Care Provider: Maddison Metzger Other Providers: Karina Rodriguez ; Elieser Posey ; Shawn Jama ; Shayne Lei Other Interventions: Discharge Summary Assessment (RN) Last Done: 04/22/22 12:52 Coding Level of Care Code D/C DAY MANAGEMENT >30 MINS Diagnoses Embolic disease of toe I74.3 Adrenal insufficiency E27.40 [id number] kidney injury N17.9; N18.9 Chronic systolic CHF (congestive heart failure) I50.22 CAD (coronary artery disease) I25.10 Hypertension I10 Hypertension type: primary hypertension Hypothyroidism E03.9 Hypothyroidism type: acquired Discoloration of skin of toe L81.9 Elevated transaminase level R74.01 S/P ICD (internal cardiac defibrillator) procedure Z95.810 S/P coronary artery stent placement Z95.5 Stage 3b chronic kidney disease N18.32 Hypomagnesemia E83.42 Hypokalemia E87.6 Hyponatremia E87.1 Rheumatoid arthritis M06.041; M06.042 Laterality: bilateral Rheumatoid arthritis location: hand Rheumatoid factor presence: without rheumatoid factor Metabolic acidosis E87.2 Hiatal hernia K44.9
[2022-04-23] MEDS ORDERED: SODIUM BICARBONATE 650 MG TAB PO SCH (09:00)
== END 2022-04-22 14:31 | disposition home or self-care (01) | DRG 300 ==
LOC: 3E 14:58 → ED 14:58 → SUATTDRO 22:39 → 3E 23:42 → 2S 04-19 08:19 → SUATTDRO 04-19 15:16

== ENCOUNTER 2022-04-27 11:04 | Inpatient (IN) ==
[2022-04-27 12:51] LABS: Basophils # (auto) 0.01 K/uL (0-0.2); Basophils % (auto) 0.1 %; Eosinophils # (auto) 0.03 K/uL (0-0.50); Eosinophils % (auto) 0.4 %; Hematocrit (blood only) 34.5 % (34.1-44.9); Immature Granulocytes # (auto) 0.08 K/uL (0.00-0.02); Immature Granulocytes % (auto) 1.1 %; Lymphocytes # (auto) 1.31 K/uL (1.2-3.4); Lymphocytes % (auto) 17.2 %; Mean Corpuscular Hemoglobin 31.4 pg (25.0-34.0); Mean Corpuscular Hgb Conc 31.9 g/dL (32.0-36.0); Mean Corpuscular Volume 98.6 fL (80.0-100.0); Mean Platelet Volume 9.3 fL (9.4-12.3); Monocytes # (auto) 0.66 K/uL (0.24-0.82); Monocytes % (auto) 8.7 %; Neutrophils # (auto) 5.52 K/uL (1.4-6.5); Neutrophils % (auto) 72.5 %; Nucleated RBC # (auto) 0.05 K/uL (0-0); Nucleated RBC % (auto) 0.7 %; Platelet Count 216 K/uL (130-400); RDW Standard Deviation 67.2 fL (36.4-46.3); White Blood Count 7.61 K/ul (4.8-10.8)
[2022-04-27 13:03] LABS: INR 2.4 (0.9-1.1); Partial Thromboplastin Ratio 1.6; Partial Thromboplastin Time 44.7 Seconds (21.0-31.0); Prothrombin Time 24.5 Seconds (9.0-12.0)
--- NOTE | 2022-04-27 13:18 | XRay Report ---
XR chest 1V portable HISTORY: 81 years-old Female cp sob acute shortness of breath with chest pain COMPARISON: Chest radiograph 03/19/2022 TECHNIQUE: Semierect AP view of the chest FINDINGS: The patient is mildly rotated towards the left. Left subclavian pacer/AICD. Atherosclerosis of the ao rta. No pneumothorax. Pulmonary vascular congestion with interstitial coarsening. Small pleural effus ions with mild bibasilar consolidation. Bones appear grossly intact. IMPRESSION: 1. Cardiomegaly with pulmonary edema. 2. Small pleural effusions with mild bibasilar consolidation. ACT 112: Negative or not required by law. The above report was generated using voice recognition software. It may contain grammatical, syntax o r spelling errors. Electronically signed by: Ted eWsley M.D. 04/27/2022 1:16 PM
[2022-04-27 13:26] LABS: Troponin I High Sensitivity 49.6 pg/ml (0-14)
[2022-04-27 13:44] LABS: Alanine Aminotransferase 121 U/L (7-52); Albumin Globulin Ratio 1.2 (0.9-2); Albumin Level 3.7 gm/dl (3.4-5.0); Alkaline Phosphatase 240 U/L (34-104); Anion Gap 19 (3-11); Aspartate Aminotransferase 178 U/L (13-39); BUN Creatinine Ratio 23.3 (10-20); Blood Urea Nitrogen 67 mg/dl (6-23); Calcium 8.8 mg/dl (8.5-10.1); Carbon Dioxide 16 mmol/L (21-32); Chloride 94 mmol/L (98-107); Est GFR (African American) 17.3 ml/min; Glucose 65 mg/dl (70-99(Fasting)); Magnesium 2.4 mg/dl (1.7-2.4); Potassium 4.7 mmol/L (3.5-5.1); Sodium 129 mmol/L (136-145); Total Protein 6.7 gm/dl (6.0-8.3)
[2022-04-27] MEDS ORDERED: DEXTROSE 50% 50 ML SYRINGE IV ONE (13:59)
--- NOTE | 2022-04-27 14:23 | History & Physical Report ---
Date of Service April 27, 2022 Assessment & Plan (1) Elevated transaminase level: Plan: -Admit to -Patient is currently afebrile, hemodynamically stable, and stable on room air -Patient has a previous history of elevated LFTs which were thought to be caused from shock due to adrenal insufficiency, but she was also evaluated at [facility] for possible cholecystitis but was deemed not a surgical candidate, her LFTs came back to baseline prior to her last admission -Will obtain acute hepatitis labs now and continue to trend LFTs; platelets are currently WNL -PT/INR/APTT all elevated, no signs of active bleeding, liekly elevated due to current elevation in liver function tests -Will continue to monitor for now (2) Hyponatremia: Plan: -Noted to be chronic, currently at 129 (3) Metabolic acidosis: Plan: -AG was noted to be 19 with a bicarb of 16 -Adding on lactate to help differentiae possible causes -Had a similar issue last admission and was started on sodium bicarbonate by Nephrology prior to discharge -Continue GRINDER OPERATOR SURFACE TOOL sodium Bicarb (4) Acute kidney injury superimposed on CKD: Plan: -Cr today noted to be 2.87, was at 1.59 on 04/22 and baseline appears to be approximately 1.3 -Likely multifactorial including dehydration and possibly cardiorenal syndrome -Will consult Nephrology to assist with workup and treatment -Continue to trend renal function (5) Adrenal insufficiency: Plan: -Noted to have a history of adrenal insufficiency with previous episodes of hypotension and shock -Normally on 5 mg PO prednisone daily -Patient noted to be hypoglycemic in the ED and no history of DM/not on antihyperglycemic agents -Will start stress dose steroids now to help prevent adrenal crisis and further episodes of hypotension (6) Arterial insufficiency of lower extremity: Plan: -Was recently placed on eliquis on previous admission as it was unsure if her episode of "blueish toes" was due to an embolic event or plaque -Will continue the eliquis for now and monitor (7) Hyperlipidemia: Plan: -Hold GRINDER OPERATOR SURFACE TOOL statin for now with elevated LFTs, restart if LFTs come back to baseline (8) S/P ICD (internal cardiac defibrillator) procedure: Plan: -No current chest pain, ACS symptoms, or ECG changes -Initial high sensitivity troponin elevated at 49 -The elevated troponin could be related to her current MURRAY on CKD -Will continue to trend troponin for now and monitor on tele -If any additional concerning symptoms or elevated troponin would consult cardiology -Continue GRINDER OPERATOR SURFACE TOOL Plavix (9) Chronic systolic CHF (congestive heart failure): Plan: -Last EF was noted to be 40-45% on Echo from 04/19/22 -Her Entresto was held from prior admission due to hypotension but she was continued on her GRINDER OPERATOR SURFACE TOOL lasix and (10) CAD (coronary artery disease): (11) Chronic hyponatremia: (12) Restless leg syndrome: (13) Acute adrenal insufficiency: (14) Hypertension: (15) Hypothyroidism: (16) Elevated troponin: (17) QT prolongation: History of Present Illness Chief Complaint: 81 year old female with a PMH significant for 81-year-old female with history of coronary artery disease status post AZ 02/25/2022 while in [place]. She had PCI of the circumflex with stent placement. Post [place] ventricular arrhythmia status post cardioversion with subsequent placement of AICD. Ischemic cardiomyopathy with last recorded EF of 40-45% as of 04/19/22, adrenal insufficiency, transaminitis, CKD stage 3, restless leg syndrome, chronic hyponatremia, hypothyroidism, OA who presented to the [facility] ED from physial therapy on 04/27/22 with a chief complaint of hypotension. Per the ED staff, the physical therapy staff was having trouble getting a blood pressure or pulse on the patient and she was complaining of feeling weak. EMS was called and the patient was found to be normotensive in the ED upon arrival. She was noted to be afebrile and stable on room air. Labs were remarkable for elevated INR of 2.4, APTT of 44.7, and PT of 24.5, sodium of 129 with a glucose of 65, anion gap of 19 with a bicarb of 16, creatinine of 2.87 (baseline appears to be around 1.3), AST of 178, ALT of 121, Alk phos of 240, and high sensitivity troponin of 49.6. Chest xray showed Cardiomegaly with pulmonary edema and Small pleural effusions with mild bibasilar consolidation. In the ED the patient was given 50 mL of 50% dextrose for hypoglycemia. Of note, the patient was recently admitted to [facility] from 04/18-04/22 for embolic disease of the BL lower extremities (bluish discoloration of the toes on the BL feet). It was initially unclear if her presentation was due to plaque or possible embolic event from her recent cardiac catheterization. She was initially started on a heparin drip and then was transitioned to Eliquis. Brilinta and aspirin were discontinued due to the high risk for bleeding and she was transitioned to plavix. She was evaluated by vascular surgery who believed that her temporary discoloration of the toes on admission was due to hypoperfusion from her home lasix; she will need to follow-up with vascular surg candy for repeat imaging in a month. While admitted she experienced abdominal pain which was thought to be caused by her hiatal hernia and possible adrenal insufficiency, she was treated with IV hydrocortisone and then resumed her GRINDER OPERATOR SURFACE TOOL PO prednisone on discharge. During her admission she was also noted to have a metabolic acidosis and was evaluated by Nephrology who started her on sodium bicarbonate.. The previous discharge summary notes that the patient experienced elevated LFTs which returned to baseline during admission and was thought to be caused from shock during a previous admission. Her Entresto was held on discharge due to hypotension. The gastroenterology note from her previous admission explains that she has both a hiatal hernia and intrathoracic stomach, as-well-as findings concerning for possible cholecystitis. She had been evaluated by Surgery at [facility] previously for these issues and was not deemed a surgical candidate due to her high cardiac risk. Primary Care Provider: Maddison Metzger MD Allergies Allergy/AdvReac Type Severity Reaction Status Date / Time gabapentin Allergy Unknown Verified 04/18/22 19:05 Home Medications Medication Instructions Recorded Confirmed Type acetaminophen 325 mg tablet 650 mg PO Q4 PRN Pain 03/19/22 04/23/22 History (Tylenol) amiodarone 200 mg tablet 200 mg PO DAILY 03/19/22 04/23/22 History docusate sodium 100 mg capsule 100 mg PO BID 03/19/22 04/23/22 History ferrous sulfate 325 mg (65 mg 325 mg PO DAILY 03/19/22 04/23/22 History iron) tablet (iron) levothyroxine 100 mcg tablet 100 mcg PO DAILY 03/19/22 04/23/22 History multivitamin 1 tab PO DAILY 03/19/22 04/23/22 History prednisone 5 mg tablet 5 mg PO DAILY 03/19/22 04/23/22 History hydroxyzine HCl 25 mg tablet 25 mg PO HS PRN Anxiety 04/08/22 04/23/22 History metoprolol succinate 25 mg 25 mg PO DAILY 04/08/22 04/23/22 History tablet,extended release 24 hr thiamine HCl (vitamin B1) 100 mg 100 mg PO DAILY 04/08/22 04/23/22 History tablet furosemide 40 mg tablet 40 mg PO DAILY PRN weight gain 04/14/22 04/23/22 History senna-docusate sodium tablet 1 tab PO BID PRN Constipation 04/14/22 04/23/22 History tramadol 50 mg tablet 50 mg PO Q6H PRN Pain #240 tabs 04/14/22 04/23/22 Rx atorvastatin 80 mg tablet 80 mg PO DAILY #90 tabs 04/16/22 04/23/22 Rx apixaban 2.5 mg tablet (Eliquis) 2.5 mg PO BID #60 tabs 04/19/22 04/23/22 Rx clopidogrel 75 mg tablet 75 mg PO QAM #30 tabs 04/22/22 04/23/22 Rx famotidine 20 mg tablet 20 mg PO BID #60 tabs 04/22/22 04/23/22 Rx pantoprazole 40 mg tablet,delayed 40 mg PO BID #60 tabs 04/22/22 04/23/22 Rx release sodium bicarbonate 650 mg tablet 650 mg PO DAILY #30 tabs 04/22/22 04/23/22 Rx spironolactone 25 mg tablet 12.5 mg PO DAILY #30 tabs 04/22/22 04/23/22 Rx sucralfate 100 mg/mL oral 1 g (10 mL) PO ACHS #120 mL 04/23/22 04/23/22 Rx suspension rotigotine 2 mg/24 hour 2 mg transdermal HS 04/27/22 04/27/22 History transdermal 24 hour patch (Neupro) Past Med/Surg History Medical History Acid reflux Acute encephalopathy Acute hyponatremia Acute AZ Acute UTI CAD (coronary artery disease) [place] in [place] in 02/2022. 1 stent placed (believe LCx, but not sure). 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 Dehydration, mild DVT prophylaxis Dysuria Elevated troponin Hiatal hernia History of Hodgkin's lymphoma S/P RADIATION/CHEMO (2000) History of pelvic fracture Hyperlipidemia Hypertension Hypothyroidism Ischemic cardiomyopathy Mixed stress and urge urinary incontinence Nausea & vomiting Restless leg syndrome Rheumatoid arthritis ON PLAQUENIL AND CHRONIC PREDNISONE 7.5MG DAILY Sciatica Scoliosis Stage 3b chronic kidney disease Ventricular tachycardia Surgical History H/O foot surgery 2ND RT TOE REMOVED History of bilateral cataract extraction RIGHT CATARACT EXTRACTION WITH IOL= 04/05/18= MAC SEDATION AT [facility] History of colonoscopy History of gynecologic surgery ANTERIOR AND POSTERIOR REPAIR - colporrhaphy (for pelvic relaxation) History of removal of cyst HEAD (BENIGN) History of tonsillectomy History of tooth extraction History of total knee replacement RT History of urologic surgery [place] [facility] [place] coronary artery stent placement S/P ICD (internal cardiac defibrillator) procedure S/P vaginal hysterectomy Family History Mother , age 80 Cardiac disorder Family history of lung cancer Brother Diabetes Family history of lung cancer Family history of diabetes mellitus Daughter Breast cancer Father , age 57 Cardiac disorder Grandmother Diabetes Aunt Ovarian cancer paternal aunt Grandmother (Paternal) Family history of diabetes mellitus Other Cancer Heart disease No family history of adverse response to anesthesia No family history of bleeding disorder Denies family history of Colon cancer Colorectal cancer Social History Smoking Status: Former smoker Tobacco Type: Cigarettes Cigarettes Per Day: QUIT + 30 YEARS AGO; Second Hand Exposure: No; Hx Alcohol Use: No Hx Substance Use: No Preferred Language: Colombian Communication Ability: Effective Visual Impairment: No Limitations Hearing Ability: Use of Hearing Aid Hospice Home Health Aide Required: No Beliefs That Will Affect Care: None marital status: / Current Living Situation: Personal Care Facility Current Living Situation Comment: [facility] 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 [employer] Feels Safe at Home: Yes Childhood Exposure to Second-Hand Smoke: Yes (parent smoked) Dental Care, Regularly: Yes Sunscreen Use: Yes (occasionally) Assistive Devices: Walker Results & Data Results & Data ([facility]) Vital Signs (Past 12 Hours) Vital Signs Temp Pulse Pulse Resp BP BP Pulse Ox 04/27/22 14:16 89 L 04/27/22 14:13 59 L 18 102/70 89 L 04/27/22 13:10 54 L 18 124/77 98 04/27/22 11:15 35.4 C L 50 L 20 112/77 98 O2 Del Method O2 Flow Rate 04/27/22 14:16 Nasal Cannula 0 04/27/22 14:13 Room Air 04/27/22 13:10 Room Air 04/27/22 11:15 Room Air Laboratory Results Abnormal lab results 04/27/22 04/27/22 04/27/22 Range/Units 12:18 12:18 12:18 RBC 3.50 L (3.93-5.22) M/uL Hgb 11.0 L (12.0-16.0) g/dl MCHC 31.9 L (32.0-36.0) g/dL RDW Std Deviation 67.2 H (36.4-46.3) fL RDW Coeff of Sachin 19.0 H (11.5-14.5) % MPV 9.3 L (9.4-12.3) fL Immature Gran # (Auto) 0.08 H (0.00-0.02) K/uL Absolute Nucleated RBC 0.05 H (0-0) K/uL PT 24.5 H (9.0-12.0) Seconds INR 2.4 H (0.9-1.1) APTT 44.7 H (21.0-31.0) Seconds Sodium 129 L (136-145) mmol/L Chloride 94 L (98-107) mmol/L Carbon Dioxide 16 L (21-32) mmol/L Anion Gap 19 H (3-11) BUN 67 H (6-23) mg/dl Creatinine 2.87 H (0.6-1.2) mg/dl BUN/Creatinine Ratio 23.3 H (10-20) Glucose 65 L (70-99(Fasting)) mg/dl AST 178 H (13-39) U/L ALT 121 H (7-52) U/L Alkaline Phosphatase 240 H (34-104) U/L Troponin I High Sens 49.6 H D (0-14) pg/ml ECG Additional Comments: Sinus bradycardia Possible Left atrial enlargement Left axis deviation Low voltage QRS Anterolateral infarct (cited on or before 06-MAR-2022) Prolonged QT Abnormal ECG When compared with ECG of 27-APR-2022 11:37, (unconfirmed) No significant change was found PG Care Time/CCT Total # of Minutes Spent Total Time Spent with Patient: Total time spent is greater than 50% in coordination of care (as documented) at patient's floor/unit and/or counseling patient: Coding Diagnoses Elevated transaminase level R74.01 Hyponatremia E87.1 Metabolic acidosis E87.2 Acute kidney injury superimposed on CKD N17.9; N18.9 Adrenal insufficiency E27.40 Arterial insufficiency of lower extremity I73.9 Hyperlipidemia E78.5 S/P ICD (internal cardiac defibrillator) procedure Z95.810 Chronic systolic CHF (congestive heart failure) I50.22 CAD (coronary artery disease) I25.10 Chronic hyponatremia E87.1 Restless leg syndrome G25.81 Acute adrenal insufficiency E27.40 Hypertension I10 Hypertension type: primary hypertension Hypothyroidism E03.9 Hypothyroidism type: acquired Elevated troponin R77.8 QT prolongation R94.31 (1) Hypothyroidism Hypothyroidism type: acquired Qualified Code(s): E03.9 - Hypothyroidism, unspecified (2) Hypertension Hypertension type: primary hypertension Qualified Code(s): I10 - Essential (primary) hypertension
--- NOTE | 2022-04-27 15:18 | CT Scan Report ---
ABDOMEN AND PELVIS CT WITHOUT CONTRAST CT DOSE: 245.98 mGy.cm HISTORY: Acute kidney injury. Transaminitis TECHNIQUE: Multiaxial CT images of the abdomen and pelvis were performed without contrast. A dose lo wering technique was utilized adhering to the principles of ALARA. COMPARISON STUDY: Abdomen and pelvis CT 03/19/2022. FINDINGS: Mild interlobular septal thickening at the lung bases likely representing mild pulmonary ed yuriy. There are small bilateral pleural effusions, right greater than left, unchanged. There is associ ated atelectasis within the lower lobes posteriorly. A pacemaker wire is noted. The heart remains enl arged. There is a large hiatus hernia containing the majority of the stomach. There is an old right i nferior pubic ramus fracture. Levoscoliosis of the lumbar spine. Mild to moderate body wall edema whi ch has progressed. The bladder is unremarkable. Prior hysterectomy. Stable 16 mm cystic focus along t he left vaginal cuff. Trace perihepatic ascites associated progressed. There is perihepatic/periporta l fat stranding/edema which is also slightly progressed. Layering sludge/stones within the gallbladde r remains unchanged. Right greater than left perinephric edema is also progressed. Borderline thicken ing within the ascending colon/hepatic flexure of the colon, unchanged. No definite hepatic or spleni c masses. The normal General glands. Markedly atrophic left kidney, unchanged. No right-sided hydrone phrosis. Mild peripancreatic edema and mild right mesenteric edema has slightly progressed. Suboptima l evaluation for bowel pathology due to the lack of intravenous and oral contrast. Colonic diverticul osis. No evidence for acute diverticulitis. Normal appendix. No evidence for bowel obstruction. Sever e calcified plaque within the bilateral common femoral arteries. No change in the mesenteric soft tis jacqueline nodule measuring 2.3 cm with central calcifications. Surgical clips noted within the right side t he abdomen. No change in the mild periaortic soft tissue thickening. IMPRESSION: 1. Progressive edema within the right side of the abdomen centered at the perihepatic/periportal loca tions. This nonspecific and could be due to a diffuse edematous state or underlying hepatic pathology . 2. Sludge and stone filled gallbladder with pericholecystic edema. This is likely due to the underlyi ng hepatic pathology. An acute cholecystitis is considered less likely given the lack of significant change but not entirely excluded. 3. Mild peripancreatic and mesenteric edema is likely due to the patient's diffuse edematous state. R ecommend correlation with pancreatic enzymes due to the less likely possibility of a developing acute pancreatitis. 4. Interval progression of the mild to moderate body wall edema and trace ascites. Mild pulmonary arminda ma and small bilateral pleural effusions again noted. 6. Thickening within the proximal colon is likely due to the diffuse edematous state. A low-grade col itis could also a similar appearance in the appropriate clinical setting. 7. Additional findings as described above. ACT 112: Negative or not required by law. Electronically signed by: Guillermo Tolbert M.D. 04/27/2022 3:17 PM
--- NOTE | 2022-04-27 16:37 | History & Physical Report ---
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 Troponin 49, likely elevated with demand/fluid overload. Updated echo pending Given obvious fluid overload but with 1 nonfunctioning kidney and creatinine elevated from baseline 1.41.7-2.87 nephrology consulted assistance with diuresis No signs of bleeding Patient with underlying chronic gallbladder edema, no significant change and difficult to assess on CT due to diffuse edema. Patient is a poor surgical candidate and has been refused for surgical intervention both at this institution at [facility] in the past, was recommended to have enzymes trended and treated medically and surgery to be avoided unless refractory/emergent CAD, history of PCI to circumflex EF 40-45% History of V. tach, s/p ICD placement Lasix 40 mg held at last admission Continue Plavix, Eliquis Continue metoprolol, spironolactone Continued on amiodarone history of VT with pacer. This was to be followed as outpatient potentially discontinued in the future Continue statin ARF CKD 3 History of retroperitoneal fibrosis and left kidney atrophy Baseline creatinine approximately 1.4, acutely elevated to 2.8 on admission. Nephro consulted as noted Started on bicarb 650 mg p.o. 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 daily Stress test for acute illness DVT PPx: Heparin Diet: Low salt, HH Dispo: Med Tele volume overload and cardiac eval CODE: DNR/DNI (2) Acute kidney injury: (3) Chronic hyponatremia: (4) Elevated transaminase level: (5) Hx of Hodgkin's disease: (6) Hyperlipidemia: (7) Hypertension: (8) Rheumatoid arthritis: (9) S/P coronary artery stent placement: (10) S/P ICD (internal cardiac defibrillator) procedure: (11) Stage 3b chronic kidney disease: History of Present Illness Primary Care Provider: Maddison Metzger MD Shruthi is a 81-year-old female with a past medical history of CAD with FL in [facility] [place] 02/2022 with LA to LCx by report, 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 Hemoglobin 11.0, up from prior baseline. Sodium chronically [id number], 129 on admission. Potassium normal. Creatinine is acutely elevated to 2.87 from baseline of approximately 1.4. Patient is clinically volume overloaded. Lactate pending. Patient is with new transaminitis to 178/121, total bilirubin is normal. Alk phos 240. High-sensitivity troponin 50. Patient reports that over the last week after charge from the hospital she has had progressive abdominal swelling/discomfort, weight gain, and progressive weakness. She has been having intermittent right upper quadrant and left upper quadrant abdominal discomfort and increasing orthopnea. She has been sleeping sitting up and due to worsened shortness of breath while laying flat. She reports she has been eating most meals well, occasionally has had some nausea with meals. Has been peeing normally. Denies dysuria. She had some rib pain, denies upper chest/neck/substernal/shoulder pain. Denies palpitations. Denies diaphoresis. She reports she has had some loose bowels. Endorses weight gain. No increased salt load. 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 No melton/white stools. No pain w/ greasy foods. Medical History: Reviewed Medications: Reviewed Surgical History: Reviewed Allergies: Reviewed Social History: Reviewed Code Status: DNR/DNI Allergies Allergy/AdvReac Type Severity Reaction Status Date / Time gabapentin Allergy Unknown Verified 04/18/22 19:05 Home Medications Medication Instructions Recorded Confirmed Type acetaminophen 325 mg tablet 650 mg PO Q4 PRN Pain 03/19/22 04/27/22 History (Tylenol) amiodarone 200 mg tablet 200 mg PO DAILY 03/19/22 04/27/22 History docusate sodium 100 mg capsule 100 mg PO BID 03/19/22 04/27/22 History ferrous sulfate 325 mg (65 mg 325 mg PO DAILY 03/19/22 04/27/22 History iron) tablet (iron) levothyroxine 100 mcg tablet 100 mcg PO DAILY 03/19/22 04/27/22 History multivitamin 1 tab PO DAILY 03/19/22 04/27/22 History prednisone 5 mg tablet 5 mg PO DAILY 03/19/22 04/27/22 History hydroxyzine HCl 25 mg tablet 25 mg PO HS PRN Anxiety 04/08/22 04/27/22 History metoprolol succinate 25 mg 25 mg PO DAILY 04/08/22 04/27/22 History tablet,extended release 24 hr thiamine HCl (vitamin B1) 100 mg 100 mg PO DAILY 04/08/22 04/27/22 History tablet furosemide 40 mg tablet 40 mg PO DAILY PRN weight gain 04/14/22 04/27/22 History senna-docusate sodium tablet 1 tab PO BID PRN Constipation 04/14/22 04/27/22 History tramadol 50 mg tablet 50 mg PO Q6H PRN Pain #240 tabs 04/14/22 04/27/22 Rx atorvastatin 80 mg tablet 80 mg PO DAILY #90 tabs 04/16/22 04/27/22 Rx apixaban 2.5 mg tablet (Eliquis) 2.5 mg PO BID #60 tabs 04/19/22 04/27/22 Rx clopidogrel 75 mg tablet 75 mg PO QAM #30 tabs 04/22/22 04/27/22 Rx famotidine 20 mg tablet 20 mg PO BID #60 tabs 04/22/22 04/27/22 Rx pantoprazole 40 mg tablet,delayed 40 mg PO BID #60 tabs 04/22/22 04/27/22 Rx release sodium bicarbonate 650 mg tablet 650 mg PO DAILY #30 tabs 04/22/22 04/27/22 Rx spironolactone 25 mg tablet 12.5 mg PO DAILY #30 tabs 04/22/22 04/27/22 Rx sucralfate 100 mg/mL oral 1 g (10 mL) PO ACHS #120 mL 04/23/22 04/27/22 Rx suspension rotigotine 2 mg/24 hour 2 mg transdermal HS 04/27/22 04/27/22 History transdermal 24 hour patch (Neupro) Past Med/Surg History Medical History Acid reflux Acute encephalopathy Acute hyponatremia Acute FL Acute UTI CAD (coronary artery disease) FL in [place] in 02/2022. 1 stent placed (believe LCx, but not sure). 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 Dehydration, mild DVT prophylaxis Dysuria Elevated troponin Hiatal hernia History of Hodgkin's lymphoma S/P RADIATION/CHEMO (2000) History of pelvic fracture Hyperlipidemia Hypertension Hypothyroidism Ischemic cardiomyopathy Mixed stress and urge urinary incontinence Nausea & vomiting Restless leg syndrome Rheumatoid arthritis ON PLAQUENIL AND CHRONIC PREDNISONE 7.5MG DAILY Sciatica Scoliosis Stage 3b chronic kidney disease Ventricular tachycardia Surgical History H/O foot surgery 2ND RT TOE REMOVED History of bilateral cataract extraction RIGHT CATARACT EXTRACTION WITH IOL= 04/05/18= MAC SEDATION AT [facility] History of colonoscopy History of gynecologic surgery ANTERIOR AND POSTERIOR REPAIR - colporrhaphy (for pelvic relaxation) History of removal of cyst HEAD (BENIGN) History of tonsillectomy History of tooth extraction History of total knee replacement RT History of urologic surgery URETEROLYSIS- 04/1995 [facility] [place] S/P coronary artery stent placement S/P ICD (internal cardiac defibrillator) procedure S/P vaginal hysterectomy Family History Mother , age 80 Cardiac disorder Family history of lung cancer Brother Diabetes Family history of lung cancer Family history of diabetes mellitus Daughter Breast cancer Father , age 57 Cardiac disorder Grandmother Diabetes Aunt Ovarian cancer paternal aunt Grandmother (Paternal) Family history of diabetes mellitus Other Cancer Heart disease No family history of adverse response to anesthesia No family history of bleeding disorder Denies family history of Colon cancer Colorectal cancer Social History Smoking Status: Former smoker Tobacco Type: Cigarettes Cigarettes Per Day: QUIT + 30 YEARS AGO; Second Hand Exposure: No; Hx Alcohol Use: No Hx Substance Use: No Preferred Language: Bulgarian Communication Ability: Effective Visual Impairment: No Limitations Hearing Ability: Use of Hearing Aid 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 NAD. Cooperative. HEENT: Atraumatic, normocephalic. Vision/hearing intact Pulm: Bibasilar rales. Symmetrical chest rise. No increase in work of breathing. No respiratory distress. Cardiac: RRR, -mrg. Radial pulses intact and symmetrical. Abdominal: Diffusely tender without focal tenderness , nondistended, soft. BS present. Ext: +Bilat LE edema. Soft, nontender. Investigative Analyst strength ankle dorsi/plantarflexion 5/5 bilat Results & Data Results & Data ([facility]) Vital Signs (Past 12 Hours) Vital Signs Temp Pulse Pulse Resp BP BP Pulse Ox 04/27/22 15:14 52 L 18 122/75 100 04/27/22 14:16 89 L 04/27/22 14:13 59 L 18 102/70 89 L 04/27/22 13:10 54 L 18 124/77 98 04/27/22 11:15 35.4 C L 50 L 20 112/77 98 O2 Del Method O2 Flow Rate 04/27/22 15:14 Nasal Cannula 2 04/27/22 14:16 Nasal Cannula 0 04/27/22 14:13 Room Air 04/27/22 13:10 Room Air 04/27/22 11:15 Room Air PG Care Time/CCT Total # of Minutes Spent Total Time Spent with Patient: Total time spent is greater than 50% in coordination of care (as documented) at patient's floor/unit and/or counseling patient: Coding Level of Care Code 36650 Initial Inpt Care Lvl 3 Diagnoses Acute on chronic systolic CHF (congestive heart failure) I50.23 Acute kidney injury N17.9 Chronic hyponatremia E87.1 Elevated transaminase level R74.01 Hx of Hodgkin's disease Z85.71 Hyperlipidemia E78.5 Hypertension I10 Hypertension type: primary hypertension Rheumatoid arthritis M06.041; M06.042 Rheumatoid arthritis location: hand Rheumatoid factor presence: without rheumatoid factor Laterality: bilateral S/P coronary artery stent placement Z95.5 S/P ICD (internal cardiac defibrillator) procedure Z95.810 Stage 3b chronic kidney disease N18.32 (1) Hypertension Hypertension type: primary hypertension Qualified Code(s): I10 - Essential (primary) hypertension (2) Rheumatoid arthritis Rheumatoid arthritis location: hand Rheumatoid factor presence: without rheumatoid factor Laterality: bilateral Qualified Code(s): M06.041 - Rheumatoid arthritis without rheumatoid factor, right hand; M06.042 - Rheumatoid arthritis without rheumatoid factor, left hand
--- NOTE | 2022-04-27 16:41 | Electrocardiogram Report ---
Test Reason : Blood Pressure : / mmHG Vent. Rate : 052 BPM Atrial Rate : 052 BPM P-R Int : 184 ms QRS Dur : 108 ms QT Int : 562 ms P-R-T Axes : 035 -36 -15 degrees QTc Int : 522 ms Sinus bradycardia Possible Left atrial enlargement Left axis deviation Low voltage QRS Anterolateral infarct (cited on or before 06-MAR-2022) Prolonged QT Abnormal ECG When compared with ECG of 19-APR-2022 16:16, Nonspecific T wave abnormality now evident in Anterior leads Confirmed by Carlos Figueroa ([id number]) on 04/27/2022 4:40:51 PM Referred By: Confirmed By:Carlos Figueroa
--- NOTE | 2022-04-27 17:22 | Emergency Department Note ---
History of Present Illness General Chief Complaint: Hypotension Stated Complaint: LOW BLOOD PRESSURE TAKEN AT THERAPY Time Seen by Provider: 04/27/22 12:00 History of Present Illness Provider Complaint: chest pain Onset (ago): day(s) 1 Duration: now resolved Onset: during exertion Pain Location: substernal Pain Radiation: none Severity: moderate Current Pain Intensity: 0 Quality: + aching and + heaviness Relieved By: + rest Exacerbated By: + exertion Context: no recent illness, no recent surgery, no recent travel, no trauma/injury or no history of DVT/PE Associated symptoms: + dyspnea; no nausea, no diaphoresis, no syncope, no palpitations, no fever, no cough or no leg swelling Patient also reports epigastric abdominal pain. Home Medications Medication Instructions Recorded Confirmed Type acetaminophen 325 mg tablet 650 mg PO Q4 PRN Pain 03/19/22 04/27/22 History (Tylenol) amiodarone 200 mg tablet 200 mg PO DAILY 03/19/22 04/27/22 History docusate sodium 100 mg capsule 100 mg PO BID 03/19/22 04/27/22 History ferrous sulfate 325 mg (65 mg 325 mg PO DAILY 03/19/22 04/27/22 History iron) tablet (iron) levothyroxine 100 mcg tablet 100 mcg PO DAILY 03/19/22 04/27/22 History multivitamin 1 tab PO DAILY 03/19/22 04/27/22 History prednisone 5 mg tablet 5 mg PO DAILY 03/19/22 04/27/22 History hydroxyzine HCl 25 mg tablet 25 mg PO HS PRN Anxiety 04/08/22 04/27/22 History metoprolol succinate 25 mg 25 mg PO DAILY 04/08/22 04/27/22 History tablet,extended release 24 hr thiamine HCl (vitamin B1) 100 mg 100 mg PO DAILY 04/08/22 04/27/22 History tablet furosemide 40 mg tablet 40 mg PO DAILY PRN weight gain 04/14/22 04/27/22 History senna-docusate sodium tablet 1 tab PO BID PRN Constipation 04/14/22 04/27/22 History tramadol 50 mg tablet 50 mg PO Q6H PRN Pain #240 tabs 04/14/22 04/27/22 Rx atorvastatin 80 mg tablet 80 mg PO DAILY #90 tabs 04/16/22 04/27/22 Rx apixaban 2.5 mg tablet (Eliquis) 2.5 mg PO BID #60 tabs 04/19/22 04/27/22 Rx clopidogrel 75 mg tablet 75 mg PO QAM #30 tabs 04/22/22 04/27/22 Rx famotidine 20 mg tablet 20 mg PO BID #60 tabs 04/22/22 04/27/22 Rx pantoprazole 40 mg tablet,delayed 40 mg PO BID #60 tabs 04/22/22 04/27/22 Rx release sodium bicarbonate 650 mg tablet 650 mg PO DAILY #30 tabs 04/22/22 04/27/22 Rx spironolactone 25 mg tablet 12.5 mg PO DAILY #30 tabs 04/22/22 04/27/22 Rx sucralfate 100 mg/mL oral 1 g (10 mL) PO ACHS #120 mL 04/23/22 04/27/22 Rx suspension rotigotine 2 mg/24 hour 2 mg transdermal HS 04/27/22 04/27/22 History transdermal 24 hour patch (Neupro) Allergies Allergy/AdvReac Type Severity Reaction Status Date / Time gabapentin Allergy Unknown Verified 04/18/22 19:05 Past Med/Surg History Medical History Acid reflux Acute encephalopathy Acute hyponatremia Acute DC Acute UTI CAD (coronary artery disease) DC in [place] in 02/2022. 1 stent placed (believe LCx, but not sure). 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 Dehydration, mild DVT prophylaxis Dysuria Elevated troponin Hiatal hernia History of Hodgkin's lymphoma S/P RADIATION/CHEMO (2000) History of pelvic fracture Hyperlipidemia Hypertension Hypothyroidism Ischemic cardiomyopathy Mixed stress and urge urinary incontinence Nausea & vomiting Restless leg syndrome Rheumatoid arthritis ON PLAQUENIL AND CHRONIC PREDNISONE 7.5MG DAILY Sciatica Scoliosis Stage 3b chronic kidney disease Ventricular tachycardia Surgical History H/O foot surgery 2ND RT TOE REMOVED History of bilateral cataract extraction RIGHT CATARACT EXTRACTION WITH IOL= 04/05/18= MAC SEDATION AT [facility] History of colonoscopy History of gynecologic surgery ANTERIOR AND POSTERIOR REPAIR - colporrhaphy (for pelvic relaxation) History of removal of cyst HEAD (BENIGN) History of tonsillectomy History of tooth extraction History of total knee replacement RT History of urologic surgery [place]- [place] [facility] [place] coronary artery stent placement S/P ICD (internal cardiac defibrillator) procedure S/P vaginal hysterectomy Family History Mother , age 80 Cardiac disorder Family history of lung cancer Brother Diabetes Family history of lung cancer Family history of diabetes mellitus Daughter Breast cancer Father , age 57 Cardiac disorder Grandmother Diabetes Aunt Ovarian cancer paternal aunt Grandmother (Paternal) Family history of diabetes mellitus Other Cancer Heart disease No family history of adverse response to anesthesia No family history of bleeding disorder Denies family history of Colon cancer Colorectal cancer Social History Smoking Status: Former smoker Tobacco Type: Cigarettes Cigarettes Per Day: QUIT + 30 YEARS AGO; Second Hand Exposure: No; Hx Alcohol Use: No Hx Substance Use: No Preferred Language: Turkmen Communication Ability: Effective Visual Impairment: No Limitations Hearing Ability: Use of Hearing Aid Slicing Machine Operator/Tender Required: No Beliefs That Will Affect Care: None marital status: / Current Living Situation: Personal Care Facility Current Living Situation Comment: [facility] 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 [employer] Feels Safe at Home: Yes Childhood Exposure to Second-Hand Smoke: Yes (parent smoked) Dental Care, Regularly: Yes Sunscreen Use: Yes (occasionally) Assistive Devices: Walker Review of Systems A total of 10 systems reviewed and were otherwise negative Physical Exam Vital Signs Vital Signs - 24 hr 04/27/22 11:15 04/27/22 13:10 04/27/22 14:13 Temperature 35.4 C L Temperature Source Temporal Artery Scan Pulse Rate 50 L Pulse Rate [Finger] 54 L 59 L Respiratory Rate 20 18 18 Respiratory Effort / Characteristics Non-Labored Spontaneous Respiratory Depth Normal Respiratory Pattern Regular Blood Pressure 112/77 Blood Pressure [Left Arm] 124/77 102/70 Blood Pressure Mean 88 Blood Pressure Mean [Left Arm] 92 80 Blood Pressure Position Lying Pulse Oximetry 98 98 89 L Oxygen Delivery Method Room Air Room Air Room Air Oxygen Flow Rate Sepsis Recent Fever Within 48 Hours No Sepsis New/Unexplained Change in Mental Status N/A Sepsis Action Taken by Nursing No Action Required Oxygen Flow Rate - Titration Pulse Oximetry Post Tiitration 04/27/22 14:16 04/27/22 15:14 Temperature Temperature Source Pulse Rate Pulse Rate [Finger] 52 L Respiratory Rate 18 Respiratory Effort / Characteristics Respiratory Depth Respiratory Pattern Blood Pressure Blood Pressure [Left Arm] 122/75 Blood Pressure Mean Blood Pressure Mean [Left Arm] 90 Blood Pressure Position Pulse Oximetry 89 L 100 Oxygen Delivery Method Nasal Cannula Nasal Cannula Oxygen Flow Rate 0 2 Sepsis Recent Fever Within 48 Hours Sepsis New/Unexplained Change in Mental Status Sepsis Action Taken by Nursing Oxygen Flow Rate - Titration 2 Pulse Oximetry Post Tiitration 92 Physical Exam GENERAL: She is oriented to person, place, and time. She appears well-developed and well-nourished. She does not appear distressed. HENT: Exam performed. -Head: Normocephalic and atraumatic. -Right Ear: External ear normal. No mastoid tenderness. -Left Ear: External ear normal. No mastoid tenderness. -Mouth/Throat: The oropharynx is clear and moist. No trismus in the jaw. No dental abscesses or uvula swelling. No oropharyngeal exudate or tonsillar abscesses. EYES: Conjunctivae and EOM are normal. Pupils are equal, round, and reactive to light. Right eye exhibits no discharge. Left eye exhibits no discharge. No scleral icterus. NECK: Normal range of motion. Neck supple. No JVD present. No spinous process tenderness present. No carotid bruit present. No rigidity. No tracheal deviation and normal range of motion present. No Brudzinski's sign and no Kernig's sign noted. CV: Normal rate, regular rhythm, normal heart sounds and intact distal pulses. There is no peripheral edema. Palpable radial pulses bue. PULM/CHEST: Effort normal and breath sounds normal. No respiratory distress. No stridor. She has no wheezes. She has no rales. -Chest Wall: She exhibits no tenderness. ABD: The abdomen is soft. Bowel sounds are normal. She has no distension. No mass is present. There is no tenderness. There is no rebound, no guarding, no Guido's sign and no tenderness at McBurney's point. Rovsig negative MUSC/SKEL: Normal range of motion. There is no peripheral edema, tenderness or deformity. LYMPH: No cervical adenopathy. NEURO: She is alert and oriented to person, place, and time. She has normal strength. No cranial nerve deficit or sensory deficit. Coordination and gait normal. GCS eye subscore is 4. GCS verbal subscore is 5. GCS motor subscore is 6. Cerebellar tests wnl. SKIN: Skin is warm and dry. She is not diaphoretic. PSYCH: She has a normal mood and affect. Behavior is normal. Judgment and thought content normal. Course Course 1200: The patient was evaluated in room B9. A complete history and physical exam was performed Cardiac monitoring: An order was placed for continuous cardiac monitoring. The monitor shows a rate of 50 with sinus rhythm 1400: Labs show INR of 2.4. Sodium stable at 129. Glucose 65. 1 amp of D50 given to the patient. Patient's creatinine elevated at 2.87. AST 178 ALT 121 alkaline phosphatase 240. Chest x-ray shows cardiomegaly with pulmonary edema. 1445: Patient became hypoxic on room air. 2 L supplemental oxygen was given to the patient which improved her oxygen saturation. Patient CT of the abdomen showed progressive edema within the right side of the abdomen and perihepatic pe riportal locations. There is sludge and stone filled gallbladder with pericholecystic edema. Mild peripancreatic mesenteric edema. EMR was reviewed. Patient was recently seen in March 2022 and had a transaminitis with a possible acalculous cholecystitis. Patient was evaluated by general surgery and was told she is not a good surgical candidate. The patient and family at bedside state that when they spoke with the surgeon they elected not to have any surgical procedure done because did not think that the patient would be able to tolerate a surgical procedure. I discussed the case with the [facility] team Dr. Kendrick who will admit the patient to his service. Administered Medications Discontinued Medications Dextrose (Dextrose 50% 50 Ml Syringe) 50 ml IV NOW ONE Stop: 04/27/22 14:00 Last Admin: 04/27/22 14:06 Dose: 50 ml Documented By: CHARLES Medical Decision Making Laboratory Data Result diagrams: 04/27/22 12:18 04/27/22 12:18 Labs: Lab Results 04/27/22 04/27/22 04/27/22 Range/Units 12:18 12:18 12:18 WBC 7.61 (4.8-10.8) K/ul RBC 3.50 L (3.93-5.22) M/uL Hgb 11.0 L (12.0-16.0) g/dl Hct 34.5 (34.1-44.9) % MCV 98.6 (80.0-100.0) fL MCH 31.4 (25.0-34.0) pg MCHC 31.9 L (32.0-36.0) g/dL RDW Std Deviation 67.2 H (36.4-46.3) fL RDW Coeff of Sachin 19.0 H (11.5-14.5) % Plt Count 216 (130-400) K/uL MPV 9.3 L (9.4-12.3) fL Immature Gran % (Auto) 1.1 % Neut % (Auto) 72.5 % Lymph % (Auto) 17.2 % Kendall % (Auto) 8.7 % Eos % (Auto) 0.4 % Baso % (Auto) 0.1 % Neut # (Auto) 5.52 (1.4-6.5) K/uL Lymph # (Auto) 1.31 (1.2-3.4) K/uL Kendall # (Auto) 0.66 (0.24-0.82) K/uL Eos # (Auto) 0.03 (0-0.50) K/uL Baso # (Auto) 0.01 (0-0.2) K/uL Immature Gran # (Auto) 0.08 H (0.00-0.02) K/uL Absolute Nucleated RBC 0.05 H (0-0) K/uL Nucleated RBC % (auto) 0.7 % PT 24.5 H (9.0-12.0) Seconds INR 2.4 H (0.9-1.1) APTT 44.7 H (21.0-31.0) Seconds PTT Ratio 1.6 Sodium 129 L (136-145) mmol/L Potassium 4.7 (3.5-5.1) mmol/L Chloride 94 L (98-107) mmol/L Carbon Dioxide 16 L (21-32) mmol/L Anion Gap 19 H (3-11) BUN 67 H (6-23) mg/dl Creatinine 2.87 H (0.6-1.2) mg/dl Est Cr Clr Drug Dosing Not Reportable Est GFR ( Amer) 17.3 ml/min Est GFR (Non-Af Amer) 15.0 ml/min BUN/Creatinine Ratio 23.3 H (10-20) Glucose 65 L (70-99(Fasting)) mg/dl POC Glucose (70-99) mg/dl Lactate (0.4-2.0) mmol/L Calcium 8.8 (8.5-10.1) mg/dl Magnesium 2.4 (1.7-2.4) mg/dl Total Bilirubin 1.0 (0.2-1.0) mg/dl AST 178 H (13-39) U/L ALT 121 H (7-52) U/L Alkaline Phosphatase 240 H (34-104) U/L Troponin I High Sens 49.6 H D (0-14) pg/ml Total Protein 6.7 (6.0-8.3) gm/dl Albumin 3.7 (3.4-5.0) gm/dl Globulin 3.0 (2.5-4.0) gm/dl Albumin/Globulin Ratio 1.2 (0.9-2) SARS-CoV-2, RNA, NAAT (NEGATIVE) 04/27/22 04/27/22 04/27/22 Range/Units 15:12 15:19 15:59 WBC (4.8-10.8) K/ul RBC (3.93-5.22) M/uL Hgb (12.0-16.0) g/dl Hct (34.1-44.9) % MCV (80.0-100.0) fL MCH (25.0-34.0) pg MCHC (32.0-36.0) g/dL RDW Std Deviation (36.4-46.3) fL RDW Coeff of Sachin (11.5-14.5) % Plt Count (130-400) K/uL MPV (9.4-12.3) fL Immature Gran % (Auto) % Neut % (Auto) % Lymph % (Auto) % Kendall % (Auto) % Eos % (Auto) % Baso % (Auto) % Neut # (Auto) (1.4-6.5) K/uL Lymph # (Auto) (1.2-3.4) K/uL Kendall # (Auto) (0.24-0.82) K/uL Eos # (Auto) (0-0.50) K/uL Baso # (Auto) (0-0.2) K/uL Immature Gran # (Auto) (0.00-0.02) K/uL Absolute Nucleated RBC (0-0) K/uL Nucleated RBC % (auto) % PT (9.0-12.0) Seconds INR (0.9-1.1) APTT (21.0-31.0) Seconds PTT Ratio Sodium (136-145) mmol/L Potassium (3.5-5.1) mmol/L Chloride (98-107) mmol/L Carbon Dioxide (21-32) mmol/L Anion Gap (3-11) BUN (6-23) mg/dl Creatinine (0.6-1.2) mg/dl Est Cr Clr Drug Dosing Est GFR ( Amer) ml/min Est GFR (Non-Af Amer) ml/min BUN/Creatinine Ratio (10-20) Glucose (70-99(Fasting)) mg/dl POC Glucose 100 H (70-99) mg/dl Lactate 4.7 H* (0.4-2.0) mmol/L Calcium (8.5-10.1) mg/dl Magnesium (1.7-2.4) mg/dl Total Bilirubin (0.2-1.0) mg/dl AST (13-39) U/L ALT (7-52) U/L Alkaline Phosphatase (34-104) U/L Troponin I High Sens (0-14) pg/ml Total Protein (6.0-8.3) gm/dl Albumin (3.4-5.0) gm/dl Globulin (2.5-4.0) gm/dl Albumin/Globulin Ratio (0.9-2) SARS-CoV-2, RNA, NAAT NEGATIVE (NEGATIVE) Imaging Data Chest x-ray: Radiologist's impression: XR chest 1V portable HISTORY: 81 years-old Female cp sob acute shortness of breath with chest pain COMPARISON: Chest radiograph 03/19/2022 TECHNIQUE: Semierect AP view of the chest FINDINGS: The patient is mildly rotated towards the left. Left subclavian pacer/AICD. Atherosclerosis of the aorta. No pneumothorax. Pulmonary vascular congestion with interstitial coarsening. Small pleural effusions with mild bibasilar consolidation. Bones appear grossly intact. IMPRESSION: 1. Cardiomegaly with pulmonary edema. 2. Small pleural effusions with mild bibasilar consolidation. ACT 112: Negative or not required by law. The above report was generated using voice recognition software. It may contain grammatical, syntax or spelling errors. Electronically signed by: Ted Wesley M.D. 04/27/2022 1:16 PM Dictated:04/27/22 1315 Transcribed: 04/27/[address] scan - abdomen: Radiologist's impression: ABDOMEN AND PELVIS CT WITHOUT CONTRAST CT DOSE: 245.98 mGy.cm HISTORY: Acute kidney injury. Transaminitis TECHNIQUE: Multiaxial CT images of the abdomen and pelvis were performed without contrast. A dose lowering technique was utilized adhering to the principles of ALARA. COMPARISON STUDY: Abdomen and pelvis CT 03/19/2022. FINDINGS: Mild interlobular septal thickening at the lung bases likely representing mild pulmonary edema. There are small bilateral pleural effusions, right greater than left, unchanged. There is associated atelectasis within the lower lobes posteriorly. A pacemaker wire is noted. The heart remains enlarged. There is a large hiatus hernia containing the majority of the stomach. There is an old right inferior pubic ramus fracture. Levoscoliosis of the lumbar spine. Mild to moderate body wall edema which has progressed. The bladder is unremarkable. Prior hysterectomy. Stable 16 mm cystic focus along the left vag inal cuff. Trace perihepatic ascites associated progressed. There is perihepatic/periportal fat stranding/edema which is also slightly progressed. Layering sludge/stones within the gallbladder remains unchanged. Right greater than left perinephric edema is also progressed. Borderline thickening within the ascending colon/hepatic flexure of the colon, unchanged. No definite hepatic or splenic masses. The normal General glands. Markedly atrophic left kidney, unchanged. No right-sided hydronephrosis. Mild peripancreatic edema and mild right mesenteric edema has slightly progressed. Suboptimal evaluation for bowel pathology due to the lack of intravenous and oral contrast. Colonic diverticulosis. No evidence for acute diverticulitis. Normal appendix. No evidence for bowel obstruction. Severe calcified plaque within the bilateral common femoral arteries. No change in the mesenteric soft tissue nodule measuring 2.3 cm with central calcifications. Surgical clips noted within the right side the abdomen. No change in the mild periaortic soft tissue thickening. IMPRESSION: 1. Progressive edema within the right side of the abdomen centered at the perihepatic/periportal locations. This nonspecific and could be due to a diffuse edematous state or underlying hepatic pathology. 2. Sludge and stone filled gallbladder with pericholecystic edema. This is likely due to the underlying hepatic pathology. An acute cholecystitis is considered less likely given the lack of significant change but not entirely excluded. 3. Mild peripancreatic and mesenteric edema is likely due to the patient's dif fuse edematous state. Recommend correlation with pancreatic enzymes due to the less likely possibility of a developing acute pancreatitis. 4. Interval progression of the mild to moderate body wall edema and trace ascites. Mild pulmonary edema and small bilateral pleural effusions again noted. 6. Thickening within the proximal colon is likely due to the diffuse edematous state. A low-grade colitis could also a similar appearance in the appropriate clinical setting. 7. Additional findings as described above. ACT 112: Negative or not required by law. Electronically signed by: Guillermo Tolbert M.D. 04/27/2022 3:17 PM Dictated:04/27/22 145 Transcribed: 04/27/221456 ECG Data Additional Comments: EKG #1 at 1137: Sinus rhythm with a rate of 52. DC 184 QRS [address] elevation or ST depression. When compared to previous EKGs there is no prolo nged QTC. EKG #2 at 1316: Sinus rhythm with a rate of 53. DC 184 QRS [address] elevation or ST depression. No significant change from the previous EKG done earlier today. MDM Narrative 1200: The patient was evaluated in room B9. A complete history and physical exam was performed Cardiac monitoring: An order was placed for continuous cardiac monitoring. The monitor shows a rate of 50 with sinus rhythm 1400: Labs show INR of 2.4. Sodium stable at 129. Glucose 65. 1 amp of D50 given to the patient. Patient's creatinine elevated at 2.87. AST 178 ALT 121 alkaline phosphatase 240. Chest x-ray shows cardiomegaly with pulmonary edema. 1445: Patient became hypoxic on room air. 2 L supplemental oxygen was given to the patient which improved her oxygen saturation. Patient CT of the abdomen showed progressive edema within the right side of the abdomen and perihepatic periportal locations. There is sludge and stone filled gallbladder with pericholecystic edema. Mild peripancreatic mesenteric edema. EMR was reviewed. Patient was recently seen in March 2022 and had a transaminitis with a possible acalculous cholecystitis. Patient was evaluated by general surgery and was told she is not a good surgical candidate. The patient and family at bedside state that when they spoke with the surgeon they elected not to have any surgical procedure done because did not think that the patient would be able to tolerate a surgical procedure. I discussed the case with the [facility] team Dr. Kendrick who will admit the patient to his service. Impression & Plan Hypoxia, Chronic systolic CHF (congestive heart failure), Transaminitis, [id number] kidney injury, QT prolongation Critical Care Time Critical Care Time: Yes Total Critical Care Time: 79 I have personally spent greater than 79 minutes of critical care time in the direct management of this patient. This includes bedside care, interpretation of diagnostic studies, and testing, discussion with consultants, patient, and family members, and other required patient management activities. This 79 minutes is in excess of all separately billable procedures. Discharge Plan Visit Data Chief Complaint: Hypotension Stated Complaint: LOW BLOOD PRESSURE TAKEN AT THERAPY ED Provider: Nahun Soler Discharge Problem: Hypoxia, Chronic systolic CHF (congestive heart failure), Transaminitis, [id number] kidney injury, QT prolongation Patient Disposition: Admitted As Inpatient Forms Stand Alone Forms: My [facility] Prescriptions Prescriptions: No Action sucralfate 100 mg/mL suspension 1 g PO ACHS Qty: 120 5RF tramadol 50 mg tablet 50 mg PO Q6H PRN (Reason: Pain) Qty: 240 0RF atorvastatin 80 mg tablet 80 mg PO DAILY Qty: 90 3RF thiamine HCl (vitamin B1) 100 mg tablet 100 mg PO DAILY hydroxyzine HCl 25 mg tablet 25 mg PO HS PRN (Reason: Anxiety) metoprolol succinate 25 mg tablet extended release 24 hr 25 mg PO DAILY furosemide 40 mg tablet 40 mg PO DAILY PRN (Reason: weight gain) multivitamin Tablet 1 tab PO DAILY acetaminophen [Tylenol] 325 mg Tablet 650 mg PO Q4 PRN (Reason: Pain) amiodarone 200 mg tablet 200 mg PO DAILY levothyroxine 100 mcg tablet 100 mcg PO DAILY ferrous sulfate [iron] 325 mg (65 mg iron) Tablet 325 mg PO DAILY docusate sodium 100 mg Capsule 100 mg PO BID prednisone 5 mg Tablet 5 mg PO DAILY senna-docusate sodium Tablet 1 tab PO BID PRN (Reason: Constipation) Eliquis 2.5 mg tablet 2.5 mg PO BID Qty: 60 0RF clopidogrel 75 mg Tablet 75 mg PO QAM Qty: 30 0RF famotidine 20 mg Tablet 20 mg PO BID Qty: 60 0RF sodium bicarbonate 650 mg Tablet 650 mg PO DAILY Qty: 30 0RF spironolactone 25 mg Tablet 12.5 mg PO DAILY Qty: 30 0RF pantoprazole 40 mg tablet,delayed release (DR/EC) 40 mg PO BID Qty: 60 0RF Neupro 2 mg/24 hour patch 24 hour 2 mg transdermal HS Rx Instructions: remove daily Referrals Referrals: Maddison Metzger MD [Primary Care Provider] -
[2022-04-27] MEDS ORDERED: FUROSEMIDE 40 MG/4 ML VIAL IV ONE (17:30)
[2022-04-27] MEDS ORDERED: ALUMINUM/MAGNESIUM SUSP 30 ML UDC PO PRN (18:15)
[2022-04-27] MEDS ORDERED: hydrOXYzine HCl 25 MG TAB PO PRN (18:15)
[2022-04-27] MEDS ORDERED: DOCUSATE SODIUM/SENNA 50/8.6MG TAB PO PRN (19:35)
[2022-04-27] MEDS: DOCUSATE SODIUM 100 MG CAP PO SCH (20:35)
[2022-04-27] MEDS: traMADol HCL 50 MG TABLET PO PRN (20:35)
[2022-04-27] MEDS: APIXABAN 2.5 MG TAB PO SCH (20:35)
[2022-04-27] MEDS: FAMOTIDINE 20 MG TAB PO SCH (20:35)
[2022-04-27] MEDS: PANTOprazole 40 MG TAB PO SCH (20:35)
[2022-04-27] MEDS: ROTIGOTINE 1 MG/24 HR TD SCH (20:36)
[2022-04-27 20:52] LABS: Appearance Urine Cloudy (Clear); Bacteria Urine Automated 4+ (Negative); Bilirubin Urine Negative (Negative); Blood Urine Negative (Negative); Color Urine Dark Yellow; Glucose Urine UA Negative (Negative); Ketones Urine Negative (Negative); Leukocyte Esterase Urine 1+ (Negative); Nitrite Urine Negative (Negative); Protein Urine Negative (Negative); RBC Urine Automated 0-4 /hpf (0-4); Specific Gravity Urine 1.014 (1.000-1.030); Urobilinogen Urine Negative (Negative)
[2022-04-28] MEDS: LEVOTHYROXINE SODIUM 100 MCG TABLET PO SCH (06:13)
[2022-04-28 08:43] LABS: Alanine Aminotransferase 182 U/L (7-52); Albumin Globulin Ratio 1.3 (0.9-2); Albumin Level 3.2 gm/dl (3.4-5.0); Alkaline Phosphatase 193 U/L (34-104); Anion Gap 13 (3-11); BUN Creatinine Ratio 24.6 (10-20); Bilirubin,Total 0.9 mg/dl (0.2-1.0); Blood Urea Nitrogen 75 mg/dl (6-23); Calcium 8.4 mg/dl (8.5-10.1); Carbon Dioxide 19 mmol/L (21-32); Chloride 97 mmol/L (98-107); Creatinine Clr Calc Pharmacy 9.7 ml/min; Est GFR (African American) 16.1 ml/min; Est GFR (Non-African American) 13.9 ml/min; Globulin 2.5 gm/dl (2.5-4.0); Glucose 55 mg/dl (70-99(Fasting)); Sodium 129 mmol/L (136-145); Total Protein 5.7 gm/dl (6.0-8.3); Troponin I High Sensitivity 59.1 pg/ml (0-14)
[2022-04-28] MEDS ORDERED: ATORVASTATIN 40 MG TAB PO SCH (09:00)
[2022-04-28 09:02] LABS: Basophils # (auto) 0.01 K/uL (0-0.2); Basophils % (auto) 0.1 %; Eosinophils # (auto) 0.05 K/uL (0-0.50); Eosinophils % (auto) 0.6 %; Hematocrit (blood only) 31.1 % (34.1-44.9); Hemoglobin 10.2 g/dl (12.0-16.0); Immature Granulocytes # (auto) 0.05 K/uL (0.00-0.02); Immature Granulocytes % (auto) 0.6 %; Lymphocytes # (auto) 0.77 K/uL (1.2-3.4); Mean Corpuscular Hemoglobin 31.2 pg (25.0-34.0); Mean Corpuscular Hgb Conc 32.8 g/dL (32.0-36.0); Mean Corpuscular Volume 95.1 fL (80.0-100.0); Mean Platelet Volume 9.8 fL (9.4-12.3); Monocytes # (auto) 0.25 K/uL (0.24-0.82); Monocytes % (auto) 2.9 %; Neutrophils % (auto) 86.8 %; Nucleated RBC # (auto) 0.07 K/uL (0-0); Nucleated RBC % (auto) 0.8 %; Platelet Count 180 K/uL (130-400); RDW Coefficient of Variation 18.6 % (11.5-14.5); RDW Standard Deviation 62.9 fL (36.4-46.3); Red Blood Count 3.27 M/uL (3.93-5.22); White Blood Count 8.53 K/ul (4.8-10.8)
[2022-04-28] MEDS: PANTOprazole 40 MG TAB PO SCH ×3 (09:32→21:03)
[2022-04-28] MEDS: APIXABAN 2.5 MG TAB PO SCH ×3 (09:32→21:02)
[2022-04-28] MEDS: SODIUM BICARBONATE 650 MG TAB PO SCH ×2 (09:32→09:50)
[2022-04-28] MEDS: METOPROLOL SUCC 25MG EXT REL TAB PO SCH ×2 (09:32→09:48)
[2022-04-28] MEDS: FERROUS SULFATE 325 MG TAB PO SCH ×2 (09:32→09:48)
[2022-04-28] MEDS: predniSONE 5 MG TAB PO SCH ×2 (09:32→09:49)
[2022-04-28] MEDS: DOCUSATE SODIUM 100 MG CAP PO SCH ×3 (09:32→21:03)
[2022-04-28] MEDS: AMIODARONE 200 MG TAB PO SCH ×2 (09:32→09:47)
[2022-04-28] MEDS: THIAMINE HCL 100 MG TAB PO SCH ×2 (09:32→09:50)
[2022-04-28] MEDS: MULTIVITAMIN TAB PO SCH ×2 (09:32→09:48)
[2022-04-28] MEDS: CLOPIDOGREL BISULFATE 75 MG TAB PO SCH ×2 (09:32→09:47)
[2022-04-28] MEDS: FAMOTIDINE 20 MG TAB PO SCH (09:48)
--- NOTE | 2022-04-28 09:55 | Hospitalist Progress Note ---
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 Troponin elevated due to demand ishcemia and not nstemi Updated echo shows severe LV dysfunction but not overall worse than previous echo EF 25-30 Given obvious fluid overload but with 1 nonfunctioning kidney and creatinine elevated from baseline 1.41.7-2.87 nephrology consulted agrees with diuresis No signs of bleeding Patient with underlying chronic gallbladder edema, no significant change and difficult to assess on CT due to diffuse edema. Patient is a poor surgical candidate and has been refused for surgical intervention both at this institution at [facility] in the past, was recommended to have enzymes trended and treated medically and surgery to be avoided unless refractory/emergent CAD, history of PCI to circumflex EF 40-45% History of V. tach, s/p ICD placement Continue Plavix, Eliquis Continue metoprolol Continued on amiodarone history of VT with pacer. This was to be followed as outpatient potentially discontinued in the future Continue statin ARF CKD 3 History of retroperitoneal fibrosis and left kidney atrophy Baseline creatinine approximately 1.4, acutely elevated to 2.8 on admission. Nephro consulted Started on bicarb 650 mg p.o. daily at last admission and with acute HFrEF given diuretics under guidance of nephrology Spironolactone held Hypertension Spironolactone held Embolic disease of the toe Right foot first toe, mobile focal thrombus of right iliac artery prior admission possible dislodgment post femoral access continued on Plavix/Eliquis Hypothyroidism Synthroid 100 mcg daily TSH 04/20 nl Chronic adrenal insufficiency On prednisone 5 mg p.o. daily Stress dose for acute illness DVT PPx: Heparin Diet: Low salt, HH Dispo: Med Tele volume overload and cardiac eval CODE: DNR/DNI (2) Acute kidney injury: (3) Chronic hyponatremia: (4) Elevated transaminase level: (5) Hx of Hodgkin's disease: (6) Hyperlipidemia: (7) Hypertension: (8) Rheumatoid arthritis: (9) S/P coronary artery stent placement: (10) S/P ICD (internal cardiac defibrillator) procedure: (11) Stage 3b chronic kidney disease: Admission and Anticipated Discharge Date Admission Date: April 27, 2022 Subjective pt states she is breathing much improved from previous, she has some foot pain R>L but not as severe as in the past Review of Systems Review of Systems: Mild distress and fatigue no headache, no visual changes no speech or swallowing issues no chest pain, pressure or palpitations Resolved shortness of breath, cough or wheezes no abdominal pain, nausea or vomiting, diarrhea or constipation no dysuria, hematuria or frequency Lateral foot pain no back pain, CVA tenderness or radicular pain no bruising, bleeding or rashes lateral foot cyanosis right greater than left no focal signs of weakness or numbness or altered sensation no complaints of anxiety or depression.. Physical Exam Physical Exam: The patient appeared well nourished and normally developed. Vital signs as documented. Head exam is normocephalic atraumatic Neck is without JVD, thyromegaly, or carotid bruits. Lungs are clear to auscultation, but diminished at the bases Cardiac exam, Rhythm is regular.. No murmurs, rubs or gallops. Abdominal exam reveals normal bowel sounds, soft non tender, no masses Extremities are edematous with bilateral changes of bunions of the first metatarsal phalangeal area the right foot is cyanotic with delayed capillary refill the left is much less so Neurologic exam is alert and oriented, no focal loss of strength or sensation Skin is without bruises or rashes cyanosis with no open areas Psychologically is without concerns for anxiety or depression.. Results & Data Results & Data ([facility]) Vital Signs (Past 12 Hours) Vital Signs Temp Pulse Pulse Resp BP Pulse Ox O2 Del Method 04/28/22 07:55 97.5 F L 51 L 16 106/68 99 Room Air 04/28/22 03:43 97.7 F 51 L 20 116/75 99 Nasal Cannula 04/27/22 23:10 56 L 04/27/22 22:56 53 L 18 124/82 98 Room Air O2 Flow Rate 04/28/22 07:55 04/28/22 03:43 2 04/27/22 23:10 04/27/22 22:56 PG Care Time/CCT Total # of Minutes Spent Total Time Spent with Patient: Total time spent is greater than 50% in coordination of care (as documented) at patient's floor/unit and/or counseling patient: Coding Level of Care Code 00152 Subseq Hosp Care Lvl 3 Diagnoses Acute on chronic systolic CHF (congestive heart failure) I50.23 Acute kidney injury N17.9 Chronic hyponatremia E87.1 Elevated transaminase level R74.01 Hx of Hodgkin's disease Z85.71 Hyperlipidemia E78.5 Hypertension I10 Hypertension type: primary hypertension Rheumatoid arthritis M06.041; M06.042 Laterality: bilateral Rheumatoid arthritis location: hand Rheumatoid factor presence: without rheumatoid factor S/P coronary artery stent placement Z95.5 S/P ICD (internal cardiac defibrillator) procedure Z95.810 Stage 3b chronic kidney disease N18.32 (1) Rheumatoid arthritis Laterality: bilateral Rheumatoid arthritis location: hand Rheumatoid factor presence: without rheumatoid factor Qualified Code(s): M06.041 - Rheumatoid arthritis without rheumatoid factor, right hand; M06.042 - Rheumatoid arthritis without rheumatoid factor, left hand (2) Hypertension Hypertension type: primary hypertension Qualified Code(s): I10 - Essential (primary) hypertension
[2022-04-28] MEDS: HYDROCORTISONE SOD 50 MG in SYRINGE 0 ML IV SCH ×2 (11:14→18:12)
[2022-04-28] MEDS: ACETAMINOPHEN 325 MG TAB PO PRN (11:19)
[2022-04-28] MEDS: traMADol HCL 50 MG TABLET PO PRN (11:20)
--- NOTE | 2022-04-28 11:51 | Nephrology Consultation ---
Date of Consultation April 28, 2022 Assessment & Plan (1) Acute kidney injury superimposed on CKD: (2) Hyponatremia: (3) Metabolic acidosis: (4) Elevated troponin: Plan 81-year-old female with stage IIIB CKD, baseline creatinine 1.4-1.6 with history of nonfunctioning left kidney secondary to retroperitoneal fibrosis, admitted to the hospital with generalized weakness for few days, weight gain and volume overload on admission. Received Lasix 120 mg x 1 dose with significant improvement in volume status overnight. Lab this morning showed further worsening of renal function to creatinine above 3. In fact clinically she does not look volume overloaded this morning. Sodium continues to be low at 129. -- Avoid any further diuretics at this time as clinically no sign of volume overload and rapid rise in BUN and creatinine after just 1 dose of diuretics. -- monitor renal function, accurate intake and output -- liberalize salt in diet, encourage protein intake --dose meds for eGFR <30. Avoid all nephrotoxic meds. --iron study Thank you for allowing me to participate in your patient's care. It was a pleasure to see Shruthi History of Present Illness Reason for Consultation: Acute kidney injury, volume overload. 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 Nephrology consult was requested for management of MURRAY and volume overload. EMR records are reviewed in detail during patient's visit. Shruthi presented to ER yesterday with progressive generalized weakness, abdominal discomfort, swelling, weight gain for few days. she was noted to be hypotensive while she was getting physical therapy yesterday. She has been having intermittent right upper quadrant and left upper quadrant abdominal discomfort and increasing orthopnea. she had been voiding normally and denied any dysuria, hematuria, fever or chills. On admission she was noted to have mild hyponatremia with sodium 129 with history of chronic hyponatremia. Creatinine was elevated at 2.9 with her baseline around 1.4-1.6. UA with no proteinuria, hematuria, had 4 +bacteria. Lactate was elevated. Blood pressure was acceptable. Clinically she looks volume overloaded and CT abdomen pelvis showed abdominal ascites, no hydronephrosis. In ER her blood pressure was found to be acceptable. She was given Lasix 120 mg IV x1 dose and overnight UO >1 L. Troponin was elevated. Has stage IIIB CKD, b/l cr 1.4-1.5 with history of retroperitoneal fibrosis and nonfunctioning left kidney. h/o CAD, acute [place] in February 2020 when she was visiting [place], had drug-eluting stent to LCx. Past medical history also significant for Hodgkin's lymphoma s/p radiation/chemo 2000, hyperlipidemia, hypertension, hypothyroidism, ischemic cardiomyopathy, rheumatoid arthritis on Plaquenil/prednisone. She was also recently found to have cholelithiasis but surgery was deferred considering high risk for complication. This morning she was lying in bed comfortable, no shortness of breath or chest pain. Awake and alert. Renal function worsened, cr 3.1, Na 129. Allergies Allergy/AdvReac Type Severity Reaction Status Date / Time gabapentin Allergy Unknown Verified 04/18/22 19:05 Home Medications Medication Instructions Recorded Confirmed Type acetaminophen 325 mg tablet 650 mg PO Q4 PRN Pain 03/19/22 04/27/22 History (Tylenol) amiodarone 200 mg tablet 200 mg PO DAILY 03/19/22 04/27/22 History docusate sodium 100 mg capsule 100 mg PO BID 03/19/22 04/27/22 History ferrous sulfate 325 mg (65 mg 325 mg PO DAILY 03/19/22 04/27/22 History iron) tablet (iron) levothyroxine 100 mcg tablet 100 mcg PO DAILY 03/19/22 04/27/22 History multivitamin 1 tab PO DAILY 03/19/22 04/27/22 History prednisone 5 mg tablet 5 mg PO DAILY 03/19/22 04/27/22 History hydroxyzine HCl 25 mg tablet 25 mg PO HS PRN Anxiety 04/08/22 04/27/22 History metoprolol succinate 25 mg 25 mg PO DAILY 04/08/22 04/27/22 History tablet,extended release 24 hr thiamine HCl (vitamin B1) 100 mg 100 mg PO DAILY 04/08/22 04/27/22 History tablet furosemide 40 mg tablet 40 mg PO DAILY PRN weight gain 04/14/22 04/27/22 History senna-docusate sodium tablet 1 tab PO BID PRN Constipation 04/14/22 04/27/22 History tramadol 50 mg tablet 50 mg PO Q6H PRN Pain #240 tabs 04/14/22 04/27/22 Rx atorvastatin 80 mg tablet 80 mg PO DAILY #90 tabs 04/16/22 04/27/22 Rx apixaban 2.5 mg tablet (Eliquis) 2.5 mg PO BID #60 tabs 04/19/22 04/27/22 Rx clopidogrel 75 mg tablet 75 mg PO QAM #30 tabs 04/22/22 04/27/22 Rx famotidine 20 mg tablet 20 mg PO BID #60 tabs 04/22/22 04/27/22 Rx pantoprazole 40 mg tablet,delayed 40 mg PO BID #60 tabs 04/22/22 04/27/22 Rx release sodium bicarbonate 650 mg tablet 650 mg PO DAILY #30 tabs 04/22/22 04/27/22 Rx spironolactone 25 mg tablet 12.5 mg PO DAILY #30 tabs 04/22/22 04/27/22 Rx sucralfate 100 mg/mL oral 1 g (10 mL) PO ACHS #120 mL 04/23/22 04/27/22 Rx suspension rotigotine 2 mg/24 hour 2 mg transdermal HS 04/27/22 04/27/22 History transdermal 24 hour patch (Neupro) Patient History Medical History Acid reflux Acute encephalopathy Acute hyponatremia Acute AZ Acute UTI CAD (coronary artery disease) [place] in [place] in 02/2022. 1 stent placed (believe LCx, but not sure). 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 Dehydration, mild DVT prophylaxis Dysuria Elevated troponin Hiatal hernia History of Hodgkin's lymphoma S/P RADIATION/CHEMO (2000) History of pelvic fracture Hyperlipidemia Hypertension Hypothyroidism Ischemic cardiomyopathy Mixed stress and urge urinary incontinence Nausea & vomiting Restless leg syndrome Rheumatoid arthritis ON PLAQUENIL AND CHRONIC PREDNISONE 7.5MG DAILY Sciatica Scoliosis Stage 3b chronic kidney disease Ventricular tachycardia Surgical History H/O foot surgery 2ND RT TOE REMOVED History of bilateral cataract extraction RIGHT CATARACT EXTRACTION WITH IOL= 04/05/18= MAC SEDATION AT [facility] History of colonoscopy History of gynecologic surgery ANTERIOR AND POSTERIOR REPAIR - colporrhaphy (for pelvic relaxation) History of removal of cyst HEAD (BENIGN) History of tonsillectomy History of tooth extraction History of total knee replacement RT History of urologic surgery URETEROLYSIS- 04/1995 [facility] S/P coronary artery stent placement S/P ICD (internal cardiac defibrillator) procedure S/P vaginal hysterectomy Family History Mother , age 80 Cardiac disorder Family history of lung cancer Brother Diabetes Family history of lung cancer Family history of diabetes mellitus Daughter Breast cancer Father , age 57 Cardiac disorder Grandmother Diabetes Aunt Ovarian cancer paternal aunt Grandmother (Paternal) Family history of diabetes mellitus Other Cancer Heart disease No family history of adverse response to anesthesia No family history of bleeding disorder Denies family history of Colon cancer Colorectal cancer Social History Smoking Status: Former smoker Tobacco Type: Cigarettes Cigarettes Per Day: QUIT + 30 YEARS AGO; Second Hand Exposure: No; Hx Alcohol Use: Yes Alcohol type: wine Alcohol Intake Frequency Comment: Social about every three months Hx Substance Use: No Preferred Language: [place]ian Communication Ability: Effective Visual Impairment: No Limitations Hearing Ability: Use of Hearing Aid Coding Quality Coordinator Required: No Beliefs That Will Affect Care: None marital status: / Current Living Situation: Rehab Current Living Situation Comment: [facility] 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 Physical Exam Constitutional: WD/WN, vitals as above + ill appearing; no acute distress Eyes: + anicteric sclerae Neck: normal visual inspection Respiratory: no respiratory distress Auscultation: lungs clear to auscultation bilaterally Cardiovascular: Rate/Rhythm: regular rate and regular rhythm Heart Sounds: normal S1 and normal S2 Extremities: no edema Gastrointestinal (Abdomen): Inspection/Auscultation: abdomen normal to inspection and normal bowel sounds Percussion/Palpation: abdomen soft; abdomen nontender Musculoskeletal: Extremities: extremities normal to inspection Skin: no rashes Neurologic: no focal motor deficits and not confused Psychiatric: Orientation: alert and oriented x 3 Affect: euthymic affect Results & Data ([facility]) Vital Signs (Past 12 Hours) Vital Signs Temp Pulse Pulse Resp BP Pulse Ox O2 Del Method 04/28/22 11:42 36.4 C L 54 L 16 127/77 96 Room Air 04/28/22 10:22 52 L 04/28/22 07:55 36.4 C L 51 L 16 106/68 99 Room Air 04/28/22 03:43 36.5 C 51 L 20 116/75 99 Nasal Cannula O2 Flow Rate 04/28/22 11:42 04/28/22 10:22 04/28/22 07:55 04/28/22 03:43 2 PG Care Time/CCT Total # of Minutes Spent Total Time Spent with Patient: Total time spent is greater than 50% in coordination of care (as documented) at patient's floor/unit and/or counseling patient: Coding Level of Care Code 06286 Initial Inpt Care Lvl 3 Diagnoses Acute kidney injury superimposed on CKD N17.9; N18.9 Hyponatremia E87.1 Metabolic acidosis E87.2 Elevated troponin R77.8
--- NOTE | 2022-04-28 11:54 | Electrocardiogram Report ---
Test Reason : Blood Pressure : / mmHG Vent. Rate : 053 BPM Atrial Rate : 053 BPM P-R Int : 184 ms QRS Dur : 112 ms QT Int : 568 ms P-R-T Axes : 054 -37 -04 degrees QTc Int : 532 ms Sinus bradycardia Possible Left atrial enlargement Left axis deviation Low voltage QRS Anterolateral infarct (cited on or before 06-MAR-2022) Prolonged QT Abnormal ECG When compared with ECG of 27-APR-2022 11:37, (unconfirmed) No significant change was found Confirmed by Carlos Figueroa ([id number]) on 04/28/2022 11:54:02 AM Referred By: REFERRED SELF Confirmed By:Carlos Figueroa
[2022-04-28] MEDS: ROTIGOTINE 1 MG/24 HR TD SCH (21:15)
[2022-04-29] MEDS: HYDROCORTISONE SOD 50 MG in SYRINGE 0 ML IV SCH ×3 (02:15→17:38)
[2022-04-29] MEDS: LEVOTHYROXINE SODIUM 100 MCG TABLET PO SCH (05:44)
[2022-04-29 06:53] LABS: Hematocrit (blood only) 31.4 % (34.1-44.9); Hemoglobin 10.6 g/dl (12.0-16.0); Mean Corpuscular Hemoglobin 31.2 pg (25.0-34.0); Mean Corpuscular Hgb Conc 33.8 g/dL (32.0-36.0); Mean Corpuscular Volume 92.4 fL (80.0-100.0); Nucleated RBC # (auto) 0.02 K/uL (0-0); Nucleated RBC % (auto) 0.2 %; Platelet Count 176 K/uL (130-400); RDW Coefficient of Variation 18.6 % (11.5-14.5); RDW Standard Deviation 61.1 fL (36.4-46.3); White Blood Count 9.85 K/ul (4.8-10.8)
[2022-04-29 07:24] LABS: Albumin Level 3.4 gm/dl (3.4-5.0); BUN Creatinine Ratio 27.5 (10-20); Calcium 8.5 mg/dl (8.5-10.1); Creatinine Clr Calc Pharmacy 10.1 ml/min; Est GFR (African American) 17.1 ml/min; Est GFR (Non-African American) 14.7 ml/min; Phosphorus 5.5 mg/dl (2.5-4.9); Potassium 3.8 mmol/L (3.5-5.1)
[2022-04-29] MEDS: PANTOprazole 40 MG TAB PO SCH ×2 (08:28→20:20)
[2022-04-29] MEDS: CLOPIDOGREL BISULFATE 75 MG TAB PO SCH (08:29)
[2022-04-29] MEDS: FAMOTIDINE 20 MG TAB PO SCH (08:29)
[2022-04-29] MEDS: DOCUSATE SODIUM 100 MG CAP PO SCH ×2 (08:29→20:20)
[2022-04-29] MEDS: MULTIVITAMIN TAB PO SCH (08:29)
[2022-04-29] MEDS: FERROUS SULFATE 325 MG TAB PO SCH (08:30)
[2022-04-29] MEDS: AMIODARONE 200 MG TAB PO SCH (08:30)
[2022-04-29] MEDS: APIXABAN 2.5 MG TAB PO SCH ×2 (08:30→20:20)
[2022-04-29] MEDS ORDERED: METOPROLOL TARTRATE 1 MG/ML VIAL IV PRN (08:36)
[2022-04-29] MEDS: ACETAMINOPHEN 325 MG TAB PO PRN ×2 (08:37→17:37)
--- NOTE | 2022-04-29 10:56 | Nephrology Progress Note ---
Date of Service April 29, 2022 Assessment & Plan (1) Acute kidney injury superimposed on CKD: (2) Hyponatremia: (3) Metabolic acidosis: (4) Elevated troponin: Plan 81-year-old F with stage IIIB CKD, b/l cr 1.4-1.6 with h/o nonfunctioning left kidney secondary to retroperitoneal fibrosis, admitted to the hospital with generalized weakness for few days, weight gain and volume overload on admission. Received Lasix 120 mg x 1 dose with significant improvement in volume status overnight. 2D echo showed decrease EF to 20-25%, hypokinesis. Renal function staying relatively stable without much improvement, electrolyte acceptable. -- monitor renal function, accurate intake and output. continue to hold diuretics. -- liberalize salt in diet, encourage protein intake --dose meds for eGFR <30. Avoid all nephrotoxic meds. -- considering severe cardiomyopathy, multiple other comorbidity including nonfunctioning left kidney with retroperitoneal fibrosis, cholelithiasis and high risk for surgery, she would like to discuss options including going home with hospice care. Palliative consult was placed as per patient request. Admission and Anticipated Discharge Date Admission Date: April 27, 2022 Renetta Hawkins was seen and evaluated this morning. She denied SOB, CP, comfortable. Appetite decent. Decent UO. BP well controlled. Review of Systems Review of Systems: ROS was otherwise unremarkable. Physical Exam Constitutional: WD/WN, vitals as above + ill appearing; no acute distress Eyes: + anicteric sclerae Neck: normal visual inspection Respiratory: no respiratory distress Auscultation: lungs clear to auscultation bilaterally Cardiovascular: Rate/Rhythm: regular rate and regular rhythm Heart Sounds: normal S1 and normal S2 Extremities: no edema Musculoskeletal: Extremities: extremities normal to inspection Skin: no rashes Neurologic: no focal motor deficits Psychiatric: Orientation: alert and oriented x 3 Affect: euthymic affect Results & Data ([facility]) Vital Signs (Past 12 Hours) Vital Signs Temp Pulse Resp BP Pulse Ox O2 Del Method 04/29/22 07:34 36.6 C 53 L 17 115/71 96 Room Air 04/29/22 03:02 36.5 C 53 L 18 116/66 91 Room Air 04/28/22 22:53 36.7 C 58 L 18 123/78 95 Room Air PG Care Time/CCT Total # of Minutes Spent Total Time Spent with Patient: Total time spent is greater than 50% in coordination of care (as documented) at patient's floor/unit and/or counseling patient: Coding Level of Care Code 83889 Subseq Hosp Care Lvl 3 Diagnoses Acute kidney injury superimposed on CKD N17.9; N18.9 Hyponatremia E87.1 Metabolic acidosis E87.2 Elevated troponin R77.8
[2022-04-29] MEDS: cephALEXin 250 MG CAP PO SCH (12:04)
[2022-04-29] MEDS: THIAMINE HCL 100 MG TAB PO SCH (12:05)
[2022-04-29] MEDS: SODIUM BICARBONATE 650 MG TAB PO SCH (12:06)
--- NOTE | 2022-04-29 18:13 | Palliative Care Consultation ---
Date of Consultation April 29, 2022 Assessment & Plan (1) Palliative care encounter: I talked with Mrs. Brannon about goals of care. She tells me that she is tired of trying to balance all her medical problems and that she is ready to . She states that she would like to stop all medications and go home with hospice care. "If I want to eat maltese fries, I should be able to eat maltese fries". Her daughter, Maryjane, was present for the conversation and feels that this is Shruthi's decision and that she will support whatever decision she makes. Shruthi expressed interest in talking with Anita Macias and being able to do some things at home. She is adamant that she does not want to return to the hospital. We discussed options of stopping all medications and focusing on comfort and symptom management. However, I discussed concern that she may have rapid functional decline and not be able to do the things that she wants to do. Other option would be to focus on fewer medications which may allow her to have more functional time. She is agreeable to this. Plan will be home with hospice care and she can opt to stop other meds at any point if she wishes. Asked community resource consultant to call Anita Gilberto to see if he would be able to visit her. Discussed with Dr. Sage and case management who will meet with both daughters later this afternoon to arrange hospice. History of Present Illness Reason for Consultation: goals of care Requesting Physician: Dr. Doherty Attending Physician: Solitario Sage MD History of Present Illness 81 yo lady with history of CAD, ischemic cardiomyopathy and EF of 25-30%, rheumatoid arthritis and CKD with nonfunctioning left kidney. She was hospitalized earlier this month with right toe ischemia and right external iliac thrombus. She was readmitted with orthopnea and increased abdominal girth. She was diuresed with IV furosemide but had bump in her creatinine to 3.05 from her baseline of 1.4-1.6. She has had abdominal pain and was found to have gall bladder edema with sludge and numerous stones but is not a surgical candidate. She denies pain or discomfort at this time. Allergies Allergy/AdvReac Type Severity Reaction Status Date / Time gabapentin Allergy Unknown Verified 04/18/22 19:05 Home Medications Medication Instructions Recorded Confirmed Type acetaminophen 325 mg tablet 650 mg PO Q4 PRN Pain 03/19/22 04/27/22 History (Tylenol) amiodarone 200 mg tablet 200 mg PO DAILY 03/19/22 04/27/22 History docusate sodium 100 mg capsule 100 mg PO BID 03/19/22 04/27/22 History ferrous sulfate 325 mg (65 mg 325 mg PO DAILY 03/19/22 04/27/22 History iron) tablet (iron) levothyroxine 100 mcg tablet 100 mcg PO DAILY 03/19/22 04/27/22 History multivitamin 1 tab PO DAILY 03/19/22 04/27/22 History prednisone 5 mg tablet 5 mg PO DAILY 03/19/22 04/27/22 History hydroxyzine HCl 25 mg tablet 25 mg PO HS PRN Anxiety 04/08/22 04/27/22 History metoprolol succinate 25 mg 25 mg PO DAILY 04/08/22 04/27/22 History tablet,extended release 24 hr thiamine HCl (vitamin B1) 100 mg 100 mg PO DAILY 04/08/22 04/27/22 History tablet furosemide 40 mg tablet 40 mg PO DAILY PRN weight gain 04/14/22 04/27/22 History senna-docusate sodium tablet 1 tab PO BID PRN Constipation 04/14/22 04/27/22 History tramadol 50 mg tablet 50 mg PO Q6H PRN Pain #240 tabs 04/14/22 04/27/22 Rx atorvastatin 80 mg tablet 80 mg PO DAILY #90 tabs 04/16/22 04/27/22 Rx apixaban 2.5 mg tablet (Eliquis) 2.5 mg PO BID #60 tabs 04/19/22 04/27/22 Rx clopidogrel 75 mg tablet 75 mg PO QAM #30 tabs 04/22/22 04/27/22 Rx famotidine 20 mg tablet 20 mg PO BID #60 tabs 04/22/22 04/27/22 Rx pantoprazole 40 mg tablet,delayed 40 mg PO BID #60 tabs 04/22/22 04/27/22 Rx release sodium bicarbonate 650 mg tablet 650 mg PO DAILY #30 tabs 04/22/22 04/27/22 Rx spironolactone 25 mg tablet 12.5 mg PO DAILY #30 tabs 04/22/22 04/27/22 Rx sucralfate 100 mg/mL oral 1 g (10 mL) PO ACHS #120 mL 04/23/22 04/27/22 Rx suspension rotigotine 2 mg/24 hour 2 mg transdermal HS 04/27/22 04/27/22 History transdermal 24 hour patch (Neupro) Patient History Medical History Acid reflux Acute encephalopathy Acute hyponatremia Acute PR Acute UTI CAD (coronary artery disease) PR in [place] in 02/2022. 1 stent placed (believe LCx, but not sure). 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 Dehydration, mild DVT prophylaxis Dysuria Elevated troponin Hiatal hernia History of Hodgkin's lymphoma S/P RADIATION/CHEMO (2000) History of pelvic fracture Hyperlipidemia Hypertension Hypothyroidism Ischemic cardiomyopathy Mixed stress and urge urinary incontinence Nausea & vomiting Restless leg syndrome Rheumatoid arthritis ON PLAQUENIL AND CHRONIC PREDNISONE 7.5MG DAILY Sciatica Scoliosis Stage 3b chronic kidney disease Ventricular tachycardia Surgical History H/O foot surgery 2ND RT TOE REMOVED History of bilateral cataract extraction RIGHT CATARACT EXTRACTION WITH IOL= 04/05/18= [facility]ATION AT [facility] History of colonoscopy History of gynecologic surgery ANTERIOR AND POSTERIOR REPAIR - colporrhaphy (for pelvic relaxation) History of removal of cyst HEAD (BENIGN) History of tonsillectomy History of tooth extraction History of total knee replacement RT History of urologic surgery URETEROLYSIS- 04/1995 [facility] [place] S/P coronary artery stent placement S/P ICD (internal cardiac defibrillator) procedure S/P vaginal hysterectomy Family History Mother , age 80 Cardiac disorder Family history of lung cancer Brother Diabetes Family history of lung cancer Family history of diabetes mellitus Daughter Breast cancer Father , age 57 Cardiac disorder Grandmother Diabetes Aunt Ovarian cancer paternal aunt Grandmother (Paternal) Family history of diabetes mellitus Other Cancer Heart disease No family history of adverse response to anesthesia No family history of bleeding disorder Denies family history of Colon cancer Colorectal cancer Social History Smoking Status: Former smoker Tobacco Type: Cigarettes Cigarettes Per Day: QUIT + 30 YEARS AGO; Second Hand Exposure: No; Hx Alcohol Use: Yes Alcohol type: wine Alcohol Intake Frequency Comment: Social about every three months Hx Substance Use: No Preferred Language: Bangladeshi Communication Ability: Effective Visual Impairment: No Limitations Hearing Ability: Use of Hearing Aid Pharmacy Manager Required: No Beliefs That Will Affect Care: None marital status: / Current Living Situation: Rehab Current Living Situation Comment: [facility] 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 [employer] Feels Safe at Home: Yes Childhood Exposure to Second-Hand Smoke: Yes (parent smoked) Dental Care, Regularly: Yes Sunscreen Use: Yes (occasionally) Assistive Devices: Walker Review of Systems Review of Systems: ESAS Pain0/3 Dyspnea 0/3 Nausea 0/3 Drowsiness 0/3 Physical Exam Constitutional: no acute distress ENMT: Mouth: oral mucous membranes not dry Respiratory: normal respiratory effort; no labored breathing Cardiovascular: Rate/Rhythm: regular rate Extremities: no edema Skin: warm and dry Neurologic: Speech / Cognition: normal cognition Results & Data ([facility]) Vital Signs (Past 12 Hours) Vital Signs Temp Pulse Pulse Resp BP Pulse Ox O2 Del Method 04/29/22 17:10 04/29/22 14:38 53 L 04/29/22 11:09 54 L 04/29/22 11:04 Room Air 04/29/22 11:00 Room Air 04/29/22 07:34 97.9 F 53 L 17 115/71 96 Room Air O2 Del Method 04/29/22 17:10 Room Air 04/29/22 14:38 04/29/22 11:09 04/29/22 11:04 04/29/22 11:00 04/29/22 07:34 PG Care Time/CCT Total # of Minutes Spent Total Time Spent with Patient: Total time spent is greater than 50% in coordination of care (as documented) at patient's floor/unit and/or counseling patient: 60 minutes on goals of care, symptom management, hospice, coordination of care Coding Level of Care Code 84478 Initial Inpt Care Lvl 2 Diagnoses Palliative care encounter Z51.5
[2022-04-29] MEDS ORDERED: LORazepam 0.5 MG in SYRINGE 0.25 ML IV PRN (18:17)
[2022-04-29] MEDS ORDERED: MoRPHine SULFATE 2 MG/ML CARP IV PRN (18:17)
[2022-04-29] MEDS ORDERED: haloperidoL 1 MG TAB PO PRN (18:17)
[2022-04-29] MEDS ORDERED: ONDANSETRON 4 MG OD TAB SL PRN (18:17)
[2022-04-29] MEDS ORDERED: ONDANSETRON INJ 2 MG/ML 2 ML VIAL IV PRN (18:17)
[2022-04-29] MEDS ORDERED: MoRPHine SULFATE 5 MG/0.25 ML UDP PO PRN (18:17)
[2022-04-29] MEDS ORDERED: LORazepam 0.5 MG TAB PO PRN (18:17)
--- NOTE | 2022-04-29 18:22 | Hospitalist Progress Note ---
Date of Service April 29, 2022 Assessment & Plan (1) Comfort measures only status: Plan: Discussions were held today with the patient and her family she wishes in her comfort measures only status. Likely will continue to pare down medications as she is to hospice at home (2) Acute on chronic systolic CHF (congestive heart failure): Plan: Shruthi is a 81-year-old female with a past medical history of CAD with RI in [facility] 02/2022 with LA to LCx by report, left nonfunctioning kidney due to retroperitoneal fibrosis, history of Hodgkin's lymphoma s/p radiation/chemo 2000, hyperlipidemia, hypertension, hypothyroidism, ischemic cardiomyopathy, rheumatoid arthritis on Plaquenil/prednisone, CKD presents with volume overload, orthopnea, hypotension and abdominal discomfort Abdominal pain with diffuse gallbladder edema Patient with progressive diffuse edema/fluid overload - Patient with fluid overload on both chest x-ray and diffuse edema on CT Patient denies chest pain. Troponin elevated due to demand ishcemia and not nstemi Updated echo shows severe LV dysfunction but not overall worse than previous echo EF 25-30 Given obvious fluid overload but with 1 nonfunctioning kidney and creatinine elevated from baseline 1.41.7-2.87 nephrology consulted agrees with diuresis No signs of bleeding Patient with underlying chronic gallbladder edema, no significant change and difficult to assess on CT due to diffuse edema. Patient is a poor surgical candidate and has been refused for surgical intervention both at this institution at [facility] in the past, was recommended to have enzymes trended and treated medically and surgery to be avoided unless refractory/emergent CAD, history of PCI to circumflex EF 40-45% History of V. tach, s/p ICD placement Continue Plavix, Eliquis Continue metoprolol Continued on amiodarone history of VT with pacer. This was to be followed as outpatient potentially discontinued in the future Continue statin ARF CKD 3 History of retroperitoneal fibrosis and left kidney atrophy Baseline creatinine approximately 1.4, acutely elevated to 2.8 on admission. Nephro consulted Started on bicarb 650 mg p.o. daily at last admission and with acute HFrEF given diuretics under guidance of nephrology Spironolactone held Hypertension Spironolactone held Embolic disease of the toe Right foot first toe, mobile focal thrombus of right iliac artery prior admission possible dislodgment post femoral access continued on Plavix/Eliquis Hypothyroidism Synthroid 100 mcg daily TSH 04/20 nl Chronic adrenal insufficiency On prednisone 5 mg p.o. daily Stress dose for acute illness CODE: DNR/DNI (3) Acute kidney injury: (4) Chronic hyponatremia: (5) Elevated transaminase level: (6) Hx of Hodgkin's disease: (7) Hyperlipidemia: (8) Hypertension: (9) Rheumatoid arthritis: (10) S/P coronary artery stent placement: (11) S/P ICD (internal cardiac defibrillator) procedure: (12) Stage 3b chronic kidney disease: Admission and Anticipated Discharge Date Admission Date: April 27, 2022 Subjective Patient seen in presence of her daughter she confirms she wishes to pursue comfort care measures were trying to arrange for home hospice. This point time she requests no additional diagnostic studies but wish to keeps her medicines status quo to help her chronic medical conditions until she transitions fully to home hospice. He appears in no significant distress although medications for distress to be offered to her Review of Systems Review of Systems: Mild distress and fatigue no headache, no visual changes no speech or swallowing issues no chest pain, pressure or palpitations Resolved shortness of breath, cough or wheezes no abdominal pain, nausea or vomiting, diarrhea or constipation no dysuria, hematuria or frequency Lateral foot pain no back pain, CVA tenderness or radicular pain no bruising, bleeding or rashes lateral foot cyanosis right greater than left no focal signs of weakness or numbness or altered sensation no complaints of anxiety or depression.. Physical Exam Physical Exam: The patient appeared well nourished and normally developed. Vital signs as documented. Head exam is normocephalic atraumatic Neck is without JVD, thyromegaly, or carotid bruits. Lungs are clear to auscultation, but diminished at the bases Cardiac exam, Rhythm is regular.. No murmurs, rubs or gallops. Abdominal exam reveals normal bowel sounds, soft non tender, no masses Extremities are edematous with bilateral changes of bunions of the first metatarsal phalangeal area the right foot is cyanotic with delayed capillary refill the left is much less so Neurologic exam is alert and oriented, no focal loss of strength or sensation Skin is without bruises or rashes cyanosis with no open areas Psychologically is without concerns for anxiety or depression.. Results & Data Results & Data ([facility]) Vital Signs (Past 12 Hours) Vital Signs Temp Pulse Pulse Resp BP Pulse Ox O2 Del Method 09/22/22 17:10 04/29/22 14:38 53 L 04/29/22 11:09 54 L 04/29/22 11:04 Room Air 04/29/22 11:00 Room Air 04/29/22 07:34 97.9 F 53 L 17 115/71 96 Room Air O2 Del Method 04/29/22 17:10 Room Air 04/29/22 14:38 04/29/22 11:09 04/29/22 11:04 04/29/22 11:00 04/29/22 07:34 PG Care Time/CCT Total # of Minutes Spent Total Time Spent with Patient: Total time spent is greater than 50% in coordination of care (as documented) at patient's floor/unit and/or counseling patient: Coding Level of Care Code 52380 Subseq Hosp Care Lvl 3 Diagnoses Comfort measures only status Z51.5 Acute on chronic systolic CHF (congestive heart failure) I50.23 Acute kidney injury N17.9 Chronic hyponatremia E87.1 Elevated transaminase level R74.01 Hx of Hodgkin's disease Z85.71 Hyperlipidemia E78.5 Hypertension I10 Hypertension type: primary hypertension Rheumatoid arthritis M06.041; M06.042 Rheumatoid arthritis location: hand Rheumatoid factor presence: without rheumatoid factor Laterality: bilateral S/P coronary artery stent placement Z95.5 S/P ICD (internal cardiac defibrillator) procedure Z95.810 Stage 3b chronic kidney disease N18.32 (1) Hypertension Hypertension type: primary hypertension Qualified Code(s): I10 - Essential (primary) hypertension (2) Rheumatoid arthritis Rheumatoid arthritis location: hand Rheumatoid factor presence: without rheumatoid factor Laterality: bilateral Qualified Code(s): M06.041 - Rheumatoid arthritis without rheumatoid factor, right hand; M06.042 - Rheumatoid arthritis without rheumatoid factor, left hand
[2022-04-29] MEDS: ROTIGOTINE 1 MG/24 HR TD SCH (19:19)
[2022-04-30] MEDS: HYDROCORTISONE SOD 50 MG in SYRINGE 0 ML IV SCH ×2 (01:08→11:15)
[2022-04-30] MEDS: LEVOTHYROXINE SODIUM 100 MCG TABLET PO SCH (05:40)
[2022-04-30] MEDS: APIXABAN 2.5 MG TAB PO SCH (11:10)
[2022-04-30] MEDS: AMIODARONE 200 MG TAB PO SCH (11:10)
[2022-04-30] MEDS: DOCUSATE SODIUM 100 MG CAP PO SCH (11:14)
[2022-04-30] MEDS: cephALEXin 250 MG CAP PO SCH (11:14)
[2022-04-30] MEDS: CLOPIDOGREL BISULFATE 75 MG TAB PO SCH (11:14)
[2022-04-30] MEDS: PANTOprazole 40 MG TAB PO SCH (11:15)
[2022-04-30] MEDS: FAMOTIDINE 20 MG TAB PO SCH (11:15)
[2022-04-30] MEDS: FERROUS SULFATE 325 MG TAB PO SCH (11:15)
--- NOTE | 2022-04-30 18:31 | Discharge Summary ---
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 Hemoglobin 11.0, up from prior baseline. Sodium chronically 045645, 129 on admission. Potassium normal. Creatinine is acutely elevated to 2.87 from baseline of approximately 1.4. Patient is clinically volume overloaded. Lactate pending. Patient is with new transaminitis to 178/121, total bilirubin is normal. Alk phos 240. High-sensitivity troponin 50. Patient reports that over the last week after charge from the hospital she has had progressive abdominal swelling/discomfort, weight gain, and progressive weakness. She has been having intermittent right upper quadrant and left upper quadrant abdominal discomfort and increasing orthopnea. She has been sleeping sitting up and due to worsened shortness of breath while laying flat. She reports she has been eating most meals well, occasionally has had some nausea with meals. Has been peeing normally. Denies dysuria. She had some rib pain, denies upper chest/neck/substernal/shoulder pain. Denies palpitations. Denies diaphoresis. She reports she has had some loose bowels. Endorses weight gain. No increased salt load. On spironolactone/Lasix [employer]. No melton/white stools. No pain w/ greasy foods. Medical History: Reviewed Medications: Reviewed Surgical History: Reviewed Allergies: Reviewed Social History: Reviewed Code Status: DNR/DNI Principal Diagnosis Decision to pursue comfort care Acute systolic heart failure with pulmonary edema and respiratory distress Acute kidney injury Discharge Exam The patient appeared stable Vital signs as documented. Lungs are diminished Extremities are edematous and both pedal pulses are normal. Neurologic exam is alert and agreeable to home hospice Discharge Data Allergies Allergy/AdvReac Type Severity Reaction Status Date / Time gabapentin Allergy Unknown Verified 04/18/22 19:05 Consultations 04/27/22 14:51 ED Decision to Admit Stat 04/27/22 18:15 Consult Nephrology Routine 04/29/22 09:52 Consult Palliative Care Routine Ordered Studies 04/27/22 14:02 CT abd pelvis wo con Stat Hospital Course (1) Comfort measures only status: Discussions were held today with the patient and her family she wishes in her comfort measures only status. 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 Troponin elevated due to demand ishcemia and not nstemi Updated echo shows severe LV dysfunction but not overall worse than previous echo EF 25-30 Given obvious fluid overload but with 1 nonfunctioning kidney and creatinine elevated from baseline 1.41.7-2.87 improved with diuresis Patient with underlying chronic gallbladder edema, no significant change and difficult to assess on CT due to diffuse edema. Patient is a poor surgical candidate and has been refused for surgical intervention both at this institution at [facility] [place] [place] CAD, history of PCI to circumflex EF 40-45% History of V. tach, s/p ICD placement Continue Plavix, Eliquis Continue metoprolol Continued on amiodarone history of VT with pacer. This was to be followed as outpatient potentially discontinued in the future Continue statin ARF CKD 3 History of retroperitoneal fibrosis and left kidney atrophy Hypertension Spironolactone held Embolic disease of the toe Right foot first toe, mobile focal thrombus of right iliac artery prior admission possible dislodgment post femoral access Hypothyroidism Synthroid 100 mcg daily TSH 04/20 nl Chronic adrenal insufficiency On prednisone 5 mg p.o. daily Stress dose for acute illness CODE: DNR/DNI (3) Acute kidney injury: (4) Chronic hyponatremia: (5) Elevated transaminase level: (6) Hx of Hodgkin's disease: (7) Hyperlipidemia: (8) Hypertension: (9) Rheumatoid arthritis: (10) S/P coronary artery stent placement: (11) S/P ICD (internal cardiac defibrillator) procedure: (12) Stage 3b chronic kidney disease: Total Time Total Time Spent Total Time Spent (In Minutes): It required greater than 30 minutes to prepare this patient for discharge Discharge Plan Discharge Items Patient Disposition: Hospice - Home Reason For Visit: AOC CHF, ARB Discharge Diagnosis: acute on chronic systolic heart failure acute on chronic kidney disease stage 3 decsion for hospice care Activity: Per Instructions section Activity Comment: no restrictions or expectations Non-emergency contact: Specialist Call non-emergency contact if: you have any medication questions Follow-up/Referrals: Maddison Metzger MD [Primary Care Provider] - Diet: Regular Addtl Attending Provider Instructions: please aim for comfort and discuss any medicine changes with hospice services Pending Studies at Discharge: No Stand-Alone Forms: [facility] Medications and DC Order Prescriptions: New atropine 1 % drops 2 drp PO Q6H Qty: 2 1RF Rx Instructions: administer to back of throat/tongue and swallow this is a hospice med lorazepam 0.5 mg Tablet 0.5 mg PO Q4H PRN (Reason: anxiety) Qty: 20 0RF Rx Instructions: this is a hospice med morphine concentrate 100 mg/5 mL (20 mg/mL) Solution 5 mg PO Q3H PRN (Reason: pain) Qty: 15 0RF Rx Instructions: this is a hospice med ondansetron 4 mg tablet,disintegrating 4 mg PO Q8H PRN (Reason: nausea and vomiting) Qty: 20 0RF Continued metoprolol succinate 25 mg tablet extended release 24 hr 25 mg PO DAILY acetaminophen [Tylenol] 325 mg Tablet 650 mg PO Q4 PRN (Reason: Pain) amiodarone 200 mg tablet 200 mg PO DAILY levothyroxine 100 mcg tablet 100 mcg PO DAILY docusate sodium 100 mg Capsule 100 mg PO BID prednisone 5 mg Tablet 5 mg PO DAILY Eliquis 2.5 mg tablet 2.5 mg PO BID Qty: 60 0RF clopidogrel 75 mg Tablet 75 mg PO QAM Qty: 30 0RF famotidine 20 mg Tablet 20 mg PO BID Qty: 60 0RF pantoprazole 40 mg tablet,delayed release (DR/EC) 40 mg PO BID Qty: 60 0RF Discontinued sucralfate 100 mg/mL suspension 1 g PO ACHS Qty: 120 5RF tramadol 50 mg tablet 50 mg PO Q6H PRN (Reason: Pain) Qty: 240 0RF atorvastatin 80 mg tablet 80 mg PO DAILY Qty: 90 3RF thiamine HCl (vitamin B1) 100 mg tablet 100 mg PO DAILY hydroxyzine HCl 25 mg tablet 25 mg PO HS PRN (Reason: Anxiety) furosemide 40 mg tablet 40 mg PO DAILY PRN (Reason: weight gain) multivitamin Tablet 1 tab PO DAILY ferrous sulfate [iron] 325 mg (65 mg iron) Tablet 325 mg PO DAILY senna-docusate sodium Tablet 1 tab PO BID PRN (Reason: Constipation) sodium bicarbonate 650 mg Tablet 650 mg PO DAILY Qty: 30 0RF spironolactone 25 mg Tablet 12.5 mg PO DAILY Qty: 30 0RF Neupro 2 mg/24 hour patch 24 hour 2 mg transdermal HS Rx Instructions: remove daily Discharge Orders: Discharge Order (Routine); Ordered 04/30/22 Ordered By: Solitario Saunders/Other Patient Handouts: What Is Palliative Care Admission Data Admit Date/Time: 04/27/22 16:48 Attending Provider: Solitario Sage Admit Provider: Ronak Moulton Primary Care Provider: Maddison Metzger Other Providers: Ronak Moulton ; Roverto Coto ; Shruthi Calzada ; [facility] Other Interventions: Discharge Summary Assessment (RN) Last Done: 04/30/22 12:54 Coding Level of Care Code D/C DAY MANAGEMENT >30 MINS Diagnoses Comfort measures only status Z51.5 Acute on chronic systolic CHF (congestive heart failure) I50.23 Acute kidney injury N17.9 Chronic hyponatremia E87.1 Elevated transaminase level R74.01 Hx of Hodgkin's disease Z85.71 Hyperlipidemia E78.5 Hypertension I10 Hypertension type: primary hypertension Rheumatoid arthritis M06.041; M06.042 Rheumatoid arthritis location: hand Rheumatoid factor presence: without rheumatoid factor Laterality: bilateral S/P coronary artery stent placement Z95.5 S/P ICD (internal cardiac defibrillator) procedure Z95.810 Stage 3b chronic kidney disease N18.32
== END 2022-04-30 14:11 | disposition hospice, home (50) | DRG 291 ==
LOC: ED 11:04 → 2W 16:48 → SUATTDRO 16:48 → 2W 17:44

== ENCOUNTER 2023-01-10 16:55 | Inpatient (IN) ==
[2023-01-10] MEDS ORDERED: ONDANSETRON INJ 2 MG/ML 2 ML VIAL IV STA (17:24)
--- NOTE | 2023-01-10 17:24 | ED Triage Note ---
Date of Service January 10, 2023 History of Present Illness This patient was briefly evaluated while in triage. An abbreviated physical exam was performed. This patient is a 82-year-old Female who presents to the ED for evaluation of vomiting 10 episodes since 1400, ate at a [place] restaurant for lunch. friend also not feeling very well mild upper abdominal pain no diarrhea Physical Exam GENERAL: NAD CARDIOVASCULAR: RRR RESPIRATORY: CTA ABDOMEN: BS x 4. mild epigastric TTP Initial orders for labs and / or imaging were placed and patient was placed in the waiting area until a bed is available. Please see further documentation for the full ED course.
[2023-01-10] MEDS ORDERED: SODIUM CHLORIDE 0.9% 500 ML IV SCH (17:30)
[2023-01-10 18:53] LABS: Albumin Globulin Ratio 1.2 (0.9-2); Albumin Level 4.6 gm/dl (3.4-5.0); BUN Creatinine Ratio 25.4 (10-20); Bilirubin,Total 0.7 mg/dl (0.2-1.0); Calcium 10.3 mg/dl (8.6-10.3); Creatinine Clr Calc Pharmacy 23.3 ml/min; Est GFR (African American) 41.7 ml/min; Globulin 3.7 gm/dl (2.5-4.0); Potassium 4.3 mmol/L (3.5-5.1); Total Protein 8.3 gm/dl (6.0-8.3)
[2023-01-10 18:55] LABS: Basophils # (auto) 0.03 K/uL (0-0.2); Basophils % (auto) 0.3 %; Eosinophils # (auto) 0.06 K/uL (0-0.50); Eosinophils % (auto) 0.6 %; Hematocrit (blood only) 43.1 % (37.0-47.0); Hemoglobin 14.1 g/dl (12.0-16.0); Immature Granulocytes # (auto) 0.06 K/uL (0.01-0.20); Immature Granulocytes % (auto) 0.6 %; Lymphocytes # (auto) 2.67 K/uL (1.2-3.4); Lymphocytes % (auto) 28.2 %; Mean Corpuscular Hemoglobin 27.5 pg (25.0-34.0); Mean Corpuscular Hgb Conc 32.7 g/dL (32.0-36.0); Mean Corpuscular Volume 84.2 fL (80.0-100.0); Mean Platelet Volume 8.4 fL (9.4-12.4); Monocytes # (auto) 0.81 K/uL (0.11-0.59); Monocytes % (auto) 8.5 %; Neutrophils # (auto) 5.85 K/uL (1.40-6.50); Neutrophils % (auto) 61.8 %; Platelet Count 298 K/uL (130-400); RDW Coefficient of Variation 15.9 % (11.5-14.5); RDW Standard Deviation 48.1 fL (36.4-46.3); Red Blood Count 5.12 M/uL (4.20-5.40); White Blood Count 9.48 K/ul (4.8-10.8)
[2023-01-10] MEDS ORDERED: OPTIRAY 320 100ml IV ONE (20:07)
--- NOTE | 2023-01-10 21:06 | CT Scan Report ---
Exam(s): CT ABDOMEN + PELVIS With Contrast IV Amt: 81 ml optiray 320 EXAM: CT Abdomen and Pelvis With Intravenous Contrast CLINICAL HISTORY: Reason for exam: abd pain vomittting. TECHNIQUE: Axial computed tomography images of the abdomen and pelvis with intravenous contrast. CTDI is 13.94 mGy and DLP is 547.85 mGy-cm. Automated exposure control was utilized for the study. A dose lowering technique was utilized adhering to the principles of ALARA. CONTRAST: Patient received 81 ml optiray 320 of IV contrast COMPARISON: 04/27/2022 FINDINGS: Lung bases: Unremarkable. No mass. No consolidation. Mediastinum: Hiatal hernia with half the stomach in the chest is unchanged from priors body. ABDOMEN: Liver: Unremarkable. No mass. Gallbladder and bile ducts: Unremarkable. No calcified stones. No ductal dilation. Pancreas: Unremarkable. No mass. No ductal dilation. Spleen: Unremarkable. No splenomegaly. Adrenals: Unremarkable. No mass. Kidneys and ureters: Atrophic and nonfunctioning left kidney. Stomach and bowel: Dilated proximal small bowel loops with formed fecal material. There is a transition zone with edematous mid small bowel within the mid abdomen best seen on coronal images 28-36. PELVIS: Appendix: No findings to suggest acute appendicitis. Bladder: Unremarkable. No mass. Reproductive: Unremarkable as visualized. ABDOMEN and PELVIS: Intraperitoneal space: Within the root of the mesentery, partially calcified soft tissue nodule measuring 2.3 cm craniocaudal is unchanged. No free air. No significant fluid collection. Bones/joints: No acute fracture. No dislocation. Soft tissues: See above. Vasculature: Unremarkable. No abdominal aortic aneurysm. Lymph nodes: Unremarkable. No enlarged lymph nodes. IMPRESSION: Dilated proximal small bowel loops with formed fecal material consistent with a partial small bowel obstruction. Transition zone in the mid abdomen with edematous small bowel. Electronically signed by: Bradley Melissa M.D. 01/10/23 21:05 PM
[2023-01-10] MEDS: SODIUM CHLORIDE 0.9% 1000ML 1,000 ML IV SCH (21:16)
--- NOTE | 2023-01-10 21:49 | Emergency Department Note ---
History of Present Illness General Chief complaint: Dehydration Stated complaint: VOMITING, REF BY DOC, DEHYDRATION, ABD PAIN Time Seen by Provider: 01/10/23 19:27 History of Present Illness Provider Complaint: + nausea, + vomiting and + abdominal pain Onset (ago): hour(s) (6) Description of Vomiting: + bilious; no blood-streaked, no bloody or no coffee grounds Associated Abdominal Pain: Yes Location of pain: + diffuse Maximum Pain Intensity: 5 Current Pain Intensity: 5 Quality: + stabbing, + aching and + sharp Pain Consistency: + constant and + colicky Relieved By: + none Exacerbated By: + eating Context: + possible food poisoning (Patient states her symptoms began after eating [place] food at 1300) and + history of abdominal surgery; no foreign travel, no recent antibiotic use, no alcohol abuse, no anticoagulant use, no NSA ID use, no smoking or no marijuana use Associated symptoms: + malaise; no fever/chills, no dysuria or no shortness of breath Home Medications Medication Instructions Recorded Confirmed Type lorazepam 0.5 mg tablet 0.5 mg PO Q4H PRN anxiety #20 tabs 04/30/22 01/10/23 Rx prednisone 5 mg tablet 7.5 mg PO DAILY 05/06/22 01/10/23 History levothyroxine 100 mcg tablet 100 mcg PO DAILY #90 tabs 10/15/22 01/10/23 Rx acetaminophen 500 mg oral powder 1,000 mg PO Q6H PRN Pain 11/08/22 01/10/23 History packet (Tylenol Extra Strength) pantoprazole 40 mg tablet,delayed 40 mg PO BID #180 tabs 11/10/22 01/10/23 Rx release rotigotine 2 mg/24 hour 2 mg transdermal DAILY 11/10/22 01/10/23 History transdermal 24 hour patch (Neupro) furosemide 20 mg tablet (Lasix) 20 mg PO DAILY PRN weight gain #90 11/30/22 01/10/23 Rx tabs tramadol 50 mg tablet 50 mg PO TID PRN pain #90 tabs 12/20/22 01/10/23 Rx Allergies Allergy/AdvReac Type Severity Reaction Status Date / Time gabapentin AdvReac Intermediate SHAKING, Verified 01/10/23 20:25 JERKING MOVEMENTS Past Med/Surg History Medical History Acid reflux Acute encephalopathy Acute hyponatremia Acute hyponatremia Acute hypoxemic respiratory failure Acute metabolic encephalopathy Acute CT Acute UTI CAD (coronary artery disease) CT in [place] in 02/2022. 1 stent placed (believe LCx, but not sure). 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 Dehydration, mild DVT prophylaxis DVT prophylaxis Dysuria Elevated troponin Hiatal hernia History of Hodgkin's lymphoma S/P RADIATION/CHEMO (2000) History of pelvic fracture Hyperlipidemia Hypertension Hypothyroidism Ischemic cardiomyopathy Mixed stress and urge urinary incontinence Nausea & vomiting On amiodarone therapy Restless leg syndrome Rheumatoid arthritis ON CHRONIC PREDNISONE 7.5MG DAILY Sciatica Scoliosis Stage 3b chronic kidney disease Ventricular tachycardia Surgical History H/O foot surgery 2ND RT TOE REMOVED History of bilateral cataract extraction RIGHT CATARACT EXTRACTION WITH IOL= 04/05/18= MAC SEDATION AT [facility] History of colonoscopy History of gynecologic surgery ANTERIOR AND POSTERIOR REPAIR - colporrhaphy (for pelvic relaxation) History of removal of cyst HEAD (BENIGN) History of tonsillectomy History of tooth extraction History of total knee replacement RT History of urologic [place] [facility] [place] coronary artery stent placement S/P vaginal hysterectomy Status post right knee replacement Family History Mother , age 80 Cardiac disorder Family history of lung cancer Brother Diabetes Family history of lung cancer Family history of diabetes mellitus Daughter Breast cancer Father , age 57 Cardiac disorder Grandmother Diabetes Aunt Ovarian cancer paternal aunt Grandmother (Paternal) Family history of diabetes mellitus Other Cancer Heart disease No family history of adverse response to anesthesia No family history of bleeding disorder Denies family history of Colon cancer Colorectal cancer Social History Smoking Status: Never smoker Tobacco Type: Cigarettes Cigarettes Per Day: QUIT + 30 YEARS AGO; Second Hand Exposure: No; Do You Dip or Chew Tobacco: No; Hx Alcohol Use: Yes Alcohol type: wine Alcohol Intake Frequency Comment: Social about every three months Hx Substance Use: No Preferred Language: Greenlandic Communication Ability: Effective Communication Ability Comment: Non-verbal, confused at this time. 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 [employer] Feels Safe at Home: Yes Childhood Exposure to Second-Hand Smoke: Yes (parent smoked) Diet: regular Dental Care, Regularly: Yes Sunscreen Use: Yes (occasionally) Assistive Devices: Walker Physical Exam Vital Signs: Vital Signs - 24 hr 01/10/23 17:22 Temperature 36.5 C Temperature Source Temporal Artery Sc an Pulse Rate 89 Pulse Rhythm Regular Respiratory Rate 20 Respiratory Effort / Characteristics Non-Labored Sponta neous Respiratory Depth Normal Blood Pressure 138/89 Blood Pressure Janet n 105 Pulse Oximetry 97 Oxygen Delivery Me thod Room Air Sepsis Recent Feve r Within 48 Hours No Sepsis New/Unexpla ined Change in Men lee Status No Sepsis Action Take n by Nursing No Action Required Physical Exam: Physical Exam HENT: Exam performed. - Head: Normocephalic and atraumatic. EYES: Conjunctivae and EOM are normal. Right eye exhibits no discharge. Left eye exhibits no discharge. No scleral icterus. NECK: Normal range of motion. Neck supple. No JVD present. CV: Normal rate, regular rhythm, normal heart sounds and intact distal pulses. There is no peripheral edema. Palpable radial pulses bue. PULM/CHEST: Effort normal and breath sounds normal. No respiratory distress. No stridor. no wheezes. no rales. ABD: The abdomen is soft. Diffuse pain on palpation of the abdomen. NEURO: Motor and sensation grossly intact. SKIN: Skin is warm and dry. He is not diaphoretic. PSYCH: normal mood and affect. Behavior is normal. Judgment and thought content normal. Course Course 1926: The patient was evaluated in room C4. A complete history and physical exam was performed Cardiac monitoring: An order was placed for continuous cardiac monitoring. The monitor shows a rate of 90 with sinus rhythm interpreted by me 2115: Vital signs stable. Within normal limits. Imaging shows partial small bowel obstruction. Patient [facility] be [facility] team Dr. Virgen team will be notified. Administered Medications Sodium Chloride (Nss 1000ml) 1,000 mls @ 80 mls/hr IV .[id number] JOSE LUIS Stop: 02/09/23 21:14 Last Admin: 01/10/23 21:16 Dose: 80 mls/hr Documented By: MEG Discontinued Medications Sodium Chloride (Nss) 500 mls @ 999 mls/hr IV .Q31M JOSE LUIS Stop: 01/10/23 18:00 Last Infusion: 01/10/23 19:29 Dose: 0 mls/hr Documented By: Admin: 01/10/23 18:17 Dose: 999 mls/hr Documented By: SHAILA Ioversol (Optiray 320 100ml) 81 ml IV ONCE ONE Stop: 01/10/23 20:08 Last Admin: 01/10/23 20:09 Dose: 81 ml Documented By: ROS Ondansetron HCl (Ondansetron Inj 2 Mg/Ml 2 Ml Vial) 4 mg IV NOW STA Stop: 01/10/23 17:25 Last Admin: 01/10/23 18:17 Dose: 4 mg Documented By: SHAILA Medical Decision Making Laboratory Data Attestation: I reviewed the patient's lab results. 01/10/23 18:11 01/10/23 18:11 Lab Results 01/10/23 01/10/23 Range/Units 18:11 18:11 WBC 9.48 (4.8-10.8) K/ul RBC 5.12 (4.20-5.40) M/uL Hgb 14.1 (12.0-16.0) g/dl Hct 43.1 (37.0-47.0) % MCV 84.2 (80.0-100.0) fL MCH 27.5 (25.0-34.0) pg MCHC 32.7 (32.0-36.0) g/dL RDW Std Deviation 48.1 H (36.4-46.3) fL RDW Coeff of Sachin 15.9 H (11.5-14.5) % Plt Count 298 (130-400) K/uL MPV 8.4 L (9.4-12.4) fL Immature Gran % (Auto) 0.6 % Neut % (Auto) 61.8 % Lymph % (Auto) 28.2 % [place] % (Auto) 8.5 % Eos % (Auto) 0.6 % Baso % (Auto) 0.3 % Neut # (Auto) 5.85 (1.40-6.50) K/uL Lymph # (Auto) 2.67 (1.2-3.4) K/uL [place] # (Auto) 0.81 H (0.11-0.59) K/uL Eos # (Auto) 0.06 (0-0.50) K/uL Baso # (Auto) 0.03 (0-0.2) K/uL Immature Gran # (Auto) 0.06 (0.01-0.20) K/uL Sodium 133 L (136-145) mmol/L Potassium 4.3 (3.5-5.1) mmol/L Chloride 99 (98-107) mmol/L Carbon Dioxide 25 (21-32) mmol/L Anion Gap 9 (3-11) BUN 35 H (6-23) mg/dl Creatinine 1.38 H (0.6-1.2) mg/dl Est Cr Clr Drug Dosing 23.3 ml/min Est GFR ( Amer) 41.7 ml/min Est GFR (Non-Af Amer) 36.0 ml/min BUN/Creatinine Ratio 25.4 H (10-20) Glucose 100 H (70-99(Fasting)) mg/dl Calcium 10.3 (8.6-10.3) mg/dl Total Bilirubin 0.7 (0.2-1.0) mg/dl AST 23 (13-39) U/L ALT 11 (7-52) U/L Alkaline Phosphatase 48 (34-104) U/L Total Protein 8.3 (6.0-8.3) gm/dl Albumin 4.6 (3.4-5.0) gm/dl Globulin 3.7 (2.5-4.0) gm/dl Albumin/Globulin Ratio 1.2 (0.9-2) Lipase 15 (11-82) U/L Imaging Data Radiologist's Impression: Abdomen/Pelvis CT 01/10/23 19:27 Exam(s): CT ABDOMEN + PELVIS With Contrast IV Amt: 81 ml optiray 320 EXAM: CT Abdomen and Pelvis With Intravenous Contrast CLINICAL HISTORY: Reason for exam: abd pain vomittting. TECHNIQUE: Axial computed tomography images of the abdomen and pelvis with intravenous contrast. CTDI is 13.94 mGy and DLP is 547.85 mGy-cm. Automated exposure control was utilized for the study. A dose lowering technique was utilized adhering to the principles of ALARA. CONTRAST: Patient received 81 ml optiray 320 of IV contrast COMPARISON: 04/27/2022 FINDINGS: Lung bases: Unremarkable. No mass. No consolidation. Mediastinum: Hiatal hernia with half the stomach in the chest is unchanged from priors body. ABDOMEN: Liver: Unremarkable. No mass. Gallbladder and bile ducts: Unremarkable. No calcified stones. No ductal dilation. Pancreas: Unremarkable. No mass. No ductal dilation. Spleen: Unremarkable. No splenomegaly. Adrenals: Unremarkable. No mass. Kidneys and ureters: Atrophic and nonfunctioning left kidney. Stomach and bowel: Dilated proximal small bowel loops with formed fecal material. There is a transition zone with edematous mid small bowel within the mid abdomen best seen on coronal images 28-36. PELVIS: Appendix: No findings to suggest acute appendicitis. Bladder: Unremarkable. No mass. Reproductive: Unremarkable as visualized. ABDOMEN and PELVIS: Intraperitoneal space: Within the root of the mesentery, partially calcified soft tissue nodule measuring 2.3 cm craniocaudal is unchanged. No free air. No significant fluid collection. Bones/joints: No acute fracture. No dislocation. Soft tissues: See above. Vasculature: Unremarkable. No abdominal aortic aneurysm. Lymph nodes: Unremarkable. No enlarged lymph nodes. IMPRESSION: Dilated proximal small bowel loops with formed fecal material consistent with a partial small bowel obstruction. Transition zone in the mid abdomen with edematous small bowel. Electronically signed by: Bradley Melissa M.D. 01/10/23 21:05 PM [facility] Narrative 1927: The patient was evaluated in room C4. A complete history and physical exam was performed Cardiac monitoring: An order was placed for continuous cardiac monitoring. The monitor shows a rate of 90 with sinus rhythm interpreted by me 2115: Vital signs stable. Within normal limits. Imaging shows partial small bowel obstruction. Patient will be admitted to the [facility] Hospitalist team Dr. Virgen team will be notified. Impression & Plan Partial small bowel obstruction Discharge Plan Visit Data Chief Complaint: Dehydration Stated Complaint: VOMITING, REF BY DOC, DEHYDRATION, ABD PAIN ED Provider: Nahun Soler Discharge Problem: Partial small bowel obstruction Patient Disposition: Admitted As Inpatient Forms Stand Alone Forms: My [facility] Prescriptions Prescriptions: No Action levothyroxine 100 mcg tablet 100 mcg PO DAILY Qty: 90 1RF Neupro 2 mg/24 hour patch 24 hour 2 mg transdermal DAILY pantoprazole 40 mg tablet,delayed release (DR/EC) 40 mg PO BID Qty: 180 1RF tramadol 50 mg tablet 50 mg PO TID PRN (Reason: pain) Qty: 90 0RF Rx Instructions: Transition from morphine. Supervising physician Maddison Metzger MD [facility] [id number] Tylenol Extra Strength 500 mg powder in packet 1,000 mg PO Q6H PRN (Reason: Pain) furosemide [Lasix] 20 mg tablet 20 mg PO DAILY PRN (Reason: weight gain) Qty: 90 2RF prednisone 5 mg tablet 7.5 mg PO DAILY lorazepam 0.5 mg Tablet 0.5 mg PO Q4H PRN (Reason: anxiety) Qty: 20 0RF Rx Instructions: this is a hospice med Referrals Referrals: Maddison Metzger MD [Primary Care Provider] -
--- NOTE | 2023-01-10 22:13 | History & Physical Report ---
Date of Service January 10, 2023 Assessment & Plan (1) Partial small bowel obstruction: (2) Small bowel edema: (3) ICD (implantable cardioverter-defibrillator), single, in situ: (4) Chronic kidney disease, stage III (moderate): (5) Adrenal insufficiency: (6) Ischemic cardiomyopathy: (7) CAD (coronary artery disease): (8) Restless leg syndrome: (9) Rheumatoid arthritis: (10) Hypertension: Plan Partial small bowel obstruction/small bowel edema- Symptoms began within 2 hours of eating [place] food, which is likely to suggest either a severe food intolerance or toxin induced food poisoning NPO NSS at 80 mils per hour Zofran 4 mg IV every 6 hours as needed not able to be used, due to first dose in ED causing severe aggravation of her restless legs Pantoprazole 40 mg IV daily NG tube was attempted to be placed in the ED due to continued patient vomiting while in ED, level, was unsuccessful, and may be tried later General surgery saw patient in ED and will be consulted Restless leg syndrome- This is the symptom the patient is most concerned about, and her daughter will bring in her own Neupro patch Patient reports that several medications, including Zofran, because significant aggravation of her restless leg syndrome Anxiety- Lorazepam 0.5 mg IV every 8 hours as needed Hypothyroidism- Hold levothyroxine while n.p.o. Rheumatoid arthritis/history of adrenal insufficiency- Holding prednisone 7.5 mg p.o. daily Hold on stress dose steroids, due to GI disturbance, however, would have a low threshold for adding hydrocortisone IV if adrenal insufficiency develops GERD- Changing pantoprazole from p.o. to IV as noted above History of Present Illness Chief Complaint: The patient presents to the emergency department with a cute onset of central abdominal pain with intractable nausea and vomiting throughout the day. Primary Care Provider: Maddison Metzger MD The patient is an 82-year-old female with a past medical history including TMJ, mitral regurgitation, ventricular arrhythmia, ICD placement has been deactivated, QT prolongation, AL last year, adrenal insufficiency, arterial insufficiency of lower extremity, hyperlipidemia, ischemic cardiomyopathy, CAD, CKD stage III, RLS, hyperlipidemia, hypertension, and rheumatoid arthritis. The patient reports that she is going with a friend to eat [place] food around 12:00 today, and by 2:00 had developed the acute symptoms of abdominal pain, intractable nausea and vomiting which she reports was at least 15 times today. While in the ED she did vomit a significant volume of green bilious material. CT scan of abdomen and pelvis showed a partial small bowel obstruction with transition zone in the mid abdomen region, associated with edematous small bowel. The patient did not have any episodes of diarrhea. An NG tube was attempted to be placed in ED, but was unsuccessful. Allergies Allergy/AdvReac Type Severity Reaction Status Date / Time gabapentin AdvReac Intermediate SHAKING, Verified 01/10/23 20:25 JERKING MOVEMENTS Home Medications Medication Instructions Recorded Confirmed Type lorazepam 0.5 mg tablet 0.5 mg PO Q4H PRN anxiety #20 tabs 04/30/22 01/10/23 Rx prednisone 5 mg tablet 7.5 mg PO DAILY 05/06/22 01/10/23 History levothyroxine 100 mcg tablet 100 mcg PO DAILY #90 tabs 10/15/22 01/10/23 Rx acetaminophen 500 mg oral powder 1,000 mg PO Q6H PRN Pain 11/08/22 01/10/23 History packet (Tylenol Extra Strength) pantoprazole 40 mg tablet,delayed 40 mg PO BID #180 tabs 11/10/22 01/10/23 Rx release rotigotine 2 mg/24 hour 2 mg transdermal DAILY 11/10/22 01/10/23 History transdermal 24 hour patch (Neupro) furosemide 20 mg tablet (Lasix) 20 mg PO DAILY PRN weight gain #90 11/30/22 01/10/23 Rx tabs tramadol 50 mg tablet 50 mg PO TID PRN pain #90 tabs 12/20/22 01/10/23 Rx Past Med/Surg History Medical History Acid reflux Acute encephalopathy Acute hyponatremia Acute hyponatremia Acute hypoxemic respiratory failure Acute metabolic encephalopathy Acute AL Acute UTI CAD (coronary artery disease) AL in [place] in 02/2022. 1 stent placed (believe LCx, but not sure). 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 Dehydration, mild DVT prophylaxis DVT prophylaxis Dysuria Elevated troponin Hiatal hernia History of Hodgkin's lymphoma S/P RADIATION/CHEMO (2000) History of pelvic fracture Hyperlipidemia Hypertension Hypothyroidism Ischemic cardiomyopathy Mixed stress and urge urinary incontinence Nausea & vomiting On amiodarone therapy Restless leg syndrome Rheumatoid arthritis ON CHRONIC PREDNISONE 7.5MG DAILY Sciatica Scoliosis Stage 3b chronic kidney disease Ventricular tachycardia Surgical History H/O foot surgery 2ND RT TOE REMOVED History of bilateral cataract extraction RIGHT CATARACT EXTRACTION WITH IOL= 04/05/18= MAC SEDATION AT [facility] History of colonoscopy History of gynecologic surgery ANTERIOR AND POSTERIOR REPAIR - colporrhaphy (for pelvic relaxation) History of removal of cyst HEAD (BENIGN) History of tonsillectomy History of tooth extraction History of total knee replacement RT History of urologic surgery URETEROLYSIS- 04/1995 [facility] S/P coronary artery stent placement S/P vaginal hysterectomy Status post right knee replacement Family History Mother , age 80 Cardiac disorder Family history of lung cancer Brother Diabetes Family history of lung cancer Family history of diabetes mellitus Daughter Breast cancer Father , age 57 Cardiac disorder Grandmother Diabetes Aunt Ovarian cancer paternal aunt Grandmother (Paternal) Family history of diabetes mellitus Other Cancer Heart disease No family history of adverse response to anesthesia No family history of bleeding disorder Denies family history of Colon cancer Colorectal cancer Social History Smoking Status: Former smoker Tobacco Type: Cigarettes Cigarettes Per Day: QUIT + 30 YEARS AGO; Second Hand Exposure: No; Do You Dip or Chew Tobacco: No; Hx Alcohol Use: Yes Alcohol type: wine Alcohol Intake Frequency Comment: Social about every three months Hx Substance Use: No Preferred Language: Wolof Communication Ability: Effective Communication Ability Comment: Non-verbal, confused at this time. 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 [employer] Other Information That Helps Us Care for You: No Feels Safe at Home: Yes Safety Concerns: Feels Safe At This Time Childhood Exposure to Second-Hand Smoke: Yes (parent smoked) Diet: regular Dental Care, Regularly: Yes Sunscreen Use: Yes (occasionally) Assistive Devices: None Review of Systems Review of Systems: The patient denies chest pain, palpitations, shortness of breath, dyspnea on exertion, cough, lower extremity swelling, sore throat, fevers, chills, sweats, diarrhea, blood in urine or stool, dysuria, urinary frequency or urgency, lightheadedness, dizziness, headache, memory loss, loss of consciousness, rash, abnormal bruising or bleeding, imbalance, focal or generalized weakness, numbness or tingling in arms or legs, generalized arthralgias or myalgias, back or neck pain, or night sweats. The review of systems is otherwise negative other than for that already noted above, and at least 10 systems have been reviewed. Physical Exam Physical Exam: The patient is awake, alert and oriented 3, well developed and well nourished, normocephalic and atraumatic, lying in bed and in no acute distress. HEENT--PERRL, EOMI, mucous membranes and oropharynx dry. Neck--supple. No JVD. No bruits. Thyroid normal, trachea midline, no adenopathy. Heart--normal S1 and S2. No murmurs, rubs or gallops. Lungs--clear bilaterally, no respiratory distress, no accessory muscle use. Abdomen--decreased bowel sounds, soft. Generalized mild tenderness. Nondistended Extremities--no cyanosis or clubbing. No edema Dermatologic--normal skin turgor, normal color, no abnormal lymph nodes, no rash. Neurologic--cranial nerves II through XII grossly intact. Rheumatologic--normal range of motion. Psychiatric--normal affect. Results & Data Results & Data Vital Signs (Past 12 Hours) Vital Signs Temp Pulse Resp BP Pulse Ox O2 Del Method 01/10/23 17:22 36.5 C 89 20 138/89 97 Room Air Laboratory Results Laboratory Results WBC 9.48 K/ul (4.8-10.8) 01/10/23 18:11 RBC 5.12 M/uL (4.20-5.40) 01/10/23 18:11 Hgb 14.1 g/dl (12.0-16.0) 01/10/23 18:11 Hct 43.1 % (37.0-47.0) 01/10/23 18:11 MCV 84.2 fL (80.0-100.0) 01/10/23 18:11 MCH 27.5 pg (25.0-34.0) 01/10/23 18:11 MCHC 32.7 g/dL (32.0-36.0) 01/10/23 18:11 RDW Std Deviation 48.1 fL (36.4-46.3) H 01/10/23 18:11 RDW Coeff of Sachin 15.9 % (11.5-14.5) H 01/10/23 18:11 Plt Count 298 K/uL (130-400) 01/10/23 18:11 MPV 8.4 fL (9.4-12.4) L 01/10/23 18:11 Immature Gran % (Auto) 0.6 % 01/10/23 18:11 Neut % (Auto) 61.8 % 01/10/23 18:11 Lymph % (Auto) 28.2 % 01/10/23 18:11 [place] % (Auto) 8.5 % 01/10/23 18:11 Eos % (Auto) 0.6 % 01/10/23 18:11 Baso % (Auto) 0.3 % 01/10/23 18:11 Neut # (Auto) 5.85 K/uL (1.40-6.50) 01/10/23 18:11 Lymph # (Auto) 2.67 K/uL (1.2-3.4) 01/10/23 18:11 [place] # (Auto) 0.81 K/uL (0.11-0.59) H 01/10/23 18:11 Eos # (Auto) 0.06 K/uL (0-0.50) 01/10/23 18:11 Baso # (Auto) 0.03 K/uL (0-0.2) 01/10/23 18:11 Immature Gran # (Auto) 0.06 K/uL (0.01-0.20) 01/10/23 18:11 Sodium 133 mmol/L (136-145) L 01/10/23 18:11 Potassium 4.3 mmol/L (3.5-5.1) 01/10/23 18:11 Chloride 99 mmol/L (98-107) 01/10/23 18:11 Carbon Dioxide 25 mmol/L (21-32) 01/10/23 18:11 Anion Gap 9 (3-11) 01/10/23 18:11 BUN 35 mg/dl (6-23) H 01/10/23 18:11 Creatinine 1.38 mg/dl (0.6-1.2) H 01/10/23 18:11 Est Cr Clr Drug Dosing 23.3 ml/min 01/10/23 18:11 Est GFR ( Amer) 41.7 ml/min 01/10/23 18:11 Est GFR (Non-Af Amer) 36.0 ml/min 01/10/23 18:11 BUN/Creatinine Ratio 25.4 (10-20) H 01/10/23 18:11 Glucose 100 mg/dl (70-99(Fasting)) H 01/10/23 18:11 Calcium 10.3 mg/dl (8.6-10.3) 01/10/23 18:11 Total Bilirubin 0.7 mg/dl (0.2-1.0) 01/10/23 18:11 AST 23 U/L (13-39) 01/10/23 18:11 ALT 11 U/L (7-52) 01/10/23 18:11 Alkaline Phosphatase 48 U/L (34-104) 01/10/23 18:11 Total Protein 8.3 gm/dl (6.0-8.3) 01/10/23 18:11 Albumin 4.6 gm/dl (3.4-5.0) 01/10/23 18:11 Globulin 3.7 gm/dl (2.5-4.0) 01/10/23 18:11 Albumin/Globulin Ratio 1.2 (0.9-2) 01/10/23 18:11 Lipase 15 U/L (11-82) 01/10/23 18:11 SARS-CoV-2, RNA, NAAT NEGATIVE (NEGATIVE) 01/10/23 18:12 Impressions Abdomen/Pelvis CT 01/10/23 19:27 Exam(s): CT ABDOMEN + PELVIS With Contrast IV Amt: 81 ml optiray 320 EXAM: CT Abdomen and Pelvis With Intravenous Contrast CLINICAL HISTORY: Reason for exam: abd pain vomittting. TECHNIQUE: Axial computed tomography images of the abdomen and pelvis with intravenous contrast. CTDI is 13.94 mGy and DLP is 547.85 mGy-cm. Automated exposure control was utilized for the study. A dose lowering technique was utilized adhering to the principles of ALARA. CONTRAST: Patient received 81 ml optiray 320 of IV contrast COMPARISON: 04/27/2022 FINDINGS: Lung bases: Unremarkable. No mass. No consolidation. Mediastinum: Hiatal hernia with half the stomach in the chest is unchanged from priors body. ABDOMEN: Liver: Unremarkable. No mass. Gallbladder and bile ducts: Unremarkable. No calcified stones. No ductal dilation. Pancreas: Unremarkable. No mass. No ductal dilation. Spleen: Unremarkable. No splenomegaly. Adrenals: Unremarkable. No mass. Kidneys and ureters: Atrophic and nonfunctioning left kidney. Stomach and bowel: Dilated proximal small bowel loops with formed fecal material. There is a transition zone with edematous mid small bowel within the mid abdomen best seen on coronal images 28-36. PELVIS: Appendix: No findings to suggest acute appendicitis. Bladder: Unremarkable. No mass. Reproductive: Unremarkable as visualized. ABDOMEN and PELVIS: Intraperitoneal space: Within the root of the mesentery, partially calcified soft tissue nodule measuring 2.3 cm craniocaudal is unchanged. No free air. No significant fluid collection. Bones/joints: No acute fracture. No dislocation. Soft tissues: See above. Vasculature: Unremarkable. No abdominal aortic aneurysm. Lymph nodes: Unremarkable. No enlarged lymph nodes. IMPRESSION: Dilated proximal small bowel loops with formed fecal material consistent with a partial small bowel obstruction. Transition zone in the mid abdomen with edematous small bowel. Electronically signed by: Bradley Melissa M.D. 01/10/23 21:05 PM Code Status & VTE Plan VTE Prophylaxis Plan VTE Prophylaxis will be ordered: Yes PG Care Time/CCT Total # of Minutes Spent Total Time Spent with Patient: Total time spent is greater than 50% in coordination of care (as documented) at patient's floor/unit and/or counseling patient: Coding Level of Care Code 29246 INT INP/OBS CARE 3/75MIN Diagnoses Partial small bowel obstruction K56.600 Small bowel edema K63.89 ICD (implantable cardioverter-defibrillator), single, in situ Z95.810 Chronic kidney disease, stage III (moderate) N18.30 Adrenal insufficiency E27.40 Ischemic cardiomyopathy I25.5 CAD (coronary artery disease) I25.10 Coronary Disease-Associated Artery/Lesion type: [place] artery [place] vs. transplanted heart: [place] heart Associated angina: without angina Restless leg syndrome G25.81 Rheumatoid arthritis M06.041; M06.042 Rheumatoid arthritis location: hand Rheumatoid factor presence: without rheumatoid factor Laterality: bilateral Hypertension I10 Hypertension type: primary hypertension (7) CAD (coronary artery disease) Coronary Disease-Associated Artery/Lesion type: [place] artery [place] vs. transplanted heart: [place] heart Associated angina: without angina Qualified Code(s): I25.10 - Atherosclerotic heart disease of [place] coronary artery without angina pectoris (9) Rheumatoid arthritis Rheumatoid arthritis location: hand Rheumatoid factor presence: without rheumatoid factor Laterality: bilateral Qualified Code(s): M06.041 - Rheumatoid arthritis without rheumatoid factor, right hand; M06.042 - Rheumatoid arthritis without rheumatoid factor, left hand (10) Hypertension Hypertension type: primary hypertension Qualified Code(s): I10 - Essential (primary) hypertension
--- NOTE | 2023-01-10 22:20 | Surgery Consultation ---
This case was discussed with the surgical PA. I agree with the plan. Date of Consultation January 10, 2023 Assessment & Plan (1) Partial small bowel obstruction: I discussed with the treating emergency room physician and he is having the patient mid on the hospitalist service. I did discuss with the hospitalist service. We recommend proceeding as follows: Implement n.p.o. status Provide IV fluid for hydration Initially the patient requested that we refrain on placing an NG tube but she had a repeated bout of a large emesis just prior to arrival into the room and she is therefore now agreeable to placing an NG tube. This has been ordered and we will place this to low continuous suction. I did discuss with the patient that once she has improvement of her symptoms, return of bowel function, improvement of her abdominal exam we will consider removing the NG tube with slow advancement of diet beginning with clear liquids thereafter. At the present time the patient does not have leukocytosis or acute kidney injury. She is normotensive without tachycardia or fever and therefore I feel conservative management of her small bowel obstruction is prudent at this time. I did discuss with the patient we will continue monitor her clinical progress with further recommendations to follow. I did discuss with the patient that sometimes small bowel obstructions fail to resolve with conservative measures and surgical intervention is required but we will try to avoid this if possible Provide analgesics as needed Provide antiemetics as needed Additional recommendations be forthcoming based on her clinical course as unfolds While in the emergency department multiple attempts were made by RNs to place NG tube without success. Patient requested that they hold off on placing an NG tube for the present time. The patient did get transferred up to the floor in room 308. The floor nurses were able to successfully place an NG tube and obtained a large amount of bilious output. On KUB the NG tube does appear to be coiled in the stomach. I further reviewed the patient's CAT scan it does appear as though the patient has a hiatal hernia and I suspect that the NG tube is coiled in this portion of her stomach. As she continues to have bilious output would recommend just leaving the tube in place for the present time. I did revisit with the patient while she was up on the floor and her abdomen remains soft and appears somewhat less tender. The patient has not had any further emesis. We will continue to monitor clinically with further recommendations to follow. History of Present Illness Reason for Consultation: Partial small bowel obstruction History of Present Illness This is an 82-year-old female who lives independently at home. She says she was in her usual state of health and went out for [place] food earlier today. Few hours after eating at approximately 2:00 PM the patient had sudden onset of nausea and vomiting. She also noted some generalized abdominal pain without radiation or palliative or provocative factors. She denies any fevers, shakes, or chills patient notes that since this began she has had approximately 15 bouts of emesis with the most recent one being in the emergency department just prior to my visit with her. The patient notes that she has had 1 major abdominal surgery as she has had retroperitoneal fibrosis requiring ureterolysis. This was performed through a midline abdominal incision. Patient also notes that she has a history of Hodgkin's lymphoma for which she had chemotherapy and radiation but specifically notes that she did not have any radiation to her abdomen. Patient notes that since her abdominal surgery she has had history of 1 small bowel obstruction. She says that this was treated successfully in a conservative manner but she did require an NG tube. Since arrival to the emergency department patient has had labs and imaging which I independently reviewed. Labs include a CBC her white blood cell count, hemoglobin, hematocrit, platelet count were normal. Chemistry profile showed sodium is 133 with a normal potassium. BUN was elevated at 35 and creatinine had a slight elevation at 1.3. Review of records show this level of creatinine is near the patient's baseline. There is no elevation of the patient's LFTs or lipase. A COVID test is negative. A CT scan of the abdomen pelvis showed the patient had some dilated proximal small bowel loops with some formed fecal material which is felt to be consistent with a partial small bowel obstruction. The transition zone was noted in the mid abdomen with some edematous small bowel. There did not appear to be any intraperitoneal free air on this study. At the time of my interview the patient was in no distress and appeared to be resting comfortably in bed. Allergies Allergy/AdvReac Type Severity Reaction Status Date / Time gabapentin AdvReac Intermediate SHAKING, Verified 01/10/23 20:25 JERKING MOVEMENTS Home Medications Medication Instructions Recorded Confirmed Type lorazepam 0.5 mg tablet 0.5 mg PO Q4H PRN anxiety #20 tabs 04/30/22 01/10/23 Rx prednisone 5 mg tablet 7.5 mg PO DAILY 05/06/22 01/10/23 History levothyroxine 100 mcg tablet 100 mcg PO DAILY #90 tabs 10/15/22 01/10/23 Rx acetaminophen 500 mg oral powder 1,000 mg PO Q6H PRN Pain 11/08/22 01/10/23 History packet (Tylenol Extra Strength) pantoprazole 40 mg tablet,delayed 40 mg PO BID #180 tabs 11/10/22 01/10/23 Rx release rotigotine 2 mg/24 hour 2 mg transdermal DAILY 11/10/22 01/10/23 History transdermal 24 hour patch (Neupro) furosemide 20 mg tablet (Lasix) 20 mg PO DAILY PRN weight gain #90 11/30/22 01/10/23 Rx tabs tramadol 50 mg tablet 50 mg PO TID PRN pain #90 tabs 12/20/22 01/10/23 Rx Patient History Medical History Acid reflux Acute encephalopathy Acute hyponatremia Acute hyponatremia Acute hypoxemic respiratory failure Acute metabolic encephalopathy Acute NE Acute UTI CAD (coronary artery disease) NE in [place] in 02/2022. 1 stent placed (believe LCx, but not sure). 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 Dehydration, mild DVT prophylaxis DVT prophylaxis Dysuria Elevated troponin Hiatal hernia History of Hodgkin's lymphoma S/P RADIATION/CHEMO (2000) History of pelvic fracture Hyperlipidemia Hypertension Hypothyroidism Ischemic cardiomyopathy Mixed stress and urge urinary incontinence Nausea & vomiting On amiodarone therapy Restless leg syndrome Rheumatoid arthritis ON CHRONIC PREDNISONE 7.5MG DAILY Sciatica Scoliosis Stage 3b chronic kidney disease Ventricular tachycardia Surgical History H/O foot surgery 2ND RT TOE REMOVED History of bilateral cataract extraction RIGHT CATARACT EXTRACTION WITH IOL= 04/05/18= MAC SEDATION AT [facility] History of colonoscopy History of gynecologic surgery ANTERIOR AND POSTERIOR REPAIR - colporrhaphy (for pelvic relaxation) History of removal of cyst HEAD (BENIGN) History of tonsillectomy History of tooth extraction History of total knee replacement RT History of urologic surgery URETEROLYSIS- 04/1995 [facility] [place] S/P coronary artery stent placement S/P vaginal hysterectomy Status post right knee replacement Family History Mother , age 80 Cardiac disorder Family history of lung cancer Brother Diabetes Family history of lung cancer Family history of diabetes mellitus Daughter Breast cancer Father , age 57 Cardiac disorder Grandmother Diabetes Aunt Ovarian cancer paternal aunt Grandmother (Paternal) Family history of diabetes mellitus Other Cancer Heart disease No family history of adverse response to anesthesia No family history of bleeding disorder Denies family history of Colon cancer Colorectal cancer Social History Smoking Status: Former smoker Tobacco Type: Cigarettes Cigarettes Per Day: QUIT + 30 YEARS AGO; Second Hand Exposure: No; Do You Dip or Chew Tobacco: No; Hx Alcohol Use: Yes Alcohol type: wine Alcohol Intake Frequency Comment: Social about every three months Hx Substance Use: No Preferred Language: Bhut[place] Communication Ability: Effective Communication Ability Comment: Non-verbal, confused at this time. 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 [employer] Other Information That Helps Us Care for You: No Feels Safe at Home: Yes Safety Concerns: Feels Safe At This Time Childhood Exposure to Second-Hand Smoke: Yes (parent smoked) Diet: regular Dental Care, Regularly: Yes Sunscreen Use: Yes (occasionally) Assistive Devices: None Review of Systems Constitutional: no fever and no chills Ear, Nose, Mouth, Throat: no ear pain Respiratory: no cough and no dyspnea Cardiovascular: no chest pain Gastrointestinal: as per Subjective / HPI Genitourinary: no dysuria Musculoskeletal: no back pain Integumentary: no rash Neurologic: no localized weakness Physical Exam Constitutional: WD/WN, vitals as above Eyes: no conjunctival abnormality ENMT: Ears: no hearing impairment and no external ear abnormality Mouth: no oropharynx abnormality Neck: trachea midline Respiratory: normal respiratory effort, lungs clear to auscultation Cardiovascular: Rate/Rhythm: regular rate and regular rhythm Vessels: dorsalis pedis pulses present and radial pulses present Gastrointestinal (Abdomen): Abdomen is soft and nondistended. Bowel sounds are hypoactive. There is no rebound tenderness or guarding. The patient did have generalized pain with palpation throughout her abdomen. Musculoskeletal: No calf tenderness Skin: no rashes Neurologic: moves all extremities Psychiatric: A+Ox3, euthymic affect Results & Data Vital Signs (Past 12 Hours) Vital Signs Temp Pulse Resp BP Pulse Ox O2 Del Method 01/10/23 17:22 36.5 C 89 20 138/89 97 Room Air PG Care Time/CCT Total # of Minutes Spent Total Time Spent with Patient: Total time spent is greater than 50% in coordination of care (as documented) at patient's floor/unit and/or counseling patient: Coding Level of Care Code 18787 INT INP/OBS CARE 75MIN Diagnoses Partial small bowel obstruction K56.600
[2023-01-10] MEDS ORDERED: LORazepam 2 MG/1 ML VIAL IV PRN (22:44)
[2023-01-10] MEDS ORDERED: LORazepam 2 MG/1 ML VIAL ONE (22:50)
[2023-01-11] MEDS: ACETAMINOPHEN 1000 MG/100 ML IV IV PRN (06:37)
[2023-01-11 06:39] LABS: Basophils # (auto) 0.03 K/uL (0-0.2); Basophils % (auto) 0.3 %; Eosinophils # (auto) 0.09 K/uL (0-0.50); Eosinophils % (auto) 0.9 %; Hematocrit (blood only) 37.2 % (37.0-47.0); Hemoglobin 12.2 g/dl (12.0-16.0); Immature Granulocytes # (auto) 0.06 K/uL (0.01-0.20); Immature Granulocytes % (auto) 0.6 %; Lymphocytes # (auto) 2.04 K/uL (1.2-3.4); Lymphocytes % (auto) 20.6 %; Mean Corpuscular Hemoglobin 27.8 pg (25.0-34.0); Mean Corpuscular Hgb Conc 32.8 g/dL (32.0-36.0); Mean Corpuscular Volume 84.7 fL (80.0-100.0); Mean Platelet Volume 8.3 fL (9.4-12.4); Monocytes # (auto) 0.84 K/uL (0.11-0.59); Monocytes % (auto) 8.5 %; Neutrophils # (auto) 6.84 K/uL (1.40-6.50); Neutrophils % (auto) 69.1 %; Platelet Count 244 K/uL (130-400); RDW Coefficient of Variation 15.9 % (11.5-14.5); RDW Standard Deviation 48.5 fL (36.4-46.3); Red Blood Count 4.39 M/uL (4.20-5.40)
[2023-01-11 06:48] LABS: Albumin Globulin Ratio 1.4 (0.9-2); Albumin Level 3.8 gm/dl (3.4-5.0); BUN Creatinine Ratio 23.7 (10-20); Bilirubin,Total 0.7 mg/dl (0.2-1.0); Creatinine Clr Calc Pharmacy 23.8 ml/min; Est GFR (African American) 42.9 ml/min; Globulin 2.8 gm/dl (2.5-4.0); Magnesium 2.1 mg/dl (1.7-2.4); Potassium 3.5 mmol/L (3.5-5.1); Total Protein 6.6 gm/dl (6.0-8.3)
--- NOTE | 2023-01-11 06:59 | XRay Report ---
KUB HISTORY: Status post placement of an enteric tube NGT placement COMPARISON: CT 01/10/2023 FINDINGS: Lower abdomen and pelvis are excluded from [id number]. Cardiomegaly with left subclavian pacer/ICD. Right abdominal surgical clips. Distended stomach and small bowel loops better seen on co mparison CT. Enteric tube is looped upon itself within the expected location of the intrathoracic sto mach with distal tip projected superiorly. Moderate sized hiatal hernia. IMPRESSION: Enteric tube is coiled upon itself with distal tip projected superiorly within the chest, likely with in the partially intrathoracic stomach/hiatal hernia. ACT 112: Negative or not required by law. The above report was generated using voice recognition software. It may contain grammatical, syntax o r spelling errors. Electronically signed by: Ted Wesley M.D. 01/11/2023 6:58 AM
[2023-01-11] MEDS: HEPARIN SOD 5,000 UNIT/0.5 ML VIAL SQ SCH ×2 (08:14→20:19)
[2023-01-11] MEDS ORDERED: Nursing to Pharmacy Communication SCH (08:15)
[2023-01-11] MEDS ORDERED: ROTIGOTINE PATCH TD SCH (09:00)
--- NOTE | 2023-01-11 09:41 | XRay Report ---
KUB HISTORY: Status post placement of an enteric tube COMPARISON: KUB of same day, CT 01/10/2023 FINDINGS: Cardiomegaly with partially imaged pacer/AICD lead. Surgical clips of the abdomen. Persiste nt small bowel dilation. Distended contrast-filled urinary bladder. Hiatal hernia. Partially imaged e nteric tube projects over the left lower chest No renal calculi. No ureteral calculi. No pneumoperit oneum or pneumatosis. No fracture. IMPRESSION: 1. Hiatal hernia with partially imaged distal tip of enteric tube projecting over the left lower ches t, likely within the intrathoracic stomach. 2. Persistent small bowel dilation. ACT 112: Negative or not required by law. The above report was generated using voice recognition software. It may contain grammatical, syntax o r spelling errors. Electronically signed by: Ted Wesley M.D. 01/11/2023 9:40 AM
[2023-01-11] MEDS: SODIUM CHLORIDE 0.9% 1000ML 1,000 ML IV SCH ×2 (10:05→22:00)
[2023-01-11] MEDS: PANTOprazole 40 MG in SYRINGE 0 ML IV SCH (10:06)
--- NOTE | 2023-01-11 10:10 | Surgery Progress Note ---
I saw and examined this patient. I agree with the plan. Date of Service January 11, 2023 Assessment & Plan (1) Partial small bowel obstruction: Plan: Patient here with abdominal pain/nausea/vomiting with CT concerning for SBO NGT in place in stomach within a hiatal hernia Patients abdomen is soft, non distended, with discomfort mostly in the upper abdomen For now would plan to give patient a trial of conservative management, NPO with IVF and continue NGT as she tolerates Will follow along closely Admission and Anticipated Discharge Date Admission Date: January 10, 2023 Subjective Patient says she is feeling about the same as when she came in. Still with some nausea, but no further emesis since NGT placed. Abdominal pain mostly present in upper abdomen. She is not passing flatus/BM. Physical Exam Physical Exam: awake/alert, no distress Respiratory: normal respiratory effort Gastrointestinal (Abdomen): Inspection/Auscultation: abdomen not distended Percussion/Palpation: + abdomen tender (discomfort mostly across upper abdomen ) and abdomen soft; no guarding NGT in place Results & Data Vital Signs (Past 12 Hours) Vital Signs Temp Pulse Resp BP Pulse Ox O2 Del Method 01/11/23 07:31 36.6 C 100 H 18 118/62 96 Room Air 01/11/23 00:16 36.6 C 98 H 18 143/81 H 95 Room Air PG Care Time/CCT Total # of Minutes Spent Total Time Spent with Patient: Total time spent is greater than 50% in coordination of care (as documented) at patient's floor/unit and/or counseling patient: Coding Level of Care Code 49688 SUB INP/OBS CARE 1/25MIN Diagnoses Partial small bowel obstruction K56.600
[2023-01-11] MEDS: MoRPHine SULFATE 2 MG/ML CARP IV PRN ×2 (10:53→23:22)
--- NOTE | 2023-01-11 11:05 | Hospitalist Progress Note ---
Date of Service January 11, 2023 Assessment & Plan (1) Partial small bowel obstruction: Plan: Acute, unstable Continue NPO with NGT LIS Phenergan as needed (zofran increased restless leg syndrome) Surgery following (2) ICD (implantable cardioverter-defibrillator), single, in situ: Plan: Chronic and stable CAD s/p acute LCx [place] and PCI (in [place] on 02/25/2022), Ventricular Arrhythmia s/p Emergent Cardioversion, Ischemic Cardiomyopathy s/p Single Chamber ICD Follows with Dr Scott per last OV records stated - that she had interrogation of the AICD in June 2022 and had all ventricular therapies have been turned off per patient's wishes. Patient is planning to stop all of her medications with the exception of Lasix as needed for shortness of breath, lorazepam, and morphine for comfort measures. She (3) Ischemic cardiomyopathy: Plan: Chronic Not currently taking any medications. ICD in place for secondary prevention but has been turned off. Last Echo 12/09/22 - LVH, LVEF 25-30%, severe inferolateral inferior wall hypokinesis, mild MR (4) CAD (coronary artery disease): Plan: Chronic As above (5) Restless leg syndrome: Plan: Chronic, unstable - daughter will bring in her own Neupro patch - Zofran given in ER seemed to increased restless leg syndrome (6) Rheumatoid arthritis: Plan: Chronic stable Holding prednisone 7.5 mg p.o. daily Hold on stress dose steroids, due to GI disturbance, however, would have a low threshold for adding hydrocortisone IV if adrenal insufficiency develops (7) Hypothyroidism: Plan: Chronic stable Continue Levothyroxine 100mcg daily last tsh 3.68 in November 2022 (8) Anxiety: Plan: Chronic stable Continue Lorazepam 0.5mg q 4H as needed (9) Acid reflux: Plan: Chronic stabl Continue Pantoprazole Admission and Anticipated Discharge Date Admission Date: January 10, 2023 Subjective Patient seen this AM in rounds. She states she is feeling about the same as when she came in. Has NGT to LIS and has about 500 bilious drainage n container. Abdominal pain mostly present in uppr and mid abdomen. She is not passing flatus/BM. She is nauseated and had some dry heaves. Zofran made her restless leg syndrome worse and she states she had Phenergan in the past and helped. Patient denies ever having SBP in the past and has only had one abdominal surgery (ureterolysis) Vaginal hysterectomy Review of Systems Review of Systems: The patient denies chest pain, palpitations, shortness of breath, dyspnea on exertion, cough, lower extremity swelling, sore throat, fevers, chills, sweats, diarrhea, blood in urine or stool, dysuria, urinary frequency or urgency, lightheadedness, dizziness, headache, memory loss, loss of consciousness, rash, abnormal bruising or bleeding, imbalance, focal or generalized weakness, numbness or tingling in arms or legs, generalized arthralgias or myalgias, back or neck pain, or night sweats. The review of systems is otherwise negative other than for that already noted above, and at least 10 systems have been reviewed. Physical Exam Constitutional: + ill appearing, average body habitus and cooperative ENMT: NG to LIS left nares appears to be suctioning well Neck: trachea midline, no thyromegaly Respiratory: normal respiratory effort, lungs clear to auscultation Cardiovascular: RRR, no murmur, no edema Gastrointestinal (Abdomen): BS present decreased, sot and tender to light palpation upper and mid abdomen with voluntary guarding Psychiatric: A+Ox3, euthymic affect Results & Data Results & Data Vital Signs (Past 12 Hours) Vital Signs Temp Pulse Resp BP Pulse Ox O2 Del Method 01/11/23 07:31 36.6 C 100 H 18 118/62 96 Room Air 01/11/23 00:16 36.6 C 98 H 18 143/81 H 95 Room Air Laboratory Results Abnormal lab results 01/10/23 01/10/23 01/11/23 Range/Units 18:11 18:11 05:55 RDW Std Deviation 48.1 H 48.5 H (36.4-46.3) fL RDW Coeff of [place] 15.9 H 15.9 H (11.5-14.5) % MPV 8.4 L 8.3 L (9.4-12.4) fL Neut # (Auto) 6.84 H (1.40-6.50) K/uL [place] # (Auto) 0.81 H 0.84 H (0.11-0.59) K/uL Sodium 133 L (136-145) mmol/L BUN 35 H (6-23) mg/dl Creatinine 1.38 H (0.6-1.2) mg/dl BUN/Creatinine Ratio 25.4 H (10-20) Glucose 100 H (70-99(Fasting)) mg/dl 01/11/23 Range/Units 05:55 RDW Std Deviation (36.4-46.3) fL RDW Coeff of [place] (11.5-14.5) % MPV (9.4-12.4) fL Neut # (Auto) (1.40-6.50) K/uL [place] # (Auto) (0.11-0.59) K/uL Sodium (136-145) mmol/L BUN 32 H (6-23) mg/dl Creatinine 1.35 H (0.6-1.2) mg/dl BUN/Creatinine Ratio 23.7 H (10-20) Glucose (70-99(Fasting)) mg/dl Diagnostic Findings Abdomen/Pelvis CT 01/10/23 19:27 Exam(s): CT ABDOMEN + PELVIS With Contrast IV Amt: 81 ml optiray 320 EXAM: CT Abdomen and Pelvis With Intravenous Contrast CLINICAL HISTORY: Reason for exam: abd pain vomittting. TECHNIQUE: Axial computed tomography images of the abdomen and pelvis with intravenous contrast. CTDI is 13.94 mGy and DLP is 547.85 mGy-cm. Automated exposure control was utilized for the study. A dose lowering technique was utilized adhering to the principles of ALARA. CONTRAST: Patient received 81 ml optiray 320 of IV contrast COMPARISON: 04/27/2022 FINDINGS: Lung bases: Unremarkable. No mass. No consolidation. Mediastinum: Hiatal hernia with half the stomach in the chest is unchanged from priors body. ABDOMEN: Liver: Unremarkable. No mass. Gallbladder and bile ducts: Unremarkable. No calcified stones. No ductal dilation. Pancreas: Unremarkable. No mass. No ductal dilation. Spleen: Unremarkable. No splenomegaly. Adrenals: Unremarkable. No mass. Kidneys and ureters: Atrophic and nonfunctioning left kidney. Stomach and bowel: Dilated proximal small bowel loops with formed fecal material. There is a transition zone with edematous mid small bowel within the mid abdomen best seen on coronal images 28-36. PELVIS: Appendix: No findings to suggest acute appendicitis. Bladder: Unremarkable. No mass. Reproductive: Unremarkable as visualized. ABDOMEN and PELVIS: Intraperitoneal space: Within the root of the mesentery, partially calcified soft tissue nodule measuring 2.3 cm craniocaudal is unchanged. No free air. No significant fluid collection. Bones/joints: No acute fracture. No dislocation. Soft tissues: See above. Vasculature: Unremarkable. No abdominal aortic aneurysm. Lymph nodes: Unremarkable. No enlarged lymph nodes. IMPRESSION: Dilated proximal small bowel loops with formed fecal material consistent with a partial small bowel obstruction. Transition zone in the mid abdomen with edematous small bowel. Electronically signed by: Bradley Melissa M.D. 01/10/23 21:05 PM KUB X-Ray 01/10/23 22:35 KUB HISTORY: Status post placement of an enteric tube NGT placement COMPARISON: CT 01/10/2023 FINDINGS: Lower abdomen and pelvis are excluded from [id number]. Cardiomegaly with left subclavian pacer/ICD. Right abdominal surgical clips. Distended stomach and small bowel loops better seen on comparison CT. Enteric tube is looped upon itself within the expected location of the intrathoracic stomach with distal tip projected superiorly. Moderate sized hiatal hernia. IMPRESSION: Enteric tube is coiled upon itself with distal tip projected superiorly within the chest, likely within the partially intrathoracic stomach/hiatal hernia. ACT 112: Negative or not required by law. The above report was generated using voice recognition software. It may contain grammatical, syntax or spelling errors. Electronically signed by: Ted Wesley M.D. 01/11/2023 6:58 AM KUB X-Ray 01/11/23 09:00 KUB HISTORY: Status post placement of an enteric tube COMPARISON: KUB of same day, CT 01/10/2023 FINDINGS: Cardiomegaly with partially imaged pacer/AICD lead. Surgical clips of the abdomen. Persistent small bowel dilation. Distended contrast-filled urinary bladder. Hiatal hernia. Partially imaged enteric tube projects over the left lower chest No renal calculi. No ureteral calculi. No pneumoperitoneum or pneumatosis. No fracture. IMPRESSION: 1. Hiatal hernia with partially imaged distal tip of enteric tube projecting over the left lower chest, likely within the intrathoracic stomach. 2. Persistent small bowel dilation. ACT 112: Negative or not required by law. The above report was generated using voice recognition software. It may contain grammatical, syntax or spelling errors. Electronically signed by: Ted Wesley M.D. 01/11/2023 9:40 AM PG Care Time/CCT Total # of Minutes Spent Total Time Spent with Patient: Total time spent is greater than 50% in coordination of care (as documented) at patient's floor/unit and/or counseling patient: Coding Level of Care Code 32823 SUB INP/OBS CARE 09/01MIN Diagnoses Partial small bowel obstruction K56.600 ICD (implantable cardioverter-defibrillator), single, in situ Z95.810 Ischemic cardiomyopathy I25.5 CAD (coronary artery disease) I25.10 Associated angina: without angina Coronary Disease-Associated Artery/Lesion type: [place] artery [place] vs. transplanted heart: [place] heart Restless leg syndrome G25.81 Rheumatoid arthritis M06.041; M06.042 Laterality: bilateral Rheumatoid arthritis location: hand Rheumatoid factor presence: without rheumatoid factor Hypothyroidism E03.9 Hypothyroidism type: acquired Anxiety F41.9 Acid reflux K21.9 (4) CAD (coronary artery disease) Associated angina: without angina Coronary Disease-Associated Artery/Lesion type: [place] artery [place] vs. transplanted heart: [place] heart Qualified Code(s): I25.10 - Atherosclerotic heart disease of [place] coronary artery without angina pectoris (6) Rheumatoid arthritis Laterality: bilateral Rheumatoid arthritis location: hand Rheumatoid factor presence: without rheumatoid factor Qualified Code(s): M06.041 - Rheumatoid arthritis without rheumatoid factor, right hand; M06.042 - Rheumatoid arthritis without rheumatoid factor, left hand (7) Hypothyroidism Hypothyroidism type: acquired Qualified Code(s): E03.9 - Hypothyroidism, unspecified
[2023-01-11] MEDS: ROTIGOTINE PATCH TD SCH (20:18)
[2023-01-12] MEDS: MoRPHine SULFATE 2 MG/ML CARP IV PRN ×2 (06:38→20:11)
[2023-01-12 07:56] LABS: Basophils # (auto) 0.03 K/uL (0-0.2); Basophils % (auto) 0.3 %; Eosinophils # (auto) 0.09 K/uL (0-0.50); Hematocrit (blood only) 36.5 % (37.0-47.0); Hemoglobin 11.7 g/dl (12.0-16.0); Immature Granulocytes # (auto) 0.03 K/uL (0.01-0.20); Immature Granulocytes % (auto) 0.3 %; Lymphocytes # (auto) 1.57 K/uL (1.2-3.4); Mean Corpuscular Hemoglobin 27.4 pg (25.0-34.0); Mean Corpuscular Hgb Conc 32.1 g/dL (32.0-36.0); Mean Corpuscular Volume 85.5 fL (80.0-100.0); Mean Platelet Volume 8.7 fL (9.4-12.4); Monocytes # (auto) 0.74 K/uL (0.11-0.59); Neutrophils % (auto) 73.4 %; Platelet Count 239 K/uL (130-400); RDW Coefficient of Variation 16.1 % (11.5-14.5); Red Blood Count 4.27 M/uL (4.20-5.40); White Blood Count 9.26 K/ul (4.8-10.8)
[2023-01-12 08:13] LABS: Albumin Globulin Ratio 1.3 (0.9-2); Albumin Level 3.6 gm/dl (3.4-5.0); BUN Creatinine Ratio 23.9 (10-20); Bilirubin,Total 0.6 mg/dl (0.2-1.0); Calcium 8.5 mg/dl (8.6-10.3); Creatinine Clr Calc Pharmacy 28.4 ml/min; Est GFR (African American) 53.2 ml/min; Est GFR (Non-African American) 45.9 ml/min; Globulin 2.8 gm/dl (2.5-4.0); Magnesium 2.1 mg/dl (1.7-2.4); Potassium 3.9 mmol/L (3.5-5.1); Total Protein 6.4 gm/dl (6.0-8.3)
[2023-01-12] MEDS: GLUCAGON FOR INJ 1 MG VIAL SQ PRN ×2 (08:24→09:01)
[2023-01-12] MEDS: HEPARIN SOD 5,000 UNIT/0.5 ML VIAL SQ SCH ×2 (08:30→19:32)
[2023-01-12 09:24] LABS: Appearance Urine Clear (Clear); Bacteria Urine Automated Negative (Negative); Bilirubin Urine Negative (Negative); Blood Urine 1+ (Negative); Cast Urine Automated 0 /lpf (0-5); Color Urine Yellow; Epithelial Cell Urine Auto 0-5 /lpf (0-5); Glucose Urine UA Negative (Negative); Ketones Urine 2+ (Negative); Leukocyte Esterase Urine Negative (Negative); Nitrite Urine Negative (Negative); Protein Urine Negative (Negative); RBC Urine Automated 0-4 /hpf (0-4); Specific Gravity Urine 1.017 (1.000-1.030); Urobilinogen Urine Negative (Negative); pH Urine 5.5 (4.5-7.5)
[2023-01-12] MEDS: DEXTROSE 5% 1,000 ML IV SCH ×2 (09:25→20:30)
--- NOTE | 2023-01-12 09:43 | Surgery Progress Note ---
I saw and examined this patient this am. She does admit to feeling improved. Passed a small amount of gas this am. Encouraged ambulation in the adler with assistance if not on narcotic pain medication. Will continue with conservative management at this time. Date of Service January 12, 2023 Assessment & Plan (1) Partial small bowel obstruction: Plan: Patient here with abdominal pain/nausea/vomiting with CT concerning for SBO NGT in place in stomach within a hiatal hernia, 350cc documented over last 24 hours Patients abdomen is soft, non distended, with discomfort mostly in the upper abdomen For now continue conservative management, NPO with IVF and NGT Awaiting return of bowel function Hospitalists adjusting fluids/meds for hypoglycemia noted this AM Continue to work on OOB as tolerates, may clamp NGT temporarily to ambulate the halls Will follow along closely Admission and Anticipated Discharge Date Admission Date: January 10, 2023 Subjective Patient says she is feeling about the same. Continues with some upper abdominal pain. Denies any nausea this AM nor episodes of emesis. She reports passing flatusx1 this AM. No symptoms from her low blood sugar this AM. Physical Exam Physical Exam: awake/alert, no distress Respiratory: normal respiratory effort Gastrointestinal (Abdomen): Inspection/Auscultation: abdomen not distended Percussion/Palpation: + abdomen tender (discomfort mostly across upper abdomen ) and abdomen soft; no guarding Results & Data Vital Signs (Past 12 Hours) Vital Signs Temp Pulse Resp BP Pulse Ox O2 Del Method 01/12/23 07:45 36.9 C 94 H 12 122/76 98 Room Air PG Care Time/CCT Total # of Minutes Spent Total Time Spent with Patient: Total time spent is greater than 50% in coordination of care (as documented) at patient's floor/unit and/or counseling patient: Coding Level of Care Code 64616 SUB INP/OBS CARE 09/01MIN Diagnoses Partial small bowel obstruction K56.600
[2023-01-12] MEDS: PANTOprazole 40 MG in SYRINGE 0 ML IV SCH (12:03)
--- NOTE | 2023-01-12 12:20 | Hospitalist Progress Note ---
Date of Service January 12, 2023 Assessment & Plan (1) Partial small bowel obstruction: Plan: Acute, unstable Continue NPO with NGT LIS Phenergan as needed (zofran increased restless leg syndrome) Surgery following Encouraged up and OOG, surgery stated ok to clamp NGT to walk the halls (2) ICD (implantable cardioverter-defibrillator), single, in situ: Plan: Chronic and stable CAD s/p acute [place]x [place] and PCI (in [place] on 02/25/2022), Ventricular Arrhythmia s/p Emergent Cardioversion, Ischemic Cardiomyopathy s/p Single Chamber ICD Follows with Dr Scott per last OV records stated - that she had interrogation of the AICD in June 2022 and had all ventricular therapies have been turned off per patient's wishes. Patient is planning to stop all of her medications with the exception of Lasix as needed for shortness of breath, lorazepam, and morphine for comfort measures. (3) Ischemic cardiomyopathy: Plan: Chronic Not currently taking any medications. ICD in place for secondary prevention but has been turned off. Last Echo 12/09/22 - LVH, LVEF 25-30%, severe inferolateral inferior wall hypokinesis, mild MR (4) CAD (coronary artery disease): Plan: Chronic As above (5) Restless leg syndrome: Plan: Chronic, unstable - daughter will bring in her own Neupro patch (daughter asking to increase patch - will defer to PCP since we do not have that medication here) - Zofran given in ER seemed to increased restless leg syndrome (6) Rheumatoid arthritis: Plan: Chronic stable Holding prednisone 7.5 mg p.o. daily Hold on stress dose steroids, due to GI disturbance, however, would have a low threshold for adding hydrocortisone IV if adrenal insufficiency develops (7) Hypothyroidism: Plan: Chronic stable Continue Levothyroxine 100mcg daily last tsh 3.68 in November 2022 (8) Anxiety: Plan: Chronic stable Continue Lorazepam 0.5mg q 4H as needed (9) Acid reflux: Plan: Chronic stable Continue Pantoprazole Admission and Anticipated Discharge Date Admission Date: January 10, 2023 Subjective Patient was awake sitting up in bed and states she does feel minimally better compared to yesterday. Still with NGT and had 400cc bilious drainage overnight. She admits to passing flatus x 1 episode, no BM. She denies any further nausea or dry heaves. Had episode of asymptomatic hypoglycemia this AM and treated with glucagon. Currently BS 78 Review of Systems Review of Systems: The patient denies chest pain, palpitations, shortness of breath, dyspnea on exertion, cough, lower extremity swelling, sore throat, fevers, chills, sweats, diarrhea, blood in urine or stool, dysuria, urinary frequency or urgency, lightheadedness, dizziness, headache, memory loss, loss of consciousness, rash, abnormal bruising or bleeding, imbalance, focal or generalized weakness, numbness or tingling in arms or legs, generalized arthralgias or myalgias, back or neck pain, or night sweats. The review of systems is otherwise negative other than for that already noted above, and at least 10 systems have been reviewed. Physical Exam Constitutional: + ill appearing, average body habitus and cooperative Neck: trachea midline, no thyromegaly Respiratory: normal respiratory effort, lungs clear to auscultation Cardiovascular: RRR, no murmur, no edema Gastrointestinal (Abdomen): Inspection/Auscultation: abdomen normal to inspection Percussion/Palpation: + abdomen tender and abdomen soft; abdomen not rigid, no hepatosplenomegaly, no splenomegaly and no abdominal mass old healed surgical scar over upper mid abdomen, tender to palpation epigastric to mid abdomen Skin: no rashes, warm and dry Neurologic: PERRL, EOMI, accommodation nl, no face palsy, no dysarthria Psychiatric: A+Ox3, euthymic affect Results & Data Results & Data Vital Signs (Past 12 Hours) Vital Signs Temp Pulse Resp BP Pulse Ox O2 Del Method 01/12/23 07:45 36.9 C 94 H 12 122/76 98 Room Air Laboratory Results Abnormal lab results 01/12/23 01/12/23 01/12/23 Range/Units 06:23 06:23 08:22 Hgb 11.7 L (12.0-16.0) g/dl Hct 36.5 L (37.0-47.0) % RDW Std Deviation 50.0 H (36.4-46.3) fL RDW Coeff of Sachin 16.1 H (11.5-14.5) % MPV 8.7 L (9.4-12.4) fL Neut # (Auto) 6.80 H (1.40-6.50) K/uL Bates # (Auto) 0.74 H (0.11-0.59) K/uL Chloride 108 H (98-107) mmol/L Carbon Dioxide 18 L (21-32) mmol/L Anion Gap 15 H (3-11) BUN 27 H (6-23) mg/dl BUN/Creatinine Ratio 23.9 H (10-20) Glucose 41 L* (70-99(Fasting)) mg/dl POC Glucose 43 L* (70-99) mg/dl Calcium 8.5 L (8.6-10.3) mg/dl Urine Ketones (Negative) Urine Blood (Negative) 01/12/23 01/12/23 01/12/23 Range/Units 08:45 09:01 09:20 Hgb (12.0-16.0) g/dl Hct (37.0-47.0) % RDW Std Deviation (36.4-46.3) fL RDW Coeff of Sachin (11.5-14.5) % MPV (9.4-12.4) fL Neut # (Auto) (1.40-6.50) K/uL Bates # (Auto) (0.11-0.59) K/uL Chloride (98-107) mmol/L Carbon Dioxide (21-32) mmol/L Anion Gap (3-11) BUN (6-23) mg/dl BUN/Creatinine Ratio (10-20) Glucose (70-99(Fasting)) mg/dl POC Glucose 45 L* 50 L* (70-99) mg/dl Calcium (8.6-10.3) mg/dl Urine Ketones 2+ H (Negative) Urine Blood 1+ H (Negative) PG Care Time/CCT Total # of Minutes Spent Total Time Spent with Patient: Total time spent is greater than 50% in coordination of care (as documented) at patient's floor/unit and/or counseling patient: Coding Level of Care Code 81489 SUB INP/OBS CARE 09/01MIN Diagnoses Partial small bowel obstruction K56.600 ICD (implantable cardioverter-defibrillator), single, in situ Z95.810 Ischemic cardiomyopathy I25.5 CAD (coronary artery disease) I25.10 Coronary Disease-Associated Artery/Lesion type: [place] artery [place] vs. transplanted heart: [place] heart Associated angina: without angina Restless leg syndrome G25.81 Rheumatoid arthritis M06.041; M06.042 Rheumatoid arthritis location: hand Rheumatoid factor presence: without rheumatoid factor Laterality: bilateral Hypothyroidism E03.9 Hypothyroidism type: acquired Anxiety F41.9 Acid reflux K21.9 (4) CAD (coronary artery disease) Coronary Disease-Associated Artery/Lesion type: [place] artery [place] vs. transplanted heart: [place] heart Associated angina: without angina Qualified Code(s): I25.10 - Atherosclerotic heart disease of [place] coronary artery without angina pectoris (6) Rheumatoid arthritis Rheumatoid arthritis location: hand Rheumatoid factor presence: without rheumatoid factor Laterality: bilateral Qualified Code(s): M06.041 - Rheumatoid arthritis without rheumatoid factor, right hand; M06.042 - Rheumatoid arthritis without rheumatoid factor, left hand (7) Hypothyroidism Hypothyroidism type: acquired Qualified Code(s): E03.9 - Hypothyroidism, unspecified
[2023-01-12] MEDS: ACETAMINOPHEN 1000 MG/100 ML IV IV PRN (17:23)
[2023-01-12] MEDS ORDERED: SODIUM CHLORIDE 0.65% NA SOLN 45 ML (OCEAN) PRN (18:41)
[2023-01-12] MEDS: PROMETHAZINE HCL 12.5 MG in SODIUM CHLORIDE 0.9% 50 ML IV PRN (19:29)
[2023-01-12] MEDS: ROTIGOTINE PATCH TD SCH (19:33)
[2023-01-12] MEDS: SODIUM CHLORIDE 0.65% NA SOLN 45 ML (OCEAN) NAE SCH (21:24)
[2023-01-13] MEDS: MoRPHine SULFATE 2 MG/ML CARP IV PRN ×3 (04:34→20:55)
[2023-01-13] MEDS: DEXTROSE 5% 1,000 ML IV SCH (05:49)
[2023-01-13] MEDS: PROMETHAZINE HCL 12.5 MG in SODIUM CHLORIDE 0.9% 50 ML IV PRN ×2 (05:49→12:05)
[2023-01-13 06:39] LABS: Basophils # (auto) 0.02 K/uL (0-0.2); Basophils % (auto) 0.2 %; Eosinophils # (auto) 0.08 K/uL (0-0.50); Eosinophils % (auto) 0.7 %; Hematocrit (blood only) 38.3 % (37.0-47.0); Hemoglobin 12.5 g/dl (12.0-16.0); Immature Granulocytes # (auto) 0.06 K/uL (0.01-0.20); Immature Granulocytes % (auto) 0.6 %; Lymphocytes # (auto) 2.29 K/uL (1.2-3.4); Lymphocytes % (auto) 21.3 %; Mean Corpuscular Hemoglobin 27.5 pg (25.0-34.0); Mean Corpuscular Hgb Conc 32.6 g/dL (32.0-36.0); Mean Corpuscular Volume 84.4 fL (80.0-100.0); Mean Platelet Volume 8.4 fL (9.4-12.4); Monocytes # (auto) 0.95 K/uL (0.11-0.59); Monocytes % (auto) 8.8 %; Neutrophils # (auto) 7.37 K/uL (1.40-6.50); Neutrophils % (auto) 68.4 %; Platelet Count 217 K/uL (130-400); RDW Standard Deviation 49.6 fL (36.4-46.3); Red Blood Count 4.54 M/uL (4.20-5.40); White Blood Count 10.77 K/ul (4.8-10.8)
[2023-01-13 08:27] LABS: Albumin Level 3.7 gm/dl (3.4-5.0); Calcium 8.7 mg/dl (8.6-10.3); Potassium 3.8 mmol/L (3.5-5.1)
[2023-01-13 08:38] LABS: BUN Creatinine Ratio 18.6 (10-20); Creatinine Clr Calc Pharmacy 31.5 ml/min; Est GFR (African American) 60.2 ml/min; Est GFR (Non-African American) 51.9 ml/min; Magnesium 1.9 mg/dl (1.7-2.4)
[2023-01-13 08:39] LABS: Albumin Globulin Ratio 1.2 (0.9-2); Globulin 3.1 gm/dl (2.5-4.0); Total Protein 6.8 gm/dl (6.0-8.3)
[2023-01-13] MEDS: SODIUM CHLORIDE 0.65% NA SOLN 45 ML (OCEAN) NAE SCH ×4 (08:39→20:45)
[2023-01-13] MEDS: HEPARIN SOD 5,000 UNIT/0.5 ML VIAL SQ SCH ×2 (08:39→20:45)
--- NOTE | 2023-01-13 09:31 | Surgery Progress Note ---
Date of Service January 13, 2023 Assessment & Plan (1) Partial small bowel obstruction: Plan While she has made some small progress, I do not feel as though she is progressing as well as I would like her to. She is passing more flatus and this does not seem as though this obstruction is complete but is still quite tender and she is still having waves of nausea. I would like to proceed with a small bowel follow through this am. Admission and Anticipated Discharge Date Admission Date: January 10, 2023 Subjective The patient was seen and examined this am. She continues to c/o intermittent nausea, required medication early this am. While she says she feels better from an abdominal standpoint, she notes still having pain and tenderness at the epigastric and RUQ areas. This am she c/o headache, suspecting sinus infection and admits to feeling SOB. She does admit to having a large bowel movement and says she passed a little more gas than yesterday. Physical Exam Constitutional: cooperative; no acute distress, no altered mental status and not diaphoretic Does not appear to progressing. Hard to tell if it is the headache bothering her more or her abdomen as she states her abdomen feels better. Respiratory: + uses accessory muscles; + abnormal respiratory effort (does appear to be slightly SOB), no respiratory distress and no labored breathing Gastrointestinal (Abdomen): Inspection/Auscultation: + abdominal surgical scar (well healed, midline); abdomen not distended Percussion/Palpation: + abdomen tender (moderately TTP epigastric and RUQ), + guarding (Voluntary guarding) and abdomen soft; abdomen not rigid Results & Data Vital Signs (Past 12 Hours) Vital Signs Temp Pulse Pulse Resp BP Pulse Ox O2 Del Method 01/13/23 07:46 37.2 C 108 H 16 147/99 H 95 Room Air 01/12/23 23:04 37.0 C 97 H 16 129/79 93 Room Air PG Care Time/CCT Total # of Minutes Spent Total Time Spent with Patient: Total time spent is greater than 50% in coordination of care (as documented) at patient's floor/unit and/or counseling patient: Coding [place] [address] SUB INP/OBS CARE 1/25MIN Patient Type Established History Problem Focused Exam Problem Focused Medical Decision Making Low Complexity Diagnoses Partial small bowel obstruction K56.600
--- NOTE | 2023-01-13 09:45 | XRay Report ---
KUB CLINICAL HISTORY: Follow up small bowel obstruction. COMPARISON STUDY: CT of the abdomen and pelvis January 10, 2023. KUB January 11, 2023. FINDINGS: Lumbar spine levoscoliosis is incidentally noted. The tip of the nasogastric tube projects over the left lower mediastinum, likely within the intrathoracic portion of the stomach. Small bowel dilatation has improved. Single loop of mildly dilated small bowel measures 3.2 cm in caliber. IMPRESSION: 1. Mild small bowel dilatation, improved since prior examination. 2. Hiatal hernia. Tip of nasogastric tube likely within the intrathoracic portion of the stomach. ACT 112: Negative or not required by law. Electronically signed by: Wally Nichols M.D. 01/13/2023 9:43 AM
[2023-01-13] MEDS: PANTOprazole 40 MG in SYRINGE 0 ML IV SCH (11:36)
--- NOTE | 2023-01-13 12:27 | Hospitalist Progress Note ---
Date of Service January 13, 2023 Assessment & Plan (1) Partial small bowel obstruction: Plan: Acute, unstable - high risk - Continue NPO with NGT LIS - IV Phenergan as needed (zofran increased restless leg syndrome) - General Surgery following, appreciate assistance - Obtained a SBFT this AM, results pending but pt more uncomfortable since study - CBC & BMP reviewed, no leukocytosis, H&H stable, Na 132 but no other electrolyte disturbances, preserved renal function - Given NPO status, add IVF - D5NSS @ 80 ml/hr - Encouraged up and OOB as able if GS still feels pt may clamp NGT while ambulating - Continue PPI IV daily - Pain control ordered - IV APAP as first line and Morphine IV 2mg q2 prn mod to severe pain (2) ICD (implantable cardioverter-defibrillator), single, in situ: Plan: Chronic and stable - CAD s/p acute [place]x [place] and PCI (in [place] on 02/25/2022), Ventricular Arrhythmia s/p Emergent Cardioversion, Ischemic Cardiomyopathy s/p Single Chamber ICD - Last Echo 12/09/22 - LVH, LVEF 25-30%, severe inferolateral inferior wall hypokinesis, mild MR - Follows with Jhonatan Scott PA-C per last OV records stated - that she had interrogation of the AICD in June 2022 and had all ventricular therapies have been turned off per patient's wishes. - Per prior documentation, pt is planning to stop all of her medications with the exception of Lasix as needed for shortness of breath, lorazepam, and morphine for comfort measures - Unclear when she is planning to do this ?? (3) Restless leg syndrome: Plan: Chronic, unstable - daughter will bring in her own Neupro patch (daughter asking to increase patch - will defer to PCP since we do not have that medication here) - Zofran given in ER seemed to increased restless leg syndrome (4) Rheumatoid arthritis: Plan: Chronic stable - Holding prednisone 7.5 mg p.o. daily - Hold on stress dose steroids, due to GI disturbance, however, would have a low threshold for adding hydrocortisone IV if adrenal insufficiency develops (5) Hypothyroidism: Plan: Chronic stable - Continue Levothyroxine 100mcg daily - last tsh 3.68 in November 2022 (6) Anxiety: Plan: Chronic stable - Continue Lorazepam 0.5mg q 4H as needed Plan Heparin is on board for DVT ppx. Await results of SBFT and appreciate surgical assistance in this case. Repeat labs in AM including CBC and BMP. Plan to be d/w Dr. Tinsley. Admission and Anticipated Discharge Date Admission Date: January 10, 2023 Supervising Physician Co-Signing Physician Notes PA Supervision Note: I did not personally see or examine the patient. I verified all haynes points and agree with USMAN Nick with the following exceptions and/or additions: None Subjective Patient was seen on daily rounds this morning. She has just returned from a SBFT this AM and is c/o nausea and abdominal pain, worse in the epigastric area. NGT remains in place with approx 450 cc of dark green gastric contents in the canister, not sure over what period of time this output is from. She is passing flatus and had a BM overnight. Also c/o headache. Denies fever, chills, cp, dypsnea. Physical Exam Physical Exam: GENERAL: 82 yo well-developed, well-nourished [place]. AAOx4. Appears uncomfortable but in NAD. LUNGS: Clear to auscultation bilaterally w/o w/r/r CARDIOVASCULAR: Regular rate and rhythm ABDOMEN: Soft with few BS noted on auscultation. No rigidity. TTP in epigastrium. No masses appreciated. EXTREMITIES: No edema. Non-tender. Peripheral pulses +2/4. Results & Data Results & Data Vital Signs (Past 12 Hours) Vital Signs Temp Pulse Resp BP Pulse Ox O2 Del Method 01/13/23 07:46 37.2 C 108 H 16 147/99 H 95 Room Air Laboratory Results 01/13/23 06:02 01/13/23 06:02 Diagnostic Findings KUB X-Ray 01/13/23 08:47 KUB CLINICAL HISTORY: Follow up small bowel obstruction. COMPARISON STUDY: CT of the abdomen and pelvis January 10, 2023. KUB January 11, 2023. FINDINGS: Lumbar spine levoscoliosis is incidentally noted. The tip of the nasogastric tube projects over the left lower mediastinum, likely within the intrathoracic portion of the stomach. Small bowel dilatation has improved. Single loop of mildly dilated small bowel measures 3.2 cm in caliber. IMPRESSION: 1. Mild small bowel dilatation, improved since prior examination. 2. Hiatal hernia. Tip of nasogastric tube likely within the intrathoracic portion of the stomach. ACT 112: Negative or not required by law. Electronically signed by: Wally Nichols M.D. 01/13/2023 9:43 AM PG Care Time/CCT Total # of Minutes Spent Total Time Spent with Patient: Total time spent is greater than 50% in coordination of care (as documented) at patient's floor/unit and/or counseling patient: Coding Level of Care Code 17397 SUB INP/OBS CARE 3/50MIN Diagnoses Partial small bowel obstruction K56.600 ICD (implantable cardioverter-defibrillator), single, in situ Z95.810 Restless leg syndrome G25.81 Rheumatoid arthritis M06.041; M06.042 Laterality: bilateral Rheumatoid arthritis location: hand Rheumatoid factor presence: without rheumatoid factor Hypothyroidism E03.9 Hypothyroidism type: acquired Anxiety F41.9 (4) Rheumatoid arthritis Laterality: bilateral Rheumatoid arthritis location: hand Rheumatoid factor presence: without rheumatoid factor Qualified Code(s): M06.041 - Rheumatoid arthritis without rheumatoid factor, right hand; M06.042 - Rheumatoid arthritis without rheumatoid factor, left hand (5) Hypothyroidism Hypothyroidism type: acquired Qualified Code(s): E03.9 - Hypothyroidism, unspecified
[2023-01-13] MEDS: D5W AND NSS 1,000 ML IV SCH (12:52)
--- NOTE | 2023-01-13 12:53 | Fluoroscopy Report ---
[place] small bowel follow through CLINICAL HISTORY: 82 years-old Female with SBO. Acute generalized abdominal pain with reported small bowel obstruction TECHNIQUE: Oral barium was administered to the patient and serial radiographs of the abdomen were pe rformed. COMPARISON STUDY: KUB 01/13/2023, CT 01/10/2023 FLUOROSCOPY TIME: 0 minutes. FINDINGS: X Ray Equipment Tester radiograph of the abdomen demonstrates mildly dilated loops of small bowel measuring up to 3 cm. cardiomegaly with partially imaged pacer/AICD lead. Distal tip of enteric tube projects over a partially intrathoracic stomach with hiatal hernia. Surgical clips of the abdomen. Lumbar levo scoliosis. Only 250 mL of Optiray 320 was administered secondary to patient discomfort. Upon the administration of oral barium contrast through the enteric tube, there is prompt opacification of the gastric lumen and proximal small bowel. Images were obtained through 30 minutes which demonstrated mildly dilated contrast loops of small bowel with expected distal small bowel progression Transit to the large bowel occurred at approximately 2 hrs. Mild colonic diverticulosis. The terminal ileum appears unremarkabl e. IMPRESSION: 1. Mild small bowel dilation without obstruction. 2. Hiatal hernia with partially thoracic stomach. ACT 112: Negative or not required by law. The above report was generated using voice recognition software. It may contain grammatical, syntax o r spelling errors. Electronically signed by: Ted Wesley M.D. 01/13/2023 12:51 PM
[2023-01-13] MEDS: ROTIGOTINE PATCH TD SCH (20:44)
[2023-01-13] MEDS: ACETAMINOPHEN 1000 MG/100 ML IV IV PRN ×2 (20:55→22:19)
[2023-01-14] MEDS: D5W AND NSS 1,000 ML IV SCH ×2 (01:00→11:21)
[2023-01-14] MEDS: PROMETHAZINE HCL 12.5 MG in SODIUM CHLORIDE 0.9% 50 ML IV PRN ×2 (05:01→15:40)
[2023-01-14 06:38] LABS: Basophils # (auto) 0.02 K/uL (0-0.2); Basophils % (auto) 0.2 %; Eosinophils # (auto) 0.17 K/uL (0-0.50); Eosinophils % (auto) 1.5 %; Hematocrit (blood only) 36.3 % (37.0-47.0); Hemoglobin 11.7 g/dl (12.0-16.0); Immature Granulocytes # (auto) 0.06 K/uL (0.01-0.20); Immature Granulocytes % (auto) 0.5 %; Lymphocytes # (auto) 2.77 K/uL (1.2-3.4); Lymphocytes % (auto) 24.6 %; Mean Corpuscular Hemoglobin 27.6 pg (25.0-34.0); Mean Corpuscular Hgb Conc 32.2 g/dL (32.0-36.0); Mean Corpuscular Volume 85.6 fL (80.0-100.0); Mean Platelet Volume 8.8 fL (9.4-12.4); Monocytes # (auto) 1.17 K/uL (0.11-0.59); Monocytes % (auto) 10.4 %; Neutrophils # (auto) 7.07 K/uL (1.40-6.50); Neutrophils % (auto) 62.8 %; Platelet Count 208 K/uL (130-400); RDW Coefficient of Variation 16.5 % (11.5-14.5); RDW Standard Deviation 50.8 fL (36.4-46.3); Red Blood Count 4.24 M/uL (4.20-5.40); White Blood Count 11.26 K/ul (4.8-10.8)
[2023-01-14 06:56] LABS: Calcium 8.3 mg/dl (8.6-10.3); Creatinine Clr Calc Pharmacy 27.9 ml/min; Est GFR (Non-African American) 44.9 ml/min; Magnesium 1.8 mg/dl (1.7-2.4); Potassium 3.4 mmol/L (3.5-5.1)
[2023-01-14] MEDS: MoRPHine SULFATE 2 MG/ML CARP IV PRN (07:28)
[2023-01-14] MEDS: HEPARIN SOD 5,000 UNIT/0.5 ML VIAL SQ SCH ×2 (07:29→19:49)
[2023-01-14] MEDS: SODIUM CHLORIDE 0.65% NA SOLN 45 ML (OCEAN) NAE SCH ×4 (07:31→19:50)
--- NOTE | 2023-01-14 08:56 | Surgery Progress Note ---
The patient was seen and examined. I agree with the plan SBFT yesterday was completely normal without evidence for obstruction. Patient remains TTP isolated to the epigastric area. She also has classic am nausea that is controlled with Phenergan and then without episodes of nausea the rest of the day. May clamp NGT today and she may have sips of clears. Start Carafate in slurry form GI consult to consider EGD. In the meantime will prophylactically increase Protonix to BID and start Carafate to see if this will help with epigastric symptoms considering this may be gastritis vs ulceration secondary to hiatal hernia. Ultimately the patient may now benefit from hiatal hernia repair. Follow up with Dr. Edmondson as an outpatient to discuss the possibility of a hiatal hernia repair. Date of Service January 14, 2023 Assessment & Plan (1) Partial small bowel obstruction: Plan: Patient here with concern for partial SBO SBFT obtained yesterday revealed contrast reached the colon NGT output has been very minimal over last 24 hours. She is not passing much flatus, but had BM yest Intermittently requiring anti-emetics She is wet press tender to palpation in the epigastric region, unclear if some of symptoms related to her hiatal hernia?? We will perform NGT clamp trial and see how she fairs Will discuss with medicine and possibility of GI involvement for hiatal hernia and their thoughts on EGD for further eval? Will follow, but not plans for surgical intervention indicated at this time Admission and Anticipated Discharge Date Admission Date: January 10, 2023 Subjective Patient doing okay. Still with ongoing pain in the epigastric region. Taking in nausea medication intermittently. Had a BM yesterday. Not passing much flatus Physical Exam Physical Exam: awake/alert, no distress Respiratory: normal respiratory effort Gastrointestinal (Abdomen): Inspection/Auscultation: abdomen not distended Percussion/Palpation: + abdomen tender (discomfort mostly across upper abdomen ) and abdomen soft; no guarding NGT with minimal to no output over last 24 hours Results & Data Vital Signs (Past 12 Hours) Vital Signs Temp Pulse Pulse Resp BP Pulse Ox O2 Del Method 01/14/23 07:30 Room Air 01/14/23 07:38 37.0 C 92 H 18 123/80 98 Room Air 01/13/23 21:49 37.1 C 103 H 18 143/92 H 97 Room Air PG Care Time/CCT Total # of Minutes Spent Total Time Spent with Patient: Total time spent is greater than 50% in coordination of care (as documented) at patient's floor/unit and/or counseling patient: Coding Level of Care Code 75839 SUB INP/OBS CARE 09/01MIN Diagnoses Partial small bowel obstruction K56.600
--- NOTE | 2023-01-14 09:51 | Hospitalist Progress Note ---
Date of Service January 14, 2023 Assessment & Plan (1) Partial small bowel obstruction: Plan: Acute and resolved - Clamped NG and nursing to check residuals - IV Phenergan as needed (zofran increased restless leg syndrome) - General Surgery following, appreciate assistance - GI evaluated today per surgery for persistent nausea and epigastric pain - Encouraged up and OOB and limit narcotic pain meds - Continue PPI IV increased to BID - GI also added carafate when able to tolerate po - Pain control ordered - IV APAP as first line and Morphine IV 2mg q2 prn mod to severe pain - Hope to remove NG tomorrow and hope to be able to trial clear liquids (2) ICD (implantable cardioverter-defibrillator), single, in situ: Plan: Chronic and stable - CAD s/p acute LCx [place] and PCI (in [place] on 02/25/2022), Ventricular Arrhythmia s/p Emergent Cardioversion, Ischemic Cardiomyopathy s/p Single Chamber ICD - Last Echo 12/09/22 - LVH, LVEF 25-30%, severe inferolateral inferior wall hypokinesis, mild MR - Follows with Jhonatan Scott PA-C per last OV records stated - that she had interrogation of the AICD in June 2022 and had all ventricular therapies have been turned off per patient's wishes. - Per prior documentation, pt is planning to stop all of her medications with the exception of Lasix as needed for shortness of breath, lorazepam, and morphine for comfort measures - Unclear when she is planning to do this ?? (3) Restless leg syndrome: Plan: Chronic, unstable - daughter will bring in her own Neupro patch (daughter asking to increase patch - will defer to PCP since we do not have that medication here) - Zofran given in ER seemed to increased restless leg syndrome (4) Rheumatoid arthritis: Plan: Chronic stable - Holding prednisone 7.5 mg p.o. daily - Hold on stress dose steroids, due to GI disturbance, however, would have a low threshold for adding hydrocortisone IV if adrenal insufficiency develops (5) Hypothyroidism: Plan: Chronic stable - Continue Levothyroxine 100mcg daily - last tsh 3.68 in November 2022 (6) Anxiety: Plan: Chronic stable - Continue Lorazepam 0.5mg q 4H as needed Plan Heparin is on board for DVT ppx. Repeat labs in AM including CBC and BMP. NGT clamped encouraged OOB and hope to trial clear liquids and remove NGT tomorrow GI increased PPI to BID and added carafate when able to take po Admission and Anticipated Discharge Date Admission Date: January 10, 2023 Subjective Patient seen this AM, she is still having nausea. NGT with no output, Had several BMs and one throughout the night. Yesterday had SBFT revealing no obstruction. Surgery requested a GI consult for the nausea and continued epigastric pain. Patient has a known large thoracic H/H and was not felt to be at acceptable sugical risk to have this repaired in April 2022 Review of Systems Review of Systems: The patient denies chest pain, palpitations, shortness of breath, dyspnea on exertion, cough, lower extremity swelling, sore throat, fevers, chills, sweats, diarrhea, blood in urine or stool, dysuria, urinary frequency or urgency, lightheadedness, dizziness, headache, memory loss, loss of consciousness, rash, abnormal bruising or bleeding, imbalance, focal or generalized weakness, numbness or tingling in arms or legs, generalized arthralgias or myalgias, back or neck pain, or night sweats. The review of systems is otherwise negative other than for that already noted above, and at least 10 systems have been reviewed. Physical Exam Constitutional: + ill appearing, average body habitus and cooperative Neck: trachea midline, no thyromegaly Respiratory: normal respiratory effort, lungs clear to auscultation Cardiovascular: RRR, no murmur, no edema Gastrointestinal (Abdomen): Inspection/Auscultation: abdomen normal to inspection Percussion/Palpation: + abdomen tender and abdomen soft (Epigastric tenderness to palpation with voluntary guarding); abdomen not rigid, no hepatosplenomegaly, no splenomegaly and no abdominal mass Skin: no rashes, warm and dry Neurologic: PERRL, EOMI, accommodation nl, no face palsy, no dysarthria Psychiatric: A+Ox3, euthymic affect Results & Data Results & Data Vital Signs (Past 12 Hours) Vital Signs Temp Pulse Pulse Resp BP Pulse Ox O2 Del Method 01/14/23 07:30 Room Air 01/14/23 07:38 37.0 C 92 H 18 123/80 98 Room Air 01/13/23 21:49 37.1 C 103 H 18 143/92 H 97 Room Air PG Care Time/CCT Total # of Minutes Spent Total Time Spent with Patient: Total time spent is greater than 50% in coordination of care (as documented) at patient's floor/unit and/or counseling patient: Coding Level of Care Code 76642 SUB INP/OBS CARE 09/01MIN Diagnoses Partial small bowel obstruction K56.600 ICD (implantable cardioverter-defibrillator), single, in situ Z95.810 Restless leg syndrome G25.81 Rheumatoid arthritis M06.041; M06.042 Laterality: bilateral Rheumatoid arthritis location: hand Rheumatoid factor presence: without rheumatoid factor Hypothyroidism E03.9 Hypothyroidism type: acquired Anxiety F41.9 (4) Rheumatoid arthritis Laterality: bilateral Rheumatoid arthritis location: hand Rheumatoid factor presence: without rheumatoid factor Qualified Code(s): M06.041 - Rheumatoid arthritis without rheumatoid factor, right hand; M06.042 - Rheumatoid arthritis without rheumatoid factor, left hand (5) Hypothyroidism Hypothyroidism type: acquired Qualified Code(s): E03.9 - Hypothyroidism, uns pecified
--- NOTE | 2023-01-14 10:15 | Gastrointestinal Consultation ---
Date of Consultation January 14, 2023 Assessment & Plan (1) Hiatal hernia: (2) Abdominal pain: (3) Nausea: Plan Patient is a 82 y.o. female admitted with PSBO, now resolved with persisting epigastric pain and nausea. -Agree with removal of NG per surgery tomorrow as this may be contributing to symptoms of abdominal pain and nausea if tube is coiled. -Known large hiatus hernia, limited role for EGD. -Continue Pantoprazole 40 mg BID. -Can add Carafate 10 ml QID once NG remains clamped or d/c. -Can refer back to surgery for HH, but was not felt an acceptable risk in April of 2022. -Continue supportive care. Thank you for allowing us to participate in the care of this patient. If you have any questions or concerns, please do not hesitate to contact us. History of Present Illness Reason for Consultation: Epigastric pain, nausea, large hiatus hernia Requesting Physician: Elise Trujillo PA-C Attending Physician: Solitario Sage MD History of Present Illness Patient is a 82 yo female with CAD with recent VA status post PCI and ICD placement in [place] in February 2022, adrenal insufficiency, arterial occlusion, CKD3, HLD, chronic systolic CHF, ischemic cardiomyopathy, SNHL, JASON, CTS, cervical radiculopathy, RLS, & chronic hyponatremia admitted with symptoms of epigastric pain, nausea and imaging suggestive of a partial small bowel obstruction. She has been kept NPO with NG decompression although no significant NG output has been noted. Small bowel study yesterday, however, demonstrated resolution of the obstruction. Despite this, she continues with symptoms of epigastric pain and nausea which are now felt more reflective of her large hiatus hernia which was evaluated by GI and thoracic surgery at [facility] [place]. Large hiatus hernia was documented on EGD performed by Dr. Jama as well back in 2018. From review of records, it appears she was not felt to be an acceptable risk for surgical repair of the hernia due to cardiac comorbidities. Currently, she reports ongoing epigastric pain and nausea. Minimal flatus. No bowel moveme nt this morning. Per patient, she is to have NG removed tomorrow. Continues Pantoprazole 40 mg BID. Allergies Allergy/AdvReac Type Severity Reaction Status Date / Time gabapentin AdvReac Intermediate SHAKING, Verified 01/10/23 20:25 JERKING MOVEMENTS benztropine [From Cogentin] AdvReac Shakiness, Verified 01/11/23 08:35 jerking movements metoclopramide [From Reglan] AdvReac Shakiness, Verified 01/11/23 08:35 jerking movements Home Medications Medication Instructions Recorded Confirmed Type lorazepam 0.5 mg tablet 0.5 mg PO Q4H PRN anxiety #20 tabs 04/30/22 01/10/23 Rx prednisone 5 mg tablet 7.5 mg PO DAILY 05/06/22 01/10/23 History levothyroxine 100 mcg tablet 100 mcg PO DAILY #90 tabs 10/15/22 01/10/23 Rx acetaminophen 500 mg oral powder 1,000 mg PO Q6H PRN Pain 11/08/22 01/10/23 History packet (Tylenol Extra Strength) pantoprazole 40 mg tablet,delayed 40 mg PO BID #180 tabs 11/10/22 01/10/23 Rx release rotigotine 2 mg/24 hour 2 mg transdermal DAILY 11/10/22 01/10/23 History transdermal 24 hour patch (Neupro) furosemide 20 mg tablet (Lasix) 20 mg PO DAILY PRN weight gain #90 11/30/22 01/10/23 Rx tabs tramadol 50 mg tablet 50 mg PO TID PRN pain #90 tabs 12/20/22 01/10/23 Rx Patient History Medical History Acid reflux Acute encephalopathy Acute hyponatremia Acute hyponatremia Acute hypoxemic respiratory failure Acute metabolic encephalopathy Acute VA Acute UTI CAD (coronary artery disease) VA in [place] in 02/2022. 1 stent placed (believe LCx, but not sure). 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 Dehydration, mild DVT prophylaxis DVT prophylaxis Dysuria Elevated troponin Hiatal hernia History of Hodgkin's lymphoma S/P RADIATION/CHEMO (2000) History of pelvic fracture Hyperlipidemia Hypertension Hypothyroidism Ischemic cardiomyopathy Mixed stress and urge urinary incontinence Nausea & vomiting On amiodarone therapy Restless leg syndrome Rheumatoid arthritis ON CHRONIC PREDNISONE 7.5MG DAILY Sciatica Scoliosis Stage 3b chronic kidney disease Ventricular tachycardia Surgical History H/O foot surgery 2ND RT TOE REMOVED History of bilateral cataract extraction RIGHT CATARACT EXTRACTION WITH IOL= 04/05/18= MAC SEDATION AT [facility] History of colonoscopy History of gynecologic surgery ANTERIOR AND POSTERIOR REPAIR - colporrhaphy (for pelvic relaxation) History of removal of cyst HEAD (BENIGN) History of tonsillectomy History of tooth extraction History of total knee replacement RT History of urologic surgery URETEROLYSIS- 04/1995 [facility] S/P coronary artery stent placement S/P vaginal hysterectomy Status post right knee replacement Family History Mother , age 80 Cardiac disorder Family history of lung cancer Brother Diabetes Family history of lung cancer Family history of diabetes mellitus Daughter Breast cancer Father , age 57 Cardiac disorder Grandmother Diabetes Aunt Ovarian cancer paternal aunt Grandmother (Paternal) Family history of diabetes mellitus Other Cancer Heart disease No family history of adverse response to anesthesia No family history of bleeding disorder Denies family history of Colon cancer Colorectal cancer Social History Smoking Status: Former smoker Tobacco Type: Cigarettes Cigarettes Per Day: QUIT + 30 YEARS AGO; Second Hand Exposure: No; Do You Dip or Chew Tobacco: No; Hx Alcohol Use: Yes Alcohol type: wine Alcohol Intake Frequency Comment: Social about every three months Hx Substance Use: No Preferred Language: Grenadian Communication Ability: Effective Communication Ability Comment: Non-verbal, confused at this time. 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 [employer] Other Information That Helps Us Care for You: No Feels Safe at Home: Yes Safety Concerns: Feels Safe At This Time Childhood Exposure to Second-Hand Smoke: Yes (parent smoked) Diet: regular Dental Care, Regularly: Yes Sunscreen Use: Yes (occasionally) Assistive Devices: Walker Review of Systems Constitutional: no fever and no chills Respiratory: + dyspnea on exertion; no cough and no dyspnea Cardiovascular: no chest pain and no palpitations Gastrointestinal: as per Subjective / HPI Physical Exam Constitutional: well developed and well nourished Eyes: EOM intact bilaterally Neck: normal visual inspection Respiratory: normal respiratory effort, lungs clear to auscultation Cardiovascular: Rate/Rhythm: regular rate and regular rhythm Gastrointestinal (Abdomen): Inspection/Auscultation: + hypoactive bowel sounds; abdomen not distended Percussion/Palpation: + abdomen tender and abdomen soft; no guarding and abdomen not rigid Psychiatric: A+Ox3, euthymic affect Results & Data Vital Signs (Past 12 Hours) Vital Signs Temp Pulse Resp BP Pulse Ox O2 Del Method 01/14/23 07:30 Room Air 01/14/23 07:38 37.0 C 92 H 18 123/80 98 Room Air Diagnostic Findings Laboratory Results WBC 11.26 K/ul (4.8-10.8) H 01/14/23 05:41 RBC 4.24 M/uL (4.20-5.40) 01/14/23 05:41 Hgb 11.7 g/dl (12.0-16.0) L 01/14/23 05:41 Hct 36.3 % (37.0-47.0) L 01/14/23 05:41 MCV 85.6 fL (80.0-100.0) 01/14/23 05:41 MCH 27.6 pg (25.0-34.0) 01/14/23 05:41 MCHC 32.2 g/dL (32.0-36.0) 01/14/23 05:41 RDW Std Deviation 50.8 fL (36.4-46.3) H 01/14/23 05:41 RDW Coeff of Sachin 16.5 % (11.5-14.5) H 01/14/23 05:41 Plt Count 208 K/uL (130-400) 01/14/23 05:41 MPV 8.8 fL (9.4-12.4) L 01/14/23 05:41 Immature Gran % (Auto) 0.5 % 01/14/23 05:41 Neut % (Auto) 62.8 % 01/14/23 05:41 Lymph % (Auto) 24.6 % 01/14/23 05:41 Young % (Auto) 10.4 % 01/14/23 05:41 Eos % (Auto) 1.5 % 01/14/23 05:41 Baso % (Auto) 0.2 % 01/14/23 05:41 Neut # (Auto) 7.07 K/uL (1.40-6.50) H 01/14/23 05:41 Lymph # (Auto) 2.77 K/uL (1.2-3.4) 01/14/23 05:41 Young # (Auto) 1.17 K/uL (0.11-0.59) H 01/14/23 05:41 Eos # (Auto) 0.17 K/uL (0-0.50) 01/14/23 05:41 Baso # (Auto) 0.02 K/uL (0-0.2) 01/14/23 05:41 Immature Gran # (Auto) 0.06 K/uL (0.01-0.20) 01/14/23 05:41 Sodium 136 mmol/L (136-145) 01/14/23 05:41 Potassium 3.4 mmol/L (3.5-5.1) L 01/14/23 05:41 Chloride 106 mmol/L (98-107) 01/14/23 05:41 Carbon Dioxide 22 mmol/L (21-32) 01/14/23 05:41 Anion Gap 8 (3-11) 01/14/23 05:41 BUN 15 mg/dl (6-23) 01/14/23 05:41 Creatinine 1.15 mg/dl (0.6-1.2) 01/14/23 05:41 Est Cr Clr Drug Dosing 27.9 ml/min 01/14/23 05:41 Est GFR ( Amer) 52.0 ml/min 01/14/23 05:41 Est GFR (Non-Af Amer) 44.9 ml/min 01/14/23 05:41 BUN/Creatinine Ratio 13.0 (10-20) 01/14/23 05:41 Glucose 105 mg/dl (70-99(Fasting)) H 01/14/23 05:41 POC Glucose 78 mg/dl (70-99) 01/12/23 10:04 Calcium 8.3 mg/dl (8.6-10.3) L 01/14/23 05:41 Magnesium 1.8 mg/dl (1.7-2.4) 01/14/23 05:41 Total Bilirubin 1.0 mg/dl (0.2-1.0) 01/13/23 06:02 AST 22 U/L (13-39) 01/13/23 06:02 ALT 9 U/L (7-52) 01/13/23 06:02 Alkaline Phosphatase 47 U/L (34-104) 01/13/23 06:02 Total Protein 6.8 gm/dl (6.0-8.3) 01/13/23 06:02 Albumin 3.7 gm/dl (3.4-5.0) 01/13/23 06:02 Globulin 3.1 gm/dl (2.5-4.0) 01/13/23 06:02 Albumin/Globulin Ratio 1.2 (0.9-2) 01/13/23 06:02 Lipase 15 U/L (11-82) 01/10/23 18:11 Urine Color Yellow 01/12/23 09:01 Urine Appearance Clear (Clear) 01/12/23 09:01 Urine pH 5.5 (4.5-7.5) 01/12/23 09:01 Ur Specific [place] 1.017 (1.000-1.030) 01/12/23 09:01 Urine Protein Negative (Negative) 01/12/23 09:01 Urine Glucose (UA) Negative (Negative) 01/12/23 09:01 Urine Ketones 2+ (Negative) H 01/12/23 09:01 Urine Blood 1+ (Negative) H 01/12/23 09:01 Urine Nitrite Negative (Negative) 01/12/23 09:01 Urine Bilirubin Negative (Negative) 01/12/23 09:01 Urine Urobilinogen Negative (Negative) 01/12/23 09:01 Ur Leukocyte Esterase Negative (Negative) 01/12/23 09:01 Urine WBC (Auto) 1-5 /hpf (0-5) 01/12/23 09:01 Urine RBC (Auto) 0-4 /hpf (0-4) 01/12/23 09:01 U Hyaline Cast (Auto) 0 /lpf (0-5) 01/12/23 09:01 U Epithel Cells (Auto) 0-5 /lpf (0-5) 01/12/23 09:01 Urine Bacteria (Auto) Negative (Negative) 01/12/23 09:01 SARS-CoV-2, RNA, NAAT NEGATIVE (NEGATIVE) 01/10/23 18:12 Impressions Abdomen/Pelvis CT 01/10/23 19:27 Exam(s): CT ABDOMEN + PELVIS With Contrast IV Amt: 81 ml optiray 320 EXAM: CT Abdomen and Pelvis With Intravenous Contrast CLINICAL HISTORY: Reason for exam: abd pain vomittting. TECHNIQUE: Axial computed tomography images of the abdomen and pelvis with intravenous contrast. CTDI is 13.94 mGy and DLP is 547.85 mGy-cm. Automated exposure control was utilized for the study. A dose lowering technique was utilized adhering to the principles of ALARA. CONTRAST: Patient received 81 ml optiray 320 of IV contrast COMPARISON: 04/27/2022 FINDINGS: Lung bases: Unremarkable. No mass. No consolidation. Mediastinum: Hiatal hernia with half the stomach in the chest is unchanged from priors body. ABDOMEN: Liver: Unremarkable. No mass. Gallbladder and bile ducts: Unremarkable. No calcified stones. No ductal dilation. Pancreas: Unremarkable. No mass. No ductal dilation. Spleen: Unremarkable. No splenomegaly. Adrenals: Unremarkable. No mass. Kidneys and ureters: Atrophic and nonfunctioning left kidney. Stomach and bowel: Dilated proximal small bowel loops with formed fecal material. There is a transition zone with edematous mid small bowel within the mid abdomen best seen on coronal images 28-36. PELVIS: Appendix: No findings to suggest acute appendicitis. Bladder: Unremarkable. No mass. Reproductive: Unremarkable as visualized. ABDOMEN and PELVIS: Intraperitoneal space: Within the root of the mesentery, partially calcified soft tissue nodule measuring 2.3 cm craniocaudal is unchanged. No free air. No significant fluid collection. Bones/joints: No acute fracture. No dislocation. Soft tissues: See above. Vasculature: Unremarkable. No abdominal aortic aneurysm. Lymph nodes: Unremarkable. No enlarged lymph nodes. IMPRESSION: Dilated proximal small bowel loops with formed fecal material consistent with a partial small bowel obstruction. Transition zone in the mid abdomen with edematous small bowel. Electronically signed by: Bradley Melissa M.D. 01/10/23 21:05 PM Small Bowel X-Ray 01/13/23 09:23 [place] small bowel follow through CLINICAL HISTORY: 82 years-old Female with SBO. Acute generalized abdominal pain with reported small bowel obstruction TECHNIQUE: Oral barium was administered to the patient and serial radiographs of the abdomen were performed. COMPARISON STUDY: KUB 01/13/2023, CT 01/10/2023 FLUOROSCOPY TIME: 0 minutes. FINDINGS: Refueling [place] radiograph of the abdomen demonstrates mildly dilated loops of small bowel measuring up to 3 cm. cardiomegaly with partially imaged pacer/AICD lead. Distal tip of enteric tube projects over a partially intrathoracic stomach with hiatal hernia. Surgical clips of the abdomen. Lumbar levoscoliosis. Only 250 mL of Optiray 320 was administered secondary to patient discomfort. Upon the administration of oral barium contrast through the enteric tube, there is prompt opacification of the gastric lumen and proximal small bowel. Images were obtained through 30 minutes which demonstrated mildly dilated contrast loops of small bowel with expected distal small bowel progression Transit to the large bowel occurred at approximately 2 hrs. Mild colonic diverticulosis. The terminal ileum appears unremarkable. IMPRESSION: 1. Mild small bowel dilation without obstruction. 2. Hiatal hernia with partially thoracic stomach. ACT 112: Negative or not required by law. The above report was generated using voice recognition software. It may contain grammatical, syntax or spelling errors. Electronically signed by: Ted Wesley M.D. 01/13/2023 12:51 PM PG Care Time/CCT Total # of Minutes Spent Total Time Spent with Patient: Total time spent is greater than 50% in coordination of care (as documented) at patient's floor/unit and/or counseling patient: Coding Level of Care Code 51045 INT INP/OBS CARE 3/75MIN Diagnoses Hiatal hernia K44.9 Abdominal pain R10.9 Nausea R11.0
--- NOTE | 2023-01-14 10:36 | XRay Report ---
KUB HISTORY: Status post placement of an enteric tube check NGT placement COMPARISON: Small bowel follow-through 01/13/2023, CT 01/10/2023 FINDINGS: Enteric contrast is noted within loops of large bowel with partial emptying compared to yes terday's study. Hiatal hernia. Distal tip of enteric tube projects over the left lower chest. Cardiom egaly with pacer/ICD lead. No renal calculi. No ureteral calculi. No pneumoperitoneum or pneumatosis . Sigmoidal scoliosis of the spine. No fracture. IMPRESSION: 1. Distal tip of enteric tube projects of the left lower chest, likely within the partially intrathor acic stomach associated with the hiatal hernia. 2. Partial evacuation of the enteric contrast which is predominantly located within the large bowel. ACT 112: Negative or not required by law. The above report was generated using voice recognition software. It may contain grammatical, syntax o r spelling errors. Electronically signed by: Ted Wesley M.D. 01/14/2023 10:35 AM
[2023-01-14] MEDS: PANTOprazole 40 MG in SYRINGE 0 ML IV SCH ×3 (11:09→19:48)
[2023-01-14] MEDS: ACETAMINOPHEN 1,000 MG/100 ML VIAL IV PRN ×2 (11:17→19:48)
[2023-01-14] MEDS: SUCRALFATE 1 GM/10 ML UDC PO SCH ×3 (11:50→19:51)
[2023-01-14] MEDS: ROTIGOTINE PATCH TD SCH (19:51)
[2023-01-15] MEDS: MoRPHine SULFATE 2 MG/ML CARP IV PRN (00:10)
[2023-01-15] MEDS: D5W AND NSS 1,000 ML IV SCH (00:23)
[2023-01-15 07:00] LABS: Basophils # (auto) 0.02 K/uL (0-0.2); Basophils % (auto) 0.3 %; Eosinophils # (auto) 0.22 K/uL (0-0.50); Eosinophils % (auto) 2.8 %; Hematocrit (blood only) 36.8 % (37.0-47.0); Hemoglobin 11.7 g/dl (12.0-16.0); Immature Granulocytes # (auto) 0.05 K/uL (0.01-0.20); Immature Granulocytes % (auto) 0.6 %; Lymphocytes # (auto) 3.03 K/uL (1.2-3.4); Lymphocytes % (auto) 38.5 %; Mean Corpuscular Hemoglobin 27.5 pg (25.0-34.0); Mean Corpuscular Hgb Conc 31.8 g/dL (32.0-36.0); Mean Corpuscular Volume 86.6 fL (80.0-100.0); Mean Platelet Volume 9.3 fL (9.4-12.4); Monocytes # (auto) 0.83 K/uL (0.11-0.59); Monocytes % (auto) 10.5 %; Neutrophils # (auto) 3.72 K/uL (1.40-6.50); Neutrophils % (auto) 47.3 %; Platelet Count 205 K/uL (130-400); RDW Coefficient of Variation 16.6 % (11.5-14.5); RDW Standard Deviation 52.1 fL (36.4-46.3); Red Blood Count 4.25 M/uL (4.20-5.40); White Blood Count 7.87 K/ul (4.8-10.8)
[2023-01-15] MEDS: PANTOprazole 40 MG in SYRINGE 0 ML IV SCH ×2 (07:40→21:22)
[2023-01-15] MEDS: SODIUM CHLORIDE 0.65% NA SOLN 45 ML (OCEAN) NAE SCH ×4 (07:40→21:24)
[2023-01-15] MEDS: HEPARIN SOD 5,000 UNIT/0.5 ML VIAL SQ SCH ×2 (07:40→21:22)
[2023-01-15] MEDS: ACETAMINOPHEN 1,000 MG/100 ML VIAL IV PRN ×2 (07:47→21:31)
--- NOTE | 2023-01-15 08:15 | Hospitalist Progress Note ---
Date of Service January 15, 2023 Assessment & Plan (1) Partial small bowel obstruction: Plan: Acute and resolved - NG was clamped and then removed yesterday and she has had no nausea or vomiting - Started clear liquid diet and advanced to full at lunch and then low fiber for dinner - IV Phenergan as needed (zofran increased restless leg syndrome) - General Surgery following and stated if she is tolerating she can be discharged home tomorrow - GI evaluated 01/14 per surgery for persistent nausea and epigastric pain - Encouraged up and OOB and limit narcotic pain meds - Continue PPI IV increased to BID - GI also added carafate - Hope to discharge patient to home tomorrow (2) ICD (implantable cardioverter-defibrillator), single, in situ: Plan: Chronic and stable - CAD s/p acute LCx [place] and PCI (in [place] on 02/25/2022), Ventricular Arrhythmia s/p Emergent Cardioversion, Ischemic Cardiomyopathy s/p Single Chamber ICD - Last Echo 12/09/22 - LVH, LVEF 25-30%, severe inferolateral inferior wall hypokinesis, mild MR - Follows with Jhonatan Scott PA-C per last OV records stated - that she had interrogation of the AICD in June 2022 and had all ventricular therapies have been turned off per patient's wishes. - Per prior documentation, pt is planning to stop all of her medications with the exception of Lasix as needed for shortness of breath, lorazepam, and morphine for comfort measures - Unclear when she is planning to do this ?? (3) Restless leg syndrome: Plan: Chronic, unstable - daughter will bring in her own Neupro patch (daughter asking to increase patch - will defer to PCP since we do not have that medication here) - Zofran given in ER seemed to increased restless leg syndrome (4) Rheumatoid arthritis: Plan: Chronic stable - Holding prednisone 7.5 mg p.o. daily - Hold on stress dose steroids, due to GI disturbance, however, would have a low threshold for adding hydrocortisone IV if adrenal insufficiency develops (5) Hypothyroidism: Plan: Chronic stable - Continue Levothyroxine 100mcg daily - last tsh 3.68 in November 2022 (6) Anxiety: Plan: Chronic stable - Continue Lorazepam 0.5mg q 4H as needed Plan Heparin is on board for DVT ppx. Repeat labs in AM including CBC and BMP. diet advanced to low fiber for dinner Admission and Anticipated Discharge Date Admission Date: January 10, 2023 Subjective Patient seen this afternoon, she was awake sitting up in bed and states she is feeling better since the NGT has been removed. She is tolerating clear liquids. She is passing flatus and also has had BMs. She has no further nausea and has not had any vomiting. She did complain of some SOB this AM and nursing felt she had some diminished lung sounds, thus we ordered a CXR and stopped the IVFs and started clear liquids this AM. She was also given a dose of lasix 20mg and Kdur 20meq Review of Systems Review of Systems: The patient denies chest pain, palpitations, shortness of breath, dyspnea on exertion, cough, lower extremity swelling, sore throat, fevers, chills, sweats, diarrhea, blood in urine or stool, dysuria, urinary frequency or urgency, lightheadedness, dizziness, headache, memory loss, loss of consciousness, rash, abnormal bruising or bleeding, imbalance, focal or generalized weakness, numbness or tingling in arms or legs, generalized arthralgias or myalgias, back or neck pain, or night sweats. The review of systems is otherwise negative other than for that already noted above, and at least 10 systems have been reviewed. Physical Exam Constitutional: + well hydrated, average body habitus and cooperative; no acute distress Neck: trachea midline, no thyromegaly Respiratory: able to speak in complete sentences; no respiratory distress and no labored breathing Auscultation: lungs clear to auscultation bilaterally, + diminished lung sounds and + crackles fine crackles in bases Cardiovascular: RRR, no murmur, no edema Gastrointestinal (Abdomen): Inspection/Auscultation: abdomen normal to inspection Percussion/Palpation: + abdomen tender and abdomen soft (Epigastric tenderness to palpation with voluntary guarding); abdomen not rigid, no hepatosplenomegaly, no splenomegaly and no abdominal mass Skin: no rashes, warm and dry Neurologic: PERRL, EOMI, accommodation nl, no face palsy, no dysarthria Psychiatric: A+Ox3, euthymic affect Results & Data Results & Data Vital Signs (Past 12 Hours) Vital Signs Temp Pulse Resp BP Pulse Ox O2 Del Method 01/14/23 22:24 36.6 C 85 18 105/70 98 Room Air Laboratory Results Abnormal lab results 01/15/23 01/15/23 Range/Units 05:39 05:39 Hgb 11.7 L (12.0-16.0) g/dl Hct 36.8 L (37.0-47.0) % MCHC 31.8 L (32.0-36.0) g/dL RDW Std Deviation 52.1 H (36.4-46.3) fL RDW Coeff of Sachin 16.6 H (11.5-14.5) % MPV 9.3 L (9.4-12.4) fL [place] # (Auto) 0.83 H (0.11-0.59) K/uL Procalcitonin 0.98 H (0-0.5) ng/ml Diagnostic Findings Chest X-Ray 01/15/23 08:09 XR chest 2V PA/lateral CLINICAL HISTORY: Shortness of breath. COMPARISON STUDY: Chest radiograph April 27, 2022. FINDINGS: A left subclavian pacer/AICD is in place. Cardiomegaly is noted. No evidence for pulmonary edema. There is no consolidation to suggest pneumonia. Suspected trace bilateral pleural effusions. A moderate sized hiatal hernia is again noted. IMPRESSION: 1. Cardiomegaly without overt pulmonary edema. 2. Suspected trace bilateral pleural effusions. ACT 112: Negative or not required by law. Electronically signed by: Wally Nichols M.D. 01/15/2023 9:23 AM PG Care Time/CCT Total # of Minutes Spent Total Time Spent with Patient: Total time spent is greater than 50% in coordination of care (as documented) at patient's floor/unit and/or counseling patient: Coding Level of Care Code 26390 SUB INP/OBS CARE 25MIN Diagnoses Partial small bowel obstruction K56.600 ICD (implantable cardioverter-defibrillator), single, in situ Z95.810 Restless leg syndrome G25.81 Rheumatoid arthritis M06.041; M06.042 Laterality: bilateral Rheumatoid arthritis location: hand Rheumatoid factor presence: without rheumatoid factor Hypothyroidism E03.9 Hypothyroidism type: acquired Anxiety F41.9 (4) Rheumatoid arthritis Laterality: bilateral Rheumatoid arthritis location: hand Rheumatoid factor presence: without rheumatoid factor Qualified Code(s): M06.041 - Rheumatoid arthritis without rheumatoid factor, right hand; M06.042 - Rheumatoid arthritis without rheumatoid factor, left hand (5) Hypothyroidism Hypothyroidism type: acquired Qualified Code(s): E03.9 - Hypothyroidism, unspecified
--- NOTE | 2023-01-15 09:25 | XRay Report ---
XR chest 2V PA/lateral CLINICAL HISTORY: Shortness of breath. COMPARISON STUDY: Chest radiograph April 27, 2022. FINDINGS: A left subclavian pacer/AICD is in place. Cardiomegaly is noted. No evidence for pulmonary edema. There is no consolidation to suggest pneumonia. Suspected trace bilateral pleural effusions. A moderate sized hiatal hernia is again noted. IMPRESSION: 1. Cardiomegaly without overt pulmonary edema. 2. Suspected trace bilateral pleural effusions. ACT 112: Negative or not required by law. Electronically signed by: Wally Nichols M.D. 01/15/2023 9:23 AM
[2023-01-15] MEDS: SUCRALFATE 1 GM/10 ML UDC PO SCH ×4 (10:06→21:22)
[2023-01-15] MEDS ORDERED: FUROSEMIDE 20 MG TAB PO ONE (10:09)
[2023-01-15] MEDS ORDERED: POTASSIUM CHLORIDE 10 MEQ TABCR PO STA (10:09)
--- NOTE | 2023-01-15 10:36 | Surgery Progress Note ---
Date of Service January 15, 2023 Assessment & Plan (1) Partial small bowel obstruction: Plan: She did have contrast passed through to her colon on her small bowel follow- through and is tolerating liquids Advance her diet as tolerated It seems that her bowel obstruction has resolved She does have a large hiatal hernia for which she is going to follow-up with Dr. Edmondson as an outpatient and certainly could be contributing to her abdominal symptoms If she tolerates her diet today she can be discharged from a surgical standpoint later today versus tomorrow Surgery will sign off at this time, please call with any questions or concerns (2) Hiatal hernia: Admission and Anticipated Discharge Date Admission Date: January 10, 2023 Subjective Patient seen and examined. She is tolerating liquids. She states she had a little bit of nausea yesterday with no emesis. She is having bowel movements. Minimal epigastric abdominal pain. Review of Systems Constitutional: no fever and no chills Physical Exam Constitutional: WD/WN, vitals as above Gastrointestinal (Abdomen): Inspection/Auscultation: abdomen normal to inspection; abdomen not distended Percussion/Palpation: + abdomen tender (Mild epigastric) and abdomen soft; no guarding, abdomen not rigid and no hernia Results & Data Vital Signs (Past 12 Hours) Vital Signs Temp Pulse Resp BP Pulse Ox O2 Del Method 01/15/23 08:24 36.4 C L 93 H 16 144/99 H 98 Room Air 01/15/23 08:23 Room Air PG Care Time/CCT Total # of Minutes Spent Total Time Spent with Patient: Total time spent is greater than 50% in coordination of care (as documented) at patient's floor/unit and/or counseling patient: Coding Level of Care Code 62077 SUB INP/OBS CARE 1/25MIN Diagnoses Partial small bowel obstruction K56.600 Hiatal hernia K44.9
[2023-01-15] MEDS: ROTIGOTINE PATCH TD SCH (21:22)
[2023-01-16] MEDS: MoRPHine SULFATE 2 MG/ML CARP IV PRN (01:28)
[2023-01-16] MEDS ORDERED: MoRPHine SULFATE IR 15 MG TAB (IMMEDIATE RELEASE) PO STA (01:57)
[2023-01-16 08:31] LABS: BUN Creatinine Ratio 15.3 (10-20); Calcium 8.5 mg/dl (8.6-10.3); Creatinine Clr Calc Pharmacy 24.5 ml/min; Est GFR (African American) 44.5 ml/min; Est GFR (Non-African American) 38.4 ml/min; Potassium 3.4 mmol/L (3.5-5.1)
[2023-01-16] MEDS ORDERED: PANTOprazole 40 MG TAB PO SCH (09:00)
[2023-01-16] MEDS: SUCRALFATE 1 GM/10 ML UDC PO SCH ×3 (12:46→17:42)
[2023-01-16] MEDS: HEPARIN SOD 5,000 UNIT/0.5 ML VIAL SQ SCH (12:46)
[2023-01-16] MEDS: SODIUM CHLORIDE 0.65% NA SOLN 45 ML (OCEAN) NAE SCH ×3 (12:46→17:41)
[2023-01-16] MEDS ORDERED: POTASSIUM CHLORIDE CRTAB 20 MEQ TABCR PO STA (13:45)
[2023-01-16] MEDS ORDERED: PROCHLORPERAZINE MALEATE 5 MG TAB PO PRN (13:58)
[2023-01-16] MEDS ORDERED: LORazepam 0.5 MG TAB PO PRN (13:59)
--- NOTE | 2023-01-16 15:29 | Discharge Summary ---
Date of Service January 16, 2023 Admission HPI Per Admitting Provider The patient is an 82-year-old female with a past medical history including TMJ, mitral regurgitation, ventricular arrhythmia, ICD placement has been deactivated, QT prolongation, [place] last year, adrenal insufficiency, arterial insufficiency of lower extremity, hyperlipidemia, ischemic cardiomyopathy, CAD, CKD stage III, RLS, hyperlipidemia, hypertension, and rheumatoid arthritis. The patient reports that she is going with a friend to eat Burmese food around 12:00 today, and by 2:00 had developed the acute symptoms of abdominal pain, intractable nausea and vomiting which she reports was at least 15 times today. While in the ED she did vomit a significant volume of green bilious material. CT scan of abdomen and pelvis showed a partial small bowel obstruction with transition zone in the mid abdomen region, associated with edematous small bowel. The patient did not have any episodes of diarrhea. An NG tube was attempted to be placed in ED, but was unsuccessful. Principal Diagnosis SBO - resolved nausea Discharge Exam GENERAL: 82 yo well-developed, well-nourished WF. AAOx4. Appears uncomfortable but in NAD. LUNGS: Clear to auscultation bilaterally w/o w/r/r CARDIOVASCULAR: Regular rate and rhythm ABDOMEN: Soft w/ normoactive BS throughout. No rigidity or guarding. Mild TTP of epigastrium and RUQ. No masses appreciated. EXTREMITIES: No edema. Non-tender. Peripheral pulses +2/4. Discharge Data Allergies Allergy/AdvReac Type Severity Reaction Status Date / Time gabapentin AdvReac Intermediate SHAKING, Verified 01/10/23 20:25 JERKING MOVEMENTS benztropine [From Cogentin] AdvReac Shakiness, Verified 01/11/23 08:35 jerking movements metoclopramide [From Reglan] AdvReac Shakiness, Verified 01/11/23 08:35 jerking movements Consultations 01/10/23 21:09 ED Decision to Admit Stat 01/10/23 22:15 Consult General Surgery Routine 01/14/23 09:20 Consult Gastroenterology Routine Ordered Studies Abdomen/Pelvis CT 01/10/23 19:27 Exam(s): CT ABDOMEN + PELVIS With Contrast IV Amt: 81 ml optiray 320 EXAM: CT Abdomen and Pelvis With Intravenous Contrast CLINICAL HISTORY: Reason for exam: abd pain vomittting. TECHNIQUE: Axial computed tomography images of the abdomen and pelvis with intravenous contrast. CTDI is 13.94 mGy and DLP is 547.85 mGy-cm. Automated exposure control was utilized for the study. A dose lowering technique was utilized adhering to the principles of ALARA. CONTRAST: Patient received 81 ml optiray 320 of IV contrast COMPARISON: 04/27/2022 FINDINGS: Lung bases: Unremarkable. No mass. No consolidation. Mediastinum: Hiatal hernia with half the stomach in the chest is unchanged from priors body. ABDOMEN: Liver: Unremarkable. No mass. Gallbladder and bile ducts: Unremarkable. No calcified stones. No ductal dilation. Pancreas: Unremarkable. No mass. No ductal dilation. Spleen: Unremarkable. No splenomegaly. Adrenals: Unremarkable. No mass. Kidneys and ureters: Atrophic and nonfunctioning left kidney. Stomach and bowel: Dilated proximal small bowel loops with formed fecal material. There is a transition zone with edematous mid small bowel within the mid abdomen best seen on coronal images 28-36. PELVIS: Appendix: No findings to suggest acute appendicitis. Bladder: Unremarkable. No mass. Reproductive: Unremarkable as visualized. ABDOMEN and PELVIS: Intraperitoneal space: Within the root of the mesentery, partially calcified soft tissue nodule measuring 2.3 cm craniocaudal is unchanged. No free air. No significant fluid collection. Bones/joints: No acute fracture. No dislocation. Soft tissues: See above. Vasculature: Unremarkable. No abdominal aortic aneurysm. Lymph nodes: Unremarkable. No enlarged lymph nodes. IMPRESSION: Dilated proximal small bowel loops with formed fecal material consistent with a partial small bowel obstruction. Transition zone in the mid abdomen with edematous small bowel. Electronically signed by: Bradley Melissa M.D. 01/10/23 21:05 PM KUB X-Ray 01/10/23 22:35 KUB HISTORY: Status post placement of an enteric tube NGT placement COMPARISON: CT 01/10/2023 FINDINGS: Lower abdomen and pelvis are excluded from [id number]. Cardiomegaly with left subclavian pacer/ICD. Right abdominal surgical clips. Distended stomach and small bowel loops better seen on comparison CT. Enteric tube is loo ped upon itself within the expected location of the intrathoracic stomach with distal tip projected superiorly. Moderate sized hiatal hernia. IMPRESSION: Enteric tube is coiled upon itself with distal tip projected superiorly within the chest, likely within the partially intrathoracic stomach/hiatal hernia. ACT 112: Negative or not required by law. The above report was generated using voice recognition software. It may contain grammatical, syntax or spelling errors. Electronically signed by: Ted Wesley M.D. 01/11/2023 6:58 AM KUB X-Ray 01/11/23 09:00 KUB HISTORY: Status post placement of an enteric tube COMPARISON: KUB of same day, CT 01/10/2023 FINDINGS: Cardiomegaly with partially imaged pacer/AICD lead. Surgical clips of the abdomen. Persistent small bowel dilation. Distended contrast-filled urinary bladder. Hiatal hernia. Partially imaged enteric tube projects over the left lower chest No renal calculi. No ureteral calculi. No pneumoperitoneum or pneumatosis. No fracture. IMPRESSION: 1. Hiatal hernia with partially imaged distal tip of enteric tube projecting over the left lower chest, likely within the intrathoracic stomach. 2. Persistent small bowel dilation. ACT 112: Negative or not required by law. The above report was generated using voice recognition software. It may contain grammatical, syntax or spelling errors. Electronically signed by: Ted eWsley M.D. 01/11/2023 9:40 AM KUB X-Ray 01/13/23 08:47 KUB CLINICAL HISTORY: Follow up small bowel obstruction. COMPARISON STUDY: CT of the abdomen and pelvis January 10, 2023. KUB January 11, 2023. FINDINGS: Lumbar spine levoscoliosis is incidentally noted. The tip of the nasogastric tube projects over the left lower mediastinum, likely within the intrathoracic portion of the stomach. Small bowel dilatation has improved. Single loop of mildly dilated small bowel measures 3.2 cm in caliber. IMPRESSION: 1. Mild small bowel dilatation, improved since prior examination. 2. Hiatal hernia. Tip of nasogastric tube likely within the intrathoracic portion of the stomach. ACT 112: Negative or not required by law. Electronically signed by: Wally Nichols M.D. 01/13/2023 9:43 AM Small Bowel X-Ray 01/13/23 09:23 FL small bowel follow through CLINICAL HISTORY: 82 years-old Female with SBO. Acute generalized abdominal pain with reported small bowel obstruction TECHNIQUE: Oral barium was administered to the patient and serial radiographs of the abdomen were performed. COMPARISON STUDY: KUB 01/13/2023, CT 01/10/2023 FLUOROSCOPY TIME: 0 minutes. FINDINGS: Starch Treating Assistant radiograph of the abdomen demonstrates mildly dilated loops of small bowel measuring up to 3 cm. cardiomegaly with partially imaged pacer/AICD lead. Distal tip of enteric tube projects over a partially intrathoracic stomach with hiatal hernia. Surgical clips of the abdomen. Lumbar levoscoliosis. Only 250 mL of Optiray 320 was administered secondary to patient discomfort. Upon the administration of oral barium contrast through the enteric tube, there is prompt opacification of the gastric lumen and proximal small bowel. Images were obtained through 30 minutes which demonstrated mildly dilated contrast loops of small bowel with expected distal small bowel progression Transit to the large bowel occurred at approximately 2 hrs. Mild colonic diverticulosis. The terminal ileum appears unremarkable. IMPRESSION: 1. Mild small bowel dilation without obstruction. 2. Hiatal hernia with partially thoracic stomach. ACT 112: Negative or not required by law. The above report was generated using voice recognition software. It may contain grammatical, syntax or spelling errors. Electronically signed by: Ted Wesley M.D. 01/13/2023 12:51 PM KUB X-Ray 01/14/23 09:19 KUB HISTORY: Status post placement of an enteric tube check NGT placement COMPARISON: Small bowel follow-through 01/13/2023, CT 01/10/2023 FINDINGS: Enteric contrast is noted within loops of large bowel with partial emptying compared to yesterday's study. Hiatal hernia. Distal tip of enteric tube projects over the left lower chest. Cardiomegaly with pacer/ICD lead. No renal calculi. No ureteral calculi. No pneumoperitoneum or pneumatosis. Sigmoidal scoliosis of the spine. No fracture. IMPRESSION: 1. Distal tip of enteric tube projects of the left lower chest, likely within the partially intrathoracic stomach associated with the hiatal hernia. 2. Partial evacuation of the enteric contrast which is predominantly located within the large bowel. ACT 112: Negative or not required by law. The above report was generated using voice recognition software. It may contain grammatical, syntax or spelling errors. Electronically signed by: Ted Wesley M.D. 01/14/2023 10:35 AM Chest X-Ray 01/15/23 08:09 XR chest 2V PA/lateral CLINICAL HISTORY: Shortness of breath. COMPARISON STUDY: Chest radiograph April 27, 2022. FINDINGS: A left subclavian pacer/AICD is in place. Cardiomegaly is noted. No evidence for pulmonary edema. There is no consolidation to suggest pneumonia. Suspected trace bilateral pleural effusions. A moderate sized hiatal hernia is again noted. IMPRESSION: 1. Cardiomegaly without overt pulmonary edema. 2. Suspected trace bilateral pleural effusions. ACT 112: Negative or not required by law. Electronically signed by: Wally Nichols M.D. 01/15/2023 9:23 AM US gallbladder CLINICAL HISTORY: abd pain and nausea TECHNIQUE: Multiple real-time sonographic images of the right upper quadrant were obtained. Comparison: Comparison is made to gallbladder ultrasound 03/19/2022 FINDINGS: The liver is diffusely homogenous with normal contour and echogenicity. No focal mass lesions are seen. No intrahepatic ductal dilatation is seen. No gallstones or sludge are identified within the gallbladder. The gallbladder wall is not thickened. There is no pericholecystic fluid present. A sonographic Guido's sign was not elicited by the art studio teacher. The common duct measures 0 .30 cm in diameter at the level of the hepatic artery. The visualized portions of the pancreas appear normal. The right kidney shows normal echogenicity, cortical thickness and renal contour. The right kidney shows no evidence of hydronephrosis or mass. No ascites or free fluid is seen in Goncalves's pouch. Incidental note is made of a right pleural effusion. IMPRESSION: Unremarkable right upper quadrant ultrasound. ACT 112: Negative or not required by law. Electronically signed by: Ray Farooq M.D. 01/16/2023 4:48 PM Dictated:01/16/23 1646 Transcribed: 01/16/23 1646 Hospital Course (1) Partial small bowel obstruction: Acute and resolved - NG was clamped and then removed yesterday and she has had no nausea or vomiting - Started clear liquid diet and advanced to full at lunch and then low fiber for dinner - IV Phenergan as needed (zofran increased restless leg syndrome) - General Surgery followed patient throughout stay, nonop conservative management advised/followed and SBO resolved - GI evaluated 01/14 per surgery for persistent nausea and epigastric pain - encouraged NGT removal which was done on 01/15 and added carafate - Continue PPI IV increased to BID and transitioned to oral - Pt continues to endorse nausea and epigastric pain - nausea worse after eating, RUQ ultrasound ordered to exclude underlying GB pathology - RUQ is unremarkable (2) ICD (implantable cardioverter-defibrillator), single, in situ: Chronic and stable - CAD s/p acute [place]x [place] and PCI (in [place] on 02/25/2022), Ventricular Arrhythmia s/p Emergent Cardioversion, Ischemic Cardiomyopathy s/p Single Chamber ICD - Last Echo 12/09/22 - LVH, LVEF 25-30%, severe inferolateral inferior wall hypokinesis, mild MR - Follows with Jhonatan Scott PA-C per last OV records stated - that she had interrogation of the AICD in June 2022 and had all ventricular therapies have been turned off per patient's wishes. - Per prior documentation, pt is planning to stop all of her medications with the exception of Lasix as needed for shortness of breath, lorazepam, and morphine for comfort measures - Unclear when she is planning to do this ?? (3) Restless leg syndrome: Chronic, unstable - daughter will bring in her own Neupro patch (daughter asking to increase patch - will defer to PCP since we do not have that medication here) - Zofran given in ER seemed to increased restless leg syndrome (4) Rheumatoid arthritis: Chronic stable - Holding prednisone 7.5 mg p.o. daily - Hold on stress dose steroids, due to GI disturbance, however, would have a low threshold for adding hydrocortisone IV if adrenal insufficiency develops - Resume daily Prednisone to start 01/17 (5) Hypothyroidism: Chronic stable - Levothyroxine 100mcg held while NPO - last tsh 3.68 in November 2022 - Resume daily Levothyroxine 01/17 (6) Anxiety: Chronic stable - Continue Lorazepam 0.5mg q8h prn Plan Patient lost IV access on 01/16 and refused a new one. Meds transitioned to oral. Resume Levothyroxine and daily Prednisone on 01/17. At this time, patient is medically and hemodynamically stable for discharge home today with outpatient follow up with PCP +/- GI if epigastric pain/nausea persist. Rx sent to pharmacy for Augmentin to treat acute sinusitis (congestion with green thick post nasal drip causing her to gag). Recommended utilizing mucinex as well and taking Augmentin with food ot milk to minimize GI upset. Plan d/w Dr. Sage who is in agreement. Total Time Total Time Spent Total Time Spent (In Minutes): 40 minutes Discharge Plan Discharge Items Patient Disposition: Home - Home Health Services Reason For Visit: SBO Discharge Diagnosis: small bowel obstruction Activity: Resume your previous activity Non-emergency contact: Primary Care Provider Call non-emergency contact if: you have any medication questions and your symptoms worsen Follow-up/Referrals: Maddison Metzger MD [Primary Care Provider] - Diet: Low Fiber Addtl Attending Provider Instructions: You were hospitalized for a small bowel obstruction which resolved with conservative treatment. Due to persistent belly discomfort and nausea, you were seen by GI and started on a medicine called Carafate. This medication should be taken before meals and at bedtime to help coat your stomach. Also your protonix has been increased to twice a day. Your remaining medications can be resumed as prescribed. A prescription for Augmentin has been sent to your pharmacy for your sinus infection. Please take as directed until gone. Take with food or milk to minimize upset stomach. We recommend follow up with your family doctor within 1 week of discharge from the hospital or sooner if needed. If you have any questions or concerns after you leave the hospital, you may call the nonemergency number listed on your discharge paperwork. In the event of a medical emergency, call 911. Pending Studies at Discharge: No Stand-Alone Forms: My [employer], Smoking Cessation Medications and DC Order Prescriptions: New sucralfate [Carafate] 1 gram tablet 1 g PO ACHS 28 Days Qty: 28 0RF amoxicillin-pot clavulanate 875-125 mg tablet 1 tab PO BID Qty: 20 0RF Continued levothyroxine 100 mcg tablet 100 mcg PO DAILY Qty: 90 1RF Neupro 2 mg/24 hour patch 24 hour 2 mg transdermal DAILY pantoprazole 40 mg tablet,delayed release (DR/EC) 40 mg PO BID Qty: 180 1RF tramadol 50 mg tablet 50 mg PO TID PRN (Reason: pain) Qty: 90 0RF Rx Instructions: Transition from morphine. Supervising physician Maddison Metzger MD RAFFY [id number] Tylenol Extra Strength 500 mg powder in packet 1,000 mg PO Q6H PRN (Reason: Pain) furosemide [Lasix] 20 mg tablet 20 mg PO DAILY PRN (Reason: weight gain) Qty: 90 2RF prednisone 5 mg tablet 7.5 mg PO DAILY lorazepam 0.5 mg Tablet 0.5 mg PO Q4H PRN (Reason: anxiety) Qty: 20 0RF Rx Instructions: this is a hospice med Discharge Orders: Discharge Order (Routine); Ordered 01/16/23 Ordered By: Kristen Nick Admission Data Admit Date/Time: 01/10/23 22:12 Attending Provider: Solitario Sage Admit Provider: Axel Celis Primary Care Provider: Maddison Metzger Other Providers: Axel Celis ; Noemí Olmos ; Izaiah Paez Lorella G. ; Shawn Jama ; Emy Walters ; Sharlene Barton ; Starr Dean ; Cha Narayanan ; Hector,Clifton ; Jonathan Choi ; Caleb Johnson ; Susan Lowe ; Lew Vanessa ; Melissa Gill i ; Joie Oakes ; Geetha Smith ; Mary Dickinson ; Az Junior ; Kd Blount ; Billy Casanova ; Margret Cervantes ; Wilman Yang Jr Other Interventions: Discharge Summary Assessment (RN) Last Done: 01/16/23 17:23 Coding Level of Care Code 22271 INP/OBS DISCH >30 MIN Diagnoses Partial small bowel obstruction K56.600 ICD (implantable cardioverter-defibrillator), single, in situ Z95.810 Restless leg syndrome G25.81 Rheumatoid arthritis M06.041; M06.042 Laterality: bilateral Rheumatoid arthritis location: hand Rheumatoid factor presence: without rheumatoid factor Hypothyroidism E03.9 Hypothyroidism type: acquired Anxiety F41.9
[2023-01-16] MEDS ORDERED: traMADol HCL 50 MG TABLET PO PRN (15:37)
--- NOTE | 2023-01-16 15:49 | Hospitalist Progress Note ---
Date of Service January 16, 2023 Assessment & Plan (1) Partial small bowel obstruction: Plan: Acute and resolved - NG was clamped and then removed yesterday and she has had no nausea or vomiting - Started clear liquid diet and advanced to full at lunch and then low fiber for dinner - IV Phenergan as needed (zofran increased restless leg syndrome) - General Surgery followed patient throughout stay, nonop conservative management advised/followed and SBO resolved - GI evaluated 01/14 per surgery for persistent nausea and epigastric pain - encouraged NGT removal which was done on 01/15 and added carafate - Continue PPI IV increased to BID and transitioned to oral - Pt continues to endorse nausea and epigastric pain - nausea worse after eating, RUQ ultrasound ordered to exclude underlying GB pathology - if negative for acute GB disease, resume diet and f/u with GI and PCP as outpatient - if concern for GB pathology, will reconsult general surgery and resume NPO status - Stop IV Morphine (since lost IV site) - Transition back to oral Tramadol that she was taking at home PRN (2) ICD (implantable cardioverter-defibrillator), single, in situ: Plan: Chronic and stable - CAD s/p acute [place]x [place] and PCI (in [place] on 02/25/2022), Ventricular Arrhythmia s/p Emergent Cardioversion, Ischemic Cardiomyopathy s/p Single Chamber ICD - Last Echo 12/09/22 - LVH, LVEF 25-30%, severe inferolateral inferior wall hypokinesis, mild MR - Follows with Jhonatan Scott PA-C per last OV records stated - that she had interrogation of the AICD in June 2022 and had all ventricular therapies have been turned off per patient's wishes. - Per prior documentation, pt is planning to stop all of her medications with the exception of Lasix as needed for shortness of breath, lorazepam, and morphine for comfort measures - Unclear when she is planning to do this ?? (3) Restless leg syndrome: Plan: Chronic, unstable - daughter will bring in her own Neupro patch (daughter asking to increase patch - will defer to PCP since we do not have that medication here) - Zofran given in ER seemed to increased restless leg syndrome (4) Rheumatoid arthritis: Plan: Chronic stable - Holding prednisone 7.5 mg p.o. daily - Hold on stress dose steroids, due to GI disturbance, however, would have a low threshold for adding hydrocortisone IV if adrenal insufficiency develops - Resume daily Prednisone to start 01/17 (5) Hypothyroidism: Plan: Chronic stable - Levothyroxine 100mcg held while NPO - last tsh 3.68 in November 2022 - Resume daily Levothyroxine 01/17 (6) Anxiety: Plan: Chronic stable - Continue Lorazepam 0.5mg q8h prn Plan Patient lost IV access on 01/16 and refused a new one. Meds transitioned to oral. Resume Levothyroxine and daily Prednisone on 01/17 as outlined above. Chemistry and CBC reviewed, potassium minimally low at 3.4, replacement ordered. No leukocytosis noted on cbc and h&h stable. AM labs ordered. Anticipate home tomorrow. Plan d/w Dr. Sage. Admission and Anticipated Discharge Date Admission Date: January 10, 2023 Subjective Patient seen on rounds this morning, continues to endorse epigastric pain and nausea which started about 30-60 minutes after eating breakfast. No vomiting. No fever/chills. Physical Exam Physical Exam: GENERAL: 82 yo well-developed, well-nourished WF. AAOx4. Appears uncomfortable but in NAD. LUNGS: Clear to auscultation bilaterally w/o w/r/r CARDIOVASCULAR: Regular rate and rhythm ABDOMEN: Soft w/ normoactive BS throughout. No rigidity or guarding. Mild TTP of epigastrium and RUQ. No masses appreciated. EXTREMITIES: No edema. Non-tender. Peripheral pulses +2/4. Results & Data Results & Data Vital Signs (Past 12 Hours) Vital Signs Temp Pulse Resp BP Pulse Ox O2 Del Method 01/16/23 15:20 36.8 C 86 16 133/89 99 Room Air 01/16/23 08:20 36.3 C L 87 16 137/99 99 Room Air Laboratory Results 01/15/23 05:39 01/16/23 07:20 PG Care Time/CCT Total # of Minutes Spent Total Time Spent with Patient: Total time spent is greater than 50% in coordination of care (as documented) at patient's floor/unit and/or counseling patient: Coding Level of Care Code 37779 SUB INP/OBS CARE 2/35MIN Diagnoses Partial small bowel obstruction K56.600 ICD (implantable cardioverter-defibrillator), single, in situ Z95.810 Restless leg syndrome G25.81 Rheumatoid arthritis M06.041; M06.042 Laterality: bilateral Rheumatoid arthritis location: hand Rheumatoid factor presence: without rheumatoid factor Hypothyroidism E03.9 Hypothyroidism type: acquired Anxiety F41.9 (4) Rheumatoid arthritis Laterality: bilateral Rheumatoid arthritis location: hand Rheumatoid factor presence: without rheumatoid factor Qualified Code(s): M06.041 - Rheumatoid arthritis without rheumatoid factor, right hand; M06.042 - Rheumatoid arthritis without rheumatoid factor, left hand (5) Hypothyroidism Hypothyroidism type: acquired Qualified Code(s): E03.9 - Hypothyroidism, unspecified
--- NOTE | 2023-01-16 16:49 | Ultrasound Report ---
US gallbladder CLINICAL HISTORY: abd pain and nausea TECHNIQUE: Multiple real-time sonographic images of the right upper quadrant were obtained. Comparison: Comparison is made to gallbladder ultrasound 03/19/2022 FINDINGS: The liver is diffusely homogenous with normal contour and echogenicity. No focal mass lesions are see n. No intrahepatic ductal dilatation is seen. No gallstones or sludge are identified within the g allbladder. The gallbladder wall is not thickened. There is no pericholecystic fluid present. A sonog raphic Guido's sign was not elicited by the technology education teacher. The common duct measures 0.[address] at the level of the hepatic artery. The visualized portions of the pancreas appear normal. The right kidney shows normal echogenicity, cortical thickness and renal contour. The right kidney sh ows no evidence of hydronephrosis or mass. No ascites or free fluid is seen in Goncalves's pouch. Incidental note is made of a right pleural effu gonzalez. IMPRESSION: Unremarkable right upper quadrant ultrasound. ACT 112: Negative or not required by law. Electronically signed by: Ray Farooq M.D. 01/16/2023 4:48 PM
[2023-01-17] MEDS ORDERED: LEVOTHYROXINE SODIUM 100 MCG TABLET PO SCH (06:30)
[2023-01-17] MEDS ORDERED: predniSONE 2.5 MG TAB PO SCH (09:00)
== END 2023-01-16 18:14 | disposition home or self-care (01) | DRG 389 ==
LOC: ED 16:55 → SUATTDRO 22:12 → 3E 22:12

== ENCOUNTER 2023-01-18 16:21 | Inpatient (IN) ==
[~2023-01-18 16:21] MED LIST changes: -ACETAMINOPHEN 500 MG TAB PO SCH; -BUPIVACAINE 0.5 % 5 MG/1 ML PF 10ML VIAL ONE; -BUPIVACAINE LIPOSOME/PF 266 MG, BUPIVACAINE/EPINEPHRINE 50 ML, SODIUM CHLORIDE 0.9% 30 ... INFIL SCH; +CALCIUM CHLORIDE 10% 10 ML SYR IV ONE; -CEFAZOLIN 2000MG 2,000 MG/15 ML SYR IV SCH; -FAMOTIDINE 20 MG TAB PO SCH; -GABAPENTIN 300 MG PO SCH; +KETAMINE HCL INJ 50 MG/ML 10 ML VIAL IV ONE; -LR 60ML/HR IV SCH; -METOCLOPRAMIDE HCL 10 MG TABLET PO SCH; -ROPIVACAINE 0.5% 5 MG/ML 30 ML VIAL ONE; +SODIUM BICARB 8.4% INJ 50 MEQ/50 ML SYR IV ONE; +SODIUM CHLORIDE 0.9% 10ML FLUSH IV ONE; +fentaNYL citrate 100 MCG/2 ML CARP IV ONE
--- NOTE | 2023-01-18 16:44 | Emergency Department Note ---
Impression & Plan Metabolic acidosis ADMIT ED Provider Note HPI: The patient is an 82-year-old female with history of adrenal insufficiency, ischemic cardiomyopathy status post ICD which has since been deactivated, coronary artery disease status post stent, who presents emergency department chief complaint of generalized weakness, shortness of breath, and worsening restless leg syndrome. Patient was discharged from the hospital several days ago on 01/16 following an inpatient stay for small bowel obstruction that was resolved nonoperatively with NG tube. Patient then returned home, according to her daughter at the bedside who she has been staying with, she has not done well since she was discharged home. She continues to complain of some shortness of breath as well as being restless, she has had issues with restless leg syndrome that seem to be continuing despite using her NuPRO patch prescribed by her PCP. Patient also states she just feels very weak and does not feel that she has the energy to do anything. On arrival here to the ED the patient is alert, she does appear restless and very anxious, blood pressure stable at 153/84, heart rate is within normal limits at 95, patient is afebrile on arrival at 36.0, oxygen saturation is 95% on room air. ROS: - Per HPI *Outpatient medications and allergy history reviewed. *Pertinent external medical records reviewed. 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: (As interpreted by myself): - An order was placed for continuous cardiac monitoring - Patient was noted to be in sinus rhythm with a rate of 97 EKG: (As interpreted by myself): Rate: 92 Rhythm: Normal sinus rhythm Intervals: Within normal limits ST changes: No ST elevation Time: 2051 Interventions provided in ED: -IV fluid bolus, IV Ativan, IV Haldol, sodium bicarbonate drip, IV cefepime, IV vancomycin Endotracheal intubation: Rapid sequence intubation medications: Ketamine, 120 mg Utilizing glide scope sized [3] glide scope blade was advanced to the vallecula with visualization of the vocal cords. Size [7.5] endotracheal tube was advanced utilizing glide scope stylette and passed through the vocal cords under direct visualization. ET tube was secured at 22 at the lip. ET tube balloon was inflated. Appropriate color change was achieved with capnography. Breath sounds auscultated bilaterally following placement of the ET tube. Differential Diagnosis: Sepsis, small bowel obstruction, acute renal failure/dehydration, acute coronary syndrome, restless leg syndrome, metabolic encephalopathy, amongst other potential pathologies. Medical Decision Making: Shortly after the patient arrived IV was established lab work obtained, patient was maintained on director of global sales, patient was given IV Ativan for symptoms of restlessness and restless leg syndrome. Lab work shows no leukocytosis, hemoglobin is stable at 12.5, platelet count is noted to be within normal limits at 166. CMP does show multiple critical findings, sodium slightly low at 131, potassium slightly elevated at 5.2, chloride 107, BUN 42, creatinine 1.93, glucose 91. Patient is noted to have serum bicarbonate level severely reduced at 8, lactic acid elevated at 6.1, she was placed on a sodium bicarb drip at this point. CT imaging with head was obtained that does not show any evidence of acute intracranial abnormality. CT imaging of the abdomen pelvis does not show any evidence of bowel obstruction. There is note of some possible inflammatory changes around the gallbladder however patient just had an ultrasound performed 2 days ago that did not show any evidence of acute cholecystitis or acute biliary abnormality. Therefore this was not repeated. Patient does have a mild transaminitis with AST and ALT elevated in the 160s, bilirubin is normal. Patient did not have any complaint of abdominal pain on arrival. Chest x-ray did not show any evidence of pneumonia, small right pleural effusion was noted. Given the patient's severe acidosis, elevated lactic acid, and declining mentation blood cultures were drawn and patient was started on cefepime and vancomycin prophylactically. Patient was IV fluid resuscitated with greater than 30 cc/kg of IV fluid. ABG obtained shows evidence of metabolic acidosis with pH of 7.22, PCO2 was reduced at 20 ABG bicarbonate level 8. Despite IV fluid resuscitation patient's lactic acid level on repeat had elevated to 8.0. At this time I did have a discussion with the patient's daughters at the bedside in regards to the patient's critical status. We did discuss extensively treatment options including placement in the ICU for aggressive resuscitation measures and attempt at reversing acidosis. Patient became increasingly restless despite Ativan and Haldol and oxygen saturations dropped into the 80s and patient was placed on 5 L oxy mask. Troponin was noted to be elevated in the 300s, EKG does not show any evidence of ST elevation MO therefore low suspicion for ACS, suspect this is demand ischemia in the setting of possible sepsis with severe dehydration and lactic acidosis. Following discussion with the patient's 2 daughters at the bedside, decision was made to intubate the patient and admit to the ICU. Discussion was held in conjunction with ICU midlevel provider Harris Martinez. Intubation was performed by myself, please see procedure note for details. Fortunately the patient tolerated the intubation well. Following this central line was placed by the ICU midlevel provider, please see his separate documentation for details of the procedure. Patient maintained stable blood pressure throughout the procedure. She was given several more ampules of sodium bicarb prior to the intubation as well as a dose of IV calcium. Family is updated and aware of the patient's critical status and they are in agreement for the patient to be admitted to the ICU. Case was then discussed with the on-call hospitalist for [facility], Dr. Mon, and the patient was placed for admission in guarded condition for further management. Consultants: -Supervisor Record Press midlevel provider, Harris Stevens LINUX SECURITY ADMINISTRATOR -Hospitalist, Dr. Mon Disposition discussion held by myself with: Patient's daughter is at the bedside * CRITICAL CARE TIME: ( 75 ) minutes -Stabilization of patient with severe metabolic acidosis and lactic acidosis requiring sodium bicarb drip, management of metabolic encephalopathy with agitation requiring IV Ativan and IV Haldol, management of acute respiratory failure with oxygen saturations less than 90% on room air ultimately requiring intubation, time spent at the bedside, interpretation of diagnostic studies, discussion with family, discussion with other healthcare providers and arrangement of admission to the ICU Diagnosis: 1. Metabolic acidosis, severe 2. Acute kidney injury 3. Lactic acidosis, acute 4. Transaminitis 5. Sepsis 6. Acute hypoxic respiratory failure 7. Elevated high-sensitivity troponin level Disposition: Admission Alocn Espino DO Emergency Medicine Past Med/Surg History Medical History Acid reflux Acute encephalopathy Acute hyponatremia Acute hyponatremia Acute hypoxemic respiratory failure Acute metabolic encephalopathy Acute MO Acute UTI CAD (coronary artery disease) MO in [place] in 02/2022. 1 stent placed (believe LCx, but not sure). 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 Dehydration, mild DVT prophylaxis DVT prophylaxis Dysuria Elevated troponin Hiatal hernia History of Hodgkin's lymphoma S/P RADIATION/CHEMO (2000) History of pelvic fracture Hyperlipidemia Hypertension Hypothyroidism Ischemic cardiomyopathy Mixed stress and urge urinary incontinence Nausea & vomiting On amiodarone therapy Restless leg syndrome Rheumatoid arthritis ON CHRONIC PREDNISONE 7.5MG DAILY Sciatica Scoliosis Stage 3b chronic kidney disease Ventricular tachycardia Surgical History H/O foot surgery 2ND RT TOE REMOVED History of bilateral cataract extraction RIGHT CATARACT EXTRACTION WITH IOL= 04/05/18= MAC SEDATION AT [facility] History of colonoscopy History of gynecologic surgery ANTERIOR AND POSTERIOR REPAIR - colporrhaphy (for pelvic relaxation) History of removal of cyst HEAD (BENIGN) History of tonsillectomy History of tooth extraction History of total knee replacement RT History of urologic surgery URETEROLYSIS- 04/1995 [facility] [place] S/P coronary artery stent placement S/P vaginal hysterectomy Status post right knee replacement Family History Mother , age 80 Cardiac disorder Family history of lung cancer Brother Diabetes Family history of lung cancer Family history of diabetes mellitus Daughter Breast cancer Father , age 57 Cardiac disorder Grandmother Diabetes Aunt Ovarian cancer paternal aunt Grandmother (Paternal) Family history of diabetes mellitus Other Cancer Heart disease No family history of adverse response to anesthesia No family history of bleeding disorder Denies family history of Colon cancer Colorectal cancer Social History Smoking Status: Former smoker Tobacco Type: Cigarettes Cigarettes Per Day: QUIT + 30 YEARS AGO; Second Hand Exposure: No; Do You Dip or Chew Tobacco: No; Hx Alcohol Use: No Hx Substance Use: No Preferred Language: Tamazight Communication Ability: Unable Communication Ability Comment: Non-verbal, confused at this time. 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 [employer] Feels Safe at Home: Yes Childhood Exposure to Second-Hand Smoke: Yes (parent smoked) Diet: regular Dental Care, Regularly: Yes Sunscreen Use: Yes (occasionally) Assistive Devices: Walker Allergies Allergies Allergy/AdvReac Type Severity Reaction Status Date / Time gabapentin AdvReac Intermediate SHAKING, Verified 01/18/23 15:41 JERKING MOVEMENTS ondansetron [From Zofran] AdvReac Intermediate Unknown Unverified 01/18/23 17:15 benztropine [From Cogentin] AdvReac Shakiness, Verified 01/18/23 15:41 jerking movements metoclopramide [From Reglan] AdvReac Shakiness, Verified 01/18/23 15:41 jerking movements Home Meds Home Medications Medication Instructions Recorded Confirmed prednisone 5 mg tablet 7.5 mg PO DAILY 05/06/22 01/18/23 acetaminophen 500 mg oral powder 1,000 mg PO Q6H PRN Pain 11/08/22 01/18/23 packet (Tylenol Extra Strength) rotigotine 2 mg/24 hour 2 mg transdermal DAILY 11/10/22 01/18/23 transdermal 24 hour patch (Neupro) Previous Rx's Medication Instructions Recorded lorazepam 0.5 mg tablet 0.5 mg PO Q4H PRN anxiety #20 tabs 04/30/22 levothyroxine 100 mcg tablet 100 mcg PO DAILY #90 tabs 10/15/22 pantoprazole 40 mg tablet,delayed 40 mg PO BID #180 tabs 11/10/22 release furosemide 20 mg tablet (Lasix) 20 mg PO DAILY PRN weight gain #90 11/30/22 tabs tramadol 50 mg tablet 50 mg PO TID PRN pain #90 tabs 12/20/22 amoxicillin 875 mg-potassium 1 tab PO BID #20 tabs 01/16/23 clavulanate 125 mg tablet hydroxychloroquine 200 mg tablet 200 mg PO DAILY #30 tabs 01/17/23 (Plaquenil) Results & Data (ED) Vital Signs Vital Signs - 24 hr 01/18/23 16:24 01/18/23 16:59 01/18/23 16:38 Temperature 36.0 C L Temperature Source Temporal Artery Scan Pulse Rate 95 H 91 H Pulse Rate [Apical] Pulse Rate from SpO2 Sensor Pulse Rhythm Regular Pulse Strength Normal Respiratory Rate 20 25 H Respiratory Effort / Characteristics Non-Labored Spontaneous Respiratory Depth Normal Respiratory Pattern Regular Blood Pressure 153/84 H Blood Pressure [Left Arm] Blood Pressure Mean 107 Blood Pressure Mean [Left Arm] Blood Pressure Position Sitting Blood Pressure Position [Left Arm] Pulse Oximetry 95 97 Oxygen Delivery Method Room Air Room Air Oxygen Flow Rate Fraction of Inspired Oxygen SaO2/FiO2 Ratio Sepsis Recent Fever Within 48 Hours No Sepsis New/Unexplained Change in Mental Status No Sepsis Action Taken by Nursing No Action Required End-Tidal CO2 End Tidal CO2 (18-54mmHg) 01/18/23 19:31 01/18/23 16:38 01/18/23 17:02 Temperature Temperature Source Pulse Rate 92 H 98 H Pulse Rate [Apical] Pulse Rate from SpO2 Sensor 92 H Pulse Rhythm Pulse Strength Respiratory Rate 29 H 31 H Respiratory Effort / Characteristics Respiratory Depth Respiratory Pattern Blood Pressure Blood Pressure [Left Arm] Blood Pressure Mean Blood Pressure Mean [Left Arm] Blood Pressure Position Blood Pressure Position [Left Arm] Pulse Oximetry 96 97 Oxygen Delivery Method Oxymask Oxygen Flow Rate 5 Fraction of Inspired Oxygen SaO2/FiO2 Ratio Sepsis Recent Fever Within 48 Hours Sepsis New/Unexplained Change in Mental Status Sepsis Action Taken by Nursing End-Tidal CO2 End Tidal CO2 (18-54mmHg) 01/18/23 17:30 01/18/23 18:00 01/18/23 18:30 Temperature Temperature Source Pulse Rate 93 H 86 90 Pulse Rate [Apical] Pulse Rate from SpO2 Sensor Pulse Rhythm Pulse Strength Respiratory Rate 17 29 H 30 H Respiratory Effort / Characteristics Respiratory Depth Respiratory Pattern Blood Pressure Blood Pressure [Left Arm] Blood Pressure Mean Blood Pressure Mean [Left Arm] Blood Pressure Position Blood Pressure Position [Left Arm] Pulse Oximetry Oxygen Delivery Method Oxygen Flow Rate Fraction of Inspired Oxygen SaO2/FiO2 Ratio Sepsis Recent Fever Within 48 Hours Sepsis New/Unexplained Change in Mental Status Sepsis Action Taken by Nursing End-Tidal CO2 End Tidal CO2 (18-54mmHg) 01/18/23 19:00 01/18/23 19:11 01/18/23 19:30 Temperature Temperature Source Pulse Rate 87 101 H Pulse Rate [Apical] Pulse Rate from SpO2 Sensor 104 H Pulse Rhythm Pulse Strength Respiratory Rate 34 H 20 Respiratory Effort / Characteristics Respiratory Depth Respiratory Pattern Blood Pressure 118/88 Blood Pressure [Left Arm] Blood Pressure Mean 108 Blood Pressure Mean [Left Arm] Blood Pressure Position Blood Pressure Position [Left Arm] Pulse Oximetry 96 Oxygen Delivery Method Oxygen Flow Rate Fraction of Inspired Oxygen SaO2/FiO2 Ratio Sepsis Recent Fever Within 48 Hours Sepsis New/Unexplained Change in Mental Status Sepsis Action Taken by Nursing End-Tidal CO2 End Tidal CO2 (18-54mmHg) 01/18/23 19:45 01/18/23 20:39 01/18/23 20:37 Temperature Temperature Source Pulse Rate 100 H Pulse Rate [Apical] 92 H Pulse Rate from SpO2 Sensor Pulse Rhythm Pulse Strength Respiratory Rate 26 H Respiratory Effort / Characteristics Spontaneous Respiratory Depth Respiratory Pattern Blood Pressure Blood Pressure [Left Arm] 144/92 H Blood Pressure Mean Blood Pressure Mean [Left Arm] 109 Blood Pressure Position Blood Pressure Position [Left Arm] Lying Pulse Oximetry 84 L 100 Oxygen Delivery Method Room Air Mechanical Vent Oxygen Flow Rate Fraction of Inspired Oxygen 40 SaO2/FiO2 Ratio 250 Sepsis Recent Fever Within 48 Hours Sepsis New/Unexplained Change in Mental Status Sepsis Action Taken by Nursing End-Tidal CO2 End Tidal CO2 (18-54mmHg) 27 01/18/23 20:55 01/18/23 19:40 01/18/23 19:50 Temperature Temperature Source Pulse Rate 103 H 94 H Pulse Rate [Apical] Pulse Rate from SpO2 Sensor 105 H 104 H Pulse Rhythm Pulse Strength Respiratory Rate 26 H 17 18 Respiratory Effort / Characteristics Respiratory Depth Respiratory Pattern Blood Pressure Blood Pressure [Left Arm] Blood Pressure Mean Blood Pressure Mean [Left Arm] Blood Pressure Position Blood Pressure Position [Left Arm] Pulse Oximetry 97 96 Oxygen Delivery Method Oxygen Flow Rate Fraction of Inspired Oxygen 40 SaO2/FiO2 Ratio Sepsis Recent Fever Within 48 Hours Sepsis New/Unexplained Change in Mental Status Sepsis Action Taken by Nursing End-Tidal CO2 End Tidal CO2 (18-54mmHg) 01/18/23 20:00 01/18/23 20:03 01/18/23 20:03 Temperature Temperature Source Pulse Rate 104 H 104 H Pulse Rate [Apical] Pulse Rate from SpO2 Sensor 104 H 105 H Pulse Rhythm Pulse Strength Respiratory Rate 26 H 17 Respiratory Effort / Characteristics Respiratory Depth Respiratory Pattern Blood Pressure 140/89 Blood Pressure [Left Arm] Blood Pressure Mean 108 Blood Pressure Mean [Left Arm] Blood Pressure Position Blood Pressure Position [Left Arm] Pulse Oximetry 98 95 Oxygen Delivery Method Oxygen Flow Rate Fraction of Inspired Oxygen SaO2/FiO2 Ratio Sepsis Recent Fever Within 48 Hours Sepsis New/Unexplained Change in Mental Status Sepsis Action Taken by Nursing End-Tidal CO2 End Tidal CO2 (18-54mmHg) 01/18/23 20:10 01/18/23 20:20 01/18/23 20:36 Temperature Temperature Source Pulse Rate 104 H 107 H 104 H Pulse Rate [Apical] Pulse Rate from SpO2 Sensor 104 H 109 H 111 H Pulse Rhythm Pulse Strength Respiratory Rate 30 H 34 H 20 Respiratory Effort / Characteristics Respiratory Depth Respiratory Pattern Blood Pressure Blood Pressure [Left Arm] Blood Pressure Mean Blood Pressure Mean [Left Arm] Blood Pressure Position Blood Pressure Position [Left Arm] Pulse Oximetry 97 92 98 Oxygen Delivery Method Oxygen Flow Rate Fraction of Inspired Oxygen SaO2/FiO2 Ratio Sepsis Recent Fever Within 48 Hours Sepsis New/Unexplained Change in Mental Status Sepsis Action Taken by Nursing End-Tidal CO2 End Tidal CO2 (18-54mmHg) 01/18/23 20:38 01/18/23 20:38 01/18/23 20:40 Temperature Temperature Source Pulse Rate 84 84 Pulse Rate [Apical] Pulse Rate from SpO2 Sensor 99 H 91 H Pulse Rhythm Pulse Strength Respiratory Rate 29 H 27 H Respiratory Effort / Characteristics Respiratory Depth Respiratory Pattern Blood Pressure 144/92 H Blood Pressure [Left Arm] Blood Pressure Mean 109 Blood Pressure Mean [Left Arm] Blood Pressure Position Blood Pressure Position [Left Arm] Pulse Oximetry 100 100 Oxygen Delivery Method Oxygen Flow Rate Fraction of Inspired Oxygen 40 40 SaO2/FiO2 Ratio Sepsis Recent Fever Within 48 Hours Sepsis New/Unexplained Change in Mental Status Sepsis Action Taken by Nursing End-Tidal CO2 28 27 End Tidal CO2 (18-54mmHg) 01/18/23 20:41 01/18/23 20:41 01/18/23 20:43 Temperature Temperature Source Pulse Rate 89 81 Pulse Rate [Apical] Pulse Rate from SpO2 Sensor 89 87 Pulse Rhythm Pulse Strength Respiratory Rate 26 H 26 H Respiratory Effort / Characteristics Respiratory Depth Respiratory Pattern Blood Pressure 109/67 Blood Pressure [Left Arm] Blood Pressure Mean 81 Blood Pressure Mean [Left Arm] Blood Pressure Position Blood Pressure Position [Left Arm] Pulse Oximetry 100 100 Oxygen Delivery Method Oxygen Flow Rate Fraction of Inspired Oxygen 40 40 SaO2/FiO2 Ratio Sepsis Recent Fever Within 48 Hours Sepsis New/Unexplained Change in Mental Status Sepsis Action Taken by Nursing End-Tidal CO2 28 End Tidal CO2 (18-54mmHg) 01/18/23 20:43 01/18/23 20:45 01/18/23 20:45 Temperature Temperature Source Pulse Rate 62 Pulse Rate [Apical] Pulse Rate from SpO2 Sensor 86 Pulse Rhythm Pulse Strength Respiratory Rate 21 Respiratory Effort / Characteristics Respiratory Depth Respiratory Pattern Blood Pressure 103/71 124/91 Blood Pressure [Left Arm] Blood Pressure Mean 81 102 Blood Pressure Mean [Left Arm] Blood Pressure Position Blood Pressure Position [Left Arm] Pulse Oximetry 95 Oxygen Delivery Method Oxygen Flow Rate Fraction of Inspired Oxygen 40 SaO2/FiO2 Ratio Sepsis Recent Fever Within 48 Hours Sepsis New/Unexplained Change in Mental Status Sepsis Action Taken by Nursing End-Tidal CO2 38 End Tidal CO2 (18-54mmHg) 01/18/23 20:50 Temperature Temperature Source Pulse Rate 92 H Pulse Rate [Apical] Pulse Rate from SpO2 Sensor 92 H Pulse Rhythm Pulse Strength Respiratory Rate 26 H Respiratory Effort / Characteristics Respiratory Depth Respiratory Pattern Blood Pressure Blood Pressure [Left Arm] Blood Pressure Mean Blood Pressure Mean [Left Arm] Blood Pressure Position Blood Pressure Position [Left Arm] Pulse Oximetry 97 Oxygen Delivery Method Oxygen Flow Rate Fraction of Inspired Oxygen 40 SaO2/FiO2 Ratio Sepsis Recent Fever Within 48 Hours Sepsis New/Unexplained Change in Mental Status Sepsis Action Taken by Nursing End-Tidal CO2 31 End Tidal CO2 (18-54mmHg) Laboratory Data 01/18/23 16:48 01/18/23 22:27 Lab Results 01/18/23 01/18/23 01/18/23 Range/Units 16:48 16:48 16:48 WBC 8.06 (4.8-10.8) K/ul RBC 4.52 (4.20-5.40) M/uL Hgb 12.5 (12.0-16.0) g/dl Hct 39.7 (37.0-47.0) % MCV 87.8 (80.0-100.0) fL MCH 27.7 (25.0-34.0) pg MCHC 31.5 L (32.0-36.0) g/dL RDW Std Deviation 54.6 H (36.4-46.3) fL RDW Coeff of Sachin 17.4 H (11.5-14.5) % Plt Count 166 (130-400) K/uL MPV 9.2 L (9.4-12.4) fL Immature Gran % (Auto) 1.7 % Neut % (Auto) 76.9 % Lymph % (Auto) 15.0 % [place]enden % (Auto) 6.1 % Eos % (Auto) 0.1 % Baso % (Auto) 0.2 % Neut # (Auto) 6.19 (1.40-6.50) K/uL Lymph # (Auto) 1.21 (1.2-3.4) K/uL [place] # (Auto) 0.49 (0.11-0.59) K/uL Eos # (Auto) 0.01 (0-0.50) K/uL Baso # (Auto) 0.02 (0-0.2) K/uL Immature Gran # (Auto) 0.14 (0.01-0.20) K/uL Absolute Nucleated RBC 0.06 (0-0.12) K/uL Nucleated RBC % (auto) 0.7 % PT Cancelled INR Cancelled ABG pH (7.35-7.45) ABG pCO2 (35-46) mmHg ABG pO2 (80-95) mmHg ABG HCO3 (19-24) mmol/L ABG O2 Saturation (90-95) % ABG Base Excess (-9-1.8) mEq/L Manpreet Test (Pos) VBG pH VBG pCO2 VBG pO2 VBG HCO3 VBG O2 Saturation VBG Base Excess Barometric Pressure Oxygen Given Sodium Cancelled Potassium Cancelled Chloride Cancelled Carbon Dioxide Cancelled Anion Gap Cancelled BUN Cancelled Creatinine Cancelled Est Cr Clr Drug Dosing Cancelled Est GFR ( Amer) Cancelled Est GFR (Non-Af Amer) Cancelled BUN/Creatinine Ratio Cancelled Glucose Cancelled Lactate (0.4-2.0) mmol/L Calcium Cancelled Total Bilirubin Cancelled AST Cancelled ALT Cancelled Alkaline Phosphatase Cancelled Total Creatine Kinase 185 (26-192) U/L Troponin I High Sens 368.1 H* (0-14) pg/ml Total Protein Cancelled Albumin Cancelled Globulin Cancelled Albumin/Globulin Ratio Cancelled Procalcitonin (0-0.5) ng/ml TSH (0.300-4.500) uIu/ml Free T4 (0.61-1.60) ng/dl Adenovirus (PCR) (NotDetected) B. pertussis DNA (PCR) (NotDetected) B.parapertussis DNA PCR (NotDetected) C. pneumoniae DNA (PCR) (NotDetected) Coronavirus OC43 (PCR) (NotDetected) Coronavirus HKU1 (PCR) (NotDetected) Coronavirus 229E (PCR) (NotDetected) SARS-CoV-2 (PCR) (NotDetected) Coronavirus NL63 (PCR) (NotDetected) Human Metapneumovir PCR (NotDetected) Influenza Type A (PCR) (NotDetected) Influenza Type B (PCR) (NotDetected) M. pneumoniae (PCR) (NotDetected) Parainfluenza 1 (PCR) (NotDetected) Parainfluenza 2 (PCR) (NotDetected) Parainfluenza 3 (PCR) (NotDetected) Parainfluenza 4 (PCR) (NotDetected) RSV (PCR) (NotDetected) Entero/Rhino (PCR) (NotDetected) 01/18/23 01/18/23 01/18/23 Range/Units 16:48 16:48 17:18 WBC (4.8-10.8) K/ul RBC (4.20-5.40) M/uL Hgb (12.0-16.0) g/dl Hct (37.0-47.0) % MCV (80.0-100.0) fL MCH (25.0-34.0) pg MCHC (32.0-36.0) g/dL RDW Std Deviation (36.4-46.3) fL RDW Coeff of Sachin (11.5-14.5) % Plt Count (130-400) K/uL MPV (9.4-12.4) fL Immature Gran % (Auto) % Neut % (Auto) % Lymph % (Auto) % [place] % (Auto) % Eos % (Auto) % Baso % (Auto) % Neut # (Auto) (1.40-6.50) K/uL Lymph # (Auto) (1.2-3.4) K/uL [place] # (Auto) (0.11-0.59) K/uL Eos # (Auto) (0-0.50) K/uL Baso # (Auto) (0-0.2) K/uL Immature Gran # (Auto) (0.01-0.20) K/uL Absolute Nucleated RBC (0-0.12) K/uL Nucleated RBC % (auto) % PT INR ABG pH (7.35-7.45) ABG pCO2 (35-46) mmHg ABG pO2 (80-95) mmHg ABG HCO3 (19-24) mmol/L ABG O2 Saturation (90-95) % ABG Base Excess (-9-1.8) mEq/L Manpreet Test (Pos) VBG pH VBG pCO2 VBG pO2 VBG HCO3 VBG O2 Saturation VBG Base Excess Barometric Pressure Oxygen Given Sodium Potassium Chloride Carbon Dioxide Anion Gap BUN Creatinine Est Cr Clr Drug Dosing Est GFR ( Amer) Est GFR (Non-Af Amer) BUN/Creatinine Ratio Glucose Lactate 6.8 H* (0.4-2.0) mmol/L Calcium Total Bilirubin AST ALT Alkaline Phosphatase Total Creatine Kinase (26-192) U/L Troponin I High Sens (0-14) pg/ml Total Protein Albumin Globulin Albumin/Globulin Ratio Procalcitonin 0.42 (0-0.5) ng/ml TSH 12.710 H (0.300-4.500) uIu/ml Free T4 1.38 (0.61-1.60) ng/dl Adenovirus (PCR) (NotDetected) B. pertussis DNA (PCR) (NotDetected) B.parapertussis DNA PCR (NotDetected) C. pneumoniae DNA (PCR) (NotDetected) Coronavirus OC43 (PCR) (NotDetected) Coronavirus HKU1 (PCR) (NotDetected) Coronavirus 229E (PCR) (NotDetected) SARS-CoV-2 (PCR) (NotDetected) Coronavirus NL63 (PCR) (NotDetected) Human Metapneumovir PCR (NotDetected) Influenza Type A (PCR) (NotDetected) Influenza Type B (PCR) (NotDetected) M. pneumoniae (PCR) (NotDetected) Parainfluenza 1 (PCR) (NotDetected) Parainfluenza 2 (PCR) (NotDetected) Parainfluenza 3 (PCR) (NotDetected) Parainfluenza 4 (PCR) (NotDetected) RSV (PCR) (NotDetected) Entero/Rhino (PCR) (NotDetected) 01/18/23 01/18/23 01/18/23 Range/Units 17:19 18:16 18:16 WBC (4.8-10.8) K/ul RBC (4.20-5.40) M/uL Hgb (12.0-16.0) g/dl Hct (37.0-47.0) % MCV (80.0-100.0) fL MCH (25.0-34.0) pg MCHC (32.0-36.0) g/dL RDW Std Deviation (36.4-46.3) fL RDW Coeff of Sachin (11.5-14.5) % Plt Count (130-400) K/uL MPV (9.4-12.4) fL Immature Gran % (Auto) % Neut % (Auto) % Lymph % (Auto) % [place] % (Auto) % Eos % (Auto) % Baso % (Auto) % Neut # (Auto) (1.40-6.50) K/uL Lymph # (Auto) (1.2-3.4) K/uL [place] # (Auto) (0.11-0.59) K/uL Eos # (Auto) (0-0.50) K/uL Baso # (Auto) (0-0.2) K/uL Immature Gran # (Auto) (0.01-0.20) K/uL Absolute Nucleated RBC (0-0.12) K/uL Nucleated RBC % (auto) % PT 18.3 H INR 1.7 H ABG pH (7.35-7.45) ABG pCO2 (35-46) mmHg ABG pO2 (80-95) mmHg ABG HCO3 (19-24) mmol/L ABG O2 Saturation (90-95) % ABG Base Excess (-9-1.8) mEq/L Manpreet Test (Pos) VBG pH VBG pCO2 VBG pO2 VBG HCO3 VBG O2 Saturation VBG Base Excess Barometric Pressure Oxygen Given Sodium 131 L Potassium 5.2 H Chloride 107 Carbon Dioxide 8 L* Anion Gap 16 H BUN 42 H Creatinine 1.93 H Est Cr Clr Drug Dosing Not Reportable Est GFR ( Amer) 27.8 Est GFR (Non-Af Amer) 24.0 BUN/Creatinine Ratio 21.8 H Glucose 91 Lactate (0.4-2.0) mmol/L Calcium 8.7 Total Bilirubin 0.8 AST 166 H ALT 168 H Alkaline Phosphatase 144 H Total Creatine Kinase (26-192) U/L Troponin I High Sens (0-14) pg/ml Total Protein 6.2 Albumin 3.6 Globulin 2.6 Albumin/Globulin Ratio 1.4 Procalcitonin (0-0.5) ng/ml TSH (0.300-4.500) uIu/ml Free T4 (0.61-1.60) ng/dl Adenovirus (PCR) Not Detected (NotDetected) B. pertussis DNA (PCR) Not Detected (NotDetected) B.parapertussis DNA PCR Not Detected (NotDetected) C. pneumoniae DNA (PCR) Not Detected (NotDetected) Coronavirus OC43 (PCR) Not Detected (NotDetected) Coronavirus HKU1 (PCR) Not Detected (NotDetected) Coronavirus 229E (PCR) Not Detected (NotDetected) SARS-CoV-2 (PCR) Not Detected (NotDetected) Coronavirus NL63 (PCR) Not Detected (NotDetected) Human Metapneumovir PCR Not Detected (NotDetected) Influenza Type A (PCR) Not Detected (NotDetected) Influenza Type B (PCR) Not Detected (NotDetected) M. pneumoniae (PCR) Not Detected (NotDetected) Parainfluenza 1 (PCR) Not Detected (NotDetected) Parainfluenza 2 (PCR) Not Detected (NotDetected) Parainfluenza 3 (PCR) Not Detected (NotDetected) Parainfluenza 4 (PCR) Not Detected (NotDetected) RSV (PCR) Not Detected (NotDetected) Entero/Rhino (PCR) Not Detected (NotDetected) 01/18/23 01/18/23 01/18/23 Range/Units 19:52 19:52 19:52 WBC (4.8-10.8) K/ul RBC (4.20-5.40) M/uL Hgb (12.0-16.0) g/dl Hct (37.0-47.0) % MCV (80.0-100.0) fL MCH (25.0-34.0) pg MCHC (32.0-36.0) g/dL RDW Std Deviation (36.4-46.3) fL RDW Coeff of Sachin (11.5-14.5) % Plt Count (130-400) K/uL MPV (9.4-12.4) fL Immature Gran % (Auto) % Neut % (Auto) % Lymph % (Auto) % [place] % (Auto) % Eos % (Auto) % Baso % (Auto) % Neut # (Auto) (1.40-6.50) K/uL Lymph # (Auto) (1.2-3.4) K/uL [place] # (Auto) (0.11-0.59) K/uL Eos # (Auto) (0-0.50) K/uL Baso # (Auto) (0-0.2) K/uL Immature Gran # (Auto) (0.01-0.20) K/uL Absolute Nucleated RBC (0-0.12) K/uL Nucleated RBC % (auto) % PT INR ABG pH 7.22 L (7.35-7.45) ABG pCO2 20 L (35-46) mmHg ABG pO2 106 H (80-95) mmHg ABG HCO3 8 L (19-24) mmol/L ABG O2 Saturation 97.9 H (90-95) % ABG Base Excess -17.4 L (-9-1.8) mEq/L Manpreet Test POS (Pos) VBG pH Cancelled VBG pCO2 Cancelled VBG pO2 Cancelled VBG HCO3 Cancelled VBG O2 Saturation Cancelled VBG Base Excess Cancelled Barometric Pressure Cancelled Oxygen Given 5L O2 Sodium Potassium Chloride Carbon Dioxide Anion Gap BUN Creatinine Est Cr Clr Drug Dosing Est GFR ( Amer) Est GFR (Non-Af Amer) BUN/Creatinine Ratio Glucose Lactate 8.0 H* (0.4-2.0) mmol/L Calcium Total Bilirubin AST ALT Alkaline Phosphatase Total Creatine Kinase (26-192) U/L Troponin I High Sens (0-14) pg/ml Total Protein Albumin Globulin Albumin/Globulin Ratio Procalcitonin (0-0.5) ng/ml TSH (0.300-4.500) uIu/ml Free T4 (0.61-1.60) ng/dl Adenovirus (PCR) (NotDetected) B. pertussis DNA (PCR) (NotDetected) B.parapertussis DNA PCR (NotDetected) C. pneumoniae DNA (PCR) (NotDetected) Coronavirus OC43 (PCR) (NotDetected) Coronavirus HKU1 (PCR) (NotDetected) Coronavirus 229E (PCR) (NotDetected) SARS-CoV-2 (PCR) (NotDetected) Coronavirus NL63 (PCR) (NotDetected) Human Metapneumovir PCR (NotDetected) Influenza Type A (PCR) (NotDetected) Influenza Type B (PCR) (NotDetected) M. pneumoniae (PCR) (NotDetected) Parainfluenza 1 (PCR) (NotDetected) Parainfluenza 2 (PCR) (NotDetected) Parainfluenza 3 (PCR) (NotDetected) Parainfluenza 4 (PCR) (NotDetected) RSV (PCR) (NotDetected) Entero/Rhino (PCR) (NotDetected) Administered Medications Fentanyl Citrate (Fentanyl Bolus From Bag) 50 mcg IV Q60M PRN PRN Reason: Pain or Agitation Stop: 02/01/23 21:38 Last Admin: 01/18/23 20:56 Dose: 50 mcg Documented By: ROSSI Co-signed By: EML Sodium Bicarbonate 150 meq/ (Dextrose) 1,150 mls @ 100 mls/hr IV .[id number] [facility] Stop: 02/17/23 18:59 Last Infusion: 01/18/23 20:52 Dose: 150 mls/hr Documented By: Admin: 01/18/23 19:26 Dose: 100 mls/hr Documented By: WILLIAM Propofol (Diprivan) 1,000 mg in 100 mls @ 7.092 mls/hr IV .Q14H7M [facility]; Protocol Stop: 01/21/23 20:44 Last Admin: 01/18/23 20:52 Dose: 15 mcg/kg/min, 5.3 mls/hr Documented By: ROSSI Co-signed By: NEYMAR Fentanyl Citrate (Fentanyl Citrate) 2,500 mcg in 250 mls @ 5 mls/hr IV .Q50H [facility]; Protocol Stop: 02/01/23 21:44 Last Admin: 01/18/23 20:56 Dose: 75 mcg/hr, 7.5 mls/hr Documented By: ROSSI Co-signed By: RHIANNA Conroy (Icu Protocol For Hyperglycemia) 1 each N/A ACHS [facility] Stop: 01/20/23 22:06 Last Admin: 01/18/23 22:34 Dose: Not Given Documented By: JosephT Discontinued Medications Albuterol (Albut/Ipratrop 3mg/0.5mg Neb 3 Ml Vial) Confirm Administered Dose 3 ml .ROUTE .STK-MED ONE Stop: 01/18/23 20:02 Last Admin: 01/18/23 20:06 Dose: Not Given Documented By: HILARY Albuterol (Albut/Ipratrop 3mg/0.5mg Neb 3 Ml Vial) 3 ml NEB NOW STA; Protocol Stop: 01/18/23 20:03 Last Admin: 01/18/23 20:03 Dose: 3 ml Documented By: HILARY Fentanyl Citrate (Fentanyl Citrate 2,500 Mcg/250 Ml Bag) Confirm Administered Dose 2,500 mcg IV .STK-MED ONE Stop: 01/18/23 20:54 Last Admin: 01/18/23 20:56 Dose: Not Given Documented By: ROSSI Haloperidol Lactate (Haloperidol Lactate 5 Mg/Ml 1 Ml Vial) 5 mg IV NOW STA Stop: 01/18/23 18:46 Last Admin: 01/18/23 18:58 Dose: 5 mg Documented By: MAURICIO Sodium Chloride (Nss) 500 mls @ 999 mls/hr IV .Q31M [facility] Stop: 01/18/23 17:15 Last Infusion: 01/18/23 19:29 Dose: 0 mls/hr Documented By: Admin: 01/18/23 17:17 Dose: 999 mls/hr Documented By: MAURICIO Sodium Chloride (Nss 1000ml) 1,000 mls @ 999 mls/hr IV .Q1H1M ONE Stop: 01/18/23 18:39 Last Admin: 01/18/23 19:24 Dose: 999 mls/hr Documented By: MAURICIO Cefepime HCl (Maxipime) 2,000 mg in 20 mls @ 5 mls/min IV NOW STA; Protocol Stop: 01/18/23 19:00 Last Admin: 01/18/23 20:10 Dose: 5 mls/min Documented By: HILARY Sodium Chloride (Nss 1000ml) 1,000 mls @ 999 mls/hr IV .Q1H1M ONE Stop: 01/18/23 20:59 Last Admin: 01/18/23 20:00 Dose: 999 mls/hr Documented By: ROSSI Vancomycin HCl 1,250 mg/ (Sodium Chloride) 525 mls @ 200 mls/hr IV NOW ONE Stop: 01/18/23 22:41 Last Admin: 01/18/23 20:52 Dose: 200 mls/hr Documented By: ROSSI Phytonadione 10 mg/ Dextrose 51 mls @ 102 mls/hr IV ONE ONE Stop: 01/18/23 22:14 Last Admin: 01/18/23 22:18 Dose: 102 mls/hr Documented By: RADHA Ketamine HCl (Ketamine Hcl Inj 50 Mg/Ml 10 Ml Vial) 160 mg IV NOW STA Stop: 01/18/23 20:30 Last Admin: 01/18/23 20:34 Dose: 120 mg Documented By: ROSSI Lorazepam (Lorazepam 2 Mg/1 Ml Vial) 0.5 mg IV NOW STA Stop: 01/18/23 16:46 Last Admin: 01/18/23 16:53 Dose: 0.5 mg Documented By: MAURICIO Lorazepam (Lorazepam 2 Mg/1 Ml Vial) 1 mg IV NOW STA Stop: 01/18/23 18:46 Last Admin: 01/18/23 18:58 Dose: 1 mg Documented By: MAURICIO Miscellaneous (Stat Iv) 1 each N/A NOW STA Stop: 01/18/23 18:56 Last Admin: 01/18/23 20:10 Dose: 1 each Documented By: HILARY Miscellaneous (Rapid Sequence Induction Bag) Confirm Administered Dose 1 each N/A .STK-MED ONE Stop: 01/18/23 20:25 Last Admin: 01/18/23 20:35 Dose: 1 each Documented By: ROSSI Propofol (Propofol Iv Emulsion 10 Mg/Ml 100 Ml Vial) Confirm Administered Dose 1,000 mg IV .STK-MED ONE Stop: 01/18/23 20:30 Last Admin: 01/18/23 21:35 Dose: Not Given Documented By: ROSSI Sodium Bicarbonate (Sodium Bicarb 8.4% Inj 50 Meq/50 Ml Syr) 50 meq IV NOW STA Stop: 01/18/23 20:11 Last Admin: 01/18/23 20:16 Dose: 50 meq Documented By: HILARY Succinylcholine Chloride (Succinylcholine Chloride 20 Mg/Ml 10 Ml Vial) 80 mg IV NOW STA Stop: 01/18/23 20:30 Last Admin: 01/18/23 20:34 Dose: Not Given Documented By: NA Imaging Data Radiologist's Impression: Chest X-Ray 01/18/23 16:40 XR chest 1V portable CLINICAL HISTORY: weakness TECHNIQUE: Single frontal radiograph of the chest was obtained. Comparison: Comparison is made to chest radiograph 01/15/2023 FINDINGS: Pacemaker defibrillator is seen. Cardiomegaly is noted. The aortic arch is calcified. Lungs are underinflated but clear. Small right pleural effusion. IMPRESSION: Small right pleural effusion without evidence of acute abnormality. ACT 112: Negative or not required by law. Electronically signed by: Ray Farooq M.D. 01/18/2023 5:[address] 01/18/23 16:42 CT head/brain wo con CLINICAL HISTORY: AMS Technique: Contiguous axial CT images of the head were acquired from the base of the skull to the vertex without intravenous contrast administration. Images were viewed in brain, subdural and bone windows. Automated dose lowering techniques and/or adjustment according to patient size were utilized for this exam. Comparison: Comparison is made to CT head 04/18/2022 Findings: Areas of decreased attenuation are present in the periventricular and subcortical white matter bilaterally consistent with small vessel ischemic disease. Generalized cerebral atrophy with commensurate enlargement of the ventricles, sulci, and cisterns is also present. There is no acute intracranial hemorrhage or evidence of acute territorial infarction. No shift of the midline structures, mass effect, or extra-axial abnormalities are shown. Atheros clerotic calcifications are present in the intracranial segments of the internal carotid arteries. Imaged portions of the paranasal sinuses and mastoid air cells are clear. There is evidence of bilateral cataract extraction and intraocular lens implantation. There are no acute fractures of the calvaria or scalp swelling. Impression: No acute intracranial hemorrhage, no evidence of acute territorial infarction or other acute intracranial disease process. ACT 112: Negative or not required by law. Electronically signed by: Ray Farooq M.D. 01/18/2023 5:18 PM Abdomen/Pelvis CT 01/18/23 18:56 Exam(s): CT ABDOMEN + PELVIS Without Contrast EXAM: CT Abdomen and Pelvis Without Intravenous Contrast CLINICAL HISTORY: Reason for exam: elevated lactic acid, recent SBO. TECHNIQUE: Axial computed tomography images of the abdomen and pelvis without intravenous contrast. CTDI is 17.63 mGy and DLP is 760.45 mGy-cm. Automated exposure control was utilized for the study. A dose lowering technique was utilized adhering to the principles of ALARA. COMPARISON: No relevant prior studies available. FINDINGS: Limitations: Limited without contrast. Pleural space: Trace left and small right pleural effusions. Heart: Cardiomegaly and pacemaker. Mediastinum: Large hiatal hernia. ABDOMEN: Liver: Unremarkable. Gallbladder and bile ducts: Suggestion mild nonspecific pericholecystic stranding. No radiodense gallstones. Pancreas: Unremarkable. Spleen: Unremarkable. Adrenals: Unremarkable. Kidneys and ureters: Severe atrophy of the left kidney. Stomach and bowel: Colonic diverticula without diverticulitis. Nonobstructive bowel gas pattern. PELVIS: Appendix: No findings to suggest acute appendicitis. Bladder: Unremarkable. Reproductive: Hysterectomy. Subperitoneal space: Presacral edema. ABDOMEN and PELVIS: Intraperitoneal space: Trace amounts of fluid in the peritoneal cavity. Edema in the mesentery/peritoneal cavity. No evidence of pneumatosis or extraluminal air. Bones/joints: Scoliosis. Soft tissues: Dependent edema in the subcutaneous tissues of the back. Vasculature: No acute process. IMPRESSION: 1. No evidence of pneumatosis or extraluminal air. 2. Suggestion mild nonspecific pericholecystic stranding. No radiodense gallstones. Electronically signed by: Allyson Mast M.D. 01/18/23 19:40 PM Discharge Plan Visit Data Chief Complaint: Lethargic Stated Complaint: FLUID IN LUNGS,LETHARGIC,SLEEPING ALOT,DEHYDRATED ED Provider: Alcon Espino Discharge Problem: Metabolic acidosis Patient Disposition: Admitted As Inpatient Discharge Instructions Interventions: ED Discharge Assessment Last Done: 01/18/23 21:25
[2023-01-18] MEDS ORDERED: LORazepam 2 MG/1 ML VIAL IV STA ×2 (16:45→18:45)
[2023-01-18] MEDS ORDERED: SODIUM CHLORIDE 0.9% 500 ML IV SCH (16:45)
[2023-01-18 17:09] LABS: Basophils # (auto) 0.02 K/uL (0-0.2); Basophils % (auto) 0.2 %; Eosinophils # (auto) 0.01 K/uL (0-0.50); Eosinophils % (auto) 0.1 %; Hematocrit (blood only) 39.7 % (37.0-47.0); Hemoglobin 12.5 g/dl (12.0-16.0); Immature Granulocytes # (auto) 0.14 K/uL (0.01-0.20); Immature Granulocytes % (auto) 1.7 %; Lymphocytes # (auto) 1.21 K/uL (1.2-3.4); Mean Corpuscular Hemoglobin 27.7 pg (25.0-34.0); Mean Corpuscular Hgb Conc 31.5 g/dL (32.0-36.0); Mean Corpuscular Volume 87.8 fL (80.0-100.0); Mean Platelet Volume 9.2 fL (9.4-12.4); Monocytes # (auto) 0.49 K/uL (0.11-0.59); Monocytes % (auto) 6.1 %; Neutrophils # (auto) 6.19 K/uL (1.40-6.50); Neutrophils % (auto) 76.9 %; Nucleated RBC # (auto) 0.06 K/uL (0-0.12); Nucleated RBC % (auto) 0.7 %; Platelet Count 166 K/uL (130-400); RDW Coefficient of Variation 17.4 % (11.5-14.5); RDW Standard Deviation 54.6 fL (36.4-46.3); Red Blood Count 4.52 M/uL (4.20-5.40); White Blood Count 8.06 K/ul (4.8-10.8)
--- NOTE | 2023-01-18 17:20 | XRay Report ---
XR chest 1V portable CLINICAL HISTORY: weakness TECHNIQUE: Single frontal radiograph of the chest was obtained. Comparison: Comparison is made to chest radiograph 01/15/2023 FINDINGS: Pacemaker defibrillator is seen. Cardiomegaly is noted. The aortic arch is calcified. Lungs are under inflated but clear. Small right pleural effusion. IMPRESSION: Small right pleural effusion without evidence of acute abnormality. ACT 112: Negative or not required by law. Electronically signed by: Ray Farooq M.D. 01/18/2023 5:19 PM
--- NOTE | 2023-01-18 17:20 | CT Scan Report ---
CT head/brain wo con CLINICAL HISTORY: AMS Technique: Contiguous axial CT images of the head were acquired from the base of the skull to the danilo joshua without intravenous contrast administration. Images were viewed in brain, subdural and [facility] . Automated dose lowering techniques and/or adjustment according to patient size were utilized for this exam. Comparison: Comparison is made to CT head 04/18/2022 Findings: Areas of decreased attenuation are present in the periventricular and subcortical white matter bilate rally consistent with small vessel ischemic disease. Generalized cerebral atrophy with commensurate e nlargement of the ventricles, sulci, and cisterns is also present. There is no acute intracranial hem orrhage or evidence of acute territorial infarction. No shift of the midline structures, mass effect, or extra-axial abnormalities are shown. Atherosclerotic calcifications are present in the intracran ial segments of the internal carotid arteries. Imaged portions of the paranasal sinuses and mastoid air cells are clear. There is evidence of bilat eral cataract extraction and intraocular lens implantation. There are no acute fractures of the calv aria or scalp swelling. Impression: No acute intracranial hemorrhage, no evidence of acute territorial infarction or other acute intracra nial disease process. ACT 112: Negative or not required by law. Electronically signed by: Ray Farooq M.D. 01/18/2023 5:18 PM
[2023-01-18] MEDS ORDERED: SODIUM CHLORIDE 0.9% 1000ML 1,000 ML IV ONE ×2 (17:39→19:59)
[2023-01-18 17:40] LABS: Troponin I High Sensitivity 368.1 pg/ml (0-14)
[2023-01-18 17:58] LABS: Thyroid Stimulating Hormone 12.71 uIu/ml (0.300-4.500)
[2023-01-18 18:28] LABS: Adenovirus PCR Not Detected (NotDetected); Bordetella parapertussis PCR Not Detected (NotDetected); Bordetella pertussis PCR Not Detected (NotDetected); Chlamydia pneumoniae PCR Not Detected (NotDetected); Coronavirus 229E PCR Not Detected (NotDetected); Coronavirus CoV-2 (COVID19)PCR Not Detected (NotDetected); Coronavirus HKU1 PCR Not Detected (NotDetected); Coronavirus NL63 PCR Not Detected (NotDetected); Coronavirus OC43PCR Not Detected (NotDetected); Human Metapneumovirus PCR Not Detected (NotDetected); Influenza A PCR Not Detected (NotDetected); Influenza B PCR Not Detected (NotDetected); Mycoplasma pneumoniae PCR Not Detected (NotDetected); Parainfluenza Virus 1 PCR Not Detected (NotDetected); Parainfluenza Virus 2 PCR Not Detected (NotDetected); Parainfluenza Virus 3 PCR Not Detected (NotDetected); Parainfluenza Virus 4 PCR Not Detected (NotDetected); Respiratory Syncytial VirusPCR Not Detected (NotDetected); Rhinovirus/Enterovirus PCR Not Detected (NotDetected)
[2023-01-18 18:32] LABS: T4 Free Thyroxine 1.38 ng/dl (0.61-1.60)
[2023-01-18] MEDS ORDERED: HALOPERIDOL LACTATE 5 MG/ML 1 ML VIAL IV STA (18:45)
[2023-01-18] MEDS ORDERED: STAT IV STA (18:55)
[2023-01-18 18:56] LABS: Alanine Aminotransferase 168 U/L (7-52); Albumin Globulin Ratio 1.4 (0.9-2); Albumin Level 3.6 gm/dl (3.4-5.0); Alkaline Phosphatase 144 U/L (34-104); Anion Gap 16 (3-11); Aspartate Aminotransferase 166 U/L (13-39); BUN Creatinine Ratio 21.8 (10-20); Bilirubin,Total 0.8 mg/dl (0.2-1.0); Blood Urea Nitrogen 42 mg/dl (6-23); Calcium 8.7 mg/dl (8.6-10.3); Carbon Dioxide 8 mmol/L (21-32); Chloride 107 mmol/L (98-107); Est GFR (African American) 27.8 ml/min; Globulin 2.6 gm/dl (2.5-4.0); Glucose 91 mg/dl (70-99(Fasting)); Potassium 5.2 mmol/L (3.5-5.1); Sodium 131 mmol/L (136-145); Total Protein 6.2 gm/dl (6.0-8.3)
[2023-01-18] MEDS ORDERED: CEFEPIME 2,000 MG/20 ML VIAL IV STA (18:57)
[2023-01-18] MEDS ORDERED: SODIUM BICARBONATE 8.4% 150 MEQ in DEXTROSE 5% 1,000 ML IV SCH (19:00)
[2023-01-18 19:08] LABS: INR 1.7 (0.9-1.1); Prothrombin Time 18.3 Seconds (9.0-12.0)
--- NOTE | 2023-01-18 19:41 | CT Scan Report ---
Exam(s): CT ABDOMEN + PELVIS Without Contrast EXAM: CT Abdomen and Pelvis Without Intravenous Contrast CLINICAL HISTORY: Reason for exam: elevated lactic acid, recent SBO. TECHNIQUE: Axial computed tomography images of the abdomen and pelvis without intravenous contrast. CTDI is 17.63 mGy and DLP is 760.45 mGy-cm. Automated exposure control was utilized for the study. A dose lowering technique was utilized adhering to the principles of ALARA. COMPARISON: No relevant prior studies available. FINDINGS: Limitations: Limited without contrast. Pleural space: Trace left and small right pleural effusions. Heart: Cardiomegaly and pacemaker. Mediastinum: Large hiatal hernia. ABDOMEN: Liver: Unremarkable. Gallbladder and bile ducts: Suggestion mild nonspecific pericholecystic stranding. No radiodense gallstones. Pancreas: Unremarkable. Spleen: Unremarkable. Adrenals: Unremarkable. Kidneys and ureters: Severe atrophy of the left kidney. Stomach and bowel: Colonic diverticula without diverticulitis. Nonobstructive bowel gas pattern. PELVIS: Appendix: No findings to suggest acute appendicitis. Bladder: Unremarkable. Reproductive: Hysterectomy. Subperitoneal space: Presacral edema. ABDOMEN and PELVIS: Intraperitoneal space: Trace amounts of fluid in the peritoneal cavity. Edema in the mesentery/peritoneal cavity. No evidence of pneumatosis or extraluminal air. Bones/joints: Scoliosis. Soft tissues: Dependent edema in the subcutaneous tissues of the back. Vasculature: No acute process. IMPRESSION: 1. No evidence of pneumatosis or extraluminal air. 2. Suggestion mild nonspecific pericholecystic stranding. No radiodense gallstones. Electronically signed by: Allyson Mast M.D. 01/18/23 19:40 PM
[2023-01-18] MEDS ORDERED: ALBUT/IPRATROP 3MG/0.5MG NEB 3 ML VIAL ONE (20:01)
[2023-01-18] MEDS ORDERED: ALBUT/IPRATROP 3MG/0.5MG NEB 3 ML VIAL NEB STA (20:02)
[2023-01-18] MEDS ORDERED: VANCOMYCIN CONSULT ACTIVE PRN (20:04)
[2023-01-18] MEDS ORDERED: VANCOMYCIN HCL 1,250 MG in SODIUM CHLORIDE 0.9% 500 ML IV ONE (20:04)
[2023-01-18 20:08] LABS: Base Excess ABG -17.4 mEq/L (-9-1.8); HCO3 ABG 8 mmol/L (19-24); Oxygen Saturation ABG 97.9 % (90-95); PCO2 ABG 20 mmHg (35-46); PO2 ABG 106 mmHg (80-95); pH ABG 7.22 (7.35-7.45)
[2023-01-18 20:09] LABS: Allen Test POS (Pos)
[2023-01-18] MEDS ORDERED: SODIUM BICARB 8.4% INJ 50 MEQ/50 ML SYR IV STA (20:10)
[2023-01-18] MEDS ORDERED: RAPID SEQUENCE INDUCTION BAG ONE (20:24)
[2023-01-18] MEDS ORDERED: KETAMINE HCL INJ 50 MG/ML 10 ML VIAL IV STA (20:29)
[2023-01-18] MEDS ORDERED: PROPOFOL IV EMULSION 10 MG/ML 100 ML VIAL IV ONE (20:29)
[2023-01-18] MEDS ORDERED: SUCCINYLCHOLINE CHLORIDE 20 MG/ML 10 ML VIAL IV STA (20:29)
[2023-01-18] MEDS: propofoL 1,000 MG/100 ML VIAL IV SCH (20:52)
[2023-01-18] MEDS: fentaNYL citrate 2,500 MCG/250 ML BAG IV ONE ×2 (20:56)
[2023-01-18 21:14] LABS: iSTAT Arterial Blood Gas HCO3 20 meg/L (19-24); iSTAT Arterial Blood Gas pCO2 39 mmHg (35-46); iSTAT Arterial Blood Gas pH 7.32 (7.35-7.45); iSTAT Arterial Blood Gas pO2 69 mmHg (80-95); iSTAT Carbon Dioxide 21 mmol/L (24-31); iSTAT Hematocrit 28 % (37-47); iSTAT Hemoglobin 9.5 g/dl (12.0-16.0); iSTAT Sodium 140 mmol/L (135-144)
--- NOTE | 2023-01-18 21:24 | History & Physical Report ---
Date of Service January 18, 2023 Assessment & Plan (1) Sepsis: Plan: 82 y/o female with a PMHx of ischemic cardiomyopathy 2/2 ID with ICD placed since deactivated, CAD s/p stent placement, adrenal insufficiency, restless leg syndrome, CKD3, RA on prednisone 7.5 mg QD, hypothyroidism, HTN, HLD here for readmission after discharge 01/16 for partial small bowel obstruction now with altered mental status and lab abnormalities who clinically deteriorated in the ED requiring intubation and sedation admitted to ICU level care. Neuro #Acute Encephalopathy Etiology unclear. Likely in the setting of severe sepsis. Sedated and intubated. Propofol for initiation of sedation. Fentanyl gtt. Respiratory #Acute Respiratory Failure Likely in the setting of acidosis and sepsis. Intubated, mechanical ventilation. Will trial for 24 hours per advanced directive. Family at bedside. CV #Extensive cardiac history. CAD with stent placement. Ischemic cardiomyopathy following ID. Had ICD placed - has since been deactivated. Patient DNR. #Elevated troponin, demand ischemia 2/2 septic shock Trend trops Renal/Metabolic #Elevated Anion Gap Metabolic Acidosis Etiology unclear. Lactate 6.8 --> 8.0. ABG: pH 7.22 pCO2 20 pO2 106 HCO3 8. Patient s/p 3 amps of HCO3. Now on HCO3 gtt 150 mL/hr. pH improved after HCO3. Q4H ABG. #MURRAY on CKD Cr 1.93 on admit with electrolyte abnormalities - K 5.2, Na 131, HCO3 8. Cr on discharge 01/16 of 1.3. S/p fluid resuscitation with 2.5 L NS. On bicarb gtt. Continue to monitor. ID #Severe Sepsis Patient tachycardic and tachypneic with elevated lactate and subsequent anion gap acidosis. Etiology unclear, possible intraabdominal. UA with culture, Blood cultures collected. Started on empiric cefepime and vanc. Continue while awaiting culture results. FENGI #Transaminitis Elevated LFTs. Likely in the setting of acute sepsis vs intraabdominal etiology. CT A&P suggestive of mild nonspecific pericholecystic stranding. No radiodense gallstones. Abd US ordered for further evaluation. Rheum #Adrenal Insufficiency Patient on 7.5 mg pred at home. May need stress dosing of steroids in setting of acute sepsis. Heme Elevated INR and PT. HDS. No signs of bleeding. Etiology unclear. Continue to monitor. UA pending. Velázquez in place. Code status: conditional code - DNR, conditional intubation for 24 hrs to trial - family has documentation FENGI: HCO3 gtt, OGT to be placed Dispo: ICU Lines: right fem line, left a-line (2) Increased anion gap metabolic acidosis: (3) Acute hypoxemic respiratory failure: (4) Acute encephalopathy: (5) Chronic kidney disease, stage III (moderate): (6) Adrenal insufficiency: (7) CAD (coronary artery disease): (8) Chronic systolic CHF (congestive heart failure): (9) Rheumatoid arthritis: History of Present Illness Chief Complaint: lethargy, illness Primary Care Provider: Maddison Metzger MD 82 y/o female with a PMHx of ischemic cardiomyopathy 2/2 ID with ICD placed since deactivated, CAD s/p stent placement, adrenal insufficiency, restless leg syndrome, CKD3, RA on prednisone 7.5 mg QD, hypothyroidism, HTN, HLD here for readmission after discharge 01/16 for partial small bowel obstruction now with altered mental status and lab abnormalities. Patient was seen in heart failure clinic and it was recommended that she go to the ED by the clinician seen there as patient was reportedly responding to internal stimuli and acutely confused. History limited as patient intubated and sedated at the time of evaluation. Upon presentation there was concern for severe sepsis with tachycardia, tachypnea, acute encephalopathy, and elevated lactate of 6.8 --> 8.0. Patient was fluid resuscitated with 2.5 L NS. CMP notable for elevated LFTs, MURRAY with Cr 1.93 on admit with electrolyte abnormalities - K 5.2, Na 131, HCO3 8. CBC unremarkable. HsTrop 368.1. She was also started on empiric abx zosyn/cefepime. She was found to have an elevated gap metabolic acidosis with a pH of 7.22 and a HCO3 of 8. Patient rapidly clinically deteriorated with acute respiratory failure requiring intubation. She ended up requiring 3 amps of HCO3. Was also given calcium chloride and ketamine. For further information on ED course see ED provider note. Allergies Allergy/AdvReac Type Severity Reaction Status Date / Time gabapentin AdvReac Intermediate SHAKING, Verified 01/18/23 15:41 JERKING MOVEMENTS ondansetron [From Zofran] AdvReac Intermediate Unknown Unverified 01/18/23 17:15 benztropine [From Cogentin] AdvReac Shakiness, Verified 01/18/23 15:41 jerking movements metoclopramide [From Reglan] AdvReac Shakiness, Verified 01/18/23 15:41 jerking movements Home Medications Medication Instructions Recorded Confirmed Type lorazepam 0.5 mg tablet 0.5 mg PO Q4H PRN anxiety #20 tabs 04/30/22 01/18/23 Rx prednisone 5 mg tablet 7.5 mg PO DAILY 05/06/22 01/18/23 History levothyroxine 100 mcg tablet 100 mcg PO DAILY #90 tabs 10/15/22 01/18/23 Rx acetaminophen 500 mg oral powder 1,000 mg PO Q6H PRN Pain 11/08/22 01/18/23 History packet (Tylenol Extra Strength) pantoprazole 40 mg tablet,delayed 40 mg PO BID #180 tabs 11/10/22 01/18/23 Rx release rotigotine 2 mg/24 hour 2 mg transdermal DAILY 11/10/22 01/18/23 History transdermal 24 hour patch (Neupro) furosemide 20 mg tablet (Lasix) 20 mg PO DAILY PRN weight gain #90 11/30/22 01/18/23 Rx tabs tramadol 50 mg tablet 50 mg PO TID PRN pain #90 tabs 12/20/22 01/18/23 Rx amoxicillin 875 mg-potassium 1 tab PO BID #20 tabs 01/16/23 01/18/23 Rx clavulanate 125 mg tablet hydroxychloroquine 200 mg tablet 200 mg PO DAILY #30 tabs 01/17/23 01/18/23 Rx (Plaquenil) Past Med/Surg History Medical History Acid reflux Acute encephalopathy Acute hyponatremia Acute hyponatremia Acute hypoxemic respiratory failure Acute metabolic encephalopathy Acute ID Acute UTI CAD (coronary artery disease) ID in [place] in 02/2022. 1 stent placed (believe LCx, but not sure). 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 Dehydration, mild DVT prophylaxis DVT prophylaxis Dysuria Elevated troponin Hiatal hernia History of Hodgkin's lymphoma S/P RADIATION/CHEMO (2000) History of pelvic fracture Hyperlipidemia Hypertension Hypothyroidism Ischemic cardiomyopathy Mixed stress and urge urinary incontinence Nausea & vomiting On amiodarone therapy Restless leg syndrome Rheumatoid arthritis ON CHRONIC PREDNISONE 7.5MG DAILY Sciatica Scoliosis Stage 3b chronic kidney disease Ventricular tachycardia Surgical History H/O foot surgery 2ND RT TOE REMOVED History of bilateral cataract extraction RIGHT CATARACT EXTRACTION WITH IOL= 04/05/18= MAC SEDATION AT [facility] History of colonoscopy History of gynecologic surgery ANTERIOR AND POSTERIOR REPAIR - colporrhaphy (for pelvic relaxation) History of removal of cyst HEAD (BENIGN) History of tonsillectomy History of tooth extraction History of total knee replacement RT History of urologic surgery URETEROLYSIS- 04/1995 [facility] S/P coronary artery stent placement S/P vaginal hysterectomy Status post right knee replacement Family History Mother , age 80 Cardiac disorder Family history of lung cancer Brother Diabetes Family history of lung cancer Family history of diabetes mellitus Daughter Breast cancer Father , age 57 Cardiac disorder Grandmother Diabetes Aunt Ovarian cancer paternal aunt Grandmother (Paternal) Family history of diabetes mellitus Other Cancer Heart disease No family history of adverse response to anesthesia No family history of bleeding disorder Denies family history of Colon cancer Colorectal cancer Social History Smoking Status: Former smoker Tobacco Type: Cigarettes Cigarettes Per Day: QUIT + 30 YEARS AGO; Second Hand Exposure: No; Do You Dip or Chew Tobacco: No; Hx Alcohol Use: No Hx Substance Use: No Preferred Language: Setswana Communication Ability: Unable Communication Ability Comment: Non-verbal, confused at this time. 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 [employer] Other Information That Helps Us Care for You: No Feels Safe at Home: Yes Childhood Exposure to Second-Hand Smoke: Yes (parent smoked) Diet: regular Dental Care, Regularly: Yes Sunscreen Use: Yes (occasionally) Assistive Devices: Walker Review of Systems Review of Systems: See HPI Physical Exam Physical Exam: Gen: ill appearing intubated female HEENT: AT NC CV: warm and well perfused, palpable pulses Resp: mechanical ventilation Abd: non-distended : Velázquez in place Neuro: sedated, moving all extremities, withdrawals to painful stimuli Psych: sedated Skin: no rashes or bruising noted Results & Data Results & Data Vital Signs (Past 12 Hours) Vital Signs Temp Pulse Pulse Resp BP BP Pulse Ox 01/18/23 20:55 26 H 01/18/23 20:37 100 H 01/18/23 20:39 92 H 26 H 144/92 H 100 01/18/23 19:45 84 L 01/18/23 19:30 101 H 20 96 01/18/23 19:11 118/88 01/18/23 19:00 87 34 H 01/18/23 18:30 90 30 H 01/18/23 18:00 86 29 H 01/18/23 17:30 93 H 17 01/18/23 17:02 98 H 31 H 01/18/23 16:38 92 H 29 H 97 01/18/23 19:31 96 01/18/23 16:38 91 H 01/18/23 16:59 25 H 97 01/18/23 16:24 36.0 C L 95 H 20 153/84 H 95 O2 Del Method O2 Flow Rate FiO2 01/18/23 20:55 40 01/18/23 20:37 01/18/23 20:39 Mechanical Vent 40 01/18/23 19:45 Room Air 01/18/23 19:30 01/18/23 19:11 01/18/23 19:00 01/18/23 18:30 01/18/23 18:00 01/18/23 17:30 01/18/23 17:02 01/18/23 16:38 01/18/23 19:31 Oxymask 5 01/18/23 16:38 01/18/23 16:59 Room Air 01/18/23 16:24 Room Air Laboratory Results 01/18/23 16:48 01/18/23 18:16 01/18/23 01/18/23 01/18/23 19:52 19:52 21:00 POC pCO2 39 POC pO2 69 L ABG pH 7.22 L ABG pCO2 20 L ABG pO2 106 H ABG HCO3 8 L ABG O2 Saturation 97.9 H ABG Base Excess -17.4 L VBG pH Cancelled VBG pCO2 Cancelled VBG pO2 Cancelled VBG HCO3 Cancelled VBG O2 Saturation Cancelled VBG Base Excess Cancelled Diagnostic Findings CT Head/Brain wo contrast 01/18/23: Findings: Areas of decreased attenuation are present in the periventricular and subcortical white matter bilaterally consistent with small vessel ischemic di sease. Generalized cerebral atrophy with commensurate enlargement of the ventricles, sulci, and cisterns is also present. There is no acute intracranial hemorrhage or evidence of acute territorial infarction. No shift of the midline structures, mass effect, or extra-axial abnormalities are shown. A therosclerotic calcifications are present in the intracranial segments of the internal carotid arteries.Imaged portions of the paranasal sinuses and mastoid air cells are clear. There is evidence of bilateral cataract extraction and intraocular lens implantation. There are no acute fractures of the calvaria or scalp swelling. IMPRESSION No acute intracranial hemorrhage, no evidence of acute territorial infarction or other acute intracranial disease process. XR Chest 1V portable 01/18/23: FINDINGS: Pacemaker defibrillator is seen. Cardiomegaly is noted. The aortic arch is calcified. Lungs are underinflated but clear. Small right pleural effusion. IMPRESSION: Small right pleural effusion without evidence of acute abnormality. CTAP 01/18/23: FINDINGS: Limitations: Limited without contrast. Pleural space: Trace left and small right pleural effusions. Heart: Cardiomegaly and pacemaker. Mediastinum: Large hiatal hernia. ABDOMEN: Liver: Unremarkable. Gallbladder and bile ducts: Suggestion mild nonspecific pericholecystic stranding. No radiodense gallstones. Pancreas: Unremarkable. Spleen: Unremarkable. Adrenals: Unremarkable. Kidneys and ureters: Severe atrophy of the left kidney. Stomach and bowel: Colonic diverticula without diverticulitis. Nonobstructive bowel gas pattern. PELVIS: Appendix: No findings to suggest acute appendicitis. Bladder: Unremarkable. Reproductive: Hysterectomy. Subperitoneal space: Presacral edema. ABDOMEN and PELVIS: Intraperitoneal space: Trace amounts of fluid in the peritoneal cavity. Edema in the mesentery/peritoneal cavity. No evidence of pneumatosis or extraluminal air. Bones/joints: Scoliosis. Soft tissues: Dependent edema in the subcutaneous tissues of the back. Vasculature: No acute process. IMPRESSION: 1. No evidence of pneumatosis or extraluminal air. 2. Suggestion mild nonspecific pericholecystic stranding. No radiodense gallstones. Supervising Physician Co-Signing Physician Notes Resident Supervision Note: I personally saw and examined the patient. I verified all haynes points and agree with Emilie Lisa PGY-1 with the following exceptions and/or additions: Subjective: 82-year-old female past medical history significant for small bowel obstruction, CKD stage III, HFrEF with AICD, CAD, hypertension, Hodgkin's l ymphoma, hypothyroid presented for around 2 days of increased lethargy, shortness of breath, and weakness. Collateral collected chiefly by ER provider as patient is intubated and sedated at time of my evaluation. Recently discharged from [facility] on 01/16 following inpatient stay for small bowel obstru ction. Did have some symptoms of nausea on day of discharge, had right upper quadrant ultrasound which was unremarkable per radiology read. Has been having decreased oral intake since discharge home. On presentation with blood pressure 150s/80s, mildly tachycardic in the 90s, afebrile, saturating 95% on room air. With rapid decline in the short time in the ER, also with worsening shortness of breath. Labs notable for a ABG 7.2 09/27/106/8, sodium 131, potassium 5.2, CO2 8, elevated anion gap, MURRAY with creatinine of 1.93. Initially with elevated lactate to 6.8, elevated on repeat check to 8.0 and started on bicarbonate drip. Noted to have elevated LFTs from recent admission with AST/ALT/alk phos in the 100s. Troponin 368, TSH was 12.7 with free T4 of 1.38. Bio fire negative. Chest x-ray with poor inspiration, small right pleural effusion but otherwise no noted abnormalities. CTAP performed with suggestion of mild nonspecific pericholecystic stranding without radiodense gallstones, no evidence of pneumatosis or extraluminal air. Head CT performed without acute intracranial hemorrhage or acute CVA. Patient was intubated and sedated, A-line and central line placed, ICU notified. Patient's family elected for attempt at resuscitative measures, however if patient passes overnight family desires no chest compressions/defibrillation. Physical exam: Vitals reviewed Gen: intubated, sedated CV: RRR no murmurs Pulm: CTAB Abd: +BS soft, no masses Ext: no edema, dusky toes on bilateral feet, weak pulses (present on US eval) Skin: no rashes Neuro: intubated and sedated, no notable defects otherwise Labs, Rads, and ECG reviewed Assessment and Plan: Septic shock, anion gap metabolic acidosis: unknown source, perhaps intraabdominal/mesenteric ischemia given some pericholecystic stranding on CTAP. Coverage broad spectrum with vanc/Zosyn. Currently on bicarb gtt for septic s hock and high anion gap metabolic acidosis. Trend lactate, continue gtt. Currently on propofol for pressure support, intubated and sedated. NSTEMI: suspect demand ischemia in the setting of septic shock, trend troponin, serial EKGs. MURRAY on CKD, Hyperkalemia: Creatinine 1.93, increased from 1.31 on discharge 01/16. IV fluids as above, suspected prerenal due to septic shock. Hyperkalemia likely 2/2 poor renal perfusion, IVF and continued monitoring. Transaminitis: Perhaps shock liver, vs. gallbladder/liver pathology given pericholecystic stranding. Care as above with IV abx, trend LFTs. Adrenal insufficiency: On daily prednisone therapy, may need IV steroids in the setting of septic shock, defer to ICU. Protonix IV for stress ulcer ppx. Care at this time per ICU providers, Hospitalist service will follow. Care otherwise as described above in A&P. Patient is conditional code, attempt i ntubation x24 hours and see if can improve clinically and determine underlying possibly reversible etiologies of presentation, otherwise proceed with palliative measures. Resident Activity Tracking Resident Involvement: Resident Care Provided Care Provided: Adult Hospital Medicine (7) CAD (coronary artery disease) Associated angina: without angina Coronary Disease-Associated Artery/Lesion type: [place] artery [place] vs. transplanted heart: [place] heart Qualified Code(s): I25.10 - Atherosclerotic heart disease of [place] coronary artery without angina pectoris (9) Rheumatoid arthritis Laterality: bilateral Rheumatoid arthritis location: hand Rheumatoid factor presence: without rheumatoid factor Qualified Code(s): M06.041 - Rheumatoid arthritis without rheumatoid factor, right hand; M06.042 - Rheumatoid arthritis without rheumatoid factor, left hand
--- NOTE | 2023-01-18 21:31 | Critical Care Consultation ---
Date of Consultation January 18, 2023 Assessment & Plan (1) CHALO (acute liver failure): (2) Respiratory failure: (3) ICD (implantable cardioverter-defibrillator), single, in situ: (4) Chronic kidney disease, stage III (moderate): (5) Hyperlipidemia: (6) Chronic systolic CHF (congestive heart failure): (7) Ischemic cardiomyopathy: (8) CAD (coronary artery disease): (9) Shock: Plan Reason Critically Ill: Patient presents with acute severe metabolic acidosis in the setting of elevated liver enzymes, encephalopathy, and MURRAY. She was intubated in the EMD to allow for resuscitation and correction of her acid base balance with her known history of sever ICM with EF 25-30%. If not reversible or improving and if unable to wean from ventilator transition to palliation. Neuro - Metabolic Encephalopathy, Sedation for mechanical Ventilation CAM ICU: JOB - Patient presents with acute metabolic encephalopathy that rapidly worsened- likely cause is CHALO with Metabolic Acidosis - Head CT on arrival without acute process - Ammonia level is negative - Sedation for mechanical ventilation- Wean down Fentanyl to off and attempt to manage with Propofol with PRN Fent boluses if able Cardiac - HFrEF, ICM, Elevated HScTNI, Shock, MILD MR - ECG is without STEMI - She has not needed vasopressor support and has remained hemodynamically stable - Volume status appears to be hypovolemic on arrival as no evidence of peripheral congestion or abdominal edema/ascites as well as no worsening in acute pulmonary edema - Evidence of multiple organ dysfunction - see GI section below - Follow bedside POCUS and UO- decrease IVF when close to euvolemia- diurese at that time - HScTNI elevated likely to demand- trend Respiratory - Acute respiratory failure requiring intubation - In the setting of hyperventilation for compensation of metabolic acidosis - Was not tachycardic or hypoxic and with minimal oxygen requirements so doubt PE at this time - CXR is without opacify, with small pleural effusion and respiratory biofire is negative GI - CHALO, Elevated INR - Patient with AST 166 and ALT 168- Alk PO4 144 with normal t.bili and without jaundiced - Patient arrives with no history of cirrhosis- she is with elevated INR to 1.7 and acute onset of acute encephalopathy Grade II that progressed to Grade III and lactic acidosis - Overall inciting event is not clear at this time- DDX: however ischemia/vascular congestion following metabolic encephalopathy +/-cardiogenic shock vs. hepatic thrombus vs. infective vs. medication induced vs. CHF exacerb ation vs. Hypovolemia - she is with normal bili - new medications at previous discharge- amoxicillin- usually not offender in this setting but possible- hold - Patient had previous work up for her elevated LFTS in February 2022 when she was originally admitted following her acute heart failure exacerbation- Negative for Hep A, Hep B, Hep C that were negative - she has been with normal LFTs and without evidence of cirrhosis - Tylenol is negative - Ammonia is 50 - INR 1.7- Vitamin K 10mg IV - She is not associated with overt hypotension but with organ dysfunction more associated with hepatic congestion from heart failure - CT/AP with non specific stranding around gallbladder and is without gallstones- normal Ultrasound last week- doubt acute choley- has history of edematous gallbladder secondary to hypervolemia - Will obtain liver ultrasound with Doppler RENAL/LYTES - MURRAY on CKD, AGAP Metabolic Acidosis, Hyperkalemia - Likely pre-renal she is now starting to make urine following volume- she received 2.5 liters crystalloid in EMD - Received 3 AMPS NAHCO3 prior to intubation and Isotonic HCO3 infusion at 150ml per hour- continue x 1 liter - Improvement in urine output, PH stabilized and holding, HCO3 increasing - Hyperkalemia improved with correction of acidosis and urine output - No acute needs - Rdz placed for accurate HEIDI ENDO - Hypothyroidism - On Synthroid at home - check TSH/T4- she is with TSH of 12 with normal T4 so doubt decompensated thyrotoxicosis - Check Random Cortisol - if hemodynamic unstable or hypothermic- will start stress dose steroids HEME - HX of RA on immunosuppressant agents - Hold immunosuppressant agents ID - Normal WBC and normal PCT - Received Cefepime and Vancomycin in EMD- currently without source - Urine clean - Afebrile without leukocytosis and without SIRS - Hold on further abx at this time LINES/IV ACCESS - CVL, Arterial line, ETT, Rdz catheter, OGT Continue use of these lines DVT PROPHYLAXIS - SCDS DISPO - ICU while intubated- trial of therapeutics for reversible causes and treatments of organ dysfunction. I have personally spent 65 minutes of critical care time in the direct management of this patient. This is a life/limb threatening event. This includes time spent evaluating patient, direct bedside care, chart review, placing orders, interpretation of diagnostic studies, discussion with consultants, patient, and family members, as well as other required patient management activities. This time is exclusive of all separately billable procedures, and separate from and in addition to any other critical care service time. Thank you for allowing us to participate in the care of this patient. Please refer to my attending physician's documentation for any further recommendations. 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 Patient has an AICD that is de-activated- she was previously on Hospice in for her HFrEF. Patient comes to the EMD today for complaints of increasing sleepiness and encephalopathy for the past 2 days- she was also seen at the HF clinic today noting hallucinations and confusion. Patient was previously admitted 01/10/23 and discharged on 01/16/23 for partial small bowel obstruction that improved with conservative management and was tolerating clear diet that was advanced. She was also started on Augmentin at that time for presumed sinus infection. Family reports that she has had decrease oral intake since that time as well as just not doing anything for herself at home. She was also not receiving her Lasix at home upon discharge. In the EMD the patient was initially awake and conversant and rapidly changed to encephalopathic with grunting respirations and with mottled extremities when I saw her. She was not hypoxic. She was noted to have a lactate of 8.0 with AG of 16. Noted increase in her LFTs as well as INR- she is without leukocytosis and her PCT is negative. She had a RUQUS performed on 01/16/23 that was negative in regards to her CTA/P that was done in EMD with nonspecific stranding around gall-bladder. Due to her worsening encephalopathy related to her respiratory status and ability to continue to compensate for her metabolic acidosis, a vandana discussion was had with her daughters regarding treatment options at this time. In regard to supporting volume resuscitation and correction of her metabolic derangements, she would likely need intubated to attempt to worsen pulmonary edema and support oxygenation needs- Daughters want to attempt to treat an underlying reversible cause at this time, if she fails therapy continues to show evidence of organ dysfunction then change to palliative extubation. She was with poor venous access in the EMD and following intubation required access for continued therapy- a right femoral vein catheter was placed under sterile conditions as well as left radial arterial line. Discussed this with the family during initial conversation. Needs, risks, benefits described and Ok to proceed with verbal consent. Patient is DNR in event of Cardiac Arrest Allergies Allergy/AdvReac Type Severity Reaction Status Date / Time gabapentin AdvReac Intermediate SHAKING, Verified 01/18/23 15:41 JERKING MOVEMENTS ondansetron [From Zofran] AdvReac Intermediate Unknown Unverified 01/18/23 17:15 benztropine [From Cogentin] AdvReac Shakiness, Verified 01/18/23 15:41 jerking movements metoclopramide [From Reglan] AdvReac Shakiness, Verified 01/18/23 15:41 jerking movements Home Medications Medication Instructions Recorded Confirmed Type lorazepam 0.5 mg tablet 0.5 mg PO Q4H PRN anxiety #20 tabs 04/30/22 01/18/23 Rx prednisone 5 mg tablet 7.5 mg PO DAILY 05/06/22 01/18/23 History levothyroxine 100 mcg tablet 100 mcg PO DAILY #90 tabs 10/15/22 01/18/23 Rx acetaminophen 500 mg oral powder 1,000 mg PO Q6H PRN Pain 11/08/22 01/18/23 History packet (Tylenol Extra Strength) pantoprazole 40 mg tablet,delayed 40 mg PO BID #180 tabs 11/10/22 01/18/23 Rx release rotigotine 2 mg/24 hour 2 mg transdermal DAILY 11/10/22 01/18/23 History transdermal 24 hour patch (Neupro) furosemide 20 mg tablet (Lasix) 20 mg PO DAILY PRN weight gain #90 11/30/22 01/18/23 Rx tabs tramadol 50 mg tablet 50 mg PO TID PRN pain #90 tabs 12/20/22 01/18/23 Rx amoxicillin 875 mg-potassium 1 tab PO BID #20 tabs 01/16/23 01/18/23 Rx clavulanate 125 mg tablet hydroxychloroquine 200 mg tablet 200 mg PO DAILY #30 tabs 06/12/23 06/13/23 Rx (Plaquenil) Patient History Medical History Acid reflux Acute encephalopathy Acute hyponatremia Acute hyponatremia Acute hypoxemic respiratory failure Acute metabolic encephalopathy Acute CT Acute UTI CAD (coronary artery disease) CT in [place] in 02/2022. 1 stent placed (believe LCx, but not sure). 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 Dehydration, mild DVT prophylaxis DVT prophylaxis Dysuria Elevated troponin Hiatal hernia History of Hodgkin's lymphoma S/P RADIATION/CHEMO (2000) History of pelvic fracture Hyperlipidemia Hypertension Hypothyroidism Ischemic cardiomyopathy Mixed stress and urge urinary incontinence Nausea & vomiting On amiodarone therapy Restless leg syndrome Rheumatoid arthritis ON CHRONIC PREDNISONE 7.5MG DAILY Sciatica Scoliosis Stage 3b chronic kidney disease Ventricular tachycardia Surgical History H/O foot surgery 2ND RT TOE REMOVED History of bilateral cataract extraction RIGHT CATARACT EXTRACTION WITH IOL= 04/05/18= MAC SEDATION AT [facility] History of colonoscopy History of gynecologic surgery ANTERIOR AND POSTERIOR REPAIR - colporrhaphy (for pelvic relaxation) History of removal of cyst HEAD (BENIGN) History of tonsillectomy History of tooth extraction History of total knee replacement RT History of urologic surgery [place] [facility] [place] artery stent placement S/P vaginal hysterectomy Status post right knee replacement Family History Mother , age 80 Cardiac disorder Family history of lung cancer Brother Diabetes Family history of lung cancer Family history of diabetes mellitus Daughter Breast cancer Father , age 57 Cardiac disorder Grandmother Diabetes Aunt Ovarian cancer paternal aunt Grandmother (Paternal) Family history of diabetes mellitus Other Cancer Heart disease No family history of adverse response to anesthesia No family history of bleeding disorder Denies family history of Colon cancer Colorectal cancer Social History Smoking Status: Former smoker Tobacco Type: Cigarettes Cigarettes Per Day: QUIT + 30 YEARS AGO; Second Hand Exposure: No; Do You Dip or Chew Tobacco: No; Hx Alcohol Use: No Hx Substance Use: No Preferred Language: Beninese Communication Ability: Unable Communication Ability Comment: Non-verbal, confused at this time. 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 [employer] Feels Safe at Home: Yes Childhood Exposure to Second-Hand Smoke: Yes (parent smoked) Diet: regular Dental Care, Regularly: Yes Sunscreen Use: Yes (occasionally) Assistive Devices: Walker Review of Systems Review of Systems: REVIEW OF SYSTEMS: Unable to be obtained secondary to patient encephalopathy Physical Exam Physical Exam: PHYSICAL EXAM: ENT: PERRL, EOMI, no pharyngeal exudate, mucous membranes dry Neuro: AAO x 0, encephalopathic with grunting responses, rolling around in bed, and grabbing at surrounding items, Chest: equal rise and fall of the chest, no accessory muscle use, no heaves or thrills, Clear to auscultation, on room air, Cardiac: Regular rate and rhythm, telemetry reviewed, skin warm dry, cap refill >3 seconds, peripheral pules weak and thready, trace edema to extremities GI: NABS x 4 quadrants, soft, unable to obtain further exam : rdz placed minimal urine output Extremities: Normal inspection, no peripheral edema or erythema, calfs nontender to palpation Psych: Normal mood and affect Skin: no rash or erythema, old bruising noted in abdomen from previous VTE prophylaxis injecitons Results & Data Results & Data Vital Signs (Past 12 Hours) Vital Signs Temp Pulse Pulse Resp BP BP Pulse Ox 01/18/23 21:20 68 26 H 100 01/18/23 21:20 119/71 01/18/23 21:10 85 26 H 98 01/18/23 21:10 103/64 01/18/23 21:00 88 26 H 98 01/18/23 20:50 92 H 26 H 97 01/18/23 20:45 62 21 95 01/18/23 20:45 124/91 01/18/23 20:43 103/71 01/18/23 20:43 81 26 H 100 01/18/23 20:41 109/67 01/18/23 20:41 89 26 H 100 01/18/23 20:40 84 27 H 100 01/18/23 20:38 144/92 H 01/18/23 20:38 84 29 H 100 01/18/23 20:36 104 H 20 98 01/18/23 20:20 107 H 34 H 92 01/18/23 20:10 104 H 30 H 97 01/18/23 20:03 104 H 17 95 01/18/23 20:03 140/89 01/18/23 20:00 104 H 26 H 98 01/18/23 19:50 94 H 18 96 01/18/23 19:40 103 H 17 97 01/18/23 20:55 26 H 01/18/23 20:37 100 H 01/18/23 20:39 92 H 26 H 144/92 H 100 01/18/23 19:45 84 L 01/18/23 19:30 101 H 20 96 01/18/23 19:11 118/88 01/18/23 19:00 87 34 H 01/18/23 18:30 90 30 H 01/18/23 18:00 86 29 H 01/18/23 17:30 93 H 17 01/18/23 17:02 98 H 31 H 01/18/23 16:38 92 H 29 H 97 01/18/23 19:31 96 01/18/23 16:38 91 H 01/18/23 16:59 25 H 97 01/18/23 16:24 36.0 C L 95 H 20 153/84 H 95 O2 Del Method O2 Flow Rate FiO2 01/18/23 21:20 40 01/18/23 21:20 01/18/23 21:10 40 01/18/23 21:10 01/18/23 21:00 40 01/18/23 20:50 40 01/18/23 20:45 40 01/18/23 20:45 01/18/23 20:43 01/18/23 20:43 40 01/18/23 20:41 01/18/23 20:41 40 01/18/23 20:40 40 01/18/23 20:38 01/18/23 20:38 40 01/18/23 20:36 01/18/23 20:20 01/18/23 20:10 01/18/23 20:03 01/18/23 20:03 01/18/23 20:00 01/18/23 19:50 01/18/23 19:40 01/18/23 20:55 40 01/18/23 20:37 01/18/23 20:39 Mechanical Vent 40 01/18/23 19:45 Room Air 01/18/23 19:30 01/18/23 19:11 01/18/23 19:00 01/18/23 18:30 01/18/23 18:00 01/18/23 17:30 01/18/23 17:02 01/18/23 16:38 01/18/23 19:31 Oxymask 5 01/18/23 16:38 01/18/23 16:59 Room Air 01/18/23 16:24 Room Air Laboratory Results Abnormal lab results 01/18/23 01/18/23 01/18/23 Range/Units 16:48 16:48 16:48 POC Hgb (12.0-16.0) g/dl POC Hct (37-47) % MCHC 31.5 L (32.0-36.0) g/dL RDW Std Deviation 54.6 H (36.4-46.3) fL RDW Coeff of Sachin 17.4 H (11.5-14.5) % MPV 9.2 L (9.4-12.4) fL PT (9.0-12.0) Seconds INR (0.9-1.1) POC pH (7.35-7.45) POC pO2 (80-95) mmHg POC Total CO2 (24-31) mmol/L ABG pH (7.35-7.45) ABG pCO2 (35-46) mmHg ABG pO2 (80-95) mmHg ABG HCO3 (19-24) mmol/L ABG O2 Saturation (90-95) % ABG Base Excess (-9-1.8) mEq/L Sodium (136-145) mmol/L Potassium (3.5-5.1) mmol/L Carbon Dioxide (21-32) mmol/L Anion Gap (3-11) BUN (6-23) mg/dl Creatinine (0.6-1.2) mg/dl BUN/Creatinine Ratio (10-20) Lactate (0.4-2.0) mmol/L AST (13-39) U/L ALT (7-52) U/L Alkaline Phosphatase (34-104) U/L Troponin I High Sens 368.1 H* (0-14) pg/ml TSH 12.710 H (0.300-4.500) uIu/ml 01/18/23 01/18/23 01/18/23 Range/Units 17:18 18:16 18:16 POC Hgb (12.0-16.0) g/dl POC Hct (37-47) % MCHC (32.0-36.0) g/dL RDW Std Deviation (36.4-46.3) fL RDW Coeff of Sachin (11.5-14.5) % MPV (9.4-12.4) fL PT 18.3 H (9.0-12.0) Seconds INR 1.7 H (0.9-1.1) POC pH (7.35-7.45) POC pO2 (80-95) mmHg POC Total CO2 (24-31) mmol/L ABG pH (7.35-7.45) ABG pCO2 (35-46) mmHg ABG pO2 (80-95) mmHg ABG HCO3 (19-24) mmol/L ABG O2 Saturation (90-95) % ABG Base Excess (-9-1.8) mEq/L Sodium 131 L (136-145) mmol/L Potassium 5.2 H (3.5-5.1) mmol/L Carbon Dioxide 8 L* (21-32) mmol/L Anion Gap 16 H (3-11) BUN 42 H (6-23) mg/dl Creatinine 1.93 H (0.6-1.2) mg/dl BUN/Creatinine Ratio 21.8 H (10-20) Lactate 6.8 H* (0.4-2.0) mmol/L AST 166 H (13-39) U/L ALT 168 H (7-52) U/L Alkaline Phosphatase 144 H (34-104) U/L Troponin I High Sens (0-14) pg/ml TSH (0.300-4.500) uIu/ml 01/18/23 01/18/23 01/18/23 Range/Units 19:52 19:52 21:00 POC Hgb 9.5 L (12.0-16.0) g/dl POC Hct 28 L (37-47) % MCHC (32.0-36.0) g/dL RDW Std Deviation (36.4-46.3) fL RDW Coeff of Sachin (11.5-14.5) % MPV (9.4-12.4) fL PT (9.0-12.0) Seconds INR (0.9-1.1) POC pH 7.32 L (7.35-7.45) POC pO2 69 L (80-95) mmHg POC Total CO2 21 L (24-31) mmol/L ABG pH 7.22 L (7.35-7.45) ABG pCO2 20 L (35-46) mmHg ABG pO2 106 H (80-95) mmHg ABG HCO3 8 L (19-24) mmol/L ABG O2 Saturation 97.9 H (90-95) % ABG Base Excess -17.4 L (-9-1.8) mEq/L Sodium (136-145) mmol/L Potassium (3.5-5.1) mmol/L Carbon Dioxide (21-32) mmol/L Anion Gap (3-11) BUN (6-23) mg/dl Creatinine (0.6-1.2) mg/dl BUN/Creatinine Ratio (10-20) Lactate 8.0 H* (0.4-2.0) mmol/L AST (13-39) U/L ALT (7-52) U/L Alkaline Phosphatase (34-104) U/L Troponin I High Sens (0-14) pg/ml TSH (0.300-4.500) uIu/ml Diagnostic Findings Chest X-Ray 01/18/23 16:40 XR chest 1V portable CLINICAL HISTORY: weakness TECHNIQUE: Single frontal radiograph of the chest was obtained. Comparison: Comparison is made to chest radiograph 01/15/2023 FINDINGS: Pacemaker defibrillator is seen. Cardiomegaly is noted. The aortic arch is calcified. Lungs are underinflated but clear. Small right pleural effusion. IMPRESSION: Small right pleural effusion without evidence of acute abnormality. ACT 112: Negative or not required by law. Electronically signed by: Ray Farooq M.D. 01/18/2023 5:[address] 01/18/23 16:42 CT head/brain wo con CLINICAL HISTORY: AMS Technique: Contiguous axial CT images of the head were acquired from the base of the skull to the vertex without intravenous contrast administration. Images were viewed in brain, subdural and bone windows. Automated dose lowering techniques and/or adjustment according to patient size were utilized for this exam. Comparison: Comparison is made to CT head 04/18/2022 Findings: Areas of decreased attenuation are present in the periventricular and subcortical white matter bilaterally consistent with small vessel ischemic disease. Generalized cerebral atrophy with commensurate enlargement of the ventricles, sulci, and cisterns is also present. There is no acute intracranial hemorrhage or evidence of acute territorial infarction. No shift of the midline structures, mass effect, or extra-axial abnormalities are shown. Atherosclerotic calcifications are present in the intracranial segments of the internal carotid arteries. Imaged portions of the paranasal sinuses and mastoid air cells are clear. There is evidence of bilateral cataract extraction and intraocular lens implantation. There are no acute fractures of the calvaria or scalp swelling. Impression: No acute intracranial hemorrhage, no evidence of acute territorial infarction or other acute intracranial disease process. ACT 112: Negative or not required by law. Electronically signed by: Ray Farooq M.D. 01/18/2023 5:18 PM Abdomen/Pelvis CT 01/18/23 18:56 Exam(s): CT ABDOMEN + PELVIS Without Contrast EXAM: CT Abdomen and Pelvis Without Intravenous Contrast CLINICAL HISTORY: Reason for exam: elevated lactic acid, recent SBO. TECHNIQUE: Axial computed tomography images of the abdomen and pelvis without intravenous contrast. CTDI is 17.63 mGy and DLP is 760.45 mGy-cm. Automated exposure control was utilized for the study. A dose lowering technique was utilized adhering to the principles of ALARA. COMPARISON: No relevant prior studies available. FINDINGS: Limitations: Limited without contrast. Pleural space: Trace left and small right pleural effusions. Heart: Cardiomegaly and pacemaker. Mediastinum: Large hiatal hernia. ABDOMEN: Liver: Unremarkable. Gallbladder and bile ducts: Suggestion mild nonspecific pericholecystic stranding. No radiodense gallstones. Pancreas: Unremarkable. Spleen: Unremarkable. Adrenals: Unremarkable. Kidneys and ureters: Severe atrophy of the left kidney. Stomach and bowel: Colonic diverticula without diverticulitis. Nonobstructive bowel gas pattern. PELVIS: Appendix: No findings to suggest acute appendicitis. Bladder: Unremarkable. Reproductive: Hysterectomy. Subperitoneal space: Presacral edema. ABDOMEN and PELVIS: Intraperitoneal space: Trace amounts of fluid in the peritoneal cavity. Edema in the mesentery/peritoneal cavity. No evidence of pneumatosis or extraluminal air. Bones/joints: Scoliosis. Soft tissues: Dependent edema in the subcutaneous tissues of the back. Vasculature: No acute process. IMPRESSION: 1. No evidence of pneumatosis or extraluminal air. 2. Suggestion mild nonspecific pericholecystic stranding. No radiodense gallstones. Electronically signed by: Allyson Mast M.D. 01/18/23 19:40 PM Medications Administered Abnormal lab results 01/18/23 01/18/23 01/18/23 Range/Units 16:48 16:48 16:48 POC Hgb (12.0-16.0) g/dl POC Hct (37-47) % MCHC 31.5 L (32.0-36.0) g/dL RDW Std Deviation 54.6 H (36.4-46.3) fL RDW Coeff of Sachin 17.4 H (11.5-14.5) % MPV 9.2 L (9.4-12.4) fL PT (9.0-12.0) Seconds INR (0.9-1.1) POC pH (7.35-7.45) POC pO2 (80-95) mmHg POC Total CO2 (24-31) mmol/L ABG pH (7.35-7.45) ABG pCO2 (35-46) mmHg ABG pO2 (80-95) mmHg ABG HCO3 (19-24) mmol/L ABG O2 Saturation (90-95) % ABG Base Excess (-9-1.8) mEq/L Sodium (136-145) mmol/L Potassium (3.5-5.1) mmol/L Carbon Dioxide (21-32) mmol/L Anion Gap (3-11) BUN (6-23) mg/dl Creatinine (0.6-1.2) mg/dl BUN/Creatinine Ratio (10-20) Lactate (0.4-2.0) mmol/L AST (13-39) U/L ALT (7-52) U/L Alkaline Phosphatase (34-104) U/L Troponin I High Sens 368.1 H* (0-14) pg/ml TSH 12.710 H (0.300-4.500) uIu/ml 01/18/23 01/18/23 01/18/23 Range/Units 17:18 18:16 18:16 POC Hgb (12.0-16.0) g/dl POC Hct (37-47) % MCHC (32.0-36.0) g/dL RDW Std Deviation (36.4-46.3) fL RDW Coeff of Sachin (11.5-14.5) % MPV (9.4-12.4) fL PT 18.3 H (9.0-12.0) Seconds INR 1.7 H (0.9-1.1) POC pH (7.35-7.45) POC pO2 (80-95) mmHg POC Total CO2 (24-31) mmol/L ABG pH (7.35-7.45) ABG pCO2 (35-46) mmHg ABG pO2 (80-95) mmHg ABG HCO3 (19-24) mmol/L ABG O2 Saturation (90-95) % ABG Base Excess (-9-1.8) mEq/L Sodium 131 L (136-145) mmol/L Potassium 5.2 H (3.5-5.1) mmol/L Carbon Dioxide 8 L* (21-32) mmol/L Anion Gap 16 H (3-11) BUN 42 H (6-23) mg/dl Creatinine 1.93 H (0.6-1.2) mg/dl BUN/Creatinine Ratio 21.8 H (10-20) Lactate 6.8 H* (0.4-2.0) mmol/L AST 166 H (13-39) U/L ALT 168 H (7-52) U/L Alkaline Phosphatase 144 H (34-104) U/L Troponin I High Sens (0-14) pg/ml TSH (0.300-4.500) uIu/ml 01/18/23 01/18/23 01/18/23 Range/Units 19:52 19:52 21:00 POC Hgb 9.5 L (12.0-16.0) g/dl POC Hct 28 L (37-47) % MCHC (32.0-36.0) g/dL RDW Std Deviation (36.4-46.3) fL RDW Coeff of Sachin (11.5-14.5) % MPV (9.4-12.4) fL PT (9.0-12.0) Seconds INR (0.9-1.1) POC pH 7.32 L (7.35-7.45) POC pO2 69 L (80-95) mmHg POC Total CO2 21 L (24-31) mmol/L ABG pH 7.22 L (7.35-7.45) ABG pCO2 20 L (35-46) mmHg ABG pO2 106 H (80-95) mmHg ABG HCO3 8 L (19-24) mmol/L ABG O2 Saturation 97.9 H (90-95) % ABG Base Excess -17.4 L (-9-1.8) mEq/L Sodium (136-145) mmol/L Potassium (3.5-5.1) mmol/L Carbon Dioxide (21-32) mmol/L Anion Gap (3-11) BUN (6-23) mg/dl Creatinine (0.6-1.2) mg/dl BUN/Creatinine Ratio (10-20) Lactate 8.0 H* (0.4-2.0) mmol/L AST (13-39) U/L ALT (7-52) U/L Alkaline Phosphatase (34-104) U/L Troponin I High Sens (0-14) pg/ml TSH (0.300-4.500) uIu/ml ECG Additional Comments: Normal sinus rhythm Possible Left atrial enlargement Lateral infarct (cited on or before 06-MAR-2022) Abnormal ECG When compared with ECG of 18-JAN-2023 16:33, (unconfirmed) No significant change was found Coding Level of Care Code 56000 CRITICAL CARE -74M Diagnoses CARE HOME (acute liver failure) K72.00 Respiratory failure J96.90 ICD (implantable cardioverter-defibrillator), single, in situ Z95.810 Chronic kidney disease, stage III (moderate) N18.30 Hyperlipidemia E78.5 Chronic systolic CHF (congestive heart failure) I50.22 Ischemic cardiomyopathy I25.5 CAD (coronary artery disease) I25.10 Associated angina: without angina Coronary Disease-Associated Artery/Lesion type: [place] artery [place] vs. transplanted heart: [place] heart Shock R57.9 (8) CAD (coronary artery disease) Associated angina: without angina Coronary Disease-Associated Artery/Lesion type: [place] artery [place] vs. transplanted heart: [place] heart Qualified Code(s): I25.10 - Atherosclerotic heart disease of [place] coronary artery without angina pectoris
--- NOTE | 2023-01-18 21:31 | Procedure Note ---
Procedure Note Date of Service January 18, 2023 Note Procedure: RIGHT FEMORAL Central Line Placement Proceduralist: Harris ANDREA ([facility]) Attending: Dr. Jones Indication: Central Drug Administration, Poor Venous Access, Multiple Lab Draws Necessary, etc. Anesthesia: Sedated with propofol and Fentanyl x Verbal Consent was obtained from daughters at bedside as delegated to me by Dr. Jones as this was emergent need. Indication, risks, and benefits were explained at length. A time-out was completed verifying correct patient, procedure, site, positioning, and implants(s) or special equipment if applicable. Patients RIGHT GROIN was cleansed and draped in the typical sterile fashion using Chloraprep and maximal sterile barriers. The Femoral Vein and Femoral Artery were identified using ultrasound. The Femoral vein was cannulated under direct ultrasound guidance using an introducer needle on a syringe. Good venous blood return was maintained prior to removal of syringe from introducer needle. Using Seldinger Technique, a guide wire was advanced through the introducer needle without resistance. The introducer needle was removed and ultrasound images were obtained of the guide wire within the FEMORAL Vein. A small incision was made in penetrating fashion at the guide wire insertion site utilizing an 11 blade scalpel. The dilator was advanced to the vessel without resistance. The dilator was exchanged for the triple lumen catheter which was advanced into the vessel without resistance. The guide wire was removed intact from the catheter without issue. Claves were placed on each catheter tip with confirmation of good blood flow from each lumen. Each port was easily flushed with sterile saline. The catheter was placed at 20 cm and sutured in place. BioPatch was applied to the catheter and a sterile Tegaderm dressing was applied over the catheter with careful attention to sterility. Patient tolerated procedure well. No immediate complications were met. Procedural Ultrasound Guidance: Procedure Date: Indication: Direct Visualization for central venous access Proceduralist: Harris ANDREA ([facility]) Attending: Dr. Jones Artery AND Vein visualized: YES Compressible Vein: YES Guidewire or Short Catheter seen in vein prior to dilation: YES Coding CPT Codes Tubes, Drains, and Vasc Access - Tubes, Drains, and Vasc Access: [id number] Insertion Of Non-tunneled Catheter Age 7 Yrs> ([id number]) Tubes, Drains, and Vasc Access - Tubes, Drains, and Vasc Access: [id number] Ultrasound Guidance For Vascular ([id number]) [facility] [place] Procedure Codes (Charges) Tubes, Drains, and Vasc Access Procedure 1: Tubes, Drains, and Vasc Access: [id number] Insertion Of Non-tunneled Catheter Age 7 Yrs> Procedure 2: Tubes, Drains, and Vasc Access: [id number] Ultrasound Guidance For Vascular
--- NOTE | 2023-01-18 21:31 | Procedure Note ---
Procedure Note Date of Service January 18, 2023 Note ARTERIAL LINE PROCEDURE NOTE: Procedure: Arterial Line Placement Proceduralist: Harris ANDREA ([facility]) Attending: Dr. Jones Indication: Monitoring on Pressors Anesthesia: [x]None [x ] Verbal Consent was obtained as delegated to me by Dr. Jones as procedure was emergent A time-out was completed verifying correct patient, procedure, site, positioning, and implant(s) or special equipment if applicable. Allens test was performed to ensure adequate perfusion. Patients LEFT wrist was prepped and draped in the usual sterile fashion. A 20g Arrow arterial line was introduced into the LEFT RADIAL artery under direct palpation. Wire was advanced with resistance- cathteter threaded and then withdrawn until good spurting blood flow was noted, the guidewire and needle was then re-inserted into catheteter without resistance and catheter advanced, appropriate blood flow was noted. Good waveform was observed. The patient tolerated the procedure well. Line was secured in place with suture and covered in tegaderm. Maximal Sterile barriers were in place Blood Loss: Minimal Complications: None Coding CPT Codes Tubes, Drains, and Vasc Access - Tubes, Drains, and Vasc Access: [id number] Arterial Cath/Cannulation Sampling/Monitoring/Transfusion ([id number]) [facility] [place] Procedure Codes (Charges) Tubes, Drains, and Vasc Access Procedure 1: Tubes, Drains, and Vasc Access: [id number] Arterial Cath/Cannulation Sampling/Monitoring/Transfusion
[2023-01-18] MEDS ORDERED: STAT IV Infusion **Titration per Protocol STA (21:39)
[2023-01-18] MEDS ORDERED: fentaNYL BOLUS from BAG IV PRN (21:39)
[2023-01-18] MEDS ORDERED: PHYTONADIONE 10 MG in DEXTROSE 5% 50 ML IV ONE (21:45)
[2023-01-18] MEDS ORDERED: fentaNYL citrate 2,500 MCG/250 ML BAG IV SCH (21:45)
--- NOTE | 2023-01-18 22:07 | Billing Data ---
Date of Service January 18, 2023 Coding Level of Care Code 26487 INT INP/OBS CARE
[2023-01-18] MEDS: ICU Protocol for HYPERglycemia SCH (22:34)
[2023-01-18] MEDS ORDERED: PROPOFOL BOLUS FROM BAG IV PRN (22:36)
[2023-01-18 23:02] LABS: BUN Creatinine Ratio 24.7 (10-20); Calcium 8.9 mg/dl (8.6-10.3); Creatinine Clr Calc Pharmacy 19.7 ml/min; Est GFR (African American) 32.4 ml/min; Potassium 3.6 mmol/L (3.5-5.1)
[2023-01-18 23:26] LABS: Appearance Urine Clear (Clear); Bacteria Urine Automated Negative (Negative); Bilirubin Urine Negative (Negative); Blood Urine 1+ (Negative); Color Urine Yellow; Glucose Urine UA Negative (Negative); Ketones Urine Negative (Negative); Leukocyte Esterase Urine Negative (Negative); Nitrite Urine Negative (Negative); Protein Urine 1+ (Negative); Specific Gravity Urine 1.018 (1.000-1.030); Urobilinogen Urine Negative (Negative); pH Urine 5.5 (4.5-7.5)
[2023-01-18 23:37] LABS: iSTAT Art Bld Gas pCO2 Correct 28 mmHg (35-46); iSTAT Art Bld Gas pH Corrected 7.492 (7.35-7.45); iSTAT Arterial Blood Gas HCO3 22 meg/L (19-24); iSTAT Arterial Blood Gas pCO2 28 mmHg (35-46); iSTAT Arterial Blood Gas pH 7.49 (7.35-7.45); iSTAT Arterial Blood Gas pO2 141 mmHg (80-95); iSTAT Arterial Blood Gas pO2 C 139; iSTAT Carbon Dioxide 22 mmol/L (24-31); iSTAT FiO2 40 %; iSTAT Hematocrit 25 % (37-47); iSTAT Hemoglobin 8.5 g/dl (12.0-16.0); iSTAT Potassium 3.3 mmol/L (3.3-5.0); iSTAT Site Art Line; iSTAT Sodium 140 mmol/L (135-144)
[2023-01-18 23:38] LABS: Troponin I High Sensitivity 372.6 pg/ml (0-14)
--- NOTE | 2023-01-19 00:59 | Ultrasound Report ---
Exam(s): US OTHER duplex portal hepatic veins EXAM: US Duplex Arterial/Venous of the Abdomen, Complete CLINICAL HISTORY: Reason for exam: acute liver failure. TECHNIQUE: Real-time duplex ultrasound scan of the abdomen integrating B-mode two- dimensional vascular structure, Doppler spectral analysis and color flow Doppler imaging. COMPARISON: No relevant prior studies available. FINDINGS: Portal veins: There is pulsatile flow within the main portal vein which suggests underlying congestive hepatopathy. Hepatic artery: Unremarkable. Normal flow on color and spectral Doppler imaging. Hepatic veins: Unremarkable. Normal flow on color and spectral Doppler imaging. Splenic vein: Unremarkable. Normal flow on color and spectral Doppler imaging. IMPRESSION: Findings suggesting congestive hepatopathy. Electronically signed by: Ming Nuñez MD 01/19/23 00:57 AM
[2023-01-19 01:00] LABS: Fibrinogen 118 mg/dl (184-400)
[2023-01-19] MEDS ORDERED: FUROSEMIDE 40 MG/4 ML VIAL IV ONE (01:17)
[2023-01-19] MEDS ORDERED: VANCOMYCIN HCL 500 MG in NSS 100mL IV SCH (04:00)
--- NOTE | 2023-01-19 04:57 | Communication Note ---
Date of Service: January 19, 2023 Right hand dusky in color has not improved as other extremities. Ulnar Artery Palpable, Radial Artery not palpable. PIV site removed. Will obtain Arterial Duplex of right arm/hand to evaluate for blood flow/ischemia.
[2023-01-19 05:42] LABS: iSTAT Art Bld Gas pCO2 Correct 38 mmHg (35-46); iSTAT Art Bld Gas pH Corrected 7.492 (7.35-7.45); iSTAT Arterial Blood Gas HCO3 29 meg/L (19-24); iSTAT Arterial Blood Gas pCO2 37 mmHg (35-46); iSTAT Arterial Blood Gas pO2 228 mmHg (80-95); iSTAT Arterial Blood Gas pO2 C 232; iSTAT Carbon Dioxide 30 mmol/L (24-31); iSTAT FiO2 55 %; iSTAT Hematocrit 31 % (37-47); iSTAT Hemoglobin 10.5 g/dl (12.0-16.0); iSTAT Potassium 3.6 mmol/L (3.3-5.0); iSTAT Site Art Line; iSTAT Sodium 137 mmol/L (135-144)
[2023-01-19 05:51] LABS: Albumin Globulin Ratio 1.3 (0.9-2); Bilirubin Direct 0.4 mg/dl (0-0.2); Bilirubin,Total 1.4 mg/dl (0.2-1.0); Calcium 8.6 mg/dl (8.6-10.3); Creatinine Clr Calc Pharmacy 18.7 ml/min; Est GFR (African American) 30.5 ml/min; Est GFR (Non-African American) 26.3 ml/min; Globulin 2.3 gm/dl (2.5-4.0); Magnesium 1.6 mg/dl (1.7-2.4); Phosphorus 3.9 mg/dl (2.5-4.9); Potassium 3.6 mmol/L (3.5-5.1); Total Protein 5.3 gm/dl (6.0-8.3)
[2023-01-19 05:56] LABS: Troponin I High Sensitivity 587.2 pg/ml (0-14)
[2023-01-19 05:58] LABS: Hematocrit (blood only) 29.8 % (37.0-47.0); Hemoglobin 10.1 g/dl (12.0-16.0); INR 1.6 (0.9-1.1); Mean Corpuscular Hemoglobin 27.8 pg (25.0-34.0); Mean Corpuscular Hgb Conc 33.9 g/dL (32.0-36.0); Mean Corpuscular Volume 82.1 fL (80.0-100.0); Mean Platelet Volume 8.7 fL (9.4-12.4); Nucleated RBC # (auto) 0.07 K/uL (0-0.12); Nucleated RBC % (auto) 0.7 %; Platelet Count 102 K/uL (130-400); Prothrombin Time 17.2 Seconds (9.0-12.0); RDW Coefficient of Variation 16.8 % (11.5-14.5); RDW Standard Deviation 49.1 fL (36.4-46.3); Red Blood Count 3.63 M/uL (4.20-5.40); White Blood Count 10.08 K/ul (4.8-10.8)
[2023-01-19 05:59] LABS: Basophils # (auto) 0.04 K/uL (0-0.2); Basophils % (auto) 0.4 %; Eosinophils # (auto) 0.17 K/uL (0-0.50); Eosinophils % (auto) 1.7 %; Immature Granulocytes # (auto) 0.15 K/uL (0.01-0.20); Immature Granulocytes % (auto) 1.5 %; Lymphocytes # (auto) 1.95 K/uL (1.2-3.4); Lymphocytes % (auto) 19.3 %; Monocytes # (auto) 0.59 K/uL (0.11-0.59); Monocytes % (auto) 5.9 %; Neutrophils # (auto) 7.18 K/uL (1.40-6.50); Neutrophils % (auto) 71.2 %; Platelet Estimate Decreased (Normal); Polychromasia 1+
--- NOTE | 2023-01-19 06:59 | XRay Report ---
XR chest 1V portable HISTORY: 82 years-old Female eval ETT, OGT, lung anna acute respiratory failure COMPARISON: 01/18/2022 TECHNIQUE: AP view of the chest FINDINGS: Endotracheal tube overlies the midline, 1.5 cm superior to the carey. Distal tip of enteric tube coi ls of the left lower chest. Left subclavian pacer. Atherosclerosis of the aorta. Only vascular conges tion with interstitial coarsening. Small pleural effusions with mild bibasilar consolidation. Hiatal hernia. Degenerative changes of the shoulders and spine. An additional tube projects over the lateral right lower chest which may be external to the patient. IMPRESSION: 1. Endotracheal tube overlies the midline, 1.5 cm superior to the carey. 2. Enteric tube distal tip coiled over the left lower chest, likely within the partially intrathoraci c stomach. 3. Cardiomegaly with pulmonary edema. 4. Layering pleural effusions with bibasilar consolidation. ACT 112: Negative or not required by law. The above report was generated using voice recognition software. It may contain grammatical, syntax o r spelling errors. Electronically signed by: Ted Wesley M.D. 01/19/2023 6:57 AM
--- NOTE | 2023-01-19 07:52 | XRay Report ---
XR chest 1V portable CLINICAL HISTORY: tube placement TECHNIQUE: Single frontal radiograph of the chest was obtained. Comparison: Comparison is made to chest radiograph 01/18/2023 FINDINGS: Endotracheal tube terminates approximately 5 mm from the carey. Cardiomegaly is noted. The aortic ar ch is calcified. Left lower lung airspace opacity is seen. Small right pleural effusion is again seen , slightly decreased from prior. IMPRESSION: 1. The endotracheal tube is near the carey and can be withdrawn approximately 2.5 cm for improved p ositioning. 2. Interval development of a left retrocardiac opacity which may represent atelectasis versus aspira tion, less likely pneumonia. ACT 112: Negative or not required by law. Electronically signed by: Ray Farooq M.D. 01/19/2023 7:49 AM
[2023-01-19] MEDS ORDERED: HYDROCORTISONE SOD 100 MG in SYRINGE 0 ML IV ONE (08:00)
[2023-01-19] MEDS: MAGNESIUM SULFATE / D5W 1 GM/100 ML BAG IV SCH ×3 (08:24→12:16)
[2023-01-19] MEDS: ICU Protocol for HYPERglycemia SCH ×4 (08:26→21:46)
--- NOTE | 2023-01-19 08:33 | Critical Care Progress Note ---
Date of Service January 19, 2023 Assessment & Plan (1) CHALO (acute liver failure): (2) Respiratory failure: (3) ICD (implantable cardioverter-defibrillator), single, in situ: (4) Chronic kidney disease, stage III (moderate): (5) Hyperlipidemia: (6) Chronic systolic CHF (congestive heart failure): (7) Ischemic cardiomyopathy: (8) CAD (coronary artery disease): (9) Shock: Plan Reason Critically Ill: Patient presents with acute severe metabolic acidosis in the setting of elevated liver enzymes, encephalopathy, and MURRAY. She was intubated in the EMD to allow for resuscitation and correction of her acid base balance with her known history of sever ICM with EF 25-30%. If not reversible or improving and if unable to wean from ventilator transition to palliation. Neuro - Metabolic Encephalopathy, Sedation for mechanical Ventilation -Repeat ammonia pending: Initial ammonia 50 - Sedation for mechanical ventilation-bolus fentanyl and propofol -Consider transition to Versed Cardiac - HFrEF, ICM, Elevated HScTNI, Shock, MILD MR - ECG is without STEMI - She has not needed vasopressor support and has remained hemodynamically stable - Volume status appears to be hypovolemic on arrival as no evidence of peripheral congestion or abdominal edema/ascites as well as no worsening in acute pulmonary edema - Obtain formal echo with bubble study as there is concern for possible embolic phenomenon (hand) however I consider this to be of a lower likelihood - HScTNI elevated likely to demand- trend Respiratory - Acute respiratory failure requiring intubation - In the setting of hyperventilation for compensation of metabolic acidosis Small right pleural effusion: Suspect reactionary to hepatopathy - respiratory biofire is negative GI -acute liver failure, -Worsening transaminitis - Patient arrives with no history of cirrhosis- she is with elevated INR to 1.7 and acute onset of acute encephalopathy Grade II that progressed to Grade III and lactic acidosis -Acute hepatitis panel - new medications at previous discharge- amoxicillin- usually not offender in this setting but possible- hold - Tylenol is negative - Ammonia is 50 -Repeat coags pending - She is not associated with overt hypotension but with organ dysfunction more associated with hepatic congestion from heart failure -Portal venous duplex reviewed -Broad-spectrum antibiotics over concern for possible ascending cholangitis -Gastroenterology consulted -Mucomyst protocol ordered RENAL/LYTES - MURRAY on CKD: Stage IIIb, Metabolic Acidosis, - 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 - Lactic acid acidosis: Improving - Bicarbonate infusion discontinued - Improvement in urine output - Hyperkalemia: Resolved -Creatinine downtrending - No acute needs - Velázquez placed for accurate I/O ENDO - Hypothyroidism - On Synthroid at home -T4 within normal limits Rheumatoid arthritis -On daily prednisone 7.5 mg and hydroxychloroquine -Stress dose steroids 50 mg hydrocortisone every 8x2 doses -Continue 7.5 mg prednisone daily HEME - HX of RA on immunosuppressant agents: Hydroxychloroquine - Hold immunosuppressant agents Supratherapeutic INR -DIC versus acute liver failure: Peripheral smear ID - Normal WBC and normal PCT - Received Cefepime and Vancomycin in EMD- currently without source - Urine clean -Zosyn and vancomycin for possible ascending cholangitis -Repeat procalcitonin pending Musculoskeletal: Right radial artery thrombus, [id number] -Orthopedic surgery consult -Discussed extensively with family with regards to further evaluation, need for surgery, anticoagulation, possible transfer to tertiary care center -Right hand clearly ischemic if hand is less than functional this would be profoundly debilitating in a 82-year-old [id number] person LINES/IV ACCESS - CVL, Arterial line, ETT, Velázquez catheter, OGT -Possible cuff leak from endotracheal tube. Maintaining oxygen saturations and volumes okay will readdress in the near future as we obtain additional labs and property consultant information and gain additional direction of treatment goals from family DVT PROPHYLAXIS - SCDS DISPO - ICU I have personally spent 95 minutes of critical care time in the direct management of this patient. This is a life/limb threatening event. This includes time spent evaluating patient, direct bedside care, chart review, placing orders, interpretation of diagnostic studies, discussion with consultants, patient, and family members, as well as other required patient management activities. This time is exclusive of all separately billable procedures, and separate from and in addition to any other critical care service time. Admission and Anticipated Discharge Date Admission Date: January 18, 2023 Subjective 82-year-old female no significant change in condition since being seen in ED per family. Continues making urine. Right hand appears to be dusky and ischemic. Had extensive discussion with family regarding differential diagnosis, different treatment modalities including possible transfer to [facility] for further evaluation and possible treatment. I also discussed the case with gastroenterology as well as orthopedics. Review of Systems Review of Systems: Unobtainable due to endotracheal tube Physical Exam Physical Exam: General: Sedated. Glascow Coma Scale: Eyes: 1, Verbal 1t, Motor 4, Total 6T Skin: Acrocyanosis of distal extremities, rather profound cyanosis of right hand with poor capillary refill Head: Atraumatic Ears, nose, mouth and throat: airway obscured by endotracheal tube Cardiovascular: Distal acrocyanosis, central perfusion appears to be normal, capillary refill of right hand greater than 3 seconds. No palpable radial pulse, palpable Respiratory: Ventilator settings reviewed Gastrointestinal: Non distended Musculoskeletal: As described above Results & Data Results & Data Vital Signs (Past 12 Hours) Vital Signs Temp Pulse Pulse Resp BP BP Pulse Ox 01/19/23 07:50 80 28 H 97 01/19/23 06:00 37.8 C H 83 20 98 01/19/23 05:45 18 01/19/23 05:00 37.6 C H 81 20 100 01/19/23 04:00 37.3 C 80 22 86 L 01/19/23 03:00 37.4 C 73 20 98 01/19/23 02:00 37.3 C 78 20 100 01/19/23 04:00 01/19/23 04:00 80 140/88 01/19/23 03:40 86 22 99 01/19/23 01:00 37.1 C 75 22 100 01/19/23 01:00 132/78 01/19/23 00:00 36.9 C 75 22 100 01/19/23 00:00 134/73 01/19/23 00:00 01/19/23 00:00 75 131/70 01/19/23 00:00 75 01/18/23 23:50 25 H 01/18/23 23:33 79 137/75 01/18/23 23:00 36.7 C 80 26 H 100 01/18/23 23:00 146/93 H 01/18/23 22:06 36.6 C 82 26 H 01/18/23 22:06 152/102 H 01/18/23 22:03 36.6 C 83 26 H 01/18/23 23:03 01/18/23 22:53 01/18/23 22:07 01/18/23 22:01 82 26 H 98 01/18/23 21:56 36.6 C 84 26 H 136/82 96 01/18/23 21:00 30 H 01/18/23 21:25 01/18/23 21:20 68 26 H 100 01/18/23 21:20 119/71 01/18/23 21:10 85 26 H 98 01/18/23 21:10 103/64 01/18/23 21:00 88 26 H 98 01/18/23 20:50 92 H 26 H 97 01/18/23 20:45 62 21 95 01/18/23 20:45 124/91 01/18/23 20:43 103/71 01/18/23 20:43 81 26 H 100 01/18/23 20:41 109/67 01/18/23 20:41 89 26 H 100 01/18/23 20:40 84 27 H 100 01/18/23 20:38 144/92 H 01/18/23 20:38 84 29 H 100 01/18/23 20:36 104 H 20 98 01/18/23 20:55 26 H 01/18/23 20:37 100 H 01/18/23 20:39 92 H 26 H 144/92 H 100 Pulse Ox O2 Del Method O2 Del Method FiO2 01/19/23 07:50 30 01/19/23 06:00 01/19/23 05:45 30 01/19/23 05:00 01/19/23 04:00 01/19/23 03:00 01/19/23 02:00 01/19/23 04:00 55 01/19/23 04:00 01/19/23 03:40 45 01/19/23 01:00 01/19/23 01:00 01/19/23 00:00 01/19/23 00:00 01/19/23 00:00 22 01/19/23 00:00 01/19/23 00:00 01/18/23 23:50 30 01/18/23 23:33 01/18/23 23:00 01/18/23 23:00 01/18/23 22:06 01/18/23 22:06 01/18/23 22:03 01/18/23 23:03 Mechanical Vent 40 01/18/23 22:53 40 01/18/23 22:07 100 Mechanical Vent 01/18/23 22:01 40 01/18/23 21:56 Mechanical Vent 40 01/18/23 21:00 40 01/18/23 21:25 Mechanical Vent 01/18/23 21:20 40 01/18/23 21:20 01/18/23 21:10 40 01/18/23 21:10 01/18/23 21:00 40 01/18/23 20:50 40 01/18/23 20:45 40 01/18/23 20:45 01/18/23 20:43 01/18/23 20:43 40 01/18/23 20:41 01/18/23 20:41 40 01/18/23 20:40 40 01/18/23 20:38 01/18/23 20:38 40 01/18/23 20:36 01/18/23 20:55 40 01/18/23 20:37 01/18/23 20:39 Mechanical Vent 40 Critical Care Results & Data Vital Signs (Past 12 Hours) Vital Signs Temp Pulse Resp BP Pulse Ox O2 Del Method FiO2 01/19/23 10:36 84 26 H 98 25 01/19/23 08:00 30 01/19/23 08:00 80 115/58 L 01/19/23 08:00 80 01/19/23 07:50 80 28 H 97 30 01/19/23 06:00 37.8 C H 83 20 98 01/19/23 05:45 18 30 01/19/23 05:00 37.6 C H 81 20 100 01/19/23 04:00 37.3 C 80 22 86 L 01/19/23 03:00 37.4 C 73 20 98 01/19/23 02:00 37.3 C 78 20 100 01/19/23 04:00 55 01/19/23 04:00 80 140/88 01/19/23 03:40 86 22 99 45 01/19/23 01:00 37.1 C 75 22 100 01/19/23 01:00 132/78 01/19/23 00:00 36.9 C 75 22 100 01/19/23 00:00 134/73 01/19/23 00:00 22 01/19/23 00:00 75 131/70 01/19/23 00:00 75 01/18/23 23:50 25 H 30 01/18/23 23:33 79 137/75 01/18/23 23:00 36.7 C 80 26 H 100 01/18/23 23:00 146/93 H 01/18/23 23:03 Mechanical Vent 40 01/18/23 22:53 40 Lab & Micro Results (Past 24 Hours) RBC 3.67 M/uL (4.20-5.40) L 01/19/23 WBC 10.18 K/ul (4.8-10.8) 01/19/23 Hgb 10.3 g/dl (12.0-16.0) L 01/19/23 Hct 30.5 % (37.0-47.0) L 01/19/23 MCV 83.1 fL (80.0-100.0) 01/19/23 MCH 28.1 pg (25.0-34.0) 01/19/23 MCHC 33.8 g/dL (32.0-36.0) 01/19/23 RDW Standard Deviation 50.8 fL (36.4-46.3) H 01/19/23 RDW Coefficient of Variation 17.0 % (11.5-14.5) H 01/19/23 Plt Count 105 K/uL (130-400) L 01/19/23 MPV 10.8 fL (9.4-12.4) 01/19/23 Nucleated Red Blood Cells % (auto) 1.0 % 01/19 Nucleated RBC Absolute Count (auto) 0.10 K/uL (0-0.12) 01/06 11/28 Neutrophils (%) (Auto) 79.8 % 01/19/23 Lymphocytes (%) (Auto) 10.8 % 01/19/23 Monocytes # (Auto) 0.67 K/uL (0.11-0.59) H 01/19/23 Eosinophils # (Auto) 0.15 K/uL (0-0.50) 01/19/23 Immature Granulocyte % (Auto) 1.0 % 01/19/23 Neutrophils # (Auto) 8.13 K/uL (1.40-6.50) H 01/19/23 Lymphocytes # (Auto) 1.10 K/uL (1.2-3.4) L 01/19/23 Monocytes # (Auto) 0.67 K/uL (0.11-0.59) H 01/19/23 Eosinophils # (Auto) 0.15 K/uL (0-0.50) 01/19/23 Basophils # (Auto) 0.03 K/uL (0-0.2) 01/19/23 Immature Granulocyte # (Auto) 0.10 K/uL (0.01-0.20) 3 Polychromasia 1+ 01/19/23 Na 138 mmol/L (136-145) 01/19/23 K 3.6 mmol/L (3.5-5.1) 01/19/23 Cl 100 mmol/L (98-107) 01/19/23 CO2 27 mmol/L (21-32) 01/19/23 Anion Gap 11 (3-11) 01/19/23 BUN 45 mg/dl (6-23) H 01/19/23 Creatinine 2.03 mg/dl (0.6-1.2) H 01/19/23 Estimated GFR ( Amer) 26.2 ml/min 01/19/23 Estimated GFR (Non-Af Amer) 22.6 ml/min 01/19/23 BUN/Creatinine Ratio 22.2 (10-20) H 01/19/23 Glu 107 mg/dl (70-99(Fasting)) H 01/19/23 Ca 8.7 mg/dl (8.6-10.3) 01/19/23 Phosphorus Level 3.9 mg/dl (2.5-4.9) 01/19/23 Total Bilirubin 1.5 mg/dl (0.2-1.0) H 01/19/23 Direct Bilirubin 0.4 mg/dl (0-0.2) H 01/19/23 AST 400 U/L (13-39) H 01/19/23 ALT 272 U/L (7-52) H 01/19/23 Alkaline Phosphatase 127 U/L (34-104) H 01/19/23 TP 5.5 gm/dl (6.0-8.3) L 01/19/23 Albumin 3.1 gm/dl (3.4-5.0) L 01/19/23 Globulin 2.4 gm/dl (2.5-4.0) L 01/19/23 Albumin/Globulin Ratio 1.3 (0.9-2) 01/19/23 Mg 1.6 mg/dl (1.7-2.4) L 01/19/23 05:19 Calcium Level 8.7 mg/dl (8.6-10.3) 01/19/23 10:23 Prothromb Time International Ratio 1.6 (0.9-1.1) H 01/19/23 05 :19 Arterial Blood pH 7.22 (7.35-7.45) L 01/18/23 19:52 Arterial Blood Partial Pressure CO2 20 mmHg (35-46) L 01/18/23 19:52 Arterial Blood Partial Pressure O2 106 mmHg (80-95) H 01/18/23 19:52 Arterial Blood HCO3 8 mmol/L (19-24) L 01/18/23 19:52 Arterial Blood Base Excess -17.4 mEq/L (-9-1.8) L 01/18/23 19:5 2 Arterial Blood Oxygen Saturation 97.9 % (90-95) H 01/18/23 19:5 2 Blood Gas Oxygen Given 5L O2 01/18/23 19:52 Manpreet Test NA 01/19/23 05:26 Diagnostic Findings (Past 24 Hours) Chest X-Ray 01/18/23 16:40 XR chest 1V portable CLINICAL HISTORY: weakness TECHNIQUE: Single frontal radiograph of the chest was obtained. Comparison: Comparison is made to chest radiograph 01/15/2023 FINDINGS: Pacemaker defibrillator is seen. Cardiomegaly is noted. The aortic arch is calcified. Lungs are underinflated but clear. Small right pleural effusion. IMPRESSION: Small right pleural effusion without evidence of acute abnormality. ACT 112: Negative or not required by law. Electronically signed by: Ray Farooq M.D. 01/18/2023 5:[address] 01/18/23 16:42 CT head/brain wo con CLINICAL HISTORY: AMS Technique: Contiguous axial CT images of the head were acquired from the base of the skull to the vertex without intravenous contrast administration. Images were viewed in brain, subdural and bone windows. Automated dose lowering techniques and/or adjustment according to patient size were utilized for this exam. Comparison: Comparison is made to CT head 04/18/2022 Findings: Areas of decreased attenuation are present in the periventricular and subcortical white matter bilaterally consistent with small vessel ischemic disease. Generalized cerebral atrophy with commensurate enlargement of the ventricles, sulci, and cisterns is also present. There is no acute intracranial hemorrhage or evidence of acute territorial infarction. No shift of the midline structures, mass effect, or extra-axial abnormalities are shown. Ather osclerotic calcifications are present in the intracranial segments of the internal carotid arteries. Imaged portions of the paranasal sinuses and mastoid air cells are clear. There is evidence of bilateral cataract extraction and intraocular lens implantation. There are no acute fractures of the calvaria or scalp swelling. Impression: No acute intracranial hemorrhage, no evidence of acute territorial infarction or other acute intracranial disease process. ACT 112: Negative or not required by law. Electronically signed by: Ray Farooq M.D. 01/18/2023 5:18 PM Abdomen/Pelvis CT 01/18/23 18:56 Exam(s): CT ABDOMEN + PELVIS Without Contrast EXAM: CT Abdomen and Pelvis Without Intravenous Contrast CLINICAL HISTORY: Reason for exam: elevated lactic acid, recent SBO. TECHNIQUE: Axial computed tomography images of the abdomen and pelvis without intravenous contrast. CTDI is 17.63 mGy and DLP is 760.45 mGy-cm. Automated exposure control was utilized for the study. A dose lowering technique was utilized adhering to the principles of ALARA. COMPARISON: No relevant prior studies available. FINDINGS: Limitations: Limited without contrast. Pleural space: Trace left and small right pleural effusions. Heart: Cardiomegaly and pacemaker. Mediastinum: Large hiatal hernia. ABDOMEN: Liver: Unremarkable. Gallbladder and bile ducts: Suggestion mild nonspecific pericholecystic stranding. No radiodense gallstones. Pancreas: Unremarkable. Spleen: Unremarkable. Adrenals: Unremarkable. Kidneys and ureters: Severe atrophy of the left kidney. Stomach and bowel: Colonic diverticula without diverticulitis. Nonobstructive bowel gas pattern. PELVIS: Appendix: No findings to suggest acute appendicitis. Bladder: Unremarkable. Reproductive: Hysterectomy. Subperitoneal space: Presacral edema. ABDOMEN and PELVIS: Intraperitoneal space: Trace amounts of fluid in the peritoneal cavity. Edema in the mesentery/peritoneal cavity. No evidence of pneumatosis or extraluminal air. Bones/joints: Scoliosis. Soft tissues: Dependent edema in the subcutaneous tissues of the back. Vasculature: No acute process. IMPRESSION: 1. No evidence of pneumatosis or extraluminal air. 2. Suggestion mild nonspecific pericholecystic stranding. No radiodense gallstones. Electronically signed by: Allyson Mast M.D. 01/18/23 19:40 PM Chest X-Ray 01/18/23 20:37 XR chest 1V portable CLINICAL HISTORY: tube placement TECHNIQUE: Single frontal radiograph of the chest was obtained. Comparison: Comparison is made to chest radiograph 01/18/2023 FINDINGS: Endotracheal tube terminates approximately 5 mm from the carey. Cardiomegaly is noted. The aortic arch is calcified. Left lower lung airspace opacity is seen. Small right pleural effusion is again seen, slightly decreased from prior. IMPRESSION: 1. The endotracheal tube is near the carey and can be withdrawn approximately 2.5 cm for improved positioning. 2. Interval development of a left retrocardiac opacity which may represent atelectasis versus aspiration, less likely pneumonia. ACT 112: Negative or not required by law. Electronically signed by: Ray Farooq M.D. 01/19/2023 7:49 AM Portal Vein US 01/18/23 23:25 Exam(s): US OTHER duplex portal hepatic veins EXAM: US Duplex Arterial/Venous of the Abdomen, Complete CLINICAL HISTORY: Reason for exam: acute liver failure. TECHNIQUE: Real-time duplex ultrasound scan of the abdomen integrating B-mode two- dimensional vascular structure, Doppler spectral analysis and color flow Doppler imaging. COMPARISON: No relevant prior studies available. FINDINGS: Portal veins: There is pulsatile flow within the main portal vein which suggests underlying congestive hepatopathy. Hepatic artery: Unremarkable. Normal flow on color and spectral Doppler imaging. Hepatic veins: Unremarkable. Normal flow on color and spectral Doppler imaging. Splenic vein: Unremarkable. Normal flow on color and spectral Doppler imaging. IMPRESSION: Findings suggesting congestive hepatopathy. Electronically signed by: Ming Nuñez MD 01/19/23 00:57 AM Chest X-Ray 01/19/23 02:30 XR chest 1V portable HISTORY: 82 years-old Female eval ETT, OGT, lung anna acute respiratory failure COMPARISON: 01/18/2022 TECHNIQUE: AP view of the chest FINDINGS: Endotracheal tube overlies the midline, 1.5 cm superior to the carey. Distal tip of enteric tube coils of the left lower chest. Left subclavian pacer. Atherosclerosis of the aorta. Only vascular congestion with interstitial coarsening. Small pleural effusions with mild bibasilar consolidation. Hiatal hernia. Degenerative changes of the shoulders and spine. An additional tube projects over the lateral right lower chest which may be external to the patient. IMPRESSION: 1. Endotracheal tube overlies the midline, 1.5 cm superior to the carey. 2. Enteric tube distal tip coiled over the left lower chest, likely within the partially intrathoracic stomach. 3. Cardiomegaly with pulmonary edema. 4. Layering pleural effusions with bibasilar consolidation. ACT 112: Negative or not required by law. The above report was generated using voice recognition software. It may contain grammatical, syntax or spelling errors. Electronically signed by: Ted Wesley M.D. 01/19/2023 6:57 AM Duplex Scan Upper Extremity Artery 01/19/23 04:53 US arterial duplex UE RT HISTORY: 82 years-old Female evaluate right hand ischemia acute pain of the right upper extremity COMPARISON: None TECHNIQUE: Multiple real-time sonography images of the right upper cavity arterial structures were obtained assessing grayscale appearance, color and spectral flow FINDINGS: Subcutaneous edema. Occlusive thrombus within the distal radial artery with broken areas of trickle flow noted within the mid aspect of the radial artery. The upper aspect of the right artery is patent. There is a broken intermittent flow noted within the lumbar artery with elevated peak systolic velocities measuring up to 176 cm/s. Study is otherwise unremarkable. IMPRESSION: 1. Thrombus of the right radial artery. 2. Elevated peak systolic velocities within the ulnar artery compatible with areas of high-grade stenosis with possible areas of short segment occlusion. ACT 112: Negative or not required by law. The above report was generated using voice recognition software. It may contain grammatical, syntax or spelling errors. Electronically signed by: Ted Wesley M.D. 01/19/2023 9:10 AM I & O Totals 24 Hours 01/18/23 01/19/23 01/20/23 06:59 06:59 06:59 Intake Total 3775.682 / 3775.682 146.735 / 146.735 Output Total 515 / 515 Balance 3260.682 / 3260.682 146.735 / 146.735 Cumulative 01/18/23 16:21 thru 01/19/23 10:45 Intake Total 3922.417 Output Total 515 Balance 3407.417 RT Ventilator Mngmt (Last Documented) Ventilator Ordered Settings Ventilator Support Mode Assist Control 01/19/23 10:36 Respiratory Rate 26 01/19/23 10:36 Ventilator Tidal Volume 300 01/19/23 10:36 Setting Minute Ventilation 7.8 01/19/23 10:36 Positive End Expiratory 5 01/19/23 10:36 Pressure Fraction of Inspired Oxygen 25 01/19/23 10:36 Peak Inspiratory Flow 40 01/19/23 10:36 Machine Comment FiO2 decreased to 25% 01/19/23 10:36 Ventilator - PT Measurements Respiratory Rate 26 Exhaled Tidal Volume 259 Minute Ventilation 7.8 Peak Inspiratory Airway 14 Pressure Plateau Pressure 16.7 Respiratory Cycle Inspiratory: 1:2.8 Expiratory Ratio Inspiratory Phase Time 0.60 End-Tidal CO2 28 Static Lung Compliance 22.14 Dynamic Lung Compliance 28.78 Normal Static Lung Compliance 47.00 Patient Measurements Comment decreased fio2, peep, and respiratory rate per Star after reviewing ABG results Coding Level of Care Code 89448 CRITICAL CARE 1ST 30-74M Additional Critical Care Time Additional 30min Critical Care Time: Yes - Total Critical Care Time: 95 Diagnoses LONG TERM (acute liver failure) K72.00 Respiratory failure J96.90 ICD (implantable cardioverter-defibrillator), single, in situ Z95.810 Chronic kidney disease, stage III (moderate) N18.30 Hyperlipidemia E78.5 Chronic systolic CHF (congestive heart failure) I50.22 Ischemic cardiomyopathy I25.5 CAD (coronary artery disease) I25.10 Associated angina: without angina Coronary Disease-Associated Artery/Lesion type: [place] artery [place] vs. transplanted heart: [place] heart Shock R57.9 Additional Codes Critical Care Time - Additional 30min Critical Care Time: Yes - ([id number]) (8) CAD (coronary artery disease) Associated angina: without angina Coronary Disease-Associated Artery/Lesion type: [place] artery [place] vs. transplanted heart: [place] heart Qualified Code(s): I25.10 - Atherosclerotic heart disease of [place] coronary artery without angina pectoris
--- NOTE | 2023-01-19 09:11 | Ultrasound Report ---
US arterial duplex UE RT HISTORY: 82 years-old Female evaluate right hand ischemia acute pain of the right upper extremity COMPARISON: None TECHNIQUE: Multiple real-time sonography images of the right upper cavity arterial structures were ob tained assessing grayscale appearance, color and spectral flow FINDINGS: Subcutaneous edema. Occlusive thrombus within the distal radial artery with broken areas of trickle f low noted within the mid aspect of the radial artery. The upper aspect of the right artery is patent. There is a broken intermittent flow noted within the lumbar artery with elevated peak systolic veloc ities measuring up to 176 cm/s. Study is otherwise unremarkable. IMPRESSION: 1. Thrombus of the right radial artery. 2. Elevated peak systolic velocities within the ulnar artery compatible with areas of high-grade sten osis with possible areas of short segment occlusion. ACT 112: Negative or not required by law. The above report was generated using voice recognition software. It may contain grammatical, syntax o r spelling errors. Electronically signed by: Ted Wesley M.D. 01/19/2023 9:10 AM
[2023-01-19] MEDS ORDERED: PIPERACILLIN/TAZOBACTAM 4.5 GM (over 30 mins) IV ONE (09:45)
[2023-01-19] MEDS ORDERED: VANCOMYCIN CONSULT ACTIVE PRN (10:09)
[2023-01-19] MEDS ORDERED: VANCOMYCIN HCL 500 MG in NSS 100mL IV ONE (10:30)
[2023-01-19] MEDS ORDERED: ACETYLCYSTEINE 20% 200 MG/ML 30ML VIAL PO ONE (10:30)
[2023-01-19] MEDS: PANTOprazole 40 MG in SYRINGE 0 ML IV SCH (10:30)
[2023-01-19 10:40] LABS: Mixed Venous Blood Gas Base Excess 3.7 mEq/L (-7.7-1.9); Mixed Venous Blood Gas HCO3 28 mmol/L (19-24); Mixed Venous Blood Gas O2 Sat 67.5 % (68); Mixed Venous Blood Gas PCO2 39 mmHg (38-50); Mixed Venous Blood Gas PO2 37 mmHg (80-95); Mixed Venous Blood Gas pH 7.46 (7.35-7.45)
[2023-01-19] MEDS: propofoL 1,000 MG/100 ML VIAL IV SCH ×2 (10:45→23:59)
--- NOTE | 2023-01-19 10:48 | Pharmacy Report ---
Pharmacy PK ABX Note - Date of Service January 19, 2023 - Assessment and Plan Assessment 82 year old F receiving vancomycin and zosyn empirically for GI coverage. Blood cultures pending. MURRAY on CKD - SCr (1.93 -->1.79). Day #2 of antimicrobial therapy. Plan Vancomycin * Loading dose: 1250 mg IV x 1 last evening * Given acute on chronic kidney injury, plan to dose by levels until SCr at baseline. 500mg IV X 1 dose now * Random level with AM labs tomorrow to guide further dosing Zosyn * 4.5gm IV X 1 bolus, followed by 4.5gm IV q12h extended infusion for CrCL <20 Pharmacy will continue to follow and will adjust dose/frequency as necessary. Thank you. Pharmacy has transitioned to AUC monitoring for vancomycin. AUC/MAGGY is the preferred PK/PD target and is associated with decreased risk of nephrotoxicity compared to traditional trough targets. 4
[2023-01-19 10:57] LABS: Basophils # (auto) 0.03 K/uL (0-0.2); Basophils % (auto) 0.3 %; Eosinophils # (auto) 0.15 K/uL (0-0.50); Eosinophils % (auto) 1.5 %; Hematocrit (blood only) 30.5 % (37.0-47.0); Hemoglobin 10.3 g/dl (12.0-16.0); Lymphocytes % (auto) 10.8 %; Mean Corpuscular Hemoglobin 28.1 pg (25.0-34.0); Mean Corpuscular Hgb Conc 33.8 g/dL (32.0-36.0); Mean Corpuscular Volume 83.1 fL (80.0-100.0); Mean Platelet Volume 10.8 fL (9.4-12.4); Monocytes # (auto) 0.67 K/uL (0.11-0.59); Monocytes % (auto) 6.6 %; Neutrophils # (auto) 8.13 K/uL (1.40-6.50); Neutrophils % (auto) 79.8 %; Platelet Count 105 K/uL (130-400); RDW Standard Deviation 50.8 fL (36.4-46.3); Red Blood Count 3.67 M/uL (4.20-5.40); White Blood Count 10.18 K/ul (4.8-10.8)
[2023-01-19 11:11] LABS: Albumin Globulin Ratio 1.3 (0.9-2); Albumin Level 3.1 gm/dl (3.4-5.0); BUN Creatinine Ratio 22.2 (10-20); Bilirubin,Total 1.5 mg/dl (0.2-1.0); Calcium 8.7 mg/dl (8.6-10.3); Creatinine Clr Calc Pharmacy 16.5 ml/min; Est GFR (African American) 26.2 ml/min; Est GFR (Non-African American) 22.6 ml/min; Globulin 2.4 gm/dl (2.5-4.0); Potassium 3.6 mmol/L (3.5-5.1); Total Protein 5.5 gm/dl (6.0-8.3)
[2023-01-19 11:20] LABS: Fibrinogen 113 mg/dl (184-400); INR 1.5 (0.9-1.1); Partial Thromboplastin Ratio 1.2; Partial Thromboplastin Time 33.9 Seconds (21.0-31.0); Prothrombin Time 16.3 Seconds (9.0-12.0)
[2023-01-19] MEDS ORDERED: THIAMINE HCL 200 MG in SODIUM CHLORIDE 0.9% 50 ML IV ONE (11:30)
[2023-01-19] MEDS: predniSONE 2.5 MG TAB PO SCH (12:16)
[2023-01-19] MEDS: fentaNYL citrate PF 100 MCG/2 ML VIAL IV PRN ×3 (12:27→22:56)
--- NOTE | 2023-01-19 12:30 | Gastrointestinal Consultation ---
Date of Consultation January 19, 2023 Assessment & Plan (1) Shock: (2) Transaminitis: (3) Ischemic cardiomyopathy: 82 y.o. female admitted with AMS changes, currently with endotracheal intubation with elevated liver panel in the setting of elevated troponin and portal duplex with findings of congestive hepatopathy. Suspect shock liver from congestive/ischemic hepatitis. -Recommend cardiology consultation. -Trend liver and coag panel. Suspect will peak over the next few days and then trend downward. -Continue supportive care. Supervising Physician Co-Signing Physician Notes Agree with ZULLY Contreras as above Abd: Soft, NT, ND, no appreciable HSM Continue current therapy and supportive care Most likely ischemic colitis ECHO Pending, consider Cardiology consult History of Present Illness Reason for Consultation: ? ascending cholangitis Requesting Physician: Dr. Jones Attending Physician: Izaiah Paez History of Present Illness Patient is a 82 y.o. female evaluated on 01/14/23 during most recent hospitalization for abdominal pain, nausea, and large hiatus hernia. She was managed conservatively as she had just recovered from a PSBO. Upon discharge, she reportedly followed with her her director law enforcement and was recommended ER evaluation due to acute mental status changes. She deteriorated and subsequently intubated. She is not able to provide any history. She is being requested GI lawrence luation due to elevated liver enzymes as follows: TB 0.8, AST 166, ALT 168, and ALP 144. She is also noted to have significantly elevated high sensitivity troponin of >500. Portal duplex was ordered and demonstrated congestive hepatopathy. Allergies Allergy/AdvReac Type Severity Reaction Status Date / Time gabapentin AdvReac Intermediate SHAKING, Verified 01/18/23 15:41 JERKING MOVEMENTS ondansetron [From Zofran] AdvReac Intermediate Unknown Unverified 01/18/23 17:15 benztropine [From Cogentin] AdvReac Shakiness, Verified 01/18/23 15:41 jerking movements metoclopramide [From Reglan] AdvReac Shakiness, Verified 01/18/23 15:41 jerking movements Home Medications Medication Instructions Recorded Confirmed Type lorazepam 0.5 mg tablet 0.5 mg PO Q4H PRN anxiety #20 tabs 04/30/22 01/18/23 Rx prednisone 5 mg tablet 7.5 mg PO DAILY 05/06/22 01/18/23 History levothyroxine 100 mcg tablet 100 mcg PO DAILY #90 tabs 10/15/22 01/18/23 Rx acetaminophen 500 mg oral powder 1,000 mg PO Q6H PRN Pain 11/08/22 01/18/23 Hist ory packet (Tylenol Extra Strength) pantoprazole 40 mg tablet,delayed 40 mg PO BID #180 tabs 11/10/22 01/18/23 Rx release rotigotine 2 mg/24 hour 2 mg transdermal DAILY 11/10/22 01/18/23 History transdermal 24 hour patch (Neupro) furosemide 20 mg tablet (Lasix) 20 mg PO DAILY PRN weight gain #90 11/30/22 01/18/23 Rx tabs tramadol 50 mg tablet 50 mg PO TID PRN pain #90 tabs 12/20/22 01/18/23 Rx amoxicillin 875 mg-potassium 1 tab PO BID #20 tabs 01/16/23 01/18/23 Rx clavulanate 125 mg tablet hydroxychloroquine 200 mg tablet 200 mg PO DAILY #30 tabs 01/17/23 01/18/23 Rx (Plaquenil) Patient History Medical History Acid reflux Acute encephalopathy Acute hyponatremia Acute hyponatremia Acute hypoxemic respiratory failure Acute metabolic encephalopathy Acute LA Acute UTI CAD (coronary artery disease) LA in [place] in 02/2022. 1 stent placed (believe LCx, but not sure). 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 Dehydration, mild DVT prophylaxis DVT prophylaxis Dysuria Elevated troponin Hiatal hernia History of Hodgkin's lymphoma S/P RADIATION/CHEMO (2000) History of pelvic fracture Hyperlipidemia Hypertension Hypothyroidism Ischemic cardiomyopathy Mixed stress and urge urinary incontinence Nausea & vomiting On amiodarone therapy Restless leg syndrome Rheumatoid arthritis ON CHRONIC PREDNISONE 7.5MG DAILY Sciatica Scoliosis Stage 3b chronic kidney disease Ventricular tachycardia Surgical History H/O foot surgery 2ND RT TOE REMOVED History of bilateral cataract extraction RIGHT CATARACT EXTRACTION WITH IOL= 04/05/18= MAC SEDATION AT [facility] History of colonoscopy History of gynecologic surgery ANTERIOR AND POSTERIOR REPAIR - colporrhaphy (for pelvic relaxation) History of removal of cyst HEAD (BENIGN) History of tonsillectomy History of tooth extraction History of total knee replacement RT History of urologic surgery URETEROLYSIS- 04/[place] [facility] [place] coronary artery stent placement S/P vaginal hysterectomy Status post right knee replacement Family History Mother , age 80 Cardiac disorder Family history of lung cancer Brother Diabetes Family history of lung cancer Family history of diabetes mellitus Daughter Breast cancer Father , age 57 Cardiac disorder Grandmother Diabetes Aunt Ovarian cancer paternal aunt Grandmother (Paternal) Family history of diabetes mellitus Other Cancer Heart disease No family history of adverse response to anesthesia No family history of bleeding disorder Denies family history of Colon cancer Colorectal cancer Social History Smoking Status: Former smoker Tobacco Type: Cigarettes Cigarettes Per Day: QUIT + 30 YEARS AGO; Second Hand Exposure: No; Do You Dip or Chew Tobacco: No; Hx Alcohol Use: No Hx Substance Use: No Preferred Language: Nepali Communication Ability: Impaired Communication Ability Comment: Non-verbal, confused at this time. 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 [employer] Feels Safe at Home: Yes Childhood Exposure to Second-Hand Smoke: Yes (parent smoked) Diet: regular Dental Care, Regularly: Yes Sunscreen Use: Yes (occasionally) Assistive Devices: Walker Review of Systems Review of Systems: Unobtainable due to endotracheal tube Physical Exam Constitutional: no acute distress Respiratory: Auscultation: lungs clear to auscultation bilaterally Cardiovascular: Rate/Rhythm: regular rate and regular rhythm Heart Sounds: + murmur Gastrointestinal (Abdomen): Inspection/Auscultation: normal bowel sounds Results & Data Vital Signs (Past 12 Hours) Vital Signs Temp Pulse Resp BP Pulse Ox O2 Del Method FiO2 01/19/23 12:00 37.7 C H 86 21 97 01/19/23 11:00 37.8 C H 86 21 95 01/19/23 10:00 37.8 C H 84 25 H 99 01/19/23 09:00 37.8 C H 81 21 97 01/19/23 08:00 37.8 C H 78 21 98 01/19/23 07:00 37.8 C H 80 20 98 01/19/23 06:45 37.8 C H 81 20 98 01/19/23 12:00 84 01/19/23 12:00 25 01/19/23 12:00 84 129/62 01/19/23 10:54 Mechanical Vent 25 01/19/23 10:36 84 26 H 98 25 01/19/23 08:00 30 01/19/23 08:00 80 115/58 L 01/19/23 08:00 80 01/19/23 07:50 80 28 H 97 30 01/19/23 06:00 37.8 C H 83 20 98 01/19/23 05:45 18 30 01/19/23 05:00 37.6 C H 81 20 100 01/19/23 04:00 37.3 C 80 22 86 L 01/19/23 03:00 37.4 C 73 20 98 01/19/23 02:00 37.3 C 78 20 100 01/19/23 04:00 55 01/19/23 04:00 80 140/88 01/19/23 03:40 86 22 99 45 01/19/23 01:00 37.1 C 75 22 100 01/19/23 01:00 132/78 Diagnostic Findings Laboratory Results WBC 10.18 K/ul (4.8-10.8) 01/19/23 10: RBC 3.67 M/uL (4.20-5.40) L 01/19/23 10:23 Hgb 10.3 g/dl (12.0-16.0) L 01/19/23 10:23 POC Hgb 10.5 g/dl (12.0-16.0) L 01/19/23 05:26 Hct 30.5 % (37.0-47.0) L 01/19/23 10:23 POC Hct 31 % (37-47) L 01/19/23 05:26 MCV 83.1 fL (80.0-100.0) 01/19/23 10:23 MCH 28.1 pg (25.0-34.0) 01/19/23 10: MCHC 33.8 g/dL (32.0-36.0) 01/19/23 10: RDW Std Deviation 50.8 fL (36.4-46.3) H 01/19/23 10: RDW Coeff of Sachin 17.0 % (11.5-14.5) H 01/19/23 10: Plt Count 105 K/uL (130-400) L 01/19/23 10: MPV 10.8 fL (9.4-12.4) 01/19/23 10:23 Immature Gran % (Auto) 1.0 % 01/19/23 10: Neut % (Auto) 79.8 % 01/19/23 10:23 Lymph % (Auto) 10.8 % 01/19/23 10:23 Nicholas % (Auto) 6.6 % 01/19/23 10:23 Eos % (Auto) 1.5 % 01/19/23 10:23 Baso % (Auto) 0.3 % 01/19/23 10:23 Neut # (Auto) 8.13 K/uL (1.40-6.50) H 01/19/23 10:23 Lymph # (Auto) 1.10 K/uL (1.2-3.4) L 01/19/23 10:23 Nicholas # (Auto) 0.67 K/uL (0.11-0.59) H 01/19/23 10:23 Eos # (Auto) 0.15 K/uL (0-0.50) 01/19/23 10:23 Baso # (Auto) 0.03 K/uL (0-0.2) 01/19/23 10: Immature Gran # (Auto) 0.10 K/uL (0.01-0.20) 01/19/23 10: Absolute Nucleated RBC 0.10 K/uL (0-0.12) 01/19/23 10: Nucleated RBC % (auto) 1.0 % 01/19/23 10: Platelet Estimate Decreased (Normal) L 01/19/23 05:19 Polychromasia 1+ 01/19/23 05:19 Peripher Smr Path Cons Cancelled 01/19/23 10:23 PT 16.3 Seconds (9.0-12.0) H 01/19/23 10:23 INR 1.5 (0.9-1.1) H 01/19/23 10:23 APTT 33.9 Seconds (21.0-31.0) H 01/19/23 10:23 PTT Ratio 1.2 01/19/23 10:23 Fibrinogen 113 mg/dl (184-400) L 01/19/23 10:23 Sample Site Art Line 01/19/23 05:26 POC pH 7.50 (7.35-7.45) H 01/19/23 05:26 POC pCO2 37 mmHg (35-46) 01/19/23 05:26 POC pO2 228 mmHg (80-95) H 01/19/23 05:26 POC HCO3 29 cas/L (19-24) H 01/19/23 05:26 POC Total CO2 30 mmol/L (24-31) 01/19/23 05:26 POC Base Excess 6.0 cas/L (-9-1.8) H 01/19/23 05:26 ABG pH 7.22 (7.35-7.45) L 01/18/23 19:52 ABG pH (Temp Correct) 7.492 (7.35-7.45) H 01/19/23 05:26 ABG pCO2 20 mmHg (35-46) L 01/18/23 19:52 ABG pCO2 (Temp Corrct 38 mmHg (35-46) 01/19/23 05:26 ABG pO2 106 mmHg (80-95) H 01/18/23 19:52 POC ABG pO2 at Pt Temp 232 01/19/23 05:26 ABG HCO3 8 mmol/L (19-24) L 01/18/23 19:52 POC ABG O2 Sat 100.0 % (90-95) H 01/19/23 05:26 ABG O2 Saturation 97.9 % (90-95) H 01/18/23 19:52 ABG Base Excess -17.4 mEq/L (-9-1.8) L 01/18/23 19:52 Manpreet Test NA 01/19/23 05:26 VBG pH Cancelled 01/18/23 19:52 VBG pCO2 Cancelled 01/18/23 19:52 VBG pO2 Cancelled 01/18/23 19:52 VBG HCO3 Cancelled 01/18/23 19:52 VBG O2 Saturation Cancelled 01/18/23 19:52 VBG Base Excess Cancelled 01/18/23 19:52 Mixed VBG pH 7.46 (7.35-7.45) H 01/19/23 10:23 Mixed VBG pCO2 39 mmHg (38-50) 01/19/23 10:23 Mixed VBG pO2 37 mmHg (80-95) L 01/19/23 10:23 Mixed VBG HCO3 28 mmol/L (19-24) H 01/19/23 10:23 Mixed VBG Base Excess 3.7 mEq/L (-7.7-1.9) H 01/19/23 10:23 Mixed VBG O2 Saturation 67.5 % (68) 01/19/23 10:23 Barometric Pressure Cancelled 01/18/23 19:52 Oxygen Given 5L O2 01/18/23 19:52 O2 Delivery Device Ventilator 01/19/23 05:26 POC O2 Rate 20 01/19/23 05:26 POC FiO2 55 % 01/19/23 05:26 Tidal Volume 300 01/19/23 05:26 PEEP 6 01/19/23 05:26 POC Sodium 137 mmol/L (135-144) 01/19/23 05:26 Sodium 138 mmol/L (136-145) 01/19/23 10:23 POC Potassium 3.6 mmol/L (3.3-5.0) 01/19/23 05:26 Potassium 3.6 mmol/L (3.5-5.1) 01/19/23 10:23 Chloride 100 mmol/L (98-107) 01/19/23 10:23 Carbon Dioxide 27 mmol/L (21-32) 01/19/23 10:23 Anion Gap 11 (3-11) 01/19/23 10:23 BUN 45 mg/dl (6-23) H 01/19/23 10:23 Creatinine 2.03 mg/dl (0.6-1.2) H 01/19/23 10:23 Est Cr Clr Drug Dosing 16.5 ml/min 01/19/23 10:23 Est GFR ( Amer) 26.2 ml/min 01/19/23 10:23 Est GFR (Non-Af Amer) 22.6 ml/min 01/19/23 10:23 BUN/Creatinine Ratio 22.2 (10-20) H 01/19/23 10:23 Glucose 107 mg/dl (70-99(Fasting)) H 01/19/23 10:23 POC Glucose 105 mg/dl (70-99) H 01/19/23 03:54 Lactate 2.3 mmol/L (0.4-2.0) H* 01/19/23 10:27 Calcium 8.7 mg/dl (8.6-10.3) 01/19/23 10:23 Phosphorus 3.9 mg/dl (2.5-4.9) 01/19/23 05:19 Magnesium 1.6 mg/dl (1.7-2.4) L 01/19/23 05:19 Total Bilirubin 1.5 mg/dl (0.2-1.0) H 01/19/23 10:23 Direct Bilirubin 0.4 mg/dl (0-0.2) H 01/19/23 05:19 AST 400 U/L (13-39) H 01/19/23 10:23 ALT 272 U/L (7-52) H 01/19/23 10:23 Alkaline Phosphatase 127 U/L (34-104) H 01/19/23 10:23 Ammonia 28.0 umol/L (18-72) 01/19/23 10:27 Total Creatine Kinase 185 U/L (26-192) 01/18/23 16:48 Troponin I High Sens 591.0 pg/ml (0-14) H* 01/19/23 10:23 Total Protein 5.5 gm/dl (6.0-8.3) L 01/19/23 10:23 Albumin 3.1 gm/dl (3.4-5.0) L 01/19/23 10:23 Globulin 2.4 gm/dl (2.5-4.0) L 01/19/23 10:23 Albumin/Globulin Ratio 1.3 (0.9-2) 01/19/23 10:23 Procalcitonin 0.85 ng/ml (0-0.5) H 01/19/23 10:23 TSH 12.710 uIu/ml (0.300-4.500) H 01/18/23 16:48 Free T4 1.38 ng/dl (0.61-1.60) 01/18/23 16:48 Random Cortisol 8.58 mcg/dl 01/18/23 22:27 Urine Color Yellow 01/18/23 22:57 Urine Appearance Clear (Clear) 01/18/23 22:57 Urine pH 5.5 (4.5-7.5) 01/18/23 22:57 Ur Specific Corrigan 1.018 (1.000-1.030) 01/18/23 22:57 Urine Protein 1+ (Negative) H 01/18/23 22:57 Urine Glucose (UA) Negative (Negative) 01/18/23 22:57 Urine Ketones Negative (Negative) 01/18/23 22:57 Urine Blood 1+ (Negative) H 01/18/23 22:57 Urine Nitrite Negative (Negative) 01/18/23 22:57 Urine Bilirubin Negative (Negative) 01/18/23 22:57 Urine Urobilinogen Negative (Negative) 01/18/23 22:57 Ur Leukocyte Esterase Negative (Negative) 01/18/23 22:57 Urine WBC (Auto) 1-5 /hpf (0-5) 01/18/23 22:57 Urine RBC (Auto) 10-30 /hpf (0-4) H 01/18/23 22:57 U Hyaline Cast (Auto) 1-5 /lpf (0-5) 01/18/23 22:57 U Epithel Cells (Auto) 10-20 /lpf (0-5) H 01/18/23 22:57 Urine Bacteria (Auto) Negative (Negative) 01/18/23 22:57 Nasal Screen MRSA (PCR) Negative (Negative) 01/18/23 22:00 Acetaminophen 3 ug/ml (10-30) L 01/18/23 22:27 Adenovirus (PCR) Not Detected (NotDetected) 01/18/23 17:19 B. pertussis DNA (PCR) Not Detected (NotDetected) 01/18/23 17:19 B.parapertussis DNA PCR Not Detected (NotDetected) 01/18/23 17:19 C. pneumoniae DNA (PCR) Not Detected (NotDetected) 01/18/23 17:19 Coronavirus OC43 (PCR) Not Detected (NotDetected) 01/18/23 17:19 Coronavirus HKU1 (PCR) Not Detected (NotDetected) 01/18/23 17:19 Coronavirus 229E (PCR) Not Detected (NotDetected) 01/18/23 17:19 SARS-CoV-2 (PCR) Not Detected (NotDetected) 01/18/23 17:19 Coronavirus NL63 (PCR) Not Detected (NotDetected) 01/18/23 17:19 Human Metapneumovir PCR Not Detected (NotDetected) 01/18/23 17:19 Influenza Type A (PCR) Not Detected (NotDetected) 01/18/23 17:19 Influenza Type B (PCR) Not Detected (NotDetected) 01/18/23 17:19 M. pneumoniae (PCR) Not Detected (NotDetected) 01/18/23 17:19 Parainfluenza 1 (PCR) Not Detected (NotDetected) 01/18/23 17:19 Parainfluenza 2 (PCR) Not Detected (NotDetected) 01/18/23 17:19 Parainfluenza 3 (PCR) Not Detected (NotDetected) 01/18/23 17:19 Parainfluenza 4 (PCR) Not Detected (NotDetected) 01/18/23 17:19 RSV (PCR) Not Detected (NotDetected) 01/18/23 17:19 Entero/Rhino (PCR) Not Detected (NotDetected) 01/18/23 17:[address] 01/18/23 16:42 CT head/brain wo con CLINICAL HISTORY: AMS Technique: Contiguous axial CT images of the head were acquired from the base of the skull to the vertex without intravenous contrast administration. Images were viewed in brain, subdural and bone windows. Automated dose lowering techniques and/or adjustment according to patient size were utilized for this exam. Comparison: Comparison is made to CT head 04/18/2022 Findings: Areas of decreased attenuation are present in the periventricular and subcort ical white matter bilaterally consistent with small vessel ischemic disease. Generalized cerebral atrophy with commensurate enlargement of the ventricles, sulci, and cisterns is also present. There is no acute intracranial hemorrhage or evidence of acute territorial infarction. No shift of the midline structures, mass effect, or extra-axial abnormalities are shown. Atherosclerotic calcifications are present in the intracranial segments of the internal carotid arteries. Imaged portions of the paranasal sinuses and mastoid air cells are clear. There is evidence of bilateral cataract extraction and intraocular lens implantation. There are no acute fractures of the calvaria or scalp swelling. Impression: No acute intracranial hemorrhage, no evidence of acute territorial infarction or other acute intracranial disease process. ACT 112: Negative or not required by law. Electronically signed by: Ray Farooq M.D. 01/18/2023 5:18 PM Abdomen/Pelvis CT 01/18/23 18:56 Exam(s): CT ABDOMEN + PELVIS Without Contrast EXAM: CT Abdomen and Pelvis Without Intravenous Contrast CLINICAL HISTORY: Reason for exam: elevated lactic acid, recent SBO. TECHNIQUE: Axial computed tomography images of the abdomen and pelvis without intravenous contrast. CTDI is 17.63 mGy and DLP is 760.45 mGy-cm. Automated exposure control was utilized for the study. A dose lowering technique was utilized adhering to the principles of ALARA. COMPARISON: No relevant prior studies available. FINDINGS: Limitations: Limited without contrast. Pleural space: Trace left and small right pleural effusions. Heart: Cardiomegaly and pacemaker. Mediastinum: Large hiatal hernia. ABDOMEN: Liver: Unremarkable. Gallbladder and bile ducts: Suggestion mild nonspecific pericholecystic stranding. No radiodense gallstones. Pancreas: Unremarkable. Spleen: Unremarkable. Adrenals: Unremarkable. Kidneys and ureters: Severe atrophy of the left kidney. Stomach and bowel: Colonic diverticula without diverticulitis. Nonobstructive bowel gas pattern. PELVIS: Appendix: No findings to suggest acute appendicitis. Bladder: Unremarkable. Reproductive: Hysterectomy. Subperitoneal space: Presacral edema. ABDOMEN and PELVIS: Intraperitoneal space: Trace amounts of fluid in the peritoneal cavity. Edema in the mesentery/peritoneal cavity. No evidence of pneumatosis or extraluminal air. Bones/joints: Scoliosis. Soft tissues: Dependent edema in the subcutaneous tissues of the back. Vasculature: No acute process. IMPRESSION: 1. No evidence of pneumatosis or extraluminal air. 2. Suggestion mild nonspecific pericholecystic stranding. No radiodense gallstones. Electronically signed by: Allyson Mast M.D. 01/18/23 19:40 PM Portal Vein US 01/18/23 23:25 Exam(s): US OTHER duplex portal hepatic veins EXAM: US Duplex Arterial/Venous of the Abdomen, Complete CLINICAL HISTORY: Reason for exam: acute liver failure. TECHNIQUE: Real-time duplex ultrasound scan of the abdomen integrating B-mode two- dimensional vascular structure, Doppler spectral analysis and color flow Doppler imaging. COMPARISON: No relevant prior studies available. FINDINGS: Portal veins: There is pulsatile flow within the main portal vein which suggests underlying congestive hepatopathy. Hepatic artery: Unremarkable. Normal flow on color and spectral Doppler imaging. Hepatic veins: Unremarkable. Normal flow on color and spectral Doppler imaging. Splenic vein: Unremarkable. Normal flow on color and spectral Doppler imaging. IMPRESSION: Findings suggesting congestive hepatopathy. Electronically signed by: Ming Nuñez MD 01/19/23 00:57 AM Chest X-Ray 01/19/23 02:30 XR chest 1V portable HISTORY: 82 years-old Female eval ETT, OGT, lung anna acute respiratory failure COMPARISON: 01/18/2022 TECHNIQUE: AP view of the chest FINDINGS: Endotracheal tube overlies the midline, 1.5 cm superior to the carey. Distal tip of enteric tube coils of the left lower chest. Left subclavian pacer. Atherosclerosis of the aorta. Only vascular congestion with interstitial coarsening. Small pleural effusions with mild bibasilar consolidation. Hiatal hernia. Degenerative changes of the shoulders and spine. An additional tube projects over the lateral right lower chest which may be external to the patient. IMPRESSION: 1. Endotracheal tube overlies the midline, 1.5 cm superior to the carey. 2. Enteric tube distal tip coiled over the left lower chest, likely within the partially intrathoracic stomach. 3. Cardiomegaly with pulmonary edema. 4. Layering pleural effusions with bibasilar consolidation. ACT 112: Negative or not required by law. The above report was generated using voice recognition software. It may contain grammatical, syntax or spelling errors. Electronically signed by: Ted Wesley M.D. 01/19/2023 6:57 AM Duplex Scan Upper Extremity Artery 01/19/23 04:53 US arterial duplex UE RT HISTORY: 82 years-old Female evaluate right hand ischemia acute pain of the right upper extremity COMPARISON: None TECHNIQUE: Multiple real-time sonography images of the right upper cavity arterial structures were obtained assessing grayscale appearance, color and spectral flow FINDINGS: Subcutaneous edema. Occlusive thrombus within the distal radial artery with broken areas of trickle flow noted within the mid aspect of the radial artery. The upper aspect of the right artery is patent. There is a broken intermittent flow noted within the lumbar artery with elevated peak systolic velocities measuring up to 176 cm/s. Study is otherwise unremarkable. IMPRESSION: 1. Thrombus of the right radial artery. 2. Elevated peak systolic velocities within the ulnar artery compatible with areas of high-grade stenosis with possible areas of short segment occlusion. ACT 112: Negative or not required by law. The above report was generated using voice recognition software. It may contain grammatical, syntax or spelling errors. Electronically signed by: Ted Wesley M.D. 01/19/2023 9:10 AM PG Care Time/CCT Total # of Minutes Spent Total Time Spent with Patient: Total time spent is greater than 50% in coordination of care (as documented) at patient's floor/unit and/or counseling patient: Coding Level of Care Code 94183 INT INP/OBS CARE 3/75MIN Diagnoses Shock R57.9 Transaminitis R74.01 Ischemic cardiomyopathy I25.5
--- NOTE | 2023-01-19 12:31 | Electrocardiogram Report ---
Test Reason : Blood Pressure : / mmHG Vent. Rate : 096 BPM Atrial Rate : 096 BPM P-R Int : 160 ms QRS Dur : 102 ms QT Int : 370 ms P-R-T Axes : 062 -29 031 degrees QTc Int : 467 ms Normal sinus rhythm Possible Left atrial enlargement Poor R wave progression, consider anterior [place] vs. lead placement vs. LVH Abnormal ECG When compared with ECG of 27-APR-2022 13:16, Vent. rate has increased BY 43 BPM Nonspecific T wave abnormality has replaced inverted T waves in Inferior leads Nonspecific T wave abnormality no longer evident in Anterolateral leads QT has shortened Confirmed by Valentin Sevilla ([id number]) on 01/19/2023 12:31:31 PM Referred By: REFERRED SELF Confirmed By:Edouard Sevilla
--- NOTE | 2023-01-19 12:41 | Communication Note ---
Date of Service: January 19, 2023 Per the chart, patient admitted on 01/18/2023. 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 Upon presentation there was concern for severe sepsis with tachycardia, tachypnea, acute encephalopathy, and elevated lactate of 6.8 --> 8.0. Patient was fluid resuscitated with 2.5 L NS. CMP notable for elevated LFTs, MURRAY with Cr 1.93 on admit with electrolyte abnormalities - K 5.2, Na 131, HCO3 8. CBC unremarkable. HsTrop 368.1. She was also started on empiric abx zosyn/cefepime. She was found to have an elevated gap metabolic acidosis with a pH of 7.22 and a HCO3 of 8. Patient rapidly clinically deteriorated with acute respiratory failure requiring intubation. She ended up requiring 3 amps of HCO3. Was also given calcium chloride and ketamine. For further information on ED course see ED provider note. I was contacted by Dr. Ander Jones this morning concerning the patient's right upper extremity. He stated that the right hand and wrist area were mottled and cool and turning purple. A duplex artery scan was performed of the right upper extremity and was finding a complete thrombus in the right radial artery and also noted stenoses in the ulnar artery as well. There is question of how the thrombus occurred. He asked us to weigh in on possible treatment for this right upper extremity. Currently the patient is intubated and unresponsive. Her 2 daughters are present to give some of the history. With is much that she has going on currently, there is question of whether they are going to continue acute care. On examination of the right upper extremity, she has a noticeably purple right hand and fingers that are cool to the touch. The radial and ulnar pulses are absent/ not palpable at this time. Capillary refill is obviously poor. When I move her fingers passively she does not appear to be in discomfort however whenever I begin to flex the wrist a little bit and rotate the hand, she does have what appears to be a mild painful response. The hand is mild to moderately swollen at this time but not tense. I have briefly discussed this case with our on-call physician. He feels that the patient should be likely transferred to a tertiary facility to address this however with her present comorbidities, unsure if the vascular team's at [place] and [facility] would opt for treatment. Vascular consult could be placed. Unfortunately Dr. Cervantes is on vacation. Dr. Bose could be consulted to marc in on the current situation. nothing orthopedic in nature at this time that we could help with. I have discussed this with the patient's daughters and they understand. They will have to continue to converse with family and with the current medical team to see if they want to continue with acute care.
[2023-01-19 13:01] LABS: Echinocytes 1+
--- NOTE | 2023-01-19 15:07 | Electrocardiogram Report ---
Test Reason : Blood Pressure : / mmHG Vent. Rate : 083 BPM Atrial Rate : 083 BPM P-R Int : 156 ms QRS Dur : 094 ms QT Int : 372 ms P-R-T Axes : 038 -33 019 degrees QTc Int : 437 ms Normal sinus rhythm Possible Left atrial enlargement Left axis deviation Possible Lateral infarct (cited on or before 18-JAN-2023) Abnormal ECG When compared with ECG of 18-JAN-2023 20:52, (unconfirmed) No significant change was found Confirmed by Valentin Sevilla ([id number]) on 01/19/2023 3:07:08 PM Referred By: REFERRED SELF Confirmed By:Edouard Sevilla
[2023-01-19] MEDS: HYDROCORTISONE SOD 50 MG in SYRINGE 0 ML IV SCH (15:31)
--- NOTE | 2023-01-19 16:34 | Communication Note ---
Date of Service: January 19, 2023 Additional family presented to bedside: Patient's brother and a grandson. Discussed update of laboratory findings. No significant change in clinical status nor significant change in laboratory status. We discussed risks and benefits of transfer for further evaluation and possible management of ischemic right hand. We also discussed risk benefits of angiography to further delineate areas of obstruction which would involve contrast and could impact renal function as well as needed for arterial access. All in agreement that patient would not want additional evaluation at this time. Family reports patient has been comfortable with dying and end-of-life, it was reported patient was recently discharged from palliative care/hospice; she has made final arrangements and has been actively engaged in her life yet remains comfortable knowing that she is in a relative end-stage condition. Patient has slowly weaned herself off all cardiac medications and does not desire active medical treatment for congestive heart failure. She has turned off her AICD and remains confident in that decision to limit care. Accordingly we are looking at options of limiting aggressive care, we will not transfer for further evaluation for the right hand nor undergo invasive testing. We will continue with antibiotics and current level of care however we are not moving towards a aggressive escalation of care. There is additional family members coming tomorrow and the plan at this time is to reevaluate current condition as well as prognosis and will consider palliative/comfort with possible terminal extubation unless there is significant improvement in the next 12-24 hours. I have personally spent 25 minutes of critical care time in the direct managemen t of this patient. This is a life/limb threatening event. This includes time spent evaluating patient, direct bedside care, chart review, placing orders, interpretation of diagnostic studies, discussion with consultants, patient, and/or family members regarding treatment decisions, as well as other required patient management activities. This time is exclusive of all separately billable procedures, and teaching time and separate from and in addition to any other critical care service time. Coding Level of Care Code 62084 CRITICAL CARE EA ADD 30M
[2023-01-19] MEDS: ACETYLCYSTEINE 20% 200 MG/ML 30ML VIAL PO SCH ×2 (16:40→19:23)
--- NOTE | 2023-01-19 17:44 | XCELERA ---
[id number]\[id number]}___[id number]
--- NOTE | 2023-01-19 17:55 | Orthopedic Consultation ---
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 Unfortunately patient does not have good collateral circulation due to ulnar artery peripheral vascular disease as well and now has compromised circulation to her right hand. This will require treatment by a vascular specialist. If family desires intervention she will have to be transferred to another facility as our vascular specialist is not present at [facility]. Without treatment she will likely have necrosis of the hand and will require amputation. Possibly could consider vasodilators if compatible with other health issues that she is currently dealing with. History of Present Illness Reason for Consultation: right radial thrombosis Attending Physician: Izaiah Paez History of Present Illness 82-year-old female with multiple medical problems admitted for acute encephalopathy and sepsis and history of acute liver dysfunction with dysvascular right hand Allergies Allergy/AdvReac Type Severity Reaction Status Date / Time gabapentin AdvReac Intermediate SHAKING, Verified 01/18/23 15:41 JERKING MOVEMENTS ondansetron [From Zofran] AdvReac Intermediate Unknown Unverified 01/18/23 17:15 benztropine [From Cogentin] AdvReac Shakiness, Verified 01/18/23 15:41 jerking movements metoclopramide [From Reglan] AdvReac Shakiness, Verified 01/18/23 15:41 jerking movements Home Medications Medication Instructions Recorded Confirmed Type lorazepam 0.5 mg tablet 0.5 mg PO Q4H PRN anxiety #20 tabs 04/30/22 01/18/23 Rx prednisone 5 mg tablet 7.5 mg PO DAILY 05/06/22 01/18/23 History levothyroxine 100 mcg tablet 100 mcg PO DAILY #90 tabs 10/15/22 01/18/23 Rx acetaminophen 500 mg oral powder 1,000 mg PO Q6H PRN Pain 11/08/22 01/18/23 History packet (Tylenol Extra Strength) pantoprazole 40 mg tablet,delayed 40 mg PO BID #180 tabs 11/10/22 01/18/23 Rx release rotigotine 2 mg/24 hour 2 mg transdermal DAILY 11/10/22 01/18/23 History transdermal 24 hour patch (Neupro) furosemide 20 mg tablet (Lasix) 20 mg PO DAILY PRN weight gain #90 11/30/22 01/18/23 Rx tabs tramadol 50 mg tablet 50 mg PO TID PRN pain #90 tabs 12/20/22 01/18/23 Rx amoxicillin 875 mg-potassium 1 tab PO BID #20 tabs 01/16/23 01/18/23 Rx clavulanate 125 mg tablet hydroxychloroquine 200 mg tablet 200 mg PO DAILY #30 tabs 01/17/23 01/18/23 Rx (Plaquenil) Patient History Medical History Acid reflux Acute encephalopathy Acute hyponatremia Acute hyponatremia Acute hypoxemic respiratory failure Acute metabolic encephalopathy Acute CO Acute UTI CAD (coronary artery disease) CO in [place] in 02/2022. 1 stent placed (believe LCx, but not sure). 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 Dehydration, mild DVT prophylaxis DVT prophylaxis Dysuria Elevated troponin Hiatal hernia History of Hodgkin's lymphoma S/P RADIATION/CHEMO (2000) History of pelvic fracture Hyperlipidemia Hypertension Hypothyroidism Ischemic cardiomyopathy Mixed stress and urge urinary incontinence Nausea & vomiting On amiodarone therapy Restless leg syndrome Rheumatoid arthritis ON CHRONIC PREDNISONE 7.5MG DAILY Sciatica Scoliosis Stage 3b chronic kidney disease Ventricular tachycardia Surgical History H/O foot surgery 2ND RT TOE REMOVED History of bilateral cataract extraction RIGHT CATARACT EXTRACTION WITH IOL= 04/05/18= MAC SEDATION AT [facility] History of colonoscopy History of gynecologic surgery ANTERIOR AND POSTERIOR REPAIR - colporrhaphy (for pelvic relaxation) History of removal of cyst HEAD (BENIGN) History of tonsillectomy History of tooth extraction History of total knee replacement RT History of urologic surgery URETEROLYSIS- 04/1995 [facility] [place] S/P coronary artery stent placement S/P vaginal hysterectomy Status post right knee replacement Family History Mother , age 80 Cardiac disorder Family history of lung cancer Brother Diabetes Family history of lung cancer Family history of diabetes mellitus Daughter Breast cancer Father , age 57 Cardiac disorder Grandmother Diabetes Aunt Ovarian cancer paternal aunt Grandmother (Paternal) Family history of diabetes mellitus Other Cancer Heart disease No family history of adverse response to anesthesia No family history of bleeding disorder Denies family history of Colon cancer Colorectal cancer Social History Smoking Status: Former smoker Tobacco Type: Cigarettes Cigarettes Per Day: QUIT + 30 YEARS AGO; Second Hand Exposure: No; Do You Dip or Chew Tobacco: No; Hx Alcohol Use: No Hx Substance Use: No Preferred Language: Trinidadian Communication Ability: Impaired Communication Ability Comment: Non-verbal, confused at this time. 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 No palpable pulses Results & Data Vital Signs (Past 12 Hours) Vital Signs Temp Pulse Resp BP Pulse Ox O2 Del Method FiO2 01/19/23 16:00 37.6 C H 76 21 98 01/19/23 15:00 37.7 C H 75 18 97 01/19/23 14:00 37.6 C H 78 21 98 01/19/23 13:00 37.7 C H 77 20 94 01/19/23 16:00 76 01/19/23 16:00 25 01/19/23 16:00 76 117/60 01/19/23 15:25 75 19 98 25 01/19/23 12:00 37.7 C H 86 21 97 01/19/23 11:00 37.8 C H 86 21 95 01/19/23 10:00 37.8 C H 84 25 H 99 01/19/23 09:00 37.8 C H 81 21 97 01/19/23 08:00 37.8 C H 78 21 98 01/19/23 07:00 37.8 C H 80 20 98 01/19/23 06:45 37.8 C H 81 20 98 01/19/23 12:00 84 01/19/23 12:00 25 01/19/23 12:00 84 129/62 01/19/23 10:54 Mechanical Vent 25 01/19/23 10:36 84 26 H 98 25 01/19/23 08:00 30 01/19/23 08:00 80 115/58 L 01/19/23 08:00 80 01/19/23 07:50 80 28 H 97 30 01/19/23 06:00 37.8 C H 83 20 98
[2023-01-19] MEDS: PIPERACILLIN/TAZOBACTAM 4.5 GM CI (over 4 hours) IV SCH (18:42)
[2023-01-19] MEDS: HEPARIN SOD 5,000 UNIT/0.5 ML VIAL SQ SCH (19:23)
--- NOTE | 2023-01-19 22:26 | Hospitalist Progress Note ---
Date of Service January 19, 2023 Assessment & Plan (1) Sepsis: Plan: 82 y/o female with a PMHx of ischemic cardiomyopathy 2/2 AL with ICD placed since deactivated, CAD s/p stent placement, adrenal insufficiency, restless leg syndrome, CKD3, RA on prednisone 7.5 mg QD, hypothyroidism, HTN, HLD here for readmission after discharge 01/16 for partial small bowel obstruction now with altered mental status and lab abnormalities who clinically deteriorated in the ED requiring intubation and sedation admitted to ICU level care. Family meeetings being held with ICU team regarding how aggressive treatment will be. I was present during multidiscplinary rounds. Neuro #Acute Encephalopathy Etiology unclear. Likely in the setting of severe sepsis. Sedated and intubated. Propofol for initiation of sedation. Fentanyl gtt. Respiratory #Acute Respiratory Failure Likely in the setting of acidosis and sepsis. Intubated, mechanical ventilation. Will trial for 24 hours per advanced directive. Family at bedside. CV #Extensive cardiac history. CAD with stent placement. Ischemic cardiomyopathy following AL. Had ICD placed - has since been deactivated. Patient DNR. #Elevated troponin, demand ischemia 2/2 septic shock Trend trops Renal/Metabolic #Elevated Anion Gap Metabolic Acidosis Etiology unclear. Lactate 6.8 --> 8.0. ABG: pH 7.22 pCO2 20 pO2 106 HCO3 8. Patient s/p 3 amps of HCO3. Now on HCO3 gtt 150 mL/hr. pH improved after HCO3. Q4H ABG. #MURRAY on CKD Cr 1.93 on admit with electrolyte abnormalities - K 5.2, Na 131, HCO3 8. Cr on discharge 01/16 of 1.3. S/p fluid resuscitation with 2.5 L NS. On bicarb gtt. Continue to monitor. ID #Severe Sepsis Patient tachycardic and tachypneic with elevated lactate and subsequent anion gap acidosis. Etiology unclear, possible intraabdominal. UA with culture, Blood cultures collected. Started on empiric cefepime and vanc. Continue while awaiting culture results. FENGI #Transaminitis Elevated LFTs. Likely in the setting of acute sepsis vs intraabdominal etiology. CT A&P suggestive of mild nonspecific pericholecystic stranding. No radiodense gallstones. Abd US ordered for further evaluation. Rheum #Adrenal Insufficiency Patient on 7.5 mg pred at home. May need stress dosing of steroids in setting of acute sepsis. Heme Elevated INR and PT. HDS. No signs of bleeding. Etiology unclear. Continue to monitor. UA pending. Velázquez in place. Code status: conditional code - DNR, conditional intubation for 24 hrs to trial - family has documentation FENGI: HCO3 gtt, OGT to be placed Dispo: ICU Lines: right fem line, left a-line Admission and Anticipated Discharge Date Admission Date: January 18, 2023 Subjective Patient is intubated and sedated. Review of Systems Review of Systems: All systems reviewed & are unremarkable except as noted in HPI & below Physical Exam Physical Exam: Patient is intubated and sedated Results & Data Results & Data Vital Signs (Past 12 Hours) Vital Signs Temp Pulse Resp BP Pulse Ox O2 Del Method FiO2 01/19/23 21:19 Mechanical Vent 25 01/19/23 20:00 25 01/19/23 21:00 37.6 C H 75 18 98 01/19/23 20:00 37.6 C H 71 18 97 01/19/23 19:00 37.6 C H 84 21 98 01/19/23 20:18 74 19 97 25 01/19/23 18:00 37.5 C 77 19 98 01/19/23 17:00 37.5 C 76 19 98 01/19/23 16:00 37.6 C H 76 21 98 01/19/23 15:00 37.7 C H 75 18 97 01/19/23 14:00 37.6 C H 78 21 98 01/19/23 13:00 37.7 C H 77 20 94 01/19/23 16:00 76 01/19/23 16:00 25 01/19/23 16:00 76 117/60 01/19/23 15:25 75 19 98 25 01/19/23 12:00 37.7 C H 86 21 97 01/19/23 11:00 37.8 C H 86 21 95 01/19/23 12:00 84 01/19/23 12:00 25 01/19/23 12:00 84 129/62 01/19/23 10:54 Mechanical Vent 01/19/23 10:36 84 26 H 98 25 PG Care Time/CCT Total # of Minutes Spent Total Time Spent with Patient: Total time spent is greater than 50% in coordination of care (as documented) at patient's floor/unit and/or counseling patient: Coding Level of Care Code 49923 SUB INP/OBS CARE 235MIN Diagnoses Sepsis A41.9
[2023-01-20] MEDS: ACETYLCYSTEINE 20% 200 MG/ML 30ML VIAL PO SCH ×5 (00:02→14:12)
[2023-01-20] MEDS: HYDROCORTISONE SOD 50 MG in SYRINGE 0 ML IV SCH (00:03)
[2023-01-20] MEDS: fentaNYL citrate PF 100 MCG/2 ML VIAL IV PRN ×5 (01:42→23:48)
[2023-01-20 05:37] LABS: Albumin Globulin Ratio 1.1 (0.9-2); Albumin Level 3.1 gm/dl (3.4-5.0); BUN Creatinine Ratio 21.7 (10-20); Bilirubin Direct 0.3 mg/dl (0-0.2); Bilirubin,Total 0.9 mg/dl (0.2-1.0); Calcium 8.4 mg/dl (8.6-10.3); Creatinine Clr Calc Pharmacy 16.2 ml/min; Est GFR (African American) 25.6 ml/min; Est GFR (Non-African American) 22.1 ml/min; Globulin 2.7 gm/dl (2.5-4.0); Magnesium 2.5 mg/dl (1.7-2.4); Phosphorus 5.3 mg/dl (2.5-4.9); Total Protein 5.8 gm/dl (6.0-8.3)
[2023-01-20 05:54] LABS: INR 1.3 (0.9-1.1); Prothrombin Time 14.5 Seconds (9.0-12.0)
[2023-01-20 05:56] LABS: Basophils # (auto) 0.02 K/uL (0-0.2); Basophils % (auto) 0.2 %; Hemoglobin 10.8 g/dl (12.0-16.0); Immature Granulocytes # (auto) 0.15 K/uL (0.01-0.20); Immature Granulocytes % (auto) 1.6 %; Lymphocytes # (auto) 1.04 K/uL (1.2-3.4); Lymphocytes % (auto) 10.8 %; Mean Corpuscular Hemoglobin 27.6 pg (25.0-34.0); Mean Corpuscular Hgb Conc 33.8 g/dL (32.0-36.0); Mean Corpuscular Volume 81.6 fL (80.0-100.0); Mean Platelet Volume 10.3 fL (9.4-12.4); Monocytes % (auto) 5.2 %; Neutrophils # (auto) 7.95 K/uL (1.40-6.50); Neutrophils % (auto) 82.2 %; Nucleated RBC # (auto) 0.09 K/uL (0-0.12); Nucleated RBC % (auto) 0.9 %; Platelet Count 98 K/uL (130-400); Platelet Estimate Decreased (Normal); Polychromasia 1+; RDW Coefficient of Variation 17.4 % (11.5-14.5); RDW Standard Deviation 50.2 fL (36.4-46.3); Red Blood Count 3.92 M/uL (4.20-5.40); White Blood Count 9.66 K/ul (4.8-10.8)
[2023-01-20] MEDS: HEPARIN SOD 5,000 UNIT/0.5 ML VIAL SQ SCH (06:11)
[2023-01-20] MEDS ORDERED: POTASSIUM CHLORIDE / WTR 20 MEQ/100 ML PLCT IV ONE (06:30)
[2023-01-20] MEDS: PIPERACILLIN/TAZOBACTAM 4.5 GM CI (over 4 hours) IV SCH (06:31)
[2023-01-20] MEDS: predniSONE 2.5 MG TAB PO SCH (08:09)
[2023-01-20] MEDS: ICU Protocol for HYPERglycemia SCH ×2 (08:11→12:44)
[2023-01-20] MEDS ORDERED: THIAMINE HCL 200 MG in SODIUM CHLORIDE 0.9% 50 ML IV SCH (09:00)
[2023-01-20] MEDS ORDERED: VANCOMYCIN HCL 500 MG in NSS 100mL IV ONE (09:00)
--- NOTE | 2023-01-20 09:35 | Critical Care Progress Note ---
Date of Service January 20, 2023 Assessment & Plan (1) CHALO (acute liver failure): Plan: Reason Critically Ill: Patient presents with acute severe metabolic acidosis in the setting of elevated liver enzymes, encephalopathy, and MURRAY. She was intubated in the EMD to allow for resuscitation and correction of her acid base balance with her known history of sever ICM with EF 25-30%. If not reversible or improving and if unable to wean from ventilator transition to palliation. Neuro - Metabolic Encephalopathy weaned sedation hopeful to have extubation -Repeat ammonia decreased Cardiac - HFrEF, ICM, Elevated HScTNI, Shock, MILD MR - She has not needed vasopressor support and has remained hemodynamically stable - Cautious use of diuretics -Reviewed echocardiogram no report of bubble study being performed Respiratory -discussed with family goals of care we will proceed with extubation as patient is on minimal settings FiO2 of 30%, tolerating pressure support ventilation GI -acute liver failure, -Minimally improving transaminitis - Patient arrives with no history of cirrhosis- she is with elevated INR to 1.7 and acute onset of acute encephalopathy Grade II that progressed to Grade III and lactic acidosis -Acute hepatitis panel -Reviewed GI consultation -Repeat coags improving -Portal venous duplex reviewed -Broad-spectrum antibiotics over concern for possible ascending cholangitis -Gastroenterology consulted -Mucomyst protocol ordered RENAL/LYTES - MURRAY on CKD: Stage IIIb, mildly worsening - 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 - Lactic acid acidosis: Improving -Trial of Lasix: 40 mg IV x1 -Hypokalemia oral and IV supplementation - No acute needs - Velázquez placed for accurate I/O ENDO - Hypothyroidism - On Synthroid at home -T4 within normal limits Rheumatoid arthritis -On daily prednisone 7.5 mg and hydroxychloroquine -Stress dose steroids 50 mg hydrocortisone every 8x2 doses -Continue 7.5 mg prednisone daily HEME - HX of RA on immunosuppressant agents: Hydroxychloroquine - Hold immunosuppressant agents Supratherapeutic INR: improving -DIC versus acute liver failure: Peripheral smear reviewed more consistent with acute liver failure and not DIC -We will start heparin infusion secondary to ischemic right upper extremity and improvement in coags. ID - Normal WBC and normal PCT - Received Cefepime and Vancomycin in EMD- currently without source - Urine clean -Zosyn and vancomycin for possible ascending cholangitis -Procalcitonin minimally elevated we will continue with broad-spectrum for 48 hours if no growth would discontinue antibiotics Musculoskeletal: Right radial artery thrombus, [id number] -Orthopedic surgery consult -Discussed with family with regards to further evaluation, need for surgery, anticoagulation, possible transfer to tertiary care center, aggressive treatment not in line with patient's wishes -Right hand clearly ischemic if hand is less than functional this would be profoundly debilitating in a 82-year-old [id number] person LINES/IV ACCESS - CVL, Arterial line, ETT, Velázquez catheter, OGT -Possible cuff leak from endotracheal tube. Maintaining oxygen saturations and volumes okay. Planned extubation today. DVT PROPHYLAXIS - SCDS DISPO - ICU 11:00 update. 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 We are hopeful she will regain some meaningful consciousness and allow interaction, however, we have discussed possibility of agitation and would transition to comfort measures should she decompensate. (2) Respiratory failure: (3) ICD (implantable cardioverter-defibrillator), single, in situ: (4) Chronic kidney disease, stage III (moderate): (5) Hyperlipidemia: (6) Chronic systolic CHF (congestive heart failure): (7) Ischemic cardiomyopathy: (8) CAD (coronary artery disease): (9) Shock: Admission and Anticipated Discharge Date Admission Date: January 18, 2023 Supervising Physician Co-Signing Physician Notes I have personally spent 55 minutes of critical care time in the direct management of this patient. This is a life/limb threatening event. This includes time spent evaluating patient, direct bedside care, chart review, placing orders, interpretation of diagnostic studies, discussion with consultants, patient, and/or family members regarding treatment decisions, as well as other required patient management activities. This time is exclusive of all separately billable procedures, and teaching time and separate from and in addition to any other critical care service time. Subjective No overnight events. Additional family members arrived at bedside. Discussed current status and prognosis. Discussed possibility of obtaining MRI to rule out CVA however I think this is unlikely. It would not change current management or therapeutic interventions, therefore we will continue with weaning sedation and move towards hopeful extubation. Physical Exam Physical Exam: General: Sedated. Glascow Coma Scale: Eyes: 2, Verbal 1t, Motor 4, Total 7T Skin: Right hand cool, purple, taunt: Obvious evidence of ischemia Head: Atraumatic Ears, nose, mouth and throat: airway obscured by endotracheal tube Cardiovascular: Improved acrocyanosis Respiratory: Ventilator settings reviewed Gastrointestinal: Non distended Musculoskeletal: As described above Results & Data Results & Data Vital Signs (Past 12 Hours) Vital Signs Temp Pulse Resp BP Pulse Ox O2 Del Method FiO2 01/20/23 09:00 66 14 97 01/20/23 08:00 37.1 C 79 20 99 01/20/23 07:00 37.1 C 70 18 98 01/20/23 06:45 37.1 C 67 18 98 01/20/23 09:05 Mechanical Vent 25 01/20/23 08:00 25 01/20/23 08:00 72 123/68 01/20/23 08:00 72 01/20/23 07:38 72 20 96 25 01/20/23 02:47 18 25 01/20/23 05:00 37.2 C 77 24 98 01/20/23 04:00 37.0 C 71 15 98 01/20/23 03:00 37.2 C 67 16 93 01/20/23 04:00 25 01/20/23 02:00 37.3 C 67 16 95 01/20/23 01:00 37.3 C 74 16 98 01/20/23 00:00 37.4 C 69 16 98 01/20/23 00:38 25 01/19/23 23:00 37.5 C 78 17 99 01/19/23 22:00 37.5 C 77 20 98 01/19/23 23:44 18 25 01/19/23 23:42 71 Critical Care Results & Data Vital Signs (Past 12 Hours) Vital Signs Temp Pulse Resp BP Pulse Ox O2 Del Method FiO2 01/20/23 09:00 66 14 97 01/20/23 08:00 37.1 C 79 20 99 01/20/23 07:00 37.1 C 70 18 98 01/20/23 06:45 37.1 C 67 18 98 01/20/23 09:05 Mechanical Vent 25 01/20/23 08:00 25 01/20/23 08:00 72 123/68 01/20/23 08:00 72 01/20/23 07:38 72 20 96 25 01/20/23 02:47 18 25 01/20/23 05:00 37.2 C 77 24 98 06/15/23 04:00 37.0 C 71 15 98 01/20/23 03:00 37.2 C 67 16 93 01/20/23 04:00 25 01/20/23 02:00 37.3 C 67 16 95 01/20/23 01:00 37.3 C 74 16 98 01/20/23 00:00 37.4 C 69 16 98 01/20/23 00:38 25 01/19/23 23:00 37.5 C 78 17 99 01/19/23 22:00 37.5 C 77 20 98 01/19/23 23:44 18 25 01/19/23 23:42 71 Lab & Micro Results (Past 24 Hours) RBC 3.92 M/uL (4.20-5.40) L 01/20/23 WBC 9.66 K/ul (4.8-10.8) 01/20/23 Hgb 10.8 g/dl (12.0-16.0) L 01/20/23 Hct 32.0 % (37.0-47.0) L 01/20/23 MCV 81.6 fL (80.0-100.0) 01/20/23 MCH 27.6 pg (25.0-34.0) 01/20/23 MCHC 33.8 g/dL (32.0-36.0) 01/20/23 RDW Standard Deviation 50.2 fL (36.4-46.3) H 01/20/23 RDW Coefficient of Variation 17.4 % (11.5-14.5) H 01/20/23 Plt Count 98 K/uL (130-400) L 01/20/23 MPV 10.3 fL (9.4-12.4) 01/20/23 Nucleated Red Blood Cells % (auto) 0.9 % 01/20 Nucleated RBC Absolute Count (auto) 0.09 K/uL (0-0.12) 01/06 12/28 Neutrophils (%) (Auto) 82.2 % 01/20/23 Lymphocytes (%) (Auto) 10.8 % 01/20/23 Monocytes # (Auto) 0.50 K/uL (0.11-0.59) 01/20/23 Eosinophils # (Auto) 0.00 K/uL (0-0.50) 01/20/23 Immature Granulocyte % (Auto) 1.6 % 01/20/23 Neutrophils # (Auto) 7.95 K/uL (1.40-6.50) H 01/20/23 Lymphocytes # (Auto) 1.04 K/uL (1.2-3.4) L 01/20/23 Monocytes # (Auto) 0.50 K/uL (0.11-0.59) 01/20/23 Eosinophils # (Auto) 0.00 K/uL (0-0.50) 01/20/23 Basophils # (Auto) 0.02 K/uL (0-0.2) 01/20/23 Immature Granulocyte # (Auto) 0.15 K/uL (0.01-0.20) 3 Polychromasia 1+ 01/20/23 Na 142 mmol/L (136-145) 01/20/23 K 3.0 mmol/L (3.5-5.1) L 01/20/23 Cl 102 mmol/L (98-107) 01/20/23 CO2 24 mmol/L (21-32) 01/20/23 Anion Gap 16 (3-11) H 01/20/23 BUN 45 mg/dl (6-23) H 01/20/23 Creatinine 2.07 mg/dl (0.6-1.2) H 01/20/23 Estimated GFR ( Amer) 25.6 ml/min 01/20/23 Estimated GFR (Non-Af Amer) 22.1 ml/min 01/20/23 BUN/Creatinine Ratio 21.7 (10-20) H 01/20/23 Glu 128 mg/dl (70-99(Fasting)) H 01/20/23 Ca 8.4 mg/dl (8.6-10.3) L 01/20/23 Phosphorus Level 5.3 mg/dl (2.5-4.9) H 01/20/23 Total Bilirubin 0.9 mg/dl (0.2-1.0) 01/20/23 Direct Bilirubin 0.3 mg/dl (0-0.2) H 01/20/23 AST 193 U/L (13-39) H 01/20/23 ALT 248 U/L (7-52) H 01/20/23 Alkaline Phosphatase 115 U/L (34-104) H 01/20/23 TP 5.8 gm/dl (6.0-8.3) L 01/20/23 Albumin 3.1 gm/dl (3.4-5.0) L 01/20/23 Globulin 2.7 gm/dl (2.5-4.0) 01/20/23 Albumin/Globulin Ratio 1.1 (0.9-2) 01/20/23 Mg 2.5 mg/dl (1.7-2.4) H 01/20/23 04:51 Calcium Level 8.4 mg/dl (8.6-10.3) L 01/20/23 04:51 Prothromb Time International Ratio 1.3 (0.9-1.1) H 01/20/23 04 :51 Microbiology 01/18/23 19:52 Aerobic Blood Culture - Preliminary Blood No growth in Aerobic bottle after 24 hours. Anaerobic Blood Culture - Final I & O Totals 24 Hours 01/19/23 01/20/23 01/21/23 06:59 06:59 06:59 Intake Total 3775.682 / 3775.682 952.692 / 952.692 152 / 152 Output Total 515 / 515 1081 / 1081 Balance 3260.682 / 3260.682 -128.308 / -128.308 152 / 152 Cumulative 01/18/23 16:21 thru 01/20/23 08:37 Intake Total 4880.374 Output Total 1596 Balance 3284.374 RT Ventilator Mngmt (Last Documented) Ventilator Ordered Settings Ventilator Support Mode Assist Control 01/20/23 08:00 Respiratory Rate 14 01/20/23 09:00 Ventilator Tidal Volume 300 01/20/23 08:00 Setting Minute Ventilation 5.8 01/20/23 07:38 Positive End Expiratory 5 01/20/23 08:00 Pressure Fraction of Inspired Oxygen 25 01/20/23 09:05 Peak Inspiratory Flow 30 01/20/23 07:38 Machine Comment FiO2 decreased to 25% 01/19/23 10:36 Ventilator - PT Measurements Respiratory Rate 14 Exhaled Tidal Volume 305 Minute Ventilation 5.8 Peak Inspiratory Airway 11 Pressure Plateau Pressure 13.3 Respiratory Cycle Inspiratory: 1:1.6 Expiratory Ratio Inspiratory Phase Time 0.80 End-Tidal CO2 33 Static Lung Compliance 36.75 Dynamic Lung Compliance 50.83 Normal Static Lung Compliance 49.00 Patient Measurements Comment decreased fio2, peep, and respiratory rate per Star after reviewing ABG results Coding Level of Care Code 09663 CRITICAL CARE 1ST 30-74M Diagnoses NURSING HOME (acute liver failure) K72.00 Respiratory failure J96.90 ICD (implantable cardioverter-defibrillator), single, in situ Z95.810 Chronic kidney disease, stage III (moderate) N18.30 Hyperlipidemia E78.5 Chronic systolic CHF (congestive heart failure) I50.22 Ischemic cardiomyopathy I25.5 CAD (coronary artery disease) I25.10 Associated angina: without angina Coronary Disease-Associated Artery/Lesion type: [place] artery [place] vs. transplanted heart: [place] heart Shock R57.9 (8) CAD (coronary artery disease) Associated angina: without angina Coronary Disease-Associated Artery/Lesion type: [place] artery [place] vs. transplanted heart: [place] heart Qualified Code(s): I25.10 - Atherosclerotic heart disease of [place] coronary artery without angina pectoris
[2023-01-20] MEDS: PANTOprazole 40 MG in SYRINGE 0 ML IV SCH (09:37)
[2023-01-20] MEDS ORDERED: POTASSIUM CHLORIDE 20 MEQ/15 ML UDC GT ONE (10:00)
--- NOTE | 2023-01-20 10:07 | Pharmacy Report ---
Pharmacy PK ABX Note - Date of Service January 20, 2023 - Assessment and Plan Assessment 82 year old F receiving vancomycin and zosyn empirically for GI coverage. Blood culture no growth at 24h. MURRAY on CKD - SCr (1.93 -->1.79-->2.07). UOP improving -0.79ml/kg/hr Day #3 of antimicrobial therapy. Plan Vancomycin * Dosing by levels- 500mg IV X 1 given yesterday AM * Random level this AM (~18hr level)- 13.2mcg/mL indicating safe to re-dose. * Vanc 500mg IV X 1 now- repeat random level in AM. If renal function stabilizes, may be able to schedule if antibiotics continue. Pharmacy will continue to follow and will adjust dose/frequency as necessary. Thank you. Pharmacy has transitioned to AUC monitoring for vancomycin. AUC/MAGGY is the preferred PK/PD target and is associated with decreased risk of nephrotoxicity compared to traditional trough targets. 4
--- NOTE | 2023-01-20 10:22 | Gastroenterology Progress Note ---
Date of Service January 20, 2023 Assessment & Plan (1) Shock: (2) Transaminitis: (3) Ischemic cardiomyopathy: Plan: 82 y.o. female admitted with AMS changes, currently with endotracheal intubation with elevated liver panel in the setting of elevated troponin and portal duplex with findings of congestive hepatopathy. Suspect shock liver from congestive/ischemic hepatitis. -Recommend cardiology consultation. -Trend liver and coag panel. -Continue supportive care. -Will sign off at this time. Admission and Anticipated Discharge Date Admission Date: January 18, 2023 Subjective Patient remains with ET tube but is being weaned from the ventilator. Review of labs demonstrates slightly improved troponin and improved liver enzymes. Review of Systems Review of Systems: Unobtainable due to endotracheal tube Physical Exam Constitutional: no acute distress Respiratory: + abnormal respiratory pattern Auscultation: + rhonchi Cardiovascular: Rate/Rhythm: regular rate and regular rhythm Gastrointestinal (Abdomen): Inspection/Auscultation: normal bowel sounds Results & Data Results & Data Vital Signs (Past 12 Hours) Vital Signs Temp Pulse Resp BP Pulse Ox O2 Del Method FiO2 01/20/23 09:00 66 14 97 01/20/23 08:00 37.1 C 79 20 99 01/20/23 07:00 37.1 C 70 18 98 01/20/23 06:45 37.1 C 67 18 98 01/20/23 09:05 Mechanical Vent 25 01/20/23 08:00 25 01/20/23 08:00 72 123/68 01/20/23 08:00 72 01/20/23 07:38 72 20 96 25 01/20/23 02:47 18 25 01/20/23 05:00 37.2 C 77 24 98 01/20/23 04:00 37.0 C 71 15 98 01/20/23 03:00 37.2 C 67 16 93 01/20/23 04:00 25 01/20/23 02:00 37.3 C 67 16 95 01/20/23 01:00 37.3 C 74 16 98 01/20/23 00:00 37.4 C 69 16 98 01/20/23 00:38 25 01/19/23 23:00 37.5 C 78 17 99 01/19/23 23:44 18 25 01/19/23 23:42 71 PG Care Time/CCT Total # of Minutes Spent Total Time Spent with Patient: Total time spent is greater than 50% in coordination of care (as documented) at patient's floor/unit and/or counseling patient: Coding Level of Care Code 59606 SUB INP/OBS CARE 350MIN Diagnoses Shock R57.9 Transaminitis R74.01 Ischemic cardiomyopathy I25.5
[2023-01-20] MEDS ORDERED: FUROSEMIDE 40 MG/4 ML VIAL IV ONE (10:52)
[2023-01-20] MEDS ORDERED: Heparin IV Adult Wt-Based Standard *NO* Bolus Protocol IV SCH (11:15)
--- NOTE | 2023-01-20 11:39 | XRay Report ---
XR chest 1V portable CLINICAL HISTORY: eval ETT, OGT, lung anna TECHNIQUE: Single frontal radiograph of the chest was obtained. Comparison: Comparison is made to chest radiograph 01/19/2023 FINDINGS: Endotracheal tube tip is at the carey. Enteric tube appears coiled, likely within the stomach. Calci fied aortic knob is seen. Questionable lower lung airspace opacities. Small bilateral pleural effusio ns are seen. IMPRESSION: 1. The endotracheal tube is at the carey and can be withdrawn approximately 3 cm for improved posit ioning. Enteric tube is unchanged and likely below the diaphragm. 2. Layering pleural effusions with underlying airspace opacities, unchanged. ACT 112: Negative or not required by law. Electronically signed by: Ray Farooq M.D. 01/20/2023 11:38 AM
[2023-01-20] MEDS: HEPARIN SODIUM/DEXTROSE 25,000 UNITS/500 ML BAG IV SCH (11:46)
[2023-01-20] MEDS: POTASSIUM CHLORIDE / WTR 20 MEQ/100 ML PLCT IV SCH ×2 (12:45→14:12)
[2023-01-20] MEDS: propofoL 1,000 MG/100 ML VIAL IV SCH ×2 (13:32→18:17)
[2023-01-20] MEDS ORDERED: LORazepam 2 MG/1 ML VIAL IV PRN (17:45)
[2023-01-20] MEDS ORDERED: LORazepam 0.5 MG TAB PO PRN (17:45)
[2023-01-20] MEDS ORDERED: ONDANSETRON 4 MG OD TAB SL PRN (17:45)
[2023-01-20] MEDS ORDERED: ONDANSETRON INJ 2 MG/ML 2 ML VIAL IV PRN (17:45)
[2023-01-20] MEDS ORDERED: MoRPHine SULF/NSS 250 MG/250 ML BTL IV SCH (17:45)
[2023-01-20] MEDS ORDERED: MoRPHine BOLUS from BAG IV PRN (17:45)
--- NOTE | 2023-01-20 18:51 | Electrocardiogram Report ---
Test Reason : Blood Pressure : / mmHG Vent. Rate : 092 BPM Atrial Rate : 092 BPM P-R Int : 160 ms QRS Dur : 100 ms QT Int : 388 ms P-R-T Axes : 041 -24 020 degrees QTc Int : 479 ms Normal sinus rhythm Possible Left atrial enlargement Lateral infarct (cited on or before 18-JAN-2023) Abnormal ECG When compared with ECG of 18-JAN-2023 16:33, No significant change was found Confirmed by Valentin Sevilla ([id number]) on 01/20/2023 6:51:21 PM Referred By: REFERRED SELF Confirmed By:Edouard Sevilla
[2023-01-20 19:20] LABS: Partial Thromboplastin Ratio 3.1
--- NOTE | 2023-01-20 19:25 | Electrocardiogram Report ---
Test Reason : Blood Pressure : / mmHG Vent. Rate : 068 BPM Atrial Rate : 068 BPM P-R Int : 162 ms QRS Dur : 110 ms QT Int : 426 ms P-R-T Axes : 038 -38 -04 degrees QTc Int : 452 ms Normal sinus rhythm Possible Left atrial enlargement Left axis deviation Lateral infarct (cited on or before 18-JAN-2023) Abnormal ECG When compared with ECG of 19-JAN-2023 06:06, No significant change was found Confirmed by Valentin Sevilla ([id number] on 01/20/2023 7:25:45 PM Referred By: REFERRED SELF Confirmed By:Edouard Sevilla
--- NOTE | 2023-01-20 23:46 | Hospitalist Progress Note ---
Date of Service January 20, 2023 Assessment & Plan (1) Sepsis: Plan: 82 y/o female with a PMHx of ischemic cardiomyopathy 2/2 NH with ICD placed since deactivated, CAD s/p stent placement, adrenal insufficiency, restless leg syndrome, CKD3, RA on prednisone 7.5 mg QD, hypothyroidism, HTN, HLD here for readmission after discharge 01/16 for partial small bowel obstruction now with altered mental status and lab abnormalities who clinically deteriorated in the ED requiring intubation and sedation admitted to ICU level care. Family meeetings being held with ICU team regarding how aggressive treatment will be. I was present during multidiscplinary rounds. Plan to terminally extubate today and will see how patient does. Currently no plans for escalation of care. Neuro #Acute Encephalopathy Etiology unclear. Likely in the setting of severe sepsis. Sedation is off and intubated. Respiratory #Acute Respiratory Failure Likely in the setting of acidosis and sepsis. Intubated, mechanical ventilation. Will trial for 24 hours per advanced directive. Family at bedside. CV #Extensive cardiac history. CAD with stent placement. Ischemic cardiomyopathy following NH. Had ICD placed - has since been deactivated. Patient DNR. #Elevated troponin, demand ischemia 2/2 septic shock \ Renal/Metabolic #Elevated Anion Gap Metabolic Acidosis Etiology unclear. Lactate 6.8 --> 8.0. ABG: pH 7.22 pCO2 20 pO2 106 HCO3 8. Patient s/p 3 amps of HCO3. Now on HCO3 gtt 150 mL/hr. pH improved after HCO3. Q4H ABG. #MURRAY on CKD Cr 1.93 on admit with electrolyte abnormalities - K 5.2, Na 131, HCO3 8. Cr on discharge 01/16 of 1.3. S/p fluid resuscitation with 2.5 L NS. On bicarb gtt. Continue to monitor. ID #Severe Sepsis Patient tachycardic and tachypneic with elevated lactate and subsequent anion gap acidosis. Etiology unclear, possible intraabdominal. UA with culture, Blood cultures collected. Started on empiric cefepime and vanc. Continue while awaiting culture results. FENGI #Transaminitis Elevated LFTs. Likely in the setting of acute sepsis vs intraabdominal etiology. CT A&P suggestive of mild nonspecific pericholecystic stranding. No radiodense gallstones. Abd US ordered for further evaluation. Rheum #Adrenal Insufficiency Patient on 7.5 mg pred at home. May need stress dosing of steroids in setting of acute sepsis. Heme Elevated INR and PT. HDS. No signs of bleeding. Etiology unclear. Continue to monitor. TARIQ Velázquez in place. Dispo: ICU Lines: right fem line, left a-line Admission and Anticipated Discharge Date Admission Date: January 18, 2023 Subjective Patient is intubated Review of Systems Review of Systems: All systems reviewed & are unremarkable except as noted in HPI & below Physical Exam Physical Exam: Patient is intubated Results & Data Results & Data Vital Signs (Past 12 Hours) Vital Signs Pulse Resp BP Pulse Ox O2 Del Method O2 Flow Rate FiO2 01/20/23 23:18 149/82 H 01/20/23 22:57 81 24 141/78 H 97 Nasal Cannula 2 01/20/23 22:01 85 25 H 147/83 H 100 Nasal Cannula 2 01/20/23 20:14 Nasal Cannula 2 01/20/23 20:10 Nasal Cannula 5 01/20/23 20:00 166/93 H 01/20/23 17:00 90 26 H 97 01/20/23 16:00 90 32 H 97 01/20/23 15:00 93 H 37 H 96 01/20/23 14:00 93 H 31 H 99 01/20/23 13:00 94 H 30 H 88 L 01/20/23 12:00 93 H 28 H 98 01/20/23 15:35 93 H 23 96 25 01/20/23 15:02 70 01/20/23 15:02 25 01/20/23 15:02 70 132/76 PG Care Time/CCT Total # of Minutes Spent Total Time Spent with Patient: Total time spent is greater than 50% in coordination of care (as documented) at patient's floor/unit and/or counseling patient: Coding Level of Care Code 38672 SUB INP/OBS CARE 2/35MIN Diagnoses Sepsis A41.9
[2023-01-21] MEDS: fentaNYL citrate PF 100 MCG/2 ML VIAL IV PRN ×5 (01:31→09:29)
[2023-01-21 02:23] LABS: Basophils # (auto) 0.01 K/uL (0-0.2); Basophils % (auto) 0.1 %; Eosinophils # (auto) 0.01 K/uL (0-0.50); Eosinophils % (auto) 0.1 %; Hematocrit (blood only) 31.3 % (37.0-47.0); Hemoglobin 10.4 g/dl (12.0-16.0); Immature Granulocytes # (auto) 0.15 K/uL (0.01-0.20); Immature Granulocytes % (auto) 1.2 %; Lymphocytes # (auto) 1.97 K/uL (1.2-3.4); Lymphocytes % (auto) 15.4 %; Mean Corpuscular Hemoglobin 27.6 pg (25.0-34.0); Mean Corpuscular Hgb Conc 33.2 g/dL (32.0-36.0); Mean Platelet Volume 10.8 fL (9.4-12.4); Monocytes # (auto) 1.01 K/uL (0.11-0.59); Monocytes % (auto) 7.9 %; Neutrophils # (auto) 9.66 K/uL (1.40-6.50); Neutrophils % (auto) 75.3 %; Nucleated RBC # (auto) 0.13 K/uL (0-0.12); Platelet Count 119 K/uL (130-400); RDW Coefficient of Variation 17.6 % (11.5-14.5); RDW Standard Deviation 51.7 fL (36.4-46.3); Red Blood Count 3.77 M/uL (4.20-5.40); White Blood Count 12.81 K/ul (4.8-10.8)
[2023-01-21 02:40] LABS: Bilirubin Direct 0.2 mg/dl (0-0.2); Bilirubin,Total 0.7 mg/dl (0.2-1.0); Magnesium 2.3 mg/dl (1.7-2.4); Phosphorus 4.5 mg/dl (2.5-4.9); Total Protein 5.6 gm/dl (6.0-8.3)
[2023-01-21 03:03] LABS: Partial Thromboplastin Ratio 3.3
[2023-01-21 03:18] LABS: Partial Thromboplastin Time 94.2 Seconds (21.0-31.0)
--- NOTE | 2023-01-21 07:17 | Critical Care Progress Note ---
Date of Service January 21, 2023 Assessment & Plan (1) [facility] (acute liver failure): Plan: Reason Critically Ill: Patient presents with acute severe metabolic acidosis in the setting of elevated liver enzymes, encephalopathy, and MURRAY. She was intubated in the EMD to allow for resuscitation and correction of her acid base balance with her known history of sever ICM with EF 25-30%. If not reversible or improving and if unable to wean from ventilator transition to palliation. Neuro - Metabolic Encephalopathy weaned sedation hopeful to have extubation -Repeat ammonia decreased Cardiac - HFrEF, ICM, Elevated HScTNI, Shock, MILD MR - She has not needed vasopressor support and has remained hemodynamically stable - Reviewed echocardiogram: no bubble study -Per family: while in and after hospice patient had worked to wean off all cardiac meds and preferred to not reinstitute medical treatment for ischemic cardiomyopathy Respiratory -terminal extubation yesterday at approximately 1700 GI -acute liver failure: mildly improved - Patient arrives with no history of cirrhosis- she is with elevated INR to 1.7 and acute onset of acute encephalopathy Grade II that progressed to Grade III and lactic acidosis - Acute hepatitis panel: pending -Reviewed GI consultation: team signed off 01/20 -coags improving -Portal venous duplex reviewed -Mucomyst protocol ordered: completed majority of protocol: discontinued once extubated RENAL/LYTES - MURRAY on CKD: Stage IIIb, mildly worsening - 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 - Lactic acid acidosis: Improved -Trial of Lasix: 40 mg IV x1 -Hypokalemia: resolved - Velázquez placed for accurate I/O ENDO - Hypothyroidism - On Synthroid at home -T4 within normal limits Rheumatoid arthritis -On daily prednisone 7.5 mg and hydroxychloroquine -Stress dose steroids 50 mg hydrocortisone every 8x2 doses -Continue 7.5 mg prednisone daily HEME - HX of RA on immunosuppressant agents: Hydroxychloroquine - Hold immunosuppressant agents Supratherapeutic INR: improving - Peripheral smear reviewed more consistent with acute liver failure and not DIC DVT prophylaxis: heparin infusion secondary to ischemic right upper extremity ID - - Received Cefepime and Vancomycin in EMD- currently without source - Urine clean - Discontinued IV antibiotics as this does not appear to be infection related -Benefits of discontinuing antibiotics would be to limit extraneous fluids given ischemic cardiomyopathy and avoid renal impairment given acute kidney injury Musculoskeletal: Right radial artery thrombus, [id number] -Orthopedic surgery consult -Discussed with interventional cardiology who reviewed arterial duplex. There are concerns of possible proximal abnormalities/anomalies not limited to known distal abnormalities at radial artery. Discussed intra-arterial lytics and ballooning which would likely be of minimal benefit and pose significant risks to patient's current medical condition including but not limited to worsening acute kidney injury. Discussed with family and these risks are not in line with patient's long-term goals. LINES/IV ACCESS - CVL, Arterial line, Velázquez catheter, DISPO - ICU We did discuss options for definitive feeding access and artificial nutrition and hydration, again these are not in line with patient's long-term wishes. Generally they feel that patient would desire home hospice if possible. We will consult palliative care to facilitate further discussion as well as possibility at home hospice (2) Respiratory failure: (3) ICD (implantable cardioverter-defibrillator), single, in situ: (4) Chronic kidney disease, stage III (moderate): (5) Hyperlipidemia: (6) Chronic systolic CHF (congestive heart failure): (7) Ischemic cardiomyopathy: (8) CAD (coronary artery disease): (9) Shock: Admission and Anticipated Discharge Date Admission Date: January 18, 2023 Supervising Physician Co-Signing Physician Notes I have personally spent 85 minutes of critical care time in the direct management of this patient. This is a life/limb threatening event. This includes time spent evaluating patient, direct bedside care, chart review, placing orders, interpretation of diagnostic studies, discussion with consultants, patient, and/or family members regarding treatment decisions, as well as other required patient management activities. This time is exclusive of all separately billable procedures, and teaching time and separate from and in addition to any other critical care service time. Subjective Patient able to follow commands. Waxing and waning mental status. Not complaining of pain currently however has requested pain medication. Currently lacks capacity: Insufficient ability to understand implications/complexities of multiple medical treatments. Discussed with family prognosis, current status, medical treatment options. Physical Exam Physical Exam: General: Sedated. Glascow Coma Scale: Eyes: 2, Verbal 1t, Motor 4, Total 7T Skin: Right hand cool, purple, taunt: Obvious evidence of ischemia Head: Atraumatic Ears, nose, mouth and throat: airway obscured by endotracheal tube Cardiovascular: Improved acrocyanosis Respiratory: Ventilator settings reviewed Gastrointestinal: Non distended Musculoskeletal: As described above Results & Data Results & Data Vital Signs (Past 12 Hours) Vital Signs Temp Pulse Resp BP Pulse Ox O2 Del Method O2 Flow Rate 01/21/23 06:04 74 12 127/81 100 Nasal Cannula 2 01/21/23 05:10 36.4 C L 01/21/23 04:56 75 11 L 128/69 100 Oxymask 5 01/21/23 03:12 76 14 122/67 96 Nasal Cannula 2 01/21/23 02:14 78 15 138/71 100 Nasal Cannula 2 01/21/23 01:18 79 14 132/71 100 Nasal Cannula 2 01/21/23 00:14 80 29 H 126/66 99 Nasal Cannula 2 01/20/23 23:18 149/82 H 01/20/23 22:57 81 24 141/78 H 97 Nasal Cannula 2 01/20/23 22:01 85 25 H 147/83 H 100 Nasal Cannula 2 01/20/23 20:14 Nasal Cannula 2 01/20/23 20:10 Nasal Cannula 5 01/20/23 20:00 166/93 H Coding Level of Care Code 45720 CRITICAL CARE 1ST 30-74M Additional Critical Care Time Additional 30min Critical Care Time: Yes - 42711 Diagnoses [facility] (acute liver failure) K72.00 Respiratory failure J96.90 ICD (implantable cardioverter-defibrillator), single, in situ Z95.810 Chronic kidney disease, stage III (moderate) N18.30 Hyperlipidemia E78.5 Chronic systolic CHF (congestive heart failure) I50.22 Ischemic cardiomyopathy I25.5 CAD (coronary artery disease) I25.10 Associated angina: without angina Coronary Disease-Associated Artery/Lesion type: ely sh[place]one artery [place] vs. transplanted heart: ely shoshone heart Shock R57.9 Additional Codes Critical Care Time - Additional 30min Critical Care Time: Yes - 80618 ([id number]) (8) CAD (coronary artery disease) Associated angina: without angina Coronary Disease-Associated Artery/Lesion type: ely [place] artery [place] vs. transplanted heart: ely shoshone heart Qualified Code(s): I25.10 - Atherosclerotic heart disease of ely shoshone coronary artery without angina pectoris
[2023-01-21 07:52] LABS: Basophils # (auto) 0.02 K/uL (0-0.2); Basophils % (auto) 0.2 %; Eosinophils # (auto) 0.04 K/uL (0-0.50); Eosinophils % (auto) 0.3 %; Hematocrit (blood only) 31.9 % (37.0-47.0); Hemoglobin 10.5 g/dl (12.0-16.0); Immature Granulocytes # (auto) 0.13 K/uL (0.01-0.20); Immature Granulocytes % (auto) 1.1 %; Lymphocytes # (auto) 2.24 K/uL (1.2-3.4); Lymphocytes % (auto) 19.1 %; Mean Corpuscular Hgb Conc 32.9 g/dL (32.0-36.0); Mean Corpuscular Volume 85.1 fL (80.0-100.0); Mean Platelet Volume 11.2 fL (9.4-12.4); Monocytes # (auto) 0.97 K/uL (0.11-0.59); Monocytes % (auto) 8.3 %; Neutrophils # (auto) 8.33 K/uL (1.40-6.50); Nucleated RBC % (auto) 0.9 %; Platelet Count 123 K/uL (130-400); RDW Coefficient of Variation 17.6 % (11.5-14.5); RDW Standard Deviation 52.9 fL (36.4-46.3); Red Blood Count 3.75 M/uL (4.20-5.40); White Blood Count 11.73 K/ul (4.8-10.8)
[2023-01-21 08:03] LABS: BUN Creatinine Ratio 24.6 (10-20); Calcium 8.3 mg/dl (8.6-10.3); Creatinine Clr Calc Pharmacy 16.1 ml/min; Est GFR (Non-African American) 21.6 ml/min; Potassium 3.6 mmol/L (3.5-5.1)
[2023-01-21] MEDS: predniSONE 2.5 MG TAB PO SCH (09:11)
[2023-01-21] MEDS ORDERED: fentaNYL citrate PF 100 MCG/2 ML VIAL IV PRN (09:48)
[2023-01-21 11:05] LABS: Albumin Level 3.1 gm/dl (3.4-5.0); Bilirubin Direct 0.2 mg/dl (0-0.2); Bilirubin,Total 0.6 mg/dl (0.2-1.0); Total Protein 5.8 gm/dl (6.0-8.3)
[2023-01-21 11:11] LABS: INR 1.2 (0.9-1.1); Prothrombin Time 13.5 Seconds (9.0-12.0)
[2023-01-21 11:14] LABS: Partial Thromboplastin Ratio 2.3; Partial Thromboplastin Time 65.7 Seconds (21.0-31.0)
[2023-01-21 11:20] LABS: Fibrinogen 186 mg/dl (184-400)
[2023-01-21] MEDS ORDERED: HYDROmorphone BOLUS from BAG IV PRN (12:01)
[2023-01-21] MEDS ORDERED: LORazepam 0.5 MG TAB PO PRN (12:02)
[2023-01-21] MEDS ORDERED: ONDANSETRON INJ 2 MG/ML 2 ML VIAL IV PRN (12:02)
[2023-01-21] MEDS ORDERED: LORazepam 2 MG/1 ML VIAL IV PRN ×2 (12:02→12:04)
[2023-01-21] MEDS ORDERED: ONDANSETRON 4 MG OD TAB SL PRN (12:02)
[2023-01-21] MEDS ORDERED: MoRPHine BOLUS from BAG IV PRN (12:07)
[2023-01-21] MEDS ORDERED: MoRPHine SULF/NSS 250 MG/250 ML BTL IV SCH (12:15)
[2023-01-21] MEDS ORDERED: HYDROmorphone/NSS 100 MG/100 ML BAG IV SCH (12:15)
[2023-01-21] MEDS: HEPARIN SODIUM/DEXTROSE 25,000 UNITS/500 ML BAG IV SCH (12:20)
--- NOTE | 2023-01-21 12:48 | Palliative Care Consultation ---
Date of Consultation January 21, 2023 Assessment & Plan (1) Pain: Primarily right upper extremity with radial artery thrombosis and ischemia Given her renal failure, would avoid morphine due to concern for opioid toxicity. Fentanyl has been effective for her but cannot be administered outside of the ICU Discussed with her daughters. She has been receiving fentanyl approximately every hour. She is also likely to have progressive pain and would benefit from opioid infusion. Will start hydromorphone infusion with prn bolus dosing (2) Palliative care encounter: When I asked Mrs. Brannon how she was coping she told me "I want to go to [facility]". I spoke with her and her daughters about our previous conversation and her desire for hospice care. She tells me that this has not changed. In the last nine months, she has previously made choices focused on comfort and symptom management, including hospice, deactivation of her ICD, but has also had hospitalization and intubation. We talked about what her goals are for her care moving forward and she told me that she did not want any further interventions and "Just want to be comfortable." She talked about going to [facility] multiple times during the conversation and we discussed not being able to hasten her dying time but being able to stop disease treatment interventions including labs, monitors, some medications with focus on medications for comfort and symptom management only. She told me that her wish was for comfort focused care. We talked about her going home with hospice care when her pain is adequately controlled. She expressed concern about being a burden to her family. Dr Jones also presented option for amputation of her ischemic arm for analgesia. Family asked if pain could be controlled without amputation and we discussed opioid infusion. They declined surgical option and prefer opioid infusion. I talked with Mrs. Brannon about possible increased lethargy with infusion and she told me that she'd rather be "knocked out". Will monitor on hydromorphone infusion and reassess when pain is adequately controlled. If she is stable for discharge at that time, we can revisit home with hospice or other options. Discussed with RN and Dr. Paez. History of Present Illness Reason for Consultation: goals of care Requesting Physician: Dr. Jones Attending Physician: Izaiah Paez History of Present Illness 82 yo lady with history of ischemic cardiomyopathy, PAD and CKD who was initially seen by palliative care in April 2022 during admission for heart failure exacerbation. At that time, she had requested comfort focused approach to her care and was discharged to home on hospice. She did well at home and subsequently was discharged from hospice. She has had two admissions since that time including a recent admission for PSBO and her current admission where she presented with acute liver failure, respiratory failure with ventilator support and MURRAY. She was also found to have ischemia of her right upper extremity due to thrombus of the right radial artery. She was terminally extubated yesterday and has been hemodynamically stable. She is awake and complains of pain all over, particularly in her right arm. She has been receiving IV fentanyl with relief. Allergies Allergy/AdvReac Type Severity Reaction Status Date / Time gabapentin AdvReac Intermediate SHAKING, Verified 01/18/23 15:41 JERKING MOVEMENTS ondansetron [From Zofran] AdvReac Intermediate Unknown Unverified 01/18/23 17:15 benztropine [From Cogentin] AdvReac Shakiness, Verified 01/18/23 15:41 jerking movements metoclopramide [From Reglan] AdvReac Shakiness, Verified 01/18/23 15:41 jerking movements Home Medications Medication Instructions Recorded Confirmed Type lorazepam 0.5 mg tablet 0.5 mg PO Q4H PRN anxiety #20 tabs 04/30/22 01/18/23 Rx prednisone 5 mg tablet 7.5 mg PO DAILY 05/06/22 01/18/23 History levothyroxine 100 mcg tablet 100 mcg PO DAILY #90 tabs 10/15/22 01/18/23 Rx acetaminophen 500 mg oral powder 1,000 mg PO Q6H PRN Pain 11/08/22 01/18/23 History packet (Tylenol Extra Strength) pantoprazole 40 mg tablet,delayed 40 mg PO BID #180 tabs 11/10/22 01/18/23 Rx release rotigotine 2 mg/24 hour 2 mg transdermal DAILY 11/10/22 01/18/23 History transdermal 24 hour patch (Neupro) furosemide 20 mg tablet (Lasix) 20 mg PO DAILY PRN weight gain #90 11/30/22 01/18/23 Rx tabs tramadol 50 mg tablet 50 mg PO TID PRN pain #90 tabs 12/20/22 01/18/23 Rx amoxicillin 875 mg-potassium 1 tab PO BID #20 tabs 01/16/23 01/18/23 Rx clavulanate 125 mg tablet hydroxychloroquine 200 mg tablet 200 mg PO DAILY #30 tabs 01/17/23 01/18/23 Rx (Plaquenil) Patient History Medical History Acid reflux Acute encephalopathy Acute hyponatremia Acute hyponatremia Acute hypoxemic respiratory failure Acute metabolic encephalopathy Acute PR Acute UTI CAD (coronary artery disease) PR in [place] in 02/2022. 1 stent placed (believe LCx, but not sure). 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 Dehydration, mild DVT prophylaxis DVT prophylaxis Dysuria Elevated troponin Hiatal hernia History of Hodgkin's lymphoma S/P RADIATION/CHEMO (2000) History of pelvic fracture Hyperlipidemia Hypertension Hypothyroidism Ischemic cardiomyopathy Mixed stress and urge urinary incontinence Nausea & vomiting On amiodarone therapy Restless leg syndrome Rheumatoid arthritis ON CHRONIC PREDNISONE 7.5MG DAILY Sciatica Scoliosis Stage 3b chronic kidney disease Ventricular tachycardia Surgical History H/O foot surgery 2ND RT TOE REMOVED History of bilateral cataract extraction RIGHT CATARACT EXTRACTION WITH IOL= 04/05/18= MAC SEDATION AT [facility] History of colonoscopy History of gynecologic surgery ANTERIOR AND POSTERIOR REPAIR - colporrhaphy (for pelvic relaxation) History of removal of cyst HEAD (BENIGN) History of tonsillectomy History of tooth extraction History of total knee replacement RT History of urologic surgery [place] [facility] [place] coronary artery stent placement S/P vaginal hysterectomy Status post right knee replacement Family History Mother , age 80 Cardiac disorder Family history of lung cancer Brother Diabetes Family history of lung cancer Family history of diabetes mellitus Daughter Breast cancer Father , age 57 Cardiac disorder Grandmother Diabetes Aunt Ovarian cancer paternal aunt Grandmother (Paternal) Family history of diabetes mellitus Other Cancer Heart disease No family history of adverse response to anesthesia No family history of bleeding disorder Denies family history of Colon cancer Colorectal cancer Social History Smoking Status: Former smoker Tobacco Type: Cigarettes Cigarettes Per Day: QUIT + 30 YEARS AGO; Second Hand Exposure: No; Do You Dip or Chew Tobacco: No; Hx Alcohol Use: No Hx Substance Use: No Preferred Language: Egyptian Communication Ability: Impaired Communication Ability Comment: Non-verbal, confused at this time. 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 [employer] Feels Safe at Home: Yes Childhood Exposure to Second-Hand Smoke: Yes (parent smoked) Diet: regular Dental Care, Regularly: Yes Sunscreen Use: Yes (occasionally) Assistive Devices: Walker Review of Systems Review of Systems: ESAS Pain 3/3 Dyspnea 1/3 Drowsiness 1/3 Anxiety 0/3 NAusea 0/3 Physical Exam Constitutional: + ill appearing Respiratory: normal respiratory effort; no labored breathing Cardiovascular: Rate/Rhythm: regular rate and regular rhythm ischemia right forearm mottling left forearm Gastrointestinal (Abdomen): nontender Neurologic: awake; not confused Results & Data Vital Signs (Past 12 Hours) Vital Signs Temp Pulse Resp BP Pulse Ox O2 Del Method O2 Flow Rate 01/21/23 07:00 73 13 97 Nasal Cannula 2 01/21/23 07:57 Nasal Cannula 2 01/21/23 06:04 74 12 127/81 100 Nasal Cannula 2 01/21/23 05:10 97.5 F L 01/21/23 04:56 75 11 L 128/69 100 Oxymask 5 01/21/23 03:12 76 14 122/67 96 Nasal Cannula 2 01/21/23 02:14 78 15 138/71 100 Nasal Cannula 2 01/21/23 01:18 79 14 132/71 100 Nasal Cannula 2 PG Care Time/CCT Total # of Minutes Spent Total Time Spent: 75 Total Time Spent with Patient: Total time spent is greater than 50% in coordination of care (as documented) at patient's floor/unit and/or counseling patient: [id number] Symptom management, goals of care, patient and family education and support, coordination of care Coding Level of Care Code 14641 INT INP/OBS CARE 3/75MIN Diagnoses Pain R52 Palliative care encounter Z51.5
[2023-01-21] MEDS: HYDROmorphone BOLUS from BAG IV PRN (14:10)
[2023-01-21 14:12] LABS: HBSAG NON-REACTIVE (NON-REACTIVE); Hepatitis A Antibody IgM NON-REACTIVE (NON-REACTIVE); Hepatitis B Core Antibody IgM NON-REACTIVE (NON-REACTIVE)
--- NOTE | 2023-01-21 23:07 | Hospitalist Progress Note ---
Date of Service January 21, 2023 Assessment & Plan (1) Sepsis: Plan: 82 y/o female with a PMHx of ischemic cardiomyopathy 2/2 [place] with ICD placed since deactivated, CAD s/p stent placement, adrenal insufficiency, restless leg syndrome, CKD3, RA on prednisone 7.5 mg QD, hypothyroidism, HTN, HLD here for readmission after discharge 01/16 for partial small bowel obstruction now with altered mental status and lab abnormalities who clinically deteriorated in the ED requiring intubation and sedation admitted to ICU level care. Family meeetings being held with ICU team regarding how aggressive treatment will be. I was present during multidiscplinary rounds. Patient is now extubated and is on full comfort measures, will transfer out of ICU. Currently no plans for escalation of care. Neuro #Acute Encephalopathy Etiology unclear. Likely in the setting of severe sepsis. Sedation is off and intubated. Respiratory #Acute Respiratory Failure Likely in the setting of acidosis and sepsis. Intubated, mechanical ventilation. Will trial for 24 hours per advanced directive. Family at bedside. CV #Extensive cardiac history. CAD with stent placement. Ischemic cardiomyopathy following [place]. Had ICD placed - has since been deactivated. Patient DNR. #Elevated troponin, demand ischemia 2/2 septic shock \ Renal/Metabolic #Elevated Anion Gap Metabolic Acidosis Etiology unclear. Lactate 6.8 --> 8.0. ABG: pH 7.22 pCO2 20 pO2 106 HCO3 8. Patient s/p 3 amps of HCO3. Now on HCO3 gtt 150 mL/hr. pH improved after HCO3. Q4H ABG. #MURRAY on CKD Cr 1.93 on admit with electrolyte abnormalities - K 5.2, Na 131, HCO3 8. Cr on discharge 01/16 of 1.3. S/p fluid resuscitation with 2.5 L NS. On bicarb gtt. Continue to monitor. ID #Severe Sepsis Patient tachycardic and tachypneic with elevated lactate and subsequent anion gap acidosis. Etiology unclear, possible intraabdominal. UA with culture, Blood cultures collected. Started on empiric cefepime and vanc. Continue while awaiting culture results. FENGI #Transaminitis Elevated LFTs. Likely in the setting of acute sepsis vs intraabdominal etiology. CT A&P suggestive of mild nonspecific pericholecystic stranding. No radiodense gallstones. Abd US ordered for further evaluation. Rheum #Adrenal Insufficiency Patient on 7.5 mg pred at home. May need stress dosing of steroids in setting of acute sepsis. Heme Elevated INR and PT. HDS. No signs of bleeding. Etiology unclear. Continue to monitor. TARIQ Sidhuey in place. Dispo: ICU Lines: right fem line, left a-line Admission and Anticipated Discharge Date Admission Date: January 18, 2023 Subjective Patient reports no new symptoms. Review of Systems Review of Systems: All systems reviewed & are unremarkable except as noted in HPI & below Physical Exam Physical Exam: Patient is extubated and comfortable. Results & Data Results & Data Vital Signs (Past 12 Hours) Vital Signs O2 Del Method O2 Flow Rate 01/21/23 20:00 Nasal Cannula 2 PG Care Time/CCT Total # of Minutes Spent Total Time Spent with Patient: Total time spent is greater than 50% in coordination of care (as documented) at patient's floor/unit and/or counseling patient: Coding Level of Care Code 55552 SUB INP/OBS CARE 2/35MIN Diagnoses Sepsis A41.9
--- NOTE | 2023-01-22 23:30 | Hospitalist Progress Note ---
Date of Service January 22, 2023 Assessment & Plan (1) Sepsis: Plan: 82 y/o female with a PMHx of ischemic cardiomyopathy 2/2 [place] with ICD placed since deactivated, CAD s/p stent placement, adrenal insufficiency, restless leg syndrome, CKD3, RA on prednisone 7.5 mg QD, hypothyroidism, HTN, HLD here for readmission after discharge 01/16 for partial small bowel obstruction now with altered mental status and lab abnormalities who clinically deteriorated in the ED requiring intubation and sedation admitted to ICU level care. Patient is now on full comfort measures, Currently no plans for escalation of care. Patient will continue on dilaudid drip Neuro #Acute Encephalopathy Etiology unclear. Likely in the setting of severe sepsis. Sedation is off and intubated. Respiratory #Acute Respiratory Failure Likely in the setting of acidosis and sepsis. Intubated, mechanical ventilation. Will trial for 24 hours per advanced directive. Family at bedside. CV #Extensive cardiac history. CAD with stent placement. Ischemic cardiomyopathy following [place]. Had ICD placed - has since been deactivated. Patient DNR. #Elevated troponin, demand ischemia 2/2 septic shock \ Renal/Metabolic #Elevated Anion Gap Metabolic Acidosis Etiology unclear. Lactate 6.8 --> 8.0. ABG: pH 7.22 pCO2 20 pO2 106 HCO3 8. Patient s/p 3 amps of HCO3. Now on HCO3 gtt 150 mL/hr. pH improved after HCO3. Q4H ABG. #MURRAY on CKD Cr 1.93 on admit with electrolyte abnormalities - K 5.2, Na 131, HCO3 8. Cr on discharge 01/16 of 1.3. S/p fluid resuscitation with 2.5 L NS. On bicarb gtt. Continue to monitor. ID #Severe Sepsis Patient tachycardic and tachypneic with elevated lactate and subsequent anion gap acidosis. Etiology unclear, possible intraabdominal. UA with culture, Blood cultures collected. Started on empiric cefepime and vanc. Continue while awaiting culture results. FENGI #Transaminitis Elevated LFTs. Likely in the setting of acute sepsis vs intraabdominal etiology. CT A&P suggestive of mild nonspecific pericholecystic stranding. No radiodense gallstones. Abd US ordered for further evaluation. Rheum #Adrenal Insufficiency Patient on 7.5 mg pred at home. May need stress dosing of steroids in setting of acute sepsis. Heme Elevated INR and PT. HDS. No signs of bleeding. Etiology unclear. Continue to monitor. Velázquez in place. Dispo: ICU Lines: right fem line, left a-line Admission and Anticipated Discharge Date Admission Date: January 18, 2023 Subjective Patient is resting comfortably. Review of Systems Review of Systems: Unobtainable due to cognitive status Physical Exam Physical Exam: Patient is extubated and comfortable. Results & Data Results & Data Vital Signs (Past 12 Hours) Vital Signs O2 Del Method O2 Flow Rate 01/22/23 19:50 Nasal Cannula 2 PG Care Time/CCT Total # of Minutes Spent Total Time Spent with Patient: Total time spent is greater than 50% in coordination of care (as documented) at patient's floor/unit and/or counseling patient: Coding Level of Care Code 83984 SUB INP/OBS CARE 25MIN Diagnoses Sepsis A41.9
[2023-01-23] MEDS ORDERED: ONDANSETRON INJ 2 MG/ML 2 ML VIAL IV PRN (07:38)
[2023-01-23] MEDS ORDERED: GLYCOPYRROLATE 0.2 MG/ML VIAL IV PRN (07:38)
[2023-01-23] MEDS ORDERED: ONDANSETRON 4 MG OD TAB SL PRN (07:38)
[2023-01-23] MEDS: HYDROmorphone BOLUS from BAG IV PRN (16:37)
--- NOTE | 2023-01-23 20:46 | Death Pronouncement Note ---
Date of Service January 23, 2023 Pronouncement Note Admission Date Admission Date: January 18, 2023 Date and Time of Date of : 01/23/23 Time of : 20:30 Contributing Factors (1) Sepsis: (2) Metabolic acidosis: (3) Respiratory failure: (4) [facility] (acute liver failure): Additional Data Confirmation of : no pulse, no respirations, no heart sounds and pupils fixed and dilated Family: at bedside Attending/PCP notified?: Yes Attending physician: Izaiah Paez Resident Activity Tracking Resident Involvement: Resident Care Provided Care Provided: Adult Hospital Medicine
--- NOTE | 2023-01-23 20:48 | Communication Note ---
Date of Service: January 23, 2023 I was called to pronounce the of Shruthi Brannon ( 1940) by Summer Gabriel on 01/23/2023. Upon entering the room, patient was found to be in a terminal state. They were unresponsive to, and did not withdraw from verbal or tactile stimuli. They were unresponsive to corneal, pupillary, and oculocephalic reflexes. On cardiopulmonary exam, they were found to be without detectable carotid pulses, and without spontaneous heart tones or respirations. Time of was pronounced by me on 01/23/2023 at 2030. Attending physician was notified. Next of kin was at bedside. Resident Activity Tracking Resident Involvement: Resident Care Provided Care Provided: Adult Hospital Medicine
--- NOTE | 2023-01-23 22:05 | Discharge Summary ---
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 Patient was seen in heart failure clinic and it was recommended that she go to the ED by the clinician seen there as patient was reportedly responding to internal stimuli and acutely confused. History limited as patient intubated and sedated at the time of evaluation. Upon presentation there was concern for severe sepsis with tachycardia, tachypnea, acute encephalopathy, and elevated lactate of 6.8 --> 8.0. Patient was fluid resuscitated with 2.5 L NS. CMP notable for elevated LFTs, MURRAY with Cr 1.93 on admit with electrolyte abnormalities - K 5.2, Na 131, HCO3 8. CBC unremarkable. HsTrop 368.1. She was also started on empiric abx zosyn/cefepime. She was found to have an elevated gap metabolic acidosis with a pH of 7.22 and a HCO3 of 8. Patient rapidly clinically deteriorated with acute respiratory failure requiring intubation. She ended up requiring 3 amps of HCO3. Was also given calcium chloride and ketamine. For further information on ED course see ED provider note. Principal Diagnosis sepsis Discharge Exam Patient was alive during time of examination. Patient is extubated and comfortable. Please refer to note. 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 01/19/23 09:39 Consult Gastroenterology Routine 01/19/23 10:35 Consult Orthopedic Surgery Routine 01/21/23 10:32 Consult Palliative Care Routine Ordered Studies 01/18/23 16:42 CT head/brain wo con Stat 01/18/23 18:56 CT abd pelvis wo con Stat 01/18/23 23:25 US duplex portal hepatic veins Urgent 01/19/23 04:53 US doppler arm [US arterial duplex UE RT] Urgent Hospital Course (1) Sepsis: 82 y/o female with a PMHx of 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 Over course of hospital stay, extensive discussions were made with family. Family decided on comfort measures. Patient was terminally extubated. Patient was placed on dilaudid drip. Patient on 01/23 Please refer to note for time of . Neuro #Acute Encephalopathy Etiology unclear. Likely in the setting of severe sepsis. Respiratory #Acute Respiratory Failure Likely in the setting of acidosis and sepsis. Intubated, mechanical ventilation. Patient was later terminally extubated. CV #Extensive cardiac history. CAD with stent placement. Ischemic cardiomyopathy following RI. Had ICD placed - has since been deactivated. Patient DNR. #Elevated troponin, demand ischemia 2/2 septic shock \ Renal/Metabolic #Elevated Anion Gap Metabolic Acidosis Etiology unclear. Lactate 6.8 --> 8.0. ABG: pH 7.22 pCO2 20 pO2 106 HCO3 8. Patient s/p 3 amps of HCO3. Now on HCO3 gtt 150 mL/hr. pH improved after HCO3. #MURRAY on CKD Cr 1.93 on admit with electrolyte abnormalities - K 5.2, Na 131, HCO3 8. Cr on discharge 01/16 of 1.3. S/p fluid resuscitation with 2.5 L NS. treated with bicarb drip. ID #Severe Sepsis Patient tachycardic and tachypneic with elevated lactate and subsequent anion gap acidosis. Etiology unclear, possible intraabdominal. UA with culture, Blood cultures collected. Started on empiric cefepime and vanc. Continue while awaiting culture results. VAL #Transaminitis Elevated LFTs. Likely in the setting of acute sepsis vs intraabdominal etiology. CT A&P suggestive of mild nonspecific pericholecystic stranding. No radiodense gallstones. Abd US ordered for further evaluation. Rheum #Adrenal Insufficiency Patient on 7.5 mg pred at home. May need stress dosing of steroids in setting of acute sepsis. Heme Elevated INR and PT. HDS. No signs of bleeding. Etiology unclear. Continue to monitor. Velázquez in place. Dispo: ICU Lines: right fem line, left a-line Total Time Total Time Spent Total Time Spent (In Minutes): 20 Discharge Plan Discharge Items Patient Disposition: Other Date/Time: 01/23/23 20:30 Coding Level of Care Code 70852 IN/OBS DISCH 30 MIN/LESS Diagnoses Sepsis A41.9
== END 2023-01-23 21:53 | disposition expired | DRG 871 ==
LOC: ED 16:21 → SUATTDRO 20:59 → 1E 20:59 → 3W 01-21 19:35